=== PATIENT | female | born 1930 | race Caucasian/White ===

== ENCOUNTER → 2016-11-24 | Outpatient (CLI) | payer OTHER ==
[~2016-11-24] MED LIST: ALBU1AER9 INH; AMLO-114 PO; AMLO10TA4 PO; ATOR-22 PO; CALCIUM 150 MG PO; CHOL100010 PO; CHOL20007 PO; CLOP1TAB15 PO; DYZ PO; FLUO10CA48 PO; FLUO20CA35 PO; FLUT1INH INH; LEVO25TA5 PO; LISI40TA PO; METO100T44 PO; MULT-506 PO; MULT-513 PO; OMEG-132 PO; PRED10TA PO; PRLSR20 PO; QSTP PO; SIMV40TA2 PO; TMF75 PO; TPRSR/100 PO; TRIA37.5 PO; VANC5CAP PO; VNTHFA/IN INH; [UNRECOGNIZED DRUG - CODE] PO
[2016-11-24 13:36] LABS: BLOOD UREA NITROGEN 29 mg/dl (7-18); BUN/CREATININE RATIO 26.7 (10-20); CARBON DIOXIDE 29 mmol/L (21-32); CHLORIDE 104 mmol/L (98-107); GLUCOSE 112 mg/dl (70-99); POTASSIUM 3.8 mmol/L (3.5-5.1); SODIUM 139 mmol/L (136-145)
[2016-11-24 13:55] LABS: CALCIUM 9.8 mg/dl (8.5-10.1)
== END | disposition home or self-care (01) ==
LOC: C.LABPVFM 09:07
PROVIDERS: ATTEND Family Medicine
DX: I10 Essential (primary) hypertension (principal); E03.9 Hypothyroidism, unspecified

== ENCOUNTER 2017-05-18 16:30 | Inpatient (IN) | payer OTHER ==
[~2017-05-18] VITALS: Ht 157.5 cm; Wt 73.4 kg
[~2017-05-18 16:30] MED LIST changes: -AMLO10TA4 PO; -ATOR-22 PO; -CHOL20007 PO; -FLUO10CA48 PO; -METO100T44 PO; +METO1TAB69 PO; -MULT-513 PO; -OMEG-132 PO; -PRED10TA PO; -PRLSR20 PO; -QSTP PO; -TPRSR/100 PO; -TRIA37.5 PO; -VANC5CAP PO; -VNTHFA/IN INH; -[UNRECOGNIZED DRUG - CODE] PO
[2017-05-18] MEDS ORDERED: SODIUM CHLORIDE 0.9% 1000ML 1,000 ML IV STA (17:16)
--- NOTE | 2017-05-18 17:34 | EMERGENCY ROOM VISIT NOTE ---
History Report prepared by Henok: Reva Pavon Under the Supervision of: Dr. Jack Vegas M.D. First contact with patient: 17:05 Chief Complaint: FALL Stated Complaint: MULTIPLE FALLS/NAUSEA History of Present Illness The patient is an 86 year old female who presents to the Emergency Room with complaints of multiple falls today. The patient presents to the ED by EMS. She lives at home with her . She fell twice today. The first time she was not feeling lightheaded and just fell to the ground. The second time she fell because she had right hip pain. After the second fall, she started having diarrhea, vomiting, and diaphoresis. She denies any head pain or neck pain. Her family notes that she only ate some yogurt today. She has had a stroke in the past. She is currently on Plavix. She has a history of knee problems and gets cortisone shots regularly. Source of History: patient, family Onset: today Position: other (global) Quality: other (falls) Timing: other (multiple) Associated Symptoms: + diaphoresis, + vomiting, + diarrhea, No headache, No neck pain Review of Systems See HPI for pertinent positives & negatives. A total of 10 systems reviewed and were otherwise negative. Past Medical & Surgical Medical Problems: (1) ROXANNA (acute kidney injury) (2) ROXANNA (acute kidney injury) (3) Asthma (4) HTN (hypertension) (5) Influenza (6) Urinary tract infection (7) UTI (urinary tract infection) Family History Noncontributory secondary to age. Social History Smoking Status: Never Smoker Alcohol Use: none Marital Status: Housing Status: lives with significant other Occupation Status: retired Current/Historical Medications Scheduled Amlodipine Besylate (Norvasc), 10 MG PO DAILY Atorvastatin (Lipitor), 20 MG PO DAILY Calcium (Elite Calcium), 2 TAB PO BID Cholecalciferol (Vitamin D3), 1 TAB PO DAILY Clopidogrel (Plavix), 75 MG PO DAILY Fluoxetine (Prozac), 10 MG PO UD Fluoxetine (Prozac), 20 MG PO DAILY Fluticasone Furoate-Vilanterol (Breo Ellipta), 1 PUFF INH DAILY Levothyroxine Sodium (Levothyroxine Sodium), 1 TAB PO DAILY Lisinopril (Zestril), 40 MG PO DAILY Metoprolol Succinate (Metoprolol Succinate ER), 1 TAB PO DAILY Multivitamins/Minerals (Mvi With Minerals), 1 TAB PO DAILY Crimora-3 Fatty Acids (Fish Oil 500 mg), 2 CAP PO DAILY Omeprazole (Prilosec), 20 MG PO DAILY Triamterene/Hctz (Dyazide 37.5MG/25MG), 1 TAB PO DAILY Scheduled PRN Albuterol Hfa (Ventolin Hfa), 1-2 PUFFS INH QID PRN for SOB/Wheezing Allergies Coded Allergies: Cefuroxime (Verified Allergy, Unknown, Unknown, 05/18/17) Ciprofloxacin (Verified Allergy, Unknown, Unknown, 05/18/17) Codeine (Verified Allergy, Unknown, 05/18/17) Meperidine (Verified Allergy, Unknown, 05/18/17) Oxycodone (Verified Allergy, Unknown, RASH, 05/18/17) Propoxyphene (Verified Allergy, Unknown, 05/18/17) Sulfa Antibiotics (Verified Allergy, Unknown, ., 05/18/17) Sulfamethoxazole (Verified Allergy, Unknown, 05/18/17) Trimethoprim (Verified Allergy, Unknown, 05/18/17) Amphetamine (Unverified Adverse Reaction, Severe, ., 05/18/17) Dextroamphetamine (Unverified Adverse Reaction, Severe, ., 05/18/17) Hydrochlorothiazide (Verified Adverse Reaction, Unknown, GI DISTRESS, ) Methyldopa (Verified Adverse Reaction, Unknown, GI DISTRESS, 09/19/09) Physical Exam Vital Signs Date Time Temp Pulse Resp B/P (MAP) Pulse Ox O2 Delivery O2 Flow Rate FiO2 05/18/17 21:00 75 20 154/76 99 Room Air 05/18/17 20:43 Room Air 05/18/17 19:54 62 20 153/61 98 Room Air 05/18/17 18:39 70 18 153/82 100 Room Air 05/18/17 18:32 63 20 172/70 100 Room Air 70 153/82 66 109/71 05/18/17 17:41 70 05/18/17 17:11 100 Room Air 05/18/17 16:30 36.4 69 18 112/88 100 Room Air Physical Exam GENERAL: Patient is a healthy-appearing well-nourished female HEAD: Normocephalic atraumatic EYES: Ocular movements intact pupils equal and react to light OROPHARYNX mucous membranes are moist no exudates present no erythema or edema present NECK: Supple no nuchal rigidity CHEST: Good equal expansion LUNGS: Clear and equal to auscultation CARDIAC: Normal S1 and S2 ABDOMEN: Soft nontender no guarding BACK: No CVA tenderness EXTREMITIES: Normal muscle strength in all groups no clubbing cyanosis or edema , contusion to the right hip area. NEURO: Patient is following commands and answering questions appropriately. Alert and oriented x3 Cranial Nerves 2-12 grossly intact Medical Decision & Procedures ER Provider Diagnostic Interpretation: X-ray results as stated below per interpretation by me and the radiologist. Radiology results as stated below per my review and radiologist interpretation: CHEST ONE VIEW PORTABLE HISTORY: 86 years-old Female Pt c/o multiple falls acute right hip pain with multiple falls. Acute nausea. COMPARISON: Chest radiograph 08/05/2016 TECHNIQUE: Portable upright AP view of the chest FINDINGS: Cardiac silhouette is mildly enlarged. There is atherosclerosis of the aorta. No pneumothorax, pleural effusion, focal airspace consolidation or overt pulmonary edema. There is mild right hemidiaphragmatic elevation. The lungs are mildly hypoinflated. Bilateral bronchial wall thickening with possible bronchiectasis noted. The bones are grossly intact and are mildly demineralized. Degenerative changes are seen about the shoulders and spine. IMPRESSION: 1. No focal airspace consolidation to suggest pneumonia. 2. Bilateral bronchial wall thickening suggesting bronchitis with possible bronchiectasis. The above report was generated using voice recognition software. It may contain grammatical, syntax or spelling errors. Electronically signed by: Shay Yousif M.D. 05/18/2017 6:39 PM Dictated Date/Time: 05/18/2017 6:34 PM PELVIS 1 OR 2 VIEW ROUTINE, R FEMUR 2 VIEWS ROUTINE HISTORY: 86 years-old Female Pt c/o Rt hip pain acute right-sided hip pain with multiple falls. COMPARISON: Left hip radiographs 02/14/2013 TECHNIQUE: Single AP view of the pelvis with 2 views of the right femur FINDINGS: PELVIS: The bones are mildly demineralized. Moderate osteoarthritis involves the bilateral femoral acetabular joints. Advanced degenerative changes are seen involving the lower lumbar spine. No acute pelvic fracture identified. Moderate soft tissue swelling is noted about the right hip. RIGHT FEMUR: Severe tricompartmental osteoarthritis is noted about the knee. No acute fracture or dislocation. IMPRESSION: 1. Moderate soft tissue swelling about the right hip without acute fracture or dislocation. 2. Background osteopenia is noted with moderate bilateral hip and severe tricompartmental right knee osteoarthritis. The above report was generated using voice recognition software. It may contain grammatical, syntax or spelling errors. Electronically signed by: Shay Yousif M.D. 05/18/2017 6:28 PM Dictated Date/Time: 05/18/2017 6:[address] SCAN OF THE BRAIN WITHOUT IV CONTRAST CLINICAL HISTORY: Multiple falls. COMPARISON STUDY: CT of the brain dated 07/15/2011. TECHNIQUE: Unenhanced axial CT scan of the brain is performed from the vertex to the skull base. CT DOSE: 614.27 mGy.cm FINDINGS: Brain parenchyma: There are age-related involutional changes noting moderate patchy subcortical and periventricular microangiopathic change. There is no hemorrhage, mass effect, or evidence of acute territorial ischemia by CT criteria. Dickey-white matter is preserved. No extra-axial fluid collection is seen. Chronic lacunar infarcts are identified in the right cerebellar hemisphere, the paz, both caudate heads, and the left basal ganglia. Prominent extra-axial CSF is likely related to volume loss and unchanged from 2010. Ventricles, sulci, cisterns: Prominent secondary to involutional change. Intracranial vasculature: There is atherosclerotic calcification of the cavernous carotid intervertebral arteries. Calvarium: The skeletal structures are osteopenic. No depressed calvarial fracture is seen. 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 Sinuses and mastoids: The visualized paranasal sinuses are clear. The mastoid air cells are well pneumatized. Orbits: The bony orbits are grossly intact. There are bilateral ocular lens implants. IMPRESSION: Senescent changes as above with no hemorrhage, mass effect, or evidence of acute territorial ischemia by CT criteria. Electronically signed by: Justin Flores M.D. 05/18/2017 6:03 PM Dictated Date/Time: 05/18/2017 5:59 PM Laboratory Results 05/18/17 17:45 Red Blood Count 3.86, Mean Corpuscular Volume 85.2, Mean Corpuscular Hemoglobin 27.7, Mean Corpuscular Hemoglobin Concent 32.5, Mean Platelet Volume 8.7, Neutrophils (%) (Auto) 85.9, Lymphocytes (%) (Auto) 7.8, Monocytes (%) (Auto) 5.3, Eosinophils (%) (Auto) 0.3, Basophils (%) (Auto) 0.3, Neutrophils # (Auto) 11.51, Lymphocytes # (Auto) 1.04, Monocytes # (Auto) 0.71, Eosinophils # (Auto) 0.04, Basophils # (Auto) 0.04 05/18/17 17:45 Test 05/18/17 17:44 05/18/17 17:45 05/18/17 19:15 Bedside Glucose 131 mg/dl (70-90) White Blood Count 13.39 K/uL (4.8-10.8) Red Blood Count 3.86 M/uL (4.2-5.4) Hemoglobin 10.7 g/dL (12.0-16.0) Hematocrit 32.9 % (37-47) Mean Corpuscular Volume 85.2 fL (80-100) Mean Corpuscular Hemoglobin 27.7 pg (25-34) Mean Corpuscular Hemoglobin Concent 32.5 g/dl (32-36) Platelet Count 265 K/uL (130-400) Mean Platelet Volume 8.7 fL (7.4-10.4) Neutrophils (%) (Auto) 85.9 % Lymphocytes (%) (Auto) 7.8 % Monocytes (%) (Auto) 5.3 % Eosinophils (%) (Auto) 0.3 % Basophils (%) (Auto) 0.3 % Neutrophils # (Auto) 11.51 K/uL (1.4-6.5) Lymphocytes # (Auto) 1.04 K/uL (1.2-3.4) Monocytes # (Auto) 0.71 K/uL (0.11-0.59) Eosinophils # (Auto) 0.04 K/uL (0-0.5) Basophils # (Auto) 0.04 K/uL (0-0.2) RDW Standard Deviation 43.3 fL (36.4-46.3) RDW Coefficient of Variation 14.2 % (11.5-14.5) Immature Granulocyte % (Auto) 0.4 % Immature Granulocyte # (Auto) 0.05 K/uL (0.00-0.02) Anion Gap 12.0 mmol/L (3-11) Est Creatinine Clear Calc Drug Dose 20.3 ml/min Estimated GFR () 27.4 Estimated GFR (Non- 23.6 BUN/Creatinine Ratio 24.6 (10-20) Calcium Level 9.7 mg/dl (8.5-10.1) Total Bilirubin 0.5 mg/dl (0.2-1) Direct Bilirubin 0.1 mg/dl (0-0.2) Aspartate Amino Transf (AST/SGOT) 14 U/L (15-37) Alanine Aminotransferase (ALT/SGPT) 18 U/L (12-78) Alkaline Phosphatase 63 U/L (45-117) Total Creatine Kinase 71 U/L (26-192) Creatine Kinase MB 1.8 ng/ml (0.5-3.6) Creatine Kinase MB Ratio 2.5 (0-3.0) Troponin I 0.030 ng/ml (0-0.045) Total Protein 7.0 gm/dl (6.4-8.2) Albumin 3.5 gm/dl (3.4-5.0) Thyroid Stimulating Hormone (TSH) 3.610 uIu/ml (0.300-4.500) Urine Color DK YELLOW Urine Appearance TURBID (CLEAR) Urine pH 5.0 (4.5-7.5) Urine Specific Freeman 1.020 (1.000-1.030) Urine Protein 2+ (NEG) Urine Glucose (UA) NEG (NEG) Urine Ketones TRACE (NEG) Urine Occult Blood 3+ (NEG) Urine Nitrite POS (NEG) Urine Bilirubin NEG (NEG) Urine Urobilinogen NEG (NEG) Urine Leukocyte Esterase LARGE (NEG) Urine WBC (Auto) >30 /hpf (0-5) Urine RBC (Auto) >30 /hpf (0-4) Urine Hyaline Casts (Auto) 0 /lpf (0-5) Urine Epithelial Cells (Auto) >30 /lpf (0-5) Urine Bacteria (Auto) 4+ (NEG) Urine Pathogenic Casts /lpf (0) Urine Yeast (Auto) (NONE PRSENT) Labs reviewed by ED physician. Medications Administered Medications (Trade) Dose Ordered Sig/Ace Route Start Time Stop Time Status Last Admin Dose Admin Sodium Chloride 1,000 ml @ 999 mls/hr Q1H1M STAT IV 05/18/17 17:16 05/18/17 18:16 DC 05/18/17 17:16 999 MLS/HR Albuterol Sulfate (Ventolin 0.5% 2.5MG/0.5ML Neb) 2.5 mg NOW STAT INH 05/18/17 19:45 05/18/17 19:47 DC 05/18/17 20:37 2.5 MG Amoxicillin (Amoxil Cap) 500 mg NOW STAT PO 05/18/17 19:48 05/18/17 19:49 DC 05/18/17 20:37 500 MG ECG Indication: other (fall) Rate (beats per minute): 68 Rhythm: normal sinus Findings: no acute ischemic change, prolonged QT, no ectopy ED Course 1706: Past medical records reviewed. The patient was evaluated in room A3. A complete history and physical examination was performed. 1715: NSS 1000 ml @ 999 mls/hr IV. 1944: Albuterol Sulfate 2.5 mg INH. 1947: Amoxicillin 500 mg PO. 1950: Upon reexamination the patient is resting comfortably. I discussed results and treatment plan with the patient. She verbalizes agreement and understanding. The patient will be evaluated for further management. 1956: I discussed the patient's case with Dr. Shel[place] [facility] [place]. He has agreed to evaluate the patient for further management and care. Medical Decision Differential diagnosis: Etiologies such as metabolic, infection, hypo/hyperglycemia, electrolyte abnormalities, cardiac sources, intracerebral event, toxicologic, neurologic, as well as others were entertained. This is an 86-year-old female who presents emergency department complaining of multiple falls today along with a right hip hematoma. The patient is also slightly confused per family. She is in acute renal failure. She was given IV bolus of fluid. She does appear to have a urinary tract infection therefore started on Rocephin. I did discuss the case with the hospitalist service who agreed to admit the patient. Patient family were in agreement with the treatment plan. Medication Reconcilliation Current Medication List: was personally reviewed by me Blood Pressure Screening Patient's blood pressure: Normal blood pressure Blood pressure disposition: Did not require urgent referral Consults Time Called: 1951 Consulting Physician: Dr. Shelley [facility] [place] Returned Call: 1956 I discussed the patient's case with him. He has agreed to evaluate the patient for further management and care. Impression Primary Impression: Fall Additional Impressions: Altered mental status Dehydration Scribe Attestation The scribe's documentation has been prepared under my direction and personally reviewed by me in its entirety. I confirm that the note above accurately reflects all work, treatment, procedures, and medical decision making performed by me. Departure Information Dispostion Being Evaluated By Hospitalist Agustin Lindo M.D. (PCP) Patient Instructions My [facility] Problem Qualifiers Primary Impression: Fall Encounter type: initial encounter Qualified Codes: W19.XXXA - Unspecified fall, initial encounter Additional Impressions: Altered mental status Altered mental status type: unspecified Qualified Codes: R41.82 - Altered mental status, unspecified
[2017-05-18 17:57] LABS: BASO % 0.3 %; BASO ABS # 0.04 K/uL (0-0.2); COMPLETE YES; EOS % 0.3 %; HEMATOCRIT 32.9 % (37-47); IG% 0.4 %; LYMPH % 7.8 %; LYMPH ABS # 1.04 K/uL (1.2-3.4); MEAN CELL VOLUME 85.2 fL (80-100); MEAN CORPUSCULAR HEMOGLOBIN 27.7 pg (25-34); MEAN CORPUSCULAR HGB CONC 32.5 g/dl (32-36); MEAN PLATELET VOLUME 8.7 fL (7.4-10.4); MONO % 5.3 %; NEUT % 85.9 %; PLATELET COUNT 265 K/uL (130-400); RED BLOOD COUNT 3.86 M/uL (4.2-5.4); WHITE BLOOD COUNT 13.39 K/uL (4.8-10.8)
--- NOTE | 2017-05-18 18:04 | DIAGNOSTIC IMAGING REPORT ---
CT SCAN OF THE BRAIN WITHOUT IV CONTRAST CLINICAL HISTORY: Multiple falls. COMPARISON STUDY: CT of the brain dated 07/15/2011. TECHNIQUE: Unenhanced axial CT scan of the brain is performed from the vertex to the skull base. CT DOSE: 614.27 mGy.cm FINDINGS: Brain parenchyma: There are age-related involutional changes noting moderate patchy subcortical and periventricular microangiopathic change. There is no hemorrhage, mass effect, or evidence of acute territorial ischemia by CT criteria. Dickey-white matter is preserved. No extra-axial fluid collection is seen. Chronic lacunar infarcts are identified in the right cerebellar hemisphere, the paz, both caudate heads, and the left basal ganglia. Prominent extra-axial CSF is likely related to volume loss and unchanged from 2011. Ventricles, sulci, cisterns: Prominent secondary to involutional change. Intracranial vasculature: There is atherosclerotic calcification of the cavernous carotid intervertebral arteries. Calvarium: The skeletal structures are osteopenic. No depressed calvarial fracture is seen. 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 Sinuses and mastoids: The visualized paranasal sinuses are clear. The mastoid air cells are well pneumatized. Orbits: The bony orbits are grossly intact. There are bilateral ocular lens implants. IMPRESSION: Senescent changes as above with no hemorrhage, mass effect, or evidence of acute territorial ischemia by CT criteria. Electronically signed by: Justin Flores M.D. 05/18/2017 6:03 PM Dictated Date/Time: 05/18/2017 5:59 PM
[2017-05-18 18:15] LABS: BUN/CREATININE RATIO 24.6 (10-20); CALCIUM 9.7 mg/dl (8.5-10.1); CREATININE 1.9 mg/dl (0.60-1.20); POTASSIUM 3.8 mmol/L (3.5-5.1)
[2017-05-18 18:25] LABS: CKMB/CK RATIO 2.5 (0-3.0); THYROID STIMULATING HORMONE 3.61 uIu/ml (0.300-4.500)
--- NOTE | 2017-05-18 18:29 | DIAGNOSTIC IMAGING REPORT ---
PELVIS 1 OR 2 VIEW ROUTINE, R FEMUR 2 VIEWS ROUTINE HISTORY: 86 years-old Female Pt c/o Rt hip pain acute right-sided hip pain with multiple falls. COMPARISON: Left hip radiographs 02/14/2013 TECHNIQUE: Single AP view of the pelvis with 2 views of the right femur FINDINGS: PELVIS: The bones are mildly demineralized. Moderate osteoarthritis involves the bilateral femoral acetabular joints. Advanced degenerative changes are seen involving the lower lumbar spine. No acute pelvic fracture identified. Moderate soft tissue swelling is noted about the right hip. RIGHT FEMUR: Severe tricompartmental osteoarthritis is noted about the knee. No acute fracture or dislocation. IMPRESSION: 1. Moderate soft tissue swelling about the right hip without acute fracture or dislocation. 2. Background osteopenia is noted with moderate bilateral hip and severe tricompartmental right knee osteoarthritis. The above report was generated using voice recognition software. It may contain grammatical, syntax or spelling errors. Electronically signed by: Shay Yousif M.D. 05/18/2017 6:28 PM Dictated Date/Time: 05/18/2017 6:24 PM
[2017-05-18] MEDS ORDERED: FLUO10CA48 PO ×2 (18:35)
[2017-05-18] MEDS ORDERED: TPRSR/100 PO ×2 (18:35)
[2017-05-18] MEDS ORDERED: FLUO20CA35 PO ×2 (18:35)
[2017-05-18] MEDS ORDERED: CLOP1TAB15 PO (18:35)
[2017-05-18] MEDS ORDERED: CHOL20007 PO ×2 (18:35)
[2017-05-18] MEDS ORDERED: PRLSR20 PO ×2 (18:35)
[2017-05-18] MEDS ORDERED: FLUT1INH INH ×2 (18:35)
[2017-05-18] MEDS ORDERED: MULT-513 PO ×2 (18:35)
[2017-05-18] MEDS ORDERED: TRIA37.5 PO ×2 (18:35)
[2017-05-18] MEDS ORDERED: VNTHFA/IN INH ×2 (18:35)
[2017-05-18] MEDS ORDERED: OMEG-132 PO ×2 (18:35)
[2017-05-18] MEDS ORDERED: LISI40TA PO ×2 (18:35)
[2017-05-18] MEDS ORDERED: ATOR-22 PO ×2 (18:35)
[2017-05-18] MEDS ORDERED: [UNRECOGNIZED DRUG - CODE] PO ×2 (18:35)
[2017-05-18] MEDS ORDERED: LEVO25TA5 PO ×2 (18:35)
[2017-05-18] MEDS ORDERED: AMLO10TA4 PO ×2 (18:35)
--- NOTE | 2017-05-18 18:40 | DIAGNOSTIC IMAGING REPORT ---
CHEST ONE VIEW PORTABLE HISTORY: 86 years-old Female Pt c/o multiple falls acute right hip pain with multiple falls. Acute nausea. COMPARISON: Chest radiograph 08/05/2016 TECHNIQUE: Portable upright AP view of the chest FINDINGS: Cardiac silhouette is mildly enlarged. There is atherosclerosis of the aorta. No pneumothorax, pleural effusion, focal airspace consolidation or overt pulmonary edema. There is mild right hemidiaphragmatic elevation. The lungs are mildly hypoinflated. Bilateral bronchial wall thickening with possible bronchiectasis noted. The bones are grossly intact and are mildly demineralized. Degenerative changes are seen about the shoulders and spine. IMPRESSION: 1. No focal airspace consolidation to suggest pneumonia. 2. Bilateral bronchial wall thickening suggesting bronchitis with possible bronchiectasis. The above report was generated using voice recognition software. It may contain grammatical, syntax or spelling errors. Electronically signed by: Shay Yousif M.D. 05/18/2017 6:39 PM Dictated Date/Time: 05/18/2017 6:34 PM
[2017-05-18 19:33] LABS: URINE APPEARANCE TURBID (CLEAR); URINE BILIRUBIN NEG (NEG); URINE COLOR DK YELLOW; URINE EPITHELIAL CELL AUTO >30 /lpf (0-5); URINE NITRITE POS (NEG); UROBILINOGEN NEG (NEG); ZZURINE CULT IF INDIC CATH YES
[2017-05-18 19:34] LABS: MANUAL MICROSCOPIC REQUIRED? NO; REVIEW REQ? YES
[2017-05-18] MEDS ORDERED: ALBUTEROL 0.5% NEB SOLN 2.5 MG/0.5 ML VIAL INH STA (19:45)
[2017-05-18] MEDS ORDERED: AMOXICILLIN 250 MG CAP PO STA (19:48)
[2017-05-18 20:43] VITALS: Ht 157.5 cm; Wt 73.4 kg
[2017-05-18] MEDS ORDERED: ALBUTEROL HFA 8 GM INHALER INH PRN (21:00)
[2017-05-18] MEDS ORDERED: ACETAMINOPHEN 325 MG TAB PO PRN (21:00)
[2017-05-18] MEDS ORDERED: ONDANSETRON INJ 2 MG/ML 2 ML VIAL IV PRN (21:00)
[2017-05-18] MEDS ORDERED: POLYETHYLENE (MIRALAX) 17 GM PACK PO PRN (21:00)
[2017-05-18] MEDS ORDERED: MAGNESIUM HYDROXIDE SUSP 30 ML UDC PO PRN (21:00)
[2017-05-18] MEDS ORDERED: ALUMINUM/MAGNESIUM/SIMETH (MAALOX MAX) 30 ML UDC PO PRN (21:00)
--- NOTE | 2017-05-18 21:10 | History and Physical ---
History & Physical Date & Time of Service: May 18, 2017 at 21:03 Chief Complaint: Multiple Falls/Nausea Primary Care Physician: Agustin Cornejo M.D. History of Present Illness Source: patient Patient is an 86-year-old female, who presents to the ED for malaise. Patient states that this morning she was walking around and sustain a fall at home. She denies hitting her head. Her is in the room also does state that she is quite slow with ventilation and does require a walker she is generally unstable on her feet. Prior to the fall, the patient denies lightheadedness, dizziness, chest pain, palpitations. The patient is unclear how long she was on the ground for states that she did not lose consciousness. She did states that she have a difficulty getting up due to pain in her left hip , which is now resolved. The daughter accompanies her today also states that today she's been having vomiting, and diarrhea. Today her appetite is been quite poor. Her daughter also states that baseline she has generally poor oral fluid intake. The patient states that she has had some urinary frequency, but denies dysuria. In addition she states she's had a history of renal stone. But denies any pain with urination or blood in the urine.. In the ED a urinalysis was suggestive of urinary tract infection, with an increase in her creatinine from 1.1-1.9. Given inability to take by mouth, and apparent weakness for the past day, the decision was made to admit the patient for further evaluation and treatment. 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 Surgical history -Cholecystectomy - Abdominal hernia repair 11 - Right tib/fib fracture - Amezcua in left wrist Family History Noncontributory Social History Smoking Status: Never Smoker Smokeless Tobacco Use: No Alcohol Use: none Drug Use: none Marital Status: Housing status: lives with family Occupational Status: retired Immunizations History of Influenza Vaccine: No History of Tetanus Vaccine?: Yes History of Pneumococcal: Yes History of Hepatitis B Vaccine: No Multi-Drug Resistant Organisms History of MDRO: No Allergies Coded Allergies: Cefuroxime (Verified Allergy, Unknown, Unknown, 05/18/17) Ciprofloxacin (Verified Allergy, Unknown, Unknown, 05/18/17) Codeine (Verified Allergy, Unknown, 05/18/17) Meperidine (Verified Allergy, Unknown, 05/18/17) Oxycodone (Verified Allergy, Unknown, RASH, 05/18/17) Propoxyphene (Verified Allergy, Unknown, 05/18/17) Sulfa Antibiotics (Verified Allergy, Unknown, ., 05/18/17) Sulfamethoxazole (Verified Allergy, Unknown, 05/18/17) Trimethoprim (Verified Allergy, Unknown, 05/18/17) Amphetamine (Unverified Adverse Reaction, Severe, ., 05/18/17) Dextroamphetamine (Unverified Adverse Reaction, Severe, ., 05/18/17) Hydrochlorothiazide (Verified Adverse Reaction, Unknown, GI DISTRESS, ) Methyldopa (Verified Adverse Reaction, Unknown, GI DISTRESS, 09/19/09) Home Medications Scheduled Amlodipine Besylate (Norvasc), 10 MG PO DAILY Atorvastatin (Lipitor), 20 MG PO DAILY Calcium (Elite Calcium), 2 TAB PO BID Cholecalciferol (Vitamin D3), 1 TAB PO DAILY Clopidogrel (Plavix), 75 MG PO DAILY Fluoxetine (Prozac), 10 MG PO UD Fluoxetine (Prozac), 20 MG PO DAILY Fluticasone Furoate-Vilanterol (Breo Ellipta), 1 PUFF INH DAILY Levothyroxine Sodium (Levothyroxine Sodium), 1 TAB PO DAILY Lisinopril (Zestril), 40 MG PO DAILY Metoprolol Succinate (Metoprolol Succinate ER), 1 TAB PO DAILY Multivitamins/Minerals (Mvi With Minerals), 1 TAB PO DAILY [place]-3 Fatty Acids (Fish Oil 500 mg), 2 CAP PO DAILY Omeprazole (Prilosec), 20 MG PO DAILY Triamterene/Hctz (Dyazide 37.5MG/25MG), 1 TAB PO DAILY Scheduled PRN Albuterol Hfa (Ventolin Hfa), 1-2 PUFFS INH QID PRN for SOB/Wheezing Review of Systems A 10 point review of systems was negative unless stated above. Physical Exam Vital Signs Date Time Temp Pulse Resp B/P (MAP) Pulse Ox O2 Delivery O2 Flow Rate FiO2 05/18/17 20:43 Room Air 05/18/17 19:54 62 20 153/61 98 Room Air 05/18/17 18:39 70 18 153/82 100 Room Air 05/18/17 18:32 63 20 172/70 100 Room Air 70 153/82 66 109/71 05/18/17 17:41 70 05/18/17 17:11 100 Room Air 05/18/17 16:30 36.4 69 18 112/88 100 Room Air General Appearance: WD/WN, no apparent distress Head: normocephalic, atraumatic Eyes: normal inspection, EOMI ENT: hearing grossly normal, pharynx normal Neck: supple, no adenopathy, no JVD Respiratory/Chest: lungs clear, no respiratory distress Cardiovascular: regular rate, rhythm, no gallop, no murmur Abdomen/GI: normal bowel sounds, non tender, soft Back: no CVA tenderness, no muscle spasm Extremities/Musculoskelatal: no calf tenderness, no pedal edema Neurologic/Psych: alert, normal mood/affect, oriented x 3 Skin: normal color, warm/dry, no rash Lymphatic: no adenopathy Diagnostics Laboratory Results Results Past 24 Hours Test 05/18/17 17:45 05/18/17 19:15 Range/Units White Blood Count 13.39 4.8-10.8 K/uL Red Blood Count 3.86 4.2-5.4 M/uL Hemoglobin 10.7 12.0-16.0 g/dL Hematocrit 32.9 37-47 % Mean Corpuscular Volume 85.2 80-100 fL Mean Corpuscular Hemoglobin 27.7 25-34 pg Mean Corpuscular Hemoglobin Concent 32.5 32-36 g/dl Platelet Count 265 130-400 K/uL Mean Platelet Volume 8.7 7.4-10.4 fL Neutrophils (%) (Auto) 85.9 % Lymphocytes (%) (Auto) 7.8 % Monocytes (%) (Auto) 5.3 % Eosinophils (%) (Auto) 0.3 % Basophils (%) (Auto) 0.3 % Neutrophils # (Auto) 11.51 1.4-6.5 K/uL Lymphocytes # (Auto) 1.04 1.2-3.4 K/uL Monocytes # (Auto) 0.71 0.11-0.59 K/uL Eosinophils # (Auto) 0.04 0-0.5 K/uL Basophils # (Auto) 0.04 0-0.2 K/uL RDW Standard Deviation 43.3 36.4-46.3 fL RDW Coefficient of Variation 14.2 11.5-14.5 % Immature Granulocyte % (Auto) 0.4 % Immature Granulocyte # (Auto) 0.05 0.00-0.02 K/uL Sodium Level 138 136-145 mmol/L Potassium Level 3.8 3.5-5.1 mmol/L Chloride Level 104 98-107 mmol/L Carbon Dioxide Level 22 21-32 mmol/L Anion Gap 12.0 3-11 mmol/L Blood Urea Nitrogen 47 7-18 mg/dl Creatinine 1.90 0.60-1.20 mg/dl Est Creatinine Clear Calc Drug Dose 20.3 ml/min Estimated GFR () 27.4 Estimated GFR (Non- 23.6 BUN/Creatinine Ratio 24.6 10-20 Random Glucose 132 70-99 mg/dl Calcium Level 9.7 8.5-10.1 mg/dl Total Bilirubin 0.5 0.2-1 mg/dl Direct Bilirubin 0.1 0-0.2 mg/dl Aspartate Amino Transf (AST/SGOT) 14 15-37 U/L Alanine Aminotransferase (ALT/SGPT) 18 12-78 U/L Alkaline Phosphatase 63 45-117 U/L Total Creatine Kinase 71 26-192 U/L Creatine Kinase MB 1.8 0.5-3.6 ng/ml Creatine Kinase MB Ratio 2.5 0-3.0 Troponin I 0.030 0-0.045 ng/ml Total Protein 7.0 6.4-8.2 gm/dl Albumin 3.5 3.4-5.0 gm/dl Thyroid Stimulating Hormone (TSH) 3.610 0.300-4.500 uIu/ml Urine Color DK YELLOW Urine Appearance TURBID CLEAR Urine pH 5.0 4.5-7.5 Urine Specific [place] 1.020 1.000-1.030 Urine Protein 2+ NEG Urine Glucose (UA) NEG NEG Urine Ketones TRACE NEG Urine Occult Blood 3+ NEG Urine Nitrite POS NEG Urine Bilirubin NEG NEG Urine Urobilinogen NEG NEG Urine Leukocyte Esterase LARGE NEG Urine WBC (Auto) >30 0-5 /hpf Urine RBC (Auto) >30 0-4 /hpf Urine Hyaline Casts (Auto) 0 0-5 /lpf Urine Epithelial Cells (Auto) >30 0-5 /lpf Urine Bacteria (Auto) 4+ NEG Urine Pathogenic Casts 0 /lpf Urine Yeast (Auto) NONE PRSENT Microbiology Results 05/18/17 Urine Culture, Received Pending Diagnostic Radiology PELVIS 1 OR 2 VIEW ROUTINE, R FEMUR 2 VIEWS ROUTINE HISTORY: 86 years-old Female Pt c/o Rt hip pain acute right-sided hip pain with multiple falls. COMPARISON: Left hip radiographs 02/14/2013 TECHNIQUE: Single AP view of the pelvis with 2 views of the right femur FINDINGS: PELVIS: The bones are mildly demineralized. Moderate osteoarthritis involves the bilateral femoral acetabular joints. Advanced degenerative changes are seen involving the lower lumbar spine. No acute pelvic fracture identified. Moderate soft tissue swelling is noted about the right hip. RIGHT FEMUR: Severe tricompartmental osteoarthritis is noted about the knee. No acute fracture or dislocation. IMPRESSION: 1. Moderate soft tissue swelling about the right hip without acute fracture or dislocation. 2. Background osteopenia is noted with moderate bilateral hip and severe tricompartmental right knee osteoarthritis. The above report was generated using voice recognition software. It may contain grammatical, syntax or spelling errors. Electronically signed by: Shay Yousif M.D. 05/18/2017 6:28 PM Dictated Date/Time: 05/18/2017 6:24 PM CHEST ONE VIEW PORTABLE HISTORY: 86 years-old Female Pt c/o multiple falls acute right hip pain with multiple falls. Acute nausea. COMPARISON: Chest radiograph 08/05/2016 TECHNIQUE: Portable upright AP view of the chest FINDINGS: Cardiac silhouette is mildly enlarged. There is atherosclerosis of the aorta. No pneumothorax, pleural effusion, focal airspace consolidation or overt pulmonary edema. There is mild right hemidiaphragmatic elevation. The lungs are mildly hypoinflated. Bilateral bronchial wall thickening with possible bronchiectasis noted. The bones are grossly intact and are mildly demineralized. Degenerative changes are seen about the shoulders and spine. IMPRESSION: 1. No focal airspace consolidation to suggest pneumonia. 2. Bilateral bronchial wall thickening suggesting bronchitis with possible bronchiectasis. The above report was generated using voice recognition software. It may contain grammatical, syntax or spelling errors. Electronically signed by: Shay Yousif M.D. 05/18/2017 6:39 PM Dictated Date/Time: 05/18/2017 6:34 PM The status of this report is Signed. Draft = Not yet reviewed or approved by Radiologist. Signed = Reviewed and approved by Radiologist. Impression Assessment and Plan 86-year-old female with weakness, urinary tract infection and acute kidney injury. She'll be admitted for IV rehydration, antibiotics and OT and PT evaluations. Our plan for her is as follows Urinary Tract Infection - Urine cultures pending - Patient is noted to have multiple allergies including allergies to cephalosporins and quinolones - The patient be started on Zosyn - Consult infectious diseases for guidance on antibiotics. Acute Kidney Injury - Cr. 1.9; base 1.1 - Likely secondary to combination of urinary tract infection as well as hydration - The patient is rehydrated and 1 L normal saline Will continue to rehydrate her overnight with normal saline +20 KCl @ 125 ml/ hr - Repeat BMP with morning labs Fall with hip pain - Likely secondary to UTI and dehydration - Treat as above - Pain to right hip initially but this is now improved: Tylenol as needed and we can escalate accordingly if not controlled - No acute fractures noted on imaging - OT/PT evaluations Hypothyroidism - Continue Levothyroxine Attending Addendum: I have physically seen and examined this patient, have directed the resident's medical activities, and agree with the H&P as noted above with the following exceptions as noted. The patient is awake, alert and oriented 3, normocephalic and atraumatic, lying in bed and in no acute distress. HEENT--PERRL, EOMI, mucous membranes and oropharynx dry. Neck--supple, no JVD or bruits, thyroid normal, trachea midline, no adenopathy. Heart--normal S1 and S2, no extra beats, no murmurs, rubs or gallops. Lungs--clear bilaterally with good air movement, no respiratory distress, no accessory muscle use. Abdomen--normal bowel sounds and soft, nontender and nondistended, no hernias or masses, no organomegaly. Extremities--no cyanosis, clubbing or edema. There are good distal pulses b/l. Dermatologic--normal skin turgor, normal color, warm and dry, no abnormal lymph nodes, no rash. Neurologic--cranial nerves II through XII grossly intact. Rheumatologic--normal range of motion, nontender, muscles and joints. Psychiatric--normal affect. Assessment and Plan: Acute kidney injury-- Baseline creatinine at 1.1, with creatinine 1.9 upon presentation. Received 1 L normal saline in the ED. Normal saline with KCl 20 mEq at 125 ML's per hour. Repeat BMP and magnesium level in the a.m. UTI-- Follow urine culture and sensitivities. Start Zosyn 3.375 mg IV every 12 hours. Patient is allergic to cephalosporins and quinolones. Cerebrovascular disease/hypertension-- Continue clopidogrel, metoprolol and amlodipine. Hold triamterene/HCTZ Hypothyroidism-- Continue levothyroxin Asthma - Albuterol - Breo - I added on DuoNeb PRN in case the patient is short of breath History of CVA - Continue Atorvastatin - Continue Plavix Hypertension - Continue Metoprolol - Continue Triamtrene/HCTZ - Continue Amlodipine - Blood pressures are she fairly good in the setting of dehydration so we can continue his medicines at this time, we can hold if the systolic blood pressure goes below 100 Hyperlipidemia - Continue Atorvastatin Depression - Continue Fluoxetine Osteoarthritis - Tylenol PRN DVT Prophylaxis - SCD Knee, BARRY Hose - Heparin 5000 U s.c. 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 Y/N: Yes Risk Level: Moderate Given or contraindicated: Unfractionated heparin SQ
[2017-05-18] MEDS ORDERED: ERTAPENEM IV 1 GM in SODIUM CHLOR 0.9% AD-VAN 50ML 50 ML IV SCH (21:15)
[2017-05-18] MEDS ORDERED: INFLUENZA VACCINE HIGH DOSE 65+ 0.5 ML SYR IM. ONE (21:45)
[2017-05-18] MEDS ORDERED: INFLUENZA ADMINISTRATION CHARGE ONE (21:45)
[2017-05-18] MEDS ORDERED: IV FLUIDS COMPLETED PRN (21:45)
[2017-05-18] MEDS ORDERED: ALBUT/IPRATROP 3MG/0.5MG NEB 3 ML VIAL INH PRN (21:45)
[2017-05-18] MEDS ORDERED: PNEUMOCOCCAL ADMINISTRATION CHARGE ONE (21:45)
[2017-05-18] MEDS ORDERED: PNEUMOCOCCAL POLYSACCHARIDES 25 MCG/0.5 ML VIAL/SYR IM. ONE (21:45)
[2017-05-18 22:43] VITALS: O2SAT 98
[2017-05-18] MEDS ORDERED: PIPERACILL/TAZOBAC IV 3.375 GM in DEXTROSE 5% 100ML IV ONE (23:00)
[2017-05-18] MEDS: NSS + 20MEQ KCL 1000ML 1,000 ML IV SCH (23:33)
[2017-05-18] MEDS: CALCIUM CARBONATE 1250MG TAB PO SCH (23:34)
[2017-05-19] MEDS: PIPERACILL/TAZOBAC IV 3.375 GM in DEXTROSE 5% 100ML 100 ML IV SCH ×3 (03:46→21:16)
[2017-05-19 06:26] LABS: HEMATOCRIT 23.7 % (37-47); MEAN CELL VOLUME 85.3 fL (80-100); MEAN CORPUSCULAR HEMOGLOBIN 28.8 pg (25-34); MEAN CORPUSCULAR HGB CONC 33.8 g/dl (32-36); MEAN PLATELET VOLUME 8.3 fL (7.4-10.4); PLATELET COUNT 183 K/uL (130-400); RED BLOOD COUNT 2.78 M/uL (4.2-5.4); WHITE BLOOD COUNT 8.99 K/uL (4.8-10.8)
[2017-05-19 06:44] LABS: PROTHROMBIN TIME (PATIENT) 11.2 SECONDS (9.0-12.0)
[2017-05-19 07:08] VITALS: BP 128/71; PULSE 69; TEMP 36.8; O2SAT 97
[2017-05-19 07:12] LABS: BUN/CREATININE RATIO 25.7 (10-20); CALCIUM 8.9 mg/dl (8.5-10.1); CREATININE 1.8 mg/dl (0.60-1.20); POTASSIUM 3.2 mmol/L (3.5-5.1)
[2017-05-19] MEDS ORDERED: TRIAMTERENE/HCTZ 37.5/25MG CAP PO SCH (08:00)
[2017-05-19] MEDS ORDERED: HEPARIN SOD 5000 UNIT/0.5 ML CARP SQ SCH (08:00)
[2017-05-19] MEDS ORDERED: CLOPIDOGREL BISULFATE 75 MG TAB PO SCH (08:00)
[2017-05-19] MEDS: NSS + 20MEQ KCL 1000ML 1,000 ML IV SCH ×2 (09:06→15:34)
[2017-05-19] MEDS: CEROVITE ADV FORMULA TAB PO SCH (09:07)
[2017-05-19] MEDS: ATORVASTATIN 20 MG TAB PO SCH (09:07)
[2017-05-19] MEDS: OMEGA-3 (PURIFIED FISH OIL) 1 GM CAP PO SCH (09:08)
[2017-05-19] MEDS: AMLODIPINE BESYLATE 5 MG TAB PO SCH (09:08)
[2017-05-19] MEDS: CALCIUM CARBONATE 1250MG TAB PO SCH ×2 (09:09→21:17)
[2017-05-19] MEDS: FLUOXETINE HCL 20 MG CAP PO SCH (09:10)
[2017-05-19] MEDS: PANTOprazole SOD 40 MG TAB PO SCH (09:10)
[2017-05-19] MEDS: METOPROLOL SUCC 50MG EXT REL TAB PO SCH (09:11)
[2017-05-19] MEDS: LISINOPRIL 40 MG TAB PO SCH (09:12)
[2017-05-19] MEDS: CHOLECALCIFEROL 1000 INTER.UNIT TAB PO SCH (09:12)
[2017-05-19] MEDS: RASPBERRY SYRUP 5 ML UDP PO SCH ×4 (09:13→21:16)
[2017-05-19] MEDS: VANCOMYCIN HCL 125 MG/2.5ML SOLN PO SCH ×4 (09:13→21:16)
[2017-05-19] MEDS ORDERED: POTASSIUM CHLORIDE 10 MEQ TABCR PO ONE ×2 (09:15→12:00)
[2017-05-19] MEDS ORDERED: LEVOTHYROXINE 25 MCG TAB PO ONE (10:15)
--- NOTE | 2017-05-19 10:25 | Medical Consult ---
Consultation Date of Consultation: May 19, 2017. Attending Physician: Enmanuel Loomis D.O. Reason for Consultation: UTI, multiple antibiotic allergies History of Present Illness 86-year-old female with history of hypertension, asthma, and prior urinary tract infections this was in usual state of health until day of admission when she suffered a fall. According to family member she had 1 day history of increasing weakness and fatigue, associated with nausea and diarrhea with episode of vomiting. she was brought to the hospital, complaining of pain in her right hip from fall, but x-rays were negative. She was found to have leukocytosis and admitted to the hospital for further management. urinalysis consistent with urinary tract infection, cultures are pending. Now found to have positive C difficile PCR. Has been started empirically on oral vancomycin therapy, diarrhea slightly better. Past Medical/Surgical History Medical Problems: (1) Altered mental status Status: Acute (2) Dehydration Status: Acute (3) Fall Status: Acute (4) Influenza Status: Acute (5) Tachycardia Status: Acute (6) UTI (urinary tract infection) Status: Acute Medical Problems: (1) ROXANNA (acute kidney injury) (2) ROXANNA (acute kidney injury) (3) Asthma (4) HTN (hypertension) (5) Influenza (6) Urinary tract infection (7) UTI (urinary tract infection) Family History Noncontributory Social History Smoking Status: Never Smoker Smokeless Tobacco Use: No Alcohol Use: none Drug Use: none Marital Status: Housing Status: lives with significant other Occupation Status: retired Allergies Coded Allergies: Cefuroxime (Verified Allergy, Unknown, Unknown, 05/18/17) Ciprofloxacin (Verified Allergy, Unknown, Unknown, 05/18/17) Codeine (Verified Allergy, Unknown, 05/18/17) Meperidine (Verified Allergy, Unknown, 05/18/17) Oxycodone (Verified Allergy, Unknown, RASH, 05/18/17) Propoxyphene (Verified Allergy, Unknown, 05/18/17) Sulfa Antibiotics (Verified Allergy, Unknown, ., 05/18/17) Sulfamethoxazole (Verified Allergy, Unknown, 05/18/17) Trimethoprim (Verified Allergy, Unknown, 05/18/17) Amphetamine (Unverified Adverse Reaction, Severe, ., 05/18/17) Dextroamphetamine (Unverified Adverse Reaction, Severe, ., 05/18/17) Hydrochlorothiazide (Verified Adverse Reaction, Unknown, GI DISTRESS, ) Methyldopa (Verified Adverse Reaction, Unknown, GI DISTRESS, 09/19/09) Current Inpatient Medications Current Inpatient Medications Medications (Trade) Dose Ordered Sig/Ace Route Start Time Stop Time Status Last Admin Dose Admin Heparin Sodium (Porcine) (Heparin Sq 5000 Unit/0.5ml) 5,000 unit Q8H SQ 05/19/17 08:00 06/18/17 07:59 Acetaminophen (Tylenol Tab) 650 mg Q4H PRN PO 05/18/17 21:00 06/17/17 20:59 Al Hydrox/Mg Hydrox/Simethicone (Maalox Max Susp) 15 ml Q4H PRN PO 05/18/17 21:00 06/17/17 20:59 Magnesium Hydroxide (Milk Of Magnesia Susp) 30 ml Q6H PRN PO 05/18/17 21:00 06/17/17 20:59 Polyethylene (Miralax Powder Packet) 17 gm DAILY PRN PO 05/18/17 21:00 06/17/17 20:59 Ondansetron HCl (Zofran Inj) 4 mg Q6H PRN IV 05/18/17 21:00 06/17/17 20:59 Albuterol (Ventolin Hfa Inhaler) 2 puffs QID PRN INH 05/18/17 21:00 06/17/17 20:59 Amlodipine Besylate (Norvasc Tab) 10 mg DAILY PO 05/19/17 08:00 06/18/17 08:59 05/19/17 09:08 10 MG Atorvastatin Calcium (Lipitor Tab) 20 mg DAILY PO 05/19/17 08:00 06/18/17 08:59 05/19/17 09:07 20 MG Clopidogrel Bisulfate (plAVix TAB) 75 mg DAILY PO 05/19/17 08:00 06/18/17 08:59 05/19/17 09:10 75 MG Fluoxetine HCl (Prozac Cap) 20 mg DAILY PO 05/19/17 08:00 06/18/17 08:59 05/19/17 09:10 20 MG Lisinopril (Zestril Tab) 40 mg DAILY PO 05/19/17 08:00 06/18/17 08:59 05/19/17 09:12 40 MG Multivitamins/ Minerals (Multivitamin W/ Minerals Tab) 1 tab DAILY PO 05/19/17 08:00 06/18/17 08:59 05/19/17 09:07 1 TAB Calcium Carbonate (oS-Jamison 500 TAB) 1,250 mg BID PO 05/18/17 21:00 06/17/17 20:59 05/19/17 09:09 1,250 MG Cholecalciferol (Vitamin D Tab) 2,000 inter.unit DAILY PO 05/19/17 08:00 06/18/17 08:59 05/19/17 09:12 2,000 INTER.UNIT Miscellaneous Information (Order Awaiting Action) 1 ea QS N/A 05/19/17 00:00 06/18/17 00:00 Metoprolol Succinate (Toprol Xl Tab) 100 mg DAILY PO 05/19/17 08:00 06/18/17 08:59 05/19/17 09:11 100 MG Fish Oil ([place]-3 (Purified Fish Oil) Cap) 2 gm DAILY PO 05/19/17 08:00 06/18/17 08:59 05/19/17 09:08 2 GM Pantoprazole Sodium (Protonix Tab) 40 mg DAILY PO 05/19/17 08:00 06/18/17 08:59 05/19/17 09:10 40 MG Potassium Chloride/Sodium Chloride 1,000 ml @ 125 mls/hr Q8H IV 05/18/17 23:00 06/17/17 22:59 05/19/17 09:06 125 MLS/HR Piperacillin Sod/ Tazobactam Sod 3.375 gm/Dextrose 115 ml @ 28.75 mls/ hr Q8H IV 05/19/17 04:00 05/24/17 03:59 05/19/17 03:46 28.75 MLS/HR Miscellaneous (Iv Fluids Completed) 1 ea PRN PRN N/A 05/18/17 21:45 05/18/18 21:44 Albuterol/ Ipratropium (Duoneb) 3 ml PRN PRN INH 05/18/17 21:45 06/17/17 21:44 Vancomycin HCl (Vancomycin Oral Soln) 125 mg QID PO 05/19/17 09:00 05/29/17 08:59 05/19/17 09:13 125 MG Raspberry (Raspberry Syrup 5ml Cup) 5 ml QID PO 05/19/17 09:00 06/02/17 08:59 05/19/17 09:13 5 ML Potassium Chloride (Klor-Con M10) 20 meq NOW ONCE PO 05/19/17 12:00 05/19/17 12:01 Levothyroxine Sodium (Synthroid Tab) 25 mcg DAILYBB PO 05/20/17 06:30 06/19/17 06:29 Review of Systems All systems were reviewed and are negative except as per HPI Physical Exam Date Time Temp Pulse Resp B/P (MAP) Pulse Ox O2 Delivery O2 Flow Rate FiO2 05/19/17 07:08 36.8 69 20 128/71 (90) 97 Room Air 05/19/17 04:00 Room Air 05/19/17 00:00 Room Air 05/18/17 22:43 75 20 144/73 98 05/18/17 22:39 73 20 144/73 99 Room Air 05/18/17 21:00 75 20 154/76 99 Room Air 05/18/17 20:43 Room Air 05/18/17 19:54 62 20 153/61 98 Room Air 05/18/17 18:39 70 18 153/82 100 Room Air 05/18/17 18:32 63 20 172/70 100 Room Air 70 153/82 66 109/71 05/18/17 17:41 70 05/18/17 17:11 100 Room Air 05/18/17 16:30 36.4 69 18 112/88 100 Room Air General Appearance: WD/WN, no apparent distress Head: normocephalic, atraumatic Eyes: normal inspection, EOMI, sclerae normal ENT: normal ENT inspection, pharynx normal Neck: supple, no adenopathy, thyroid normal, trachea midline Respiratory/Chest: chest non-tender, lungs clear, normal breath sounds, no respiratory distress Cardiovascular: regular rate, rhythm, no gallop, no murmur Abdomen/GI: normal bowel sounds, non tender, soft, no organomegaly Back: normal inspection, no CVA tenderness Extremities/Musculoskelatal: no calf tenderness, non-tender Neurologic/Psych: alert, oriented x 3 Skin: normal color, warm/dry, no rash Lymphatic: no adenopathy Laboratory Results Date/Time Source Procedure Growth Status 05/19/17 05:50 Stool C.difficile Toxin B Gene (PCR) - Final Positive for C. difficile toxin B gene Complete 05/19/17 05:50 Stool Shiga Toxin Test Pending Received 05/19/17 05:50 Stool Stool Culture Pending Received 05/18/17 19:15 Urine,Catheterized Urine Culture - Final THREE TYPES OF ORGANISMS PRESENT, ALL... Complete Last 24 Hours Test 05/18/17 17:44 05/18/17 17:45 05/18/17 19:15 05/19/17 05:50 Bedside Glucose 131 mg/dl White Blood Count 13.39 K/uL Red Blood Count 3.86 M/uL Hemoglobin 10.7 g/dL Hematocrit 32.9 % Mean Corpuscular Volume 85.2 fL Mean Corpuscular Hemoglobin 27.7 pg Mean Corpuscular Hemoglobin Concent 32.5 g/dl Platelet Count 265 K/uL Mean Platelet Volume 8.7 fL Neutrophils (%) (Auto) 85.9 % Lymphocytes (%) (Auto) 7.8 % Monocytes (%) (Auto) 5.3 % Eosinophils (%) (Auto) 0.3 % Basophils (%) (Auto) 0.3 % Neutrophils # (Auto) 11.51 K/uL Lymphocytes # (Auto) 1.04 K/uL Monocytes # (Auto) 0.71 K/uL Eosinophils # (Auto) 0.04 K/uL Basophils # (Auto) 0.04 K/uL RDW Standard Deviation 43.3 fL RDW Coefficient of Variation 14.2 % Immature Granulocyte % (Auto) 0.4 % Immature Granulocyte # (Auto) 0.05 K/uL Sodium Level 138 mmol/L Potassium Level 3.8 mmol/L Chloride Level 104 mmol/L Carbon Dioxide Level 22 mmol/L Anion Gap 12.0 mmol/L Blood Urea Nitrogen 47 mg/dl Creatinine 1.90 mg/dl Est Creatinine Clear Calc Drug Dose 20.3 ml/min Estimated GFR () 27.4 Estimated GFR (Non- 23.6 BUN/Creatinine Ratio 24.6 Random Glucose 132 mg/dl Calcium Level 9.7 mg/dl Total Bilirubin 0.5 mg/dl Direct Bilirubin 0.1 mg/dl Aspartate Amino Transf (AST/SGOT) 14 U/L Alanine Aminotransferase (ALT/SGPT) 18 U/L Alkaline Phosphatase 63 U/L Total Creatine Kinase 71 U/L Creatine Kinase MB 1.8 ng/ml Creatine Kinase MB Ratio 2.5 Troponin I 0.030 ng/ml Total Protein 7.0 gm/dl Albumin 3.5 gm/dl Thyroid Stimulating Hormone (TSH) 3.610 uIu/ml Urine Color DK YELLOW Urine Appearance TURBID Urine pH 5.0 Urine Specific [place] 1.020 Urine Protein 2+ Urine Glucose (UA) NEG Urine Ketones TRACE Urine Occult Blood 3+ Urine Nitrite POS Urine Bilirubin NEG Urine Urobilinogen NEG Urine Leukocyte Esterase LARGE Urine WBC (Auto) >30 /hpf Urine RBC (Auto) >30 /hpf Urine Hyaline Casts (Auto) 0 /lpf Urine Epithelial Cells (Auto) >30 /lpf Urine Bacteria (Auto) 4+ Urine Pathogenic Casts /lpf Urine Yeast (Auto) Test 05/19/17 06:05 White Blood Count 8.99 K/uL Red Blood Count 2.78 M/uL Hemoglobin 8.0 g/dL Hematocrit 23.7 % Mean Corpuscular Volume 85.3 fL Mean Corpuscular Hemoglobin 28.8 pg Mean Corpuscular Hemoglobin Concent 33.8 g/dl RDW Standard Deviation 44.4 fL RDW Coefficient of Variation 14.2 % Platelet Count 183 K/uL Mean Platelet Volume 8.3 fL Prothrombin Time 11.2 SECONDS Prothromb Time International Ratio 1.0 Sodium Level 140 mmol/L Potassium Level 3.2 mmol/L Chloride Level 107 mmol/L Carbon Dioxide Level 23 mmol/L Anion Gap 10.0 mmol/L Blood Urea Nitrogen 46 mg/dl Creatinine 1.80 mg/dl Est Creatinine Clear Calc Drug Dose 21.4 ml/min Estimated GFR () 29.2 Estimated GFR (Non- 25.2 BUN/Creatinine Ratio 25.7 Random Glucose 105 mg/dl Calcium Level 8.9 mg/dl [~ rep ct add3]] CHEST ONE VIEW PORTABLE HISTORY: 86 years-old Female Pt c/o multiple falls acute right hip pain with multiple falls. Acute nausea. COMPARISON: Chest radiograph 08/05/2016 TECHNIQUE: Portable upright AP view of the chest FINDINGS: Cardiac silhouette is mildly enlarged. There is atherosclerosis of the aorta. No pneumothorax, pleural effusion, focal airspace consolidation or overt pulmonary edema. There is mild right hemidiaphragmatic elevation. The lungs are mildly hypoinflated. Bilateral bronchial wall thickening with possible bronchiectasis noted. The bones are grossly intact and are mildly demineralized. Degenerative changes are seen about the shoulders and spine. IMPRESSION: 1. No focal airspace consolidation to suggest pneumonia. 2. Bilateral bronchial wall thickening suggesting bronchitis with possible bronchiectasis. The above report was generated using voice recognition software. It may contain grammatical, syntax or spelling errors. Electronically signed by: Shay Yousif M.D. 05/18/2017 6:39 PM Assessment & Plan 86-year-old female with C difficile colitis as well as possible urinary tract infection. Agree with use of oral vancomycin therapy, we will try to narrow antibiotics once final urine culture is available. Will follow.
--- NOTE | 2017-05-19 13:42 | Hospitalist Progress Note ---
Hospitalist Progress Note Date of Service May 19, 2017. Subjective Pt evaluation today including: conversation w/ patient, conversation w/ family , physical exam, chart review, lab review, review of inpatient medication list Voiding: no voiding problems Ms. Parra feels better today than she did yesterday. She has not had diarrhea over the night and is not nauseas or vomiting. Her main complaint is pain in her right hip where she landed when she fell but the pain is tolerable and she does not need pain medications for it. Constitutional: No fever, No chills Respiratory: No cough, No sputum, No shortness of breath Cardiovascular: No chest pain Abdomen: No pain, No nausea, No vomiting, No diarrhea Musculoskeletal: + problem reported (pain over right hip where she landed after her fall. ) Female : No dysuria All Other Systems: Reviewed and Negative Medications Medications (Trade) Dose Ordered Sig/Ace Route Start Time Stop Time Status Last Admin Dose Admin Sodium Chloride 1,000 ml @ 999 mls/hr Q1H1M STAT IV 05/18/17 17:16 05/18/17 18:16 DC 05/18/17 17:16 999 MLS/HR Albuterol Sulfate (Ventolin 0.5% 2.5MG/0.5ML Neb) 2.5 mg NOW STAT INH 05/18/17 19:45 05/18/17 19:47 DC 05/18/17 20:37 2.5 MG Amoxicillin (Amoxil Cap) 500 mg NOW STAT PO 05/18/17 19:48 05/18/17 19:49 DC 05/18/17 20:37 500 MG Amlodipine Besylate (Norvasc Tab) 10 mg DAILY PO 05/19/17 08:00 06/18/17 08:59 05/19/17 09:08 10 MG Atorvastatin Calcium (Lipitor Tab) 20 mg DAILY PO 05/19/17 08:00 06/18/17 08:59 05/19/17 09:07 20 MG Clopidogrel Bisulfate (plAVix TAB) 75 mg DAILY PO 05/19/17 08:00 06/18/17 08:59 Future Hold 05/19/17 09:10 75 MG Fluoxetine HCl (Prozac Cap) 20 mg DAILY PO 05/19/17 08:00 06/18/17 08:59 05/19/17 09:10 20 MG Lisinopril (Zestril Tab) 40 mg DAILY PO 05/19/17 08:00 06/18/17 08:59 05/19/17 09:12 40 MG Multivitamins/ Minerals (Multivitamin W/ Minerals Tab) 1 tab DAILY PO 05/19/17 08:00 06/18/17 08:59 05/19/17 09:07 1 TAB Calcium Carbonate (oS-Jam[place] 500 TAB) 1,250 mg BID PO 05/18/17 21:00 06/17/17 20:59 05/19/17 09:09 1,250 MG Cholecalciferol (Vitamin D Tab) 2,000 inter.unit DAILY PO 05/19/17 08:00 06/18/17 08:59 05/19/17 09:12 2,000 INTER.UNIT Metoprolol Succinate (Toprol Xl Tab) 100 mg DAILY PO 05/19/17 08:00 06/18/17 08:59 05/19/17 09:11 100 MG Fish Oil ([place]-3 (Purified Fish Oil) Cap) 2 gm DAILY PO 05/19/17 08:00 06/18/17 08:59 05/19/17 09:08 2 GM Pantoprazole Sodium (Protonix Tab) 40 mg DAILY PO 05/19/17 08:00 06/18/17 08:59 05/19/17 09:10 40 MG Potassium Chloride/Sodium Chloride 1,000 ml @ 125 mls/hr Q8H IV 05/18/17 23:00 06/17/17 22:59 05/19/17 09:06 125 MLS/HR Piperacillin Sod/ Tazobactam Sod 3.375 gm/Dextrose 115 ml @ 28.75 mls/ hr Q8H IV 05/19/17 04:00 05/24/17 03:59 05/19/17 11:57 28.75 MLS/HR Piperacillin Sod/ Tazobactam Sod 3.375 gm/Dextrose 115 ml @ 230 mls/hr NOW ONCE IV 05/18/17 23:00 05/18/17 23:29 DC 05/18/17 23:33 230 MLS/HR Vancomycin HCl (Vancomycin Oral Soln) 125 mg QID PO 05/19/17 09:00 05/29/17 08:59 05/19/17 11:56 125 MG Raspberry (Raspberry Syrup 5ml Cup) 5 ml QID PO 05/19/17 09:00 06/02/17 08:59 05/19/17 11:56 5 ML Potassium Chloride (Klor-Con M10) 20 meq NOW ONCE PO 05/19/17 12:00 05/19/17 12:01 DC 05/19/17 11:57 20 MEQ Potassium Chloride (Klor-Con M10) 20 meq NOW ONCE PO 05/19/17 09:15 05/19/17 09:16 DC 05/19/17 09:53 20 MEQ Levothyroxine Sodium (Synthroid Tab) 25 mcg NOW ONCE PO 05/19/17 10:15 05/19/17 10:16 DC 05/19/17 11:05 25 MCG Objective Vital Signs Date Time Temp Pulse Resp B/P (MAP) Pulse Ox O2 Delivery O2 Flow Rate FiO2 05/19/17 08:00 Room Air 05/19/17 07:08 36.8 69 20 128/71 (90) 97 Room Air 05/19/17 04:00 Room Air 05/19/17 00:00 Room Air 05/18/17 22:43 75 20 144/73 98 05/18/17 22:39 73 20 144/73 99 Room Air 05/18/17 21:00 75 20 154/76 99 Room Air 05/18/17 20:43 Room Air 05/18/17 19:54 62 20 153/61 98 Room Air 05/18/17 18:39 70 18 153/82 100 Room Air 05/18/17 18:32 63 20 172/70 100 Room Air 70 153/82 66 109/71 05/18/17 17:41 70 05/18/17 17:11 100 Room Air 05/18/17 16:30 36.4 69 18 112/88 100 Room Air Physical Exam Notes: General: no distress Eyes: normal inspection, PERLL Respiratory: chest non tender, clear to auscultation, normal breath sounds, no respiratory distress, no accessory muscle use Cardiac: regular rate and rhythm, no rub or gallop, no murmur, no edema, no jvd GI/: active bowel sounds, no abd pain or tenderness, soft, non distended Extremities: normal range of motion, normal strength, non tender Neuro/Psych: alert and oriented x 3, normal mood and affect Skin: normal color, dry Laboratory Results Last 24 Hours Test 05/18/17 17:44 05/18/17 17:45 05/18/17 19:15 05/19/17 05:50 Bedside Glucose 131 mg/dl White Blood Count 13.39 K/uL Red Blood Count 3.86 M/uL Hemoglobin 10.7 g/dL Hematocrit 32.9 % Mean Corpuscular Volume 85.2 fL Mean Corpuscular Hemoglobin 27.7 pg Mean Corpuscular Hemoglobin Concent 32.5 g/dl Platelet Count 265 K/uL Mean Platelet Volume 8.7 fL Neutrophils (%) (Auto) 85.9 % Lymphocytes (%) (Auto) 7.8 % Monocytes (%) (Auto) 5.3 % Eosinophils (%) (Auto) 0.3 % Basophils (%) (Auto) 0.3 % Neutrophils # (Auto) 11.51 K/uL Lymphocytes # (Auto) 1.04 K/uL Monocytes # (Auto) 0.71 K/uL Eosinophils # (Auto) 0.04 K/uL Basophils # (Auto) 0.04 K/uL RDW Standard Deviation 43.3 fL RDW Coefficient of Variation 14.2 % Immature Granulocyte % (Auto) 0.4 % Immature Granulocyte # (Auto) 0.05 K/uL Sodium Level 138 mmol/L Potassium Level 3.8 mmol/L Chloride Level 104 mmol/L Carbon Dioxide Level 22 mmol/L Anion Gap 12.0 mmol/L Blood Urea Nitrogen 47 mg/dl Creatinine 1.90 mg/dl Est Creatinine Clear Calc Drug Dose 20.3 ml/min Estimated GFR () 27.4 Estimated GFR (Non- 23.6 BUN/Creatinine Ratio 24.6 Random Glucose 132 mg/dl Calcium Level 9.7 mg/dl Total Bilirubin 0.5 mg/dl Direct Bilirubin 0.1 mg/dl Aspartate Amino Transf (AST/SGOT) 14 U/L Alanine Aminotransferase (ALT/SGPT) 18 U/L Alkaline Phosphatase 63 U/L Total Creatine Kinase 71 U/L Creatine Kinase MB 1.8 ng/ml Creatine Kinase MB Ratio 2.5 Troponin I 0.030 ng/ml Total Protein 7.0 gm/dl Albumin 3.5 gm/dl Thyroid Stimulating Hormone (TSH) 3.610 uIu/ml Urine Color DK YELLOW Urine Appearance TURBID Urine pH 5.0 Urine Specific [place] 1.020 Urine Protein 2+ Urine Glucose (UA) NEG Urine Ketones TRACE Urine Occult Blood 3+ Urine Nitrite POS Urine Bilirubin NEG Urine Urobilinogen NEG Urine Leukocyte Esterase LARGE Urine WBC (Auto) >30 /hpf Urine RBC (Auto) >30 /hpf Urine Hyaline Casts (Auto) 0 /lpf Urine Epithelial Cells (Auto) >30 /lpf Urine Bacteria (Auto) 4+ Urine Pathogenic Casts /lpf Urine Yeast (Auto) Test 05/19/17 06:05 White Blood Count 8.99 K/uL Red Blood Count 2.78 M/uL Hemoglobin 8.0 g/dL Hematocrit 23.7 % Mean Corpuscular Volume 85.3 fL Mean Corpuscular Hemoglobin 28.8 pg Mean Corpuscular Hemoglobin Concent 33.8 g/dl RDW Standard Deviation 44.4 fL RDW Coefficient of Variation 14.2 % Platelet Count 183 K/uL Mean Platelet Volume 8.3 fL Prothrombin Time 11.2 SECONDS Prothromb Time International Ratio 1.0 Sodium Level 140 mmol/L Potassium Level 3.2 mmol/L Chloride Level 107 mmol/L Carbon Dioxide Level 23 mmol/L Anion Gap 10.0 mmol/L Blood Urea Nitrogen 46 mg/dl Creatinine 1.80 mg/dl Est Creatinine Clear Calc Drug Dose 21.4 ml/min Estimated GFR () 29.2 Estimated GFR (Non- 25.2 BUN/Creatinine Ratio 25.7 Random Glucose 105 mg/dl Calcium Level 8.9 mg/dl Assessment and Plan 86-year-old female with weakness, urinary tract infection and acute kidney injury. C. Diff Infection - oral Vancomycin Urinary Tract Infection - Urine cultures pending - Patient is noted to have multiple allergies including allergies to cephalosporins and quinolones - Zosyn started 05/18 - Consult infectious diseases for guidance on antibiotics. Acute Kidney Injury - Cr. decreased to 1.8; base 1.1 - Likely secondary to combination of urinary tract infection as well as hydration - The patient is rehydrated and 1 L normal saline Will continue to rehydrate her overnight with normal saline +20 KCl @ 125 ml/ hr - Repeat BMP with morning labs Fall with hip pain - Likely secondary to UTI and dehydration - Treat as above - Pain to right hip initially but this is now improved: Tylenol as needed and we can escalate accordingly if not controlled - No acute fractures noted on imaging - OT/PT evaluations Hypokalemia - repleated Hypothyroidism - Continue Levothyroxine DVT prophylaxis - hold heparin for repeat H&H in the morning, SCDs Resuscitation status - full resuscitation
[2017-05-19 14:21] LABS: HEMATOCRIT 21.3 % (37-47)
[2017-05-19 16:59] VITALS: BP 120/74; PULSE 66; TEMP 36.9; O2SAT 98
[2017-05-20] MEDS: NSS + 20MEQ KCL 1000ML 1,000 ML IV SCH ×2 (00:01→06:23)
[2017-05-20 01:10] VITALS: BP 169/69; PULSE 69; TEMP 36.9; O2SAT 98
[2017-05-20 01:34] VITALS: BP 146/73; PULSE 67
[2017-05-20] MEDS: PIPERACILL/TAZOBAC IV 3.375 GM in DEXTROSE 5% 100ML 100 ML IV SCH ×3 (04:39→20:18)
[2017-05-20] MEDS: LEVOTHYROXINE 25 MCG TAB PO SCH (06:23)
[2017-05-20 07:49] VITALS: BP 148/71; PULSE 67; TEMP 36.5; O2SAT 95
[2017-05-20 08:25] LABS: BUN/CREATININE RATIO 23.5 (10-20); CALCIUM 8.8 mg/dl (8.5-10.1); CREATININE 1.1 mg/dl (0.60-1.20); POTASSIUM 3.7 mmol/L (3.5-5.1)
[2017-05-20] MEDS: AMLODIPINE BESYLATE 5 MG TAB PO SCH (09:37)
[2017-05-20] MEDS: RASPBERRY SYRUP 5 ML UDP PO SCH ×4 (09:37→20:18)
[2017-05-20] MEDS: VANCOMYCIN HCL 125 MG/2.5ML SOLN PO SCH ×4 (09:37→20:18)
[2017-05-20] MEDS: PANTOprazole SOD 40 MG TAB PO SCH (09:38)
[2017-05-20] MEDS: ATORVASTATIN 20 MG TAB PO SCH (09:38)
[2017-05-20] MEDS: METOPROLOL SUCC 50MG EXT REL TAB PO SCH (09:38)
[2017-05-20] MEDS: CEROVITE ADV FORMULA TAB PO SCH (09:39)
[2017-05-20] MEDS: FLUOXETINE HCL 20 MG CAP PO SCH (09:39)
[2017-05-20] MEDS: LISINOPRIL 40 MG TAB PO SCH (09:39)
[2017-05-20] MEDS: CHOLECALCIFEROL 1000 INTER.UNIT TAB PO SCH (09:39)
[2017-05-20] MEDS: CALCIUM CARBONATE 1250MG TAB PO SCH ×2 (09:40→20:19)
[2017-05-20] MEDS: OMEGA-3 (PURIFIED FISH OIL) 1 GM CAP PO SCH (09:40)
[2017-05-20 09:57] LABS: HEMATOCRIT 20.8 % (37-47); MEAN CELL VOLUME 86.7 fL (80-100); MEAN CORPUSCULAR HEMOGLOBIN 29.6 pg (25-34); MEAN CORPUSCULAR HGB CONC 34.1 g/dl (32-36); MEAN PLATELET VOLUME 8.7 fL (7.4-10.4); PLATELET COUNT 162 K/uL (130-400); WHITE BLOOD COUNT 6.21 K/uL (4.8-10.8)
[2017-05-20 10:22] LABS: BASO ABS # 0.06 K/uL (0-0.2); COMPLETE YES; EOS % 5.3 %; HYPERSEGMENTED POLYS 1+; HYPOCHROMIA PRESENT; IG% 0.5 %; LYMPH % 17.1 %; LYMPH ABS # 1.06 K/uL (1.2-3.4); NEUT % 66.1 %; TOXIC GRANULATION 1+; VACUOLIZATION 1+
--- NOTE | 2017-05-20 10:36 | Hospitalist Progress Note ---
Hospitalist Progress Note Date of Service May 20, 2017. Subjective Pt evaluation today including: conversation w/ patient, physical exam, chart review, lab review, review of inpatient medication list Voiding: no voiding problems Ms. Parra is feeling better this morning and was able to ambulate to the bathroom. She is still having some discomfort in her right hip but it is tolerable. She has a good appetite. No diarrhea or blood in urine or stool. Respiratory: No shortness of breath Cardiovascular: No chest pain Abdomen: + see HPI Musculoskeletal: + see HPI Female : + see HPI All Other Systems: Reviewed and Negative Medications Medications (Trade) Dose Ordered Sig/Ace Route Start Time Stop Time Status Last Admin Dose Admin Potassium Chloride (Klor-Con M10) 20 meq NOW ONCE PO 05/19/17 12:00 05/19/17 12:01 DC 05/19/17 11:57 20 MEQ Levothyroxine Sodium (Synthroid Tab) 25 mcg DAILYBB PO 05/20/17 06:30 06/19/17 06:29 05/20/17 06:23 25 MCG Objective Vital Signs Date Time Temp Pulse Resp B/P (MAP) Pulse Ox O2 Delivery O2 Flow Rate FiO2 05/20/17 08:00 Room Air 05/20/17 07:49 36.5 67 16 148/71 (96) 95 05/20/17 01:34 67 146/73 (97) 05/20/17 01:10 36.9 69 18 169/69 (102) 98 05/19/17 23:56 Room Air 05/19/17 16:59 36.9 66 18 120/74 (89) 98 Room Air 05/19/17 16:00 Room Air Laboratory Results Last 24 Hours Test 05/19/17 13:34 05/20/17 07:30 Hemoglobin 7.3 g/dL 7.1 g/dL Hematocrit 21.3 % 20.8 % White Blood Count 6.21 K/uL Red Blood Count 2.40 M/uL Mean Corpuscular Volume 86.7 fL Mean Corpuscular Hemoglobin 29.6 pg Mean Corpuscular Hemoglobin Concent 34.1 g/dl Platelet Count 162 K/uL Mean Platelet Volume 8.7 fL Neutrophils (%) (Auto) 66.1 % Lymphocytes (%) (Auto) 17.1 % Monocytes (%) (Auto) 10.0 % Eosinophils (%) (Auto) 5.3 % Basophils (%) (Auto) 1.0 % Neutrophils # (Auto) 4.11 K/uL Lymphocytes # (Auto) 1.06 K/uL Monocytes # (Auto) 0.62 K/uL Eosinophils # (Auto) 0.33 K/uL Basophils # (Auto) 0.06 K/uL RDW Standard Deviation 45.6 fL RDW Coefficient of Variation 14.2 % Immature Granulocyte % (Auto) 0.5 % Immature Granulocyte # (Auto) 0.03 K/uL Hypersegmented Polys 1+ Toxic Granulation 1+ Toxic Vacuolation 1+ Hypochromasia PRESENT Sodium Level 144 mmol/L Potassium Level 3.7 mmol/L Chloride Level 111 mmol/L Carbon Dioxide Level 24 mmol/L Anion Gap 9.0 mmol/L Blood Urea Nitrogen 26 mg/dl Creatinine 1.10 mg/dl Est Creatinine Clear Calc Drug Dose 35.1 ml/min Estimated GFR () 53.0 Estimated GFR (Non- 45.7 BUN/Creatinine Ratio 23.5 Random Glucose 89 mg/dl Calcium Level 8.8 mg/dl Assessment and Plan 86-year-old female with weakness, urinary tract infection and acute kidney injury. C. Diff Infection - oral Vancomycin Urinary Tract Infection - Urine cultures pending - Patient is noted to have multiple allergies including allergies to cephalosporins and quinolones - Zosyn started 05/18 - Consult infectious diseases for guidance on antibiotics. Acute Kidney Injury - Cr. at baseline - Likely secondary to combination of urinary tract infection as well as dehydration - D/C fluids - Repeat BMP with morning labs Fall with hip pain - Likely secondary to UTI and dehydration - Pain to right hip initially but this is now improved: Tylenol as needed and we can escalate accordingly if not controlled - No acute fractures noted on imaging - OT/PT evaluations Anemia - H&H dropped to 7.1 & 20.8 - CT pelvis as patient has large area of ecchymosis around right hip - FOBT - repeat H&H Hypokalemia - repleated Hypothyroidism - Continue Levothyroxine DVT prophylaxis - hold heparin for repeat H&H in the morning, SCDs Resuscitation status - full resuscitation
--- NOTE | 2017-05-20 12:25 | Clinical Documentation Query ---
GEOVANNA Gomez CLINICAL DOCUMENTATION QUERIES QUERY 1 OF 2 Please Document Present on Admission Status for - Enterocolitis due to Clostridium difficile (x ) C.Difficile infection, POA ( ) C. Difficile infection, not POA QUERY 2 OF 2 Admission H&H was 10.7 g/dl and 32.9%. This a.m. repeat values were 7.1 g/dl and 20.8%. Monitored with serial hematology, CT scan of the pelvis, and FOCB. Notably, I/O positive for > 5 liters and compensatory mechanisms are absent. As appropriate, consider clarification as suggested below. Thank you. In your clinical opinion is this patient being managed for: ( ) Hemodilutional anemia ( x) Not Agree Likely from hematoma, checking CT pelvis ( ) Other explanation of clinical findings (Please Explain) ( ) Unable to determine (Please Define) ( ) Need to Discuss The medical record reflects the following clinical findings, treatment, and risk factors. Clinical Indicators: As above Treatment: Monitored with serial hematology, CT scan of the pelvis, and FOCB Risk Factors: IVF administration Please clarify and document your clinical opinion in the progress notes and discharge summary. Terms such as "probable", "suspected", "likely", "questionable", "possible", or "still to be ruled out" are acceptable. IF IN AGREEMENT, YOU MUST DOCUMENT ABOVE DIAGNOSTIC STATEMENT IN DAILY PROGRESS NOTES AND DISCHARGE SUMMARY. This document is not part of the patient's record. Thank You, Blair Nicole, MITRA [phone]
--- NOTE | 2017-05-20 12:32 | DIAGNOSTIC IMAGING REPORT ---
CT SCAN OF THE BONY PELVIS WITHOUT IV CONTRAST CLINICAL HISTORY: Fall with right hip pain. COMPARISON STUDY: Pelvic radiograph dated 05/18/2017. TECHNIQUE: CT scan of the bony pelvis is performed from the pelvic inlet to the proximal femora. Images are reviewed in the axial, sagittal, and coronal planes. IV contrast was not administered for this examination. A dose lowering technique was utilized adhering to the principles of ALARA. CT DOSE: 730.60 mGy.cm FINDINGS: The skeletal structures are osteopenic. There is no evidence of fracture involving the hips or bony pelvis. The proximal femora are maintained. There is no evidence of osteonecrosis. Mild arthritic change is seen in the hips. Sclerotic change is present in the sacroiliac joints and pubic symphysis. Lumbosacral spondylosis is observed. Gas is present within the bladder lumen. The bladder is otherwise normal as visualized. The uterus is surgically absent. No adnexal lesion is seen. There is no pelvic sidewall or inguinal lymphadenopathy. Findings suggest pelvic floor prolapse. The visualized small bowel and colon are normal in caliber. There is moderate diverticulosis of the sigmoid colon without CT evidence of acute diverticulitis. There is generalized atrophy of the pelvic musculature. There is a subcutaneous soft tissue hematoma seen in the right pregluteal soft tissues which measures approximately 16 x 3.5 x 8.5 cm. No intramuscular hematoma is seen. Subcutaneous soft tissue edema overlies the right hip. A fat-containing ventral hernia is seen in the abdomen. There is evidence of previous ventral hernia repair. A cystic structure in the left retropharyngeal space likely represents an exophytic cyst arising from the left kidney. This is incompletely assessed. IMPRESSION: 1. Subcutaneous soft tissue edema overlies the right hip. There is no evidence of fracture seen in the hips or bony pelvis. 2. There is a large hematoma identified in the right pregluteal soft tissues which measures approximately 16 x 3.5 x 8.5 cm. 3. There is gas in the bladder lumen, likely related to instrumentation. Correlation with clinical findings and urinalysis will be required. 4. Osteopenia and degenerative change as above. 5. Additional findings as above. Electronically signed by: Justin Flores M.D. 05/20/2017 12:31 PM Dictated Date/Time: 05/20/2017 12:23 PM
[2017-05-20 13:07] LABS: O&P GIARDIA AG NOT DETECTED (NOT DETECTED)
[2017-05-20 13:56] LABS: HEMATOCRIT 23.9 % (37-47)
[2017-05-20] MEDS ORDERED: PIPERACILL/TAZOBAC CONSULT ACTIVE PRN (15:15)
[2017-05-20 16:01] VITALS: BP 163/73; PULSE 60; TEMP 36.7; O2SAT 99
--- NOTE | 2017-05-20 17:27 | Infectious Disease Progress Nt ---
Progress Note Date of Service May 20, 2017. Subjective Pt evaluation today including: conversation w/ patient, physical exam, chart review, lab review, review of studies, conversation w/ project management consultant, review of inpatient medication list Patient feeling better today. Remains afebrile. Diarrhea last. Still with pain in her right hip but improving. No other new complaints. All Other Systems: Reviewed and Negative Medications Current Inpatient Medications Medications (Trade) Dose Ordered Sig/Ace Route Start Time Stop Time Status Last Admin Dose Admin Heparin Sodium (Porcine) (Heparin Sq 5000 Unit/0.5ml) 5,000 unit Q8H SQ 05/19/17 08:00 06/18/17 07:59 Future Hold Acetaminophen (Tylenol Tab) 650 mg Q4H PRN PO 05/18/17 21:00 06/17/17 20:59 Al Hydrox/Mg Hydrox/Simethicone (Maalox Max Susp) 15 ml Q4H PRN PO 05/18/17 21:00 06/17/17 20:59 Magnesium Hydroxide (Milk Of Magnesia Susp) 30 ml Q6H PRN PO 05/18/17 21:00 06/17/17 20:59 Polyethylene (Miralax Powder Packet) 17 gm DAILY PRN PO 05/18/17 21:00 06/17/17 20:59 Ondansetron HCl (Zofran Inj) 4 mg Q6H PRN IV 05/18/17 21:00 06/17/17 20:59 Albuterol (Ventolin Hfa Inhaler) 2 puffs QID PRN INH 05/18/17 21:00 06/17/17 20:59 05/20/17 16:09 2 PUFFS Amlodipine Besylate (Norvasc Tab) 10 mg DAILY PO 05/19/17 08:00 06/18/17 08:59 05/20/17 09:37 10 MG Atorvastatin Calcium (Lipitor Tab) 20 mg DAILY PO 05/19/17 08:00 06/18/17 08:59 05/20/17 09:38 20 MG Clopidogrel Bisulfate (plAVix TAB) 75 mg DAILY PO 05/19/17 08:00 06/18/17 08:59 Future Hold 05/19/17 09:10 75 MG Fluoxetine HCl (Prozac Cap) 20 mg DAILY PO 05/19/17 08:00 06/18/17 08:59 05/20/17 09:39 20 MG Lisinopril (Zestril Tab) 40 mg DAILY PO 05/19/17 08:00 06/18/17 08:59 05/20/17 09:39 40 MG Multivitamins/ Minerals (Multivitamin W/ Minerals Tab) 1 tab DAILY PO 05/19/17 08:00 06/18/17 08:59 05/20/17 09:39 1 TAB Calcium Carbonate (oS-Jamison 500 TAB) 1,250 mg BID PO 05/18/17 21:00 06/17/17 20:59 05/20/17 09:40 1,250 MG Cholecalciferol (Vitamin D Tab) 2,000 inter.unit DAILY PO 05/19/17 08:00 06/18/17 08:59 05/20/17 09:39 2,000 INTER.UNIT Metoprolol Succinate (Toprol Xl Tab) 100 mg DAILY PO 05/19/17 08:00 06/18/17 08:59 05/20/17 09:38 100 MG Fish Oil ([place]-3 (Purified Fish Oil) Cap) 2 gm DAILY PO 05/19/17 08:00 06/18/17 08:59 Future Hold 05/20/17 09:40 2 GM Pantoprazole Sodium (Protonix Tab) 40 mg DAILY PO 05/19/17 08:00 06/18/17 08:59 05/20/17 09:38 40 MG Piperacillin Sod/ Tazobactam Sod 3.375 gm/Dextrose 115 ml @ 28.75 mls/ hr Q8H IV 05/19/17 04:00 05/24/17 03:59 05/20/17 13:17 28.75 MLS/HR Miscellaneous (Iv Fluids Completed) 1 ea PRN PRN N/A 05/18/17 21:45 05/18/18 21:44 Albuterol/ Ipratropium (Duoneb) 3 ml PRN PRN INH 05/18/17 21:45 06/17/17 21:44 Vancomycin HCl (Vancomycin Oral Soln) 125 mg QID PO 05/19/17 09:00 05/29/17 08:59 05/20/17 16:08 125 MG Raspberry (Raspberry Syrup 5ml Cup) 5 ml QID PO 05/19/17 09:00 06/02/17 08:59 05/20/17 16:08 5 ML Levothyroxine Sodium (Synthroid Tab) 25 mcg DAILYBB PO 05/20/17 06:30 06/19/17 06:29 05/20/17 06:23 25 MCG Cholestyramine Resin (Questran Powder Light) 4 gm BID@10,22 PO 05/20/17 22:00 06/19/17 21:59 Piperacillin Sod/ Tazobactam Sod (Consult) 1 ea UD PRN N/A 05/20/17 15:15 06/19/17 15:14 Objective Vital Signs Date Time Temp Pulse Resp B/P (MAP) Pulse Ox O2 Delivery O2 Flow Rate FiO2 05/20/17 16:01 36.7 60 18 163/73 (103) 99 05/20/17 16:00 Room Air 05/20/17 08:00 Room Air 05/20/17 07:49 36.5 67 16 148/71 (96) 95 05/20/17 01:34 67 146/73 (97) 05/20/17 01:10 36.9 69 18 169/69 (102) 98 05/19/17 23:56 Room Air Physical Exam General Appearance: WD/WN, no apparent distress Eyes: normal inspection, EOMI, sclerae normal ENT: normal ENT inspection, pharynx normal Neck: supple, no adenopathy, trachea midline Respiratory/Chest: chest non-tender, lungs clear, normal breath sounds, no respiratory distress Cardiovascular: regular rate, rhythm, no gallop, no murmur Abdomen: normal bowel sounds, non tender, soft, no organomegaly ( He a) Extremities: non-tender, no calf tenderness Neurologic/Psychiatric: alert, oriented x 3 Skin: normal color, no rash Lymphatic: no adenopathy Laboratory Results Date/Time Source Procedure Growth Status 05/20/17 16:37 Urine , Clean Catch Urine Culture Pending Received Last 24 Hours Test 05/20/17 07:30 05/20/17 13:39 White Blood Count 6.21 K/uL Red Blood Count 2.40 M/uL Hemoglobin 7.1 g/dL 8.0 g/dL Hematocrit 20.8 % 23.9 % Mean Corpuscular Volume 86.7 fL Mean Corpuscular Hemoglobin 29.6 pg Mean Corpuscular Hemoglobin Concent 34.1 g/dl Platelet Count 162 K/uL Mean Platelet Volume 8.7 fL Neutrophils (%) (Auto) 66.1 % Lymphocytes (%) (Auto) 17.1 % Monocytes (%) (Auto) 10.0 % Eosinophils (%) (Auto) 5.3 % Basophils (%) (Auto) 1.0 % Neutrophils # (Auto) 4.11 K/uL Lymphocytes # (Auto) 1.06 K/uL Monocytes # (Auto) 0.62 K/uL Eosinophils # (Auto) 0.33 K/uL Basophils # (Auto) 0.06 K/uL RDW Standard Deviation 45.6 fL RDW Coefficient of Variation 14.2 % Immature Granulocyte % (Auto) 0.5 % Immature Granulocyte # (Auto) 0.03 K/uL Hypersegmented Polys 1+ Toxic Granulation 1+ Toxic Vacuolation 1+ Hypochromasia PRESENT Sodium Level 144 mmol/L Potassium Level 3.7 mmol/L Chloride Level 111 mmol/L Carbon Dioxide Level 24 mmol/L Anion Gap 9.0 mmol/L Blood Urea Nitrogen 26 mg/dl Creatinine 1.10 mg/dl Est Creatinine Clear Calc Drug Dose 35.1 ml/min Estimated GFR () 53.0 Estimated GFR (Non- 45.7 BUN/Creatinine Ratio 23.5 Random Glucose 89 mg/dl Calcium Level 8.8 mg/dl Patient Name: TOMASA AU Unit Number: [id number] Dictated: 05/20/171222 Transcribed: 05/20/171222 EV Printed Date/Time: [~ rep prt dt]/[~ rep prt tm] [~ rep ct labl] - [~ rep ct ivnm] [facility] [place] [address] Dictated: 05/20/171222 Transcribed: 05/20/171222 EV Printed Date/Time: [~ rep prt dt]/[~ rep prt tm] [~ rep ct labl] - [~ rep ct ivnm] CONTRAST CLINICAL HISTORY: Fall with right hip pain. COMPARISON STUDY: Pelvic radiograph dated 05/18/2017. TECHNIQUE: CT scan of the bony pelvis is performed from the pelvic inlet to the proximal femora. Images are reviewed in the axial, sagittal, and coronal planes. IV contrast was not administered for this examination. A dose lowering technique was utilized adhering to the principles of ALARA. CT DOSE: 730.60 mGy.cm FINDINGS: The skeletal structures are osteopenic. There is no evidence of fracture involving the hips or bony pelvis. The proximal femora are maintained. There is no evidence of osteonecrosis. Mild arthritic change is seen in the hips. Sclerotic change is present in the sacroiliac joints and pubic symphysis. Lumbosacral spondylosis is observed. Gas is present within the bladder lumen. The bladder is otherwise normal as visualized. The uterus is surgically absent. No adnexal lesion is seen. There is no pelvic sidewall or inguinal lymphadenopathy. Findings suggest pelvic floor prolapse. The visualized small bowel and colon are normal in caliber. There is moderate diverticulosis of the sigmoid colon without CT evidence of acute diverticulitis. There is generalized atrophy of the pelvic musculature. There is a subcutaneous soft tissue hematoma seen in the right pregluteal soft tissues which measures approximately 16 x 3.5 x 8.5 cm. No intramuscular hematoma is seen. Subcutaneous soft tissue edema overlies the right hip. A fat-containing ventral hernia is seen in the abdomen. There is evidence of previous ventral hernia repair. A cystic structure in the left retropharyngeal space likely represents an exophytic cyst arising from the left kidney. This is incompletely assessed. IMPRESSION: 1. Subcutaneous soft tissue edema overlies the right hip. There is no evidence of fracture seen in the hips or bony pelvis. 2. There is a large hematoma identified in the right pregluteal soft tissues which measures approximately 16 x 3.5 x 8.5 cm. 3. There is gas in the bladder lumen, likely related to instrumentation. Correlation with clinical findings and urinalysis will be required. 4. Osteopenia and degenerative change as above. 5. Additional findings as above. Electronically signed by: Justin Flores M.D. 05/20/2017 12:31 PM Dictated Date/Time: 05/20/2017 12:23 PM The status of this report is Signed. Draft = Not yet reviewed or approved by Radiologist. Signed = Reviewed and approved by Radiologist. <AttendingPhy>Enmanuel Loomis D.O.</AttendingPhy> <FamilyPhy>Agustin Cornejo M.D.</FamilyPhy> <PrimaryPhy>Agustin Cornejo M.D.</PrimaryPhy> <UnitNumber> [id number]</UnitNumber> <VisitNumber>[id number]</VisitNumber> <PatientName> TOMASA AU</PatientName> <DateOfBirth>1930</DateOfBirth> <Location> 4W</Location> <ServiceDate>05/18/17</ServiceDate> <MNE>ESINDI</MNE> < OrderingPhy>Jessica Garcia</OrderingPhy> <OrderingPhyMNE>f rep ord dr ulloa< /OrderingPhyMNE> <DictatingPhyMNE>f rep dict dr ulloa</DictatingPhyMNE> <CCListMNE >f rep ct mne</CCListMNE> <AdmittingPhyMNE>f pt admit dr ulloa</AdmittingPhyMNE> < AttendingPhyMNE>f pt attend dr ulloa</AttendingPhyMNE> <ConsultingPhyMNE>f pt consult dr ulloa</ConsultingPhyMNE> <FamilyPhyMNE>f pt fam dr ulloa</FamilyPhyMNE> <OtherPhyMNE>f pt other dr ulloa</OtherPhyMNE> < PrimaryPhyMNE>f pt prim care dr ulloa</PrimaryPhyMNE> <ReferringPhyMNE>f pt referring dr ulloa</ReferringPhyMNE> Assessment and Plan 86-year-old female with C difficile colitis, not clear whether has recurrent urinary tract infection as well. Patient to continue on present antibiotic therapy and will follow clinical response. Will follow.
[2017-05-20 23:10] VITALS: BP 132/73; PULSE 60; TEMP 36.7; O2SAT 100
[2017-05-20] MEDS: CHOLESTYRAMINE LIGHT 4 GM PKT PO SCH (23:20)
[2017-05-21] MEDS: PIPERACILL/TAZOBAC IV 3.375 GM in DEXTROSE 5% 100ML 100 ML IV SCH ×2 (04:55→12:00)
[2017-05-21] MEDS: LEVOTHYROXINE 25 MCG TAB PO SCH ×2 (05:52→06:41)
[2017-05-21 08:06] LABS: BUN/CREATININE RATIO 18.8 (10-20); CALCIUM 8.8 mg/dl (8.5-10.1); CREATININE 0.92 mg/dl (0.60-1.20); POTASSIUM 3.3 mmol/L (3.5-5.1)
[2017-05-21 08:09] VITALS: BP 157/66; PULSE 63; TEMP 36.6; O2SAT 97
[2017-05-21] MEDS: CALCIUM CARBONATE 1250MG TAB PO SCH (09:43)
[2017-05-21] MEDS: CEROVITE ADV FORMULA TAB PO SCH (09:43)
[2017-05-21] MEDS: METOPROLOL SUCC 50MG EXT REL TAB PO SCH (09:43)
[2017-05-21] MEDS: AMLODIPINE BESYLATE 5 MG TAB PO SCH (09:44)
[2017-05-21] MEDS: CHOLECALCIFEROL 1000 INTER.UNIT TAB PO SCH (09:44)
[2017-05-21] MEDS: PANTOprazole SOD 40 MG TAB PO SCH (09:45)
[2017-05-21] MEDS: FLUOXETINE HCL 20 MG CAP PO SCH (09:45)
[2017-05-21] MEDS: ATORVASTATIN 20 MG TAB PO SCH (09:45)
[2017-05-21] MEDS: LISINOPRIL 40 MG TAB PO SCH (09:46)
[2017-05-21] MEDS: RASPBERRY SYRUP 5 ML UDP PO SCH ×3 (09:47→16:47)
[2017-05-21] MEDS: VANCOMYCIN HCL 125 MG/2.5ML SOLN PO SCH ×3 (09:58→16:47)
[2017-05-21] MEDS: CHOLESTYRAMINE LIGHT 4 GM PKT PO SCH (10:00)
[2017-05-21 10:44] LABS: HEMATOCRIT 21.5 % (37-47)
[2017-05-21] MEDS ORDERED: VANC5CAP PO ×2 (15:09)
--- NOTE | 2017-05-21 15:14 | Discharge Instructions ---
Discharge Instructions Date of Service May 21, 2017. Admission Reason for Admission: Brant, Uti Discharge Discharge Diagnosis / Problem: BRANT, C diff colitis Discharge Goals Goal(s): Improve function, Improve disease control Activity Recommendations Activity Limitations: resume your previous activity . Instructions / Follow-Up Instructions / Follow-Up Medications - VANCOMYCIN: 125mg four times a day for 12 more days - PLAVIX: continue to hold until 05/25, can take that morning - QUESTRAN: take twice a day while you still have loose stools, if you have solid stools, stop the Questran C diff: continue to treat with Vancomycin, good hand hygiene with soap and water Acute kidney injury: resolved with IV fluids, this was due to dehydration Questionable UTI: was treated with Zosyn, no growth on culture, Dr. Espinosa with infectious disease recommends no antibiotics FOLLOW UP - Dr. Cornejo in one week, call to make appointment Current Hospital Diet Patient's current hospital diet: AHA Diet (Heart Healthy) Discharge Diet Recommended Diet: AHA Diet (Heart Healthy) Pending Studies Studies pending at discharge: no Medical Emergencies . Who to Call and When: Medical Emergencies: If at any time you feel your situation is an emergency, please call 911 immediately. . Non-Emergent Contact Non-Emergency issues call your: Primary Care Provider Call Non-Emergent contact if: you have any medication questions . . "Provider Documentation" section prepared by Enmanuel Loomis. . VTE Core Measure Inpt VTE Proph given/why not?: Unfractionated heparin SQ [place] Drug Monitoring Program Search Results: no issues identified
[2017-05-21] MEDS ORDERED: QSTP PO ×2 (15:15)
[2017-05-21 15:43] LABS: HEMATOCRIT 23.3 % (37-47)
[2017-05-21 15:55] VITALS: BP 162/73; PULSE 64; TEMP 36.4; O2SAT 100
[2017-05-21 16:21] VITALS: BP 162/73; PULSE 64; TEMP 36.4; O2SAT 100
--- NOTE | 2017-05-22 21:33 | Discharge Summary ---
Discharge Summary Date of Service May 21, 2017. Discharge Summary Admission Date: May 19, 2017 at 09:36 Discharge Date: May 21, 2017 Discharge Disposition: Home Principal Diagnosis: ROXANNA Problems/Secondary Diagnoses: C diff colitis suspected UTI Acute blood loss anemia from hematoma Immunizations: Have You Had Influenza Vaccine: No History of Tetanus Vaccine?: Yes History of Pneumococcal: Yes History of Hepatitis B Vaccine: No Procedures: none Consultations: Infectious disease Medication Reconciliation New Medications: Vancomycin Hcl (Vancomycin) 125 Mg Cap 125 MG PO QID for 12 Days, #48 CAP 0 Refills Cholestyramine (Cholestyramine Light) 4 Gm Pack 4 GM PO BID@10,22 PRN for Diarrhea, #1 BTL 0 Refills Continued Medications: Albuterol Hfa (Ventolin Hfa) 200 Puffs/12366 Mcg Aers 1-2 PUFFS INH QID PRN for SOB/Wheezing, INHALER Amlodipine Besylate (Norvasc) 10 Mg Tab 10 MG PO DAILY, TAB Atorvastatin (Lipitor) 20 Mg Tab 20 MG PO DAILY, TAB Calcium (Elite Calcium) 150 Mg Tab 2 TAB PO BID Cholecalciferol (Vitamin D3) 2,000 Unit Tab 1 TAB PO DAILY, TAB Fluoxetine (Prozac) 10 Mg Cap 10 MG PO UD, CAP Fluoxetine (Prozac) 20 Mg Cap 20 MG PO DAILY, CAP Fluticasone Furoate-Vilanterol (Breo Ellipta) 1 Inh Inh 1 PUFF INH DAILY Levothyroxine Sodium (Levothyroxine Sodium) 25 Mcg Tab 1 TAB PO DAILY, TAB Lisinopril (Zestril) 40 Mg Tab 40 MG PO DAILY, TAB Metoprolol Succinate (Metoprolol Succinate ER) 100 Mg Tabcr 1 TAB PO DAILY Multivitamins/Minerals (Mvi With Minerals) Tab 1 TAB PO DAILY, TAB [place]-3 Fatty Acids (Fish Oil 500 mg) 1 Cap Cap 2 CAP PO DAILY Omeprazole (Prilosec) 20 Mg Capcr 20 MG PO DAILY, CAP Triamterene/Hctz (Dyazide 37.5MG/25MG) Cap 1 TAB PO DAILY, CAP Discontinued Medications: Clopidogrel (Plavix) 75 Mg Tab 75 MG PO DAILY, TAB Discharge Exam Patient feeling well on day of discharge, asking to go home. Two BM, more solid. Hb was 7.1 in the AM, repeated in the afternoon, up to 7.7. Cr was normal, urinating well Discussed with Dr. Espinosa, recommended no antibiotics for suspected UTI since there was no growth. Discussed discharge plans at length with patient. Review of Systems: Constitutional: + weakness, No fever, No chills, No sweats, No weight loss, No fatigue, No problem reported Eyes: No worsening of vision, No eye pain, No redness, No discharge, No diplopia, No problem reported ENT: No hearing loss, No unusual epistaxis, No nasal symptoms, No sore throat, No tinnitus, No dental problems, No trouble swallowing, No problem reported Respiratory: No cough, No sputum, No wheezing, No shortness of breath, No dyspnea on exertion, No dyspnea at rest, No hemoptysis, No problem reported Cardiovascular: No chest pain, No orthopnea, No PND, No edema, No claudication, No palpitations, No problem reported Abdomen: + diarrhea (stools becoming more formed), No pain, No nausea, No vomiting, No constipation, No GI bleeding, No problem reported Musculoskeletal: No joint pain, No muscle pain, No swelling, No calf pain, No problem reported Genitourinary - Female: No dysuria, No urinary frequency, No urinary urgency , No urinary incontinence, No urinary retention, No hematuria Neurologic: No memory loss, No paralysis, No weakness, No numbness/tingling , No vertigo, No balance problems, No problem reported Psychiatric: No depression symptoms, No anhedonism, No anxiety, No insomnia , No substance abuse, No problem reported Endocrine: No fatigue, No excessive thirst, No excessive urination, No problem reported Hematologic / Lymphatic: No abnormal bleeding/bruising, No clotting problems , No swollen lymph nodes, No night sweats, No problem reported Integumentary: + problem reported (large bruise/hematoma on right buttock/ posterior thigh) Physical Exam: General Appearance: WD/WN, no apparent distress Eyes: normal inspection, EOMI, sclerae normal ENT: normal ENT inspection, hearing grossly normal, pharynx normal Neck: supple, no adenopathy, no JVD, trachea midline Respiratory/Chest: chest non-tender, lungs clear, normal breath sounds, no respiratory distress, no accessory muscle use Cardiovascular: regular rate, rhythm, no edema, no gallop, no JVD, no murmur , normal peripheral pulses Abdomen / GI: normal bowel sounds, non tender, soft, no organomegaly Extremities: normal inspection, no calf tenderness, normal capillary refill , no pedal edema, normal range of motion, pelvis stable Neurologic/Psychiatric: senior controls analyst II-XII nml as tested, no motor/sensory deficits , alert, normal mood/affect, normal reflexes, oriented x 3 Skin: + pertinent finding (right buttock/posterior thigh bruise, tender to palpation, same size as day before) Hospital Course - ROXANNA: due to dehydration, poor intake, diarrhea, UTI resolved, stopped IV fluids on 05/20, eating and drinking well Cr was 0.9 on day of discharge - C diff colitis: oral Vancomycin 125mg QID x 14 days total, provided with script for 12 more days add Questran for symptom control stools already starting to become more formed - suspected UTI: multiple organisms on culture, treated with Zosyn during admission ID consulted due to allergies, recommended against further treatment since culture was essentially negative no dysuria - Acute blood loss anemia from hematoma: due to fall held Plavix and heparin during admission Hb down to 7.1 and then up to 8.0 on 05/20 Hb on 05/21 was 7.2 in the AM and then 7.7 in the afternoon, cleared for discharge follow up with PCP this week and repeat Hb hold Plavix until 05/25 Total Time Spent: Greater than 30 minutes This includes examination of the patient, discharge planning, medication reconciliation, and communication with other providers. Discharge Instructions Please refer to the electronic Patient Visit Report (Discharge Instructions) for additional information. Follow-Up Dr. Cornejo in 5-7 days Additional Copies To Agustin Cornejo M.D.
== END 2017-05-21 19:05 | disposition home or self-care (01) | DRG 372 ==
LOC: EDBD 16:30 → C.EDA 16:31 → C.MS4W 21:12 → ENRESERV 21:30 → OBSVTOIN 05-19 09:36
PROVIDERS: ADMIT Student in an Organized Health Care Education/Training Program; ATTEND Internal Medicine
DX: A04.72 Enterocolitis due to Clostridium difficile, not specified as recurrent (principal); N17.9 Acute kidney failure, unspecified; N39.0 Urinary tract infection, site not specified; S70.01XA Contusion of right hip, initial encounter; I69.854 Hemiplegia and hemiparesis following other cerebrovascular disease affecting left non-dominant side; D62 Acute posthemorrhagic anemia; E87.6 Hypokalemia; I10 Essential (primary) hypertension; J45.909 Unspecified asthma, uncomplicated; E86.0 Dehydration; E78.5 Hyperlipidemia, unspecified; W18.30XA Fall on same level, unspecified, initial encounter; Y92.019 Unspecified place in single-family (private) house as the place of occurrence of the external cause

== ENCOUNTER → 2017-05-24 | Outpatient (CLI) | payer OTHER ==
[~2017-05-24] MED LIST changes: +AMLO10TA4 PO; +ATOR-22 PO; +CHOL20007 PO; +FLUO10CA48 PO; +MULT-513 PO; +OMEG-132 PO; +PRLSR20 PO; +QSTP PO; +TPRSR/100 PO; +TRIA37.5 PO; +VANC5CAP PO; +VNTHFA/IN INH; +[UNRECOGNIZED DRUG - CODE] PO
[2017-05-24 12:51] LABS: HEMATOCRIT 25.8 % (37-47); MEAN CORPUSCULAR HGB CONC 33.7 g/dl (32-36); MEAN PLATELET VOLUME 8.7 fL (7.4-10.4); PLATELET COUNT 297 K/uL (130-400); WHITE BLOOD COUNT 10.85 K/uL (4.8-10.8)
[2017-05-24 13:57] LABS: BLOOD UREA NITROGEN 26 mg/dl (7-18); BUN/CREATININE RATIO 23.5 (10-20); CALCIUM 9.2 mg/dl (8.5-10.1); CARBON DIOXIDE 27 mmol/L (21-32); CHLORIDE 103 mmol/L (98-107); GLUCOSE 96 mg/dl (70-99); POTASSIUM 3.3 mmol/L (3.5-5.1); SODIUM 138 mmol/L (136-145)
[2017-05-24 18:00] LABS: URINE APPEARANCE TURBID (CLEAR); URINE BILIRUBIN NEG (NEG); URINE COLOR YELLOW; URINE EPITHELIAL CELL AUTO >30 /lpf (0-5); URINE NITRITE NEG (NEG); URINE SPECIFIC GRAVITY 1.015 (1.000-1.030); UROBILINOGEN NEG (NEG)
[2017-05-24 18:07] LABS: MANUAL MICROSCOPIC REQUIRED? NO; REVIEW REQ? YES
== END | disposition home or self-care (01) ==
LOC: C.LABPVFM 13:27
PROVIDERS: ATTEND Family Medicine
DX: R53.83 Other fatigue (principal); R35.1 Nocturia; D64.9 Anemia, unspecified; N28.9 Disorder of kidney and ureter, unspecified

== ENCOUNTER → 2017-11-29 | Outpatient (CLI) | payer OTHER ==
[~2017-11-29] VITALS: Ht 157.5 cm; Wt 72.4 kg
[~2017-11-29] MED LIST changes: -ALBU1AER9 INH; -AMLO-114 PO; -CALCIUM 150 MG PO; -CHOL100010 PO; -CLOP1TAB15 PO; -DYZ PO; -METO1TAB69 PO; -MULT-506 PO; -SIMV40TA2 PO; -TMF75 PO
[2017-11-29 13:05] VITALS: BP 149/70; PULSE 65; Ht 157.5 cm; Wt 72.4 kg
== END | disposition home or self-care (01) ==
LOC: C.NEUR 12:35
PROVIDERS: ATTEND Internal Medicine Pulmonary Disease
DX: G47.33 Obstructive sleep apnea (adult) (pediatric) (principal); J45.909 Unspecified asthma, uncomplicated; I10 Essential (primary) hypertension; I25.10 Atherosclerotic heart disease of native coronary artery without angina pectoris; F32.9 Major depressive disorder, single episode, unspecified; E78.5 Hyperlipidemia, unspecified; E03.9 Hypothyroidism, unspecified; Z87.442 Personal history of urinary calculi; Z98.49 Cataract extraction status, unspecified eye; Z82.49 Family history of ischemic heart disease and other diseases of the circulatory system; Z83.6 Family history of other diseases of the respiratory system

== ENCOUNTER 2017-12-22 21:13 | Observation (INO) | payer OTHER ==
[~2017-12-22] VITALS: Ht 157.5 cm; Wt 73.1 kg
[2017-12-22] MEDS ORDERED: POTA1CAP2 PO (21:40)
[2017-12-22] MEDS ORDERED: CLOP1TAB5 PO (21:40)
[2017-12-22] MEDS ORDERED: LACTCAP3 PO (21:40)
[2017-12-22] MEDS ORDERED: SODIUM CHLORIDE 0.9% 250ML 250 ML IV STA (22:03)
[2017-12-22] MEDS ORDERED: SODIUM CHLORIDE 0.9% 1000ML 1,000 ML IV STA (22:03)
--- NOTE | 2017-12-22 22:07 | EMERGENCY ROOM VISIT NOTE ---
History Report prepared by Henok: Cyndi Stone Under the Supervision of: Dr. Leidy Morales M.D. First contact with patient: 21:51 Chief Complaint: VOMITING Stated Complaint: NAUSEA, VOMITING, DIARRHEA Nursing Triage Summary: patient with sudden onset of N/V/D around 1900. upon arrival patient only complaint "I feel worn out" History of Present Illness The patient is a 87 year old female who presents to the Emergency Room with complaints of sudden vomiting beginning at 1930 tonight. The patient states that she was just sitting and began to get hot and then started to vomit. She also reports having diarrhea too. The patient denies being sick recently and states that otherwise she had a normal day. Per family, the patient has a history of a stroke, hypertension, asthma, C. diff, and a cholecystectomy. She denies having any pain currently and states that she did not have pain while she was throwing up. The patient denies having chest pain and shortness of breath. Source of History: patient, family Onset: 0 tonight Position: other (generalized ) Quality: other (vomiting ) Timing: other (sudden ) Associated Symptoms: + nausea, + diarrhea, No chest pain, No SOB Review of Systems See HPI for pertinent positives & negatives. A total of 10 systems reviewed and were otherwise negative. Past Medical & Surgical Medical Problems: (1) ROXANNA (acute kidney injury) (2) ROXANNA (acute kidney injury) (3) Asthma (4) HTN (hypertension) (5) Influenza (6) Urinary tract infection (7) UTI (urinary tract infection) Family History No pertinent family history Social History Smoking Status: Never Smoker Alcohol Use: none Drug Use: none Marital Status: Housing Status: lives with significant other Occupation Status: retired Current/Historical Medications Scheduled Amlodipine Besylate (Norvasc), 10 MG PO DAILY Atorvastatin (Lipitor), 20 MG PO DAILY Calcium (Elite Calcium), 2 TAB PO BID Cholecalciferol (Vitamin D3), 1 TAB PO DAILY Clopidogrel Bisulfate (Plavix), 75 MG PO DAILY Fluoxetine (Prozac), 10 MG PO UD Fluoxetine (Prozac), 20 MG PO DAILY Fluticasone Furoate-Vilanterol (Breo Ellipta), 1 PUFF INH DAILY Lactobacillus (Acidophilus), 1 CAP PO QAM Levothyroxine Sodium (Levothyroxine Sodium), 1 TAB PO DAILY Lisinopril (Zestril), 40 MG PO DAILY Metoprolol Succinate (Metoprolol Succinate ER), 1 TAB PO DAILY Multivitamins/Minerals (Mvi With Minerals), 1 TAB PO DAILY [place]-3 Fatty Acids (Fish Oil 500 mg), 2 CAP PO DAILY Omeprazole (Prilosec), 20 MG PO DAILY Potassium Chloride (Potassium Chloride Er), 1 CAP PO DAILY Triamterene/Hctz (Dyazide 37.5MG/25MG), 1 TAB PO DAILY Scheduled PRN Albuterol Hfa (Ventolin Hfa), 1-2 PUFFS INH QID PRN for SOB/Wheezing Allergies Coded Allergies: Cefuroxime (Verified Allergy, Unknown, Unknown, 12/22/17) Ciprofloxacin (Verified Allergy, Unknown, Unknown, 12/22/17) Codeine (Verified Allergy, Unknown, 12/22/17) Meperidine (Verified Allergy, Unknown, 12/22/17) Oxycodone (Verified Allergy, Unknown, RASH, 12/22/17) Propoxyphene (Verified Allergy, Unknown, 12/22/17) Sulfa Antibiotics (Verified Allergy, Unknown, ., 12/22/17) Sulfamethoxazole (Verified Allergy, Unknown, 12/22/17) Trimethoprim (Verified Allergy, Unknown, 12/22/17) Amphetamine (Unverified Adverse Reaction, Severe, ., 12/22/17) Dextroamphetamine (Unverified Adverse Reaction, Severe, ., 12/22/17) Hydrochlorothiazide (Verified Adverse Reaction, Unknown, GI DISTRESS, 12/22) Methyldopa (Verified Adverse Reaction, Unknown, GI DISTRESS, 12/22/17) Physical Exam Vital Signs Date Time Temp Pulse Resp B/P (MAP) Pulse Ox O2 Delivery O2 Flow Rate FiO2 12/22/17 23:17 68 18 157/76 97 Room Air 12/22/17 21:39 36.7 60 20 166/79 98 Room Air Physical Exam Vital signs reviewed. General: Elderly-appearing female, in no significant distress. HEENT: No scleral icterus, PERRLA, neck supple. Atraumatic. Dry MM Cardiovascular: Regular rate and rhythm, no extra sounds. Pulmonary: Clear to auscultation bilaterally, normal work of breathing. Abdomen: Soft, nontender, nondistended, positive bowel sounds. Musculoskeletal: Atraumatic, no peripheral edema. Neurologic: Patient awake alert and oriented x 3 Skin: Warm, dry, no rash Medical Decision & Procedures ER Provider Diagnostic Interpretation: Radiology results as stated below per my review and radiologist interpretation: ABDOMEN 2VIEW W/PA CHEST RTN HISTORY: 87 years-old Female vomiting acute vomiting COMPARISON: Chest radiograph 05/18/2017 TECHNIQUE: PA view the chest with left lateral decubitus and supine views of the abdomen FINDINGS: Cardiac silhouette is mildly enlarged. Atherosclerosis of the aorta. Mild right hemidiaphragmatic elevation with subsegmental bibasilar opacities suggesting atelectasis. No overt pulmonary edema. Suspected trace left pleural effusion. Degenerative changes of the shoulders and spine. No pneumoperitoneum or bowel obstruction. Multiple air-fluid levels are noted within bowel throughout the abdomen. No pneumatosis. Cholecystectomy clips are noted. Calcifications of the upper abdomen measuring up to 2.3 cm within the abdominal right upper quadrant. Degenerative changes of the pelvis and spine with dextroscoliosis. IMPRESSION: 1. Nonobstructive bowel gas pattern without pneumoperitoneum. 2. Multiple air-fluid levels within nondilated bowel of the central abdomen suggest ileus or enteritis. 3. Cardiomegaly without overt pulmonary edema. 4. Indeterminate 2.3 cm calcification of the abdominal right upper quadrant projects over the right renal shadow. The above report was generated using voice recognition software. It may contain grammatical, syntax or spelling errors. Electronically signed by: Shay Yousif M.D. 12/22/2017 11:11 PM Dictated Date/Time: 12/22/2017 11:09 PM Laboratory Results 12/22/17 21:31 Red Blood Count 4.71, Mean Corpuscular Volume 85.8, Mean Corpuscular Hemoglobin 29.9, Mean Corpuscular Hemoglobin Concent 34.9, Mean Platelet Volume 9.2, Neutrophils (%) (Auto) 87.0, Lymphocytes (%) (Auto) 5.5, Monocytes (%) (Auto) 4.6, Eosinophils (%) (Auto) 2.1, Basophils (%) (Auto) 0.3, Neutrophils # (Auto) 15.06, Lymphocytes # (Auto) 0.96, Monocytes # (Auto) 0.80, Eosinophils # (Auto) 0.37, Basophils # (Auto) 0.05 12/22/17 21:31 Test 12/22/17 21:31 12/22/17 23:15 White Blood Count 17.32 K/uL (4.8-10.8) Red Blood Count 4.71 M/uL (4.2-5.4) Hemoglobin 14.1 g/dL (12.0-16.0) Hematocrit 40.4 % (37-47) Mean Corpuscular Volume 85.8 fL (80-100) Mean Corpuscular Hemoglobin 29.9 pg (25-34) Mean Corpuscular Hemoglobin Concent 34.9 g/dl (32-36) Platelet Count 276 K/uL (130-400) Mean Platelet Volume 9.2 fL (7.4-10.4) Neutrophils (%) (Auto) 87.0 % Lymphocytes (%) (Auto) 5.5 % Monocytes (%) (Auto) 4.6 % Eosinophils (%) (Auto) 2.1 % Basophils (%) (Auto) 0.3 % Neutrophils # (Auto) 15.06 K/uL (1.4-6.5) Lymphocytes # (Auto) 0.96 K/uL (1.2-3.4) Monocytes # (Auto) 0.80 K/uL (0.11-0.59) Eosinophils # (Auto) 0.37 K/uL (0-0.5) Basophils # (Auto) 0.05 K/uL (0-0.2) RDW Standard Deviation 43.3 fL (36.4-46.3) RDW Coefficient of Variation 13.9 % (11.5-14.5) Immature Granulocyte % (Auto) 0.5 % Immature Granulocyte # (Auto) 0.08 K/uL (0.00-0.02) Anion Gap 12.0 mmol/L (3-11) Est Creatinine Clear Calc Drug Dose 26.1 ml/min Estimated GFR () 36.5 Estimated GFR (Non- 31.5 BUN/Creatinine Ratio 29.8 (10-20) Calcium Level 10.1 mg/dl (8.5-10.1) Magnesium Level 1.9 mg/dl (1.8-2.4) Total Bilirubin 0.5 mg/dl (0.2-1) Direct Bilirubin 0.1 mg/dl (0-0.2) Aspartate Amino Transf (AST/SGOT) 21 U/L (15-37) Alanine Aminotransferase (ALT/SGPT) 27 U/L (12-78) Alkaline Phosphatase 96 U/L (45-117) Troponin I < 0.015 ng/ml (0-0.045) Total Protein 9.0 gm/dl (6.4-8.2) Albumin 4.2 gm/dl (3.4-5.0) Lipase 220 U/L (73-393) Urine Color DK YELLOW Urine Appearance TURBID (CLEAR) Urine pH 5.0 (4.5-7.5) Urine Specific [place] 1.020 (1.000-1.030) Urine Protein TRACE (NEG) Urine Glucose (UA) NEG (NEG) Urine Ketones TRACE (NEG) Urine Occult Blood 1+ (NEG) Urine Nitrite NEG (NEG) Urine Bilirubin NEG (NEG) Urine Urobilinogen NEG (NEG) Urine Leukocyte Esterase LARGE (NEG) Urine WBC (Auto) >30 /hpf (0-5) Urine RBC (Auto) 0-4 /hpf (0-4) Urine Hyaline Casts (Auto) 1-5 /lpf (0-5) Urine Epithelial Cells (Auto) 0-5 /lpf (0-5) Urine Bacteria (Auto) 4+ (NEG) Urine Pathogenic Casts /lpf (0) Laboratory results per my review. Medications Administered Medications (Trade) Dose Ordered Sig/Ace Route Start Time Stop Time Status Last Admin Dose Admin Sodium Chloride 1,000 ml @ 150 mls/hr Q6H40M STAT IV 12/22/17 22:03 12/23/17 04:42 12/22/17 22:03 150 MLS/HR Sodium Chloride 250 ml @ 999 mls/hr Q16M STAT IV 12/22/17 22:03 12/22/17 22:18 DC 12/22/17 22:03 999 MLS/HR ECG Per My Interpretation Indication: vomiting Rate (beats per minute): 59 Rhythm: sinus bradycardia Findings: nonspecific-ST abn (Lateral), T-wave inversion (Anterior), no acute ischemic change, no ectopy ED Course 2201: Past medical records reviewed. The patient was evaluated in room C11B. A complete history and physical examination was performed. 2202: Ordered Sodium Chloride 250 ml @ 999 mls/hr IV, Sodium Chloride 1,000 ml @ 150 mls/hr IV. 2341: Ordered Zosyn Iv 3.375 gm IV. 2355: Upon reevaluation, the patient is resting comfortably. I discussed laboratory and radiographic results with her. She verbalized agreement of the treatment plan. The patient will be evaluated for further management and care. Medical Decision Differential diagnosis: Etiologies such as gastroenteritis, food borne illness, infections, appendicitis , diverticulitis, inflammatory bowel disease, obstruction, GI bleed, biliary pathology, as well as others were entertained. This patient was evaluated and appeared to be in no significant distress. IV access was obtained and laboratory work was drawn. Patient was placed on the quality assurance monitor final and found to be in a sinus bradycardia. EKG reveals T-wave inversions, nonspecific ST changes but no evidence of acute ischemia otherwise. Patient was given IV Zofran in route and has had no further vomiting. She is found to have a leukocytosis of 17,000, which could be reactive versus infectious. Patient has some acute kidney injury, likely secondary to dehydration. Review of old records indicates a recent urine culture approximately 6 months ago with a mixed resistance. Patient has multiple drug allergies. She was given Zosyn 3.375 g IV. The patient will be evaluated by the hospitalist service for further IV hydration, antibiotic administration pending urine culture and repeat laboratory work. Patient and family are aware of the plan and agree. Medication Reconcilliation Current Medication List: was personally reviewed by me Blood Pressure Screening Patient's blood pressure: Elevated blood pressure will be monitored by hospitalist Consults Time Called: 2324 Consulting Physician: Dr. Collins- [facility] Returned Call: [phone] I reviewed the patient's case with Dr. Collins who will evaluate the patient for further management. Impression Primary Impression: Vomiting and diarrhea Additional Impressions: UTI (urinary tract infection) Leukocytosis Scribe Attestation The scribe's documentation has been prepared under my direction and personally reviewed by me in its entirety. I confirm that the note above accurately reflects all work, treatment, procedures, and medical decision making performed by me. Departure Information Dispostion Being Evaluated By Hospitalist Referrals Agustin Cornejo M.D. (PCP) Patient Instructions My [facility] Problem Qualifiers
[2017-12-22 22:12] LABS: BASO % 0.3 %; BASO ABS # 0.05 K/uL (0-0.2); EOS % 2.1 %; EOS ABS # 0.37 K/uL (0-0.5); HEMATOCRIT 40.4 % (37-47); HEMOGLOBIN 14.1 g/dL (12.0-16.0); IG# 0.08 K/uL (0.00-0.02); LYMPH % 5.5 %; LYMPH ABS # 0.96 K/uL (1.2-3.4); MEAN CELL VOLUME 85.8 fL (80-100); MEAN CORPUSCULAR HEMOGLOBIN 29.9 pg (25-34); MEAN CORPUSCULAR HGB CONC 34.9 g/dl (32-36); MEAN PLATELET VOLUME 9.2 fL (7.4-10.4); MONO % 4.6 %; NEUT ABS # 15.06 K/uL (1.4-6.5); PLATELET COUNT 276 K/uL (130-400); RED CELL DISTRIBUTION WIDTH CV 13.9 % (11.5-14.5); RED CELL DISTRIBUTION WIDTH SD 43.3 fL (36.4-46.3); WHITE BLOOD COUNT 17.32 K/uL (4.8-10.8)
[2017-12-22 22:19] LABS: ALBUMIN 4.2 gm/dl (3.4-5.0); ALT/SGPT 27 U/L (12-78); AST/SGOT 21 U/L (15-37); BLOOD UREA NITROGEN 44 mg/dl (7-18); CALCIUM 10.1 mg/dl (8.5-10.1); CARBON DIOXIDE 24 mmol/L (21-32); CREATININE 1.49 mg/dl (0.60-1.20); GLUCOSE 129 mg/dl (70-99); LIPASE 220 U/L (73-393); POTASSIUM 3.6 mmol/L (3.5-5.1); SODIUM 136 mmol/L (136-145)
[2017-12-22 22:24] LABS: ALKALINE PHOSPHATASE 96 U/L (45-117)
--- NOTE | 2017-12-22 23:13 | DIAGNOSTIC IMAGING REPORT ---
ABDOMEN 2VIEW W/PA CHEST RTN HISTORY: 87 years-old Female vomiting acute vomiting COMPARISON: Chest radiograph 05/18/2017 TECHNIQUE: PA view the chest with left lateral decubitus and supine views of the abdomen FINDINGS: Cardiac silhouette is mildly enlarged. Atherosclerosis of the aorta. Mild right hemidiaphragmatic elevation with subsegmental bibasilar opacities suggesting atelectasis. No overt pulmonary edema. Suspected trace left pleural effusion. Degenerative changes of the shoulders and spine. No pneumoperitoneum or bowel obstruction. Multiple air-fluid levels are noted within bowel throughout the abdomen. No pneumatosis. Cholecystectomy clips are noted. Calcifications of the upper abdomen measuring up to 2.3 cm within the abdominal right upper quadrant. Degenerative changes of the pelvis and spine with dextroscoliosis. IMPRESSION: 1. Nonobstructive bowel gas pattern without pneumoperitoneum. 2. Multiple air-fluid levels within nondilated bowel of the central abdomen suggest ileus or enteritis. 3. Cardiomegaly without overt pulmonary edema. 4. Indeterminate 2.3 cm calcification of the abdominal right upper quadrant projects over the right renal shadow. The above report was generated using voice recognition software. It may contain grammatical, syntax or spelling errors. Electronically signed by: Shay Yousif M.D. 12/22/2017 11:11 PM Dictated Date/Time: 12/22/2017 11:09 PM
[2017-12-22] MEDS ORDERED: PIPERACILLIN/TAZOBACTAM 3.375 GM/100ML D5W IV STA (23:41)
[2017-12-23] MEDS ORDERED: CEFTRIAXONE SOD INJ 1 GM in DEXTROSE 5% ADD-VANTAGE 50ML 50 ML IV SCH (00:45)
[2017-12-23] MEDS ORDERED: ONDANSETRON INJ 2 MG/ML 2 ML VIAL IV PRN (00:45)
[2017-12-23] MEDS ORDERED: LACTATED RINGER'S 1000ML 1,000 ML IV SCH (00:45)
[2017-12-23] MEDS ORDERED: ALUMINUM/MAGNESIUM/SIMETH (MAALOX MAX) 30 ML UDC PO PRN (00:45)
[2017-12-23] MEDS ORDERED: ACETAMINOPHEN 325 MG TAB PO PRN (00:45)
[2017-12-23] MEDS ORDERED: ALBUTEROL HFA 8 GM INHALER INH PRN (00:45)
[2017-12-23] MEDS ORDERED: PIPERACILL/TAZOBAC CONSULT ACTIVE PRN (01:00)
--- NOTE | 2017-12-23 01:32 | History and Physical ---
History & Physical Date & Time of Service: December 23, 2017 at 01:00 Chief Complaint: Nausea, Vomiting, Diarrhea Primary Care Physician: Madyson Rodríguez M.D. 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 Patient states that at approximately 19:30 this evening she became hot and sweaty. She had nausea dn 7 -8 episodes of nonbloody/nonbilious vomiting followed by an episode of large volume watery diarrhea. Symptoms resolved shortly after they began. She feels better now, only with fatigue. She denies recent travel, sick contacts or dietary changes. Denies recent antibiotic use. Patient endorses increased urinary frequency and some urgency. Denies hematuria/dysuria. She has a nonobstructing renal calculi noted on prior imaging. She has had UTI in the past, most recently 05/2017 +E. coli. No additional complaints. ER Course: Zosyn 3.375gm, NSS x 1 L Past Medical/Surgical History Medical Problems: 1. CVA - 2001 with residual left sided weakness 2. Hypertension 3. Asthma 4. UTI Past Surgical history: Cholecystectomy Hysterectomy Hernia repair Family History No pertinent family history Father of NM at age 48 Mother of emphysema - lifelong smoker Social History Smoking Status: Never Smoker Smokeless Tobacco Use: No Alcohol Use: none Drug Use: none Marital Status: Housing status: lives with family Occupational Status: retired Immunizations History of Influenza Vaccine: No History of Tetanus Vaccine?: Yes History of Pneumococcal: Yes History of Hepatitis B Vaccine: No Allergies Coded Allergies: Cefuroxime (Verified Allergy, Unknown, Unknown, 12/22/17) Ciprofloxacin (Verified Allergy, Unknown, Unknown, 12/22/17) Codeine (Verified Allergy, Unknown, 12/22/17) Meperidine (Verified Allergy, Unknown, 12/22/17) Oxycodone (Verified Allergy, Unknown, RASH, 12/22/17) Propoxyphene (Verified Allergy, Unknown, 12/22/17) Sulfa Antibiotics (Verified Allergy, Unknown, ., 12/22/17) Sulfamethoxazole (Verified Allergy, Unknown, 12/22/17) Trimethoprim (Verified Allergy, Unknown, 12/22/17) Amphetamine (Unverified Adverse Reaction, Severe, ., 12/22/17) Dextroamphetamine (Unverified Adverse Reaction, Severe, ., 12/22/17) Hydrochlorothiazide (Verified Adverse Reaction, Unknown, GI DISTRESS, 12/22) Methyldopa (Verified Adverse Reaction, Unknown, GI DISTRESS, 12/22/17) Home Medications Scheduled Amlodipine Besylate (Norvasc), 10 MG PO DAILY Atorvastatin (Lipitor), 20 MG PO DAILY Calcium (Elite Calcium), 2 TAB PO BID Cholecalciferol (Vitamin D3), 1 TAB PO DAILY Clopidogrel Bisulfate (Plavix), 75 MG PO DAILY Fluoxetine (Prozac), 10 MG PO UD Fluoxetine (Prozac), 20 MG PO DAILY Fluticasone Furoate-Vilanterol (Breo Ellipta), 1 PUFF INH DAILY Lactobacillus (Acidophilus), 1 CAP PO QAM Levothyroxine Sodium (Levothyroxine Sodium), 1 TAB PO DAILY Lisinopril (Zestril), 40 MG PO DAILY Metoprolol Succinate (Metoprolol Succinate ER), 1 TAB PO DAILY Multivitamins/Minerals (Mvi With Minerals), 1 TAB PO DAILY [place]-3 Fatty Acids (Fish Oil 500 mg), 2 CAP PO DAILY Omeprazole (Prilosec), 20 MG PO DAILY Potassium Chloride (Potassium Chloride Er), 1 CAP PO DAILY Triamterene/Hctz (Dyazide 37.5MG/25MG), 1 TAB PO DAILY Scheduled PRN Albuterol Hfa (Ventolin Hfa), 1-2 PUFFS INH QID PRN for SOB/Wheezing Review of Systems Constitutional: + fatigue, No fever, No chills, No sweats Eyes: No worsening of vision, No diplopia ENT: + hearing loss, + dental problems, No sore throat, No trouble swallowing Respiratory: No cough, No wheezing, No shortness of breath Cardiovascular: No chest pain, No edema, No palpitations Abdomen: + problem reported (see HPI), No pain, No nausea, No vomiting, No diarrhea, No constipation, No GI bleeding Musculoskeletal: No joint pain, No swelling Genitourinary - Female: + urinary frequency, + urinary urgency, No dysuria, No urinary incontinence, No hematuria Neurologic: No weakness Hematologic / Lymphatic: No abnormal bleeding/bruising, No clotting problems Integumentary: No rash, No itch Physical Exam Vital Signs Date Time Temp Pulse Resp B/P (MAP) Pulse Ox O2 Delivery O2 Flow Rate FiO2 12/22/17 23:17 68 18 157/76 97 Room Air 12/22/17 21:39 36.7 60 20 166/79 98 Room Air General Appearance: WD/WN, no apparent distress Head: normocephalic, atraumatic Eyes: normal inspection, EOMI, sclerae normal ENT: hearing grossly normal, pharynx normal, + pertinent finding (dry mucus membranes) Neck: supple, no adenopathy, thyroid normal, trachea midline Respiratory/Chest: chest non-tender, lungs clear, normal breath sounds, no respiratory distress, no accessory muscle use Cardiovascular: regular rate, rhythm, no edema, no JVD, no murmur, normal peripheral pulses Abdomen/GI: normal bowel sounds, non tender, soft, no organomegaly Extremities/Musculoskelatal: normal inspection, no calf tenderness Neurologic/Psych: normal mood/affect, oriented x 3 Skin: normal color, warm/dry, no rash Diagnostics Laboratory Results Results Past 24 Hours Test 12/22/17 21:31 12/22/17 23:15 Range/Units White Blood Count 17.32 4.8-10.8 K/uL Red Blood Count 4.71 4.2-5.4 M/uL Hemoglobin 14.1 12.0-16.0 g/dL Hematocrit 40.4 37-47 % Mean Corpuscular Volume 85.8 80-100 fL Mean Corpuscular Hemoglobin 29.9 25-34 pg Mean Corpuscular Hemoglobin Concent 34.9 32-36 g/dl Platelet Count 276 130-400 K/uL Mean Platelet Volume 9.2 7.4-10.4 fL Neutrophils (%) (Auto) 87.0 % Lymphocytes (%) (Auto) 5.5 % Monocytes (%) (Auto) 4.6 % Eosinophils (%) (Auto) 2.1 % Basophils (%) (Auto) 0.3 % Neutrophils # (Auto) 15.06 1.4-6.5 K/uL Lymphocytes # (Auto) 0.96 1.2-3.4 K/uL Monocytes # (Auto) 0.80 0.11-0.59 K/uL Eosinophils # (Auto) 0.37 0-0.5 K/uL Basophils # (Auto) 0.05 0-0.2 K/uL RDW Standard Deviation 43.3 36.4-46.3 fL RDW Coefficient of Variation 13.9 11.5-14.5 % Immature Granulocyte % (Auto) 0.5 % Immature Granulocyte # (Auto) 0.08 0.00-0.02 K/uL Sodium Level 136 136-145 mmol/L Potassium Level 3.6 3.5-5.1 mmol/L Chloride Level 100 98-107 mmol/L Carbon Dioxide Level 24 21-32 mmol/L Anion Gap 12.0 3-11 mmol/L Blood Urea Nitrogen 44 7-18 mg/dl Creatinine 1.49 0.60-1.20 mg/dl Est Creatinine Clear Calc Drug Dose 26.1 ml/min Estimated GFR () 36.5 Estimated GFR (Non- 31.5 BUN/Creatinine Ratio 29.8 10-20 Random Glucose 129 70-99 mg/dl Calcium Level 10.1 8.5-10.1 mg/dl Magnesium Level 1.9 1.8-2.4 mg/dl Total Bilirubin 0.5 0.2-1 mg/dl Direct Bilirubin 0.1 0-0.2 mg/dl Aspartate Amino Transf (AST/SGOT) 21 15-37 U/L Alanine Aminotransferase (ALT/SGPT) 27 12-78 U/L Alkaline Phosphatase 96 45-117 U/L Troponin I < 0.015 0-0.045 ng/ml Total Protein 9.0 6.4-8.2 gm/dl Albumin 4.2 3.4-5.0 gm/dl Lipase 220 73-393 U/L Urine Color DK YELLOW Urine Appearance TURBID CLEAR Urine pH 5.0 4.5-7.5 Urine Specific [place] 1.020 1.000-1.030 Urine Protein TRACE NEG Urine Glucose (UA) NEG NEG Urine Ketones TRACE NEG Urine Occult Blood 1+ NEG Urine Nitrite NEG NEG Urine Bilirubin NEG NEG Urine Urobilinogen NEG NEG Urine Leukocyte Esterase LARGE NEG Urine WBC (Auto) >30 0-5 /hpf Urine RBC (Auto) 0-4 0-4 /hpf Urine Hyaline Casts (Auto) 1-5 0-5 /lpf Urine Epithelial Cells (Auto) 0-5 0-5 /lpf Urine Bacteria (Auto) 4+ NEG Urine Pathogenic Casts 0 /lpf Microbiology Results 12/22/17 Urine Culture, Received Pending Diagnostic Radiology ABDOMEN 2VIEW W/PA CHEST RTN HISTORY: 87 years-old Female vomiting acute vomiting COMPARISON: Chest radiograph 05/18/2017 TECHNIQUE: PA view the chest with left lateral decubitus and supine views of the abdomen FINDINGS: Cardiac silhouette is mildly enlarged. Atherosclerosis of the aorta. Mild right hemidiaphragmatic elevation with subsegmental bibasilar opacities suggesting atelectasis. No overt pulmonary edema. Suspected trace left pleural effusion. Degenerative changes of the shoulders and spine. No pneumoperitoneum or bowel obstruction. Multiple air-fluid levels are noted within bowel throughout the abdomen. No pneumatosis. Cholecystectomy clips are noted. Calcifications of the upper abdomen measuring up to 2.3 cm within the abdominal right upper quadrant. Degenerative changes of the pelvis and spine with dextroscoliosis. IMPRESSION: 1. Nonobstructive bowel gas pattern without pneumoperitoneum. 2. Multiple air-fluid levels within nondilated bowel of the central abdomen suggest ileus or enteritis. 3. Cardiomegaly without overt pulmonary edema. 4. Indeterminate 2.3 cm calcification of the abdominal right upper quadrant projects over the right renal shadow. The above report was generated using voice recognition software. It may contain grammatical, syntax or spelling errors. EKG The study demonstrates sinus bradycardia at 59bpm, WJG=001, nonspecific t wave changes in V1 and V2, unchanged from prior study. No evidence of acute ischemia Impression Assessment and Plan 87yo female presenting after multiple episodes of vomiting and diarrhea. 1. Nausea/vomiting - 1 episode, acute, self-limiting. Patient presently feels well. Most likely secondary to viral etiology - acute gastroenteritis. -Zofran PRN nausea control -LR at 100mL/hr x 2 liters -Continue to monitor for recurrent GI distress 2. ROXANNA - patient with BUN=44, Cr=1.49 with baseline of 0.9-1.1. Most likely secondary to GI losses. Patient appears slightly dry on physical exam -LR at 100mL/hr x 2 liters -Hold diuretic -Avoid nephrotoxic agents -Renal dosing where appropriate -Repeat BMP in AM 3. +UA - difficult to ascertain presence of true infection. Patient reports a history of a renal stone that has never before been an issue. She has had multiple UAs with culture in the past. She does complain of some increased urinary frequency. Afebrile, hemodynamically stable. She does have a marked leukocytosis- I suspect reactive to #1. Patient with multiple allergies to antibiotics. -Check urine culture -Zosyn 2.25gm IV q 6 -May consider counsultation with ID, will defer to morning team 4. Leukocytosis - WBC=17.32. Reactive secondary to episode of gastroenteritis vs UTI -Continue to monitor, repeat CBC in AM 5. History of CVA - stable -Continue Atorvastatin and Plavix 6. Hypertension - presently mildly hypertensive at 157/76 -Continue Amlodipine -Continue Metoprolol -Hold Dyazide in setting of volume depletion -Hold Lisinopril in setting of mild ROXANNA 7. Depression- stable -Continue BID Fluoxetine outpatient dosing 8. Hypothyroidism -stable -Continue Synthroid 25mcg daily 9. GERD - stable -Protonix while inpatient. May resume outpatient Prilosec at discharge 10. F/E/N - LR at 100mL/hr x 2 liters, monitor electrolytes and replete as needed, AHA diet as tolerated 11. Ppx - Heparin TID 12. Code - Full per discussion with patient 13. Dispo - observation to medical floor Resuscitation Status FULL VTE Prophylaxis Will order VTE Prophylaxis: Yes
[2017-12-23] MEDS ORDERED: ONDANSETRON INJ 2 MG/ML 2 ML VIAL ONE (01:34)
[2017-12-23 01:44] VITALS: BP 154/76; PULSE 72; TEMP 36.9; Ht 157.5 cm; Wt 73.1 kg
[2017-12-23] MEDS: LACTATED RINGER'S 1000ML 1,000 ML IV SCH ×2 (02:26→13:39)
[2017-12-23] MEDS ORDERED: IV FLUIDS COMPLETED PRN (03:00)
[2017-12-23] MEDS: LEVOTHYROXINE 25 MCG TAB PO SCH (05:41)
[2017-12-23] MEDS: HEPARIN SOD 5000 UNIT/0.5 ML CARP SQ SCH ×3 (05:41→21:29)
[2017-12-23] MEDS: PIPERACILL/TAZOBAC IV 3.375 GM in DEXTROSE 5% 100ML 100 ML IV SCH ×3 (06:02→21:25)
[2017-12-23 07:41] VITALS: BP 128/56; PULSE 67; TEMP 36.8; O2SAT 97
[2017-12-23 07:59] LABS: CREATININE 1.25 mg/dl (0.60-1.20)
[2017-12-23 08:09] LABS: CALCIUM 8.6 mg/dl (8.5-10.1); CREATININE 1.25 mg/dl (0.60-1.20); POTASSIUM 3.5 mmol/L (3.5-5.1)
[2017-12-23 08:15] VITALS: O2SAT 97
[2017-12-23 08:26] LABS: BASO % 0.1 %; BASO ABS # 0.02 K/uL (0-0.2); EOS % 0.8 %; EOS ABS # 0.11 K/uL (0-0.5); HEMATOCRIT 31.7 % (37-47); HEMOGLOBIN 10.8 g/dL (12.0-16.0); IG# 0.02 K/uL (0.00-0.02); LYMPH % 4.6 %; LYMPH ABS # 0.64 K/uL (1.2-3.4); MEAN CELL VOLUME 85.4 fL (80-100); MEAN CORPUSCULAR HEMOGLOBIN 29.1 pg (25-34); MEAN CORPUSCULAR HGB CONC 34.1 g/dl (32-36); MEAN PLATELET VOLUME 8.8 fL (7.4-10.4); MONO % 5.2 %; MONO ABS # 0.73 K/uL (0.11-0.59); NEUT % 89.2 %; NEUT ABS # 12.45 K/uL (1.4-6.5); PLATELET COUNT 206 K/uL (130-400); RED CELL DISTRIBUTION WIDTH SD 43.6 fL (36.4-46.3); WHITE BLOOD COUNT 13.97 K/uL (4.8-10.8)
[2017-12-23] MEDS ORDERED: ENOXAPARIN 30 MG/0.3 ML SYR SQ SCH (09:00)
[2017-12-23] MEDS ORDERED: LISINOPRIL 40 MG TAB PO SCH (09:00)
[2017-12-23] MEDS: ATORVASTATIN 20 MG TAB PO SCH (10:05)
[2017-12-23] MEDS: CLOPIDOGREL BISULFATE 75 MG TAB PO SCH (10:06)
[2017-12-23] MEDS: CEROVITE ADV FORMULA TAB PO SCH (10:06)
[2017-12-23] MEDS: AMLODIPINE BESYLATE 5 MG TAB PO SCH (10:06)
[2017-12-23] MEDS: PANTOprazole SOD 40 MG TAB PO SCH (10:07)
[2017-12-23] MEDS: FLUOXETINE HCL 10 MG CAP PO SCH (10:07)
[2017-12-23] MEDS: METOPROLOL SUCC 50MG EXT REL TAB PO SCH (10:09)
[2017-12-23 12:59] LABS: HEMATOCRIT 31.6 % (37-47); HEMOGLOBIN 10.7 g/dL (12.0-16.0)
[2017-12-23 14:56] VITALS: BP 147/68; PULSE 60; TEMP 36.6; O2SAT 93
[2017-12-23 15:20] VITALS: O2SAT 93
--- NOTE | 2017-12-23 17:02 | Family Medicine Progress Note ---
Progress Note Date of Service December 23, 2017. Subjective Pt is resting comfortably in bed, says she feels "worlds better" than when she came in overnight. Has had no more vomiting or nausea. Stools are still loose. Breathing is normal. Spoke at length with family and daughter states she has a history of c. diff that was not preceded by any antibiotic use last May. Otherwise pt has been relatively healthy and has had no recent antibiotic use. ROS See HPI for pertinent positives and negatives. Objective Physical Exam Notes: GENERAL: Awake, alert, in no distress. HENT: Normocephalic, atraumatic. EYES: Normal conjunctiva. Sclera non-icteric. NECK: Supple. FROM. RESPIRATORY: Clear to auscultation. CARDIAC: Regular rate, normal rhythm. Extremities warm and well perfused. Pulses equal. ABDOMEN: Soft, non-distended. No tenderness to palpation. No rebound or guarding. No masses. LOWER EXTREMITIES: Calves are equal size bilaterally and non-tender. No edema. No discoloration. NEURO: No motor deficits noted. SKIN: No rash or jaundice noted. Assessment and Plan 87yo female presenting after multiple episodes of vomiting and diarrhea. PMHx of CVA, HTN, asthma, c. diff colitis, cholecystectomy, depression, hypothyroid and GERD. 1. Nausea/vomiting - 1 episode, acute, self-limiting - ? sec to gastroenteritis - has not vomited since prior to admission. - Zofran PRN nausea control - LR at 100mL/hr x 2 liters given - Continue to monitor for recurrent GI distress 2. ROXANNA - Cr initially 1.49 with baseline of 0.9-1.1. This AM is 1.25, improving. - Most likely secondary to GI losses. responding to fluids as above - Hold triamterene/HCTZ - Avoid nephrotoxic agents - Renal dosing where appropriate - Follow BMP. 3. +UA - difficult to ascertain presence of true infection. Patient reports a history of a renal stone that has never before been an issue. She has had multiple UAs with culture in the past. She does complain of some increased urinary frequency. - Afebrile, hemodynamically stable, marked leukocytosis but multiple allergies to antibiotics. - Spoke with lab, is preliminarily growing. Pending. - Continue Zosyn 2.25gm IV q 6 4. Leukocytosis - WBC=17.32. - Improving to 13.9 this AM - ?2/2 episode of gastroenteritis vs UTI - Follow CBC 5. +FOBT/mild Anemia - Hgb at baseline runs around 11. Today 10 x2 today. - pt is on plavix for CVA, blood not grossly visualized per report. Will continue plavix given risk/benefit. - PT INR is normal - Recheck at 1800 including coags History of CVA - stable -Continue Atorvastatin and Plavix Hypertension - presently mildly hypertensive at 157/76 -Continue Amlodipine -Continue Metoprolol -Hold Dyazide in setting of volume depletion -Hold Lisinopril in setting of mild ROXANNA Depression- stable -Continue BID Fluoxetine outpatient dosing Hypothyroidism -stable -Continue Synthroid 25mcg daily GERD - stable -Protonix while inpatient. May resume outpatient Prilosec at discharge Ppx - Heparin TID Code - Full Dispo - observation to medical floor Current Inpatient Medications Medications (Trade) Dose Ordered Sig/Ace Route Start Time Stop Time Status Last Admin Dose Admin Acetaminophen (Tylenol Tab) 650 mg Q4H PRN PO 12/23/17 00:45 01/22/18 00:44 Al Hydrox/Mg Hydrox/Simethicone (Maalox Max Susp) 15 ml Q4H PRN PO 12/23/17 00:45 01/22/18 00:44 Ondansetron HCl (Zofran Inj) 4 mg Q6H PRN IV 12/23/17 00:45 01/22/18 00:44 Albuterol (Ventolin Hfa Inhaler) 2 puffs QID PRN INH 12/23/17 00:45 01/22/18 00:44 12/23/17 06:14 2 PUFFS Amlodipine Besylate (Norvasc Tab) 10 mg DAILY PO 12/23/17 09:00 01/22/18 08:59 12/23/17 10:06 10 MG Atorvastatin Calcium (Lipitor Tab) 20 mg DAILY PO 12/23/17 09:00 01/22/18 08:59 12/23/17 10:05 20 MG Clopidogrel Bisulfate (plAVix TAB) 75 mg DAILY PO 12/23/17 09:00 01/22/18 08:59 12/23/17 10:06 75 MG Fluoxetine HCl (Prozac Cap) 20 mg PM PO 12/23/17 21:00 01/22/18 20:59 Fluoxetine HCl (Prozac Cap) 10 mg DAILY PO 12/23/17 09:00 01/22/18 08:59 12/23/17 10:07 10 MG Levothyroxine Sodium (Synthroid Tab) 25 mcg DAILYBB PO 12/23/17 06:00 01/22/18 05:59 12/23/17 05:41 25 MCG Multivitamins/ Minerals (Multivitamin W/ Minerals Tab) 1 tab DAILY PO 12/23/17 09:00 01/22/18 08:59 12/23/17 10:06 1 TAB Miscellaneous Information (Order Awaiting Action) 1 ea QS N/A 12/23/17 08:00 01/22/18 07:59 Metoprolol Succinate (Toprol Xl Tab) 100 mg DAILY PO 12/23/17 09:00 01/22/18 08:59 12/23/17 10:09 100 MG Pantoprazole Sodium (Protonix Tab) 40 mg QAM PO 12/23/17 09:00 01/22/18 08:59 12/23/17 10:07 40 MG Piperacillin Sod/ Tazobactam Sod 3.375 gm/Dextrose 115 ml @ 28.75 mls/ hr Q8H IV 12/23/17 06:00 01/02/18 05:59 12/23/17 14:48 28.75 MLS/HR Miscellaneous Information (Consult) 1 ea UD PRN N/A 12/23/17 01:00 01/22/18 00:59 Lactated Ringer's 1,000 ml @ 100 mls/hr Q10H IV 12/23/17 01:45 12/23/17 21:44 12/23/17 13:39 100 MLS/HR Heparin Sodium (Porcine) (Heparin Sq 5000 Unit/0.5ml) 5,000 unit Q8 SQ 12/23/17 06:00 01/22/18 05:59 12/23/17 14:46 5,000 UNIT Miscellaneous (Iv Fluids Completed) 1 ea PRN PRN N/A 12/23/17 03:00 12/23/18 02:59 Lactobacillus Acidophilus (Floranex Tab) 4 tab TIDM PO 12/23/17 17:45 01/22/18 17:44 Date Time Temp Pulse Resp B/P (MAP) Pulse Ox O2 Delivery O2 Flow Rate FiO2 12/23/17 15:20 93 Room Air 12/23/17 14:56 36.6 60 16 147/68 (94) 93 Room Air 12/23/17 08:15 97 Room Air 12/23/17 07:41 36.8 67 16 128/56 (80) 97 Room Air 67 12/23/17 01:44 36.9 72 20 154/76 Room Air 12/23/17 01:30 Room Air 12/23/17 01:16 61 20 150/79 97 12/22/17 23:17 68 18 157/76 97 Room Air 12/22/17 21:39 36.7 60 20 166/79 98 Room Air 12/23/17 07:23 Red Blood Count 3.71, Mean Corpuscular Volume 85.4, Mean Corpuscular Hemoglobin 29.1, Mean Corpuscular Hemoglobin Concent 34.1, Mean Platelet Volume 8.8, Neutrophils (%) (Auto) 89.2, Lymphocytes (%) (Auto) 4.6, Monocytes (%) (Auto) 5.2, Eosinophils (%) (Auto) 0.8, Basophils (%) (Auto) 0.1, Neutrophils # (Auto) 12.45, Lymphocytes # (Auto) 0.64, Monocytes # (Auto) 0.73, Eosinophils # (Auto) 0.11, Basophils # (Auto) 0.02 12/23/17 12:47 12/23/17 07:23 Test 12/22/17 21:31 12/22/17 23:15 12/23/17 07:23 12/23/17 10:23 Prothrombin Time 10.6 SECONDS (9.0-12.0) Prothromb Time International Ratio 1.0 (0.9-1.1) Magnesium Level 1.9 mg/dl (1.8-2.4) Total Bilirubin 0.5 mg/dl (0.2-1) Direct Bilirubin 0.1 mg/dl (0-0.2) Aspartate Amino Transf (AST/SGOT) 21 U/L (15-37) Alanine Aminotransferase (ALT/SGPT) 27 U/L (12-78) Alkaline Phosphatase 96 U/L (45-117) Troponin I < 0.015 ng/ml (0-0.045) Total Protein 9.0 gm/dl (6.4-8.2) Albumin 4.2 gm/dl (3.4-5.0) Lipase 220 U/L (73-393) Urine Color DK YELLOW Urine Appearance TURBID (CLEAR) Urine pH 5.0 (4.5-7.5) Urine Specific [place] 1.020 (1.000-1.030) Urine Protein TRACE (NEG) Urine Glucose (UA) NEG (NEG) Urine Ketones TRACE (NEG) Urine Occult Blood 1+ (NEG) Urine Nitrite NEG (NEG) Urine Bilirubin NEG (NEG) Urine Urobilinogen NEG (NEG) Urine Leukocyte Esterase LARGE (NEG) Urine WBC (Auto) >30 /hpf (0-5) Urine RBC (Auto) 0-4 /hpf (0-4) Urine Hyaline Casts (Auto) 1-5 /lpf (0-5) Urine Epithelial Cells (Auto) 0-5 /lpf (0-5) Urine Bacteria (Auto) 4+ (NEG) Urine Pathogenic Casts /lpf (0) White Blood Count 13.97 K/uL (4.8-10.8) Red Blood Count 3.71 M/uL (4.2-5.4) Hemoglobin 10.8 g/dL (12.0-16.0) Hematocrit 31.7 % (37-47) Mean Corpuscular Volume 85.4 fL (80-100) Mean Corpuscular Hemoglobin 29.1 pg (25-34) Mean Corpuscular Hemoglobin Concent 34.1 g/dl (32-36) Platelet Count 206 K/uL (130-400) Mean Platelet Volume 8.8 fL (7.4-10.4) Neutrophils (%) (Auto) 89.2 % Lymphocytes (%) (Auto) 4.6 % Monocytes (%) (Auto) 5.2 % Eosinophils (%) (Auto) 0.8 % Basophils (%) (Auto) 0.1 % Neutrophils # (Auto) 12.45 K/uL (1.4-6.5) Lymphocytes # (Auto) 0.64 K/uL (1.2-3.4) Monocytes # (Auto) 0.73 K/uL (0.11-0.59) Eosinophils # (Auto) 0.11 K/uL (0-0.5) Basophils # (Auto) 0.02 K/uL (0-0.2) RDW Standard Deviation 43.6 fL (36.4-46.3) RDW Coefficient of Variation 14.0 % (11.5-14.5) Immature Granulocyte % (Auto) 0.1 % Immature Granulocyte # (Auto) 0.02 K/uL (0.00-0.02) Anion Gap 9.0 mmol/L (3-11) Est Creatinine Clear Calc Drug Dose 30.2 ml/min Estimated GFR () 45.1 Estimated GFR (Non- 38.9 BUN/Creatinine Ratio 37.0 (10-20) Calcium Level 8.6 mg/dl (8.5-10.1) Stool Occult Blood POSITIVE (NEGATIVE) Continued [facility] stay due to: multiple IV medications needed Discharge planning: home Resident Tracking Resident Involvement: Resident Care Provided Care Provided: Adult Hospital Medicine Reviewed: Pt Seen/Exam by Me History no further diarrhea/vomiting Constitutional: denies: fever Respiratory: negative: short of breath Cardiovascular: denies chest pain Gastrointestinal/Abdominal: negative: abdominal pain, diarrhea, nausea General Appearance: no apparent distress Respiratory: lungs clear, no respiratory distress Cardiovascular: regular rate, rhythm Neurologic/Psychiatric: alert, oriented x 3 Skin Characteristics: warm/dry Assessment/Plan Resident Physician Supervision Note: I independently interviewed and examined the patient and verified the logan history and physical, reviewed labs and image studies, discussed the case with the resident Dr. Puri and agree with the findings and care plan.
[2017-12-23] MEDS: LACTOBACILLUS ACIDOPHILUS (FLORANEX) TAB PO SCH (17:52)
[2017-12-23 18:48] LABS: HEMATOCRIT 29.9 % (37-47); HEMOGLOBIN 10.1 g/dL (12.0-16.0)
[2017-12-23 18:56] LABS: PTT PATIENT 26.6 SECONDS (21.0-31.0)
[2017-12-23] MEDS ORDERED: FLUOXETINE HCL 20 MG CAP PO SCH (21:00)
[2017-12-23 22:43] VITALS: BP 129/68; PULSE 61; TEMP 36.5; O2SAT 93
[2017-12-24] MEDS: HEPARIN SOD 5000 UNIT/0.5 ML CARP SQ SCH ×2 (06:00→13:52)
[2017-12-24] MEDS: PIPERACILL/TAZOBAC IV 3.375 GM in DEXTROSE 5% 100ML 100 ML IV SCH ×2 (06:00→13:54)
[2017-12-24] MEDS: LEVOTHYROXINE 25 MCG TAB PO SCH (06:00)
[2017-12-24 06:51] LABS: BASO % 0.5 %; BASO ABS # 0.04 K/uL (0-0.2); EOS % 8.8 %; EOS ABS # 0.73 K/uL (0-0.5); HEMATOCRIT 33.3 % (37-47); HEMOGLOBIN 11.2 g/dL (12.0-16.0); IG# 0.02 K/uL (0.00-0.02); LYMPH % 20.1 %; LYMPH ABS # 1.66 K/uL (1.2-3.4); MEAN CELL VOLUME 86.3 fL (80-100); MEAN CORPUSCULAR HGB CONC 33.6 g/dl (32-36); MEAN PLATELET VOLUME 8.6 fL (7.4-10.4); MONO % 7.3 %; NEUT % 63.1 %; NEUT ABS # 5.22 K/uL (1.4-6.5); PLATELET COUNT 202 K/uL (130-400); RED CELL DISTRIBUTION WIDTH CV 14.1 % (11.5-14.5); RED CELL DISTRIBUTION WIDTH SD 44.1 fL (36.4-46.3); WHITE BLOOD COUNT 8.27 K/uL (4.8-10.8)
[2017-12-24 07:14] LABS: CALCIUM 8.8 mg/dl (8.5-10.1); CREATININE 1.07 mg/dl (0.60-1.20); POTASSIUM 3.2 mmol/L (3.5-5.1)
[2017-12-24 07:32] VITALS: BP 132/66; PULSE 55; TEMP 36.4; O2SAT 96
[2017-12-24] MEDS ORDERED: POTASSIUM CHLORIDE 20 MEQ TABCR PO ONE (08:30)
[2017-12-24 08:40] VITALS: BP 163/71; PULSE 68
[2017-12-24] MEDS: METOPROLOL SUCC 50MG EXT REL TAB PO SCH (08:45)
[2017-12-24] MEDS: CLOPIDOGREL BISULFATE 75 MG TAB PO SCH (08:45)
[2017-12-24] MEDS: FLUOXETINE HCL 10 MG CAP PO SCH (08:45)
[2017-12-24] MEDS: ATORVASTATIN 20 MG TAB PO SCH (08:45)
[2017-12-24] MEDS: PANTOprazole SOD 40 MG TAB PO SCH (08:45)
[2017-12-24] MEDS: CEROVITE ADV FORMULA TAB PO SCH (08:45)
[2017-12-24] MEDS: LACTOBACILLUS ACIDOPHILUS (FLORANEX) TAB PO SCH ×3 (08:46→17:31)
[2017-12-24] MEDS: AMLODIPINE BESYLATE 5 MG TAB PO SCH (08:46)
[2017-12-24] MEDS ORDERED: FLUTICASONE FUROATE-VILANTEROL 30 PUFFS/INHALER INH INH SCH (09:00)
--- NOTE | 2017-12-24 14:41 | Discharge Instructions ---
Discharge Instructions Date of Service December 24, 2017. Admission Reason for Admission: Vomiting And Diarrhea Discharge Discharge Diagnosis / Problem: Vomiting, Diarrhea, UTI Discharge Goals Goal(s): Decrease discomfort, Improve function, Increase independence, Improve disease control, Diagnostic testing, Therapeutic intervention Activity Recommendations Activity Limitations: per Instructions/Follow-up section . Instructions / Follow-Up Instructions / Follow-Up You were admitted due to vomiting and diarrhea at home that resolved shortly after arrival, and some anti-nausea medications. It is possible this was due to a viral enteritis, but given that you also have a urinary tract infection, we are sending a prescription for FOSFOMYCIN powder to your pharmacy at [facility]. It's a single dose, in powder form. Please take this as prescribed. It will cost $81, and will be available Tue after 5pm. The IV dose of medicine given here will hold you over till you can get your medicine at the pharmacy. Please also make sure to hydrate well -- this means your weight in pounds divided by 2 = ounces of water to drink everyday. So in your case, 80 ounces of water, so about 2.3 liters per day. You may resume home physical therapy when you are feeling well enough, listen to your body. We have not made any changes to your chronic medications, so please continue these as prescribed by your family physician. We recommend you see your family physician in 3-5 days to review your hospital stay and answer any additional questions. Be Well A Khushi Current Hospital Diet Patient's current hospital diet: AHA Diet (Heart Healthy) Discharge Diet Recommended Diet: Regular Diet Pending Studies Studies pending at discharge: no Medical Emergencies . Who to Call and When: Medical Emergencies: If at any time you feel your situation is an emergency, please call 911 immediately. . Non-Emergent Contact Non-Emergency issues call your: Primary Care Provider Call Non-Emergent contact if: temperature is above 101.5 . . "Provider Documentation" section prepared by Yadira Puri. .
--- NOTE | 2017-12-24 14:47 | Discharge Summary ---
Discharge Summary Date of Service December 24, 2017. Discharge Summary Admission Date: December 23, 2017 at 01:39 Discharge Date: December 24, 2017 Discharge Disposition: Home with services Principal Diagnosis: Diarrhea and vomiting, Urinary Tract infection Problems/Secondary Diagnoses: PMHx of CVA, HTN, asthma, c. diff colitis, cholecystectomy, depression, hypothyroid and GERD. Immunizations: Have You Had Influenza Vaccine: No History of Tetanus Vaccine?: Yes History of Pneumococcal: Yes History of Hepatitis B Vaccine: No Medication Reconciliation Continued Medications: Albuterol Hfa (Ventolin Hfa) 200 Puffs/63747 Mcg Aers 1-2 PUFFS INH QID PRN for SOB/Wheezing, INHALER Amlodipine Besylate (Norvasc) 10 Mg Tab 10 MG PO DAILY, TAB Atorvastatin (Lipitor) 20 Mg Tab 20 MG PO DAILY, TAB Calcium (Elite Calcium) 150 Mg Tab 2 TAB PO BID Cholecalciferol (Vitamin D3) 2,000 Unit Tab 1 TAB PO DAILY, TAB Clopidogrel Bisulfate (Plavix) 75 Mg Tab 75 MG PO DAILY, TAB Fluoxetine (Prozac) 10 Mg Cap 10 MG PO UD, CAP Fluoxetine (Prozac) 20 Mg Cap 20 MG PO DAILY, CAP Fluticasone Furoate-Vilanterol (Breo Ellipta) 1 Inh Inh 1 PUFF INH DAILY 100-25MCG Lactobacillus (Acidophilus) 1 Cap Cap 1 CAP PO QAM Levothyroxine Sodium (Levothyroxine Sodium) 25 Mcg Tab 1 TAB PO DAILY, TAB Lisinopril (Zestril) 40 Mg Tab 40 MG PO DAILY, TAB Metoprolol Succinate (Metoprolol Succinate ER) 100 Mg Tabcr 1 TAB PO DAILY Multivitamins/Minerals (Mvi With Minerals) Tab 1 TAB PO DAILY, TAB [place]-3 Fatty Acids (Fish Oil 500 mg) 1 Cap Cap 2 CAP PO DAILY Omeprazole (Prilosec) 20 Mg Capcr 20 MG PO DAILY, CAP Potassium Chloride (Potassium Chloride Er) 10 Meq Cap 1 CAP PO DAILY, CAP Triamterene/Hctz (Dyazide 37.5MG/25MG) Cap 1 TAB PO DAILY, CAP Discharge Exam Pt is eating breakfast on morning of discharge, is comfortable in bed. Denies any further nausea or vomiting. Despite an initial +FOBT, pt's hemoglobin has been stable x 3. Denies s/s of blood loss anemia. Denies dysuria or diarrhea. Discussed limited options of antibiotic therapy for E. Coli UTI - given pt's numerous allergies as well as borderline creatinine clearance. Pt and pt's daughter expressed reservations about ertapenem/fosfomycin option given pt's past h/o c. diff. Discussed risks and benefits, pt and pt's daughter verbalized understanding and state they choose not to proceed with planned treatment as listed below. ROS See HPI for pertinent positives and negatives. PHYSICAL EXAM GENERAL: Awake, alert, in no distress. HENT: Normocephalic, atraumatic. EYES: Normal conjunctiva. Sclera non-icteric. NECK: Supple. FROM. RESPIRATORY: Clear to auscultation. CARDIAC: Regular rate, normal rhythm. Extremities warm and well perfused. Pulses equal. ABDOMEN: Soft, non-distended. No tenderness to palpation. No rebound or guarding. No masses. LOWER EXTREMITIES: Calves are equal size bilaterally and non-tender. No edema. No discoloration. NEURO: No motor deficits noted. SKIN: No rash or jaundice noted. Hospital Course Ms. Parra is a 87 year old female who presents with one episode of severe diarrhea and vomiting prior to admission. The gastrointestinal upset came on after eating fruit at home that apparently her did not eat. In the ED pt was treated with IVF and also started IV Zosyn for possible infection. Since pt did have a h/o c. diff colitis, her stool was checked and was negative for c. diff On day 1 and day 2 patient was clinically much improved, eating full diet and tolerating that very well, and tolerating zosyn well. UA was + and cultures grew E. coli and diphtheroids which were likely skin tierney. Of note, pt states she did not have a history of dysuria. Patient is allergic to sulfa drugs, trimethoprim, cephalosporins and ciprofloxacin. Her creatinine clearance precluded nitrofurantoin. Pharmacist recommended using fosfomycin on discharge. Considering that her symptoms likely were secondary to gastroenteritis and that she likely had asymptomatic bacteriuria - while having h/o C diff patient and her daughter declined continue further antibiotic treatment at the time of discharge. Discussed the possibility of partially treated infection and antibiotic resistance and they verbalized understanding. Total Time Spent: Greater than 30 minutes This includes examination of the patient, discharge planning, medication reconciliation, and communication with other providers. Discharge Instructions Please refer to the electronic Patient Visit Report (Discharge Instructions) for additional information. Additional Copies To Madyson Rodríguez M.D. Resident Tracking Resident Involvement: Resident Care Provided Care Provided: Adult Hospital Medicine Reviewed: Pt Seen/Exam by Me History no further diarrhea, vomiting tolerated meals well. Constitutional: denies: fever Respiratory: negative: short of breath Cardiovascular: denies chest pain Gastrointestinal/Abdominal: negative: abdominal pain General Appearance: no apparent distress Respiratory: lungs clear, no respiratory distress Cardiovascular: regular rate, rhythm Neurologic/Psychiatric: alert, oriented x 3 Skin Characteristics: warm/dry Assessment/Plan Resident Physician Supervision Note: I independently interviewed and examined the patient and verified the logan history and physical, reviewed labs and image studies, discussed the case with the resident Dr. Puri and agree with the findings and care plan. Time spent in discharge 40 min
[2017-12-24 14:55] VITALS: BP 132/83; PULSE 56; TEMP 36.7; O2SAT 94
[2017-12-24] MEDS ORDERED: ERTAPENEM IV 1 GM in SODIUM CHLOR 0.9% AD-VAN 50ML 50 ML IV SCH (15:15)
[2017-12-24] MEDS ORDERED: ERTAPENEM IV 1,000 MG in SODIUM CHLORIDE 0.9% 50ML 50 ML IV SCH (15:30)
[2017-12-24 15:53] VITALS: BP 132/83; PULSE 56; TEMP 36.7; O2SAT 94
== END 2017-12-24 18:30 | disposition home or self-care (01) ==
LOC: EDBD 21:13 → C.EDC 21:14 → ENRESERV 12-23 01:05 → C.MSW 12-23 01:39 → UNDOADMOB 12-23 01:39
PROVIDERS: ADMIT Internal Medicine; ATTEND Family Medicine
DX: R11.10 Vomiting, unspecified (principal); R19.7 Diarrhea, unspecified; N39.0 Urinary tract infection, site not specified; D72.829 Elevated white blood cell count, unspecified; I69.998 Other sequelae following unspecified cerebrovascular disease; J45.909 Unspecified asthma, uncomplicated; N17.9 Acute kidney failure, unspecified; E03.9 Hypothyroidism, unspecified; I10 Essential (primary) hypertension; K21.9 Gastro-esophageal reflux disease without esophagitis; F32.9 Major depressive disorder, single episode, unspecified; Z87.440 Personal history of urinary (tract) infections; Z79.02 Long term (current) use of antithrombotics/antiplatelets; Z88.1 Allergy status to other antibiotic agents; Z88.5 Allergy status to narcotic agent; Z88.2 Allergy status to sulfonamides; Z82.49 Family history of ischemic heart disease and other diseases of the circulatory system

== ENCOUNTER 2019-02-06 13:28 | Inpatient (IN) ==
[2019-02-06] MEDS ORDERED: PIPERACILLIN/TAZOBACTAM 4.5 GM/120 ML BAG IV ONE (14:44)
[2019-02-06] MEDS ORDERED: PIPERACILL/TAZOBAC CONSULT ACTIVE PRN (14:44)
[2019-02-06 14:53] LABS: Hematocrit (blood only) 28.2 % (37-47); Hemoglobin 9.3 g/dL (12.0-16.0); Mean Corpuscular Volume 83.2 fL (80-100); Mean Platelet Volume 8.3 fL (7.4-10.4); Platelet Count 527 K/uL (130-400); RDW Coefficient of Variation 14.9 % (11.5-14.5); RDW Standard Deviation 45.8 fL (36.4-46.3); Red Blood Count 3.39 M/uL (4.2-5.4)
[2019-02-06 15:01] LABS: Albumin Level 2.3 gm/dl (3.4-5.0); Calcium 10.2 mg/dl (8.5-10.1); Est GFR (African American) 36.2; Est GFR (Non-African American) 31.3; Potassium 4.3 mmol/L (3.5-5.1)
[2019-02-06 15:04] LABS: Albumin Globulin Ratio 0.4 (0.9-2); Bilirubin,Total 0.5 mg/dl (0.2-1); Globulin 5.5 gm/dl (2.5-4.0); Total Protein 7.8 gm/dl (6.4-8.2)
[2019-02-06 15:20] LABS: Basophils # (auto) 0.03 K/uL (0-0.2); Basophils % (auto) 0.2 %; Eosinophils # (auto) 0.13 K/uL (0-0.5); Eosinophils % (auto) 0.8 %; Immature Granulocytes # (auto) 0.15 K/uL (0.00-0.02); Immature Granulocytes % (auto) 0.9 %; Lymphocytes # (auto) 1.08 K/uL (1.2-3.4); Lymphocytes % (auto) 6.5 %; Monocytes # (auto) 1.36 K/uL (0.11-0.59); Monocytes % (auto) 8.1 %; Neutrophils # (auto) 13.95 K/uL (1.4-6.5); Neutrophils % (auto) 83.5 %
--- NOTE | 2019-02-06 17:57 | Surgery Consultation ---
Date of Consultation February 06, 2019 Assessment & Plan (1) Abdomen enlarged: I reviewed the CAT scan with the radiologist Dr. Quiroz and the issues that were addressed was whether or not the patient had a fistulous track to the colon that was read and he felt that this was unlikely there was one speck of air a question of etiology there is no true evidence of any abscess at this time but does have a component of a more solidified area in the lower abdomen and this mass that may be associated with old blood he feels that this most likely is a hematoma I discussed in detail with radiologist regarding drainage percutaneously but unlikely that this would be any beneficial since it is it is a hematoma and unless we were considering that this could possibly be an infection he would rather not proceed accordingly the other option would be surgically to take the patient an open wound up to evacuate the hematoma and possibly apply a VAC system but that certainly could raise possibility that this is not infected that ended up with infection I discussed the case with Dr. Lechuga the ER physician and I my recommendation artifact the patient to be admitted to the medical service for multiple medical problems repeat and follow serial hemoglobin and reevaluate the patient for any progression of the hematoma but if stable this time possibly the best avenue to leave it alone. The medics and service admits the patient I would be glad to follow-up in consultation thank you History of Present Illness Reason for Consultation: Called by the ER physician for input on the patient who presented with abdominal wall swelling with a past complex medical history of multiple ventral hernias that developed the swelling recently on the transversing lower abdomen underwent a CT scan by the primary physician and a large complex fluid collection possible air possible fistulous tract and hematoma was entertained Allergies Allergy/AdvReac Type Severity Reaction Status Date / Time oxycodone Allergy Mild RASH Verified 02/06/19 11:01 alendronate sodium Allergy Unknown [facility] LIST Verified 02/06/19 11:01 Bactrim Allergy Unknown [facility] LIST Verified 02/07/18 04:16 cefuroxime Allergy Unknown UNKNOWN ON Verified 02/06/19 11:01 LIST Cipro Allergy Unknown Unknown Verified 02/07/18 21:42 ciprofloxacin Allergy Unknown UNKNOWN ON Verified 02/06/19 11:01 LIST codeine Allergy Unknown UNKNOWN ON Verified 02/06/19 11:01 LIST gabapentin Allergy Unknown UNKNOWN ON Verified 02/06/19 11:01 LIST meperidine Allergy Unknown UNKNOWN ON Verified 02/06/19 11:01 LIST propoxyphene Allergy Unknown UNKNOWN ON Verified 02/06/19 11:01 LIST Sulfa (Sulfonamide Allergy Unknown UNKNOWN ON Verified 02/06/19 11:01 Antibiotics) LIST [facility] 02/06/19 11:01 trimethoprim [facility] 02/06/19 11:01 amphetamine AdvReac Severe UNKNOWN ON Verified 02/06/19 11:01 LIST dextroamphetamine AdvReac Severe UNKNOWN ON Verified 02/06/19 11:01 LIST hydrochlorothiazide AdvReac Intermediate GI DISTRESS Verified 02/06/19 11:01 methyldopa AdvReac Intermediate GI DISTRESS Verified 02/06/19 11:01 Home Medications Home Medications Medication Instructions Recorded Confirmed Type Lactobacillus acidophilus 100 mg PO DAILY 12/26/18 02/06/19 History [Acidophilus] albuterol sulfate [Ventolin HFA] 1 - 2 puff INHALATION Q4 PRN 12/26/18 02/06/19 History amlodipine 10 mg PO DAILY 12/26/18 02/06/19 History atorvastatin 20 mg PO DAILY 12/26/18 02/06/19 History calcium carbonate 300 mg PO BID 12/26/18 02/06/19 History cholecalciferol (vitamin D3) 2,000 unit PO DAILY 12/26/18 02/06/19 History [Vitamin D3] fluoxetine 10 mg PO QAM 12/26/18 02/06/19 History fluoxetine 20 mg PO QPM 12/26/18 02/06/19 History fluticasone furoate-vilanterol 1 inh INHALATION DAILY 12/26/18 02/06/19 History [Breo Ellipta] metoprolol succinate 100 mg PO DAILY 12/26/18 02/06/19 History multivitamin 1 tab PO DAILY 12/26/18 02/06/19 History omega 8-[id number]-fish oil [Fish Oil] 1 cap PO DAILY 12/26/18 02/06/19 History potassium chloride 10 meq PO DAILY 12/26/18 02/06/19 History triamterene-hydrochlorothiazid 1 tab PO DAILY 12/26/18 02/06/19 History clopidogrel 75 mg tablet 75 mg PO DAILY #90 tab 01/23/19 02/06/19 Rx lisinopril 40 mg tablet 40 mg PO DAILY #90 tab 01/23/19 02/06/19 Rx omeprazole 20 mg tablet,delayed 20 mg PO DAILY #90 tab 01/23/19 02/06/19 Rx release levothyroxine 25 mcg PO DAILY 02/06/19 02/06/19 History Patient History Medical History Vertigo (Acute) Transient ischemic attack (Acute) Obstructive sleep apnea, adult (Acute) Hypothyroidism (Acute) Hyperlipidemia (Acute) Depression (Chronic) Chronic cerebral ischemia (Acute) Chronic asthmatic bronchitis (Acute) CAD (coronary artery disease) (Acute) Asthma HTN (hypertension) Surgical History S/P cholecystectomy S/P hernia repair S/P hysterectomy Family History Other Family history non-contributory Social History Feels Safe at Home: Yes Smoking Status: Never smoker Review of Systems Review of Systems: Review of systems were obtained by the patient and the family who are at the bedside the patient has had a very complex past medical history including being on 4 antihypertensive medicines history of stroke multiple falls the last one being approximately 2 weeks ago on Plavix He also states that approximately 2 weeks ago the patient was treated what appeared to be a fungal infection across her abdomen and recently the patient complained of abdominal swelling that led to the ER visit she denies any direct history of trauma although she had multiple falls in the recent past including one did fracture her coccyx she denies any GI symptoms no changes in bowel habits denies chills or fever Physical Exam Physical Exam: The patient is alert and coherent no distress her vitals were noticed the abdominal exam revealed a very soft protrusion around the umbilical area transversely extending approximately 20 cm there is no fluctuance no redness and minimal tenderness the rest of the abdomen is completely benign Results & Data Vital Signs (Past 12 Hours) Vital Signs Temp Pulse Pulse Resp BP BP Pulse Ox 02/06/19 16:30 73 18 112/52 L 97 02/06/19 15:49 70 18 121/52 L 97 02/06/19 15:16 73 18 111/53 L 98 02/06/19 13:35 36.6 C 74 18 105/66 99
--- NOTE | 2019-02-06 19:37 | History & Physical Report ---
Date of Service February 06, 2019 Assessment & Plan (1) Abdominal wall fluid collections: Dr. Cavanaugh reported to the ED physician that he reviewed imaging with radiology. After further review, it is felt that this fluid collection is most likely a hematoma only and no concern for abscess. It is thought that this blood is older and therefore not able to be drained. There was suggestion of fistula as well, and this is thought to be very unlikely. It was reported to me that there is no need for OR or IR intervention. Monitor Hb, which was 9.3 on admission Was given a dose of zosyn in the ED for concern of possible abscess, however it appears this concern is no longer present. Will not continue at this time Leukocytosis in the setting of recent stress reactions and possible fungal infection, monitor Pt is on plavix for hx of CVA Given this is thought to be an old hematoma without active bleeding per the sign out from the ED physician, I am going to continue plavix This should be reconsidered if there is new concern for bleeding I discussed this with family at length and they are in agreement with this plan. They are aware that if pt has new bleeding or drop in Hb, this may need stopped. (2) Anemia: Likely related to above Monitor (3) ARF (acute renal failure): In the setting of recent falls and decreased PO intake Monitor Holding on aggressive IVF to avoid potential abd distention given above (4) Back Pain: Recent coccyx fracture Monitor PT/OT (5) Hyperlipidemia: continue home meds (6) Depression: continue home meds (7) Asthma: continue home meds (8) HTN (hypertension): BP was toward the lower end on presentation Daughter states no true hypoTN or tachycardia noted on home measurements Continue current regimen, but if pt continues to stay less than 120/80, may want to start tapering off of some of her home medications Outpt plan was to monitor x2 weeks and decide at that time (9) GERD (gastroesophageal reflux disease): continue home meds (10) Hypokalemia: continue home meds (11) DVT prophylaxis: SCDs Holding rx due to above History of Present Illness Primary Care Provider: Madyson Rodríguez MD 88 y/o F who was sent to the ED for evaluation after being found to have a fluid collection on CTAP. Daughter states that pt had a fall in the [employer] parking lot in December. She hit several areas of her body, including face, L shoulder and knee, and ribs which resulted in rib fractures. She was evaluated at that time and no other issues. A few weeks later, she noted that her abd was red and warm. Pt has hx of multiple abd surgeries and scar tissue that has lead to her abd always having some level of distention and unusual texture/appearance. Pt was being seen by Dr. Horner on 01/24 for a routine visit and she noted her abd skin changes. He thought it looked like a possible fungal infection and advised for lamosil. She was having no abd pain at that time. They used the lamosil and her warmth and redness resolved. Pt had another fall on 01/26. This time, she fell backwards. She was having ongoing pain related to this and was seen by PCP and ortho. She was dx with a coccyx fracture. Pt noted abd pain and distention this AM that was new from the prior issues. She was seen by PCP who ordered a CTAP. It was noted to have a fluid collection and pt was sent to the ED. Pt has hx of urinary incontinence. No blood noted in urine or stool. Pt states she mostly just feels tired. Daughter states that pt has not been active since her initial fall due to MSK pain related to this. She has been mostly in bed since that time. Pt denies current abd pain. She and daughter feel that her abd distention is less than prior. No return of recent skin changes noted. Pt denies fever, SOB, chest pain, n/v/c/d, LE pain or swelling. Pt takes several medications for BP. They check pt's BP and started working on a BP journal a few days ago to determine if pt needs current regimen as she has lost weight over the last few years. Daughter states pt typically runs 120-140/60-80. Pt has been working with home PT. She did not participate this week due to requesting a week off s/p fall with coccyx fracture and subsequent pain. Pt takes plavix for a hx of CVA in 2001. This was dx via CT scan in [place]. Pt has had ambulation issues since that time due to some LE weakness that is residual from her CVA. She feels that both of her recent falls were due to LE weakness. She had no lightheadedness or dizziness prior to these falls, she simply lost her balance and could not correct it. Dr. Cavanaugh reported to the ED physician that he reviewed imaging with radiology. After further review, it is felt that this fluid collection is most likely a hematoma only and no concern for abscess. It is thought that this blood is older and therefore not able to be drained. There was suggestion of fistula as well, and this is thought to be very unlikely. It was reported to me that there is no need for OR or IR intervention. Allergies Allergy/AdvReac Type Severity Reaction Status Date / Time oxycodone Allergy Mild RASH Verified 02/06/19 11:01 alendronate sodium Allergy Unknown [facility] LIST Verified 02/06/19 11:01 Bactrim Allergy Unknown [facility] LIST Verified 02/07/18 04:16 cefuroxime Allergy Unknown UNKNOWN ON Verified 02/06/19 11:01 LIST Cipro Allergy Unknown Unknown Verified 02/07/18 21:42 ciprofloxacin Allergy Unknown UNKNOWN ON Verified 02/06/19 11:01 LIST codeine Allergy Unknown UNKNOWN ON Verified 02/06/19 11:01 LIST gabapentin Allergy Unknown UNKNOWN ON Verified 02/06/19 11:01 LIST meperidine Allergy Unknown UNKNOWN ON Verified 02/06/19 11:01 LIST propoxyphene Allergy Unknown UNKNOWN ON Verified 02/06/19 11:01 LIST Sulfa (Sulfonamide Allergy Unknown UNKNOWN ON Verified 02/06/19 11:01 Antibiotics) LIST sulfamethoxazole Allergy Unknown [facility] LIST Verified 02/06/19 11:01 trimethoprim Allergy Unknown [facility] LIST Verified 02/06/19 11:01 amphetamine AdvReac Severe UNKNOWN ON Verified 02/06/19 11:01 LIST dextroamphetamine AdvReac Severe UNKNOWN ON Verified 02/06/19 11:01 LIST hydrochlorothiazide AdvReac Intermediate GI DISTRESS Verified 02/06/19 11:01 methyldopa AdvReac Intermediate GI DISTRESS Verified 02/06/19 11:01 Home Medications Home Medications Medication Instructions Recorded Confirmed Type Lactobacillus acidophilus 100 mg PO DAILY 12/26/18 02/06/19 History [Acidophilus] albuterol sulfate [Ventolin HFA] 1 - 2 puff INHALATION Q4 PRN 12/26/18 02/06/19 History amlodipine 10 mg PO DAILY 12/26/18 02/06/19 History atorvastatin 20 mg PO DAILY 12/26/18 02/06/19 History calcium carbonate 300 mg PO BID 12/26/18 02/06/19 History cholecalciferol (vitamin D3) 2,000 unit PO DAILY 12/26/18 02/06/19 History [Vitamin D3] fluoxetine 10 mg PO QAM 12/26/18 02/06/19 History fluoxetine 20 mg PO QPM 12/26/18 02/06/19 History fluticasone furoate-vilanterol 1 inh INHALATION DAILY 12/26/18 02/06/19 History [Breo Ellipta] metoprolol succinate 100 mg PO DAILY 12/26/18 02/06/19 History multivitamin 1 tab PO DAILY 12/26/18 02/06/19 History omega 5-fcx-lhd-fish oil [Fish Oil] 1 cap PO DAILY 12/26/18 02/06/19 History potassium chloride 10 meq PO DAILY 12/26/18 02/06/19 History triamterene-hydrochlorothiazid 1 tab PO DAILY 12/26/18 02/06/19 History clopidogrel 75 mg tablet 75 mg PO DAILY #90 tab 01/23/19 02/06/19 Rx lisinopril 40 mg tablet 40 mg PO DAILY #90 tab 01/23/19 02/06/19 Rx omeprazole 20 mg tablet,delayed 20 mg PO DAILY #90 tab 01/23/19 02/06/19 Rx release levothyroxine 25 mcg PO DAILY 02/06/19 02/06/19 History Past Med/Surg History Medical History Abdomen enlarged Vertigo (Acute) Transient ischemic attack (Acute) Obstructive sleep apnea, adult (Acute) Hypothyroidism (Acute) Hyperlipidemia (Acute) Depression (Chronic) Chronic cerebral ischemia (Acute) Chronic asthmatic bronchitis (Acute) CAD (coronary artery disease) (Acute) Asthma HTN (hypertension) Surgical History S/P cholecystectomy S/P hernia repair S/P hysterectomy Family History Other Family history non-contributory Social History Preferred Language: Sammarinese Communication Ability: Effective Spiritual Counselor Required: No Beliefs That Will Affect Care: Oriental Orthodox Oriental Orthodox Beliefs: Restorationism Current Living Situation: Spouse Feels Safe at Home: Yes Safety Concerns: Feels Safe At This Time Smoking Status: Never smoker Do You Dip or Chew Tobacco: No Hx Alcohol Use: No Hx Substance Use: No Review of Systems Review of Systems: Pertinent positives and negatives reviewed in HPI--all others negative Physical Exam Constitutional: WD/WN, vitals as above Eyes: normal visual juarez by confrontation and + anicteric sclerae Neck: normal visual inspection and trachea midline Respiratory: normal respiratory effort, lungs clear to auscultation Cardiovascular: Rate/Rhythm: regular rate and regular rhythm Gastrointestinal (Abdomen): Inspection/Auscultation: + abdomen distended Percussion/Palpation: + abdomen tender (diffuse) and abdomen soft Musculoskeletal: Head/Neck/Chest: normocephalic and head atraumatic negative for edema, peripheral pulses intact Skin: abdominal skin is warmer to the touch than other areas Mild redness near old incision sites Neurologic: awake; not confused Speech / Cognition: normal speech Psychiatric: A+Ox3, euthymic affect Results & Data Vital Signs (Past 12 Hours) Vital Signs Temp Pulse Pulse Resp BP BP Pulse Ox 02/06/19 18:30 72 18 107/47 L 95 02/06/19 17:30 72 18 111/56 L 97 02/06/19 16:30 73 18 112/52 L 97 02/06/19 15:49 70 18 121/52 L 97 02/06/19 15:16 73 18 111/53 L 98 02/06/19 13:35 36.6 C 74 18 105/66 99 Diagnostic Findings CTAP: 1. Large complex subcutaneous fluid collection of the anterior abdominal wall that extends to the abdominal wall musculature, measuring 21.7 x 7.7 x 14.5 cm. Areas of increased attenuation suggest blood clot. This favors hemorrhage, possibly within a seroma. However, gas within this collection raises the possibility of a superimposed infection or fistula. Previous ventral hernia repair with mesh with thick-walled gas containing focus which extends deep to the abdominal wall musculature and abuts the transverse colon. Although not identified, an underlying colonic fistula cannot be excluded. Discussed with Dr. Rodríguez at time of dictation. 2. No bowel obstruction. Extensive colonic diverticulosis. 3. Complex lesion arising from the lower pole of the left kidney. A cyst is favored however this is indeterminate and suboptimally assessed on this unenhanced exam. A nonemergent renal ultrasound is recommended. 4. Acute appearing mildly displaced inferior sacral fracture as shown on recent radiographs. Code Status & VTE Plan Code Status Full code VTE Prophylaxis Plan VTE Prophylaxis will be ordered: Yes PG Care Time/CCT Total # of Minutes Spent Total Time Spent with Patient: Total time spent is greater than 50% in coordination of care (as documented) at patient's floor/unit and/or counseling patient: (1) Anemia Anemia type: unspecified type Qualified Code(s): D64.9 - Anemia, unspecified
[2019-02-06 20:03] LABS: Appearance Urine Cloudy (Clear); Bacteria Urine Automated 3+ (Negative); Bilirubin Urine Negative (Negative); Blood Urine Negative (Negative); Color Urine Yellow; Epithelial Cell Urine Auto >30 /lpf (0-5); Glucose Urine UA Negative (Negative); Ketones Urine Negative (Negative); Leukocyte Esterase Urine 2+ (Negative); Nitrite Urine Positive (Negative); Protein Urine Negative (Negative); RBC Urine Automated 0-4 /hpf (0-4); Specific Gravity Urine 1.018 (1.000-1.030); Urobilinogen Urine Negative (Negative); WBC Urine Automated >30 /hpf (0-5)
--- NOTE | 2019-02-06 20:10 | Emergency Department Note ---
Entered by Eleanor Murillo acting as a scribe for Vladislav Sow MD History of Present Illness General Chief complaint: Abdominal Pain Stated complaint: ADB PAIN/HAD CT SCAN IN THE LAST HOUR Source: patient and family (+Daughter) Limitations: no limitations History of Present Illness Provider complaint: Abdominal Pain Onset (ago): day(s) 4 Location: abdomen Radiation: non-radiation Maximum Pain Intensity: 3 Associated symptoms: + denies other symptoms (-urinary problems) and + other (+fatigue ); no fever/chills and no nausea/vomiting The patient is a 88 year old female who presents to the Emergency Room with complaints of abdominal pain that began 4 days prior to arrival. The patient states that she has fatigue but denies any general pain. The patient denies vomiting, nausea, fevers, chills, or urinary problems. The patient states that she has been having normal bowel movements. Per daughter, the patient was having redness on her abdomen that began in early January. Per daughter, the patient saw Dr. Horner-Cardiology who thought that the patient had fungus on her abdomen and recommended the patient use Lamisil. Per daughter, the patient's abdomen seemed to be getting better but states that the patient's abdomen was still distended. The patient states that her abdomen only began swelling several days ago. The patient denies any cuts on her abdomen or scratching at her abdomen. The patient states that she saw her PCP prior to arrival for her abdominal pain and states that her doctor thought the patient's abdomen felt "fluidy" and wanted the patient to get a CT done immediately. The patient states that she has a history of 11 hernia surgeries and states that her last hernia surgery was approximately 5 years ago. Per daughter, the patient's abdomen was filling up with fluid after the hernia repair and states that the patient underwent a lysis of adhesions after the surgery. The patient denies any abdominal surgeries since the lysis of adhesions. The patient states that she also has a past surgical history of a hysterectomy and cholecystectomy. Home Medications Home Medications Medication Instructions Recorded Confirmed Type Lactobacillus acidophilus 100 mg PO DAILY 12/26/18 02/06/19 History [Acidophilus] albuterol sulfate [Ventolin HFA] 1 - 2 puff INHALATION Q4 PRN 12/26/18 02/06/19 History amlodipine 10 mg PO DAILY 12/26/18 02/06/19 History atorvastatin 20 mg PO DAILY 12/26/18 02/06/19 History calcium carbonate 300 mg PO BID 12/26/18 02/06/19 History cholecalciferol (vitamin D3) 2,000 unit PO DAILY 12/26/18 02/06/19 History [Vitamin D3] fluoxetine 10 mg PO QAM 12/26/18 02/06/19 History fluoxetine 20 mg PO QPM 12/26/18 02/06/19 History fluticasone furoate-vilanterol 1 inh INHALATION DAILY 12/26/18 02/06/19 History [Breo Ellipta] metoprolol succinate 100 mg PO DAILY 12/26/18 02/06/19 History multivitamin 1 tab PO DAILY 12/26/18 02/06/19 History omega 8-ivt-ulc-fish oil [Fish Oil] 1 cap PO DAILY 12/26/18 02/06/19 History potassium chloride 10 meq PO DAILY 12/26/18 02/06/19 History triamterene-hydrochlorothiazid 1 tab PO DAILY 12/26/18 02/06/19 History clopidogrel 75 mg tablet 75 mg PO DAILY #90 tab 01/23/19 02/06/19 Rx lisinopril 40 mg tablet 40 mg PO DAILY #90 tab 01/23/19 02/06/19 Rx omeprazole 20 mg tablet,delayed 20 mg PO DAILY #90 tab 01/23/19 02/06/19 Rx release levothyroxine 25 mcg PO DAILY 02/06/19 02/06/19 History Allergies Allergy/AdvReac Type Severity Reaction Status Date / Time oxycodone Allergy Mild RASH Verified 02/06/19 11:01 alendronate sodium Allergy Unknown [facility] LIST Verified 02/06/19 11:01 Bactrim Allergy Unknown [facility] LIST Verified 02/07/18 04:16 cefuroxime Allergy Unknown UNKNOWN ON Verified 02/06/19 11:01 LIST Cipro Allergy Unknown Unknown Verified 02/07/18 21:42 ciprofloxacin Allergy Unknown UNKNOWN ON Verified 02/06/19 11:01 LIST codeine Allergy Unknown UNKNOWN ON Verified 02/06/19 11:01 LIST gabapentin Allergy Unknown UNKNOWN ON Verified 02/06/19 11:01 LIST meperidine Allergy Unknown UNKNOWN ON Verified 02/06/19 11:01 LIST propoxyphene Allergy Unknown UNKNOWN ON Verified 02/06/19 11:01 LIST Sulfa (Sulfonamide Allergy Unknown UNKNOWN ON Verified 02/06/19 11:01 Antibiotics) LIST sulfamethoxazole Allergy Unknown [facility] LIST Verified 02/06/19 11:01 trimethoprim Allergy Unknown [facility] LIST Verified 02/06/19 11:01 amphetamine AdvReac Severe UNKNOWN ON Verified 02/06/19 11:01 LIST dextroamphetamine AdvReac Severe UNKNOWN ON Verified 02/06/19 11:01 LIST hydrochlorothiazide AdvReac Intermediate GI DISTRESS Verified 02/06/19 11:01 methyldopa AdvReac Intermediate GI DISTRESS Verified 02/06/19 11:01 Past Med/Surg History Medical History Abdomen enlarged Vertigo (Acute) Transient ischemic attack (Acute) Obstructive sleep apnea, adult (Acute) Hypothyroidism (Acute) Hyperlipidemia (Acute) Depression (Chronic) Chronic cerebral ischemia (Acute) Chronic asthmatic bronchitis (Acute) CAD (coronary artery disease) (Acute) Asthma HTN (hypertension) Surgical History S/P cholecystectomy S/P hernia repair S/P hysterectomy Family History Other Family history non-contributory Social History Feels Safe at Home: Yes Smoking Status: Never smoker Hx Alcohol Use: No Hx Substance Use: No Review of Systems See HPI for pertinent positives & negatives. and A total of 10 systems reviewed and were otherwise negative Physical Exam Vital Signs Vital Signs - 24 hr 02/06/19 13:35 02/06/19 15:16 02/06/19 15:49 Temperature 36.6 C Temperature Source Oral Sepsis Recent Fever Within 48 Hours No Sepsis New/Unexplained Change in Mental Status No Sepsis Action Taken by Nursing No Action Required Pulse Rate 74 Pulse Rate [Right Finger] 73 70 Respiratory Rate 18 18 18 Blood Pressure 105/66 Blood Pressure [Right Arm] 111/53 L 121/52 L Blood Pressure Mean 79 Blood Pressure Mean [Right Arm] 72 75 Pulse Oximetry 99 98 97 Oxygen Delivery Method Room Air 02/06/19 16:30 02/06/19 17:30 02/06/19 18:30 Temperature Temperature Source Sepsis Recent Fever Within 48 Hours Sepsis New/Unexplained Change in Mental Status Sepsis Action Taken by Nursing Pulse Rate Pulse Rate [Right Finger] 73 72 72 Respiratory Rate 18 18 18 Blood Pressure Blood Pressure [Right Arm] 112/52 L 111/56 L 107/47 L Blood Pressure Mean Blood Pressure Mean [Right Arm] 72 74 67 Pulse Oximetry 97 97 95 Oxygen Delivery Method Room Air 02/06/19 19:30 Temperature Temperature Source Sepsis Recent Fever Within 48 Hours Sepsis New/Unexplained Change in Mental Status Sepsis Action Taken by Nursing Pulse Rate Pulse Rate [Right Finger] 75 Respiratory Rate 18 Blood Pressure Blood Pressure [Right Arm] 125/56 L Blood Pressure Mean Blood Pressure Mean [Right Arm] 79 Pulse Oximetry 98 Oxygen Delivery Method Constitutional: Vital signs reviewed. Eyes: Pupils are equal round reactive to light. Conjunctiva are noninjected. ENT: Pharynx is clear without erythema or exudate. Mucous membranes are dry. Neck supple without meningeal signs. Respiratory: Clear to auscultation bilaterally. Breath sounds are equal bilaterally. Cardiovascular: Regular rate and rhythm. No rubs or gallops. GI: Swelling and tenderness to the mid-abdomen with fluctuance. No significant erythema. Bowel sounds are present. Musculoskeletal: No peripheral edema. No lower extremity tenderness. Integumentary: No cyanosis. Neurological: The patient is awake and alert. No focal deficits. Psychiatric: Normal affect. Course 1433: The patient was evaluated in room B4B, and a complete history and physical examination were performed. 1536: I checked on the patient. The patient was updated on their imaging and lab results. Surgery will be here to evaluate the patient after they are done in the OR. 1630: I discussed the patient's case with Dr. Obrien [facility] who states to admit the patient to medicine to have radiology guided drainage. I updated the patient on this treatment plan and she is agreeable. The patient declines any pain medication. 1640: I discussed the patient's case with Dr. Ochoa [facility] Hospitalist who requested that the patient be evaluated by surgery before admission. 1650: I discussed the patient's case with Dr. Khan-[facility] who states that he will just admit the patient. Dr. Khan states that he feels the fluid collection is a hematoma from the patient's fall in December and states that he does not think a fistula is there. He [facility] CT [facility], and both agree that no drainage is needed to be done at this time and Dr. Khan states that he will follow with the patient. He states that the patient should be admitted to medicine. 1715: [facility] patient for further hospitalization. Consultations Consultation #1: Dr. Obrien [facility] Time: 16:30 Consultation #2: Dr. Ochoa [facility] Hospitalist Time: 16:40 [facility]: [facility] Additional Consultation(s): Consultations 1715[facility] Administered Medications Discontinued Medications Piperacillin Sod/Tazobactam Sod (Zosyn) 4.5 gm in 120 mls @ 240 mls/hr IV NOW ONE Stop: 02/06/19 15:13 Last Infusion: 02/06/19 16:00 Dose: 0 mls/hr Documented by: [id number] Admin: 02/06/19 15:13 Dose: 240 mls/hr Documented by: [id number] Medical Decision Making Differential Diagnosis Differential diagnoses includes but is not limited to abscess, hematoma, seroma, anemia, fistula. Medical Records Attestation: I reviewed the patient's medical records. I did perform a limited focused review of portions of the patient's old chart on the electronic medical record. The patient had a CT of the abdomen and pelvis done on 02/06/19 which showed subcutaneous collection extending into the wall of the abdomen and gas in the collection. Home Medications Current Medication List: was personally reviewed by me Laboratory Data Attestation: I reviewed the patient's lab results. Result diagrams: 02/06/19 13:50 02/06/19 13:50 Lab Results 02/06/19 02/06/19 02/06/19 Range/Units 13:50 13:50 13:50 WBC 16.70 H (4.8-10.8) K/uL RBC 3.39 L (4.2-5.4) M/uL Hgb 9.3 L (12.0-16.0) g/dL Hct 28.2 L (37-47) % MCV 83.2 (80-100) fL MCH 27.4 (25-34) pg MCHC 33.0 (32-36) g/dL RDW Std Deviation 45.8 (36.4-46.3) fL RDW Coeff of Elliot 14.9 H (11.5-14.5) % Plt Count 527 H (130-400) K/uL MPV 8.3 (7.4-10.4) fL Immature Gran % (Auto) 0.9 % Neut % (Auto) 83.5 % Lymph % (Auto) 6.5 % Dooly % (Auto) 8.1 % Eos % (Auto) 0.8 % Baso % (Auto) 0.2 % Immature Gran # (Auto) 0.15 H (0.00-0.02) K/uL Neut # (Auto) 13.95 H (1.4-6.5) K/uL Lymph # (Auto) 1.08 L (1.2-3.4) K/uL D[place]y # (Auto) 1.36 H (0.11-0.59) K/uL Eos # (Auto) 0.13 (0-0.5) K/uL Baso # (Auto) 0.03 (0-0.2) K/uL Sodium 136 (136-145) mmol/L Potassium 4.3 (3.5-5.1) mmol/L Chloride 104 (98-107) mmol/L Carbon Dioxide 22 (21-32) mmol/L Anion Gap 10.0 (3-11) BUN 51 H (7-18) mg/dl Creatinine 1.49 H (0.6-1.2) mg/dl Est Cr Clr Drug Dosing 24.0 ml/min Est GFR ( Amer) 36.2 Est GFR (Non-Af Amer) 31.3 BUN/Creatinine Ratio 34.0 H (10-20) Glucose 92 (70-99) mg/dl Calcium 10.2 H (8.5-10.1) mg/dl Total Bilirubin 0.5 (0.2-1) mg/dl AST 28 (15-37) U/L ALT 41 (12-78) U/L Alkaline Phosphatase 161 H (45-117) U/L Total Protein 7.8 (6.4-8.2) gm/dl Albumin 2.3 L (3.4-5.0) gm/dl Globulin 5.5 H (2.5-4.0) gm/dl Albumin/Globulin Ratio 0.4 L (0.9-2) Lipase 88 Cancelled (73-393) U/L Blood Pressure Blood Pressure Findings: Normal blood pressure MDM Narrative I did evaluate the patient as noted above. Patient is presenting with abdominal pain with swelling for the past several days. She had a CT scan prior to arrival which demonstrates a large fluid collection with possible fistula and gas within the fluid collection. IV access was established. I did order blood cultures and treated patient with Zosyn IV after discussion with the ED pharmacist. I did order and review the patient's blood work as noted in the electronic medical record. Her white blood cell count is elevated. She is anemic with a hemoglobin 9.3. Creatinine is slightly elevated 1.5. I did discuss the test results with the patient and her family. She declines any pain medicine at this time. She was kept n.p.o. I did speak to the surgeon on-call who evaluated the patient. He reviewed the CT scan with Dr. munguia of radiology and stated that he felt like this was a hematoma and that there was no evidence of fistula. He recommended medical admission and he will consult. I did discuss the case with the hospitalist and top case assembler. Impression & Plan Abdominal wall fluid collections, Anemia Discharge Plan Visit Data Chief Complaint: Abdominal Pain Stated Complaint: ADB PAIN/HAD CT SCAN IN THE LAST HOUR ED Provider: Vladislav Sow Discharge Problem: Abdominal wall fluid collections, Anemia Patient Disposition: Admitted As Inpatient Forms Stand Alone Forms: My [facility] Prescriptions Prescriptions: No Action clopidogrel [Plavix] 75 mg tablet 75 mg PO DAILY Qty: 90 RF: 3 lisinopril 40 mg tablet 40 mg PO DAILY Qty: 90 RF: 3 omeprazole 20 mg tablet,delayed release (DR/EC) 20 mg PO DAILY Qty: 90 RF: 3 multivitamin Tablet 1 tab PO DAILY RF: 0 atorvastatin 20 mg Tablet 20 mg PO DAILY RF: 0 fluoxetine 10 mg Tablet 10 mg PO QAM RF: 0 metoprolol succinate 100 mg Tablet Extended Release 24 Hr 100 mg PO DAILY RF: 0 calcium carbonate 300 mg (750 mg) Tablet,Chewable 300 mg PO BID RF: 0 amlodipine 10 mg Tablet 10 mg PO DAILY RF: 0 fluoxetine 20 mg Tablet 20 mg PO QPM RF: 0 triamterene-hydrochlorothiazid 37.5-25 mg Tablet 1 tab PO DAILY RF: 0 Lactobacillus acidophilus [Acidophilus] Capsule 100 mg PO DAILY RF: 0 albuterol sulfate [Ventolin HFA] 90 mcg/actuation Hfa Aerosol Inhaler 1 - 2 puff INHALATION Q4 PRN (Reason: Shortness Of Breath Or Wheezing) RF: 0 potassium chloride 10 mEq Tablet,Er Particles/Crystals 10 meq PO DAILY RF: 0 cholecalciferol (vitamin D3) [Vitamin D3] 2,000 unit Capsule 2,000 unit PO DAILY RF: 0 omega 9-lxy-yht-fish oil [Fish Oil] 1,000 mg (120 mg-180 mg) Capsule 1 cap PO DAILY RF: 0 Breo Ellipta 100-25 mcg/dose Blister With Device 1 inh INHALATION DAILY RF: 0 levothyroxine 25 mcg tablet 25 mcg PO DAILY RF: 0 Referrals Referrals: Madyson Rodríguez MD [Primary Care Provider] - Discharge Problem: Anemia Qualifiers: Anemia type: unspecified type Qualified Code(s): D64.9 - Anemia, unspecified The scribe's documentation has been prepared under my direction and personally reviewed by me in its entirety. I confirm that the note above accurately reflects all work, treatment, procedures, and medical decision making performed by me.
[2019-02-06] MEDS ORDERED: ONDANSETRON INJ 2 MG/ML 2 ML VIAL IV PRN (20:41)
[2019-02-06] MEDS ORDERED: MAGNESIUM HYDROXIDE SUSP 30 ML UDC PO PRN (20:41)
[2019-02-06] MEDS ORDERED: ACETAMINOPHEN 325 MG TAB PO PRN (20:41)
[2019-02-06] MEDS: CALCIUM CARBONATE 1250MG TAB PO SCH (21:58)
[2019-02-06] MEDS: FLUOXETINE HCL 20 MG CAP PO SCH (21:58)
[2019-02-07] MEDS: LEVOTHYROXINE SODIUM 25 MCG TABLET PO SCH (05:50)
[2019-02-07 06:38] LABS: Hematocrit (blood only) 24.3 % (37-47); Mean Corpuscular Hgb Conc 32.9 g/dL (32-36); Mean Corpuscular Volume 82.7 fL (80-100); Mean Platelet Volume 8.2 fL (7.4-10.4); Platelet Count 451 K/uL (130-400); RDW Coefficient of Variation 15.1 % (11.5-14.5); RDW Standard Deviation 45.4 fL (36.4-46.3); Red Blood Count 2.94 M/uL (4.2-5.4); White Blood Count 12.84 K/uL (4.8-10.8)
[2019-02-07 06:58] LABS: Basophils # (auto) 0.03 K/uL (0-0.2); Basophils % (auto) 0.2 %; Eosinophils # (auto) 0.23 K/uL (0-0.5); Eosinophils % (auto) 1.8 %; Immature Granulocytes # (auto) 0.09 K/uL (0.00-0.02); Immature Granulocytes % (auto) 0.7 %; Lymphocytes # (auto) 1.05 K/uL (1.2-3.4); Lymphocytes % (auto) 8.2 %; Monocytes # (auto) 1.36 K/uL (0.11-0.59); Monocytes % (auto) 10.6 %; Neutrophils # (auto) 10.08 K/uL (1.4-6.5); Neutrophils % (auto) 78.5 %
[2019-02-07 07:16] LABS: BUN Creatinine Ratio 37.6 (10-20); Calcium 9.6 mg/dl (8.5-10.1); Creatinine Clr Calc Pharmacy 28.7 ml/min; Est GFR (African American) 43.9; Est GFR (Non-African American) 37.9; Potassium 3.8 mmol/L (3.5-5.1)
[2019-02-07] MEDS ORDERED: PIPERACILLIN/TAZOBACTAM 3.375 GM in DEXTROSE 5% 100 ML IV ONE (08:30)
[2019-02-07] MEDS ORDERED: LISINOPRIL 40 MG TAB PO SCH (09:00)
[2019-02-07] MEDS ORDERED: LACTOBACILLUS ACIDOPHILUS 100 MG PO SCH (09:00)
[2019-02-07] MEDS: CALCIUM CARBONATE 1250MG TAB PO SCH ×2 (09:00→20:41)
[2019-02-07] MEDS ORDERED: AMLODIPINE BESYLATE 5 MG TAB PO SCH (09:00)
[2019-02-07] MEDS: MULTIVITAMIN TAB PO SCH (09:01)
[2019-02-07] MEDS: TRIAMTERENE/HCTZ 37.5/25MG TAB PO SCH (09:01)
[2019-02-07] MEDS: OMEGA-3 (PURIFIED FISH OIL) 1 GM CAP PO SCH (09:01)
[2019-02-07] MEDS: ATORVASTATIN 20 MG TAB PO SCH (09:01)
[2019-02-07] MEDS: CHOLECALCIFEROL 1,000 UNITS TAB PO SCH (09:01)
[2019-02-07] MEDS: METOPROLOL SUCC 50MG EXT REL TAB PO SCH (09:02)
[2019-02-07] MEDS: PANTOprazole 40 MG TAB PO SCH (09:02)
[2019-02-07] MEDS: POTASSIUM CHLORIDE 10 MEQ TABCR PO SCH (09:03)
[2019-02-07] MEDS: FLUOXETINE HCL 10 MG CAP PO SCH (09:03)
--- NOTE | 2019-02-07 10:27 | Hospitalist Progress Note ---
Date of Service February 07, 2019 Assessment & Plan (1) Abdominal wall fluid collections: Fluid collection on CT reviewed by Dr. Cavanaugh with radiology. It is felt that this fluid collection is most likely a hematoma only and no concern for abscess. It is thought that this blood is older and therefore not able to be drained. There was suggestion of fistula as well, and this is thought to be very unlikely. No need for OR or IR intervention. Hgb 9.3 on admission, 8.0 this morning - will repeat at noon Was given a dose of zosyn in the ED for concern of possible abscess, however it appears this concern is no longer present. Will not continue at this time until cultures result Leukocytosis in the setting of recent stress reactions and possible fungal infection on abdomen some weeks ago, monitor Pt is on plavix for hx of CVA in 2001- hold for now (2) Anemia: Likely related to above Monitor (3) ARF (acute renal failure): In the setting of recent falls and decreased PO intake Holding on aggressive IVF - improving today Creat 1.27 (4) Back Pain: Recent coccyx fracture Monitor PT/OT (5) Hyperlipidemia: continue home atorvastatin (6) Depression: continue home fluoxetine (7) Asthma: continue home ventolin (8) HTN (hypertension): BP was toward the lower end on presentation Daughter states no true hypoTN or tachycardia noted on home measurements Continue current regimen, may want to de-escalate antihypertensive if she remains low normal Outpt plan was to monitor x2 weeks and decide at that time (9) GERD (gastroesophageal reflux disease): continue ppi (10) Hypokalemia: continue home potassium (11) DVT prophylaxis: SCDs Holding rx due to above Subjective Ms. Parra is eating breakfast, family is at bedside. She denies any pain or discomfort. She does think her belly is a little more distended than usual. Review of Systems Review of Systems: All systems reviewed & are unremarkable except as noted in HPI & below Physical Exam Physical Exam: General: no distress Eyes: normal inspection, PERLL Respiratory: chest non tender, clear to auscultation, normal breath sounds, no respiratory distress, no accessory muscle use Cardiac: regular rate and rhythm, no rub or gallop, no murmur, no edema, no jvd GI/: active bowel sounds, no abd pain or tenderness, soft, mild distention Extremities: normal range of motion, normal strength, non tender Neuro/Psych: alert and oriented x 3, normal mood and affect Skin: normal color, dry Results & Data Vital Signs (Past 12 Hours) Vital Signs Temp Pulse Pulse Resp BP BP Pulse Ox 02/07/19 07:24 36.5 C 83 18 112/66 97 02/07/19 04:28 36.7 C 77 20 111/69 97 02/07/19 00:36 78 02/06/19 23:00 36.8 C 77 20 109/69 96 PG Care Time/CCT Total # of Minutes Spent Total Time Spent with Patient: Total time spent is greater than 50% in coordination of care (as documented) at patient's floor/unit and/or counseling patient: (1) Anemia Anemia type: unspecified type Qualified Code(s): D64.9 - Anemia, unspecified
[2019-02-07 12:47] LABS: Hematocrit (blood only) 24.9 % (37-47); Hemoglobin 8.3 g/dL (12.0-16.0)
[2019-02-07] MEDS: FLUTICASONE/VILANTEROL INHALER INH SCH (13:13)
[2019-02-07] MEDS: PIPERACILLIN/TAZOBACTAM 3.375 GM in DEXTROSE 5% 100 ML IV SCH ×2 (13:15→20:42)
[2019-02-07] MEDS: FLUOXETINE HCL 20 MG CAP PO SCH (20:42)
[2019-02-08] MEDS: PIPERACILLIN/TAZOBACTAM 3.375 GM in DEXTROSE 5% 100 ML IV SCH ×3 (04:52→20:23)
[2019-02-08 05:39] LABS: Hematocrit (blood only) 23.6 % (37-47); Hemoglobin 7.8 g/dL (12.0-16.0); Mean Corpuscular Hgb Conc 33.1 g/dL (32-36); Mean Corpuscular Volume 81.4 fL (80-100); Mean Platelet Volume 7.5 fL (7.4-10.4); Platelet Count 353 K/uL (130-400); RDW Coefficient of Variation 15.2 % (11.5-14.5); RDW Standard Deviation 45.1 fL (36.4-46.3); White Blood Count 12.27 K/uL (4.8-10.8)
[2019-02-08] MEDS: LEVOTHYROXINE SODIUM 25 MCG TABLET PO SCH (05:43)
[2019-02-08 06:13] LABS: BUN Creatinine Ratio 30.4 (10-20); Calcium 9.2 mg/dl (8.5-10.1); Creatinine Clr Calc Pharmacy 25.5 ml/min; Est GFR (African American) 38.1; Est GFR (Non-African American) 32.8; Potassium 3.7 mmol/L (3.5-5.1)
[2019-02-08] MEDS: FERROUS SULFATE 325 MG TAB PO SCH (08:19)
[2019-02-08] MEDS: CHOLECALCIFEROL 1,000 UNITS TAB PO SCH (08:19)
[2019-02-08] MEDS: CALCIUM CARBONATE 1250MG TAB PO SCH ×2 (08:19→20:24)
[2019-02-08] MEDS: POTASSIUM CHLORIDE 10 MEQ TABCR PO SCH (08:19)
[2019-02-08] MEDS: FLUTICASONE/VILANTEROL INHALER INH SCH (08:19)
[2019-02-08] MEDS: MULTIVITAMIN TAB PO SCH (08:20)
[2019-02-08] MEDS: METOPROLOL SUCC 50MG EXT REL TAB PO SCH (08:20)
[2019-02-08] MEDS: OMEGA-3 (PURIFIED FISH OIL) 1 GM CAP PO SCH (08:20)
[2019-02-08] MEDS: PANTOprazole 40 MG TAB PO SCH (08:20)
[2019-02-08] MEDS: LISINOPRIL 20 MG TAB PO SCH (08:20)
[2019-02-08] MEDS: FLUOXETINE HCL 10 MG CAP PO SCH (08:20)
[2019-02-08] MEDS: TRIAMTERENE/HCTZ 37.5/25MG TAB PO SCH (08:20)
[2019-02-08] MEDS: ATORVASTATIN 20 MG TAB PO SCH (08:20)
[2019-02-08] MEDS ORDERED: SODIUM CHLORIDE 0.9% 250 ML IV PRN (11:50)
--- NOTE | 2019-02-08 14:43 | Hospitalist Progress Note ---
Date of Service February 08, 2019 Assessment & Plan (1) Abdominal wall fluid collections: Fluid collection on CT reviewed by Dr. Khan with radiology. It is felt that this fluid collection is most likely a hematoma only and no concern for abscess. It is thought that this blood is older and therefore not able to be drained. There was suggestion of fistula as well, and this is thought to be very unlikely. No need for OR or IR intervention. Hgb 9.3 on admission, 8.0 this morning - will repeat at noon Was given a dose of zosyn in the ED for concern of possible abscess, however it appears this concern is no longer present. Will continue at this time until cultures result Leukocytosis in the setting of recent stress reactions and possible fungal infection on abdomen some weeks ago, monitor Pt is on plavix for hx of CVA in 2001- hold for now (2) Anemia: secondary to acute blood loss Hgb 7.8 today - will replace with 2 units PRBCs Repeat CBC am (3) ARF (acute renal failure): With CKD III In the setting of recent falls and decreased PO intake Creat initially improved but increased slightly today - likely partially due to hypovolemia from blood loss/dehydration - PRBCs as above (4) Back Pain: Recent coccyx fracture Monitor PT/OT (5) Hyperlipidemia: continue home atorvastatin (6) Depression: continue home fluoxetine (7) Asthma: continue home ventolin (8) HTN (hypertension): BP was toward the lower end on presentation Discontinued amlodipine and decreased lisinopril - will hold altogether tomorrow if creat still low Outpt plan was to monitor x2 weeks and decide at that time (9) GERD (gastroesophageal reflux disease): continue ppi (10) Hypokalemia: continue home potassium (11) DVT prophylaxis: SCDs Holding rx due to above Subjective Ms. Parra is up to a chair. She has no pain though at times her coccyx is sore with different positions. Review of Systems Review of Systems: All systems reviewed & are unremarkable except as noted in HPI & below Results & Data Vital Signs (Past 12 Hours) Vital Signs Temp Pulse Pulse Resp BP BP BP 02/08/19 12:54 36.6 C 68 16 111/63 02/08/19 12:39 36.8 C 67 18 107/63 02/08/19 12:22 36.7 C 78 18 108/69 02/08/19 12:05 36.7 C 74 16 95/57 L 02/08/19 07:14 68 02/08/19 07:10 36.8 C 70 16 106/65 02/08/19 03:10 36.6 C 72 18 121/66 Pulse Ox 02/08/19 12:54 94 02/08/19 12:39 94 02/08/19 12:22 02/08/19 12:05 96 02/08/19 07:14 02/08/19 07:10 95 02/08/19 03:10 95 PG Care Time/CCT Total # of Minutes Spent Total Time Spent with Patient: Total time spent is greater than 50% in coordination of care (as documented) at patient's floor/unit and/or counseling patient: (1) Anemia Anemia type: unspecified type Qualified Code(s): D64.9 - Anemia, unspecified
[2019-02-08] MEDS: FLUOXETINE HCL 20 MG CAP PO SCH (20:24)
[2019-02-09] MEDS: LEVOTHYROXINE SODIUM 25 MCG TABLET PO SCH (04:55)
[2019-02-09] MEDS: PIPERACILLIN/TAZOBACTAM 3.375 GM in DEXTROSE 5% 100 ML IV SCH (04:56)
[2019-02-09 06:04] LABS: Hematocrit (blood only) 28.9 % (37-47); Hemoglobin 9.7 g/dL (12.0-16.0); Mean Corpuscular Hgb Conc 33.6 g/dL (32-36); Mean Corpuscular Volume 82.6 fL (80-100); Platelet Count 400 K/uL (130-400); RDW Coefficient of Variation 15.5 % (11.5-14.5); White Blood Count 13.26 K/uL (4.8-10.8)
[2019-02-09 06:53] LABS: BUN Creatinine Ratio 28.1 (10-20); Calcium 9.3 mg/dl (8.5-10.1); Creatinine Clr Calc Pharmacy 29.7 ml/min; Est GFR (African American) 44.8; Est GFR (Non-African American) 38.6; Potassium 3.3 mmol/L (3.5-5.1)
[2019-02-09] MEDS: ATORVASTATIN 20 MG TAB PO SCH (08:20)
[2019-02-09] MEDS: MULTIVITAMIN TAB PO SCH (08:21)
[2019-02-09] MEDS: PANTOprazole 40 MG TAB PO SCH (08:21)
[2019-02-09] MEDS: METOPROLOL SUCC 50MG EXT REL TAB PO SCH (08:21)
[2019-02-09] MEDS: POTASSIUM CHLORIDE 10 MEQ TABCR PO SCH (08:21)
[2019-02-09] MEDS: FLUOXETINE HCL 10 MG CAP PO SCH (08:22)
[2019-02-09] MEDS: CHOLECALCIFEROL 1,000 UNITS TAB PO SCH (08:22)
[2019-02-09] MEDS: TRIAMTERENE/HCTZ 37.5/25MG TAB PO SCH (08:22)
[2019-02-09] MEDS: OMEGA-3 (PURIFIED FISH OIL) 1 GM CAP PO SCH (08:22)
[2019-02-09] MEDS: FERROUS SULFATE 325 MG TAB PO SCH (08:22)
[2019-02-09] MEDS: CALCIUM CARBONATE 1250MG TAB PO SCH ×2 (08:22→21:18)
[2019-02-09] MEDS: FLUTICASONE/VILANTEROL INHALER INH SCH (08:23)
[2019-02-09] MEDS ORDERED: POTASSIUM CHLORIDE 20 MEQ TABCR PO ONE (08:30)
--- NOTE | 2019-02-09 09:53 | Hospitalist Progress Note ---
Date of Service February 09, 2019 Assessment & Plan (1) Abdominal wall fluid collections: Fluid collection on CT reviewed by Dr. Khan with radiology. It is felt that this fluid collection is most likely a hematoma only and no concern for abscess. It is thought that this blood is older and therefore not able to be drained. There was suggestion of fistula as well, and this is thought to be very unlikely. No need for OR or IR intervention. Hgb 9.3 on admission, dropped as low as 7.8 02/08 Was given a dose of zosyn in the ED for concern of possible abscess, however it appears this concern is no longer present. BC and UC negative so will dc antibiotics Leukocytosis in the setting of recent stress reactions, unclear if this truly represents infectious etiology Pt is on plavix for hx of CVA in 2001- continue to hold for now (2) Anemia: secondary to acute blood loss Hgb 7.8 01/29 replaced with 2 units PRBCs Repeat CBC am - if hgb drops again will need to re-involve surgery (3) ARF (acute renal failure): With CKD III In the setting of recent falls and decreased PO intake Creat improved following PRBCs Will hold lisinopril another day, blood pressures have been stable (4) Back Pain: Recent coccyx fracture Monitor PT/OT (5) Hyperlipidemia: continue home atorvastatin (6) Depression: continue home fluoxetine (7) Asthma: continue home ventolin (8) HTN (hypertension): BP was toward the lower end on presentation Discontinued amlodipine and decreased lisinopril - hold lisinopril as above (9) GERD (gastroesophageal reflux disease): continue ppi (10) Hypokalemia: continue home potassium (11) DVT prophylaxis: SCDs Holding rx due to above Subjective Ms. Parra is feeling a bit weak and tired but is in good spirits. Daughter an son in law bedside and I spent time answering their questions. Patient denies any pain or other more specific complaints Review of Systems Review of Systems: All systems reviewed & are unremarkable except as noted in HPI & below Physical Exam Physical Exam: General: no distress Eyes: normal inspection, PERLL Respiratory: chest non tender, clear to auscultation, normal breath sounds, no respiratory distress, no accessory muscle use Cardiac: regular rate and rhythm, no rub or gallop, no murmur, no edema, no jvd GI/: active bowel sounds, no abd pain or tenderness, soft, non distended Extremities: normal range of motion, normal strength, non tender Neuro/Psych: alert and oriented x 3, normal mood and affect Skin: normal color, dry Results & Data Vital Signs (Past 12 Hours) Vital Signs Temp Pulse Pulse Pulse Resp BP Pulse Ox 02/09/19 07:44 66 02/09/19 07:28 36.7 C 83 20 120/68 98 02/09/19 04:00 37.0 C 70 17 117/69 94 02/09/19 00:05 68 02/08/19 23:00 37.0 C 75 18 118/70 94 PG Care Time/CCT Total # of Minutes Spent Total Time Spent with Patient: Total time spent is greater than 50% in coordination of care (as documented) at patient's floor/unit and/or counseling patient: (1) Anemia Anemia type: unspecified type Qualified Code(s): D64.9 - Anemia, unspecified
[2019-02-09] MEDS: FLUOXETINE HCL 20 MG CAP PO SCH (21:18)
[2019-02-10] MEDS: LEVOTHYROXINE SODIUM 25 MCG TABLET PO SCH (05:44)
[2019-02-10 06:21] LABS: Hematocrit (blood only) 28.7 % (37-47); Hemoglobin 9.6 g/dL (12.0-16.0); Mean Corpuscular Hgb Conc 33.4 g/dL (32-36); Mean Corpuscular Volume 83.4 fL (80-100); Mean Platelet Volume 7.7 fL (7.4-10.4); Platelet Count 366 K/uL (130-400); RDW Coefficient of Variation 15.7 % (11.5-14.5); Red Blood Count 3.44 M/uL (4.2-5.4); White Blood Count 18.43 K/uL (4.8-10.8)
[2019-02-10 07:00] LABS: BUN Creatinine Ratio 30.7 (10-20); Calcium 9.9 mg/dl (8.5-10.1); Creatinine Clr Calc Pharmacy 30.1 ml/min; Est GFR (African American) 46.6; Est GFR (Non-African American) 40.2; Potassium 3.8 mmol/L (3.5-5.1)
--- NOTE | 2019-02-10 07:30 | Hospitalist Progress Note ---
Date of Service February 10, 2019 Assessment & Plan (1) Abdominal wall fluid collections: Fluid collection on CT reviewed by Dr. Khan with radiology. It is felt that this fluid collection is most likely a hematoma only and no concern for abscess. It is thought that this blood is older and therefore not able to be drained. There was suggestion of fistula as well, and this is thought to be very unlikely. No need for OR or IR intervention. 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, restarted antibiotic, curbsided surgery and feel a two week course will be recommended Pt is on plavix for hx of CVA in 2001- continue to hold in case procedure is required (2) Anemia: secondary to acute blood loss Hgb 7.8 01/29 replaced with 2 units PRBCs hgb has been stable (3) ARF (acute renal failure): With CKD III In the setting of recent falls and decreased PO intake resovled Will continue to hold lisinopril (4) Back Pain: Recent coccyx fracture Monitor PT/OT (5) Hyperlipidemia: continue home atorvastatin (6) Depression: remians on fluoxetine (7) Asthma: stable on ventolin (8) HTN (hypertension): BP was toward the lower end on presentation Discontinued amlodipine and held lisinopril as above (9) GERD (gastroesophageal reflux disease): continue ppi (10) Hypokalemia: continue home potassium (11) DVT prophylaxis: SCDs Holding rx due to above Pt typically is on home bipap will order Subjective pt is fatigued and tired, she has no focal abdominal pain, she is not with fever or diarrhea family is at the bedside and updated Review of Systems Review of Systems: ROS: Patient appears tired and fatigued No double vision blurry vision No problems with speech or swallowing No palpitations, chest pain or pressure No Wheezing or breathing issues No abdominal pain nausea vomiting diarrhea no focal tenderness No burning urine urine frequency or changes in color No focal joint pain or muscle pain No skin rashes or oral lesions No unusual bruising or bleeding No focused back pain or numbness or loss of strength No changes in memory or confusion Physical Exam Physical Exam: The patient appeared well nourished and normally developed. Vital signs as documented. Head exam is unremarkable. normocephalic, atraumatic Neck is without jugular venous distension, thyromegaly, or lymphademopathy Lungs are clear to auscultation and percussion. Cardiac exam reveals Rhythm is regular. First and second heart sounds normal. Abdominal exam reveals normal bowel sounds, distention no fluctuance no focal tenderness Extremities are nonedematous and both pedal pulses are present Neurologic exam is A&Ox3, she falls asleep easily, no focal deficits, strength is diminished bilaterally Psychologically seems depressed Skin is warm Dry without bruises or lesions Results & Data Vital Signs (Past 12 Hours) Vital Signs Temp Pulse Pulse Pulse Resp BP Pulse Ox 02/10/19 07:15 68 02/10/19 06:40 36.6 C 72 20 113/68 96 02/10/19 04:00 36.4 C L 75 18 122/71 97 02/10/19 00:55 78 02/09/19 23:00 37.1 C 82 19 119/69 94 PG Care Time/CCT Total # of Minutes Spent Total Time Spent with Patient: Total time spent is greater than 50% in coordination of care (as documented) at patient's floor/unit and/or counseling patient: (1) Anemia Anemia type: unspecified type Qualified Code(s): D64.9 - Anemia, unspecified
[2019-02-10] MEDS: FLUTICASONE/VILANTEROL INHALER INH SCH (08:43)
[2019-02-10] MEDS ORDERED: IOVERSOL 100ml IV PRN (10:07)
--- NOTE | 2019-02-10 11:25 | CT Scan Report ---
CT SCAN OF THE ABDOMEN AND PELVIS WITH IV CONTRAST CLINICAL HISTORY: Generalized abdominal pain. COMPARISON STUDY: Abdominal CT dated 02/06/2019. TECHNIQUE: Following the IV administration of 92 cc of Optiray 320, CT scan of the abdomen and pelvi s is performed from the lung bases to the proximal femora. Images are reviewed in the axial, sagittal , and coronal planes. IV contrast was administered without complication. Oral contrast was utilized. A dose lowering technique was utilized adhering to the principles of ALARA. CT DOSE: 459.44 mGy.cm FINDINGS: Lung bases: The heart is normal in size and without pericardial effusion. The coronary arteries are d ensely calcified. There is a small hiatal hernia. There is bibasilar scarring/atelectasis. Small fat- containing Bochdalek hernias are seen at both lung bases. No airspace consolidation or pleural effusi on is identified. Liver: The contrast-enhanced liver is normal in size, contour, and attenuation. There is mild central intrahepatic biliary ductal dilatation. The hepatic veins and portal veins are patent. Gallbladder: Surgically absent noting clips in the gallbladder fossa. Spleen: Normal in size and attenuation. There is a 14 mm peripherally calcified splenic artery aneury sm seen on image #96. Pancreas: Moderately atrophic and grossly unremarkable. Adrenal glands: Unremarkable. Kidneys: The contrast enhanced kidneys are atrophic and without hydronephrosis. Cortical scarring is seen in the upper pole of the right kidney. The kidneys enhance symmetrically. A 7.5 cm minimally com plex cystic lesion is again seen arising from the lower pole of the left kidney. A 1.5 cm cyst is pre sent in the left upper pole. A 2.4 cm nonobstructing calculus is present in the right upper pole. Abdominal vasculature: The abdominal aorta is normal in course and caliber noting advanced atheroscle rotic calcification. Bowel: Enteric contrast reaches the distal colon. No bowel obstruction is seen. There is mild to mode rate colonic diverticulosis without CT evidence of acute diverticulitis. The appendix is well-visual ized and normal. Abdominal wall and peritoneum: Again seen is a large low-attenuation collection within the ventral ab dominal wall on image #[id number]. This measures approximately 18 x 7.5 x 25 cm in aggregate dimension. This has decreased in complexity as compared to 02/06/2019. Foci of increased attenuation are again seen w ithin the inferior aspect of the collection (image #24). Small foci of gas are again noted within the collection, and have also decreased from previous. Postoperative change is suggested along the ventr al abdominal wall. An intraperitoneal component of the collection is again seen deep to the hernia me sh, best image on image #239. This measures approximately 7 x 1.5 x 8 cm. There is mild wall thickeni ng is collection with internal gas. This closely approximates the anterior aspect of the transverse c olon, and a fistulous connection is suggested on axial image #222. No intraperitoneal free air is see n, and there is no abdominal ascites. Lymphadenopathy: None. Pelvic viscera: The bladder is normal as visualized. The uterus is surgically absent. No adnexal lesi on is seen. Skeletal structures: The skeletal structures are osteopenic. There is moderate lumbosacral spondylosi s. Angulated fractures of the inferior sacrum are again noted. No lytic or blastic lesions are seen. IMPRESSION: 1. Again seen is a large collection within the ventral abdominal wall. This has decreased in complexi ty as compared to 02/06/2019, and the small foci of internal gas have also decreased from previous. Th is likely represents a large seroma/hematoma. Superimposed infection would be impossible to exclude a nd clinical correlation will be essential. 2. There is evidence of previous ventral hernia repair. An intraperitoneal component of the collectio n is again seen deep to the hernia mesh and this has not appreciably changed from previous. 3. Suspect a fistulous connection between the intraperitoneal component of the collection and the sub jacent transverse colon. 4. There is no bowel obstruction. 5. Mild to moderate colonic diverticulosis without CT evidence of acute diverticulitis. 6. There is a large nonobstructing right renal calculus. 7. There is a 7.5 cm minimally complex cystic lesion arising from the lower pole of left kidney. No e nhancing elements are identified and this is of low suspicion. Consider precautionary ultrasound foll ow-up in 6 months time. 8. Additional findings as above. Electronically signed by: Justin Flores M.D. 02/10/2019 11:22 AM
[2019-02-10] MEDS: ATORVASTATIN 20 MG TAB PO SCH (11:33)
[2019-02-10] MEDS: MULTIVITAMIN TAB PO SCH (11:33)
[2019-02-10] MEDS: CHOLECALCIFEROL 1,000 UNITS TAB PO SCH (11:33)
[2019-02-10] MEDS: PANTOprazole 40 MG TAB PO SCH (11:33)
[2019-02-10] MEDS: FLUOXETINE HCL 10 MG CAP PO SCH (11:34)
[2019-02-10] MEDS: CALCIUM CARBONATE 1250MG TAB PO SCH ×2 (11:34→21:42)
[2019-02-10] MEDS: OMEGA-3 (PURIFIED FISH OIL) 1 GM CAP PO SCH (11:34)
[2019-02-10] MEDS: FERROUS SULFATE 325 MG TAB PO SCH (11:34)
[2019-02-10] MEDS: POTASSIUM CHLORIDE 10 MEQ TABCR PO SCH (11:34)
[2019-02-10] MEDS: TRIAMTERENE/HCTZ 37.5/25MG TAB PO SCH (11:35)
[2019-02-10] MEDS: METOPROLOL SUCC 50MG EXT REL TAB PO SCH (11:58)
[2019-02-10] MEDS ORDERED: PIPERACILL/TAZOBAC CONSULT ACTIVE PRN (14:49)
[2019-02-10] MEDS ORDERED: PIPERACILLIN/TAZOBACTAM 3.375 GM in DEXTROSE 5% 100 ML IV STA (14:59)
[2019-02-10] MEDS: PIPERACILLIN/TAZOBACTAM 3.375 GM in DEXTROSE 5% 100 ML IV SCH (21:41)
[2019-02-10] MEDS: FLUOXETINE HCL 20 MG CAP PO SCH (21:42)
[2019-02-11] MEDS: PIPERACILLIN/TAZOBACTAM 3.375 GM in DEXTROSE 5% 100 ML IV SCH ×3 (04:15→21:42)
[2019-02-11] MEDS: LEVOTHYROXINE SODIUM 25 MCG TABLET PO SCH (05:47)
[2019-02-11 06:42] LABS: Hemoglobin 9.3 g/dL (12.0-16.0); Mean Corpuscular Hgb Conc 33.2 g/dL (32-36); Mean Corpuscular Volume 83.8 fL (80-100); Platelet Count 383 K/uL (130-400); RDW Coefficient of Variation 16.1 % (11.5-14.5); RDW Standard Deviation 49.4 fL (36.4-46.3); Red Blood Count 3.34 M/uL (4.2-5.4); White Blood Count 18.64 K/uL (4.8-10.8)
[2019-02-11 07:18] LABS: Creatinine Clr Calc Pharmacy 32.2 ml/min; Est GFR (African American) 50.1; Est GFR (Non-African American) 43.2
[2019-02-11] MEDS: FERROUS SULFATE 325 MG TAB PO SCH (08:51)
[2019-02-11] MEDS: CALCIUM CARBONATE 1250MG TAB PO SCH ×2 (08:51→21:44)
[2019-02-11] MEDS: OMEGA-3 (PURIFIED FISH OIL) 1 GM CAP PO SCH (08:51)
[2019-02-11] MEDS: FLUTICASONE/VILANTEROL INHALER INH SCH (08:51)
[2019-02-11] MEDS: POTASSIUM CHLORIDE 10 MEQ TABCR PO SCH (08:51)
[2019-02-11] MEDS: TRIAMTERENE/HCTZ 37.5/25MG TAB PO SCH (08:51)
[2019-02-11] MEDS: ATORVASTATIN 20 MG TAB PO SCH (08:52)
[2019-02-11] MEDS: CHOLECALCIFEROL 1,000 UNITS TAB PO SCH (08:52)
[2019-02-11] MEDS: MULTIVITAMIN TAB PO SCH (08:52)
[2019-02-11] MEDS: PANTOprazole 40 MG TAB PO SCH (08:52)
[2019-02-11] MEDS: FLUOXETINE HCL 10 MG CAP PO SCH (08:52)
[2019-02-11] MEDS: METOPROLOL SUCC 50MG EXT REL TAB PO SCH (08:52)
--- NOTE | 2019-02-11 12:51 | Hospitalist Progress Note ---
Date of Service February 11, 2019 Assessment & Plan (1) Abdominal wall fluid collections: Fluid collection on CT reviewed by Dr. Khan with radiology on presentation. It was initially felt that this fluid collection is most likely a hematoma only and no concern for abscess. It is thought that this blood is older and therefore not able to be drained. There was suggestion of fistula as well, subsequently antibiotic's were held and on 629 her white blood cell count promptly went from 13,000 18,000. Repeat CT scan was undertaken with consistent persistent concern for a enterocutaneous fistula. Review of the CAT scans with surgeon consulting it architect felt that this is likely the culprit of her leukocytosis and recommend antibiotic for 14 days. Zosyn was reinstituted on 02/10 Hgb 9.3 on admission, dropped as low as 7.8 02/08 Transfuse 2 unit packed red blood cells hemoglobin has been stable since that time Pt is on plavix for hx of CVA in 2001- continue to hold in case procedure is required (2) Anemia: secondary to acute blood loss Hgb 7.8 01/29 replaced with 2 units PRBCs hgb remains stable (3) ARF (acute renal failure): With CKD III In the setting of recent falls and decreased PO intake resolved Will continue to hold lisinopril (4) Back Pain: Recent coccyx fracture makes sitting more of a challenge patient will continue to be involved in PT OT and ambulate as much as she is able to Monitor PT/OT (5) Hyperlipidemia: continue home atorvastatin (6) Depression: remains on fluoxetine (7) Asthma: stable on ventolin (8) HTN (hypertension): BP was toward the lower end on presentation Discontinued amlodipine and held lisinopril blood pressure is improving (9) GERD (gastroesophageal reflux disease): continue ppi (10) Hypokalemia: continue home potassium (11) DVT prophylaxis: SCDs Holding rx due to above Pt typically is on home bipap did have improved sleep while using BiPAP on 02/01 Subjective pt feels improved, she is more awake and less confused, no abdominal pain. family is at the bedside and was updated Review of Systems Review of Systems: ROS: well nourished well developed. No double vision blurry vision No problems with speech or swallowing No palpitations, chest pain or pressure No Wheezing or breathing issues No abdominal pain nausea vomiting diarrhea No burning urine urine frequency or changes in color No focal joint pain or muscle pain No skin rashes or oral lesions No unusual bruising or bleeding No focused back pain or numbness or loss of strength No changes in memory or confusion Physical Exam Physical Exam: The patient appeared chronically ill Vital signs as documented. Head exam is unremarkable. normocephalic, atraumatic Neck is without jugular venous distension, thyromegaly, or lymphademopathy Lungs are rales at the lower bases consistent with atelectasis Cardiac exam reveals Rhythm is regular. Abdominal exam reveals normal bowel sounds, has some fullness in the mid abdomen no fluctuance Extremities are mildly edematous and both pedal pulses are present Neurologic exam is A&Ox2, no focal deficits, strength is equal bilateral Psychologically seems neither anxious or depressed Skin is warm Dry Results & Data Vital Signs (Past 12 Hours) Vital Signs Temp Pulse Pulse Resp BP Pulse Ox 02/11/19 11:37 36.7 C 68 18 120/60 94 02/11/19 07:39 66 02/11/19 07:37 36.7 C 69 20 114/69 95 02/11/19 03:57 36.5 C 69 18 118/70 96 02/11/19 01:06 70 PG Care Time/CCT Total # of Minutes Spent Total Time Spent with Patient: Total time spent is greater than 50% in coordination of care (as documented) at patient's floor/unit and/or counseling patient: (1) Anemia Anemia type: unspecified type Qualified Code(s): D64.9 - Anemia, unspecified
[2019-02-11] MEDS ORDERED: ASPIRIN 81 MG CHEW PO STA ×2 (19:42→21:12)
--- NOTE | 2019-02-11 19:42 | Progress Note ---
Date of Service February 11, 2019 At 1922 this evening received a text page from the patient's nurse stating that the patient's family at bedside was concerned that the patient was showing "strokelike symptoms". Initial report was that the patient was speaking well, smiling symmetrically, and had equal strength in bilateral arms. However, concern was that the left side of her mouth had been drooping. Saw patient at bedside at 1925. Patient is awake, alert, pleasantly conversational, her mouth seems dry, and she has some questionable slurred speech. Symmetrical smile. Strength 5/5 in all extremities. Distal sensation grossly intact and equal bilaterally. She states overall that she feels well, does not feel like she has any facial droop or focal neuro deficits, and denies any headache. She says that her abdomen is still a bit sore. Patient's family is at bedside. They stated that when they left the hospital around 4 PM that the patient was speaking much clearer and had no facial droop. They said that they returned around 7 PM and noticed that she had some transient left-sided facial droop as well as current slurred speech. Discussed case with Dr. Shelley on the phone at approximately 1935. Elected to call a stroke alert which went overhead around 1938. Plan: - Ordered CT head noncontrast as well as CTA head and neck. Cr 1.14. - Ordered aspirin 324 mg p.o. chewable stat if no evidence of bleed on CT. - Patient will be transferred to the ICU for further evaluation and care. Discussed all of the above in near real-time with Dr. Shelley. Nathan Paz, PGY3 Overnight call Results & Data Vital Signs (Past 12 Hours) Vital Signs Temp Pulse Pulse Resp BP BP Pulse Ox 02/11/19 19:00 36.7 C 75 20 152/70 H 95 02/11/19 16:54 70 02/11/19 15:18 36.7 C 72 20 103/63 93 02/11/19 11:37 36.7 C 68 18 120/60 94
[2019-02-11] MEDS ORDERED: OPTIRAY 320 125ml IV PRN (19:52)
--- NOTE | 2019-02-11 20:19 | CT Scan Report ---
CT head/brain wo con CLINICAL HISTORY: slurred speech POSSIBLE STROKE COMPARISON STUDY: 12/26/2018 TECHNIQUE: Axial CT of the brain is performed from the vertex to the skull base. IV contrast was not administered for this examination. A dose lowering technique was utilized adhering to the principles of ALARA. CT DOSE: 1238.09 mGy.cm FINDINGS: No intra or extra-axial mass lesions are visualized. There is no CT evidence of acute cortical infarc tion. There is no evidence of midline shift. There is no acute hemorrhage. No calvarial fractures ar e visualized. There are extensive white matter hypodensities likely on a small vessel basis. There is an old left b warren ganglial lacunar infarct. There is dilated bifrontal extra-axial space. This remains stable. Thi s could be secondary to dilated subarachnoid space, or chronic subdural hygromas. There is no evidence of pathologic ventricular dilatation. There is no evidence of acute sinusitis. There is a stable calcification abutting the outer table of the frontal bone in the midline IMPRESSION: 1. No acute intracranial findings 2. Extensive small vessel disease 3. 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 02/11/2019 8:18 PM
--- NOTE | 2019-02-11 20:24 | CT Scan Report ---
CT angio neck with con CLINICAL HISTORY: slurred speech POSSIBLE ACUTE STROKE COMPARISON STUDY: No previous studies for comparison. TECHNIQUE: CT angiography was performed from the aortic arch to the skull base. MIP imaging was perfo rmed. The patient was scanned in a dynamic helical fashion during intravenous administration of 119 c c of Optiray 320. A dose lowering technique was utilized adhering to the principles of ALARA. CT DOSE: Technique: CT angiogram of the carotid and vertebral arteries was obtained using intravenous contrast and 3-D reconstruction. NASCET criteria was utilized. Findings: The right carotid revealed no evidence of aneurysm and no evidence of dissection. There is no evidenc e of hemodynamic significant stenosis. There are atheromatous changes present within the proximal rig ht internal carotid with less than 20% diameter narrowing. The left carotid revealed no evidence of hemodynamic significant stenosis. There is no evidence of an eurysm. There is no evidence of dissection. There is a dominant left vertebral artery. There is a diminutive right vertebral artery. There is no evidence of focal vertebral artery stenosis. There is no evidence of dissection. There is a diminutiv e basilar artery. There is marked tortuosity of the arch vessels. IMPRESSION: No evidence of hemodynamically significant carotid or vertebral artery stenosis. No evidence of disse ction. Electronically signed by: Rosalio Childs M.D. 02/11/2019 8:23 PM
--- NOTE | 2019-02-11 20:27 | CT Scan Report ---
CT angio head w con CLINICAL HISTORY: slurred speech POSSIBLE ACUTE STROKE TECHNIQUE: CT angiography of the head was performed in a dynamic helical fashion during intravenous a dministration of 119 cc of Optiray 320. MIP imaging was performed. A dose lowering technique was util ized adhering to the principles of ALARA. CT DOSE: COMPARISON STUDY: No previous studies for comparison. FINDINGS: There are no lesion suspicious for aneurysm. There are no major intracranial branch occlusi ons. The dural venous sinuses appear patent. Note is made of a diminutive basilar artery. There are no pathologically enhancing masses. There are bifrontal subdural hygromas versus dilated subarachnoid space. IMPRESSION: 1. No evidence of aneurysm. 2. No evidence of major intracranial branch occlusion or major intracranial stenosis. Electronically signed by: Rosalio Childs M.D. 02/11/2019 8:25 PM
[2019-02-11] MEDS: SODIUM CHLORIDE 0.9% 1000ML 1,000 ML IV SCH (21:43)
[2019-02-11] MEDS: FLUOXETINE HCL 20 MG CAP PO SCH (21:45)
[2019-02-12] MEDS: PIPERACILLIN/TAZOBACTAM 3.375 GM in DEXTROSE 5% 100 ML IV SCH ×3 (05:25→20:33)
[2019-02-12 05:38] LABS: Creatinine Clr Calc Pharmacy 29.3 ml/min; Est GFR (African American) 44.8; Est GFR (Non-African American) 38.6
[2019-02-12] MEDS: LEVOTHYROXINE SODIUM 25 MCG TABLET PO SCH (06:03)
--- NOTE | 2019-02-12 07:47 | Magnetic Resonance Report ---
Brain MRI WITHOUT CONTRAST HISTORY: ? lacunar stroke, acute slurred speech TECHNIQUE: Multiplanar multisequence MRI of the brain was performed without the use of contrast. COMPARISON STUDY: Head CT 02/11/2019. FINDINGS: There is no mass, hematoma, midline shift, or acute infarct. The paranasal sinuses are dinesh r. The mastoid air cells are clear. The ventricles and sulci demonstrate mild age-related involutiona l changes. Scattered foci of T2 hyperintensity seen within the periventricular and subcortical white matter are nonspecific but suggestive of mild microvascular ischemic changes. The major vascular flow voids at the skull base are well-maintained. Bilateral basal ganglia lacunar infarcts are again note d. Bifrontal CSF intensity fluid collections remain unchanged. These measure up to 1.3 cm in thicknes s and result in mild mass effect on the frontal lobes. This favors chronic subdural hygromas. IMPRESSION: No significant change compared to the prior study. No acute intracranial abnormality. Chronic bifront al subdural hygromas are again noted. Electronically signed by: Junior Starr M.D. 02/12/2019 7:46 AM
[2019-02-12] MEDS: FERROUS SULFATE 325 MG TAB PO SCH (08:25)
[2019-02-12] MEDS: FLUOXETINE HCL 10 MG CAP PO SCH (08:25)
[2019-02-12] MEDS: TRIAMTERENE/HCTZ 37.5/25MG TAB PO SCH (08:25)
[2019-02-12] MEDS: POTASSIUM CHLORIDE 10 MEQ TABCR PO SCH (08:26)
[2019-02-12] MEDS: CALCIUM CARBONATE 1250MG TAB PO SCH ×2 (08:26→20:34)
[2019-02-12] MEDS: ATORVASTATIN 20 MG TAB PO SCH (08:26)
[2019-02-12] MEDS: OMEGA-3 (PURIFIED FISH OIL) 1 GM CAP PO SCH (08:26)
[2019-02-12] MEDS: METOPROLOL SUCC 50MG EXT REL TAB PO SCH (08:27)
[2019-02-12] MEDS: MULTIVITAMIN TAB PO SCH (08:27)
[2019-02-12] MEDS: CHOLECALCIFEROL 1,000 UNITS TAB PO SCH (08:27)
[2019-02-12] MEDS: PANTOprazole 40 MG TAB PO SCH (08:28)
[2019-02-12] MEDS: FLUTICASONE/VILANTEROL INHALER INH SCH (08:29)
--- NOTE | 2019-02-12 08:47 | Neurology Consultation ---
Date of Consultation February 12, 2019 Assessment & Plan (1) Transient ischemic attack: Patient had an episode yesterday of transient dysarthria and left facial droop. This was not really witnessed by clinical staff but noted by family. Stroke alert evaluation revealed no new issues on CT scan of the head. CTA of the head neck showed no significant stenoses or vascular anomalies. MRI of the brain showed no acute stroke but did show old diffuse moderate small vessel ischemia, moderate generalized atrophy, and small subdural hygromas. Is hygromas are likely secondary to her previous head trauma earlier in the month from falls. She is at fall risk but clearly she has cerebral vascular risks (off Plavix for 6 days). Interestingly she had been doing quite well on Plavix for years. On examination she has no focal neurologic findings, meningeal signs, or encephalopathy. When she is fatigued or stressed some of her older symptoms may come out (like a facial droop, some weakness, or slurred speech). These symptoms are temporary and improved when she is less fatigued or stressed. For now she is on 81 milligram aspirin tablet daily. Risk factors for stroke include advanced age, history of hypertension, and more recently significant anemia. She had 2 significant falls recently. (2) Chronic cerebral ischemia: Patient has old small vessel ischemic change. She has no history or radiographic evidence for large vessel disease and she has no cardiac issues or dysrhythmias. She was stable on antiplatelet medication Plavix. (3) Tremor: Patient has essential tremor which is mild currently there is no need for additional testing or treatment for this problem. She has no signs of Parkinson's disease. (4) Depression: Patient has a history of depression which is stable on fluoxetine. Recommendations: 1. Keep aspirin 81 milligrams daily for now. Consider switching back to Plavix after her hospitalization which could be done as an outpatient. 2. Treat anemia as best as possible as this will help reduce TIA/stroke risk. 3. I realize that she is a significant fall risk but I believe the benefits of the antiplatelet medication outweigh the fall risk/bleeding risk. 4. Avoid hypotension as you are doing as this gives her stroke risk as well. 5. Subdural hygromas do not need any additional treatment but a follow-up CT in future to make sure there resolved would be reasonable (as an outpatient). Otherwise, I have no significant testing or treatment recommendations to make further. Contact me if I can be of additional assistance. Overall, I spent a total of 75 minutes with this case including review of records, review of MRI films, direct evaluation the patient at bedside, and discussion of the case with the patient at bedside, her daughter at bedside, nursing staff at bedside, and Dr. Cardoso including differential diagnosis and treatment options. History of Present Illness Reason for Consultation: Patient is an 88-year-old, who I was asked to see at the request of Dr. Paz, for neurologic consultation regarding TIA versus stroke. Requesting Physician: Dr. Paz Attending Physician: Trevor Cardoso History of Present Illness Patient has a history of TIAs and strokes on multiple occasions in the past. There was an event in 2001 for which she was placed on aspirin and then event in 2005 where she had some speech difficulty temporarily and again remained on aspirin. She 1st saw Dr. Reyez in June of 2011 following an event where she had some left hemispheric TIA like symptoms. He switched her to Plavix instead of aspirin. He last saw her in 2012 and she was stable on Plavix. MRIs of the brain at that time showed multiple old small vessel ischemia diffusely bilaterally. There have been no further TIA or CVA like events since until recently. Patient has essential tremor also evaluated by Dr. Reyez. She did not have Parkinson's disease as of 2012. She has a history of depression controlled on fluoxetine, hypertension, and hypothyroidism. On December 262018 she fell in the [employer] parking hitting her left side. A CT scan of the head showed no acute changes. After emergency room evaluation no fractures were identified On January 25, she was in the kitchen bending over and the refrigerator and fell backwards strain on her buttocks and then hit her occipital head region. X-ray showed fracture of the coccyx She was not getting headaches as a result of these falls. Patient was admitted on February 06 with abdominal distension and pain. CT scans and evaluations showed a possible old hematoma and probably not an abscess. There may have been a small fistula as well. Plavix was put on hold and she was on no antiplatelet medication throughout this hospitalization. Around 1600 on February 11, the patient was noted by family to have facial droop and slurred speech. Then resolved. Patient was tired at the time. They came back later in the evening in felt that it happened again. She was evaluated and clinicians did not notice any particular facial droop or speech issues. The stroke alert was called and a CT scan of the head showed no acute changes but there were very small bifrontal subdural hygromas (verses frontal atrophy). CTA of the head neck showed no stenoses or vascular anomalies. A consultation with [facility] telestroke resulted in no additional treatment except to give her aspirin. Patient did not have any further events and this morning feels at baseline. Nursing reports no additional events overnight. An MRI of the brain revealed moderate generalized cerebral atrophy with moderate old small vessel ischemic changes diffusely. There were no acute changes. 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 I reviewed these films Currently the patient denies mood issues, fatigue of significance, pain, headaches, weakness, numbness, speech issues, or vision problems. She denies incontinence of urine currently also. CBC shows anemia. Chem profile shows increased BUN and creatinine. Allergies Allergy/AdvReac Type Severity Reaction Status Date / Time oxycodone Allergy Mild RASH Verified 02/06/19 11:01 alendronate sodium Allergy Unknown [facility] LIST Verified 02/06/19 11:01 Bactrim Allergy Unknown [facility] LIST Verified 02/07/18 04:16 cefuroxime Allergy Unknown UNKNOWN ON Verified 02/06/19 11:01 LIST Cipro Allergy Unknown Unknown Verified 02/07/18 21:42 ciprofloxacin Allergy Unknown UNKNOWN ON Verified 02/06/19 11:01 LIST codeine Allergy Unknown UNKNOWN ON Verified 02/06/19 11:01 LIST gabapentin Allergy Unknown UNKNOWN ON Verified 02/06/19 11:01 LIST meperidine Allergy Unknown UNKNOWN ON Verified 02/06/19 11:01 LIST propoxyphene Allergy Unknown UNKNOWN ON Verified 02/06/19 11:01 LIST Sulfa (Sulfonamide Allergy Unknown UNKNOWN ON Verified 02/06/19 11:01 Antibiotics) LIST sulfamethoxazole Allergy Unknown [facility] LIST Verified 02/06/19 11:01 trimethoprim Allergy Unknown [facility] LIST Verified 02/06/19 11:01 amphetamine AdvReac Severe UNKNOWN ON Verified 02/06/19 11:01 LIST dextroamphetamine AdvReac Severe UNKNOWN ON Verified 02/06/19 11:01 LIST hydrochlorothiazide AdvReac Intermediate GI DISTRESS Verified 02/06/19 11:01 methyldopa AdvReac Intermediate GI DISTRESS Verified 02/06/19 11:01 Home Medications Home Medications Medication Instructions Recorded Confirmed Type Lactobacillus acidophilus 100 mg PO DAILY 12/26/18 02/06/19 History [Acidophilus] albuterol sulfate [Ventolin HFA] 1 - 2 puff INHALATION Q4 PRN 12/26/18 02/06/19 History amlodipine 10 mg PO DAILY 12/26/18 02/06/19 History atorvastatin 20 mg PO DAILY 12/26/18 02/06/19 History calcium carbonate 300 mg PO BID 12/26/18 02/06/19 History cholecalciferol (vitamin D3) 2,000 unit PO DAILY 12/26/18 02/06/19 History [Vitamin D3] fluoxetine 10 mg PO QAM 12/26/18 02/06/19 History fluoxetine 20 mg PO QPM 12/26/18 02/06/19 History fluticasone furoate-vilanterol 1 inh INHALATION DAILY 12/26/18 02/06/19 History [Breo Ellipta] metoprolol succinate 100 mg PO DAILY 12/26/18 02/06/19 History multivitamin 1 tab PO DAILY 12/26/18 02/06/19 History omega 3-vkv-bov-fish oil [Fish Oil] 1 cap PO DAILY 12/26/18 02/06/19 History potassium chloride 10 meq PO DAILY 12/26/18 02/06/19 History triamterene-hydrochlorothiazid 1 tab PO DAILY 12/26/18 02/06/19 History clopidogrel 75 mg tablet 75 mg PO DAILY #90 tab 01/23/19 02/06/19 Rx lisinopril 40 mg tablet 40 mg PO DAILY #90 tab 01/23/19 02/06/19 Rx omeprazole 20 mg tablet,delayed 20 mg PO DAILY #90 tab 01/23/19 02/06/19 Rx release levothyroxine 25 mcg PO DAILY 02/06/19 02/06/19 History Patient History Medical History Abdomen enlarged Vertigo (Acute) Transient ischemic attack (Acute) Obstructive sleep apnea, adult (Acute) Hypothyroidism (Acute) Hyperlipidemia (Acute) Depression (Chronic) Chronic cerebral ischemia (Acute) Chronic asthmatic bronchitis (Acute) CAD (coronary artery disease) (Acute) Asthma HTN (hypertension) Surgical History S/P cholecystectomy S/P hernia repair S/P hysterectomy Family History Mother , age 86 of an [place]. She also had COPD. Myocardial infarction COPD (chronic obstructive pulmonary disease) Father , age 47 of an [place]. 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 Feels Safe at Home: Yes Safety Concerns: Feels Safe At This Time Smoking Status: Never smoker Do You Dip or Chew Tobacco: No Hx Alcohol Use: No Hx Substance Use: No Review of Systems Constitutional: no fever, no fatigue and no weakness Eyes: no diplopia, no eye pain and no worsening vision Ear, Nose, Mouth, Throat: no ear pain, no tinnitus, no hearing loss and no dysphagia Respiratory: no cough and no dyspnea Cardiovascular: no chest pain, no dyspnea and no palpitations Gastrointestinal: + abdominal pain; no nausea and no vomiting Genitourinary: no dysuria, no urinary frequency and no urinary incontinence Musculoskeletal: + back pain; no neck pain, no radicular pain, no myalgia, no muscle weakness and no muscle atrophy Integumentary: no rash and no lesions Neurologic: + tremor(s); no gait abnormality, no falls, no localized weakness, no generalized weakness, no tingling, no numbness, no abnormal movements, no dizziness, no headache(s), no abnormal speech, no behavioral changes, no confusion and no memory loss Psychiatric: no depression, no abnormal sleep pattern, no anxiety, no difficul ty concentrating, no confusion and no hallucinations Endocrine: no fatigue and no flushing Hematologic / Lymphatic: no easy bleeding and no easy bruising Allergy / Immunological: no urticaria Physical Exam Physical Exam: The patient is right-handed. The patient is awake, alert, and attentive. Speech is normal without any aphasia or dysarthria. Mentation and thought processes are intact, with full orientation and normal fund of knowledge. Attention and concentration are normal. Mood and affect are normal and appropriate. General appearance and grooming are normal. Short and long-term memory are intact to conversation. The discs are sharp with positive venous pulsations bilaterally. There are no exudates, hemorrhages, or blood vessel changes seen. Pupils are 3 mm bilaterally and reactive to light. Extraocular eye muscles are intact without nystagmus. Visual acuity and visual juarez seem normal grossly to confrontation. There are no deficits to sensation in the face in all 3 distributions of the fifth cranial nerve bilaterally. Corneal reflexes are positive bilaterally. Facial movement was good bilaterally. There is a little asymmetry with the left corner of the mouth a little lower than the right but family feels that this is baseline for the patient. Hearing seems intact grossly to voice and finger rub bilaterally. Palate moves well without asymmetry. There is normal sternocleidomastoid and trapezius (shoulder shrug) strength bilaterally. Tongue is midline with good strength bilaterally. Neck has a full range of motion without discomfort. There are no cervical bruits bilaterally. There are no cranial or ocular bruits. Heart is without murmur. There is a regular rhythm and rate. Cervical, thoracic, and lumbar spine are nontender to palpation. Gait is not tested but stance sitting up in bed is poor because of her abdominal pain. With outstretched arms there is no drift. There are no resting tremors. She has very mild postural and action tremor bilaterally. There is no ataxia with finger to nose testing. There is good facility in the hands. No other abnormal involuntary movements are noted. Motor strength is 5/5 diffusely in the arms bilaterally including deltoids, biceps, triceps, brachioradialis, wrist flexors and extensors, traffic manager, and intrinsic hand muscles. Motor strength is 5/5 diffusely in the legs in the hip flexors, tibialis anterior, and gastrocnemius muscles bilaterally. Quadriceps muscles are 4/5 bilaterally. The limbs have good tone without rigidity or spasticity. There is no atrophy noted in the muscles. Muscle bulk is normal, there is no tenderness to palpation, no myotonia to percussion, and no fasciculations seen. Sensory examination is intact to touch and pin throughout all 4 limbs diffusely. Reflexes are 1/4 in the biceps, triceps, brachioradialis, and quadriceps tendons bilaterally. Achilles tendon reflexes are absent bilaterally. Toes are downgoing with plantar stimulation bilaterally. Peripheral pulses are present and of normal quality distally in all 4 limbs. There is no peripheral edema noted in the limbs. Results & Data Vital Signs (Past 12 Hours) Vital Signs Temp Pulse Pulse Resp BP BP BP 02/12/19 08:04 74 02/12/19 07:41 36.9 C 78 20 117/71 02/12/19 04:34 36.6 C 64 20 102/62 02/12/19 00:00 68 02/11/19 23:00 36.8 C 65 19 112/70 02/11/19 21:54 70 16 02/11/19 21:27 36.4 C L 71 18 130/72 02/11/19 20:52 76 29 H 134/62 02/11/19 20:31 80 27 H 131/65 Pulse Ox 02/12/19 08:04 02/12/19 07:41 94 02/12/19 04:34 94 02/12/19 00:00 02/11/19 23:00 94 02/11/19 21:54 96 02/11/19 21:27 96 02/11/19 20:52 95 02/11/19 20:31 94 Diagnostic Findings Brain MRI WITHOUT CONTRAST HISTORY: ? lacunar stroke, acute slurred speech TECHNIQUE: Multiplanar multisequence MRI of the brain was performed without the use of contrast. COMPARISON STUDY: Head CT 02/11/2019. FINDINGS: There is no mass, hematoma, midline shift, or acute infarct. The paranasal sinuses are clear. The mastoid air cells are clear. The ventricles and sulci demonstrate mild age-related involutional changes. Scattered foci of T2 hyperintensity seen within the periventricular and subcortical white matter are nonspecific but suggestive of mild microvascular ischemic changes. The major vascular flow voids at the skull base are well-maintained. Bilateral basal ganglia lacunar infarcts are again noted. Bifrontal CSF intensity fluid collections remain unchanged. These measure up to 1.3 cm in thickness and result in mild mass effect on the frontal lobes. This favors chronic subdural hygromas. IMPRESSION: No significant change compared to the prior study. No acute intracranial abnormality. 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 Electronically signed by: Junior Starr M.D. 02/12/2019 7:46 AM
[2019-02-12] MEDS: SODIUM CHLORIDE 0.9% 1000ML 1,000 ML IV SCH (14:13)
[2019-02-12] MEDS ORDERED: DAPTOmycin 500 MG VIAL IV SCH (17:45)
[2019-02-12] MEDS: ASPIRIN 81 MG ECTAB PO SCH (18:38)
--- NOTE | 2019-02-12 19:29 | Hospitalist Progress Note ---
Date of Service February 12, 2019 Assessment & Plan (1) Transient ischemic attack: Last evening's event may have been a brief TIA. Other possibility is that her severe dry mouth led to slurry speech. She has also been confused intermittently which could have contributed to the event. Either way her MRI brain is neg for acute CVA. CTA head/neck w/o stenosis or other findings. Tele overnight normal (no a.fib/flutter). Echo today w/o source of thrombus. Seen by Dr Hartmann - neurology - appreciate his consult. Advised to continue asa 81mg daily while hospitalized then resume plavix for secondary prevention at d/c. Reconsult PT, OT, and speech therapy. Present on Admission?: No (2) Abdominal wall fluid collections: Fluid collection on CT reviewed by Dr. Khan with radiology on presentation. It was initially felt that the fluid collection was most likely a hematoma only and no concern for abscess. Drainage was not advised. There was suggestion of fistula as well. She initially received IV antibiotics for possible superinfection of these collections. IV antibiotics were then stopped, and following such she clinically worsened (leukocytosis got worse, poor appetite, confusion/lethargy, etc). Repeat CT scan showed modest improvement in size of collections. Phone discussions w/ surgery recommended antibiotics for 14 days. Zosyn was reinstituted on 02/10/19. WBC count continues to be elevated and she is anorexic - will presume due to infected fluid collections. Will add daptomycin to the zosyn for MRSA coverage. Formal ID consult requested. Repeat CBC in am. NO abd pain on exam today. Present on Admission?: Yes (3) Anemia: Possibly secondary to acute blood loss (abd fluid collections) but cannot prove they are blood-filled. s/p 2 units PRBCs this admission. Stable H/H since. Repeat CBC in am. Present on Admission?: Yes (4) ARF (acute renal failure): resolved peak Cr 1.49 today's Cr 1.2 repeat BMP am (5) Back Pain: Recent coccyx fracture. no complaints of pain today. PT, OT. (6) Metabolic encephalopathy: presumed 2nd to infectious process in abdomen. seems better today. (7) Hyperlipidemia: hold home atorvastatin due to IV daptomycin use (8) Depression: remains on fluoxetine (9) Asthma: no exacerbation at this time (10) HTN (hypertension): Discontinued amlodipine due to low-normal BPs Held lisinopril Metoprolol continues (11) GERD (gastroesophageal reflux disease): continue PPI no symptoms (12) Hypokalemia: continue home potassium most recent K level was stable (13) Candidiasis of mouth and esophagus: start nystatin 5cc qid (14) Hypothyroidism: most recent TSH wnl cont synthroid (15) Obstructive sleep apnea, adult: continue HS BIPAP (16) Chronic kidney disease, stage 3a: BMP in am baseline CrCl <60 (17) DVT prophylaxis: SCDs family extensively updated at bedside today all questions answered she is quite weak/deconditioned -- anticipate needing rehab after discharge Subjective tele stable overnight events of last 24 hours reviewed had questionable facial droop last night and slurred speech leading to stroke alert being called stroke w/u NEGATIVE with normal MRI brain (subdural hygromas seen -- family reports multiple falls last 1-2 years with head injuries) speech/facial symmetry normal today she c/o very dry mouth and difficulty initiating her swallow NUMEROUS family at bedside today with NUMEROUS questions family report ongoing anorexia and intermittent mild confusion patient herself denies any specific complaints Review of Systems Constitutional: no fever Respiratory: no cough and no dyspnea Cardiovascular: no chest pain Gastrointestinal: no abdominal pain, no nausea and no vomiting Physical Exam Constitutional: + ill appearing; no acute distress and no altered mental status ENMT: Mouth: + oral mucosal abnormality (thrush plaques) and + dry oral mucous membranes Respiratory: normal respiratory effort, lungs clear to auscultation Cardiovascular: Rate/Rhythm: regular rate and regular rhythm Heart Sounds: normal S1 and normal S2; no murmur Vessels: posterior tibial pulses present and dorsalis pedis pulses present; no JVD Gastrointestinal (Abdomen): normal bowel sounds, soft, nontender, no hepatosplenomegaly numerous scars on abd wall Neurologic: no facial droop; speech relatively clear/fluent; strength 5/5 x 4 extremities Psychiatric: A+Ox3, euthymic affect Results & Data Vital Signs (Past 12 Hours) Vital Signs Temp Pulse Pulse Resp BP Pulse Ox 02/12/19 17:11 75 02/12/19 14:43 36.4 C L 75 20 110/71 94 02/12/19 11:36 36.4 C L 74 20 98/62 L 96 02/12/19 08:04 74 02/12/19 07:41 36.9 C 78 20 117/71 94 Laboratory Results Laboratory Results - last 24 hr 02/11/19 02/12/19 02/12/19 20:11 05:07 05:07 Creatinine 1.25 H Est Cr Clr Drug Dosing 29.3 Est GFR ( Amer) 44.8 Est GFR (Non-Af Amer) 38.6 POC Glucose 97 Homocysteine Pending PG Care Time/CCT Total # of Minutes Spent Total Time Spent with Patient: Total time spent is greater than 50% in coordination of care (as documented) at patient's floor/unit and/or counseling patient: (1) ARF (acute renal failure) Acute renal failure type: unspecified Qualified Code(s): N17.9 - Acute kidney failure, unspecified (2) Anemia Anemia type: unspecified type Qualified Code(s): D64.9 - Anemia, unspecified (3) Back Pain Back pain location: low back pain Chronicity: acute Back pain laterality: unspecified Sciatica presence: unspecified whether sciatica present Qualified Code(s): M54.5 - Low back pain (4) Depression Depression Type: other depression Qualified Code(s): F32.89 - Other specified depressive episodes (5) Hyperlipidemia Hyperlipidemia type: mixed hyperlipidemia Qualified Code(s): E78.2 - Mixed hyperlipidemia (6) GERD (gastroesophageal reflux disease) Esophagitis presence: esophagitis presence not specified Qualified Code(s): K21.9 - Gastro-esophageal reflux disease without esophagitis (7) HTN (hypertension) Hypertension type: essential hypertension Qualified Code(s): I10 - Essential (primary) hypertension (8) Asthma Asthma severity: unspecified severity Asthma persistence: unspecified Asthma complication type: uncomplicated Qualified Code(s): J45.909 - Unspecified asthma, uncomplicated (9) Hypothyroidism Hypothyroidism type: acquired Qualified Code(s): E03.9 - Hypothyroidism, unspecified
[2019-02-12] MEDS: DAPTOmycin 300 MG in SYRINGE 0 ML IV SCH (19:59)
[2019-02-12] MEDS: FLUOXETINE HCL 20 MG CAP PO SCH (20:34)
[2019-02-12] MEDS: NYSTATIN SUSP 500,000 U/5 ML UDC PO SCH (20:35)
[2019-02-13] MEDS: SODIUM CHLORIDE 0.9% 1000ML 1,000 ML IV SCH ×2 (00:56→13:01)
[2019-02-13] MEDS: PIPERACILLIN/TAZOBACTAM 3.375 GM in DEXTROSE 5% 100 ML IV SCH ×3 (05:22→20:57)
[2019-02-13] MEDS: LEVOTHYROXINE SODIUM 25 MCG TABLET PO SCH (05:22)
[2019-02-13 06:21] LABS: Hematocrit (blood only) 26.8 % (37-47); Hemoglobin 8.9 g/dL (12.0-16.0); Mean Corpuscular Hgb Conc 33.2 g/dL (32-36); Mean Corpuscular Volume 83.8 fL (80-100); Platelet Count 347 K/uL (130-400); RDW Coefficient of Variation 16.3 % (11.5-14.5); RDW Standard Deviation 50.3 fL (36.4-46.3); White Blood Count 17.78 K/uL (4.8-10.8)
[2019-02-13 06:46] LABS: Basophils # (auto) 0.02 K/uL (0-0.2); Basophils % (auto) 0.1 %; Echinocytes 1+; Eosinophils # (auto) 0.16 K/uL (0-0.5); Eosinophils % (auto) 0.9 %; Immature Granulocytes # (auto) 0.11 K/uL (0.00-0.02); Immature Granulocytes % (auto) 0.6 %; Lymphocytes % (auto) 3.4 %; Monocytes # (auto) 0.95 K/uL (0.11-0.59); Monocytes % (auto) 5.3 %; Neutrophils # (auto) 15.94 K/uL (1.4-6.5); Neutrophils % (auto) 89.7 %
[2019-02-13 06:59] LABS: BUN Creatinine Ratio 24.6 (10-20); Creatinine Clr Calc Pharmacy 33.2 ml/min; Est GFR (African American) 51.7; Est GFR (Non-African American) 44.6; Magnesium 1.7 mg/dl (1.8-2.4); Potassium 3.5 mmol/L (3.5-5.1)
[2019-02-13] MEDS: FLUTICASONE/VILANTEROL INHALER INH SCH (07:35)
[2019-02-13] MEDS: LACTOBACILLUS ACIDOPHILUS (FLORANEX) TAB PO SCH ×3 (07:35→16:19)
[2019-02-13] MEDS: ASPIRIN 81 MG ECTAB PO SCH (07:36)
[2019-02-13] MEDS: POTASSIUM CHLORIDE 10 MEQ TABCR PO SCH (07:36)
[2019-02-13] MEDS: OMEGA-3 (PURIFIED FISH OIL) 1 GM CAP PO SCH (07:36)
[2019-02-13] MEDS: MULTIVITAMIN TAB PO SCH (07:37)
[2019-02-13] MEDS: PANTOprazole 40 MG TAB PO SCH (07:37)
[2019-02-13] MEDS: FERROUS SULFATE 325 MG TAB PO SCH (07:37)
[2019-02-13] MEDS: METOPROLOL SUCC 50MG EXT REL TAB PO SCH (07:38)
[2019-02-13] MEDS: TRIAMTERENE/HCTZ 37.5/25MG TAB PO SCH (07:38)
[2019-02-13] MEDS: FLUOXETINE HCL 10 MG CAP PO SCH (07:38)
[2019-02-13] MEDS: NYSTATIN SUSP 500,000 U/5 ML UDC PO SCH ×4 (07:41→20:59)
[2019-02-13] MEDS: CALCIUM CARBONATE 1250MG TAB PO SCH ×2 (07:41→20:58)
[2019-02-13] MEDS: CHOLECALCIFEROL 1,000 UNITS TAB PO SCH (07:44)
[2019-02-13] MEDS ORDERED: MAGNESIUM SULFATE / D5W 1 GM/100 ML BAG IV ONE (07:45)
--- NOTE | 2019-02-13 08:38 | Neurology Progress Note ---
Date of Service February 13, 2019 Assessment & Plan (1) Transient ischemic attack: Patient had an episode 02/11 of transient dysarthria and left facial droop. This was not really witnessed by clinical staff but noted by family. She has been clinically back to baseline since. Stroke alert evaluation revealed no new issues on CT scan of the head. CTA of the head neck showed no significant stenoses or vascular anomalies. MRI of the brain showed no acute stroke but did show old diffuse moderate small vessel ischemia, moderate generalized atrophy, and small subdural hygromas. The hygromas are likely secondary to her previous head trauma, earlier in the month, from two falls. She is at fall risk but clearly she has cerebral vascular risks (off Plavix for 6 days). Interestingly she had been doing quite well on Plavix for years. On examination she has no focal neurologic findings, meningeal signs, or encephalopathy. When she is fatigued or stressed some of her older symptoms may come out (like a facial droop, some weakness, or slurred speech). These symptoms are temporary and improved when she is less fatigued or stressed. For now she is on 81 milligram aspirin tablet daily. Risk factors for stroke include advanced age, history of hypertension, and more recently significant anemia. She had 2 significant falls recently. (2) Chronic cerebral ischemia: Patient has old small vessel ischemic change. She has no history or radiographic evidence for large vessel disease and she has no cardiac issues or dysrhythmias. She was stable on antiplatelet medication Plavix. (3) Tremor: Patient has essential tremor which is mild currently there is no need for additional testing or treatment for this problem. Today her tremor is less prominent bilaterally. She has no signs of Parkinson's disease. (4) Depression: Patient has a history of depression which is stable on fluoxetine. Recommendations: 1. Keep aspirin 81 milligrams daily for now. Consider switching back to Plavix after her hospitalization which could be done as an outpatient. 2. Treat anemia as best as possible as this will help reduce TIA/stroke risk. Her hemoglobin is slowly worsened. 3. I realize that she is a significant fall risk but I believe the benefits of the antiplatelet medication outweigh the fall risk/bleeding risk. 4. Avoid hypotension as you are doing as this gives her stroke risk as well. 5. Subdural hygromas do not need any additional treatment but a follow-up CT in future to make sure there resolved would be reasonable (as an outpatient). 6. I note the elevated white count today -defer evaluation/treatment to hospitalist. Overall, I spent a total of 35 minutes with this case including review of records, direct evaluation the patient at bedside, and discussion of the case with the patient at bedside, nursing staff at bedside, and Dr. Cardoso including differential diagnosis and treatment options. Subjective Patient has had no further events or spells. She feels better today than yesterday. She denies headaches, weakness, numbness, speech problems and her abdomen feels no worse. She has no new neck pain or stiffness. Laboratory studies revealed white count of 17.7, hemoglobin 8.9, hematocrit 26.8. Chem profile showed a mildly elevated BUN and a slightly low magnesium at 1.7. Blood pressure is 110/68 and temperature was 37.2. Physical Exam Physical Exam: She is awake and alert. She is sitting up in the chair comfortable and has no abnormal involuntary movements. Speech is without aphasia or dysarthria. Mood is normal and affect is appropriate. Thought processes seem intact. There is no facial droop. Extraocular eye muscles are intact without nystagmus. With outstretched arms there is no drift and there is no tremor or ataxia with umyhrk-tj-woki testing. Strength is symmetrical in the limbs. Results & Data Vital Signs (Past 12 Hours) Vital Signs Temp Pulse Pulse Resp BP Pulse Ox 02/13/19 08:00 37.1 C 78 20 124/65 93 02/13/19 04:00 37.2 C 79 18 110/68 96 02/13/19 01:27 79 02/13/19 00:00 37.2 C 80 18 118/72 93 02/12/19 21:50 88 16 94 (1) Depression Depression Type: other depression Qualified Code(s): F32.89 - Other specified depressive episodes
--- NOTE | 2019-02-13 10:11 | Infectious Disease Consult ---
Date of Consultation February 13, 2019 Assessment & Plan (1) Abscess of abdominal wall: 88-year-old female with what appears to be infected hematoma or seroma with possible fistulous connection to colon. Unable to determine whether there is a component of infected mesh as well. Given clinical improvement on antibiotics, and inability to pursue further surgical intervention, would recommend continuing antibiotics IV for 14 days with follow-up CT scan to ensure improvement. Will then likely transition to oral antibiotics. If outpatient therapy desires, would consider use of ertapenem. Will discuss with all involved. Will follow. History of Present Illness Reason for Consultation: Suspected infected intra-abdominal hematoma Attending Physician: Trevor Cardoso History of Present Illness 88-year-old female with history of hypertension, hyperlipidemia, coronary artery disease, asthma, obstructive sleep apnea, with multiple past abdominal surgeries surgeries including mesh placement. She recently suffered several falls including suffering coccygeal fracture. She then developed progressively worsening abdominal pain, and abdominal CT revealed large anterior wall collection, with what appeared to be collection below the mesh as well. She was treated with IV antibiotics which were discontinued, but then developed leukocytosis and antibiotics were restarted with combination of Zosyn and daptomycin. She now is feeling better with improvement in white blood cell count. She has remained afebrile throughout the this time, denies any chills or sweats. Complaining of overall weakness with minimal abdominal pain. Allergies Allergy/AdvReac Type Severity Reaction Status Date / Time oxycodone Allergy Mild RASH Verified 02/06/19 11:01 alendronate sodium Allergy [place] [facility] [place] 02/06/19 11:01 Bactrim Allergy Unknown [facility] [place] Verified 02/07/18 04:16 cefuroxime Allergy Unknown UNKNOWN ON Verified 02/06/19 11:01 LIST Cipro Allergy Unknown Unknown Verified 02/07/18 21:42 ciprofloxacin Allergy Unknown UNKNOWN ON Verified 02/06/19 11:01 LIST codeine Allergy Unknown UNKNOWN ON Verified 02/06/19 11:01 LIST gabapentin Allergy Unknown UNKNOWN ON Verified 02/06/19 11:01 LIST meperidine Allergy Unknown UNKNOWN ON Verified 02/06/19 11:01 LIST propoxyphene Allergy Unknown UNKNOWN ON Verified 02/06/19 11:01 LIST Sulfa (Sulfonamide Allergy Unknown UNKNOWN ON Verified 02/06/19 11:01 Antibiotics) LIST sulfamethoxazole Allergy [place] [facility] [place] Verified 02/06/19 11:01 trimethoprim Allergy Unknown [facility] LIST Verified 02/06/19 11:01 amphetamine AdvReac Severe UNKNOWN ON Verified 02/06/19 11:01 LIST dextroamphetamine AdvReac Severe UNKNOWN ON Verified 02/06/19 11:01 LIST hydrochlorothiazide AdvReac Intermediate GI DISTRESS Verified 02/06/19 11:01 methyldopa AdvReac Intermediate GI DISTRESS Verified 02/06/19 11:01 Home Medications Home Medications Medication Instructions Recorded Confirmed Type Lactobacillus acidophilus 100 mg PO DAILY 12/26/18 02/06/19 History [Acidophilus] albuterol sulfate [Ventolin HFA] 1 - 2 puff INHALATION Q4 PRN 12/26/18 02/06/19 History amlodipine 10 mg PO DAILY 12/26/18 02/06/19 History atorvastatin 20 mg PO DAILY 12/26/18 02/06/19 History calcium carbonate 300 mg PO BID 12/26/18 02/06/19 History cholecalciferol (vitamin D3) 2,000 unit PO DAILY 12/26/18 02/06/19 History [Vitamin D3] fluoxetine 10 mg PO QAM 12/26/18 02/06/19 History fluoxetine 20 mg PO QPM 12/26/18 02/06/19 History fluticasone furoate-vilanterol 1 inh INHALATION DAILY 12/26/18 02/06/19 History [Breo Ellipta] metoprolol succinate 100 mg PO DAILY 12/26/18 02/06/19 History multivitamin 1 tab PO DAILY 12/26/18 02/06/19 History omega [id number]-tjy-fish oil [Fish Oil] 1 cap PO DAILY 12/26/18 02/06/19 History potassium chloride 10 meq PO DAILY 12/26/18 02/06/19 History triamterene-hydrochlorothiazid 1 tab PO DAILY 12/26/18 02/06/19 History clopidogrel 75 mg tablet 75 mg PO DAILY #90 tab 01/23/19 02/06/19 Rx lisinopril 40 mg tablet 40 mg PO DAILY #90 tab 01/23/19 02/06/19 Rx omeprazole 20 mg tablet,delayed 20 mg PO DAILY #90 tab 01/23/19 02/06/19 Rx release levothyroxine 25 mcg PO DAILY 02/06/19 02/06/19 History Patient History Medical History Abdomen enlarged Vertigo (Acute) Transient ischemic attack (Acute) Obstructive sleep apnea, adult (Acute) Hypothyroidism (Acute) Hyperlipidemia (Acute) Depression (Chronic) Chronic cerebral ischemia (Acute) Chronic asthmatic bronchitis (Acute) CAD (coronary artery disease) (Acute) Asthma HTN (hypertension) Surgical History S/P cholecystectomy S/P hernia repair S/P hysterectomy Family History Mother , age 86 of an [place]. She also had COPD. Myocardial infarction COPD (chronic obstructive pulmonary disease) Father , age 47 of an [place]. 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 Feels Safe at Home: Yes Safety Concerns: Feels Safe At This Time Smoking Status: Never smoker Do You Dip or Chew Tobacco: No Hx Alcohol Use: No Hx Substance Use: No Review of Systems Review of Systems: All systems reviewed & are unremarkable except as noted in HPI & below Physical Exam Constitutional: WD/WN, vitals as above no acute distress Eyes: PERRL, conjunctivae normal, anicteric sclerae ENMT: external ear and nose normal, oropharynx normal Neck: trachea midline, no thyromegaly normal visual inspection Respiratory: normal respiratory effort, lungs clear to auscultation normal percussion Cardiovascular: RRR, no murmur, no edema Heart Sounds: no gallop and no cardiac rub Gastrointestinal (Abdomen): normal bowel sounds, soft, nontender, no hepatosplenomegaly Inspection/Auscultation: + abdomen distended Percussion/Palpation: no abdominal mass Multiple surgical scars Musculoskeletal: Head/Neck/Chest: normocephalic, head atraumatic and neck supple Extremities: strength 5/5 throughout Skin: no rashes, warm and dry normal turgor Neurologic: moves all extremities; no focal motor deficits Speech / Cognition: normal speech Psychiatric: A+Ox3, euthymic affect Lymphatic: no cervical or axillary lymphadenopathy no inguinal lymphadenopathy Results & Data Vital Signs (Past 12 Hours) Vital Signs Temp Pulse Pulse Resp BP Pulse Ox 02/13/19 08:00 37.1 C 78 20 124/65 93 02/13/19 04:00 37.2 C 79 18 110/68 96 02/13/19 01:27 79 02/13/19 00:00 37.2 C 80 18 118/72 93 Laboratory Results Short CBC 02/13/19 Range/Units 05:40 WBC 17.78 H (4.8-10.8) K/uL Hgb 8.9 L (12.0-16.0) g/dL Hct 26.8 L (37-47) % Plt Count 347 (130-400) K/uL BMP 02/13/19 05:40 Sodium 136 Potassium 3.5 Chloride 106 Carbon Dioxide 20 L BUN 27 H Creatinine 1.11 Glucose 80 Calcium 9.0 Diagnostic Findings Microbiology 02/06/19 15:05 Blood Aerobic Blood Culture - Final No growth in Aerobic bottle after 5 days. 02/06/19 15:05 Blood Anaerobic Blood Culture - Final No growth in Anaerobic bottle after 5 days. 02/06/19 15:05 Blood Aerobic Blood Culture - Final No growth in Aerobic bottle after 5 days. 02/06/19 15:05 Blood Anaerobic Blood Culture - Final No growth in Anaerobic bottle after 5 days. 02/06/19 19:50 Urine,Clean Catch Urine Culture - Final More than three types of organisms present, all high counts mixed probable skin tierney - No further identifications or sensitivities to follow. CT SCAN OF THE ABDOMEN AND PELVIS WITH IV CONTRAST CLINICAL HISTORY: Generalized abdominal pain. COMPARISON STUDY: Abdominal CT dated 02/06/2019. TECHNIQUE: Following the IV administration of 92 cc of Optiray 320, CT scan of the abdomen and pelvis is performed from the lung bases to the proximal femora. Images are reviewed in the axial, sagittal, and coronal planes. IV contrast was administered without complication. Oral contrast was utilized. A dose lowering technique was utilized adhering to the principles of ALARA. CT DOSE: 459.44 mGy.cm FINDINGS: Lung bases: The heart is normal in size and without pericardial effusion. The coronary arteries are densely calcified. There is a small hiatal hernia. There is bibasilar scarring/atelectasis. Small fat-containing Bochdalek hernias are seen at both lung bases. No airspace consolidation or pleural effusion is identified. Liver: The contrast-enhanced liver is normal in size, contour, and attenuation. There is mild central intrahepatic biliary ductal dilatation. The hepatic veins and portal veins are patent. Gallbladder: Surgically absent noting clips in the gallbladder fossa. Spleen: Normal in size and attenuation. 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 Pancreas: Moderately atrophic and grossly unremarkable. Adrenal glands: Unremarkable. Kidneys: The contrast enhanced kidneys are atrophic and without hydronephrosis. Cortical scarring is seen in the upper pole of the right kidney. The kidneys enhance symmetrically. A 7.5 cm minimally complex cystic lesion is again seen arising from the lower pole of the left kidney. A 1.5 cm cyst is present in the left upper pole. A 2.4 cm nonobstructing calculus is present in the right upper pole. Abdominal vasculature: The abdominal aorta is normal in course and caliber noting advanced atherosclerotic calcification. Bowel: Enteric contrast reaches the distal colon. No bowel obstruction is seen. There is mild to moderate colonic diverticulosis without CT evidence of acute diverticulitis. The appendix is well-visualized and normal. Abdominal wall and peritoneum: Again seen is a large low-attenuation collection within the ventral abdominal wall on image #257. This measures approximately 18 x 7.5 x 25 cm in aggregate dimension. This has decreased in complexity as compared to 02/06/2019. Foci of increased attenuation are again seen within the inferior aspect of the collection (image #24). Small foci of gas are again noted within the collection, and have also decreased from previous. Postoperative change is suggested along the ventral abdominal wall. An intraperitoneal component of the collection is again seen deep to the hernia mesh, best image on image #239. This measures approximately 7 x 1.5 x 8 cm. There is mild wall thickening is collection with internal gas. This closely approximates the anterior aspect of the transverse colon, and a fistulous connection is suggested on axial image #222. No intraperitoneal free air is seen, and there is no abdominal ascites. Lymphadenopathy: None. Pelvic viscera: The bladder is normal as visualized. The uterus is surgically absent. No adnexal lesion is seen. Skeletal structures: The skeletal structures are osteopenic. There is moderate lumbosacral spondylosis. Angulated fractures of the inferior sacrum are again noted. No lytic or blastic lesions are seen. IMPRESSION: 1. Again seen is a large collection within the ventral abdominal wall. This has decreased in complexity as compared to 02/06/2019, and the small foci of internal gas have also decreased from previous. This likely represents a large seroma/hematoma. Superimposed infection would be impossible to exclude and clinical correlation will be essential. 2. There is evidence of previous ventral hernia repair. An intraperitoneal component of the collection is again seen deep to the hernia mesh and this has not appreciably changed from previous. 3. Suspect a fistulous connection between the intraperitoneal component of the collection and the subjacent transverse colon. 4. There is no bowel obstruction. 5. Mild to moderate colonic diverticulosis without CT evidence of acute diverticulitis. 6. There is a large nonobstructing right renal calculus. 7. There is a 7.5 cm minimally complex cystic lesion arising from the lower pole of left kidney. No enhancing elements are identified and this is of low suspicion. Consider precautionary ultrasound follow-up in 6 months time. 8. Additional findings as above.
[2019-02-13] MEDS: DAPTOmycin 300 MG in SYRINGE 0 ML IV SCH (18:02)
--- NOTE | 2019-02-13 20:34 | Hospitalist Progress Note ---
Date of Service February 13, 2019 Assessment & Plan (1) Abdominal wall fluid collections: Fluid collection on CT reviewed by Dr. Khan with radiology on presentation. It was initially felt that the fluid collection was most likely a hematoma only and no concern for abscess. Drainage was not advised. There was suggestion of fistula as well. She initially received IV antibiotics for possible superinfection of these collections. IV antibiotics were then stopped, and following such she clinically worsened (leukocytosis got worse, poor appetite, confusion/lethargy, etc). Repeat CT scan on 02/10/19 showed modest improvement in size of collections. Phone discussions w/ surgery recommended antibiotics for 14 days. Zosyn was reinstituted on 02/10/19. Daptomycin added on 02/12/19 to cover possibility of MRSA. Remains on zosyn. ID consulted; Dr Espinosa saw today; recommending at least 14 days of treatment. Duration of IV will depend on clinical response. She may have component of skin involvement as well based on exam today. Repeat CBC in am. (2) Transient ischemic attack: 02/11/19. Slurred speech with questionable facial droop. Stroke alert called. MRI neg for acute stroke. CTA head/neck w/o stenosis or other findings. no a.fib/flutter since hospital admission. Echo w/o source of thrombus. Seen by Dr Hartmann - neurology - Advised to continue asa 81mg daily while hospitalized then resume plavix for secondary prevention at d/c. Reconsulted PT, OT, and speech therapy. Doing ok from therapy standpoint. Appreciate Dr Hartmann's assistance and therapy assistance. (3) Anemia: Possibly secondary to acute blood loss (abd fluid collections) but cannot prove they are blood-filled. s/p 2 units PRBCs this admission. Stable H/H since. Repeat CBC stable today. (4) ARF (acute renal failure): resolved peak Cr 1.49 today's Cr 1.1 repeat BMP am (5) Back Pain: Recent coccyx fracture. again no complaints of pain today. PT, OT. (6) Metabolic encephalopathy: presumed 2nd to infectious process in abdomen. improving each day. patient seemed fairly sharp today. (7) Hyperlipidemia: hold home atorvastatin due to IV daptomycin use (8) Depression: cont fluoxetine (9) Asthma: no exacerbation at this time (10) HTN (hypertension): Discontinued amlodipine due to low-normal BPs Held lisinopril Metoprolol continues Also will stop HCTZ due to ongoing low or low-normal BPs (11) GERD (gastroesophageal reflux disease): continue PPI no symptoms (12) Candidiasis of mouth and esophagus: nystatin 5cc qid improving (13) Hypothyroidism: most recent TSH wnl cont synthroid (14) Obstructive sleep apnea, adult: continue HS BIPAP (15) Chronic kidney disease, stage 3a: stable baseline CrCl <60 (16) DVT prophylaxis: SCDs there has been some concern of blood in her abdominal fluid collections; thus holding off chemical DVT proph multiple family members extensively updated at bedside today questions answered d/c tele move to med/surg Subjective patient feels better today. a little more energy and appetite today. had normal bowel movement. worked with PT, OT, speech today. telemetry overnight normal. no abdominal pain "unless you touch it." Review of Systems Constitutional: + fatigue; no fever and no chills Ear, Nose, Mouth, Throat: + dry mouth; no dysphagia Respiratory: no cough and no dyspnea Cardiovascular: no chest pain, no orthopnea and no paroxysmal nocturnal dy spnea Gastrointestinal: + abdominal pain; no nausea, no vomiting, no diarrhea/loose stools and no blood in stools Physical Exam Constitutional: + ill appearing (but looks modestly better today); no acute distress and no altered mental status ENMT: Mouth: + oral mucosal abnormality (thrush plaques improved) and + dry oral mucous membranes (modestly improved today) Respiratory: normal respiratory effort, lungs clear to auscultation Cardiovascular: Rate/Rhythm: regular rate and regular rhythm Heart Sounds: normal S1 and normal S2; no murmur Vessels: posterior tibial pulses present and dorsalis pedis pulses present; no JVD Gastrointestinal (Abdomen): normal bowel sounds, soft, nontender, no hepatosplenomegaly Inspection/Auscultation: + abdomen distended (mild) Skin: abdominal wall with numerous scars; there is faint, pink skin over lower midline abdomen; there is also faint pink skin over RLQ abdominal wall Psychiatric: A+Ox3, euthymic affect Results & Data Vital Signs (Past 12 Hours) Vital Signs Temp Pulse Pulse Resp BP Pulse Ox 02/13/19 18:54 36.9 C 74 18 106/69 96 02/13/19 16:50 75 02/13/19 15:23 36.7 C 68 19 105/61 94 02/13/19 11:38 36.4 C L 68 16 111/67 93 Laboratory Results Laboratory Results - last 24 hr 02/12/19 02/13/19 02/13/19 05:07 05:40 05:40 WBC 17.78 H RBC 3.20 L Hgb 8.9 L Hct 26.8 L MCV 83.8 MCH 27.8 MCHC 33.2 RDW Std Deviation 50.3 H RDW Coeff of Elliot 16.3 H Plt Count 347 MPV 8.0 Immature Gran % (Auto) 0.6 Neut % (Auto) 89.7 Lymph % (Auto) 3.4 [place] % (Auto) 5.3 Eos % (Auto) 0.9 Baso % (Auto) 0.1 Immature Gran # (Auto) 0.11 H Neut # (Auto) 15.94 H Lymph # (Auto) 0.60 L [place] # (Auto) 0.95 H Eos # (Auto) 0.16 Baso # (Auto) 0.02 Echinocytes 1+ Sodium 136 Potassium 3.5 Chloride 106 Carbon Dioxide 20 L Anion Gap 10.0 BUN 27 H Creatinine 1.11 Est Cr Clr Drug Dosing 33.2 Est GFR ( Amer) 51.7 Est GFR (Non-Af Amer) 44.6 BUN/Creatinine Ratio 24.6 H Glucose 80 Calcium 9.0 Magnesium 1.7 L Homocysteine 9.4 PG Care Time/CCT Total # of Minutes Spent Total Time Spent with Patient: Total time spent is greater than 50% in coordination of care (as documented) at patient's floor/unit and/or counseling patient: (1) Anemia Anemia type: unspecified type Qualified Code(s): D64.9 - Anemia, unspecified (2) ARF (acute renal failure) Acute renal failure type: unspecified Qualified Code(s): N17.9 - Acute kidney failure, unspecified (3) Back Pain Back pain location: low back pain Chronicity: acute Back pain laterality: unspecified Sciatica presence: unspecified whether sciatica present Qualified Code(s): M54.5 - Low back pain (4) Hyperlipidemia Hyperlipidemia type: mixed hyperlipidemia Qualified Code(s): E78.2 - Mixed hyperlipidemia (5) Depression Depression Type: other depression Qualified Code(s): F32.89 - Other specified depressive episodes (6) Asthma Asthma severity: unspecified severity Asthma persistence: unspecified Asthma complication type: uncomplicated Qualified Code(s): J45.909 - Unspecified asthma, uncomplicated (7) HTN (hypertension) Hypertension type: essential hypertension Qualified Code(s): I10 - Essential (primary) hypertension (8) GERD (gastroesophageal reflux disease) Esophagitis presence: esophagitis presence not specified Qualified Code(s): K21.9 - Gastro-esophageal reflux disease without esophagitis (9) Hypothyroidism Hypothyroidism type: acquired Qualified Code(s): E03.9 - Hypothyroidism, unspecified
[2019-02-13] MEDS: FLUOXETINE HCL 20 MG CAP PO SCH (20:59)
[2019-02-14] MEDS: PIPERACILLIN/TAZOBACTAM 3.375 GM in DEXTROSE 5% 100 ML IV SCH ×3 (05:51→21:33)
[2019-02-14] MEDS: LEVOTHYROXINE SODIUM 25 MCG TABLET PO SCH (05:51)
[2019-02-14 08:38] LABS: Hematocrit (blood only) 25.8 % (37-47); Hemoglobin 8.5 g/dL (12.0-16.0); Mean Corpuscular Hgb Conc 32.9 g/dL (32-36); Mean Corpuscular Volume 84.9 fL (80-100); Mean Platelet Volume 7.5 fL (7.4-10.4); Platelet Count 315 K/uL (130-400); RDW Coefficient of Variation 16.3 % (11.5-14.5); RDW Standard Deviation 50.7 fL (36.4-46.3); Red Blood Count 3.04 M/uL (4.2-5.4); White Blood Count 18.35 K/uL (4.8-10.8)
[2019-02-14] MEDS: MULTIVITAMIN TAB PO SCH (09:03)
[2019-02-14] MEDS: LACTOBACILLUS ACIDOPHILUS (FLORANEX) TAB PO SCH ×3 (09:03→16:27)
[2019-02-14] MEDS: PANTOprazole 40 MG TAB PO SCH (09:03)
[2019-02-14] MEDS: NYSTATIN SUSP 500,000 U/5 ML UDC PO SCH ×4 (09:03→21:35)
[2019-02-14] MEDS: METOPROLOL SUCC 50MG EXT REL TAB PO SCH (09:03)
[2019-02-14] MEDS: FERROUS SULFATE 325 MG TAB PO SCH (09:04)
[2019-02-14] MEDS: POTASSIUM CHLORIDE 10 MEQ TABCR PO SCH ×3 (09:04→21:35)
[2019-02-14] MEDS: CALCIUM CARBONATE 1250MG TAB PO SCH ×2 (09:04→21:33)
[2019-02-14] MEDS: CHOLECALCIFEROL 1,000 UNITS TAB PO SCH (09:04)
[2019-02-14] MEDS: FLUTICASONE/VILANTEROL INHALER INH SCH (09:04)
[2019-02-14] MEDS: FLUOXETINE HCL 10 MG CAP PO SCH (09:05)
[2019-02-14] MEDS: ASPIRIN 81 MG ECTAB PO SCH (09:05)
[2019-02-14] MEDS: OMEGA-3 (PURIFIED FISH OIL) 1 GM CAP PO SCH (09:05)
[2019-02-14 09:09] LABS: Creatinine Clr Calc Pharmacy 36.2 ml/min; Est GFR (African American) 57.3; Est GFR (Non-African American) 49.4; Potassium 3.4 mmol/L (3.5-5.1)
[2019-02-14] MEDS: DAPTOmycin 300 MG in SYRINGE 0 ML IV SCH (18:48)
--- NOTE | 2019-02-14 21:03 | Hospitalist Progress Note ---
Date of Service February 14, 2019 Assessment & Plan (1) Abdominal wall fluid collections: Fluid collection on CT reviewed by Dr. Khan with radiology on presentation. It was initially felt that the fluid collection was most likely a hematoma only and no concern for abscess. Drainage was not advised. There was suggestion of fistula as well. She initially received IV antibiotics for possible superinfection of these collections. IV antibiotics were then stopped, and following such she clinically worsened (leukocytosis got worse, poor appetite, confusion/lethargy, etc). Repeat CT scan on 02/10/19 showed modest improvement in size of collections. [id number], in light of clinical worsening and after discussing the case with surgery, zosyn resume on 02/10/19. Daptomycin added on 02/12/19 to cover possibility of MRSA. Remains on zosyn. ID consulted; Dr Espinosa recommending at least 14 days of treatment. Duration of IV will depend on clinical response. She may have component of skin involvement of the abdominal wall as well. day #8 of IV antibiotics today. Improvement of appetite today is good sign that perhaps we are finally getting ahead of infection. (2) Transient ischemic attack: 02/11/19. Slurred speech with questionable facial droop. Stroke alert called. MRI neg for acute stroke. CTA head/neck w/o stenosis or other findings. no a.fib/flutter since hospital admission. Echo w/o source of thrombus. Seen by Dr Hartmann - neurology - Advised to continue asa 81mg daily while hospitalized then resume plavix for secondary prevention at d/c. Reconsulted PT, OT, and speech therapy. Doing ok from therapy standpoint. PT/OT felt she may be able to return home at d/c. Appreciate Dr Hartmann's assistance and therapy assistance. (3) Anemia: Possibly secondary to acute blood loss (abd fluid collections) but cannot prove they are blood-filled. s/p 2 units PRBCs this admission. H/H modestly lower than previous. Repeat CBC tomorrow am. Will also obtain iron studies, B12, and folic acid. (4) ARF (acute renal failure): resolved peak Cr 1.49 today's Cr 1 repeat BMP am (5) Back Pain: Recent coccyx fracture. no issues. (6) Metabolic encephalopathy: presumed 2nd to infectious process in abdomen. seems resolved. (7) Hyperlipidemia: hold home atorvastatin due to IV daptomycin use (8) Depression: cont fluoxetine (9) Asthma: no exacerbation at this time (10) HTN (hypertension): Discontinued amlodipine due to low-normal BPs Held lisinopril and HCTZ as well Continue beta david (11) GERD (gastroesophageal reflux disease): continue PPI no symptoms (12) Candidiasis of mouth and esophagus: nystatin 5cc qid improving/resolved (13) Hypothyroidism: most recent TSH wnl cont synthroid (14) Obstructive sleep apnea, adult: continue HS BIPAP (15) Chronic kidney disease, stage 3a: stable baseline CrCl <60 (16) Hypokalemia: replace mag level noted to be normal today bmp am (17) DVT prophylaxis: SCDs there has been some concern of blood in her abdominal fluid collections; thus holding off chemical DVT proph multiple family members updated at bedside today questions answered progressing Subjective no issues overnight. ate very well today - confirmed by patient and her family. she c/o feeling tired despite getting adequate rest at night. no abdominal pain. no dyspnea. multiple family members at bedside. Review of Systems Constitutional: no fever and no chills Respiratory: no cough and no dyspnea Cardiovascular: no chest pain, no orthopnea and no paroxysmal nocturnal dyspnea Gastrointestinal: no abdominal pain, no nausea, no vomiting and no diarrhea/loose stools Physical Exam Constitutional: no acute distress and no altered mental status looks tired but overall better in comparison to prior visits ENMT: Mouth: + oral mucosal abnormality (thrush plaques resolved) and + dry oral mucous membranes (no change from yesterday) Respiratory: normal respiratory effort, lungs clear to auscultation Cardiovascular: Rate/Rhythm: regular rate and regular rhythm Heart Sounds: normal S1 and normal S2; no murmur Vessels: posterior tibial pulses present and dorsalis pedis pulses present; no JVD Gastrointestinal (Abdomen): normal bowel sounds, soft, nontender, no hepatosplenomegaly Skin: multiple abdominal wall scars; mild pink skin in the midline in s uprapubic area of pannus; mild pink skin RLQ -- looks similar to yesterday's exam Psychiatric: A+Ox3, euthymic affect Results & Data Vital Signs (Past 12 Hours) Vital Signs Temp Pulse Resp BP Pulse Ox 02/14/19 15:36 36.8 C 70 17 122/68 96 Laboratory Results Laboratory Results - last 24 hr 02/14/19 02/14/19 08:25 08:25 WBC 18.35 H RBC 3.04 L Hgb 8.5 L Hct 25.8 L MCV 84.9 MCH 28.0 MCHC 32.9 RDW Std Deviation 50.7 H RDW Coeff of Elliot 16.3 H Plt Count 315 MPV 7.5 Sodium 138 Potassium 3.4 L Chloride 108 H Carbon Dioxide 20 L Anion Gap 9.0 BUN 24 H Creatinine 1.02 Est Cr Clr Drug Dosing 36.2 Est GFR ( Amer) 57.3 Est GFR (Non-Af Amer) 49.4 BUN/Creatinine Ratio 23.0 H Glucose 112 H Calcium 9.0 Magnesium 2.0 PG Care Time/CCT Total # of Minutes Spent Total Time Spent with Patient: Total time spent is greater than 50% in coordination of care (as documented) at patient's floor/unit and/or counseling patient: (1) ARF (acute renal failure) Acute renal failure type: unspecified Qualified Code(s): N17.9 - Acute kidney failure, unspecified (2) Anemia Anemia type: unspecified type Qualified Code(s): D64.9 - Anemia, unspecified (3) Back Pain Back pain laterality: unspecified Back pain location: low back pain Chronicity: acute Sciatica presence: unspecified whether sciatica present Qualified Code(s): M54.5 - Low back pain (4) Depression Depression Type: other depression Qualified Code(s): F32.89 - Other specified depressive episodes (5) Hyperlipidemia Hyperlipidemia type: mixed hyperlipidemia Qualified Code(s): E78.2 - Mixed hyperlipidemia (6) Hypothyroidism Hypothyroidism type: acquired Qualified Code(s): E03.9 - Hypothyroidism, unspecified (7) GERD (gastroesophageal reflux disease) Esophagitis presence: esophagitis presence not specified Qualified Code(s): K21.9 - Gastro-esophageal reflux disease without esophagitis (8) HTN (hypertension) Hypertension type: essential hypertension Qualified Code(s): I10 - Essential (primary) hypertension (9) Asthma Asthma complication type: uncomplicated Asthma persistence: unspecified Asthma severity: unspecified severity Qualified Code(s): J45.909 - Unspecified asthma, uncomplicated
[2019-02-14] MEDS: FLUOXETINE HCL 20 MG CAP PO SCH (21:34)
[2019-02-15] MEDS ORDERED: METOPROLOL TARTRATE 25 MG TAB PO ONE (00:25)
--- NOTE | 2019-02-15 00:48 | Progress Note ---
Date of Service February 15, 2019 Received a text page from the patient's bedside nurse stating that the patient was noted to have a heart rate of 117. After listening to her heart, the nurse noticed it was irregular. Subsequent EKG noted afib rate [address]-T wave changes. Per nursing report, patient has remained asymptomatic this evening. Saw patient resting comfortably in bed. She denies any chest pain, shortness of breath, or any acute concerns. Her heart is irregularly irregular and her lungs are clear. She has a nasal CPAP in place. Last BP was 105/67. Plan: - Patient is already on metoprolol succinate 100 mg every morning. Will provide a single dose of metoprolol tartrate 25 mg p.o. this evening. - The most recent progress note mentions that the patient remains off of chemical DVT prophylaxis due to ongoing concern for blood in her abdominal fluid collections. Therefore will not start any heparin. - Transfer patient to telemetry for further monitoring. Nathan Paz, PGY3 Overnight call Results & Data Vital Signs (Past 12 Hours) Vital Signs Temp Pulse Pulse Pulse Resp BP Pulse Ox 02/14/19 23:50 99 H 02/14/19 23:30 37.0 C 117 H 17 105/67 94 02/14/19 22:30 73 18 96 02/14/19 15:36 36.8 C 70 17 122/68 96
[2019-02-15] MEDS: PIPERACILLIN/TAZOBACTAM 3.375 GM in DEXTROSE 5% 100 ML IV SCH ×3 (06:07→20:37)
[2019-02-15] MEDS: LEVOTHYROXINE SODIUM 25 MCG TABLET PO SCH (06:07)
[2019-02-15] MEDS: FLUTICASONE/VILANTEROL INHALER INH SCH (08:25)
[2019-02-15] MEDS: POTASSIUM CHLORIDE 10 MEQ TABCR PO SCH ×2 (08:26→20:41)
[2019-02-15] MEDS: FLUOXETINE HCL 10 MG CAP PO SCH (08:26)
[2019-02-15] MEDS: FERROUS SULFATE 325 MG TAB PO SCH ×3 (08:27→16:06)
[2019-02-15] MEDS: CALCIUM CARBONATE 1250MG TAB PO SCH ×2 (08:27→20:42)
[2019-02-15] MEDS: OMEGA-3 (PURIFIED FISH OIL) 1 GM CAP PO SCH (08:27)
[2019-02-15] MEDS: CHOLECALCIFEROL 1,000 UNITS TAB PO SCH (08:27)
[2019-02-15] MEDS: NYSTATIN SUSP 500,000 U/5 ML UDC PO SCH ×4 (08:27→20:43)
[2019-02-15] MEDS: MULTIVITAMIN TAB PO SCH (08:28)
[2019-02-15] MEDS: METOPROLOL SUCC 50MG EXT REL TAB PO SCH (08:28)
[2019-02-15] MEDS: PANTOprazole 40 MG TAB PO SCH (08:28)
[2019-02-15 08:29] LABS: Hematocrit (blood only) 26.2 % (37-47); Hemoglobin 8.5 g/dL (12.0-16.0); Mean Corpuscular Hgb Conc 32.4 g/dL (32-36); Mean Corpuscular Volume 83.4 fL (80-100); Platelet Count 366 K/uL (130-400); RDW Coefficient of Variation 16.4 % (11.5-14.5); RDW Standard Deviation 50.5 fL (36.4-46.3); Red Blood Count 3.14 M/uL (4.2-5.4); White Blood Count 15.89 K/uL (4.8-10.8)
[2019-02-15] MEDS: LACTOBACILLUS ACIDOPHILUS (FLORANEX) TAB PO SCH ×3 (08:29→17:23)
[2019-02-15] MEDS: ASPIRIN 81 MG ECTAB PO SCH (08:44)
[2019-02-15 08:45] LABS: BUN Creatinine Ratio 23.1 (10-20); Calcium 9.3 mg/dl (8.5-10.1); Creatinine Clr Calc Pharmacy 42.4 ml/min; Est GFR (African American) 66.6; Est GFR (Non-African American) 57.5; Potassium 3.7 mmol/L (3.5-5.1)
[2019-02-15 08:50] LABS: Ferritin 1061.8 ng/ml (8-388)
[2019-02-15 08:57] LABS: Folate (Folic Acid) 12.56 ng/ml (>5.38)
[2019-02-15] MEDS ORDERED: SODIUM CHLORIDE 0.9% 1000ML 250 ML IV ONE (11:55)
[2019-02-15] MEDS ORDERED: DIGOXIN 250 MCG in SYRINGE 9 ML IV SCH (12:15)
[2019-02-15] MEDS ORDERED: POTASSIUM CHLORIDE 10 MEQ TABCR PO STA (14:21)
[2019-02-15] MEDS: MAGNESIUM OXIDE 400 MG TAB PO SCH ×2 (16:07→20:43)
--- NOTE | 2019-02-15 18:36 | Hospitalist Progress Note ---
Date of Service February 15, 2019 Assessment & Plan (1) A-fib: Recent echo with preserved EF and normal valvular function. She has no symptoms due to the a.fib. Rates have been >100 despite metoprolol succinate 100mg daily. Her BPs have been low or low-normal her entire stay. Multiple BP meds have been held due to such. I think the next best option for rate control would be digoxin. Will give 2 doses of 250mcg IV today. Continue telemetry. Keep K level near 4 and mag near 2. Suspect that the stress of illness has caused catecholamine surge leading to PAF. CHADS-VASC score is at least a 6. Anticoagulation should be given - especially in light of her recent TIA - but there has been concern that some of the abdominal fluid collections have blood in them. Thus, defer on systemic anticoagulation - at least for now. If digoxin does not help rate control consider cardizem, or could consider amiodarone and chemically cardiovert her. Present on Admission?: No (2) Abdominal wall fluid collections: Clinically improving -- wbc count falling, eating better, no abdominal pain. Fluid collection on CT reviewed by Dr. Khan with radiology on presentation. It was initially felt that the fluid collection was most likely a hematoma only and no concern for abscess. Drainage was not advised. There was suggestion of fistula as well. She has been on IV antibiotics this entire admission except for <[address] scan on 02/10/19 showed modest improvement in size of collections. Daptomycin added on 02/12/19 to cover possibility of MRSA. Remains on zosyn in addition to daptomycin. ID consulted; Dr Espinosa recommending at least 14 days of treatment. Duration of IV will depend on clinical response. She may have component of skin involvement of the abdominal wall as well. day #9 of IV antibiotics today. continue zosyn/daptomycin. continue lactinex. Repeat CBC am. (3) Transient ischemic attack: 02/11/19. Slurred speech with questionable facial droop. Stroke alert called. MRI neg for acute stroke. CTA head/neck w/o stenosis or other findings. Echo w/o source of thrombus. Seen by Dr Hartmann - neurology - Advised to continue asa 81mg daily while hospitalized then resume plavix for secondary prevention at d/c. Reconsulted PT, OT, and speech therapy. PT/OT felt she may be able to return home at d/c. Now that she has developed a.fib, and given high CHADs-VASC score, systemic anticoagulation would be recommended. See above in "a.fib." (4) Anemia: Possibly secondary to acute blood loss (abd fluid collections) but cannot prove they are blood-filled. s/p 2 units PRBCs this admission. H/H moderately low but stable. B12/folate normal. Iron studies c/w ACD. Trans sat < 20 % --- start ferrous sulfate 325mg BID. (5) ARF (acute renal failure): resolved peak Cr 1.49 today's Cr 0.9 repeat BMP am (6) Metabolic encephalopathy: 2nd to infectious process in abdomen. resolved. a/o x 4 today. (7) Hyperlipidemia: hold home atorvastatin due to IV daptomycin use (8) Depression: cont fluoxetine (9) Asthma: no exacerbation at this time (10) HTN (hypertension): Discontinued amlodipine, lisinopril and HCTZ due to low-normal BPs Continue beta david (11) GERD (gastroesophageal reflux disease): continue PPI (12) Candidiasis of mouth and esophagus: nystatin 5cc qid resolved (13) Hypothyroidism: most recent TSH wnl cont synthroid (14) Obstructive sleep apnea, adult: continue HS CPAP (15) Chronic kidney disease, stage 3a: stable baseline CrCl <60 (16) Hypokalemia: replaced/resolved in light of a.fib keep K at 4 or more (17) Back Pain: Recent coccyx fracture. no issues. (18) DVT prophylaxis: SCDs there has been some concern of blood in her abdominal fluid collections; thus holding off chemical DVT proph multiple family members updated at bedside today keep on tele due to a.fib Subjective patient was noted to have rapid HR overnight. EKG obtained and was in rapid a.fib. she was transferred from med/surg back to tele. she has remained in rapid a.fib since with nearly all rates >100. despite the a.fib she has had no cp, dyspnea or palpitations. she actually feels quite good today -- she has told her family she is hungry and has eaten well. no confusion. no abdominal pain either. family at bedside. Review of Systems Constitutional: + fatigue; no fever, no chills and no anorexia Ear, Nose, Mouth, Throat: no mouth lesions and no dry mouth Respiratory: no cough Cardiovascular: no chest pain Physical Exam Constitutional: no acute distress and no altered mental status looks good today ENMT: external ear and nose normal, oropharynx normal Mouth: no oral mucosal abnormality and oral mucous membranes not dry Respiratory: normal respiratory effort, lungs clear to auscultation Auscultation: + rales (scant - bases (dry)); no wheezes Cardiovascular: Rate/Rhythm: + tachycardic and + irregularly irregular Heart Sounds: normal S1 and normal S2; no murmur Vessels: posterior tibial pulses present and dorsalis pedis pulses present; no JVD Gastrointestinal (Abdomen): normal bowel sounds, soft, nontender, no hepatosplenomegaly Skin: like previous exams -- multiple abdominal wall scars; mild erythema/pink skin in midline in suprapubic region; mild erythema with slight warmth on pannus, RLQ Psychiatric: A+Ox3, euthymic affect Results & Data Vital Signs (Past 12 Hours) Vital Signs Temp Pulse Pulse Pulse Resp BP BP 02/15/19 15:09 36.3 C L 115 H 20 102/62 02/15/19 13:49 107 H 80/50 L 02/15/19 13:23 124 H 70/45 L 02/15/19 13:15 119 H 100/70 02/15/19 12:56 119 H 02/15/19 12:07 36.8 C 109 H 18 109/69 02/15/19 10:08 129 H 02/15/19 07:36 36.7 C 83 18 97/60 L 02/15/19 07:33 108 H Pulse Ox 02/15/19 15:09 93 02/15/19 13:49 96 02/15/19 13:23 94 02/15/19 13:15 100 02/15/19 12:56 02/15/19 12:07 94 02/15/19 10:08 02/15/19 07:36 99 02/15/19 07:33 Laboratory Results Laboratory Results - last 24 hr 02/15/19 02/15/19 02/15/19 08:04 08:04 08:04 WBC 15.89 H RBC 3.14 L Hgb 8.5 L Hct 26.2 L MCV 83.4 MCH 27.1 MCHC 32.4 RDW Std Deviation 50.5 H RDW Coeff of Elliot 16.4 H Plt Count 366 MPV 8.0 Sodium 137 Potassium 3.7 Chloride 109 H Carbon Dioxide 21 Anion Gap 8.0 BUN 21 H Creatinine 0.90 Est Cr Clr Drug Dosing 42.4 Est GFR ( Amer) 66.6 Est GFR (Non-Af Amer) 57.5 BUN/Creatinine Ratio 23.1 H Glucose 107 H Calcium 9.3 Iron 14 L Transferrin 79 L Transferrin % Sat 13 L Ferritin 1061.8 H Vitamin B12 474 Folate 12.56 PG Care Time/CCT Total # of Minutes Spent Total Time Spent with Patient: Total time spent is greater than 50% in coordination of care (as documented) at patient's floor/unit and/or counseling patient: (1) Anemia Anemia type: unspecified type Qualified Code(s): D64.9 - Anemia, unspecified (2) ARF (acute renal failure) Acute renal failure type: unspecified Qualified Code(s): N17.9 - Acute kidney failure, unspecified (3) Back Pain Back pain location: low back pain Chronicity: acute Back pain laterality: unspecified Sciatica presence: unspecified whether sciatica present Qualified Code(s): M54.5 - Low back pain (4) Hyperlipidemia Hyperlipidemia type: mixed hyperlipidemia Qualified Code(s): E78.2 - Mixed hyperlipidemia (5) Depression Depression Type: other depression Qualified Code(s): F32.89 - Other specified depressive episodes (6) Asthma Asthma severity: unspecified severity Asthma persistence: unspecified Asthma complication type: uncomplicated Qualified Code(s): J45.909 - Unspecified asthma, uncomplicated (7) HTN (hypertension) Hypertension type: essential hypertension Qualified Code(s): I10 - Essential (primary) hypertension (8) GERD (gastroesophageal reflux disease) Esophagitis presence: esophagitis presence not specified Qualified Code(s): K21.9 - Gastro-esophageal reflux disease without esophagitis (9) Hypothyroidism Hypothyroidism type: acquired Qualified Code(s): E03.9 - Hypothyroidism, unspecified (10) A-fib Atrial fibrillation type: unspecified Qualified Code(s): I48.91 - Unspecified atrial fibrillation
[2019-02-15] MEDS ORDERED: DIGOXIN 250 MCG in SYRINGE 9 ML IV ONE (19:00)
[2019-02-15] MEDS: DAPTOmycin 300 MG in SYRINGE 0 ML IV SCH (20:20)
[2019-02-15] MEDS: FLUOXETINE HCL 20 MG CAP PO SCH (20:41)
[2019-02-16] MEDS: PIPERACILLIN/TAZOBACTAM 3.375 GM in DEXTROSE 5% 100 ML IV SCH ×3 (04:52→21:12)
[2019-02-16] MEDS: LEVOTHYROXINE SODIUM 25 MCG TABLET PO SCH (06:10)
[2019-02-16 06:15] LABS: Hematocrit (blood only) 24.6 % (37-47); Hemoglobin 7.9 g/dL (12.0-16.0); Mean Corpuscular Hgb Conc 32.1 g/dL (32-36); Mean Corpuscular Volume 84.2 fL (80-100); Mean Platelet Volume 7.8 fL (7.4-10.4); Platelet Count 355 K/uL (130-400); RDW Coefficient of Variation 16.5 % (11.5-14.5); Red Blood Count 2.92 M/uL (4.2-5.4); White Blood Count 13.97 K/uL (4.8-10.8)
[2019-02-16 06:54] LABS: BUN Creatinine Ratio 23.2 (10-20); Calcium 8.9 mg/dl (8.5-10.1); Creatinine Clr Calc Pharmacy 36.7 ml/min; Est GFR (African American) 55.9; Est GFR (Non-African American) 48.3; Potassium 4.2 mmol/L (3.5-5.1)
[2019-02-16] MEDS: ASPIRIN 81 MG ECTAB PO SCH (08:14)
[2019-02-16] MEDS: POTASSIUM CHLORIDE 10 MEQ TABCR PO SCH ×2 (08:14→21:13)
[2019-02-16] MEDS: FLUTICASONE/VILANTEROL INHALER INH SCH (08:14)
[2019-02-16] MEDS: MAGNESIUM OXIDE 400 MG TAB PO SCH ×2 (08:14→21:13)
[2019-02-16] MEDS: FERROUS SULFATE 325 MG TAB PO SCH ×4 (08:14→17:11)
[2019-02-16] MEDS: OMEGA-3 (PURIFIED FISH OIL) 1 GM CAP PO SCH (08:15)
[2019-02-16] MEDS: MULTIVITAMIN TAB PO SCH (08:15)
[2019-02-16] MEDS: METOPROLOL SUCC 50MG EXT REL TAB PO SCH (08:15)
[2019-02-16] MEDS: PANTOprazole 40 MG TAB PO SCH (08:15)
[2019-02-16] MEDS: LACTOBACILLUS ACIDOPHILUS (FLORANEX) TAB PO SCH ×3 (08:16→17:10)
[2019-02-16] MEDS: CHOLECALCIFEROL 1,000 UNITS TAB PO SCH (08:16)
[2019-02-16] MEDS: FLUOXETINE HCL 10 MG CAP PO SCH (08:16)
[2019-02-16] MEDS: CALCIUM CARBONATE 1250MG TAB PO SCH ×2 (08:16→21:14)
[2019-02-16] MEDS: NYSTATIN SUSP 500,000 U/5 ML UDC PO SCH ×4 (08:17→21:13)
[2019-02-16] MEDS ORDERED: SODIUM CHLORIDE 0.9% 250 ML IV PRN (10:29)
[2019-02-16 10:46] LABS: Hematocrit (blood only) 25.2 % (37-47); Hemoglobin 8.3 g/dL (12.0-16.0)
[2019-02-16] MEDS ORDERED: SODIUM CHLORIDE 0.9% 1000ML 1,000 ML IV SCH (12:15)
--- NOTE | 2019-02-16 15:04 | Infectious Disease Progress Nt ---
Date of Service February 16, 2019 Assessment & Plan (1) Abscess of abdominal wall: 88-year-old female with what appears to be infected hematoma or seroma with possible fistulous connection to colon. Unable to determine whether there is a component of infected mesh as well. Given clinical improvement on antibiotics, and inability to pursue further surgical intervention, would recommend continuing antibiotics IV for 14 days with follow-up CT scan to ensure improvement. Will then likely transition to oral antibiotics. If outpatient therapy desires, would consider use of ertapenem. Will discuss with all involved. Will follow. Subjective patient was noted to have rapid HR overnight. EKG obtained and was in rapid a.fib. Feeling better today, abdominal pain much improved, afebrile, appetite better. White count improving, cultures remain negative. Review of Systems Review of Systems: All systems reviewed & are unremarkable except as noted in HPI & below Physical Exam Constitutional: WD/WN, vitals as above no acute distress Eyes: PERRL, conjunctivae normal, anicteric sclerae ENMT: external ear and nose normal, oropharynx normal Neck: trachea midline, no thyromegaly normal visual inspection Respiratory: normal respiratory effort, lungs clear to auscultation normal percussion Cardiovascular: RRR, no murmur, no edema Heart Sounds: no gallop and no cardiac rub Gastrointestinal (Abdomen): normal bowel sounds, soft, nontender, no hepatosplenomegaly Inspection/Auscultation: + abdomen distended Percussion/Palpation: no abdominal mass Musculoskeletal: Head/Neck/Chest: normocephalic, head atraumatic and neck supple Extremities: strength 5/5 throughout Skin: no rashes, warm and dry normal turgor Neurologic: moves all extremities; no focal motor deficits Speech / Cognition: normal speech Psychiatric: A+Ox3, euthymic affect Lymphatic: no cervical or axillary lymphadenopathy no inguinal lymphadenopathy Results & Data Vital Signs (Past 12 Hours) Vital Signs Temp Pulse Pulse Pulse Resp BP BP 02/16/19 11:36 36.6 C 64 18 134/69 02/16/19 11:01 16 02/16/19 07:52 36.4 C L 71 20 119/54 L 02/16/19 04:32 37.1 C 70 18 106/62 Pulse Ox 02/16/19 11:36 97 02/16/19 11:01 95 02/16/19 07:52 92 02/16/19 04:32 93 Laboratory Results Short CBC 02/16/19 02/16/19 Range/Units 05:55 10:36 WBC 13.97 H (4.8-10.8) K/uL Hgb 7.9 L 8.3 L (12.0-16.0) g/dL Hct 24.6 L 25.2 L (37-47) % Plt Count 355 (130-400) K/uL BMP 02/16/19 05:55 Sodium 137 Potassium 4.2 Chloride 108 H Carbon Dioxide 22 BUN 24 H Creatinine 1.04 Glucose 98 Calcium 8.9 Diagnostic Findings Microbiology 02/06/19 15:05 Blood Aerobic Blood Culture - Final No growth in Aerobic bottle after 5 days. 02/06/19 15:05 Blood Anaerobic Blood Culture - Final No growth in Anaerobic bottle after 5 days. 02/06/19 15:05 Blood Aerobic Blood Culture - Final No growth in Aerobic bottle after 5 days. 02/06/19 15:05 Blood Anaerobic Blood Culture - Final No growth in Anaerobic bottle after 5 days. 02/06/19 19:50 Urine,Clean Catch Urine Culture - Final More than three types of organisms present, all high counts mixed probable skin tierney - No further identifications or sensitivities to follow.
[2019-02-16] MEDS ORDERED: IOVERSOL 100ml IV PRN (15:14)
--- NOTE | 2019-02-16 15:39 | CT Scan Report ---
CT OF THE ABDOMEN AND PELVIS WITH CONTRAST CLINICAL HISTORY: infected seroma(s), interval change; ?fistula COMPARISON STUDY: CT of the abdomen and pelvis February 10, 2019. TECHNIQUE: Following IV administration of 93 mL of Optiray-320, axial images of the abdomen and pelvi s were obtained from the lung bases to the proximal femurs. Images were reviewed in the axial, sagitt al, and coronal planes. IV contrast was administered without complication. Automated exposure contro l was utilized for the study. A dose lowering technique was utilized adhering to the principles of A KARMA. Oral contrast was administered. CT DOSE: 1094.32 mGy.cm FINDINGS: Imaged portions the lower chest demonstrate a trace left pleural effusion with left basilar atelectasis. There is moderate cardiomegaly. No pneumatosis is present. The liver, spleen, adrenal g lands and pancreas are unremarkable. Mild biliary ductal dilatation is unchanged and likely related t o previous cholecystectomy. A 2.2 cm calculus within the upper pole of the right kidney with scarring is noted. Left renal lesions favor cysts. There are small bilateral renal calculi. There are no uret eral calculi. There is no hydronephrosis or hydroureter. No evidence for a bowel obstruction. Colonic diverticulosis is noted without evidence for acute diverticulitis. A 25 cm x 7.5 cm complex collecti on within the subcutaneous tissues of the anterior abdominal wall has slightly increased in size sinc e CT of February 10, 2019. This contains several locules of gas and minimal layering hyperdense material within the inferior aspect of this collection. There is an associated gas and fluid containing commun ication between this collection that extends to the peritoneal cavity. This is adjacent to the transv erse colon. The appearance is unchanged. No suspicious osseous lesions are noted. IMPRESSION: 1. Slight increase in size of a large fluid collection within the subcutaneous tissues of the anterio r abdominal wall since CT of February 10, 2019. This contains several locules of gas with minimal layerin g hyperdense material and adjacent infiltration. This suggests a seroma, possibly infected. 2. Underlying gas and fluid containing tract that extends to the abdominal cavity and abuts the trans verse colon. Underlying fistula cannot be excluded. No change in appearance. Electronically signed by: Guilherme Martinez M.D. 02/16/2019 3:36 PM
--- NOTE | 2019-02-16 19:14 | Hospitalist Progress Note ---
Date of Service February 16, 2019 Assessment & Plan (1) Abdominal wall fluid collections: Fluid collection on CT reviewed by Dr. Khan with radiology on presentation. It was initially felt that the fluid collection was most likely a hematoma only and no concern for abscess. Drainage was not advised. There was suggestion of fistula as well. She has been on IV antibiotics this entire admission except for <[address] scan on 02/10/19 showed modest improvement in size of collections. Daptomycin added on 02/12/19 to cover possibility of MRSA. Remains on zosyn in addition to daptomycin. She may have component of skin involvement of the abdominal wall as well. day #10 of IV antibiotics today. continue zosyn/daptomycin. continue lactinex. Because of ongoing fatigue and waxing/waning appetite I elected to repeat her CT scan w/ IV/PO contrast. The large fluid collection may be slightly larger. I spoke with Dr Espinosa - we may need to treat this longer -- initially we were thinking 14 days if IV/PO abx. She may need 21-28 days and perhaps all IV. Would this be amenable to IR drainage?? Will review the CT with radiology. (2) A-fib: Recent echo with preserved EF and normal valvular function. She had no symptoms due to the a.fib. Suspect that the stress of illness caused catecholamine surge leading to PAF. The PAF resolved overnight. She had poor rate control despite oral BB and 2 doses of IV digoxin. CHADS-VASC score is at least a 6. Anticoagulation should be given - especially in light of her recent TIA - but there has been concern that some of the abdominal fluid collections have blood in them. Thus, defer on systemic anticoagulation - at least for now. Additionally, if she ever needed drainage, will hold off for now on systemic anticoagulation. (3) Transient ischemic attack: 02/11/19. Slurred speech with questionable facial droop. Stroke alert called. MRI neg for acute stroke. CTA head/neck w/o stenosis or other findings. Echo w/o source of thrombus. Seen by Dr Hartmann - neurology - Advised to continue asa 81mg daily while hospitalized then resume plavix for secondary prevention at d/c. Reconsulted PT, OT, and speech therapy. PT/OT felt she may be able to return home at d/c. Now that she has developed a.fib, and given high CHADs-VASC score, systemic anticoagulation would be recommended. See above in "a.fib." (4) Anemia: Possibly secondary to acute blood loss (abd fluid collections) but cannot prove they are blood-filled. s/p 2 units PRBCs earlier this admission. Hb today 8.3; was 9.3 on day of admission. B12/folate normal. Iron studies c/w ACD. Trans sat < 20 % --- cont ferrous sulfate 325mg BID. Repeat CBC in am. Would Tx if Hb <8. (5) ARF (acute renal failure): resolved peak Cr 1.49 Cr last few days 0.9-1 repeat BMP am (6) Metabolic encephalopathy: 2nd to infectious process in abdomen. resolved. (7) Hyperlipidemia: hold home atorvastatin due to IV daptomycin use (8) Depression: cont fluoxetine (9) Asthma: no exacerbation at this time (10) HTN (hypertension): Discontinued amlodipine, lisinopril and HCTZ due to low-normal BPs Continue beta david BP controlled (11) GERD (gastroesophageal reflux disease): continue PPI (12) Candidiasis of mouth and esophagus: nystatin 5cc qid resolved (13) Hypothyroidism: most recent TSH wnl cont synthroid (14) Obstructive sleep apnea, adult: continue HS CPAP (15) Chronic kidney disease, stage 3a: stable baseline CrCl <60 (16) DVT prophylaxis: SCDs there has been some concern of blood in her abdominal fluid collections; thus holding off chemical DVT proph , daughter updated at bedside Subjective converted from a.fib to NSR last pm about 2200. has remained in NSR since then. she is fatigued today and appetite is only fair. denies any abd pain, nausea, vomiting, diarrhea. no fevers. daughter and at bedside - questions answered. Review of Systems Constitutional: + fatigue, + weakness and + anorexia Ear, Nose, Mouth, Throat: + dry mouth; no dysphagia and no pain with swallowing Respiratory: no cough and no dyspnea Cardiovascular: no chest pain Gastrointestinal: no abdominal pain, no nausea and no vomiting Physical Exam Constitutional: no acute distress and no altered mental status ENMT: external ear and nose normal, oropharynx normal Mouth: + dry oral mucous membranes; no oral mucosal abnormality (thrush plaques absent) Respiratory: normal respiratory effort, lungs clear to auscultation Auscultation: no crackles and no wheezes Cardiovascular: Rate/Rhythm: regular rate and regular rhythm Heart Sounds: normal S1 and normal S2; no murmur Vessels: posterior tibial pulses present and dorsalis pedis pulses present; no JVD Extremities: no edema Gastrointestinal (Abdomen): normal bowel sounds, soft, nontender, no hepatosplenomegaly Skin: pink skin/erythema of abdominal wall - right inferior abdominal wall/pannus as well as in midline pannus -- no change from yesterday; still mildly warm. numerous scars throughout the abdominal wall. Psychiatric: A+Ox3, euthymic affect Results & Data Vital Signs (Past 12 Hours) Vital Signs Temp Pulse Pulse Pulse Resp BP BP 02/16/19 15:43 36.4 C L 63 18 112/66 02/16/19 11:36 36.6 C 64 18 134/69 02/16/19 11:01 16 02/16/19 07:52 36.4 C L 71 20 119/54 L Pulse Ox 02/16/19 15:43 95 02/16/19 11:36 97 02/16/19 11:01 95 02/16/19 07:52 92 Laboratory Results Laboratory Results - last 24 hr 02/16/19 02/16/19 02/16/19 05:55 05:55 05:55 WBC 13.97 H RBC 2.92 L Hgb 7.9 L Hct 24.6 L MCV 84.2 MCH 27.1 MCHC 32.1 RDW Std Deviation 51.0 H RDW Coeff of Elliot 16.5 H Plt Count 355 MPV 7.8 Sodium 137 Potassium 4.2 Chloride 108 H Carbon Dioxide 22 Anion Gap 7.0 BUN 24 H Creatinine 1.04 Est Cr Clr Drug Dosing 36.7 Est GFR ( Amer) 55.9 Est GFR (Non-Af Amer) 48.3 BUN/Creatinine Ratio 23.2 H Glucose 98 POC Glucose Calcium 8.9 Digoxin 1.5 Blood Type Antibody Screen Crossmatch 02/16/19 02/16/19 02/16/19 07:35 10:36 10:36 WBC RBC Hgb 8.3 L Hct 25.2 L MCV MCH MCHC RDW Std Deviation RDW Coeff of Elliot Plt Count MPV Sodium Potassium Chloride Carbon Dioxide Anion Gap BUN Creatinine Est Cr Clr Drug Dosing Est GFR ( Amer) Est GFR (Non-Af Amer) BUN/Creatinine Ratio Glucose POC Glucose 109 H Calcium Digoxin Blood Type O Positive Antibody Screen NEGATIVE Crossmatch See Detail PG Care Time/CCT Total # of Minutes Spent Total Time Spent with Patient: Total time spent is greater than 50% in coordination of care (as documented) at patient's floor/unit and/or counseling patient: (1) ARF (acute renal failure) Acute renal failure type: unspecified Qualified Code(s): N17.9 - Acute kidney failure, unspecified (2) Anemia Anemia type: unspecified type Qualified Code(s): D64.9 - Anemia, unspecified (3) A-fib Atrial fibrillation type: unspecified Qualified Code(s): I48.91 - Unspecified atrial fibrillation (4) Depression Depression Type: other depression Qualified Code(s): F32.89 - Other specified depressive episodes (5) Hyperlipidemia Hyperlipidemia type: mixed hyperlipidemia Qualified Code(s): E78.2 - Mixed hyperlipidemia (6) Hypothyroidism Hypothyroidism type: acquired Qualified Code(s): E03.9 - Hypothyroidism, unspecified (7) GERD (gastroesophageal reflux disease) Esophagitis presence: esophagitis presence not specified Qualified Code(s): K21.9 - Gastro-esophageal reflux disease without esophagitis (8) HTN (hypertension) Hypertension type: essential hypertension Qualified Code(s): I10 - Essential (primary) hypertension (9) Asthma Asthma complication type: uncomplicated Asthma persistence: unspecified Asthma severity: unspecified severity Qualified Code(s): J45.909 - Unspecified asthma, uncomplicated
[2019-02-16] MEDS: DAPTOmycin 300 MG in SYRINGE 0 ML IV SCH (21:11)
[2019-02-16] MEDS: FLUOXETINE HCL 20 MG CAP PO SCH (21:15)
[2019-02-17] MEDS: PIPERACILLIN/TAZOBACTAM 3.375 GM in DEXTROSE 5% 100 ML IV SCH ×3 (05:33→20:44)
[2019-02-17 06:30] LABS: Hematocrit (blood only) 24.6 % (37-47); Hemoglobin 7.9 g/dL (12.0-16.0); Mean Corpuscular Hgb Conc 32.1 g/dL (32-36); Mean Corpuscular Volume 85.7 fL (80-100); Mean Platelet Volume 7.8 fL (7.4-10.4); Platelet Count 390 K/uL (130-400); RDW Coefficient of Variation 16.8 % (11.5-14.5); RDW Standard Deviation 53.2 fL (36.4-46.3); Red Blood Count 2.87 M/uL (4.2-5.4); White Blood Count 13.87 K/uL (4.8-10.8)
[2019-02-17] MEDS: LEVOTHYROXINE SODIUM 25 MCG TABLET PO SCH (06:41)
[2019-02-17 07:03] LABS: BUN Creatinine Ratio 22.7 (10-20); Creatinine Clr Calc Pharmacy 40.6 ml/min; Est GFR (Non-African American) 55.3; Potassium 4.3 mmol/L (3.5-5.1)
[2019-02-17 07:18] LABS: Basophils # (auto) 0.05 K/uL (0-0.2); Basophils % (auto) 0.4 %; Eosinophils # (auto) 0.36 K/uL (0-0.5); Eosinophils % (auto) 2.6 %; Immature Granulocytes # (auto) 0.08 K/uL (0.00-0.02); Immature Granulocytes % (auto) 0.6 %; Lymphocytes # (auto) 0.59 K/uL (1.2-3.4); Lymphocytes % (auto) 4.3 %; Monocytes # (auto) 1.09 K/uL (0.11-0.59); Monocytes % (auto) 7.9 %; Neutrophils % (auto) 84.2 %; Ovalocytes 1+
[2019-02-17] MEDS: METOPROLOL SUCC 50MG EXT REL TAB PO SCH (08:31)
[2019-02-17] MEDS: LACTOBACILLUS ACIDOPHILUS (FLORANEX) TAB PO SCH ×3 (08:31→17:08)
[2019-02-17] MEDS: MULTIVITAMIN TAB PO SCH (08:32)
[2019-02-17] MEDS: NYSTATIN SUSP 500,000 U/5 ML UDC PO SCH ×4 (08:32→20:42)
[2019-02-17] MEDS: CHOLECALCIFEROL 1,000 UNITS TAB PO SCH (08:32)
[2019-02-17] MEDS: PANTOprazole 40 MG TAB PO SCH (08:32)
[2019-02-17] MEDS: MAGNESIUM OXIDE 400 MG TAB PO SCH ×2 (08:33→20:43)
[2019-02-17] MEDS: ASPIRIN 81 MG ECTAB PO SCH (08:33)
[2019-02-17] MEDS: FERROUS SULFATE 325 MG TAB PO SCH ×2 (08:33→17:09)
[2019-02-17] MEDS: CALCIUM CARBONATE 1250MG TAB PO SCH ×2 (08:35→20:43)
[2019-02-17] MEDS: OMEGA-3 (PURIFIED FISH OIL) 1 GM CAP PO SCH (08:35)
[2019-02-17] MEDS: FLUTICASONE/VILANTEROL INHALER INH SCH (08:35)
[2019-02-17] MEDS: POTASSIUM CHLORIDE 10 MEQ TABCR PO SCH ×2 (08:35→20:44)
[2019-02-17] MEDS: FLUOXETINE HCL 10 MG CAP PO SCH (08:36)
--- NOTE | 2019-02-17 14:10 | Progress Note ---
Date of Service February 17, 2019 Assessment & Plan (1) Seroma: see plan per Dr Cardoso- persistent, sl larger abd wall fluid collection seroma/ possible hematoma from trauma- considering aspiration by radiologists to assess for infection- if positive may require operative drainage and wound vac. Subjective see a/p Results & Data Vital Signs (Past 12 Hours) Vital Signs Temp Pulse Resp BP BP Pulse Ox 02/17/19 11:50 36.3 C L 96 H 20 110/62 96 02/17/19 08:03 36.6 C 66 20 119/52 L 95 02/17/19 03:05 36.7 C 65 20 122/67 93
[2019-02-17] MEDS ORDERED: SODIUM CHLORIDE 0.9% 250 ML IV PRN (14:16)
--- NOTE | 2019-02-17 17:31 | Hospitalist Progress Note ---
Date of Service February 17, 2019 Assessment & Plan (1) Abdominal wall fluid collections: Fluid collection initially felt to be a hematoma with no concern for abscess. Drainage was not pursued. Fistula also felt to be present. Shortly after, however, there was growing concern for an infected seroma and thus IV antibiotics were started. She has been on IV antibiotics this entire admission except for <[address] scan on 02/10/19 showed modest improvement in size of collections. CT scan on 02/16/19 actually showed mild worsening/enlargement. Daptomycin added on 02/12/19 to cover possibility of MRSA. Remains on zosyn in addition to daptomycin. She may have component of skin involvement of the abdominal wall as well. day #11 of IV antibiotics today. continue zosyn/daptomycin. continue lactinex. The patient has made limited progress on all fronts this admission. Thus, I spoke with radiology today who stated the fluid collection would be amenable to drainage procedure (or at least getting some fluid for analysis/culture). Will attempt this on Tuesday. I also spoke with Dr Pablo from gen surg who agrees with plan for radiology to drain the collection on Tuesday. The results of the procedure would then dictate whether additional procedures are necessary. Present on Admission?: Yes (2) A-fib: PAF x 24 hours this admission - resolved. Back in NSR for 2 days. Recent echo with preserved EF and normal valvular function. She had no symptoms when she was in a.fib. Suspect that the stress of illness caused catecholamine surge leading to PAF. The PAF resolved 2 days ago. She had poor rate control despite oral BB and 2 doses of IV digoxin when she had it. CHADS-VASC score is at least a 6. Anticoagulation should be given - especially in light of her recent TIA - but there has been concern that some of the abdominal fluid collections have blood in them. Thus, defer on systemic anticoagulation - at least for now. Additionally, if she ever needed drainage, will hold off for now on systemic anticoagulation. (3) Transient ischemic attack: 02/11/19. Slurred speech with questionable facial droop. MRI neg for acute stroke. CTA head/neck w/o stenosis or other findings. Echo w/o source of thrombus. Seen by Dr Hartmann - neurology - Advised to continue asa 81mg daily while hospitalized then resume plavix for secondary prevention at d/c. Reconsulted PT, OT, and speech therapy. In light of PAF and high CHADs-VASC score systemic anticoagulation would ultimately be recommended. See above in "a.fib." (4) Anemia: Possibly secondary to acute blood loss (abd fluid collections) but cannot prove they are blood-filled. s/p 2 units PRBCs earlier this admission. B12/folate normal. Iron studies c/w ACD. Trans sat < 20 % --- cont ferrous sulfate 325mg BID. Hb 7.9 today -- will transfuse 1 unit PRBCs. This may help fatigue and overall constitution. (5) ARF (acute renal failure): resolved peak Cr 1.49 Cr last few days 0.9-1 repeat BMP am (6) Metabolic encephalopathy: 2nd to infectious process in abdomen. resolved. has not recurred. (7) Hyperlipidemia: hold home atorvastatin due to IV daptomycin use (8) Depression: cont fluoxetine could consider increase to 30mg daily (9) Asthma: no exacerbation (10) HTN (hypertension): Discontinued amlodipine, lisinopril and HCTZ due to low-normal BPs Continue beta david BP controlled Blood should help support BPs as well (11) GERD (gastroesophageal reflux disease): continue PPI (12) Candidiasis of mouth and esophagus: nystatin 5cc qid x 7 days the stop; day 6 today resolved (13) Hypothyroidism: most recent TSH wnl cont synthroid (14) Obstructive sleep apnea, adult: continue HS CPAP (15) Chronic kidney disease, stage 3a: stable baseline CrCl <60 BMP am (16) DVT prophylaxis: SCDs there has been some concern of blood in her abdominal fluid collections from prior trauma; thus holding off chemical DVT proph , daughter updated at bedside once again today they are aware of plan to attempt drainage of fluid collection on Tuesday Subjective , daughter, son-in-law at bedside tele with NSR x 24 hours apparently sat in chair for 3-4 hours this am followed by walk following these activities she was very tired in fact during the visit she could barely keep her eyes open Review of Systems Constitutional: + fatigue; no fever and no anorexia Respiratory: no cough and no dyspnea Cardiovascular: no chest pain and no orthopnea Gastrointestinal: no abdominal pain, no nausea and no vomiting Physical Exam Constitutional: no acute distress and no altered mental status (a/o x 3 but VERY sleepy ) ENMT: external ear and nose normal, oropharynx normal Respiratory: normal respiratory effort, lungs clear to auscultation Auscultation: no crackles and no wheezes Cardiovascular: Rate/Rhythm: regular rate and regular rhythm Heart Sounds: normal S1 and normal S2; no murmur Vessels: posterior tibial pulses present and dorsalis pedis pulses present; no JVD Extremities: no edema Gastrointestinal (Abdomen): normal bowel sounds, soft, nontender, no hepatosplenomegaly Inspection/Auscultation: + abdomen distended (mild) Skin: multiple surgical scars on abdominal wall; pink/erythematous skin on RLQ pannus is unchanged; still warm to touch; midline pannus also still pink and warm to touch Results & Data Vital Signs (Past 12 Hours) Vital Signs Temp Pulse Pulse Resp BP BP Pulse Ox 02/17/19 14:44 36.7 C 63 18 133/69 02/17/19 11:50 36.3 C L 96 H 20 110/62 96 02/17/19 08:03 36.6 C 66 20 119/52 L 95 Laboratory Results Laboratory Results - last 24 hr 02/08/19 02/16/19 02/17/19 05:22 10:36 06:11 WBC 13.87 H RBC 2.87 L Hgb 7.9 L Hct 24.6 L MCV 85.7 MCH 27.5 MCHC 32.1 RDW Std Deviation 53.2 H RDW Coeff of Elliot 16.8 H Plt Count 390 MPV 7.8 Immature Gran % (Auto) 0.6 Neut % (Auto) 84.2 Lymph % (Auto) 4.3 Smyth % (Auto) 7.9 Eos % (Auto) 2.6 Baso % (Auto) 0.4 Immature Gran # (Auto) 0.08 H Neut # (Auto) 11.70 H Lymph # (Auto) 0.59 L Smyth # (Auto) 1.09 H Eos # (Auto) 0.36 Baso # (Auto) 0.05 Ovalocytes 1+ Sodium Potassium Chloride Carbon Dioxide Anion Gap BUN Creatinine Est Cr Clr Drug Dosing Est GFR ( Amer) Est GFR (Non-Af Amer) BUN/Creatinine Ratio Glucose Calcium Blood Type O Positive Antibody Screen NEGATIVE Crossmatch See Detail See Detail 02/17/19 06:11 WBC RBC Hgb Hct MCV MCH MCHC RDW Std Deviation RDW Coeff of Elliot Plt Count MPV Immature Gran % (Auto) Neut % (Auto) Lymph % (Auto) Smyth % (Auto) Eos % (Auto) Baso % (Auto) Immature Gran # (Auto) Neut # (Auto) Lymph # (Auto) Smyth # (Auto) Eos # (Auto) Baso # (Auto) Ovalocytes Sodium 137 Potassium 4.3 Chloride 108 H Carbon Dioxide 21 Anion Gap 8.0 BUN 21 H Creatinine 0.93 Est Cr Clr Drug Dosing 40.6 Est GFR ( Amer) 64.0 Est GFR (Non-Af Amer) 55.3 BUN/Creatinine Ratio 22.7 H Glucose 91 Calcium 9.0 Blood Type Antibody Screen Crossmatch PG Care Time/CCT Total # of Minutes Spent Total Time Spent with Patient: Total time spent is greater than 50% in coordination of care (as documented) at patient's floor/unit and/or counseling patient: (1) A-fib Atrial fibrillation type: unspecified Qualified Code(s): I48.91 - Unspecified atrial fibrillation (2) Anemia Anemia type: unspecified type Qualified Code(s): D64.9 - Anemia, unspecified (3) ARF (acute renal failure) Acute renal failure type: unspecified Qualified Code(s): N17.9 - Acute kidney failure, unspecified (4) Hyperlipidemia Hyperlipidemia type: mixed hyperlipidemia Qualified Code(s): E78.2 - Mixed hyperlipidemia (5) Depression Depression Type: other depression Qualified Code(s): F32.89 - Other specified depressive episodes (6) Asthma Asthma severity: unspecified severity Asthma persistence: unspecified Asthma complication type: uncomplicated Qualified Code(s): J45.909 - Unspecified asthma, uncomplicated (7) HTN (hypertension) Hypertension type: essential hypertension Qualified Code(s): I10 - Essential (primary) hypertension (8) GERD (gastroesophageal reflux disease) Esophagitis presence: esophagitis presence not specified Qualified Code(s): K21.9 - Gastro-esophageal reflux disease without esophagitis (9) Hypothyroidism Hypothyroidism type: acquired Qualified Code(s): E03.9 - Hypothyroidism, unspecified
[2019-02-17] MEDS: DAPTOmycin 300 MG in SYRINGE 0 ML IV SCH (20:42)
[2019-02-17] MEDS: FLUOXETINE HCL 20 MG CAP PO SCH (20:42)
[2019-02-18] MEDS: PIPERACILLIN/TAZOBACTAM 3.375 GM in DEXTROSE 5% 100 ML IV SCH ×3 (05:09→21:11)
[2019-02-18] MEDS: LEVOTHYROXINE SODIUM 25 MCG TABLET PO SCH (06:07)
[2019-02-18 06:57] LABS: Hematocrit (blood only) 27.8 % (37-47); Hemoglobin 9.3 g/dL (12.0-16.0); Mean Corpuscular Hgb Conc 33.5 g/dL (32-36); Mean Corpuscular Volume 85.3 fL (80-100); Mean Platelet Volume 7.9 fL (7.4-10.4); Platelet Count 438 K/uL (130-400); RDW Coefficient of Variation 16.6 % (11.5-14.5); RDW Standard Deviation 51.9 fL (36.4-46.3); Red Blood Count 3.26 M/uL (4.2-5.4); White Blood Count 13.27 K/uL (4.8-10.8)
[2019-02-18 07:28] LABS: BUN Creatinine Ratio 24.8 (10-20); Calcium 9.1 mg/dl (8.5-10.1); Creatinine Clr Calc Pharmacy 42.7 ml/min; Est GFR (African American) 66.6; Est GFR (Non-African American) 57.5; Potassium 4.4 mmol/L (3.5-5.1)
--- NOTE | 2019-02-18 08:50 | Anesthesiology Consultation ---
Date of Service February 18, 2019 Assessment & Plan Chart Review Chart Review: Acceptable Risk for Surgery and Patient NOT seen in Pre Admission Testing Patient has had 3 units pRBC's transfused this admission, most recent was 1 unit on 02/16/2019. previous stroke, left sided weaknesd. Consults Requested none History Surgery Operation Date: 02/18/19 09:45 Proposed Procedures p Incision and Drainage General - Armando Pablo MD, FACS Height/Weight Height: 5 ft 2 in Weight: 78.3 kg Allergies Allergy/AdvReac Type Severity Reaction Status Date / Time oxycodone Allergy Mild RASH Verified 02/06/19 11:01 alendronate sodium Allergy Unknown [facility] LIST Verified 02/06/19 11:01 Bactrim Allergy Unknown [facility] LIST Verified 02/07/18 04:16 cefuroxime Allergy Unknown UNKNOWN ON Verified 02/06/19 11:01 LIST Cipro Allergy Unknown Unknown Verified 02/07/18 21:42 ciprofloxacin Allergy Unknown UNKNOWN ON Verified 02/06/19 11:01 LIST codeine Allergy Unknown UNKNOWN ON Verified 02/06/19 11:01 LIST gabapentin Allergy Unknown UNKNOWN ON Verified 02/06/19 11:01 LIST meperidine Allergy Unknown UNKNOWN ON Verified 02/06/19 11:01 LIST propoxyphene Allergy Unknown UNKNOWN ON Verified 02/06/19 11:01 LIST Sulfa (Sulfonamide Allergy Unknown UNKNOWN ON Verified 02/06/19 11:01 Antibiotics) LIST sulfamethoxazole Allergy Unknown [facility] LIST Verified 02/06/19 11:01 trimethoprim Allergy Unknown [facility] LIST Verified 02/06/19 11:01 amphetamine AdvReac Severe UNKNOWN ON Verified 02/06/19 11:01 LIST dextroamphetamine AdvReac Severe UNKNOWN ON Verified 02/06/19 11:01 LIST hydrochlorothiazide AdvReac Intermediate GI DISTRESS Verified 02/06/19 11:01 methyldopa AdvReac Intermediate GI DISTRESS Verified 02/06/19 11:01 Medications Home Medications Medication Instructions Recorded Confirmed Last Taken Lactobacillus acidophilus 100 mg PO DAILY 12/26/18 02/06/19 02/06/19 09:00 [Acidophilus] albuterol sulfate [Ventolin HFA] 1 - 2 puff INHALATION Q4 PRN 12/26/18 02/06/19 Unknown amlodipine 10 mg PO DAILY 12/26/18 02/06/19 02/06/19 09:00 atorvastatin 20 mg PO DAILY 12/26/18 02/06/19 02/06/19 09:00 calcium carbonate 300 mg PO BID 12/26/18 02/06/19 02/06/19 09:00 cholecalciferol (vitamin D3) 2,000 unit PO DAILY 12/26/18 02/06/19 02/06/19 09:00 [Vitamin D3] fluoxetine 10 mg PO QAM 12/26/18 02/06/19 02/06/19 09:00 fluoxetine 20 mg PO QPM 12/26/18 02/06/19 12/25/18 fluticasone furoate-vilanterol 1 inh INHALATION DAILY 12/26/18 02/06/19 02/06/19 09:00 [Breo Ellipta] metoprolol succinate 100 mg PO DAILY 12/26/18 02/06/19 02/06/19 09:00 multivitamin 1 tab PO DAILY 12/26/18 02/06/19 02/06/19 09:00 omega 3-xgj-byv-fish oil [Fish Oil] 1 cap PO DAILY 12/26/18 02/06/19 02/06/19 09:00 potassium chloride 10 meq PO DAILY 12/26/18 02/06/19 02/06/19 09:00 triamterene-hydrochlorothiazid 1 tab PO DAILY 12/26/18 02/06/19 02/06/19 09:00 clopidogrel 75 mg tablet 75 mg PO DAILY #90 tab 01/23/19 02/06/19 02/06/19 09:00 lisinopril 40 mg tablet 40 mg PO DAILY #90 tab 01/23/19 02/06/19 02/06/19 09:00 omeprazole 20 mg tablet,delayed 20 mg PO DAILY #90 tab 01/23/19 02/06/19 02/06/19 09:00 release levothyroxine 25 mcg PO DAILY 02/06/19 02/06/19 02/06/19 09:00 Active Medications Generic Name Dose Route Start Last Admin Trade Name Freq PRN Reason Stop Dose Admin Aspirin 81 mg 02/12/19 17:15 02/18/19 08:59 Ecotrin Ectab PO 03/14/19 17:14 Not Given [facility] [place] Atorvastatin Calcium 20 mg 02/07/19 09:00 07/01/19 08:26 Lipitor PO 03/09/19 08:59 20 mg DAILY ROD Administration Calcium Carbonate 1,250 mg 02/06/19 21:00 02/17/19 20:43 Os-Jamison 500 PO 03/08/19 20:59 1,250 mg BID ROD Administration Ferrous Sulfate 325 mg 02/15/19 09:30 02/17/19 17:09 Feosol PO 03/17/19 09:29 325 mg BIDM ROD Administration Fish Oil 1 gm 02/07/19 09:00 02/17/19 08:35 [place]-3 (Purified Fish Oil) PO 03/09/19 08:59 1 gm DAILY ROD Administration Fluoxetine HCl 10 mg 02/07/19 09:00 02/17/19 08:36 Prozac PO 03/09/19 08:59 10 mg QAM ROD Administration Fluoxetine HCl 20 mg 02/06/19 21:00 02/17/19 20:42 Prozac PO 03/08/19 20:59 20 mg QPM ROD Administration Fluticasone/Vilanterol 1 puffs 02/07/19 11:15 02/18/19 09:00 Breo Ellipta INH 03/09/19 11:14 1 puffs DAILY ROD Administration Piperacillin Sod/Tazobactam 115 mls @ 28.75 mls/hr 02/10/19 20:00 02/18/19 05:09 Sod 3.375 gm/ Dextrose IV 02/20/19 19:59 28.8 mls/hr Q8H ROD Administration Protocol Daptomycin 300 mg/ Syringe 6 mls @ 3 mls/min 02/12/19 19:00 02/17/19 20:42 IV 02/22/19 18:59 3 mls/min DAILY@1900 ROD Administration Protocol Ioversol 93 ml 02/16/19 15:14 02/16/19 15:15 Optiray 320 100ml IV 02/20/19 15:13 93 ml ONCE PRN Administration Interaction Checking Lactobacillus Acidophilus 4 tab 02/13/19 08:00 02/18/19 08:58 Floranex PO 03/15/19 07:59 Not Given TIDM ROD Levothyroxine Sodium 25 mcg 02/07/19 06:30 02/18/19 06:07 Synthroid PO 03/09/19 06:29 25 mcg DAILYBB ROD Administration Lisinopril 20 mg 02/08/19 09:00 02/08/19 08:20 Zestril PO 03/10/19 08:59 20 mg DAILY ROD Administration Magnesium Oxide 400 mg 02/15/19 14:25 02/17/19 20:43 Mag-Ox PO 03/17/19 14:24 400 mg BID ROD Administration Metoprolol Succinate 100 mg 02/07/19 09:00 02/18/19 08:58 Toprol Xl PO 03/09/19 08:59 100 mg DAILY ROD Administration Multivitamins 1 tab 02/07/19 09:00 02/17/19 08:32 Multivitamin Tab PO 03/09/19 08:59 1 tab DAILY ROD Administration Nystatin 5 ml 02/12/19 21:00 02/17/19 20:42 Mycostatin PO 02/22/19 20:59 5 ml QID ROD Administration Pantoprazole Sodium 40 mg 02/07/19 09:00 02/17/19 08:32 Protonix PO 03/09/19 08:59 40 mg DAILY ROD Administration Potassium Chloride 10 meq 02/14/19 10:00 02/17/19 20:44 Klor-Con M10 PO 03/16/19 09:59 10 meq BID ROD Administration Vitamin D 2,000 units 02/07/19 09:00 02/17/19 08:32 Vitamin D3 PO 03/09/19 08:59 2,000 units DAILY ROD Administration Past Medical History Medical History Abdomen enlarged Vertigo (Acute) Transient ischemic attack (Acute) Obstructive sleep apnea, adult (Acute) Hypothyroidism (Acute) Hyperlipidemia (Acute) Depression (Chronic) Chronic cerebral ischemia (Acute) Chronic asthmatic bronchitis (Acute) CAD (coronary artery disease) (Acute) Asthma HTN (hypertension) Exercise / Class Metabolic Activity III < 4 Walking/Shop/Light housework Past Family History Family History Mother , age 86 of an VA. She also had COPD. Myocardial infarction COPD (chronic obstructive pulmonary disease) Father , age 47 of an VA. Myocardial infarction Other Family history non-contributory Past Surgical History Surgical History S/P cholecystectomy S/P hernia repair S/P hysterectomy Past Anesthesia History No Hx of Anesthesia Complications and No Family Hx of Anesthesia Complications History of PONV No Hx of PONV and No Hx of Motion Sickness Social History Smoking Status: Never smoker Do You Dip or Chew Tobacco: No Hx Alcohol Use: No Hx Substance Use: No Physical Exam Vital Signs Last Vital Signs Temp 36.5 C 02/18/19 07:47 Pulse 65 02/18/19 07:47 Resp 20 02/18/19 07:47 BP 136/63 02/18/19 07:47 Pulse Ox 95 02/18/19 07:47 Testing Laboratory Results 02/18/19 06:35 02/18/19 06:35 Urine Color Yellow 02/06/19 19:50 Urine Appearance Cloudy (Clear) A 02/06/19 19:50 Urine pH 5.0 (4.5-7.5) 02/06/19 19:50 Ur Specific [place] 1.018 (1.000-1.030) 02/06/19 19:50 Urine Protein Negative (Negative) 02/06/19 19:50 Urine Glucose (UA) Negative (Negative) 02/06/19 19:50 Urine Ketones Negative (Negative) 02/06/19 19:50 Urine Nitrite Positive (Negative) A 02/06/19 19:50 Ur Leukocyte Esterase 2+ (Negative) H 02/06/19 19:50 Urine WBC (Auto) >30 /hpf (0-5) H 02/06/19 19:50 Urine RBC (Auto) 0-4 /hpf (0-4) 02/06/19 19:50 U Hyaline Cast (Auto) 1-5 /lpf (0-5) 02/06/19 19:50 U Epithel Cells (Auto) >30 /lpf (0-5) H 02/06/19 19:50 Urine Bacteria (Auto) 3+ (Negative) H 02/06/19 19:50 Blood Type O Positive 02/16/19 10:36 Antibody Screen NEGATIVE 02/16/19 10:36 02/06/19 15:05 Aerobic Blood Culture - Final Blood No growth in Aerobic bottle after 5 days. Anaerobic Blood Culture - Final No growth in Anaerobic bottle after 5 days. 02/06/19 15:05 Aerobic Blood Culture - Final Blood No growth in Aerobic bottle after 5 days. Anaerobic Blood Culture - Final No growth in Anaerobic bottle after 5 days. 02/06/19 19:50 Urine Culture - Final Urine,Clean Catch More than three types of organisms present, all high counts mixed probable skin tierney - No further identifications or sensitivities to follow. Electrocardiogram Date: 02/15/1915-Feb-2019 00:11:31 [facility]-3 SC ROUTINE RETRIEVAL Atrial fibrillation with rapid ventricular response Nonspecific ST and T wave abnormality Abnormal ECG When compared with ECG of 22-DEC-2017 22:19, Atrial fibrillation has replaced Sinus rhythm Vent. rate has increased BY 49 BPM Nonspecific T wave abnormality now evident in Inferior leads Nonspecific T wave abnormality, worse in Anterolateral leads Confirmed by Juan Hewitt ([id number]) on 02/15/2019 9:48:30 PM Patient has since returned to sinus rhythm Echocardiogram Date: 02/12/19 EF: 50-55% Mild LVH. Abnormal septal motion consistent with conduction abnormality. Mild AR. Other Testing CT scan abdomen 02/16/2019: CT OF THE ABDOMEN AND PELVIS WITH CONTRAST CLINICAL HISTORY: infected seroma(s), interval change; ?fistula COMPARISON STUDY: CT of the abdomen and pelvis February 10, 2019. TECHNIQUE: Following IV administration of 93 mL of Optiray-320, axial images of the abdomen and pelvis were obtained from the lung bases to the proximal femurs. Images were reviewed in the axial, sagittal, and coronal planes. IV contrast was administered without complication. Automated exposure control was utilized for the study. A dose lowering technique was utilized adhering to the principles of ALARA. Oral contrast was administered. CT DOSE: 1094.32 mGy.cm FINDINGS: Imaged portions the lower chest demonstrate a trace left pleural effusion with left basilar atelectasis. There is moderate cardiomegaly. No pneumatosis is present. The liver, spleen, adrenal glands and pancreas are unremarkable. Mild biliary ductal dilatation is unchanged and likely related to previous cholecystectomy. A 2.2 cm calculus within the upper pole of the right kidney with scarring is noted. Left renal lesions favor cysts. There are small bilateral renal calculi. There are no ureteral calculi. There is no hydronephrosis or hydroureter. No evidence for a bowel obstruction. Colonic diverticulosis is noted without evidence for acute diverticulitis. A 25 cm x 7.5 cm complex collection within the subcutaneous tissues of the anterior abdominal wall has slightly increased in size since CT of February 10, 2019. This contains several locules of gas and minimal layering hyperdense material within the in ferior aspect of this collection. There is an associated gas and fluid containing communication between this collection that extends to the peritoneal cavity. This is adjacent to the transverse colon. The appearance is unchanged. No suspicious osseous lesions are noted. IMPRESSION: 1. Slight increase in size of a large fluid collection within the subcutaneous tissues of the anterior abdominal wall since CT of February 10, 2019. This contains several locules of gas with minimal layering hyperdense material and adjacent infiltration. This suggests a seroma, possibly infected. 2. Underlying gas and fluid containing tract that extends to the abdominal cavity and abuts the transverse colon. Underlying fistula cannot be excluded. No change in appearance. : Anemia Qualifiers: Anemia type: unspecified type Qualified Code(s): D64.9 - Anemia, unspecified
[2019-02-18] MEDS: LACTOBACILLUS ACIDOPHILUS (FLORANEX) TAB PO SCH ×3 (08:58→16:44)
[2019-02-18] MEDS: METOPROLOL SUCC 50MG EXT REL TAB PO SCH (08:58)
[2019-02-18] MEDS: ASPIRIN 81 MG ECTAB PO SCH (08:59)
[2019-02-18] MEDS: FLUTICASONE/VILANTEROL INHALER INH SCH (09:00)
--- NOTE | 2019-02-18 09:12 | Progress Note ---
Date of Service February 18, 2019 Assessment & Plan (1) Abscess of abdominal wall: saw pt early this am- abd wall stable- no drainage pt up to chair and spontaneously drained dark cloudy fluid which is malodorous - infected hematoma Discussed w/ daughter (Gaby ), Dr Cardoso, and pt need for urgent operative incision, drainage and packing with plan for wound vac and wound clinic follow ICU postop Subjective see a/p Results & Data Vital Signs (Past 12 Hours) Vital Signs Temp Pulse Pulse Pulse Resp BP BP 02/18/19 07:47 36.5 C 65 20 136/63 02/18/19 07:12 66 02/18/19 04:00 36.3 C L 65 18 126/63 02/18/19 02:13 16 02/18/19 00:00 36.7 C 68 20 145/72 H 02/17/19 23:37 66 02/17/19 21:55 14 Pulse Ox 02/18/19 07:47 95 02/18/19 07:12 02/18/19 04:00 94 02/18/19 02:13 93 02/18/19 00:00 95 02/17/19 23:37 02/17/19 21:55 96
--- NOTE | 2019-02-18 09:16 | Hospitalist Progress Note ---
Date of Service February 18, 2019 Assessment & Plan (1) Abdominal wall fluid collections: Fluid collection initially felt to be a hematoma with no concern for abscess. Drainage was not pursued at time of admission. Fistula also felt to be present. Shortly after, however, there was growing concern for an infected seroma/hematoma and thus IV antibiotics were started. She has been on IV antibiotics this entire admission except for <[address] scan on 02/10/19 showed modest improvement in size of collections. Then, CT scan on 02/16/19 actually showed mild worsening/enlargement. Daptomycin added on 02/12/19 to cover possibility of MRSA. Remains on zosyn in addition to daptomycin. She may have component of skin involvement of the abdominal wall as well. day #12 of IV antibiotics today. Preparations were being made to have radiology perform needle drainage on Tuesday, 02/19, since patient's progress had been limited much of this week. Then, this AM, the fluid collection formed a sinus tract to the skin exuding COPIOUS foul-smelling, purulent fluid and blood. Dr Pablo and I spoke and also met at bedside with pt & her daughter. Dr Pablo to take patient to OR this am for clean-out of this collection. NPO now. Cont IV antibiotics. Culture of fluid sent. Post-op Dr Pablo recommending transfer to ICU for 24 hours. I spoke with Dr Ortiz, husbandry technician, regarding the events of her stay & the plan of care. (2) A-fib: PAF x 24 hours this admission - resolved. Back in NSR for last 3 days. Recent echo with preserved EF and normal valvular function. She had no symptoms when she was in a.fib. Suspect that the stress of illness caused catecholamine surge leading to PAF. The PAF resolved 3 days ago. She had poor rate control despite oral BB and 2 doses of IV digoxin when she had it. CHADS-VASC score is at least a 6. Anticoagulation should be considered - especially in light of her recent TIA. HOWEVER, anticoagulation was NOT started due to concerns she would need a drainage procedure of her abdominal fluid collection. 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 (3) Transient ischemic attack: 02/11/19. Slurred speech with questionable facial droop. MRI neg for acute stroke. CTA head/neck w/o stenosis or other findings. Echo w/o source of thrombus. Seen by Dr Hartmann - neurology - Advised to continue asa 81mg daily while hospitalized then resume plavix for secondary prevention at d/c. Reconsulted PT, OT, and speech therapy. In light of PAF and high CHADs-VASC score systemic anticoagulation would ultimately be recommended. See above in "a.fib." Poor candidate for anticoagulation however. NO TIA events since 02/11/19. (4) Anemia: Probably chronic as well as acute. Acute component secondary to acute blood loss from intra-abdominal hematomas (proven today when the infected hematoma spontaneously drained). s/p 2 units PRBCs earlier this admission. s/p 1 unit PRBCs on 02/17/19. B12/folate normal. Iron studies c/w ACD. Trans sat < 20 % --- cont ferrous sulfate 325mg BID. Hb 9.3. (5) ARF (acute renal failure): resolved peak Cr 1.49 Cr last few days 0.9-1 repeat BMP am for stability (6) Metabolic encephalopathy: 2nd to infectious process in abdomen. resolved. has not recurred. (7) Hyperlipidemia: hold home atorvastatin due to IV daptomycin use (8) Depression: cont fluoxetine could consider increase to 30mg daily (9) Asthma: no exacerbation (10) HTN (hypertension): Discontinued amlodipine, lisinopril and HCTZ due to low-normal BPs Continue beta david due to recent a.fib BP actually better s/p blood yesterday (11) GERD (gastroesophageal reflux disease): continue PPI (12) Candidiasis of mouth and esophagus: nystatin 5cc qid x 7 days the stop; day 7 today resolved (13) Hypothyroidism: most recent TSH wnl cont synthroid (14) Obstructive sleep apnea, adult: continue HS CPAP (15) Chronic kidney disease, stage 3a: stable Cr once again today baseline CrCl <60 (16) DVT prophylaxis: SCDs chemical means deferred due to intra-abdominal hematoma(s) daughter updated at bedside by myself and Dr Pablo to OR this am with Dr Pablo Subjective Called urgently by nursing staff this am that patient's abdomen started draining copious amounts of purulent, foul-smelling fluid. Much of this went on the floor. I gave verbal order for wound culture and to place ostomy bag on top of the abdominal wall wound. I informed Dr Pablo from surgery about this event. Upon arrival the room had a severe foul odor. Ostomy bag was in place on center of abdomen. Copious amounts of bloody fluid were in the bag. I could push on the abdomen and this would express more fluid. Much of the fluid was purulent in color. The patient denied ANY abd pain. She did NOT eat breakfast this am. No events through the night. Tolerated PRBCs yesterday. NSR on monitor overnight once again. Review of Systems Constitutional: + fatigue; no fever and no chills Respiratory: no dyspnea Cardiovascular: no chest pain Gastrointestinal: no abdominal pain, no nausea and no vomiting Physical Exam Constitutional: no acute distress and no altered mental status sitting in chair awake/alert ENMT: external ear and nose normal, oropharynx normal Mouth: + dry oral mucous membranes; no oral mucosal abnormality (thrush plaques absent) Respiratory: normal respiratory effort, lungs clear to auscultation Auscultation: no crackles and no wheezes Cardiovascular: Rate/Rhythm: regular rate and regular rhythm Heart Sounds: normal S1 and normal S2; no murmur Vessels: posterior tibial pulses present and dorsalis pedis pulses present; no JVD Extremities: no edema Gastrointestinal (Abdomen): normal bowel sounds, soft, nontender, no hepatosplenomegaly Inspection/Auscultation: + abdomen distended (markedly better s/p spontaneous drainage of her abdominal fluid collection) numerous surgical scars; ostomy bag in place center of abdomen; bloody fluid in bag with purulent material also present; there is a small blood-filled appearing area of skin in the LUQ that looks like it could spontaneously drain Psychiatric: A+Ox3, euthymic affect Results & Data Vital Signs (Past 12 Hours) Vital Signs Temp Pulse Pulse Pulse Resp BP BP 02/18/19 07:47 36.5 C 65 20 136/63 02/18/19 07:12 66 02/18/19 04:00 36.3 C L 65 18 126/63 02/18/19 02:13 16 02/18/19 00:00 36.7 C 68 20 145/72 H 02/17/19 23:37 66 02/17/19 21:55 14 Pulse Ox 02/18/19 07:47 95 02/18/19 07:12 02/18/19 04:00 94 02/18/19 02:13 93 02/18/19 00:00 95 02/17/19 23:37 02/17/19 21:55 96 Laboratory Results Laboratory Results - last 24 hr 02/08/19 02/16/19 02/18/19 05:22 10:36 06:35 WBC 13.27 H RBC 3.26 L Hgb 9.3 L Hct 27.8 L MCV 85.3 MCH 28.5 MCHC 33.5 RDW Std Deviation 51.9 H RDW Coeff of Elliot 16.6 H Plt Count 438 H MPV 7.9 Sodium Potassium Chloride Carbon Dioxide Anion Gap BUN Creatinine Est Cr Clr Drug Dosing Est GFR ( Amer) Est GFR (Non-Af Amer) BUN/Creatinine Ratio Glucose Calcium Blood Type O Positive Antibody Screen NEGATIVE Crossmatch See Detail See Detail 02/18/19 06:35 WBC RBC Hgb Hct MCV MCH MCHC RDW Std Deviation RDW Coeff of Elliot Plt Count MPV Sodium 137 Potassium 4.4 Chloride 108 H Carbon Dioxide 22 Anion Gap 7.0 BUN 22 H Creatinine 0.90 Est Cr Clr Drug Dosing 42.7 Est GFR ( Amer) 66.6 Est GFR (Non-Af Amer) 57.5 BUN/Creatinine Ratio 24.8 H Glucose 95 Calcium 9.1 Blood Type Antibody Screen Crossmatch PG Care Time/CCT Total # of Minutes Spent Total Time Spent with Patient: Total time spent is greater than 50% in coordination of care (as documented) at patient's floor/unit and/or counseling patient: (1) A-fib Atrial fibrillation type: unspecified Qualified Code(s): I48.91 - Unspecified atrial fibrillation (2) Anemia Anemia type: unspecified type Qualified Code(s): D64.9 - Anemia, unspecified (3) ARF (acute renal failure) Acute renal failure type: unspecified Qualified Code(s): N17.9 - Acute kidney failure, unspecified (4) Hyperlipidemia Hyperlipidemia type: mixed hyperlipidemia Qualified Code(s): E78.2 - Mixed hyperlipidemia (5) Depression Depression Type: other depression Qualified Code(s): F32.89 - Other specified depressive episodes (6) Asthma Asthma severity: unspecified severity Asthma persistence: unspecified Asthma complication type: uncomplicated Qualified Code(s): J45.909 - Unspecified asthma, uncomplicated (7) HTN (hypertension) Hypertension type: essential hypertension Qualified Code(s): I10 - Essential (primary) hypertension (8) GERD (gastroesophageal reflux disease) Esophagitis presence: esophagitis presence not specified Qualified Code(s): K21.9 - Gastro-esophageal reflux disease without esophagitis (9) Hypothyroidism Hypothyroidism type: acquired Qualified Code(s): E03.9 - Hypothyroidism, unspecified
[2019-02-18] MEDS ORDERED: LIDOCAINE HCL 2% 2 ML VIAL/AMP(20MG/ML) INFIL ONE (09:32)
[2019-02-18] MEDS ORDERED: ONDANSETRON INJ 2 MG/ML 2 ML VIAL ONE (09:32)
[2019-02-18] MEDS ORDERED: PROPOFOL IV EMULSION 10 MG/ML 20 ML VIAL IV ONE (09:32)
[2019-02-18] MEDS ORDERED: SUCCINYLCHOLINE CHLORIDE 20 MG/ML 10 ML VIAL ONE (09:32)
[2019-02-18] MEDS ORDERED: fentaNYL citrate 100 MCG/2 ML VIAL ONE (09:32)
[2019-02-18] MEDS ORDERED: ICU PROTOCOL FOR HYPERGLYCEMIA PRN (10:50)
--- NOTE | 2019-02-18 10:50 | Operative Report ---
Post Operative Report Pre & Post Diagnosis Operation Date: 02/18/19 09:45 Pre-Op Diagnosis: Abscess of abdominal wall Post-Op Diagnosis: Abscess of abdominal wall Procedure Operation Date: 02/18/19 09:45 Actual Procedures p Incision and Drainage abdominal wall abscess(Bilateral) - Armando Pablo MD, FACS and debridement Surgeon Armando Pablo MD, FACS Bead Inspector nurses Estimated Blood Loss 50 Findings Consistent with Post-Op Diagnosis Specimens culture Description of Procedure see dictation I attest to the content of the Intraoperative Record and any orders documented therein. Any exceptions are noted below.
[2019-02-18] MEDS ORDERED: HYDROmorphone INJ 0.5 MG/0.5 ML SYR IV PRN ×2 (11:01→11:39)
[2019-02-18] MEDS ORDERED: TRAMADOL HCL 50 MG TABLET PO PRN ×2 (11:01→14:41)
--- NOTE | 2019-02-18 11:07 | Critical Care Consultation ---
Date of Consultation February 18, 2019 Assessment & Plan (1) Abscess of abdominal wall: Neuro- awake alert. was question this admit about TIA but MRI brain ok CV-HD stable. afib now in sinus. CAD on aspirin, clopidogrel, atorvastatin, metoprolol, lisinopril Pulmonary- saat well on facemask. titrate off for sat >92%. asthma albuterol as needed. MADELINE CPAP at night ID- abdominal wall abscess s/p drainage. await cultures. continue daptomycin and piperacillin-tazobactam Renal-acute renal failure resolved cr ok GI- diet as tolerated Heme- leukocytosis, anemia Endocrine- blood sugars controlled. levothyroxine for hypothyroidsim Dispo- monitor in ICU post op History of Present Illness Attending Physician: Trevor Cardoso History of Present Illness 88 y/o female with a history of aib, CKD, CAD, HTN, asthma, hyperlipidemia, MADELINE, hypothyroidism who presented on 02/06 with abdominal pain which started 4 days prior to arrival. She was found to have a fluid collection in abdominal wall. it was unsure if this was hematoma as she had recent fall or if there was infectious component as well. She was managed conservatively with abx but then today fluid formed tract to skin and had copius drainge and was taken to the OR for I&D and debridement. she was brought to the ICU post op. Allergies Allergy/AdvReac Type Severity Reaction Status Date / Time oxycodone Allergy Mild RASH Verified 02/06/19 11:01 alendronate sodium Allergy Unknown [facility] LIST Verified 02/06/19 11:01 Bactrim Allergy Unknown [facility] LIST Verified 02/07/18 04:16 cefuroxime Allergy Unknown UNKNOWN ON Verified 02/06/19 11:01 LIST Cipro Allergy Unknown Unknown Verified 02/07/18 21:42 ciprofloxacin Allergy Unknown UNKNOWN ON Verified 02/06/19 11:01 LIST codeine Allergy Unknown UNKNOWN ON Verified 02/06/19 11:01 LIST gabapentin Allergy Unknown UNKNOWN ON Verified 02/06/19 11:01 LIST meperidine Allergy Unknown UNKNOWN ON Verified 02/06/19 11:01 LIST propoxyphene Allergy Unknown UNKNOWN ON Verified 02/06/19 11:01 LIST Sulfa (Sulfonamide Allergy Unknown UNKNOWN ON Verified 02/06/19 11:01 Antibiotics) LIST sulfamethoxazole Allergy Unknown [facility] Verified 02/06/19 11:01 trimethoprim Allergy Unknown [facility] LIST Verified 02/06/19 11:01 amphetamine AdvReac Severe UNKNOWN ON Verified 02/06/19 11:01 LIST dextroamphetamine AdvReac Severe UNKNOWN ON Verified 02/06/19 11:01 LIST hydrochlorothiazide AdvReac Intermediate GI DISTRESS Verified 02/06/19 11:01 methyldopa AdvReac Intermediate GI DISTRESS Verified 02/06/19 11:01 Home Medications Home Medications Medication Instructions Recorded Confirmed Type Lactobacillus acidophilus 100 mg PO DAILY 12/26/18 02/06/19 History [Acidophilus] albuterol sulfate [Ventolin HFA] 1 - 2 puff INHALATION Q4 PRN 12/26/18 02/06/19 History amlodipine 10 mg PO DAILY 12/26/18 02/06/19 History atorvastatin 20 mg PO DAILY 12/26/18 02/06/19 History calcium carbonate 300 mg PO BID 12/26/18 02/06/19 History cholecalciferol (vitamin D3) 2,000 unit PO DAILY 12/26/18 02/06/19 History [Vitamin D3] fluoxetine 10 mg PO QAM 12/26/18 02/06/19 History fluoxetine 20 mg PO QPM 12/26/18 02/06/19 History fluticasone furoate-vilanterol 1 inh INHALATION DAILY 12/26/18 02/06/19 History [Breo Ellipta] metoprolol succinate 100 mg PO DAILY 12/26/18 02/06/19 History multivitamin 1 tab PO DAILY 12/26/18 02/06/19 History omega 9-enk-luv-fish oil [Fish Oil] 1 cap PO DAILY 12/26/18 02/06/19 History potassium chloride 10 meq PO DAILY 12/26/18 02/06/19 History triamterene-hydrochlorothiazid 1 tab PO DAILY 12/26/18 02/06/19 History clopidogrel 75 mg tablet 75 mg PO DAILY #90 tab 01/23/19 02/06/19 Rx lisinopril 40 mg tablet 40 mg PO DAILY #90 tab 01/23/19 02/06/19 Rx omeprazole 20 mg tablet,delayed 20 mg PO DAILY #90 tab 01/23/19 02/06/19 Rx release levothyroxine 25 mcg PO DAILY 02/06/19 02/06/19 History Patient History Medical History Abdomen enlarged Vertigo (Acute) Transient ischemic attack (Acute) Obstructive sleep apnea, adult (Acute) Hypothyroidism (Acute) Hyperlipidemia (Acute) Depression (Chronic) Chronic cerebral ischemia (Acute) Chronic asthmatic bronchitis (Acute) CAD (coronary artery disease) (Acute) Asthma HTN (hypertension) Surgical History S/P cholecystectomy S/P hernia repair S/P hysterectomy Family History Mother , age 86 of an ID. She also had COPD. Myocardial infarction COPD (chronic obstructive pulmonary disease) Father , age 47 of an ID. 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 Feels Safe at Home: Yes Safety Concerns: Feels Safe At This Time Smoking Status: Never smoker Do You Dip or Chew Tobacco: No Hx Alcohol Use: No Hx Substance Use: No Review of Systems Review of Systems: Constitutional: no fevers no chills no weight loss Eyes: no blurry or double vision EENT: no sore throat, no congestion Respiratory: no cough no shortness of breath Cardiovascular: no chest pain no palpitations GI: + abdominal pain(none current), no nausea, no vomiting, no diarrhea, no constipation Gu: no dysuria, no frequency MSK: no joint pain, no muscle aches Skin: no rash Neuro: no headache, no dizziness, no focal weakness Endocrine: no heat or cold intolerance heme: no easy bruising, no lymphadenopathy Psych: no depression, no anxiety she denied all complaints on my evaluation unsure reliability of history just post anethesia Physical Exam Physical Exam: Constitutional: Comfortable NAD HEENT: normocephalic atraumatic. MMM. no cervical lymphadenopathy CV: RRR nl s1,s2 no murmurs rubs or gallops Lungs: clear to auscultation bilaterally. no accessory muscle use Abd: soft nontender nondistended. dressing in place CDI normal bowel sounds Ext: no edema. no cyanosis, no clubbing Skin: warm dry Neuro: alert and alert slightly lethargic but answering appropirately . moving all extremities Psych: normal mood and affect Results & Data Vital Signs (Past 12 Hours) Vital Signs Temp Pulse Pulse Pulse Resp BP BP 02/18/19 07:47 36.5 C 65 20 136/63 02/18/19 07:12 66 02/18/19 04:00 36.3 C L 65 18 126/63 02/18/19 02:13 16 02/18/19 00:00 36.7 C 68 20 145/72 H 02/17/19 23:37 66 Pulse Ox 02/18/19 07:47 95 02/18/19 07:12 02/18/19 04:00 94 02/18/19 02:13 93 02/18/19 00:00 95 02/17/19 23:37 Laboratory Results Laboratory Results - last 24 hr 02/08/19 02/16/19 02/18/19 05:22 10:36 06:35 WBC 13.27 H RBC 3.26 L Hgb 9.3 L Hct 27.8 L MCV 85.3 MCH 28.5 MCHC 33.5 RDW Std Deviation 51.9 H RDW Coeff of Elliot 16.6 H Plt Count 438 H MPV 7.9 Sodium Potassium Chloride Carbon Dioxide Anion Gap BUN Creatinine Est Cr Clr Drug Dosing Est GFR ( Amer) Est GFR (Non-Af Amer) BUN/Creatinine Ratio Glucose Calcium Blood Type O Positive Antibody Screen NEGATIVE Crossmatch See Detail See Detail 02/18/19 06:35 WBC RBC Hgb Hct MCV MCH MCHC RDW Std Deviation RDW Coeff of Elliot Plt Count MPV Sodium 137 Potassium 4.4 Chloride 108 H Carbon Dioxide 22 Anion Gap 7.0 BUN 22 H Creatinine 0.90 Est Cr Clr Drug Dosing 42.7 Est GFR ( Amer) 66.6 Est GFR (Non-Af Amer) 57.5 BUN/Creatinine Ratio 24.8 H Glucose 95 Calcium 9.1 Blood Type Antibody Screen Crossmatch Diagnostic Findings CT OF THE ABDOMEN AND PELVIS WITH CONTRAST CLINICAL HISTORY: infected seroma(s), interval change; ?fistula COMPARISON STUDY: CT of the abdomen and pelvis February 10, 2019. TECHNIQUE: Following IV administration of 93 mL of Optiray-320, axial images of the abdomen and pelvis were obtained from the lung bases to the proximal femurs. Images were reviewed in the axial, sagittal, and coronal planes. IV contrast was administered without complication. Automated exposure control was utilized for the study. A dose lowering technique was utilized adhering to the principles of ALARA. Oral contrast was administered. CT DOSE: 1094.32 mGy.cm FINDINGS: Imaged portions the lower chest demonstrate a trace left pleural effusion with left basilar atelectasis. There is moderate cardiomegaly. No pneumatosis is present. The liver, spleen, adrenal glands and pancreas are unremarkable. Mild biliary ductal dilatation is unchanged and likely related to previous cholecystectomy. A 2.2 cm calculus within the upper pole of the right kidney with scarring is noted. Left renal lesions favor cysts. There are small bilateral renal calculi. There are no ureteral calculi. There is no hydronephrosis or hydroureter. No evidence for a bowel obstruction. Colonic diverticulosis is noted without evidence for acute diverticulitis. A 25 cm x 7.5 cm complex collection within the subcutaneous tissues of the anterior abdominal wall has slightly increased in size since CT of February 10, 2019. This contains several locules of gas and minimal layering hyperdense material within the inferior aspect of this collection. There is an associated gas and fluid containing communication between this collection that extends to the peritoneal cavity. This is adjacent to the transverse colon. The appearance is unchanged. No suspicious osseous lesions are noted. IMPRESSION: 1. Slight increase in size of a large fluid collection within the subcutaneous tissues of the anterior abdominal wall since CT of February 10, 2019. This contains several locules of gas with minimal layering hyperdense material and adjacent infiltration. This suggests a seroma, possibly infected. 2. Underlying gas and fluid containing tract that extends to the abdominal cavity and abuts the transverse colon. Underlying fistula cannot be excluded. No change in appearance. Electronically signed by: Guilherme Martinez M.D. 02/16/2019 3:36 PM
--- NOTE | 2019-02-18 11:32 | Anesthesiology Progress Note ---
Date of Service February 18, 2019 Anesthesia Post Procedure Vital Signs Vital Signs: Temp Pulse Pulse Pulse Pulse Resp BP 02/18/19 11:29 36.4 C L 63 16 02/18/19 11:20 63 17 02/18/19 11:10 65 15 02/18/19 11:00 36.8 C 76 16 02/18/19 07:47 36.5 C 65 20 02/18/19 07:12 66 02/18/19 04:00 36.3 C L 65 18 02/18/19 02:13 16 02/18/19 00:00 36.7 C 68 20 02/17/19 23:37 66 02/17/19 21:55 14 02/17/19 19:16 36.5 C 67 18 02/17/19 16:00 63 02/17/19 14:44 36.7 C 63 18 133/69 02/17/19 11:50 36.3 C L 96 H 20 BP BP Pulse Ox 02/18/19 11:29 104/54 L 98 02/18/19 11:20 107/48 L 100 02/18/19 11:10 99/63 L 100 02/18/19 11:00 102/52 L 99 02/18/19 07:47 136/63 95 02/18/19 07:12 02/18/19 04:00 126/63 94 02/18/19 02:13 93 02/18/19 00:00 145/72 H 95 02/17/19 23:37 02/17/19 21:55 96 02/17/19 19:16 124/66 97 02/17/19 16:00 02/17/19 14:44 02/17/19 11:50 110/62 96 Pain Intensity Generalized: Pain Intensity: 0 Transfer of Care Handoff Completed per policy Notes Mental Status: alert / awake / arousable and participated in evaluation Patient Amnestic to Procedure: Yes Nausea / Vomiting: adequately controlled Pain: adequately controlled Airway Patency, RR, SpO2: stable & adequate BP & HR: stable & adequate Hydration State: stable & adequate Anesthetic Complications: no major complications apparent and Pt Satisfied with anesthetic care
[2019-02-18] MEDS ORDERED: ACETAMINOPHEN 1,000 MG/100 ML VIAL IV PRN (11:39)
[2019-02-18] MEDS ORDERED: HYDROCODONE/ACETAMOPHEN 5/325MG TAB PO PRN (11:39)
[2019-02-18] MEDS ORDERED: PROMETHAZINE HCL 12.5 MG in SODIUM CHLORIDE 0.9% 50 ML IV PRN (11:39)
[2019-02-18] MEDS ORDERED: ONDANSETRON INJ 2 MG/ML 2 ML VIAL IV PRN (11:39)
[2019-02-18] MEDS: SODIUM CHLORIDE 0.9% 1000ML 1,000 ML IV SCH (12:30)
--- NOTE | 2019-02-18 13:30 | Operative Report ---
DATE OF OPERATION: 02/18/2019 NAME OF OPERATION: Incision and drainage and debridement of abdominal wall abscess/hematoma. PREOPERATIVE DIAGNOSIS: Infected hematoma. POSTOPERATIVE DIAGNOSIS: Infected hematoma. STAFF SURGEON: Armando Pablo MD ANESTHESIA: General. DESCRIPTION OF PROCEDURE: The patient was brought in the operating room and placed on the operating table in supine position. A Marie catheter was placed. Orogastric tube and pneumatic stockings were in place. Her abdomen was prepped and draped in usual fashion. She was draining from the site in the mid left upper abdomen. The site was excised as well as a second area of necrosis in the left upper quadrant which was approximately 1.5 cm in diameter and then the midline incision opened encountering a significant amount of old bloody purulent fluid, which was cultured. There was some old clot also, but it was mostly purulent fluid, but extended laterally on both sides approximately 15 cm, for a width of approximately 30 cm and cephalad to caudad approximately 20 cm. laterally there were multiple microabscesses similar to what would be seen with MRSA infections, some of the tissue was debrided. The patient did have some bleeding as she has been on aspirin and Plavix in the past. We did irrigate the wound significantly with antibiotic solution. I then packed it and observed it for a period of time to be sure there was no significant bleeding. It did appear to be under control. Initially, we did aspirate approximately 1 liter of purulent fluid. At this point, using a 6-inch Kerlix with Betadine, we packed the entire wound. A second Kerlix roll was used and then ABD cover. A 4 x 4 was placed into the left upper quadrant site that was opened. The dressing taped and then the patient transferred to the intensive care unit in stable condition to be admitted. The fluid was cultured. I attest to the content of the Intraoperative Record and any orders documented therein. Any exceptions are noted below. MTDD
[2019-02-18] MEDS: NYSTATIN SUSP 500,000 U/5 ML UDC PO SCH ×4 (14:16→21:10)
[2019-02-18] MEDS: MULTIVITAMIN TAB PO SCH (14:17)
[2019-02-18] MEDS: CALCIUM CARBONATE 1250MG TAB PO SCH ×2 (14:17→21:10)
[2019-02-18] MEDS: FERROUS SULFATE 325 MG TAB PO SCH ×2 (14:17→16:46)
[2019-02-18] MEDS: POTASSIUM CHLORIDE 10 MEQ TABCR PO SCH ×2 (14:19→21:10)
[2019-02-18] MEDS: PANTOprazole 40 MG TAB PO SCH (14:20)
[2019-02-18] MEDS: MAGNESIUM OXIDE 400 MG TAB PO SCH ×2 (14:20→21:10)
[2019-02-18] MEDS: CHOLECALCIFEROL 1,000 UNITS TAB PO SCH (14:20)
[2019-02-18] MEDS: FLUOXETINE HCL 10 MG CAP PO SCH (14:20)
[2019-02-18 18:17] LABS: Hematocrit (blood only) 24.7 % (37-47); Mean Corpuscular Hgb Conc 32.4 g/dL (32-36); Mean Corpuscular Volume 86.4 fL (80-100); Mean Platelet Volume 7.6 fL (7.4-10.4); Platelet Count 366 K/uL (130-400); RDW Coefficient of Variation 16.8 % (11.5-14.5); RDW Standard Deviation 53.6 fL (36.4-46.3); Red Blood Count 2.86 M/uL (4.2-5.4); White Blood Count 12.68 K/uL (4.8-10.8)
[2019-02-18 18:34] LABS: Basophils # (auto) 0.05 K/uL (0-0.2); Basophils % (auto) 0.4 %; Eosinophils # (auto) 0.36 K/uL (0-0.5); Eosinophils % (auto) 2.8 %; Immature Granulocytes # (auto) 0.11 K/uL (0.00-0.02); Immature Granulocytes % (auto) 0.9 %; Lymphocytes # (auto) 0.82 K/uL (1.2-3.4); Lymphocytes % (auto) 6.5 %; Monocytes # (auto) 1.02 K/uL (0.11-0.59); Neutrophils # (auto) 10.32 K/uL (1.4-6.5); Neutrophils % (auto) 81.4 %
[2019-02-18] MEDS: OMEGA-3 (PURIFIED FISH OIL) 1 GM CAP PO SCH (19:34)
[2019-02-18] MEDS: DAPTOmycin 300 MG in SYRINGE 0 ML IV SCH (19:42)
[2019-02-18] MEDS: FLUOXETINE HCL 20 MG CAP PO SCH (21:10)
[2019-02-19] MEDS: PIPERACILLIN/TAZOBACTAM 3.375 GM in DEXTROSE 5% 100 ML IV SCH ×3 (04:43→22:01)
[2019-02-19 05:04] LABS: BUN Creatinine Ratio 24.6 (10-20); Calcium 8.4 mg/dl (8.5-10.1); Creatinine Clr Calc Pharmacy 41.7 ml/min; Est GFR (African American) 64.9; Magnesium 2.2 mg/dl (1.8-2.4); Potassium 4.7 mmol/L (3.5-5.1)
[2019-02-19 05:05] LABS: Hematocrit (blood only) 22.4 % (37-47); Hemoglobin 7.2 g/dL (12.0-16.0); Mean Corpuscular Hgb Conc 32.1 g/dL (32-36); Mean Corpuscular Volume 85.5 fL (80-100); Platelet Count 382 K/uL (130-400); RDW Coefficient of Variation 17.1 % (11.5-14.5); Red Blood Count 2.62 M/uL (4.2-5.4); White Blood Count 8.81 K/uL (4.8-10.8)
[2019-02-19] MEDS: LEVOTHYROXINE SODIUM 25 MCG TABLET PO SCH (06:18)
--- NOTE | 2019-02-19 06:18 | Progress Note ---
Date of Service February 19, 2019 Assessment & Plan (1) Abscess of abdominal wall: Infected hematoma- I did not see evidence of enteric contents very large- concern is extent of cavity , possibility of mild oozing with dressing change and pts ability to tolerate. anemia not unexpected- no active bleeding overnight discuss with wound nurses later this am and change dressing this am later on. Transfuse as needed Subjective see a/p
[2019-02-19] MEDS: FERROUS SULFATE 325 MG TAB PO SCH ×2 (07:29→16:30)
[2019-02-19] MEDS: LACTOBACILLUS ACIDOPHILUS (FLORANEX) TAB PO SCH ×3 (07:29→16:30)
[2019-02-19] MEDS: FLUTICASONE/VILANTEROL INHALER INH SCH (07:32)
[2019-02-19] MEDS: ASPIRIN 81 MG ECTAB PO SCH (07:32)
[2019-02-19] MEDS: POTASSIUM CHLORIDE 10 MEQ TABCR PO SCH ×2 (07:33→22:00)
[2019-02-19] MEDS: MULTIVITAMIN TAB PO SCH (07:33)
[2019-02-19] MEDS: PANTOprazole 40 MG TAB PO SCH (07:33)
[2019-02-19] MEDS: ATORVASTATIN 20 MG TAB PO SCH (07:33)
[2019-02-19] MEDS: MAGNESIUM OXIDE 400 MG TAB PO SCH ×2 (07:34→21:59)
[2019-02-19] MEDS: CLOPIDOGREL BISULFATE 75 MG TAB PO SCH (07:34)
[2019-02-19] MEDS: NYSTATIN SUSP 500,000 U/5 ML UDC PO SCH ×4 (07:34→21:58)
[2019-02-19] MEDS: FLUOXETINE HCL 10 MG CAP PO SCH (07:35)
[2019-02-19] MEDS: CHOLECALCIFEROL 1,000 UNITS TAB PO SCH (07:35)
[2019-02-19] MEDS: CALCIUM CARBONATE 1250MG TAB PO SCH ×2 (07:35→21:57)
[2019-02-19] MEDS: METOPROLOL SUCC 50MG EXT REL TAB PO SCH (07:35)
[2019-02-19] MEDS: LISINOPRIL 20 MG TAB PO SCH (07:36)
--- NOTE | 2019-02-19 07:47 | Hospitalist Progress Note ---
Date of Service February 19, 2019 Assessment & Plan (1) Abdominal wall fluid collections: Fluid collection initially felt to be a hematoma with no concern for abscess. Drainage was not pursued at time of admission. Fistula also felt to be present. Shortly after, however, there was growing concern for an infected seroma/hematoma and thus IV antibiotics were started. She has been on IV antibiotics this entire admission except for <[address] scan on 02/10/19 showed modest improvement in size of collections. Then, CT scan on 02/16/19 actually showed mild worsening/enlargement. Daptomycin added on 02/12/19 to cover possibility of MRSA. Remains on zosyn in addition to daptomycin. 02/18/19, the fluid collection formed a sinus tract to the skin exuding COPIOUS foul-smelling, purulent fluid and blood. Dr Pablo took patient to OR 02/18/19 for clean-out of this collection. Wound VAC is being applied on 02/19 (2) A-fib: PAF x 24 hours this admission - resolved. Back in NSR for last 3 days. Recent echo with preserved EF and normal valvular function. She had no symptoms when she was in a.fib. Suspect that the stress of illness caused PAF. She had poor rate control despite oral BB and 2 doses of IV digoxin when she had it. CHADS-VASC score is at least a 6. Anticoagulation should be considered - especially in light of her recent TIA. HOWEVER, anticoagulation was NOT started due to concerns she would need a drainage procedure of her abdominal fluid collection. 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 (3) Transient ischemic attack: 02/11/19. Slurred speech with questionable facial droop. MRI neg for acute stroke. CTA head/neck w/o stenosis or other findings. Echo w/o source of thrombus. Seen by Dr Hartmann - neurology - Advised to continue asa 81mg daily while hospitalized then resume plavix for secondary prevention at d/c. Reconsulted PT, OT, and speech therapy. In light of PAF and high CHADs-VASC score systemic anticoagulation would ultimately be recommended. See above in "a.fib." Poor candidate for anticoagulation however. NO TIA events since 02/11/19. (4) Anemia: Probably chronic as well as acute. Acute component secondary to acute blood loss from intra-abdominal hematomas ( proven today when the infected hematoma spontaneously drained). s/p 2 units PRBCs earlier this admission. s/p 1 unit PRBCs on 02/17/19. B12/folate normal. Iron studies c/w ACD. Trans sat < 20 % --- cont ferrous sulfate 325mg BID. Hb 9.3. (5) ARF (acute renal failure): resolved peak Cr 1.49 Cr last few days 0.9-1 (6) Metabolic encephalopathy: 2nd to infectious process in abdomen. resolved. (7) Hyperlipidemia: hold home atorvastatin due to IV daptomycin use (8) Depression: cont fluoxetine could consider increase (9) Asthma: no exacerbation (10) HTN (hypertension): Discontinued amlodipine, lisinopril and HCTZ due to low-normal BPs Continue beta david due to recent a.fib (11) GERD (gastroesophageal reflux disease): continue PPI (12) Candidiasis of mouth and esophagus: nystatin 5cc qid x 7 resolved (13) Hypothyroidism: most recent TSH wnl cont synthroid (14) Obstructive sleep apnea, adult: continue HS CPAP (15) Chronic kidney disease, stage 3a: stable Cr once again today baseline CrCl <60 (16) DVT prophylaxis: SCDs chemical means deferred due to intra-abdominal hematoma(s) Subjective pt is awake and alert but pale appearing, she has mild abdominal distress and wound care is placing a wound vac Review of Systems Review of Systems: ROS: she complains of fatigue No double vision blurry vision No problems with speech or swallowing No palpitations, chest pain or pressure No Wheezing or breathing issues mild abdominal pain but no nausea vomiting no stool since surgery No burning urine urine frequency or changes in color No focal joint pain or muscle pain No skin rashes or oral lesions No unusual bruising or bleeding mild low back pain but no radicular component, numbness or loss of strength No changes in memory or confusion Physical Exam Physical Exam: The patient appeared pale in mild distress Vital signs as documented. Head exam is unremarkable. normocephalic, atraumatic Neck is without jugular venous distension, thyromegaly, or lymphademopathy Lungs are clear but diminished at the bases Cardiac exam reveals Rhythm is regular. First and second heart sounds normal. Abdominal exam reveals hypoactive bowel sounds, large open wound in the mid abdomen which is being dressed by wound care with wound VAC application Extremities are nonedematous and both pedal pulses are present Neurologic exam is A&Ox3, no focal deficits, strength is equal bilateral Psychologically seems neither anxious or depressed Skin is warm Dry with exception of her abdominal wound Results & Data Vital Signs (Past 12 Hours) Vital Signs Temp Pulse BP Pulse Ox 02/19/19 06:45 59 L 96 02/19/19 06:30 62 111/52 L 96 02/19/19 06:15 59 L 96 02/19/19 06:01 60 115/43 L 96 02/19/19 06:00 62 97 02/19/19 05:45 61 97 02/19/19 05:30 60 120/51 L 97 02/19/19 05:15 60 95 02/19/19 05:00 60 115/57 L 96 02/19/19 04:45 61 96 02/19/19 04:30 59 L 122/49 L 96 02/19/19 04:15 59 L 97 02/19/19 04:00 36.5 C 60 120/50 L 96 02/19/19 03:45 59 L 95 02/19/19 03:30 58 L 101/51 L 96 02/19/19 03:15 64 94 02/19/19 03:00 61 103/47 L 97 02/19/19 02:45 60 95 02/19/19 02:30 60 109/46 L 95 02/19/19 02:15 61 97 02/19/19 02:00 61 101/49 L 94 02/19/19 01:45 59 L 96 02/19/19 01:30 61 109/49 L 95 02/19/19 01:15 61 94 02/19/19 01:00 58 L 103/46 L 95 02/19/19 00:45 60 95 02/19/19 00:30 62 108/46 L 96 02/19/19 00:15 61 96 02/19/19 00:00 36.7 C 62 99/44 L 95 02/18/19 23:45 64 95 02/18/19 23:30 62 99/52 L 96 02/18/19 23:15 65 95 02/18/19 23:00 62 104/43 L 93 02/18/19 22:45 65 92 02/18/19 22:30 63 104/47 L 94 02/18/19 22:15 63 94 02/18/19 22:00 64 114/46 L 95 02/18/19 21:45 66 94 02/18/19 21:36 66 100/68 97 02/18/19 21:30 67 98 02/18/19 21:15 62 98 02/18/19 21:01 67 103/44 L 100 02/18/19 21:00 63 98 02/18/19 20:45 61 99 02/18/19 20:30 62 110/48 L 99 02/18/19 20:15 62 99 02/18/19 20:01 63 106/44 L 99 02/18/19 20:00 36.8 C 63 99 02/18/19 19:45 65 100 PG Care Time/CCT Total # of Minutes Spent Total Time Spent with Patient: Total time spent is greater than 50% in coordination of care (as documented) at patient's floor/unit and/or counseling patient: (1) ARF (acute renal failure) Acute renal failure type: unspecified Qualified Code(s): N17.9 - Acute kidney failure, unspecified (2) Anemia Anemia type: unspecified type Qualified Code(s): D64.9 - Anemia, unspecified (3) A-fib Atrial fibrillation type: unspecified Qualified Code(s): I48.91 - Unspecified atrial fibrillation (4) Depression Depression Type: other depression Qualified Code(s): F32.89 - Other specified depressive episodes (5) Hyperlipidemia Hyperlipidemia type: mixed hyperlipidemia Qualified Code(s): E78.2 - Mixed hyperlipidemia (6) Hypothyroidism Hypothyroidism type: acquired Qualified Code(s): E03.9 - Hypothyroidism, unspecified (7) GERD (gastroesophageal reflux disease) Esophagitis presence: esophagitis presence not specified Qualified Code(s): K21.9 - Gastro-esophageal reflux disease without esophagitis (8) HTN (hypertension) Hypertension type: essential hypertension Qualified Code(s): I10 - Essential (primary) hypertension (9) Asthma Asthma complication type: uncomplicated Asthma persistence: unspecified Asthma severity: unspecified severity Qualified Code(s): J45.909 - Unspecified asthma, uncomplicated
[2019-02-19] MEDS: SODIUM CHLORIDE 0.9% 1000ML 1,000 ML IV SCH (08:32)
--- NOTE | 2019-02-19 09:06 | Critical Care Progress Note ---
Date of Service February 19, 2019 Assessment & Plan (1) Abscess of abdominal wall: Neuro- awake alert. was question this admit about TIA. MRI brain ok CV-HD stable. afib now in sinus. CAD on aspirin, clopidogrel, atorvastatin, metoprolol, lisinopril Pulmonary- sat well on RA. asthma albuterol as needed. MADELINE CPAP at night ID- abdominal wall abscess s/p drainage. await cultures. gram negative rods so far in fluid continue daptomycin and piperacillin-tazobactam Renal-acute renal failure resolved cr ok GI- diet as tolerated Heme- leukocytosis, anemia. SCD proph Endocrine- blood sugars controlled. levothyroxine for hypothyroidism Dispo- ok to transfer out of ICU Subjective no complaints. no pain. no sob Physical Exam Physical Exam: Constitutional: Comfortable NAD HEENT: normocephalic atraumatic. MMM. CV: RRR nl s1,s2 no murmurs rubs or gallops Lungs: clear to auscultation bilaterally. no accessory muscle use Abd: soft nontender nondistended. dressing in place CDI normal bowel sounds Ext: no edema. no cyanosis, no clubbing Skin: warm dry Neuro: alert and alert . moving all extremities Psych: normal mood and affect Results & Data Vital Signs (Past 12 Hours) Vital Signs Temp Pulse BP Pulse Ox 02/19/19 06:45 59 L 96 02/19/19 06:30 62 111/52 L 96 02/19/19 06:15 59 L 96 02/19/19 06:01 60 115/43 L 96 02/19/19 06:00 62 97 02/19/19 05:45 61 97 02/19/19 05:30 60 120/51 L 97 02/19/19 05:15 60 95 02/19/19 05:00 60 115/57 L 96 02/19/19 04:45 61 96 02/19/19 04:30 59 L 122/49 L 96 02/19/19 04:15 59 L 97 02/19/19 04:00 36.5 C 60 120/50 L 96 02/19/19 03:45 59 L 95 02/19/19 03:30 58 L 101/51 L 96 02/19/19 03:15 64 94 02/19/19 03:00 61 103/47 L 97 07/08/19 02:45 60 95 02/19/19 02:30 60 109/46 L 95 02/19/19 02:15 61 97 02/19/19 02:00 61 101/49 L 94 02/19/19 01:45 59 L 96 02/19/19 01:30 61 109/49 L 95 02/19/19 01:15 61 94 02/19/19 01:00 58 L 103/46 L 95 02/19/19 00:45 60 95 02/19/19 00:30 62 108/46 L 96 02/19/19 00:15 61 96 02/19/19 00:00 36.7 C 62 99/44 L 95 02/18/19 23:45 64 95 02/18/19 23:30 62 99/52 L 96 02/18/19 23:15 65 95 02/18/19 23:00 62 104/43 L 93 02/18/19 22:45 65 92 02/18/19 22:30 63 104/47 L 94 02/18/19 22:15 63 94 02/18/19 22:00 64 114/46 L 95 02/18/19 21:45 66 94 02/18/19 21:36 66 100/68 97 02/18/19 21:30 67 98 02/18/19 21:15 62 98 Laboratory Results Laboratory Results - last 24 hr 02/18/19 02/18/19 02/19/19 14:30 18:01 04:19 WBC 12.68 H 8.81 RBC 2.86 L 2.62 L Hgb 8.0 L 7.2 L Hct 24.7 L 22.4 L MCV 86.4 85.5 MCH 28.0 27.5 MCHC 32.4 32.1 RDW Std Deviation 53.6 H 54.0 H RDW Coeff of Elliot 16.8 H 17.1 H Plt Count 366 382 MPV 7.6 8.0 Immature Gran % (Auto) 0.9 Neut % (Auto) 81.4 Lymph % (Auto) 6.5 [place] % (Auto) 8.0 Eos % (Auto) 2.8 Baso % (Auto) 0.4 Immature Gran # (Auto) 0.11 H Neut # (Auto) 10.32 H Lymph # (Auto) 0.82 L [place] # (Auto) 1.02 H Eos # (Auto) 0.36 Baso # (Auto) 0.05 Sodium Potassium Chloride Carbon Dioxide Anion Gap BUN Creatinine Est Cr Clr Drug Dosing Est GFR ( Amer) Est GFR (Non-Af Amer) BUN/Creatinine Ratio Glucose Calcium Magnesium Nasal Screen MRSA (PCR) Negative 02/19/19 04:19 WBC RBC Hgb Hct MCV MCH MCHC RDW Std Deviation RDW Coeff of [place] Plt Count MPV Immature Gran % (Auto) Neut % (Auto) Lymph % (Auto) [place] % (Auto) Eos % (Auto) Baso % (Auto) Immature Gran # (Auto) Neut # (Auto) Lymph # (Auto) [place] # (Auto) Eos # (Auto) Baso # (Auto) Sodium 138 Potassium 4.7 Chloride 108 H Carbon Dioxide 23 Anion Gap 7.0 BUN 23 H Creatinine 0.92 Est Cr Clr Drug Dosing 41.7 Est GFR ( Amer) 64.9 Est GFR (Non-Af Amer) 56.0 BUN/Creatinine Ratio 24.6 H Glucose 104 H Calcium 8.4 L Magnesium 2.2 Nasal Screen MRSA (PCR)
[2019-02-19] MEDS ORDERED: SODIUM CHLORIDE 0.9% 250 ML IV PRN (13:29)
--- NOTE | 2019-02-19 14:51 | Wound Consultation ---
Date of Consultation February 19, 2019 Assessment & Plan (1) Abscess of abdominal wall: No debridement was required today. Continue antibiotics per infectious disease. Patient is appropriate for irrigating wound VAC. We will apply wound VAC with normal saline to irrigate for 10 minutes around for 2 hours. Will reevaluate in 72 hours. We will continue irrigating wound VAC as long as patient is inpatient and will then switch her to traditional wound VAC. Patient's and daughter were present for exam. I answered all of their questions satisfactorily. Thank you for allowing to participate in the care of this patient. Please not hesitate to call with any questions. History of Present Illness Attending Physician: Vladislav Arzate MD This is a 88-year-old female with a history of paroxysmal atrial fibrillation, GERD, anemia, TIA, vertigo, obstructive sleep apnea, hypothyroidism, hyperlipidemia, depression, chronic cerebral ischemia, CAD, hypertension and frequent falls whom I am being consulted for possible wound VAC placement. Patient had a large hematoma/seroma that became infected and spontaneously began to drain. Patient was taken to the OR by Dr. Pablo on 02/18/2019 for I&D and washout. Allergies Allergy/AdvReac Type Severity Reaction Status Date / Time oxycodone Allergy Mild RASH Verified 02/06/19 11:01 alendronate sodium Allergy Unknown [facility] LIST Verified 02/06/19 11:01 Bactrim Allergy Unknown [facility] LIST Verified 02/07/18 04:16 cefuroxime Allergy Unknown UNKNOWN ON Verified 02/06/19 11:01 LIST Cipro Allergy Unknown Unknown Verified 02/07/18 21:42 ciprofloxacin Allergy Unknown UNKNOWN ON Verified 02/06/19 11:01 LIST codeine Allergy Unknown UNKNOWN ON Verified 02/06/19 11:01 LIST gabapentin Allergy Unknown UNKNOWN ON Verified 02/06/19 11:01 LIST meperidine Allergy Unknown UNKNOWN ON Verified 02/06/19 11:01 LIST propoxyphene Allergy Unknown UNKNOWN ON Verified 02/06/19 11:01 LIST Sulfa (Sulfonamide Allergy Unknown UNKNOWN ON Verified 02/06/19 11:01 Antibiotics) LIST sulfamethoxazole Allergy Unknown [facility] LIST Verified 02/06/19 11:01 trimethoprim Allergy Unknown [facility] LIST Verified 02/06/19 11:01 amphetamine AdvReac Severe UNKNOWN ON Verified 02/06/19 11:01 LIST dextroamphetamine AdvReac Severe UNKNOWN ON Verified 02/06/19 11:01 LIST hydrochlorothiazide AdvReac Intermediate GI DISTRESS Verified 02/06/19 11:01 methyldopa AdvReac Intermediate GI DISTRESS Verified 02/06/19 11:01 Home Medications Home Medications Medication Instructions Recorded Confirmed Type Lactobacillus acidophilus 100 mg PO DAILY 12/26/18 02/06/19 History [Acidophilus] albuterol sulfate [Ventolin HFA] 1 - 2 puff INHALATION Q4 PRN 12/26/18 02/06/19 History amlodipine 10 mg PO DAILY 12/26/18 02/06/19 History atorvastatin 20 mg PO DAILY 12/26/18 02/06/19 History calcium carbonate 300 mg PO BID 12/26/18 02/06/19 History cholecalciferol (vitamin D3) 2,000 unit PO DAILY 12/26/18 02/06/19 History [Vitamin D3] fluoxetine 10 mg PO QAM 12/26/18 02/06/19 History fluoxetine 20 mg PO QPM 12/26/18 02/06/19 History fluticasone furoate-vilanterol 1 inh INHALATION DAILY 12/26/18 02/06/19 History [Breo Ellipta] metoprolol succinate 100 mg PO DAILY 12/26/18 02/06/19 History multivitamin 1 tab PO DAILY 12/26/18 02/06/19 History omega [id number]-fish oil [Fish Oil] 1 cap PO DAILY 12/26/18 02/06/19 History potassium chloride 10 meq PO DAILY 12/26/18 02/06/19 History triamterene-hydrochlorothiazid 1 tab PO DAILY 12/26/18 02/06/19 History clopidogrel 75 mg tablet 75 mg PO DAILY #90 tab 01/23/19 02/06/19 Rx lisinopril 40 mg tablet 40 mg PO DAILY #90 tab 01/23/19 02/06/19 Rx omeprazole 20 mg tablet,delayed 20 mg PO DAILY #90 tab 01/23/19 02/06/19 Rx release levothyroxine 25 mcg PO DAILY 02/06/19 02/06/19 History Patient History Medical History Abdomen enlarged Vertigo (Acute) Transient ischemic attack (Acute) Obstructive sleep apnea, adult (Acute) Hypothyroidism (Acute) Hyperlipidemia (Acute) Depression (Chronic) Chronic cerebral ischemia (Acute) Chronic asthmatic bronchitis (Acute) CAD (coronary artery disease) (Acute) Asthma HTN (hypertension) Surgical History S/P cholecystectomy S/P hernia repair S/P hysterectomy Family History Mother , age 86 of an DC. She also had COPD. Myocardial infarction COPD (chronic obstructive pulmonary disease) Father , age 47 of an DC. 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 Feels Safe at Home: Yes Safety Concerns: Feels Safe At This Time Smoking Status: Never smoker Do You Dip or Chew Tobacco: No Hx Alcohol Use: No Hx Substance Use: No Review of Systems Review of Systems: All systems reviewed & are unremarkable except as noted in HPI & below Physical Exam Skin: Wound #1 left upper abdomen measuring 1.8 x 2 cm. Wound #2 medial abdomen measuring 17.7 x 5.4 x 4.5 cm. There are no exposed structures. There is remnants of clot remaining. Periwound is intact without inflammation. Neurologic: awake; not confused Psychiatric: A+Ox3, euthymic affect Results & Data Vital Signs (Past 12 Hours) Vital Signs Temp Pulse Resp BP Pulse Ox 02/19/19 09:00 61 24 121/50 L 95 02/19/19 08:30 63 16 116/50 L 98 02/19/19 08:01 64 24 106/50 L 96 02/19/19 08:00 36.7 C 63 17 96 02/19/19 07:30 59 L 123/53 L 97 02/19/19 07:00 60 125/53 L 96 02/19/19 06:45 59 L 96 02/19/19 06:30 62 111/52 L 96 02/19/19 06:15 59 L 96 02/19/19 06:01 60 115/43 L 96 02/19/19 06:00 62 97 02/19/19 05:45 61 97 02/19/19 05:30 60 120/51 L 97 02/19/19 05:15 60 95 02/19/19 05:00 60 115/57 L 96 02/19/19 04:45 61 96 02/19/19 04:30 59 L 122/49 L 96 02/19/19 04:15 59 L 97 02/19/19 04:00 36.5 C 60 120/50 L 96 02/19/19 03:45 59 L 95 02/19/19 03:30 58 L 101/51 L 96 02/19/19 03:15 64 94 02/19/19 03:00 61 103/47 L 97
--- NOTE | 2019-02-19 15:06 | Infectious Disease Progress Nt ---
Date of Service February 19, 2019 Assessment & Plan (1) Abscess of abdominal wall: Patient with abdominal wall abscess, audible infected hematoma, now improved after drainage procedure. Cultures growing gram-negative bacilli, will adjust antibiotics once final results are available. Will follow. Subjective Patient seen in follow-up for infected hematoma. Recent events reviewed. Patient developed spontaneous drainage of copious amount of bloody/purulent drainage, subsequently taken to the operating room for drainage. Wound VAC placed. Operative cultures now growing gram-negative bacilli. This afternoon, patient appears quite comfortable, offers no specific complaints. No pain expressed. Afebrile, hemodynamically stable. Review of Systems Review of Systems: All systems reviewed & are unremarkable except as noted in HPI & below Physical Exam Constitutional: WD/WN, vitals as above no acute distress Eyes: PERRL, conjunctivae normal, anicteric sclerae ENMT: external ear and nose normal, oropharynx normal Neck: trachea midline, no thyromegaly normal visual inspection Respiratory: normal respiratory effort, lungs clear to auscultation normal percussion Cardiovascular: RRR, no murmur, no edema Heart Sounds: no gallop and no cardiac rub Gastrointestinal (Abdomen): Inspection/Auscultation: + abdomen distended and normal bowel sounds Percussion/Palpation: no hepatosplenomegaly and no abdominal mass Musculoskeletal: Head/Neck/Chest: normocephalic, head atraumatic and neck supple Extremities: strength 5/5 throughout Skin: no rashes, warm and dry normal turgor Wound VAC in place Neurologic: moves all extremities; no focal motor deficits Speech / Cognition: normal speech Psychiatric: A+Ox3, euthymic affect Lymphatic: no cervical or axillary lymphadenopathy no inguinal lymphadenopathy Results & Data Vital Signs (Past 12 Hours) Vital Signs Temp Pulse Resp BP Pulse Ox 02/19/19 09:00 61 24 121/50 L 95 02/19/19 08:30 63 16 116/50 L 98 02/19/19 08:01 64 24 106/50 L 96 02/19/19 08:00 36.7 C 63 17 96 02/19/19 07:30 59 L 123/53 L 97 02/19/19 07:00 60 125/53 L 96 02/19/19 06:45 59 L 96 02/19/19 06:30 62 111/52 L 96 02/19/19 06:15 59 L 96 02/19/19 06:01 60 115/43 L 96 02/19/19 06:00 62 97 02/19/19 05:45 61 97 02/19/19 05:30 60 120/51 L 97 02/19/19 05:15 60 95 02/19/19 05:00 60 115/57 L 96 02/19/19 04:45 61 96 02/19/19 04:30 59 L 122/49 L 96 02/19/19 04:15 59 L 97 02/19/19 04:00 36.5 C 60 120/50 L 96 02/19/19 03:45 59 L 95 02/19/19 03:30 58 L 101/51 L 96 02/19/19 03:15 64 94 Laboratory Results Short CBC 02/18/19 02/19/19 Range/Units 18:01 04:19 WBC 12.68 H 8.81 (4.8-10.8) K/uL Hgb 8.0 L 7.2 L (12.0-16.0) g/dL Hct 24.7 L 22.4 L (37-47) % Plt Count 366 382 (130-400) K/uL BMP 02/19/19 04:19 Sodium 138 Potassium 4.7 Chloride 108 H Carbon Dioxide 23 BUN 23 H Creatinine 0.92 Glucose 104 H Calcium 8.4 L Diagnostic Findings Microbiology 02/18/19 10:37 Abdomen Gram Stain - Final 02/18/19 10:37 Abdomen Aerobic and Anaerobic Culture - Preliminary Gram negative bacilli 02/18/19 Unknown Abdomen Gram Stain - Final 02/18/19 Unknown Abdomen Wound Culture - Preliminary Gram negative bacilli 02/06/19 15:05 Blood Aerobic Blood Culture - Final No growth in Aerobic bottle after 5 days. 02/06/19 15:05 Blood Anaerobic Blood Culture - Final No growth in Anaerobic bottle after 5 days. 02/06/19 15:05 Blood Aerobic Blood Culture - Final No growth in Aerobic bottle after 5 days. 02/06/19 15:05 Blood Anaerobic Blood Culture - Final No growth in Anaerobic bottle after 5 days. 02/06/19 19:50 Urine,Clean Catch Urine Culture - Final More than three types of organisms present, all high counts mixed probable skin tierney - No further identifications or sensitivities to follow. CT OF THE ABDOMEN AND PELVIS WITH CONTRAST CLINICAL HISTORY: infected seroma(s), interval change; ?fistula COMPARISON STUDY: CT of the abdomen and pelvis February 10, 2019. TECHNIQUE: Following IV administration of 93 mL of Optiray-320, axial images of the abdomen and pelvis were obtained from the lung bases to the proximal femurs. Images were reviewed in the axial, sagittal, and coronal planes. IV contrast was administered without complication. Automated exposure control was utilized for the study. A dose lowering technique was utilized adhering to the principles of ALARA. Oral contrast was administered. CT DOSE: 1094.32 mGy.cm FINDINGS: Imaged portions the lower chest demonstrate a trace left pleural effusion with left basilar atelectasis. There is moderate cardiomegaly. No pneumatosis is present. The liver, spleen, adrenal glands and pancreas are unrem arkable. Mild biliary ductal dilatation is unchanged and likely related to previous cholecystectomy. A 2.2 cm calculus within the upper pole of the right kidney with scarring is noted. Left renal lesions favor cysts. There are small bilateral renal calculi. There are no ureteral calculi. There is no hydronephrosis or hydroureter. No evidence for a bowel obstruction. Colonic diverticulosis is noted without evidence for acute diverticulitis. A 25 cm x 7.5 cm complex collection within the subcutaneous tissues of the anterior abdominal wall has slightly increased in size since CT of February 10, 2019. This contains several locules of gas and minimal layering hyperdense material within the inferior aspect of this collection. There is an associated gas and fluid containing communication between this collection that extends to the peritoneal cavity. This is adjacent to the transverse colon. The appearance is unchanged. No suspicious osseous lesions are noted. IMPRESSION: 1. Slight increase in size of a large fluid collection within the subcutaneous tissues of the anterior abdominal wall since CT of February 10, 2019. This contains several locules of gas with minimal layering hyperdense material and adjacent infiltration. This suggests a seroma, possibly infected. 2. Underlying gas and fluid containing tract that extends to the abdominal cavity and abuts the transverse colon. Underlying fistula cannot be excluded. No change in appearance. Electronically signed by: Guilherme Martinez M.D. 02/16/2019 3:36 PM
[2019-02-19] MEDS: DAPTOmycin 300 MG in SYRINGE 0 ML IV SCH (18:36)
[2019-02-19] MEDS: FLUOXETINE HCL 20 MG CAP PO SCH (21:58)
[2019-02-20] MEDS: PIPERACILLIN/TAZOBACTAM 3.375 GM in DEXTROSE 5% 100 ML IV SCH ×2 (04:58→12:42)
[2019-02-20] MEDS: LEVOTHYROXINE SODIUM 25 MCG TABLET PO SCH (06:18)
--- NOTE | 2019-02-20 07:07 | Hospitalist Progress Note ---
Date of Service February 20, 2019 Assessment & Plan (1) Abdominal wall fluid collections: Fluid collection initially felt to be a hematoma with no concern for abscess. Drainage was not pursued at time of admission. Fistula also felt to be present. Shortly after, however, there was growing concern for an infected seroma/hematoma and thus IV antibiotics were started. She has been on IV antibiotics this entire admission except for <[address] scan on 02/10/19 showed modest improvement in size of collections. Then, CT scan on 02/16/19 actually showed mild worsening/enlargement. Daptomycin added on 02/12/19 to cover possibility of MRSA. Remains on zosyn cultures show pansensitive e coli 02/18/19, the fluid collection formed a sinus tract to the skin exuding COPIOUS foul-smelling, purulent fluid and blood. Dr Pablo took patient to OR 02/18/19 for clean-out of this collection. Wound VAC applied on 02/19 (2) A-fib: PAF x 24 hours this admission - resolved. Back in NSR for last 3 days. Recent echo with preserved EF and normal valvular function. She had no symptoms when she was in a.fib. Suspect that the stress of illness caused PAF. She had poor rate control despite oral BB and 2 doses of IV digoxin when she had it. CHADS-VASC score is at least a 6. Anticoagulation should be considered - especially in light of her recent TIA. HOWEVER, anticoagulation was NOT started due to concerns she would need a drainage procedure of her abdominal fluid collection. 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 (3) Transient ischemic attack: 02/11/19. Slurred speech with questionable facial droop. Now resolved MRI neg for acute stroke. CTA head/neck w/o stenosis or other findings. Echo w/o source of thrombus. Seen by Dr Hartmann - neurology - Advised to continue asa 81mg daily while hospitalized then resume plavix for secondary prevention at d/c. Reconsulted PT, OT, and speech therapy. In light of PAF and high CHADs-VASC score systemic anticoagulation would ultimately be recommended. HAS BLED score suggest at least 4.1% risk of major bleeding per year Poor candidate for anticoagulation however. NO TIA events since 02/11/19. (4) Anemia: Probably chronic as well as acute. Acute component secondary to acute blood loss from intra-abdominal hematomas (proven today when the infected hematoma spontaneously drained). s/p 2 units PRBCs earlier this admission. s/p 1 unit PRBCs on 02/17/19. s/p 2 units PRBC 02/19 B12/folate normal. Iron studies c/w ACD. Trans sat < 20 % --- cont ferrous sulfate 325mg BID. (5) ARF (acute renal failure): resolved peak Cr 1.49 Cr last few days 0.9-1 (6) Metabolic encephalopathy: 2nd to infectious process in abdomen. resolved. (7) Hyperlipidemia: hold home atorvastatin due to IV daptomycin use (8) Depression: cont fluoxetine could consider increase (9) Asthma: no exacerbation (10) HTN (hypertension): Discontinued amlodipine, lisinopril and HCTZ due to low-normal BPs Continue beta david due to recent a.fib (11) GERD (gastroesophageal reflux disease): continue PPI (12) Candidiasis of mouth and esophagus: nystatin 5cc qid x 7 days resolved (13) Hypothyroidism: most recent TSH wnl cont synthroid (14) Obstructive sleep apnea, adult: continue HS CPAP (15) Chronic kidney disease, stage 3a: stable Cr once again today baseline CrCl <60 (16) DVT prophylaxis: SCDs chemical means deferred due to intra-abdominal hematoma(s) Subjective Patient looks good she is much more awake and alert she is better color since her transfusion she only has minimal abdominal pain is encouraged she has been the start moving about rational discussion with ICU team has recommended transition to medical floor from intensive care services Review of Systems Review of Systems: ROS: well nourished well developed. No double vision blurry vision No problems with speech or swallowing No palpitations, chest pain or pressure No Wheezing or breathing issues Very little abdominal pain no nausea vomiting she has had no diarrhea No burning urine does have a Marie catheter No focal joint pain or muscle pain No skin rashes or oral lesions No unusual bruising or bleeding No focused back pain or numbness or loss of strength No changes in memory or confusion Physical Exam Physical Exam: The patient appeared in no distress Vital signs as documented. Head exam is unremarkable. normocephalic, atraumatic Neck is without jugular venous distension, thyromegaly, or lymphademopathy Lungs are clear but diminished at the bases Cardiac exam reveals Rhythm is regular. Systolic ejection murmurs heard Abdominal exam reveals wound VAC is in place and central abdomen with midline vertical wound. Bowel sounds are present she is mildly tender to examination Extremities are nonedematous and both pedal pulses are present Neurologic exam is A&Ox3, no focal deficits, strength is equal bilateral Psychologically seems neither anxious or depressed Skin is warm Dry see wound care for further description of her abdominal wound Results & Data Vital Signs (Past 12 Hours) Vital Signs Temp Pulse Resp BP Pulse Ox 02/19/19 22:34 82 16 94 02/19/19 20:34 36.6 C 65 25 H 132/53 L 95 02/19/19 20:30 64 22 143/71 H 96 02/19/19 20:00 36.4 C L 67 19 130/77 96 PG Care Time/CCT Total # of Minutes Spent Total Time Spent with Patient: Total time spent is greater than 50% in coordination of care (as documented) at patient's floor/unit and/or counseling patient: (1) ARF (acute renal failure) Acute renal failure type: unspecified Qualified Code(s): N17.9 - Acute kidney failure, unspecified (2) Anemia Anemia type: unspecified type Qualified Code(s): D64.9 - Anemia, unspecified (3) A-fib Atrial fibrillation type: unspecified Qualified Code(s): I48.91 - Unspecified atrial fibrillation (4) Depression Depression Type: other depression Qualified Code(s): F32.89 - Other specified depressive episodes (5) Hyperlipidemia Hyperlipidemia type: mixed hyperlipidemia Qualified Code(s): E78.2 - Mixed hyperlipidemia (6) Hypothyroidism Hypothyroidism type: acquired Qualified Code(s): E03.9 - Hypothyroidism, unspecified (7) GERD (gastroesophageal reflux disease) Esophagitis presence: esophagitis presence not specified Qualified Code(s): K21.9 - Gastro-esophageal reflux disease without esophagitis (8) HTN (hypertension) Hypertension type: essential hypertension Qualified Code(s): I10 - Essential (primary) hypertension (9) Asthma Asthma complication type: uncomplicated Asthma persistence: unspecified Asthma severity: unspecified severity Qualified Code(s): J45.909 - Unspecified asthma, uncomplicated
[2019-02-20 07:53] LABS: Basophils # (auto) 0.09 K/uL (0-0.2); Eosinophils # (auto) 0.68 K/uL (0-0.5); Eosinophils % (auto) 7.2 %; Hematocrit (blood only) 27.8 % (37-47); Hemoglobin 9.1 g/dL (12.0-16.0); Immature Granulocytes # (auto) 0.08 K/uL (0.00-0.02); Immature Granulocytes % (auto) 0.8 %; Lymphocytes # (auto) 0.97 K/uL (1.2-3.4); Lymphocytes % (auto) 10.3 %; Mean Corpuscular Hgb Conc 32.7 g/dL (32-36); Mean Corpuscular Volume 85.5 fL (80-100); Mean Platelet Volume 7.9 fL (7.4-10.4); Monocytes # (auto) 0.73 K/uL (0.11-0.59); Monocytes % (auto) 7.7 %; Platelet Count 330 K/uL (130-400); RDW Coefficient of Variation 16.4 % (11.5-14.5); RDW Standard Deviation 51.5 fL (36.4-46.3); Red Blood Count 3.25 M/uL (4.2-5.4); White Blood Count 9.45 K/uL (4.8-10.8)
--- NOTE | 2019-02-20 07:58 | Critical Care Progress Note ---
Date of Service February 20, 2019 Assessment & Plan (1) Admitted to intensive care unit: Reason Critically Ill: Concern for an infected seroma/hematoma requiring IV antibiotics NEURO ICU CAM: NEGATIVE -Was concern during this admit about TIA ? MRI Brain ok . Neuro: continue asa 81mg daily while hospitalized then resume plavix for secondary prevention at d/c -Depression- cont fluoxetine -No other acute concerns or complaints. CARDIO -Hemodynamically Stable -Afib- PAF x 24 hours this admission resolved now NSR. CHADS-VASC score is at least a 6. Anticoagulation should be considered - especially in light of her recent TIA. However, anticoagulation was not started due to concerns she would need a drainage procedure of her abdominal fluid collection. Additionally, pt is not a good candidate for systemic anticoagulation given many prior falls. Last ECHO: preserved EF and normal valvular function. -CAD- cont aspirin, clopidogrel, metoprolol, lisinopril -HLD- held home atorvastatin due to IV daptomycin use, may resume again as dapto dc'd as below -HTN- Discontinued amlodipine, HCTZ due to low-normal BPs. Cont lisinopril. Continue beta david due to recent a.fib PULMONARY -sat well on RA -asthma albuterol as needed -MADELINE CPAP at night -no other acute concerns GI/Abd -02/18 CT Abd: Slight increase in size of a large fluid collection within the subcutaneous tissues of the anterior abdominal wall since CT of February 10 -wound vac in place -no acute concerns or complaints RENAL/ -CKD III -Stable Cr. ARF resolved. IVF dc'd ENDO -BSG per ICU protocol, controlled. -Hypothyroidism- cont levothyroxine ID -abdominal wall abscess s/p drainage. Cultures show pansensitive e coli, d/c daptomycin and cont zosyn HEME -leukocytosis, anemia (at baseline) LINES: PIV x2, Marie DVT Prophylaxis: SCDs. Chemical means deferred due to intra-abdominal hematoma Full Code DISPO: Stable for downgrade out of ICU Supervising Physician Co-Signing Physician Notes Dr. Polanco was resident physician during care of patient. I reviewed the documentation, patient was transferred out of the ICU by the primary service prior to my evaluation.. I generally agree with the findings and plan. Subjective 88 y/o F found in bed this AM in NAD. No reported acute overnight events. Pt reports overall doing well. Has no acute concerns or complaints at present. Review of Systems Review of Systems: All systems reviewed & are unremarkable except as noted in HPI & below Physical Exam Constitutional: WD/WN, vitals as above Eyes: PERRL, conjunctivae normal, anicteric sclerae ENMT: external ear and nose normal, oropharynx normal Respiratory: normal respiratory effort, lungs clear to auscultation Cardiovascular: RRR, no murmur, no edema Gastrointestinal (Abdomen): dressing in place, C/D/I Skin: no rashes, warm and dry Psychiatric: A+Ox3, euthymic affect Results & Data Vital Signs (Past 12 Hours) Vital Signs Temp Pulse Resp BP Pulse Ox 02/20/19 07:00 63 17 135/65 96 02/20/19 06:00 64 21 124/50 L 96 02/20/19 05:01 66 22 122/45 L 98 02/20/19 05:00 65 17 97 02/20/19 04:00 36.7 C 65 31 H 113/59 L 97 02/20/19 03:00 64 19 140/60 98 02/20/19 02:00 64 18 130/62 97 02/20/19 01:00 69 17 110/63 97 02/20/19 00:00 36.6 C 66 21 138/55 L 96 02/19/19 23:00 66 20 123/50 L 97 02/19/19 22:34 82 16 94 02/19/19 22:00 65 22 131/54 L 96 02/19/19 21:00 63 24 124/57 L 96 02/19/19 20:34 36.6 C 65 25 H 132/53 L 95 02/19/19 20:30 64 22 143/71 H 96 02/19/19 20:00 36.4 C L 67 19 130/77 96 Laboratory Results Laboratory Results - last 24 hr 02/19/19 02/20/19 02/20/19 13:43 07:33 07:33 WBC 9.45 RBC 3.25 L Hgb 9.1 L Hct 27.8 L MCV 85.5 MCH 28.0 MCHC 32.7 RDW Std Deviation 51.5 H RDW Coeff of Elliot 16.4 H Plt Count 330 MPV 7.9 Immature Gran % (Auto) 0.8 Neut % (Auto) 73.0 Lymph % (Auto) 10.3 [place] % (Auto) 7.7 Eos % (Auto) 7.2 Baso % (Auto) 1.0 Immature Gran # (Auto) 0.08 H Neut # (Auto) 6.90 H Lymph # (Auto) 0.97 L [place] # (Auto) 0.73 H Eos # (Auto) 0.68 H Baso # (Auto) 0.09 Sodium 140 Potassium 4.6 Chloride 109 H Carbon Dioxide 24 Anion Gap 7.0 BUN 21 H Creatinine 0.82 Est Cr Clr Drug Dosing 46.4 Est GFR ( Amer) 74.6 Est GFR (Non-Af Amer) 64.3 BUN/Creatinine Ratio 25.6 H Glucose 115 H Calcium 8.9 Blood Type O Positive Antibody Screen NEGATIVE Crossmatch See Detail Medications Administered Current Inpatient Medications Acetaminophen (Tylenol) 650 mg PO Q4H PRN PRN Reason: Pain or Fever Stop: 03/08/19 20:40 Albuterol (Ventolin Hfa) 1 puffs INH Q4 PRN PRN Reason: Shortness Of Breath Or Wheezing Stop: 03/08/19 20:40 Aspirin (Ecotrin Ectab) 81 mg PO QAM [facility] Stop: 03/14/19 17:14 Last Admin: 02/20/19 08:56 Dose: 81 mg Documented by: Calcium Carbonate (Os-Jamison 500) 1,250 mg PO BID [facility] Stop: 03/08/19 20:59 Last Admin: 02/20/19 08:56 Dose: 1,250 mg Documented by: Ferrous Sulfate (Feosol) 325 mg PO BIDM [facility] Stop: 03/17/19 09:29 Last Admin: 02/20/19 08:56 Dose: 325 mg Documented by: Fluoxetine HCl (Prozac) 10 mg PO QAM [facility] Stop: 03/09/19 08:59 Last Admin: 02/20/19 08:56 Dose: 10 mg Documented by: Fluoxetine HCl (Prozac) 20 mg PO QPM [facility] Stop: 03/08/19 20:59 Last Admin: 02/19/19 21:58 Dose: 20 mg Documented by: Fluticasone/Vilanterol (Breo Ellipta) 1 puffs INH DAILY [facility] Stop: 03/09/19 11:14 Last Admin: 02/20/19 08:57 Dose: 1 puffs Documented by: Hydromorphone HCl (Dilaudid) 0.5 mg IV Q3HWA PRN PRN Reason: Pain Stop: 03/04/19 11:38 Acetaminophen (Ofirmev) 1,000 mg in 100 mls @ 400 mls/hr IV Q8 PRN PRN Reason: Pain Stop: 03/20/19 11:38 Promethazine HCl 12.5 mg/ (Sodium Chloride) 50.5 mls @ 204 mls/hr IV Q6H PRN PRN Reason: Nausea And Vomiting Stop: 03/20/19 11:38 Piperacillin Sod/Tazobactam (Sod 3.375 gm/ Dextrose) 115 mls @ 28.75 mls/hr IV Q8H ROD; Protocol Stop: 02/20/19 19:59 Last Admin: 02/20/19 12:42 Dose: 28.8 mls/hr Documented by: Lactobacillus Acidophilus (Floranex) 4 tab PO TIDM [facility] Stop: 03/15/19 07:59 Last Admin: 02/20/19 11:35 Dose: 4 tab Documented by: Levothyroxine Sodium (Synthroid) 25 mcg PO DAILYBB [facility] Stop: 03/09/19 06:29 Last Admin: 02/20/19 06:18 Dose: 25 mcg Documented by: Lisinopril (Zestril) 20 mg PO DAILY [facility] Stop: 03/10/19 08:59 Last Admin: 02/20/19 08:56 Dose: 20 mg Documented by: Magnesium Hydroxide (Milk Of Magnesia) 30 ml PO Q12H PRN PRN Reason: Constipation Stop: 03/08/19 20:40 Magnesium Oxide (Mag-Ox) 400 mg PO BID [facility] Stop: 03/17/19 14:24 Last Admin: 02/20/19 09:00 Dose: 400 mg Documented by: Metoprolol Succinate (Toprol Xl) 100 mg PO DAILY [facility] Stop: 03/09/19 08:59 Last Admin: 02/20/19 08:55 Dose: 100 mg Documented by: Miscellaneous Information (Consult) 1 ea N/A UD PRN PRN Reason: Consult Stop: 03/12/19 14:48 Multivitamins (Multivitamin Tab) 1 tab PO DAILY [facility] Stop: 03/09/19 08:59 Last Admin: 02/20/19 08:56 Dose: 1 tab Documented by: Nystatin (Mycostatin) 5 ml PO QID [facility] Stop: 02/22/19 20:59 Last Admin: 02/20/19 12:42 Dose: 5 ml Documented by: Ondansetron HCl (Zofran) 4 mg IV Q6H PRN PRN Reason: Nausea Stop: 03/08/19 20:40 Pantoprazole Sodium (Protonix) 40 mg PO DAILY ROD Stop: 03/09/19 08:59 Last Admin: 02/20/19 08:55 Dose: 40 mg Documented by: Potassium Chloride (Klor-Con M10) 10 meq PO BID [facility] Stop: 03/16/19 09:59 Last Admin: 02/20/19 09:00 Dose: 10 meq Documented by: Tramadol HCl (Ultram) 50 - 100 mg PO Q4H PRN PRN Reason: Pain Stop: 03/20/19 14:40 Vitamin D (Vitamin D3) 2,000 units PO DAILY [facility] Stop: 03/09/19 08:59 Last Admin: 02/20/19 08:55 Dose: 2,000 units Documented by: Resident Activity Tracking Resident Involvement: Resident Care Provided Care Provided: Adult Hospital Medicine
[2019-02-20 08:23] LABS: BUN Creatinine Ratio 25.6 (10-20); Calcium 8.9 mg/dl (8.5-10.1); Creatinine Clr Calc Pharmacy 46.4 ml/min; Est GFR (African American) 74.6; Est GFR (Non-African American) 64.3; Potassium 4.6 mmol/L (3.5-5.1)
[2019-02-20] MEDS: SODIUM CHLORIDE 0.9% 1000ML 1,000 ML IV SCH (08:54)
[2019-02-20] MEDS: CLOPIDOGREL BISULFATE 75 MG TAB PO SCH (08:55)
[2019-02-20] MEDS: PANTOprazole 40 MG TAB PO SCH (08:55)
[2019-02-20] MEDS: LACTOBACILLUS ACIDOPHILUS (FLORANEX) TAB PO SCH ×3 (08:55→17:42)
[2019-02-20] MEDS: METOPROLOL SUCC 50MG EXT REL TAB PO SCH (08:55)
[2019-02-20] MEDS: CHOLECALCIFEROL 1,000 UNITS TAB PO SCH (08:55)
[2019-02-20] MEDS: ATORVASTATIN 20 MG TAB PO SCH (08:55)
[2019-02-20] MEDS: FERROUS SULFATE 325 MG TAB PO SCH ×2 (08:56→17:42)
[2019-02-20] MEDS: LISINOPRIL 20 MG TAB PO SCH (08:56)
[2019-02-20] MEDS: CALCIUM CARBONATE 1250MG TAB PO SCH ×2 (08:56→21:40)
[2019-02-20] MEDS: ASPIRIN 81 MG ECTAB PO SCH (08:56)
[2019-02-20] MEDS: MULTIVITAMIN TAB PO SCH (08:56)
[2019-02-20] MEDS: FLUOXETINE HCL 10 MG CAP PO SCH (08:56)
[2019-02-20] MEDS: NYSTATIN SUSP 500,000 U/5 ML UDC PO SCH ×4 (08:57→21:41)
[2019-02-20] MEDS: FLUTICASONE/VILANTEROL INHALER INH SCH (08:57)
[2019-02-20] MEDS: MAGNESIUM OXIDE 400 MG TAB PO SCH ×2 (09:00→21:40)
[2019-02-20] MEDS: POTASSIUM CHLORIDE 10 MEQ TABCR PO SCH ×2 (09:00→21:40)
--- NOTE | 2019-02-20 13:41 | Progress Note ---
Date of Service February 20, 2019 Assessment & Plan (1) Abscess of abdominal wall: cult growing E coli- interesting- sensative to most atbx wound vac in place transfused yesterday cont atbx Subjective see a/p Results & Data Vital Signs (Past 12 Hours) Vital Signs Temp Pulse Pulse Resp BP BP Pulse Ox 02/20/19 12:39 36.6 C 60 16 162/67 H 98 02/20/19 07:00 63 17 135/65 96 02/20/19 06:00 64 21 124/50 L 96 02/20/19 05:01 66 22 122/45 L 98 02/20/19 05:00 65 17 97 02/20/19 04:00 36.7 C 65 31 H 113/59 L 97 02/20/19 03:00 64 19 140/60 98 02/20/19 02:00 64 18 130/62 97
[2019-02-20] MEDS: FLUOXETINE HCL 20 MG CAP PO SCH (21:40)
[2019-02-21] MEDS: LEVOTHYROXINE SODIUM 25 MCG TABLET PO SCH (05:46)
--- NOTE | 2019-02-21 07:26 | Progress Note ---
Date of Service February 21, 2019 Assessment & Plan (1) Abscess of abdominal wall: pt stable- wound vac in place some erythema felix Rt lat abd- some improvement monitor erythema- had significant undermining of skin and may need addnl surgery if worsens depends on wound vac success Results & Data Vital Signs (Past 12 Hours) Vital Signs Temp Pulse Pulse Resp BP Pulse Ox 02/21/19 07:05 36.6 C 61 19 159/71 H 95 02/21/19 05:17 62 16 94 02/21/19 02:20 70 18 96 02/20/19 23:19 36.7 C 62 18 153/69 H 96 02/20/19 22:08 64 16 96
[2019-02-21] MEDS: METOPROLOL SUCC 50MG EXT REL TAB PO SCH (08:31)
[2019-02-21] MEDS: LACTOBACILLUS ACIDOPHILUS (FLORANEX) TAB PO SCH ×3 (08:31→16:27)
[2019-02-21] MEDS: PANTOprazole 40 MG TAB PO SCH (08:32)
[2019-02-21] MEDS: MULTIVITAMIN TAB PO SCH (08:32)
[2019-02-21] MEDS: CALCIUM CARBONATE 1250MG TAB PO SCH ×2 (08:32→20:33)
[2019-02-21] MEDS: CHOLECALCIFEROL 1,000 UNITS TAB PO SCH (08:32)
[2019-02-21] MEDS: FERROUS SULFATE 325 MG TAB PO SCH ×2 (08:33→16:27)
[2019-02-21] MEDS: MAGNESIUM OXIDE 400 MG TAB PO SCH ×2 (08:33→20:32)
[2019-02-21] MEDS: POTASSIUM CHLORIDE 10 MEQ TABCR PO SCH ×2 (08:33→20:32)
[2019-02-21] MEDS: ASPIRIN 81 MG ECTAB PO SCH (08:33)
[2019-02-21] MEDS: LISINOPRIL 20 MG TAB PO SCH (08:33)
[2019-02-21] MEDS: NYSTATIN SUSP 500,000 U/5 ML UDC PO SCH ×4 (08:33→20:32)
[2019-02-21] MEDS: FLUTICASONE/VILANTEROL INHALER INH SCH (08:35)
[2019-02-21] MEDS: FLUOXETINE HCL 10 MG CAP PO SCH (08:36)
[2019-02-21] MEDS ORDERED: PIPERACILL/TAZOBAC CONSULT ACTIVE PRN (10:25)
[2019-02-21] MEDS ORDERED: PIPERACILLIN/TAZOBACTAM 3.375 GM in DEXTROSE 5% 100 ML IV ONE (10:30)
--- NOTE | 2019-02-21 15:52 | Hospitalist Progress Note ---
Date of Service February 21, 2019 Assessment & Plan (1) Abdominal wall fluid collections: Fluid collection initially felt to be a hematoma. Drainage was not pursued at time of admission. Fistula also felt to be present. Shortly after, however, there was growing concern for an infected seroma/hematoma and thus IV antibiotics were started. She has been on IV antibiotics this entire admission except for <[address] scan on 02/10/19 showed modest improvement in size of collections. Then, CT scan on 02/16/19 actually showed mild worsening/enlargement. Daptomycin added on 02/12/19 to cover possibility of MRSA. Remains on zosyn cultures show pansensitive e coli 02/18/19, the fluid collection formed a sinus tract to the skin exuding COPIOUS foul-smelling, purulent fluid and blood. Dr Pablo took patient to OR 02/18/19 for clean-out of this collection. Wound VAC applied on 02/19 (2) A-fib: PAF x 24 hours this admission - resolved. Back in NSR for last 3 days. Recent echo with preserved EF and normal valvular function. She had no symptoms when she was in a.fib. Suspect that the stress of illness caused PAF. She had poor rate control despite oral BB and 2 doses of IV digoxin when she had it. CHADS-VASC score is at least a 6. Anticoagulation should be considered - especially in light of her recent TIA. HOWEVER, anticoagulation was NOT started due to concerns she would need a drainage procedure of her abdominal fluid collection. 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 (3) Transient ischemic attack: 02/11/19. Slurred speech with questionable facial droop. Now resolved MRI neg for acute stroke. CTA head/neck w/o stenosis or other findings. Echo w/o source of thrombus. Seen by Dr Hartmann - neurology - Advised to continue asa 81mg daily while hospitalized then resume plavix for secondary prevention at d/c. Reconsulted PT, OT, and speech therapy. In light of PAF and high CHADs-VASC score systemic anticoagulation would ultimately be recommended. HAS BLED score suggest at least 4.1% risk of major bleeding per year Poor candidate for anticoagulation however. NO TIA events since 02/11/19. (4) Anemia: Probably chronic as well as acute. Acute component secondary to acute blood loss from intra-abdominal hematomas (proven today when the infected hematoma spontaneously drained). s/p 2 units PRBCs earlier this admission. s/p 1 unit PRBCs on 02/17/19. s/p 2 units PRBC / B12/folate normal. Iron studies c/w ACD. Trans sat < 20 % --- cont ferrous sulfate 325mg BID. (5) ARF (acute renal failure): resolved peak Cr 1.49 Cr last few days 0.9-1 (6) Metabolic encephalopathy: 2nd to infectious process in abdomen. resolved. (7) Hyperlipidemia: hold home atorvastatin due to IV daptomycin use (8) Depression: cont fluoxetine could consider increase (9) Asthma: no exacerbation (10) HTN (hypertension): Discontinued amlodipine, lisinopril and HCTZ due to low-normal BPs Continue beta david due to recent a.fib (11) GERD (gastroesophageal reflux disease): continue PPI (12) Candidiasis of mouth and esophagus: nystatin 5cc qid x 7 days resolved (13) Hypothyroidism: most recent TSH wnl cont synthroid (14) Obstructive sleep apnea, adult: continue HS CPAP (15) Chronic kidney disease, stage 3a: stable Cr once again today baseline CrCl <60 (16) DVT prophylaxis: SCDs chemical means deferred due to intra-abdominal hematoma(s) Subjective pt is in good spirits, she unfortunately did have a wound vac malfunction, and needed to have Vac removed, there was some bleeding at the wound site that was controlled at the bedside by surgical attending, family at the bedside and updated Review of Systems Review of Systems: ROS: pt is improving but still fatigued No double vision blurry vision No problems with speech or swallowing No palpitations, chest pain or pressure No Wheezing or breathing issues mild abdominal pain and bleeding from wound No burning urine perry cath in place No focal joint pain or muscle pain No skin rashes or oral lesions wound bleeding No focused back pain or numbness or loss of strength No changes in memory or confusion Physical Exam Physical Exam: The patient appeared weakened and tired Vital signs as documented. Head exam is unremarkable. normocephalic, atraumatic Neck is without jugular venous distension, thyromegaly, or lymphademopathy Lungs are clear but decreased at the bases Cardiac exam reveals Irregular and rate controlled Abdominal exam reveals normal bowel sounds,large pressure dressing that is with sanguinous drainage seen Extremities are mildly edematous and both pedal pulses are present Neurologic exam is A&Ox3, no focal deficits, strength is equal bilateral Psychologically seems neither anxious or depressed Skin is warm Dry with abdominal wounds to abdomen Results & Data Vital Signs (Past 12 Hours) Vital Signs Temp Pulse Pulse Resp BP Pulse Ox 02/21/19 15:06 36.7 C 60 18 157/69 H 98 02/21/19 07:05 36.6 C 61 19 159/71 H 95 02/21/19 05:17 62 16 94 PG Care Time/CCT Total # of Minutes Spent Total Time Spent with Patient: Total time spent is greater than 50% in coordination of care (as documented) at patient's floor/unit and/or counseling patient: (1) ARF (acute renal failure) Acute renal failure type: unspecified Qualified Code(s): N17.9 - Acute kidney failure, unspecified (2) Anemia Anemia type: unspecified type Qualified Code(s): D64.9 - Anemia, unspecified (3) A-fib Atrial fibrillation type: unspecified Qualified Code(s): I48.91 - Unspecified atrial fibrillation (4) Depression Depression Type: other depression Qualified Code(s): F32.89 - Other specified depressive episodes (5) Hyperlipidemia Hyperlipidemia type: mixed hyperlipidemia Qualified Code(s): E78.2 - Mixed hyperlipidemia (6) Hypothyroidism Hypothyroidism type: acquired Qualified Code(s): E03.9 - Hypothyroidism, unspecified (7) GERD (gastroesophageal reflux disease) Esophagitis presence: esophagitis presence not specified Qualified Code(s): K21.9 - Gastro-esophageal reflux disease without esophagitis (8) HTN (hypertension) Hypertension type: essential hypertension Qualified Code(s): I10 - Essential (primary) hypertension (9) Asthma Asthma complication type: uncomplicated Asthma persistence: unspecified Asthma severity: unspecified severity Qualified Code(s): J45.909 - Unspecified asthma, uncomplicated
[2019-02-21] MEDS: PIPERACILLIN/TAZOBACTAM 3.375 GM in DEXTROSE 5% 100 ML IV SCH (16:27)
--- NOTE | 2019-02-21 16:42 | Surgery Progress Note ---
Date of Service February 21, 2019 Assessment & Plan (1) Abscess of abdominal wall: 02/21/19 wound packed with 4x4 gauze dressing applied will hold off any activity for pt today reevaluate tomorrow for vac placement suspect oozing related to antiplatelet rx no sign of abscess pt stable- wound vac in place some erythema felix Rt lat abd- some improvement monitor erythema- had significant undermining of skin and may need addnl surgery if worsens depends on wound vac success Subjective wound nurse reported bleeding abd wound when changing packing pt is in good spirits, she unfortunately did have a wound vac malfunction, and needed to have Vac removed, there was some bleeding at the wound site that was controlled at the bedside by surgical attending, family at the bedside and updated Physical Exam Physical Exam: wound open packing(gauze remove oozing from sub cut tissue generalized mesh depth of wound seen and covered bu fine granualtion tissue no exposure seen Results & Data Vital Signs (Past 12 Hours) Vital Signs Temp Pulse Pulse Resp BP Pulse Ox 02/21/19 15:06 36.7 C 60 18 157/69 H 98 02/21/19 07:05 36.6 C 61 19 159/71 H 95 02/21/19 05:17 62 16 94
--- NOTE | 2019-02-21 18:16 | Infectious Disease Progress Nt ---
Date of Service February 21, 2019 Assessment & Plan (1) Abscess of abdominal wall: Patient with large abdominal abscess with cultures growing E. coli, now with large abdominal wound with some difficulty with wound VAC drainage. Patient to continue on IV Zosyn for another 24 to 48 hours, then will consider transition dose oral antibiotics if taking adequate p.o. Patient discussed with surgery. Will follow. Subjective Patient seen in follow-up for abdominal abscess. Wound VAC had to be removed because of excessive drainage, now with packing in place. Patient denies any new complaints. States that her pain is controlled. No fever or chills. Cultures have grown sensitive E. coli. Review of Systems Review of Systems: All systems reviewed & are unremarkable except as noted in HPI & below Physical Exam Constitutional: WD/WN, vitals as above comfortable; no acute distress Eyes: PERRL, conjunctivae normal, anicteric sclerae ENMT: external ear and nose normal, oropharynx normal Neck: trachea midline, no thyromegaly neck nontender Respiratory: normal respiratory effort, lungs clear to auscultation normal percussion; no respiratory distress Cardiovascular: Rate/Rhythm: regular rate and regular rhythm Heart Sounds: normal S1 and normal S2; no gallop, no murmur and no cardiac rub Gastrointestinal (Abdomen): Inspection/Auscultation: + abdomen distended and normal bowel sounds Percussion/Palpation: + abdomen tender; no hepatosplenomegaly Large open wound with serous drainage Musculoskeletal: no cyanosis or clubbing, extremities motor strength 5/5 No spinal tenderness, no joint swelling or erythema Skin: no rashes, warm and dry Dressing in place abdominal wall Neurologic: moves all extremities and awake; no focal motor deficits Motor/Sensory: no sensory deficit Psychiatric: A+Ox3, euthymic affect Lymphatic: no cervical or axillary lymphadenopathy no inguinal lymphadenopathy Results & Data Vital Signs (Past 12 Hours) Vital Signs Temp Pulse Resp BP Pulse Ox 02/21/19 15:06 36.7 C 60 18 157/69 H 98 02/21/19 07:05 36.6 C 61 19 159/71 H 95 Laboratory Results Laboratory Results - last 48 hr 02/19/19 02/20/19 02/20/19 13:43 07:33 07:33 WBC 9.45 RBC 3.25 L Hgb 9.1 L Hct 27.8 L MCV 85.5 MCH 28.0 MCHC 32.7 RDW Std Deviation 51.5 H RDW Coeff of Elliot 16.4 H Plt Count 330 MPV 7.9 Immature Gran % (Auto) 0.8 Neut % (Auto) 73.0 Lymph % (Auto) 10.3 [place] % (Auto) 7.7 Eos % (Auto) 7.2 Baso % (Auto) 1.0 Immature Gran # (Auto) 0.08 H Neut # (Auto) 6.90 H Lymph # (Auto) 0.97 L [place] # (Auto) 0.73 H Eos # (Auto) 0.68 H Baso # (Auto) 0.09 Sodium 140 Potassium 4.6 Chloride 109 H Carbon Dioxide 24 Anion Gap 7.0 BUN 21 H Creatinine 0.82 Est Cr Clr Drug Dosing 46.4 Est GFR ( Amer) 74.6 Est GFR (Non-Af Amer) 64.3 BUN/Creatinine Ratio 25.6 H Glucose 115 H Calcium 8.9 Crossmatch See Detail Diagnostic Findings Microbiology 02/18/19 10:37 Abdomen Gram Stain - Final 02/18/19 10:37 Abdomen Aerobic and Anaerobic Culture - Preliminary Escherichia coli Bacteroides uniformis 02/18/19 Unknown Abdomen Gram Stain - Final 02/18/19 Unknown Abdomen Wound Culture - Final Escherichia coli 02/06/19 15:05 Blood Aerobic Blood Culture - Final No growth in Aerobic bottle after 5 days. 02/06/19 15:05 Blood Anaerobic Blood Culture - Final No growth in Anaerobic bottle after 5 days. 02/06/19 15:05 Blood Aerobic Blood Culture - Final No growth in Aerobic bottle after 5 days. 02/06/19 15:05 Blood Anaerobic Blood Culture - Final No growth in Anaerobic bottle after 5 days. 02/06/19 19:50 Urine,Clean Catch Urine Culture - Final More than three types of organisms present, all high counts mixed probable skin tierney - No further identifications or sensitivities to follow.
[2019-02-21] MEDS: FLUOXETINE HCL 20 MG CAP PO SCH (20:33)
[2019-02-22] MEDS: PIPERACILLIN/TAZOBACTAM 3.375 GM in DEXTROSE 5% 100 ML IV SCH ×4 (00:24→23:47)
[2019-02-22 05:49] LABS: Hemoglobin 8.1 g/dL (12.0-16.0); Mean Corpuscular Hgb Conc 32.4 g/dL (32-36); Mean Corpuscular Volume 86.5 fL (80-100); Mean Platelet Volume 7.8 fL (7.4-10.4); Platelet Count 316 K/uL (130-400); RDW Coefficient of Variation 16.1 % (11.5-14.5); RDW Standard Deviation 50.3 fL (36.4-46.3); Red Blood Count 2.89 M/uL (4.2-5.4)
[2019-02-22] MEDS: LEVOTHYROXINE SODIUM 25 MCG TABLET PO SCH (05:52)
--- NOTE | 2019-02-22 06:19 | Progress Note ---
Date of Service February 22, 2019 Assessment & Plan (1) Abscess of abdominal wall: packing in place- expected drainage possible vac later today- will try to have surg team to check wound when nurses change. cellulitis improved- pt very weak supportive care- ambulate as tolerated Results & Data Vital Signs (Past 12 Hours) Vital Signs Temp Pulse Pulse Resp BP Pulse Ox 02/21/19 23:27 36.8 C 62 14 166/71 H 94 02/21/19 22:29 63 16 97
[2019-02-22 06:28] LABS: Basophils # (auto) 0.06 K/uL (0-0.2); Basophils % (auto) 0.6 %; Eosinophils # (auto) 0.51 K/uL (0-0.5); Eosinophils % (auto) 5.4 %; Immature Granulocytes % (auto) 1.1 %; Lymphocytes # (auto) 1.27 K/uL (1.2-3.4); Lymphocytes % (auto) 13.5 %; Monocytes # (auto) 0.73 K/uL (0.11-0.59); Monocytes % (auto) 7.8 %; Neutrophils # (auto) 6.73 K/uL (1.4-6.5); Neutrophils % (auto) 71.6 %; RBC Morphology Unremarkable
[2019-02-22] MEDS: FERROUS SULFATE 325 MG TAB PO SCH ×2 (08:59→16:56)
[2019-02-22] MEDS: LACTOBACILLUS ACIDOPHILUS (FLORANEX) TAB PO SCH ×3 (08:59→16:55)
[2019-02-22] MEDS: LISINOPRIL 20 MG TAB PO SCH (09:05)
[2019-02-22] MEDS: METOPROLOL SUCC 50MG EXT REL TAB PO SCH (09:05)
[2019-02-22] MEDS: CALCIUM CARBONATE 1250MG TAB PO SCH ×2 (09:05→20:10)
[2019-02-22] MEDS: CHOLECALCIFEROL 1,000 UNITS TAB PO SCH (09:05)
[2019-02-22] MEDS: PANTOprazole 40 MG TAB PO SCH (09:05)
[2019-02-22] MEDS: FLUOXETINE HCL 10 MG CAP PO SCH (09:06)
[2019-02-22] MEDS: POTASSIUM CHLORIDE 10 MEQ TABCR PO SCH ×2 (09:06→20:10)
[2019-02-22] MEDS: MAGNESIUM OXIDE 400 MG TAB PO SCH ×2 (09:06→20:10)
[2019-02-22] MEDS: ASPIRIN 81 MG ECTAB PO SCH (09:06)
[2019-02-22] MEDS: NYSTATIN SUSP 500,000 U/5 ML UDC PO SCH ×3 (09:06→16:55)
[2019-02-22] MEDS: FLUTICASONE/VILANTEROL INHALER INH SCH (09:07)
[2019-02-22] MEDS: MULTIVITAMIN TAB PO SCH (09:12)
--- NOTE | 2019-02-22 14:53 | Wound Progress Note ---
Date of Service February 22, 2019 Assessment & Plan (1) Abscess of abdominal wall: No debridement was required today. Bleeding appears to have stopped with pressure. At this point will reapply irrigating wound VAC. Will use the denser phone from a [employer] cleanse wound VAC. We will continue to irrigate for 10 minutes and have negative pressure for 2 hours. We will continue to follow. Thank you for allowing me to participate in the care of this patient. Please not hesitate to call with any questions. Present on Admission?: Yes Subjective Patient seen at bedside with daughter and son-in-law in the room. Patient is without complaints. She has been packing her abdominal wounds with gauze. She remains on IV antibiotics. Review of Systems Review of Systems: All systems reviewed & are unremarkable except as noted in HPI & below Physical Exam Skin: Wound measuring is recorded in nursing documentation. There is some good granulation tissue in the wound but appears more pink. Patient was seen with Dr. Pablo who did remove some of the clot in the wound. There was some oozing which stopped with pressure. Neurologic: awake; not confused Psychiatric: A+Ox3, euthymic affect Results & Data Vital Signs (Past 12 Hours) Vital Signs Temp Pulse Resp BP Pulse Ox 02/22/19 06:57 36.6 C 59 L 18 149/71 H 99
--- NOTE | 2019-02-22 17:39 | Hospitalist Progress Note ---
Date of Service February 22, 2019 Assessment & Plan (1) Abdominal wall fluid collections: Fluid collection initially felt to be a hematoma. Drainage was not pursued at time of admission. Fistula also felt to be present. Shortly after, however, there was growing concern for an infected seroma/hematoma and thus IV antibiotics were started. She has been on IV antibiotics this entire admission except for <[address] scan on 02/10/19 showed modest improvement in size of collections. Then, CT scan on 02/16/19 actually showed mild worsening/enlargement. Daptomycin added on 02/12/19 to cover possibility of MRSA. Remains on zosyn cultures show pansensitive e coli 02/18/19, the fluid collection formed a sinus tract to the skin exuding COPIOUS foul-smelling, purulent fluid and blood. Dr Pablo took patient to OR 02/18/19 for clean-out of this collection. Wound VAC applied on 02/19, wound VAC became blocked and had to be removed. Wound was repacked on 02/22 by surgery final decision on the treatment of her wound is a rate limiting step to prevent her from pursuing therapy as she is unable to perform most physical outpatient therapy due to restrictions in movement of her trunk due to her large open wound healing by secondary intent (2) A-fib: PAF x 24 hours this admission - resolved. Back in NSR Recent echo with preserved EF and normal valvular function. She had no symptoms when she was in a.fib. Suspect that the stress of illness caused PAF. She had poor rate control despite oral BB and 2 doses of IV digoxin when she had it. CHADS-VASC score is at least a 6. Anticoagulation should be considered - especially in light of her recent TIA. 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 (3) Transient ischemic attack: 02/11/19. Slurred speech with questionable facial droop. Now resolved MRI neg for acute stroke. CTA head/neck w/o stenosis or other findings. Echo w/o source of thrombus. Seen by Dr Hartmann - neurology - Advised to continue asa 81mg daily while hospitalized then resume plavix for secondary prevention at d/c. In light of PAF and high CHADs-VASC score systemic anticoagulation would ultimat radha be recommended. HAS BLED score suggest at least 4.1% risk of major bleeding per year NO TIA events since 02/11/19. (4) Anemia: Probably chronic as well as acute. Acute component secondary to acute blood loss from intra-abdominal hematomas (proven today when the infected hematoma spontaneously drained). s/p 2 units PRBCs earlier this admission. s/p 1 unit PRBCs on 02/17/19. s/p 2 units PRBC / B12/folate normal. Iron studies c/w ACD. Trans sat < 20 % --- cont ferrous sulfate 325mg BID. (5) ARF (acute renal failure): resolved lisinopril has been restarted peak Cr 1.49 (6) Metabolic encephalopathy: 2nd to infectious process in abdomen. resolved. (7) Hyperlipidemia: hold home atorvastatin due to IV daptomycin use (8) Depression: cont fluoxetine as patient's health is improved her spirits are also improve the bili will stay with her stable fluoxetine dose (9) Asthma: no exacerbation (10) HTN (hypertension): Discontinued amlodipine, Continue metoprolol and lisinopril (11) GERD (gastroesophageal reflux disease): continue PPI (12) Candidiasis of mouth and esophagus: nystatin 5cc qid x 7 days resolved (13) Hypothyroidism: most recent TSH wnl cont synthroid (14) Obstructive sleep apnea, adult: continue HS CPAP (15) Chronic kidney disease, stage 3a: stable Cr once again today baseline CrCl <60 (16) DVT prophylaxis: SCDs chemical means deferred due to intra-abdominal hematoma(s) Subjective Patient has no complaints or problems she was having some bleeding from her wound surgery and wound care at the bedside with myself we did inspect the wound there was some clot in the left margin this is evaluated by surgeon with manual technique and the wound was packed discussions at the time were to whether a back to be placed or not family is also at bedside Review of Systems Review of Systems: ROS: Patient appears to be improving No double vision blurry vision No problems with speech or swallowing No palpitations, chest pain or pressure No Wheezing or breathing issues No abdominal pain is putting of her open wound explored she was in no discomfort nausea vomiting No burning urine urine frequency or changes in color No focal joint pain or muscle pain No skin rashes or oral lesions No unusual bruising or bleeding No focused back pain or numbness or loss of strength No changes in memory or confusion Physical Exam Physical Exam: The patient appeared well nourished and in only minor distress Vital signs as documented. Head exam is unremarkable. normocephalic, atraumatic Neck is without jugular venous distension, thyromegaly, or lymphademopathy Lungs are clear to auscultation and percussion. Cardiac exam reveals rate controlled but irregularly irregular Abdominal exam reveals large ventral open wound down to the muscular layer with exposed mesh, normal bowel sounds, the wound had a manual removal of clot by surgery at the bedside Extremities are nonedematous and both pedal pulses are present Neurologic exam is A&Ox3, no focal deficits, Psychologically seems neither anxious or depressed Results & Data Vital Signs (Past 12 Hours) Vital Signs Temp Pulse Resp BP Pulse Ox 02/22/19 15:24 36.9 C 61 16 115/66 94 02/22/19 06:57 36.6 C 59 L 18 149/71 H 99 PG Care Time/CCT Total # of Minutes Spent Total Time Spent with Patient: Total time spent is greater than 50% in coordination of care (as documented) at patient's floor/unit and/or counseling patient: (1) ARF (acute renal failure) Acute renal failure type: unspecified Qualified Code(s): N17.9 - Acute kidney failure, unspecified (2) Anemia Anemia type: unspecified type Qualified Code(s): D64.9 - Anemia, unspecified (3) A-fib Atrial fibrillation type: unspecified Qualified Code(s): I48.91 - Unspecified atrial fibrillation (4) Depression Depression Type: other depression Qualified Code(s): F32.89 - Other specified depressive episodes (5) Hyperlipidemia Hyperlipidemia type: mixed hyperlipidemia Qualified Code(s): E78.2 - Mixed hyperlipidemia (6) Hypothyroidism Hypothyroidism type: acquired Qualified Code(s): E03.9 - Hypothyroidism, unspecified (7) GERD (gastroesophageal reflux disease) Esophagitis presence: esophagitis presence not specified Qualified Code(s): K21.9 - Gastro-esophageal reflux disease without esophagitis (8) HTN (hypertension) Hypertension type: essential hypertension Qualified Code(s): I10 - Essential (primary) hypertension (9) Asthma Asthma complication type: uncomplicated Asthma persistence: unspecified Asthma severity: unspecified severity Qualified Code(s): J45.909 - Unspecified asthma, uncomplicated
[2019-02-22] MEDS: FLUOXETINE HCL 20 MG CAP PO SCH (20:10)
--- NOTE | 2019-02-23 05:15 | Infectious Disease Progress Nt ---
Date of Service February 22, 2019 Assessment & Plan (1) Abscess of abdominal wall: Patient with large abdominal abscess with cultures growing E. coli, now with large abdominal wound with some difficulty with wound VAC drainage. Patient to continue on IV Zosyn for now, wound VAC to be replaced. Will follow. Subjective Patient seen in follow-up for abdominal abscess. And large amount of drainage, wound VAC was removed. Otherwise feeling weak and debilitated but offers no new complaints. Remains afebrile. Review of Systems Review of Systems: All systems reviewed & are unremarkable except as noted in HPI & below Physical Exam Constitutional: WD/WN, vitals as above comfortable; no acute distress Eyes: PERRL, conjunctivae normal, anicteric sclerae ENMT: external ear and nose normal, oropharynx normal Neck: trachea midline, no thyromegaly normal visual inspection; neck nontender Respiratory: normal respiratory effort, lungs clear to auscultation normal percussion; no respiratory distress Cardiovascular: RRR, no murmur, no edema Rate/Rhythm: regular rate and regular rhythm Heart Sounds: normal S1 and normal S2; no gallop, no murmur and no cardiac rub Gastrointestinal (Abdomen): normal bowel sounds, soft, nontender, no hepatosplenomegaly Inspection/Auscultation: + abdomen distended and normal bowel sounds Percussion/Palpation: + abdomen tender; no hepatosplenomegaly and no abdominal mass Musculoskeletal: no cyanosis or clubbing, extremities motor strength 5/5 Head/Neck/Chest: normocephalic, head atraumatic and neck supple Extremities: strength 5/5 throughout Skin: no rashes, warm and dry normal turgor Neurologic: moves all extremities and awake; no focal motor deficits Speech / Cognition: normal speech Motor/Sensory: no sensory deficit Psychiatric: A+Ox3, euthymic affect Lymphatic: no cervical or axillary lymphadenopathy no inguinal lymphadenopathy Results & Data Vital Signs (Past 12 Hours) Vital Signs Temp Pulse Pulse Resp BP Pulse Ox 02/22/19 23:50 37.2 C 62 14 162/69 H 94 02/22/19 22:21 64 16 96 Laboratory Results Short CBC 02/22/19 Range/Units 05:05 WBC 9.40 (4.8-10.8) K/uL Hgb 8.1 L (12.0-16.0) g/dL Hct 25.0 L (37-47) % Plt Count 316 (130-400) K/uL Diagnostic Findings Microbiology 02/18/19 10:37 Abdomen Gram Stain - Final 02/18/19 10:37 Abdomen Aerobic and Anaerobic Culture - Preliminary Escherichia coli Bacteroides uniformis 02/18/19 Unknown Abdomen Gram Stain - Final 02/18/19 Unknown Abdomen Wound Culture - Final Escherichia coli 02/06/19 15:05 Blood Aerobic Blood Culture - Final No growth in Aerobic bottle after 5 days. 02/06/19 15:05 Blood Anaerobic Blood Culture - Final No growth in Anaerobic bottle after 5 days. 02/06/19 15:05 Blood Aerobic Blood Culture - Final No growth in Aerobic bottle after 5 days. 02/06/19 15:05 Blood Anaerobic Blood Culture - Final No growth in Anaerobic bottle after 5 days. 02/06/19 19:50 Urine,Clean Catch Urine Culture - Final More than three types of organisms present, all high counts mixed probable skin tierney - No further identifications or sensitivities to follow.
[2019-02-23] MEDS: LEVOTHYROXINE SODIUM 25 MCG TABLET PO SCH (06:47)
--- NOTE | 2019-02-23 07:31 | Progress Note ---
Date of Service February 23, 2019 Assessment & Plan (1) Abscess of abdominal wall: vac malfunction- not from bleeding from what I understand- alarm going off therefore vac removed and wound packed - serous drainage Wound looked very good yesterday and cellulitis resolving Can cont to pack or use vac - per wound care team Dr Renee covering over weekend Results & Data Vital Signs (Past 12 Hours) Vital Signs Temp Pulse Pulse Resp BP Pulse Ox 02/22/19 23:50 37.2 C 62 14 162/69 H 94 02/22/19 22:21 64 16 96
[2019-02-23] MEDS: FERROUS SULFATE 325 MG TAB PO SCH ×2 (08:28→18:18)
[2019-02-23] MEDS: LACTOBACILLUS ACIDOPHILUS (FLORANEX) TAB PO SCH ×3 (08:34→18:18)
[2019-02-23] MEDS: PIPERACILLIN/TAZOBACTAM 3.375 GM in DEXTROSE 5% 100 ML IV SCH ×3 (09:04→23:40)
[2019-02-23] MEDS: FLUTICASONE/VILANTEROL INHALER INH SCH (10:13)
[2019-02-23] MEDS: MAGNESIUM OXIDE 400 MG TAB PO SCH ×2 (10:14→21:48)
[2019-02-23] MEDS: FLUOXETINE HCL 10 MG CAP PO SCH (10:14)
[2019-02-23] MEDS: ASPIRIN 81 MG ECTAB PO SCH (10:14)
[2019-02-23] MEDS: POTASSIUM CHLORIDE 10 MEQ TABCR PO SCH ×2 (10:14→21:47)
[2019-02-23] MEDS: LISINOPRIL 20 MG TAB PO SCH (10:15)
[2019-02-23] MEDS: CHOLECALCIFEROL 1,000 UNITS TAB PO SCH (10:15)
[2019-02-23] MEDS: MULTIVITAMIN TAB PO SCH (10:15)
[2019-02-23] MEDS: METOPROLOL SUCC 50MG EXT REL TAB PO SCH (10:15)
[2019-02-23] MEDS: CALCIUM CARBONATE 1250MG TAB PO SCH ×2 (10:15→21:48)
[2019-02-23] MEDS: PANTOprazole 40 MG TAB PO SCH (10:15)
--- NOTE | 2019-02-23 13:36 | Hospitalist Progress Note ---
Date of Service February 23, 2019 Assessment & Plan (1) Abdominal wall fluid collections: Fluid collection initially felt to be a hematoma. Drainage was not pursued at time of admission. Fistula also felt to be present. Shortly after, however, there was growing concern for an infected seroma/hematoma and thus IV antibiotics were started. Patient eventually had spontaneous eruption of fistulous tract to the skin which required urgent incision and drainage on 02/18 eventually growing E. coli She has been on IV antibiotics this entire admission except for <[address] scan on 02/10/19 showed modest improvement in size of collections. Then, CT scan on 02/16/19 actually showed mild worsening/enlargement. Remains on zosyn cultures show pansensitive e coli Dr Pablo took patient to OR 02/18/19 for clean-out of this collection. Wound VAC applied on 02/19, wound VAC became blocked and had to be removed. Wound was repacked on 02/22 by surgery final decision on the treatment of her wound is a rate limiting step to prevent her from pursuing therapy as she is unable to perform most physical outpatient therapy due to restrictions in movement of her trunk due to her large open wound healing by secondary intent (2) A-fib: PAF x 24 hours this admission - resolved. Back in NSR Recent echo with preserved EF and normal valvular function. She had no symptoms when she was in a.fib. Suspect that the stress of illness caused PAF. She had poor rate control despite oral BB and 2 doses of IV digoxin when she had it. CHADS-VASC score is at least a 6. Anticoagulation should be considered - especially in light of her recent TIA. 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 (3) Transient ischemic attack: 02/11/19. Slurred speech with questionable facial droop. Now resolved MRI neg for acute stroke. CTA head/neck w/o stenosis or other findings. Echo w/o source of thrombus. Seen by Dr Hartmann - neurology - Advised to continue asa 81mg daily while hospitalized then resume plavix for secondary prevention at d/c. In light of PAF and high CHADs-VASC score systemic anticoagulation would ultimately be recommended. HAS BLED score suggest at least 4.1% risk of major bleeding per year NO TIA events since 02/11/19. (4) Anemia: Probably chronic as well as acute. Acute component secondary to acute blood loss from intra-abdominal hematomas (proven today when the infected hematoma spontaneously drained). s/p 2 units PRBCs earlier this admission. s/p 1 unit PRBCs on 02/17/19. s/p 2 units PRBC / B12/folate normal. Iron studies c/w ACD. Trans sat < 20 % --- cont ferrous sulfate 325mg BID. (5) ARF (acute renal failure): resolved lisinopril has been restarted peak Cr 1.49 (6) Metabolic encephalopathy: 2nd to infectious process in abdomen. resolved. (7) Hyperlipidemia: hold home atorvastatin due to IV daptomycin use (8) Depression: cont fluoxetine as patient's health is improved her spirits are also improve the bili will stay with her stable fluoxetine dose (9) Asthma: no exacerbation (10) HTN (hypertension): Discontinued amlodipine, Continue metoprolol and lisinopril (11) GERD (gastroesophageal reflux disease): continue PPI (12) Candidiasis of mouth and esophagus: nystatin 5cc qid x 7 days resolved (13) Hypothyroidism: most recent TSH wnl cont synthroid (14) Obstructive sleep apnea, adult: continue HS CPAP (15) Chronic kidney disease, stage 3a: stable Cr once again today baseline CrCl <60 (16) DVT prophylaxis: SCDs chemical means deferred due to intra-abdominal hematoma(s) Subjective Patient is in good spirits she has no significant complaints or problems her wound VAC is having challenges with occlusion due to clot. It was replaced yesterday and will likely be replaced again today. He continues to have anemia which is a combination of acute blood loss anemia and anemia of chronic disease pending laboratory work for 02/24 Daughter is at the bedside and updated Review of Systems Review of Systems: ROS: Vision appears weak and tired fatigued No double vision blurry vision No problems with speech or swallowing No palpitations, chest pain or pressure No Wheezing or breathing issues Only minor abdominal pain without nausea vomiting or diarrhea No burning urine has a catheter in place No focal joint pain or muscle pain No skin rashes or oral lesions No unusual bruising or bleeding No focused back pain or numbness or loss of strength No changes in memory or confusion Physical Exam Physical Exam: The patient appeared weak and tired appears more pale Vital signs as documented. She appears to remain in sinus rhythm Head exam is unremarkable. normocephalic, atraumatic Neck is without jugular venous distension, thyromegaly, or lymphademopathy Lungs are decreased at the bases with likely atelectasis incentive spirometry is encouraged Cardiac exam reveals Rhythm is regular. Abdominal exam reveals wound dressing is in place today with a VAC. There is no surrounding erythema or fluctuance, she continues to have normal bowel sounds. Extremities are nonedematous and both pedal pulses are present Neurologic exam is A&Ox3, no focal deficits, strength is equal bilateral Psychologically seems neither anxious or depressed Skin is warm Dry Results & Data Vital Signs (Past 12 Hours) Vital Signs Temp Pulse Resp BP Pulse Ox 02/23/19 07:30 36.3 C L 63 18 152/62 H 97 PG Care Time/CCT Total # of Minutes Spent Total Time Spent with Patient: Total time spent is greater than 50% in coordination of care (as documented) at patient's floor/unit and/or counseling patient: (1) A-fib Atrial fibrillation type: unspecified Qualified Code(s): I48.91 - Unspecified atrial fibrillation (2) Anemia Anemia type: unspecified type Qualified Code(s): D64.9 - Anemia, unspecified (3) ARF (acute renal failure) Acute renal failure type: unspecified Qualified Code(s): N17.9 - Acute kidney failure, unspecified (4) Hyperlipidemia Hyperlipidemia type: mixed hyperlipidemia Qualified Code(s): E78.2 - Mixed hyperlipidemia (5) Depression Depression Type: other depression Qualified Code(s): F32.89 - Other specified depressive episodes (6) Asthma Asthma severity: unspecified severity Asthma persistence: unspecified Asthma complication type: uncomplicated Qualified Code(s): J45.909 - Unspecified asthma, uncomplicated (7) HTN (hypertension) Hypertension type: essential hypertension Qualified Code(s): I10 - Essential (primary) hypertension (8) GERD (gastroesophageal reflux disease) Esophagitis presence: esophagitis presence not specified Qualified Code(s): K21.9 - Gastro-esophageal reflux disease without esophagitis (9) Hypothyroidism Hypothyroidism type: acquired Qualified Code(s): E03.9 - Hypothyroidism, unspecified
--- NOTE | 2019-02-23 14:40 | Infectious Disease Progress Nt ---
Date of Service February 23, 2019 Assessment & Plan (1) Abscess of abdominal wall: Patient with large abdominal abscess with cultures growing E. coli, now with large abdominal wound with some difficulty with wound VAC drainage. Patient to continue on IV Zosyn for now, wound VAC to be replaced. Will follow. Subjective Patient seen in follow-up for abdominal abscess. Offers no new complaints today. Relatively comfortable. Awaiting replacement of wound VAC. No fever. Review of Systems Review of Systems: All systems reviewed & are unremarkable except as noted in HPI & below Physical Exam Constitutional: WD/WN, vitals as above comfortable; no acute distress Eyes: PERRL, conjunctivae normal, anicteric sclerae ENMT: external ear and nose normal, oropharynx normal Neck: trachea midline, no thyromegaly normal visual inspection; neck nontender Respiratory: normal respiratory effort, lungs clear to auscultation normal percussion; no respiratory distress Cardiovascular: RRR, no murmur, no edema Rate/Rhythm: regular rate and regular rhythm Heart Sounds: normal S1 and normal S2; no gallop, no murmur and no cardiac rub Gastrointestinal (Abdomen): normal bowel sounds, soft, nontender, no hepatosplenomegaly Inspection/Auscultation: + abdomen distended and normal bowel sounds Percussion/Palpation: + abdomen tender; no hepatosplenomegaly and no abdominal mass Musculoskeletal: no cyanosis or clubbing, extremities motor strength 5/5 Head/Neck/Chest: normocephalic, head atraumatic and neck supple Extremities: strength 5/5 throughout Skin: no rashes, warm and dry normal turgor Neurologic: moves all extremities and awake; no focal motor deficits Speech / Cognition: normal speech Motor/Sensory: no sensory deficit Psychiatric: A+Ox3, euthymic affect Lymphatic: no cervical or axillary lymphadenopathy no inguinal lymphadenopathy Results & Data Vital Signs (Past 12 Hours) Vital Signs Temp Pulse Resp BP Pulse Ox 02/23/19 07:30 36.3 C L 63 18 152/62 H 97 Laboratory Results Laboratory Results - last 48 hr 02/22/19 05:05 WBC 9.40 RBC 2.89 L Hgb 8.1 L Hct 25.0 L MCV 86.5 MCH 28.0 MCHC 32.4 RDW Std Deviation 50.3 H RDW Coeff of Elliot 16.1 H Plt Count 316 MPV 7.8 Immature Gran % (Auto) 1.1 Neut % (Auto) 71.6 Lymph % (Auto) 13.5 Routt % (Auto) 7.8 Eos % (Auto) 5.4 Baso % (Auto) 0.6 Immature Gran # (Auto) 0.10 H Neut # (Auto) 6.73 H Lymph # (Auto) 1.27 Routt # (Auto) 0.73 H Eos # (Auto) 0.51 H Baso # (Auto) 0.06 RBC Morphology Unremarkable Diagnostic Findings Microbiology 02/18/19 10:37 Abdomen Gram Stain - Final 02/18/19 10:37 Abdomen Aerobic and Anaerobic Culture - Preliminary Escherichia coli Bacteroides uniformis 02/18/19 Unknown Abdomen Gram Stain - Final 02/18/19 Unknown Abdomen Wound Culture - Final Escherichia coli 02/06/19 15:05 Blood Aerobic Blood Culture - Final No growth in Aerobic bottle after 5 days. 02/06/19 15:05 Blood Anaerobic Blood Culture - Final No growth in Anaerobic bottle after 5 days. 02/06/19 15:05 Blood Aerobic Blood Culture - Final No growth in Aerobic bottle after 5 days. 02/06/19 15:05 Blood Anaerobic Blood Culture - Final No growth in Anaerobic bottle after 5 days. 02/06/19 19:50 Urine,Clean Catch Urine Culture - Final More than three types of organisms present, all high counts mixed probable skin tierney - No further identifications or sensitivities to follow.
[2019-02-23] MEDS: FLUOXETINE HCL 20 MG CAP PO SCH (21:48)
[2019-02-24] MEDS: LEVOTHYROXINE SODIUM 25 MCG TABLET PO SCH (05:45)
[2019-02-24] MEDS: PIPERACILLIN/TAZOBACTAM 3.375 GM in DEXTROSE 5% 100 ML IV SCH ×3 (08:09→23:24)
[2019-02-24] MEDS: CALCIUM CARBONATE 1250MG TAB PO SCH ×2 (08:12→20:57)
[2019-02-24] MEDS: LACTOBACILLUS ACIDOPHILUS (FLORANEX) TAB PO SCH ×3 (08:12→17:39)
[2019-02-24] MEDS: CHOLECALCIFEROL 1,000 UNITS TAB PO SCH (08:12)
[2019-02-24] MEDS: POTASSIUM CHLORIDE 10 MEQ TABCR PO SCH ×2 (08:13→20:57)
[2019-02-24] MEDS: LISINOPRIL 20 MG TAB PO SCH (08:13)
[2019-02-24] MEDS: FLUOXETINE HCL 10 MG CAP PO SCH (08:13)
[2019-02-24] MEDS: MULTIVITAMIN TAB PO SCH (08:13)
[2019-02-24] MEDS: PANTOprazole 40 MG TAB PO SCH (08:13)
[2019-02-24] MEDS: MAGNESIUM OXIDE 400 MG TAB PO SCH ×2 (08:13→20:57)
[2019-02-24] MEDS: METOPROLOL SUCC 50MG EXT REL TAB PO SCH (08:13)
[2019-02-24] MEDS: ASPIRIN 81 MG ECTAB PO SCH (08:13)
[2019-02-24] MEDS: FERROUS SULFATE 325 MG TAB PO SCH ×2 (08:13→17:39)
[2019-02-24] MEDS: FLUTICASONE/VILANTEROL INHALER INH SCH (08:14)
[2019-02-24 08:22] LABS: Hematocrit (blood only) 25.4 % (37-47); Hemoglobin 8.2 g/dL (12.0-16.0); Mean Corpuscular Hgb Conc 32.3 g/dL (32-36); Mean Corpuscular Volume 88.2 fL (80-100); Mean Platelet Volume 8.1 fL (7.4-10.4); Platelet Count 333 K/uL (130-400); RDW Coefficient of Variation 16.3 % (11.5-14.5); RDW Standard Deviation 52.5 fL (36.4-46.3); Red Blood Count 2.88 M/uL (4.2-5.4); White Blood Count 10.62 K/uL (4.8-10.8)
[2019-02-24 08:54] LABS: BUN Creatinine Ratio 15.9 (10-20); Calcium 9.1 mg/dl (8.5-10.1); Creatinine Clr Calc Pharmacy 45.9 ml/min; Est GFR (African American) 73.5; Est GFR (Non-African American) 63.4; Potassium 4.2 mmol/L (3.5-5.1)
--- NOTE | 2019-02-24 09:59 | Surgery Progress Note ---
Date of Service February 24, 2019 Assessment & Plan (1) Abscess of abdominal wall: doing well wound vac working well wound evaluation Tuesday with vac change Present on Admission?: Yes Subjective POD #6 I&D abdominal wall abscess wound vac in place, working well no complaints Review of Systems Constitutional: no fever and no chills Respiratory: no cough and no dyspnea Cardiovascular: no chest pain Gastrointestinal: no abdominal pain, no nausea and no vomiting Musculoskeletal: no back pain Physical Exam Constitutional: well developed and well nourished Neck: trachea midline Respiratory: normal respiratory effort, lungs clear to auscultation Cardiovascular: RRR, no murmur, no edema Gastrointestinal (Abdomen): Inspection/Auscultation: normal bowel sounds; abdomen not distended Percussion/Palpation: + abdomen tender (mild) and abdomen soft wound vac in place, serosanguinous drainage Skin: no rashes, warm and dry Results & Data Vital Signs (Past 12 Hours) Vital Signs Temp Pulse Pulse Pulse Resp BP Pulse Ox 02/24/19 07:18 36.3 C L 61 15 170/79 H 98 02/23/19 22:56 36.5 C 68 16 136/79 95 02/23/19 22:07 61 16 96
[2019-02-24] MEDS: SENNA 8.6 MG TAB PO SCH (12:23)
--- NOTE | 2019-02-24 16:14 | Hospitalist Progress Note ---
Date of Service February 24, 2019 Assessment & Plan (1) Abdominal wall fluid collections: Fluid collection initially felt to be a hematoma. Drainage was not pursued at time of admission. Fistula also felt to be present. Shortly after, however, there was growing concern for an infected seroma/hematoma and thus IV antibiotics were started. Patient eventually had spontaneous eruption of fistulous tract to the skin which required urgent incision and drainage on 02/18 eventually growing E. coli She has been on IV antibiotics this entire admission except for <[address] scan on 02/10/19 showed modest improvement in size of collections. Then, CT scan on 02/16/19 actually showed mild worsening/enlargement. Remains on zosyn cultures show pansensitive e coli, infectious disease continues on Zosyn therapy as of 02/23 Dr Pablo took patient to OR 02/18/19 for clean-out of this collection. Wound VAC applied on 02/19, wound VAC became blocked and had to be removed. Wound was repacked on 02/22 by surgery final decision on the treatment of her wound is a rate limiting step to prevent her from pursuing therapy as she is unable to perform most physical outpatient therapy due to restrictions in movement of her trunk due to her large open wound healing by secondary intent (2) A-fib: PAF x 24 hours this admission - resolved. Remains in normal sinus rhythm Recent echo with preserved EF and normal valvular function. She had no symptoms when she was in a.fib. Suspect that the stress of illness caused PAF. She had poor rate control despite oral BB and 2 doses of IV digoxin when she had it. CHADS-VASC score is at least a 6. Anticoagulation should be considered - especially in light of her recent TIA. 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 (3) Transient ischemic attack: 02/11/19. Slurred speech with questionable facial droop. Now resolved MRI neg for acute stroke. CTA head/neck w/o stenosis or other findings. Echo w/o source of thrombus. Seen by Dr Hartmann - neurology - Advised to continue asa 81mg daily while hospitalized then resume plavix for secondary prevention at d/c. In light of PAF and high CHADs-VASC score systemic anticoagulation would ultimately be recommended. HAS BLED score suggest at least 4.1% risk of major bleeding per year NO TIA events since 02/11/19. (4) Anemia: Probably chronic as well as acute. Acute component secondary to acute blood loss from intra-abdominal hematomas (proven today when the infected hematoma spontaneously drained). Her hemoglobin has been staying in the 8 g range we will continue to cautiously watch this s/p 2 units PRBCs earlier this admission. s/p 1 unit PRBCs on 02/17/19. s/p 2 units PRBC 02/19 B12/folate normal. Iron studies c/w ACD. Trans sat < 20 % --- cont ferrous sulfate 325mg BID. (5) ARF (acute renal failure): resolved, lisinopril has been restarted peak Cr 1.49 (6) Metabolic encephalopathy: 2nd to infectious process in abdomen. resolved. (7) Hyperlipidemia: hold home atorvastatin due to IV daptomycin use (8) Depression: cont fluoxetine as patient's health is improved her spirits are also improve the bili will stay with her stable fluoxetine dose (9) Asthma: no exacerbation (10) HTN (hypertension): Discontinued amlodipine, Continue metoprolol and lisinopril she is in good control of her blood pressure at this time, however she may need her amlodipine when she returns to home (11) GERD (gastroesophageal reflux disease): continue PPI (12) Candidiasis of mouth and esophagus: nystatin 5cc qid x 7 days resolved (13) Hypothyroidism: most recent TSH wnl cont synthroid (14) Obstructive sleep apnea, adult: continue HS CPAP (15) Chronic kidney disease, stage 3a: stable Cr once again today baseline CrCl <60 (16) DVT prophylaxis: SCDs chemical means deferred due to intra-abdominal hematoma(s) Subjective Patient has no new complaints or problems daughter is at the bedside she does want to increase her bowel regimen and increase her dietary consistency which we will do protein intake to continue to encourage wound healing. Review of Systems Review of Systems: ROS: well nourished well developed. No double vision blurry vision No problems with speech or swallowing No palpitations, chest pain or pressure No Wheezing or breathing issues Continues with minor abdominal pain however her wound VAC has been working overnight. She complains of having some difficulty moving her bowels with hard stools No burning urine Marie catheter is in place No focal joint pain or muscle pain No skin rashes or oral lesions No unusual bruising or bleeding No focused back pain or numbness but overall she feels weak and No changes in memory or confusion Physical Exam Physical Exam: The patient appeared chronically ill and slightly pale Vital signs as documented. Head exam is unremarkable. normocephalic, atraumatic Neck is without jugular venous distension, thyromegaly, or lymphademopathy Lungs are clear to auscultation and percussion. Cardiac exam reveals Rhythm is regular. First and second heart sounds normal. Abdominal exam reveals normal bowel sounds, wound VAC is in place there is no redness around the wound satellite wound approximately 1 or 2 o'clock position to the main wound which is slightly reddened wound care will follow and replace her sponge on 02/26 Neurologic exam is A&Ox3, no focal deficits, strength is equal bilateral Psychologically seems neither anxious or depressed Skin is warm Dry without bruises or lesions Results & Data Vital Signs (Past 12 Hours) Vital Signs Temp Pulse Pulse Resp BP Pulse Ox 02/24/19 15:06 36.5 C 62 17 147/67 H 96 02/24/19 07:18 36.3 C L 61 15 170/79 H 98 PG Care Time/CCT Total # of Minutes Spent Total Time Spent with Patient: Total time spent is greater than 50% in coordination of care (as documented) at patient's floor/unit and/or counseling patient: (1) A-fib Atrial fibrillation type: unspecified Qualified Code(s): I48.91 - Unspecified atrial fibrillation (2) Anemia Anemia type: unspecified type Qualified Code(s): D64.9 - Anemia, unspecified (3) ARF (acute renal failure) Acute renal failure type: unspecified Qualified Code(s): N17.9 - Acute kidney failure, unspecified (4) Hyperlipidemia Hyperlipidemia type: mixed hyperlipidemia Qualified Code(s): E78.2 - Mixed hyperlipidemia (5) Depression Depression Type: other depression Qualified Code(s): F32.89 - Other specified depressive episodes (6) Asthma Asthma severity: unspecified severity Asthma persistence: unspecified Asthma complication type: uncomplicated Qualified Code(s): J45.909 - Unspecified asthma, uncomplicated (7) HTN (hypertension) Hypertension type: essential hypertension Qualified Code(s): I10 - Essential (primary) hypertension (8) GERD (gastroesophageal reflux disease) Esophagitis presence: esophagitis presence not specified Qualified Code(s): K21.9 - Gastro-esophageal reflux disease without esophagitis (9) Hypothyroidism Hypothyroidism type: acquired Qualified Code(s): E03.9 - Hypothyroidism, unspecified
[2019-02-24] MEDS: FLUOXETINE HCL 20 MG CAP PO SCH (20:57)
[2019-02-25] MEDS: LEVOTHYROXINE SODIUM 25 MCG TABLET PO SCH (05:39)
[2019-02-25] MEDS: PIPERACILLIN/TAZOBACTAM 3.375 GM in DEXTROSE 5% 100 ML IV SCH ×3 (08:59→23:32)
[2019-02-25] MEDS: METOPROLOL SUCC 50MG EXT REL TAB PO SCH (08:59)
[2019-02-25] MEDS: MAGNESIUM OXIDE 400 MG TAB PO SCH ×2 (09:00→20:46)
[2019-02-25] MEDS: PANTOprazole 40 MG TAB PO SCH (09:00)
[2019-02-25] MEDS: CALCIUM CARBONATE 1250MG TAB PO SCH ×2 (09:00→20:46)
[2019-02-25] MEDS: FLUOXETINE HCL 10 MG CAP PO SCH (09:00)
[2019-02-25] MEDS: LACTOBACILLUS ACIDOPHILUS (FLORANEX) TAB PO SCH ×3 (09:00→17:56)
[2019-02-25] MEDS: ASPIRIN 81 MG ECTAB PO SCH (09:00)
[2019-02-25] MEDS: FERROUS SULFATE 325 MG TAB PO SCH ×2 (09:00→17:56)
[2019-02-25] MEDS: MULTIVITAMIN TAB PO SCH (09:00)
[2019-02-25] MEDS: LISINOPRIL 20 MG TAB PO SCH (09:00)
[2019-02-25] MEDS: SENNA 8.6 MG TAB PO SCH (09:01)
[2019-02-25] MEDS: POTASSIUM CHLORIDE 10 MEQ TABCR PO SCH ×2 (09:01→20:46)
[2019-02-25] MEDS: CHOLECALCIFEROL 1,000 UNITS TAB PO SCH (09:01)
[2019-02-25] MEDS: FLUTICASONE/VILANTEROL INHALER INH SCH (09:02)
--- NOTE | 2019-02-25 09:38 | Surgery Progress Note ---
Date of Service February 25, 2019 Assessment & Plan (1) Abscess of abdominal wall: POD # 7 I&D abdominal wall abscess wound vac down in AM or Tuesday eating well alert and sitting in chair Present on Admission?: Yes Subjective doing well no complaints eating well Review of Systems Constitutional: no fever and no chills Respiratory: no dyspnea Cardiovascular: no chest pain Gastrointestinal: no abdominal pain, no nausea and no vomiting Integumentary: skin around wound vac looks good Physical Exam Constitutional: well developed and well nourished Respiratory: normal respiratory effort Auscultation: lungs clear to auscultation bilaterally Cardiovascular: Rate/Rhythm: regular rate and regular rhythm Gastrointestinal (Abdomen): Inspection/Auscultation: normal bowel sounds Percussion/Palpation: abdomen soft; abdomen nontender wound vac in place; serous drainage Results & Data Vital Signs (Past 12 Hours) Vital Signs Temp Pulse Pulse Resp BP BP Pulse Ox 02/25/19 07:18 36.4 C L 62 16 151/58 H 97 02/24/19 23:27 37.1 C 63 18 170/73 H 97 02/24/19 22:23 61 18 96
--- NOTE | 2019-02-25 12:07 | Hospitalist Progress Note ---
Date of Service February 25, 2019 Assessment & Plan (1) Abdominal wall fluid collections: Fluid collection initially felt to be a hematoma. Drainage was not pursued at time of admission. Fistula also felt to be present. Shortly after, however, there was growing concern for an infected seroma/hematoma. Patient eventually had spontaneous eruption of fistulous tract to the skin which required urgent incision and drainage on 02/18 eventually growing E. coli She has been on IV antibiotics this entire admission except for <[address] scan on 02/10/19 showed modest improvement in size of collections. Then, CT scan on 02/16/19 actually showed mild worsening/enlargement. Remains on zosyn with infectious disease oversight, cultures show pansensitive e coli Dr Pablo took patient to OR 02/18/19 for clean-out of this collection. Wound VAC to attempt to heal her large open wound healing by secondary intent (2) A-fib: PAF x 24 hours this admission - resolved. Remains in normal sinus rhythm Recent echo with preserved EF and normal valvular function. She had no symptoms when she was in a.fib. Suspect that the stress of illness caused PAF. CHADS-VASC score is at least a 6. 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 (3) Transient ischemic attack: 02/11/19. Slurred speech with questionable facial droop. Now resolved MRI neg for acute stroke. CTA head/neck w/o stenosis or other findings. Echo w/o source of thrombus. Seen by Dr Hartmann - neurology - Advised to continue asa 81mg daily while hospitalized then resume plavix for secondary prevention at d/c. In light of PAF and high CHADs-VASC score systemic anticoagulation would be considered but a clinical decision would be finally rendered especially the fact that she remains in normal sinus rhythm NO TIA events since 02/11/19. (4) Anemia: Probably chronic as well as acute. Acute component secondary to acute blood loss from intra-abdominal hematomas (proven today when the infected hematoma spontaneously drained). Her hemoglobin has been staying in the 8 g range s/p 2 units PRBCs earlier this admission. s/p 1 unit PRBCs on 02/17/19. s/p 2 units PRBC 02/19 B12/folate normal. Iron studies c/w ACD. Trans sat < 20 % --- cont ferrous sulfate 325mg BID. (5) ARF (acute renal failure): resolved, lisinopril has been restarted peak Cr 1.49 (6) Metabolic encephalopathy: 2nd to infectious process in abdomen. resolved. (7) Hyperlipidemia: hold home atorvastatin due to IV daptomycin use (8) Depression: cont fluoxetine as patient's health is improved her spirits are also improve the bili will stay with her stable fluoxetine dose (9) Asthma: no exacerbation (10) HTN (hypertension): Discontinued amlodipine, Continue metoprolol and lisinopril she is in good control of her blood pressure at this time, however she may need her amlodipine when she returns to home (11) GERD (gastroesophageal reflux disease): continue PPI (12) Candidiasis of mouth and esophagus: nystatin 5cc qid x 7 days resolved (13) Hypothyroidism: most recent TSH wnl cont synthroid (14) Obstructive sleep apnea, adult: continue HS CPAP (15) Chronic kidney disease, stage 3a: stable Cr once again today baseline CrCl <60 (16) DVT prophylaxis: SCDs chemical means deferred due to intra-abdominal hematoma(s) Subjective this pt is improving, has no current issues, is tolerant of diet change from 02/24 and has increased appetite Review of Systems Review of Systems: ROS: Still fatigued and tired No double vision blurry vision No problems with speech or swallowing No palpitations, chest pain or pressure No Wheezing or breathing issues No abdominal pain, wound VAC in place, no nausea vomiting constipation is resolved with senna No burning urine no complaints with Marie catheter No focal joint pain or muscle pain Skin is without discomfort surrounding the wound VAC No unusual bruising or bleeding No focused back pain or numbness or loss of strength No changes in memory or confusion Physical Exam Physical Exam: The patient appeared still slightly pale and weak Vital signs as documented. Head exam is unremarkable. normocephalic, atraumatic Neck is without jugular venous distension, thyromegaly, or lymphademopathy Lungs are clear to auscultation still with basilar rales that are improving with incentive spirometry Cardiac exam reveals Rhythm is regular. First and second heart sounds normal. Abdominal exam reveals no erythema or induration surrounding the edges of the wound wound VAC is placed centrally there is some discoloration to the inferior margin of the wound is not erythema or indurated., She continues to have normal bowel sounds Extremities are nonedematous and both pedal pulses are present Neurologic exam is A&Ox3, no focal deficits, strength is equal bilateral she is weak Psychologically seems neither anxious or depressed Skin is warm Dry other than the abdomen Results & Data Vital Signs (Past 12 Hours) Vital Signs Temp Pulse Resp BP Pulse Ox 02/25/19 07:18 36.4 C L 62 16 151/58 H 97 PG Care Time/CCT Total # of Minutes Spent Total Time Spent with Patient: Total time spent is greater than 50% in coordination of care (as documented) at patient's floor/unit and/or counseling patient: (1) A-fib Atrial fibrillation type: unspecified Qualified Code(s): I48.91 - Unspecified atrial fibrillation (2) Anemia Anemia type: unspecified type Qualified Code(s): D64.9 - Anemia, unspecified (3) ARF (acute renal failure) Acute renal failure type: unspecified Qualified Code(s): N17.9 - Acute kidney failure, unspecified (4) Hyperlipidemia Hyperlipidemia type: mixed hyperlipidemia Qualified Code(s): E78.2 - Mixed hyperlipidemia (5) Depression Depression Type: other depression Qualified Code(s): F32.89 - Other specified depressive episodes (6) Asthma Asthma severity: unspecified severity Asthma persistence: unspecified Asthma complication type: uncomplicated Qualified Code(s): J45.909 - Unspecified asthma, uncomplicated (7) HTN (hypertension) Hypertension type: essential hypertension Qualified Code(s): I10 - Essential (primary) hypertension (8) GERD (gastroesophageal reflux disease) Esophagitis presence: esophagitis presence not specified Qualified Code(s): K21.9 - Gastro-esophageal reflux disease without esophagitis (9) Hypothyroidism Hypothyroidism type: acquired Qualified Code(s): E03.9 - Hypothyroidism, unspecified
[2019-02-25] MEDS: FLUOXETINE HCL 20 MG CAP PO SCH (20:47)
[2019-02-26] MEDS: LEVOTHYROXINE SODIUM 25 MCG TABLET PO SCH (05:46)
[2019-02-26 06:26] LABS: Hematocrit (blood only) 22.8 % (37-47); Hemoglobin 7.4 g/dL (12.0-16.0); Mean Corpuscular Hgb Conc 32.5 g/dL (32-36); Mean Corpuscular Volume 87.7 fL (80-100); Mean Platelet Volume 7.5 fL (7.4-10.4); Platelet Count 265 K/uL (130-400); RDW Coefficient of Variation 16.4 % (11.5-14.5); RDW Standard Deviation 52.6 fL (36.4-46.3); White Blood Count 10.59 K/uL (4.8-10.8)
--- NOTE | 2019-02-26 06:28 | Progress Note ---
Date of Service February 26, 2019 Assessment & Plan (1) Abscess of abdominal wall: wound vac removed during night because of alarm packed with gauze. min pain- no meds taken on IV atbx] wound care team managing wound needs significant rehab Subjective see a/p Results & Data Vital Signs (Past 12 Hours) Vital Signs Temp Pulse Pulse Resp BP Pulse Ox 02/25/19 23:40 37.2 C 72 18 159/67 H 94 02/25/19 22:11 70 18 95
[2019-02-26 06:58] LABS: BUN Creatinine Ratio 19.8 (10-20); Calcium 8.5 mg/dl (8.5-10.1); Creatinine Clr Calc Pharmacy 40.9 ml/min; Est GFR (Non-African American) 55.3
[2019-02-26] MEDS: POTASSIUM CHLORIDE 10 MEQ TABCR PO SCH ×2 (08:46→20:41)
[2019-02-26] MEDS: METOPROLOL SUCC 50MG EXT REL TAB PO SCH (08:46)
[2019-02-26] MEDS: PIPERACILLIN/TAZOBACTAM 3.375 GM in DEXTROSE 5% 100 ML IV SCH ×2 (08:46→16:45)
[2019-02-26] MEDS: LACTOBACILLUS ACIDOPHILUS (FLORANEX) TAB PO SCH ×3 (08:46→17:35)
[2019-02-26] MEDS: MULTIVITAMIN TAB PO SCH (08:46)
[2019-02-26] MEDS: ASPIRIN 81 MG ECTAB PO SCH (08:47)
[2019-02-26] MEDS: CHOLECALCIFEROL 1,000 UNITS TAB PO SCH (08:47)
[2019-02-26] MEDS: LISINOPRIL 20 MG TAB PO SCH (08:47)
[2019-02-26] MEDS: CALCIUM CARBONATE 1250MG TAB PO SCH ×2 (08:47→20:42)
[2019-02-26] MEDS: FERROUS SULFATE 325 MG TAB PO SCH ×2 (08:47→17:35)
[2019-02-26] MEDS: FLUOXETINE HCL 10 MG CAP PO SCH (08:47)
[2019-02-26] MEDS: MAGNESIUM OXIDE 400 MG TAB PO SCH ×2 (08:47→20:42)
[2019-02-26] MEDS: FLUTICASONE/VILANTEROL INHALER INH SCH (08:48)
[2019-02-26] MEDS: SENNA 8.6 MG TAB PO SCH (08:48)
[2019-02-26] MEDS: PANTOprazole 40 MG TAB PO SCH (08:48)
--- NOTE | 2019-02-26 14:33 | Infectious Disease Progress Nt ---
Date of Service February 26, 2019 Assessment & Plan (1) Abscess of abdominal wall: Patient with large abdominal abscess status post drainage with cultures growing E. coli, now with large abdominal wound . Would continue Zosyn for now, consider transition to oral Augmentin when taking better p.o. Will follow. Subjective Patient seen in follow-up for abdominal abscess. Patient feeling better, pain better controlled. No fever. No other new specific complaints. Review of Systems Review of Systems: All systems reviewed & are unremarkable except as noted in HPI & below Physical Exam Constitutional: WD/WN, vitals as above comfortable; no acute distress Eyes: PERRL, conjunctivae normal, anicteric sclerae ENMT: external ear and nose normal, oropharynx normal Neck: trachea midline, no thyromegaly normal visual inspection; neck nontender Respiratory: normal respiratory effort, lungs clear to auscultation normal percussion; no respiratory distress Cardiovascular: RRR, no murmur, no edema Rate/Rhythm: regular rate and regular rhythm Heart Sounds: normal S1 and normal S2; no gallop, no murmur and no cardiac rub Gastrointestinal (Abdomen): normal bowel sounds, soft, nontender, no hepatosplenomegaly Inspection/Auscultation: + abdomen distended and normal bowel sounds Percussion/Palpation: + abdomen tender; no hepatosplenomegaly and no abdominal mass Musculoskeletal: no cyanosis or clubbing, extremities motor strength 5/5 Head/Neck/Chest: normocephalic, head atraumatic and neck supple Extremities: strength 5/5 throughout Skin: no rashes, warm and dry normal turgor Neurologic: moves all extremities and awake; no focal motor deficits Speech / Cognition: normal speech Motor/Sensory: no sensory deficit Psychiatric: A+Ox3, euthymic affect Lymphatic: no cervical or axillary lymphadenopathy no inguinal lymphadenopathy Results & Data Vital Signs (Past 12 Hours) Vital Signs Temp Pulse Resp BP Pulse Ox 02/26/19 07:07 36.9 C 70 18 146/67 H 95 Laboratory Results Short CBC 02/26/19 Range/Units 06:12 WBC 10.59 (4.8-10.8) K/uL Hgb 7.4 L (12.0-16.0) g/dL Hct 22.8 L (37-47) % Plt Count 265 (130-400) K/uL [facility] 02/26/19 06:12 Sodium 137 Potassium 4.0 Chloride 103 Carbon Dioxide 28 BUN 18 Creatinine 0.93 Glucose 88 Calcium 8.5 Diagnostic Findings Microbiology 02/18/19 10:37 Abdomen Gram Stain - Final 02/18/19 10:37 Abdomen Aerobic and Anaerobic Culture - Final Escherichia coli Bacteroides uniformis 02/18/19 Unknown Abdomen Gram Stain - Final 02/18/19 Unknown Abdomen Wound Culture - Final Escherichia coli 02/06/19 15:05 Blood Aerobic Blood Culture - Final No growth in Aerobic bottle after 5 days. 02/06/19 15:05 Blood Anaerobic Blood Culture - Final No growth in Anaerobic bottle after 5 days. 02/06/19 15:05 Blood Aerobic Blood Culture - Final No growth in Aerobic bottle after 5 days. 02/06/19 15:05 Blood Anaerobic Blood Culture - Final No growth in Anaerobic bottle after 5 days. 02/06/19 19:50 Urine,Clean Catch Urine Culture - Final More than three types of organisms present, all high counts mixed probable skin tierney - No further identifications or sensitivities to follow.
[2019-02-26] MEDS: FLUOXETINE HCL 20 MG CAP PO SCH (20:42)
[2019-02-26] MEDS ORDERED: SODIUM CHLORIDE 0.9% 250 ML IV PRN (21:54)
--- NOTE | 2019-02-26 21:55 | Hospitalist Progress Note ---
Date of Service February 26, 2019 Assessment & Plan (1) Traumatic hematoma of abdominal wall with infection: s/p incision & drainage by Dr Pablo on February 18 following spontaneous rupture of the large intra-abdominal fluid collection. suspected that she had developed a large intra-abdominal hematoma s/p fall with subsequent development of infection. there has been some concern about a fistulous tract to the colon. cultures grew pansensitive e. coli and bacteroides. remains on zosyn. remains on wound vac. defer management of latter to wound care team. Dr Pablo pleased with progress. Present on Admission?: Yes (2) Abdominal wall fluid collections: Fluid collection initially felt to be a hematoma with no concern for abscess. Drainage was not pursued at time of admission. Fistula also felt to be present. Shortly after, however, there was growing concern for an infected seroma/hematoma and thus IV antibiotics were started. She had been on IV antibiotics this entire admission except for <[address] scan on 02/10/19 showed modest improvement in size of collections. Then, CT scan on 02/16/19 actually showed mild worsening/enlargement. On February 18 she had spontaneous rupture of the collection via the skin exuding copious purulent and bloody fluid. Then went to the OR the same day with Dr Pablo for I/D and washout. Recovering nicely since that time with use of ongoing IV abx and wound vac. Present on Admission?: Yes (3) A-fib: PAF x 24 hours earlier this admission - resolved and has not recurred. Echo this admission with preserved EF and normal valvular function. She had no symptoms when she was in a.fib. Suspect that the stress of illness caused catecholamine surge leading to PAF. She had poor rate control despite oral BB and 2 doses of IV digoxin when she had it. CHADS-VASC score is at least a 6. Anticoagulation should be considered - especially in light of her recent TIA - but was NOT started due to the abdominal fluid collection issue and hematoma. 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 Continue to remain off anticoagulation for now. (4) Transient ischemic attack: 02/11/19. Slurred speech with questionable facial droop. MRI neg for acute stroke. CTA head/neck w/o stenosis or other findings. Echo w/o source of thrombus. Seen by Dr Hartmann - neurology - Advised to continue asa 81mg daily while hospitalized then resume plavix for secondary prevention at d/c. Reconsulted PT, OT, and speech therapy. In light of PAF and high CHADs-VASC score systemic anticoagulation would ultimately be recommended. See above in "a.fib." Poor candidate for anticoagulation however. NO TIA events since 02/11/19. (5) Anemia: Probably chronic as well as acute. Acute component secondary to acute blood loss from intra-abdominal hematomas. s/p 5 units PRBCs in total this admission. B12/folate normal. Iron studies c/w ACD. Trans sat < 20 % --- cont ferrous sulfate 325mg BID. Hb today 7.4. Stool heme negative. suspect blood loss from abdomen. repeat H/H in am. if any lower then Tx 1 unit PRBCs. (6) ARF (acute renal failure): resolved (7) Metabolic encephalopathy: 2nd to infectious process in abdomen. resolved. has not recurred. (8) Hyperlipidemia: can resume statin agent (9) Depression: cont fluoxetine no issues (10) Asthma: no exacerbation (11) HTN (hypertension): Discontinued amlodipine, lisinopril and HCTZ due to low-normal BPs earlier this stay. Then lisinopril resumed as BP climbed. Continue beta david. (12) GERD (gastroesophageal reflux disease): continue PPI (13) Candidiasis of mouth and esophagus: resolved (14) Hypothyroidism: most recent TSH wnl cont synthroid (15) Obstructive sleep apnea, adult: continue HS CPAP (16) Chronic kidney disease, stage 3a: stable Creatinines over the last week (17) DVT prophylaxis: SCDs chemical means deferred due to intra-abdominal hematoma(s) and ongoing H/H drops daughter updated at bedside today care d/w Dr Pablo dispo planning - needs rehab post-discharge Subjective patient feeling quite good with better energy and improved appetite. denies any abd pain. starting to ambulate better. no fever. no confusion. family pleased w/ progress. events of this weekend reviewed including issues with woundvac. Review of Systems Constitutional: no fever, no chills, no fatigue and no anorexia Respiratory: no dyspnea Cardiovascular: + edema; no chest pain and no orthopnea Gastrointestinal: no abdominal pain, no bloating, no nausea and no vomiting Physical Exam Constitutional: no acute distress and no altered mental status ENMT: external ear and nose normal, oropharynx normal Respiratory: normal respiratory effort, lungs clear to auscultation Auscultation: no crackles and no wheezes Cardiovascular: Rate/Rhythm: regular rate and regular rhythm Heart Sounds: normal S1 and normal S2; no murmur Vessels: posterior tibial pulses present and dorsalis pedis pulses present; no JVD Extremities: + edema (1+ b/l) Gastrointestinal (Abdomen): normal bowel sounds, soft, nontender, no hepatosplenomegaly Skin: wound vac in place central abdomen; no erythema of abdominal wall; multiple surgical scars present Psychiatric: A+Ox3, euthymic affect Results & Data Vital Signs (Past 12 Hours) Vital Signs Temp Pulse Resp BP Pulse Ox 02/26/19 15:36 36.8 C 69 18 115/73 94 Laboratory Results Laboratory Results - last 24 hr 02/26/19 02/26/19 02/26/19 06:12 06:12 20:25 WBC 10.59 RBC 2.60 L Hgb 7.4 L Hct 22.8 L MCV 87.7 MCH 28.5 MCHC 32.5 RDW Std Deviation 52.6 H RDW Coeff of Elliot 16.4 H Plt Count 265 MPV 7.5 Sodium 137 Potassium 4.0 Chloride 103 Carbon Dioxide 28 Anion Gap 6.0 BUN 18 Creatinine 0.93 Est Cr Clr Drug Dosing 40.9 Est GFR ( Amer) 64.0 Est GFR (Non-Af Amer) 55.3 BUN/Creatinine Ratio 19.8 Glucose 88 Calcium 8.5 Stool Occult Bld Scrn Negative PG Care Time/CCT Total # of Minutes Spent Total Time Spent with Patient: Total time spent is greater than 50% in coordination of care (as documented) at patient's floor/unit and/or counseling patient: (1) ARF (acute renal failure) Acute renal failure type: unspecified Qualified Code(s): N17.9 - Acute kidney failure, unspecified (2) Anemia Anemia type: unspecified type Qualified Code(s): D64.9 - Anemia, unspecified (3) A-fib Atrial fibrillation type: unspecified Qualified Code(s): I48.91 - Unspecified atrial fibrillation (4) Depression Depression Type: other depression Qualified Code(s): F32.89 - Other specified depressive episodes (5) Hyperlipidemia Hyperlipidemia type: mixed hyperlipidemia Qualified Code(s): E78.2 - Mixed hyperlipidemia (6) Hypothyroidism Hypothyroidism type: acquired Qualified Code(s): E03.9 - Hypothyroidism, unspecified (7) GERD (gastroesophageal reflux disease) Esophagitis presence: esophagitis presence not specified Qualified Code(s): K21.9 - Gastro-esophageal reflux disease without esophagitis (8) HTN (hypertension) Hypertension type: essential hypertension Qualified Code(s): I10 - Essential (primary) hypertension (9) Asthma Asthma complication type: uncomplicated Asthma persistence: unspecified Asthma severity: unspecified severity Qualified Code(s): J45.909 - Unspecified asthma, uncomplicated (10) Traumatic hematoma of abdominal wall with infection Encounter type: subsequent encounter Qualified Code(s): S30.1XXD - Contusion of abdominal wall, subsequent encounter; L08.9 - Local infection of the skin and subcutaneous tissue, unspecified
[2019-02-27] MEDS: PIPERACILLIN/TAZOBACTAM 3.375 GM in DEXTROSE 5% 100 ML IV SCH ×3 (00:05→17:33)
[2019-02-27] MEDS: LEVOTHYROXINE SODIUM 25 MCG TABLET PO SCH (05:52)
[2019-02-27 07:02] LABS: Hematocrit (blood only) 20.2 % (37-47); Hemoglobin 6.6 g/dL (12.0-16.0)
[2019-02-27 07:23] LABS: BUN Creatinine Ratio 21.8 (10-20); Calcium 8.7 mg/dl (8.5-10.1); Creatinine Clr Calc Pharmacy 37.7 ml/min; Potassium 4.1 mmol/L (3.5-5.1)
[2019-02-27] MEDS ORDERED: SODIUM CHLORIDE 0.9% 250 ML IV PRN (07:30)
[2019-02-27] MEDS: MULTIVITAMIN TAB PO SCH (07:52)
[2019-02-27] MEDS: MAGNESIUM OXIDE 400 MG TAB PO SCH ×2 (07:52→21:21)
[2019-02-27] MEDS: POTASSIUM CHLORIDE 10 MEQ TABCR PO SCH ×2 (07:52→21:21)
[2019-02-27] MEDS: SENNA 8.6 MG TAB PO SCH (07:53)
[2019-02-27] MEDS: FLUOXETINE HCL 10 MG CAP PO SCH (07:53)
[2019-02-27] MEDS: CHOLECALCIFEROL 1,000 UNITS TAB PO SCH (07:53)
[2019-02-27] MEDS: LACTOBACILLUS ACIDOPHILUS (FLORANEX) TAB PO SCH ×3 (07:53→16:51)
[2019-02-27] MEDS: LISINOPRIL 20 MG TAB PO SCH (07:54)
[2019-02-27] MEDS: CALCIUM CARBONATE 1250MG TAB PO SCH ×2 (07:54→21:21)
[2019-02-27] MEDS: FERROUS SULFATE 325 MG TAB PO SCH ×2 (07:55→16:51)
[2019-02-27] MEDS: FLUTICASONE/VILANTEROL INHALER INH SCH (07:56)
--- NOTE | 2019-02-27 08:03 | Progress Note ---
Date of Service February 27, 2019 Assessment & Plan (1) Abscess of abdominal wall: wound looks excellent- significant improvement over 1week nupur and granulating- no cellulitis in skin evident Hct has dropped since 02/19- last transfusion drainage serous , light pink- likely some loss min active bleeding with vac chg- do not feel surgery will improve this- would worsen blood loss could stop ASA- doubt this is option Results & Data Vital Signs (Past 12 Hours) Vital Signs Temp Pulse Pulse Resp BP BP Pulse Ox 02/27/19 06:49 36.4 C L 65 16 124/72 97 02/27/19 00:14 37.1 C 68 18 133/76 95 02/26/19 22:22 75 16 96
[2019-02-27] MEDS: METOPROLOL SUCC 50MG EXT REL TAB PO SCH (09:34)
[2019-02-27] MEDS: PANTOprazole 40 MG TAB PO SCH (09:34)
--- NOTE | 2019-02-27 12:01 | Hospitalist Progress Note ---
Date of Service February 27, 2019 Assessment & Plan (1) A-fib: PAF x 24 hours earlier this admission - resolved spontaneously. Unfortunately converted back to rapid a.fib this am in setting of severe anemia. Still w/o symptoms from the a.fib. Echo this admission with preserved EF and normal valvular function. Earlier this stay she had poor rate control despite oral BB and 2 doses of IV digoxin when she had it. CHADS-VASC score is at least a 6. Anticoagulation should be considered - especially in light of her recent TIA - but was NOT started due to the abdominal fluid collection issue, anemia, and hematoma. 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 Continue to remain off anticoagulation for now. Plan for recurrent PAF - * transfer to tele * cardizem infusion - start 5mg/hr * continue beta david * transfuse 2 units PRBCs for severe anemia which will make the a.fib worse * cardiology consultation -- consideration of anti-arrhythmic? (2) Anemia: Hemoglobin has dropped nearly 2 points in the last 48 hours. etiology? stool HEME NEGATIVE. output from wound vac is only mildly pink and no todd blood. elected to obtain CT abd/pelvis today to r/o retroperitoneal bleeding, etc -- NEGATIVE for such. B12/folate normal earlier this stay. Iron studies c/w ACD. Trans sat < 20 % --- cont ferrous sulfate 325mg BID. will transfuse 2 units PRBCs. repeat CBC in am. seeing that stool is heme negative and CT negative for retroperitoneal bleeding will also check hemolysis labs with retic, LDH, etc. HOLD aspirin for now. (3) Traumatic hematoma of abdominal wall with infection: s/p incision & drainage by Dr Pablo on February 18 following spontaneous rupture of the large intra-abdominal fluid collection. suspected that she had developed a large intra-abdominal hematoma s/p fall with subsequent development of infection. there has been some concern about a fistulous tract to the colon. cultures grew pansensitive e. coli and bacteroides. remains on zosyn. remains on wound vac. defer management of latter to wound care team. Dr Pablo pleased with progress. can likely transition zosyn to augmentin at any time. CT of abd/pelvis today shows RESOLUTION of intra-abdominal fluid collection. (4) Abdominal wall fluid collections: Fluid collection initially felt to be a hematoma with no concern for abscess. Drainage was not pursued at time of admission. Fistula also felt to be present. Shortly after, however, there was growing concern for an infected seroma/hematoma and thus IV antibiotics were started. She had been on IV antibiotics this entire admission except for <[address] scan on 02/10/19 showed modest improvement in size of collections. Then, CT scan on 02/16/19 actually showed mild worsening/enlargement. On February 18 she had spontaneous rupture of the collection via the skin exuding copious purulent and bloody fluid. Then went to the OR the same day with Dr Pablo for I/D and washout. Recovering nicely since that time with use of ongoing IV abx and wound vac. CT abd/pelvis today with significantly improved collection. (5) Transient ischemic attack: 02/11/19. Slurred speech with questionable facial droop. MRI neg for acute stroke. CTA head/neck w/o stenosis or other findings. Echo w/o source of thrombus. Seen by Dr Hartmann - neurology - Advised to continue asa 81mg daily while hospitalized then resume plavix for secondary prevention at d/c. Reconsulted PT, OT, and speech therapy. In light of PAF and high CHADs-VASC score systemic anticoagulation would ultimately be recommended. See above in "a.fib." Poor candidate for anticoagulation however. NO TIA events since 02/11/19. Aspirin temporarily on hold until etiology of anemia is found. Resume earliest time it is deemed safe. (6) ARF (acute renal failure): resolved (7) Metabolic encephalopathy: 2nd to infectious process in abdomen. resolved. has not recurred. (8) Hyperlipidemia: lipitor (9) Depression: cont fluoxetine no issues (10) Asthma: no exacerbation (11) HTN (hypertension): Discontinued amlodipine, lisinopril and HCTZ due to low-normal BPs earlier this stay. Then lisinopril resumed as BP climbed. Continue beta david. BPs acceptable today. (12) GERD (gastroesophageal reflux disease): continue PPI (13) Candidiasis of mouth and esophagus: resolved (14) Hypothyroidism: most recent TSH wnl cont synthroid (15) Obstructive sleep apnea, adult: continue HS CPAP (16) Chronic kidney disease, stage 3a: stable Creatinine again today (17) DVT prophylaxis: SCDs chemical means deferred due to intra-abdominal hematoma(s) and ongoing H/H drops daughter, son in law, all updated at bedside today care d/w Dr Pablo this am dispo planning - needs rehab post-discharge - [facility]? other? transferred to tele this am due to rapid a.fib Subjective called by nursing staff this AM that patient's pulse was noted to be in the 120s and irregular. EKG obtained - a.fib with RVR. patient converted to a.fib while receiving 1/2 units of PRBCs. upon my arrival patient was laying in bed comfortably. she said "I feel like I always do." denied any palpitations, chest pain or dyspnea. denied any abdominal pain. most of the drainage from abdominal wound has been light pink but no todd blood. no GI bleeding, melena, etc. family at bedside. Review of Systems Constitutional: + fatigue; no fever, no chills and no anorexia Respiratory: no cough and no dyspnea Cardiovascular: no chest pain Gastrointestinal: no abdominal pain, no nausea and no vomiting Physical Exam Constitutional: no acute distress and no altered mental status ENMT: external ear and nose normal, oropharynx normal Respiratory: normal respiratory effort, lungs clear to auscultation Auscultation: no crackles and no wheezes Cardiovascular: Rate/Rhythm: + tachycardic and + irregularly irregular Heart Sounds: normal S1 and normal S2; no murmur Vessels: posterior tibial pulses present and dorsalis pedis pulses present; no JVD Extremities: + edema (1+ b/l) Gastrointestinal (Abdomen): normal bowel sounds, soft, nontender, no hepatosplenomegaly wound vac in place in central abdomen Skin: numerous scars over abdominal wall. negative abel-felix's sign b/l. no abdominal wall ecchymoses or cellulitis. Psychiatric: A+Ox3, euthymic affect Results & Data Vital Signs (Past 12 Hours) Vital Signs Temp Pulse Pulse Resp BP BP BP 02/27/19 10:32 36.5 C 124 H 16 115/71 02/27/19 10:10 119 H 17 126/86 02/27/19 10:07 36.4 C L 110 H 16 118/55 L 02/27/19 09:32 36.5 C 67 17 145/77 H 02/27/19 09:02 36.6 C 67 16 126/68 02/27/19 08:47 36.5 C 67 18 133/69 02/27/19 08:31 36.7 C 65 18 141/64 H 02/27/19 06:49 36.4 C L 65 16 124/72 02/27/19 00:14 37.1 C 68 18 133/76 Pulse Ox 02/27/19 10:32 97 02/27/19 10:10 95 02/27/19 10:07 95 02/27/19 09:32 96 02/27/19 09:02 96 02/27/19 08:47 96 02/27/19 08:31 02/27/19 06:49 97 02/27/19 00:14 95 Laboratory Results Laboratory Results - last 24 hr 02/26/19 02/27/19 02/27/19 20:25 06:31 06:31 Hgb Hct Sodium 140 Potassium 4.1 Chloride 106 Carbon Dioxide 29 Anion Gap 5.0 BUN 22 H Creatinine 1.01 Est Cr Clr Drug Dosing 37.7 Est GFR ( Amer) 58.0 Est GFR (Non-Af Amer) 50.0 BUN/Creatinine Ratio 21.8 H Glucose 80 Calcium 8.7 Stool Occult Bld Scrn Negative Blood Type O Positive Antibody Screen NEGATIVE Crossmatch See Detail 02/27/19 06:31 Hgb 6.6 L* Hct 20.2 L* Sodium Potassium Chloride Carbon Dioxide Anion Gap BUN Creatinine Est Cr Clr Drug Dosing Est GFR ( Amer) Est GFR (Non-Af Amer) BUN/Creatinine Ratio Glucose Calcium Stool Occult Bld Scrn Blood Type Antibody Screen Crossmatch PG Care Time/CCT Total # of Minutes Spent Total Time Spent with Patient: Total time spent is greater than 50% in coordination of care (as documented) at patient's floor/unit and/or counseling patient: (1) Traumatic hematoma of abdominal wall with infection Encounter type: subsequent encounter Qualified Code(s): S30.1XXD - Contusion of abdominal wall, subsequent encounter; L08.9 - Local infection of the skin and subcutaneous tissue, unspecified (2) ARF (acute renal failure) Acute renal failure type: unspecified Qualified Code(s): N17.9 - Acute kidney failure, unspecified (3) Anemia Anemia type: unspecified type Qualified Code(s): D64.9 - Anemia, unspecified (4) A-fib Atrial fibrillation type: unspecified Qualified Code(s): I48.91 - Unspecified atrial fibrillation (5) Depression Depression Type: other depression Qualified Code(s): F32.89 - Other specified depressive episodes (6) Hyperlipidemia Hyperlipidemia type: mixed hyperlipidemia Qualified Code(s): E78.2 - Mixed hyperlipidemia (7) Hypothyroidism Hypothyroidism type: acquired Qualified Code(s): E03.9 - Hypothyroidism, unspecified (8) GERD (gastroesophageal reflux disease) Esophagitis presence: esophagitis presence not specified Qualified Code(s): K21.9 - Gastro-esophageal reflux disease without esophagitis (9) HTN (hypertension) Hypertension type: essential hypertension Qualified Code(s): I10 - Essential (primary) hypertension (10) Asthma Asthma complication type: uncomplicated Asthma persistence: unspecified Asthma severity: unspecified severity Qualified Code(s): J45.909 - Unspecified asthma, uncomplicated
[2019-02-27] MEDS ORDERED: dilTIAZem HCl 125 MG in DEXTROSE 5% 100 ML IV SCH (12:56)
--- NOTE | 2019-02-27 15:30 | Infectious Disease Progress Nt ---
Date of Service February 27, 2019 Assessment & Plan (1) Abscess of abdominal wall: Patient with large abdominal abscess status post drainage with cultures growing E. coli, now with large abdominal wound . Would continue Zosyn for now, consider transition to oral Augmentin when taking better p.o. Will follow. Subjective Patient seen in follow-up for abdominal abscess. Patient feeling better, pain better controlled. No fever. No other new specific complaints. Review of Systems Review of Systems: All systems reviewed & are unremarkable except as noted in HPI & below Physical Exam Constitutional: WD/WN, vitals as above comfortable; no acute distress Eyes: PERRL, conjunctivae normal, anicteric sclerae ENMT: external ear and nose normal, oropharynx normal Neck: trachea midline, no thyromegaly normal visual inspection; neck nontender Respiratory: normal respiratory effort, lungs clear to auscultation normal percussion; no respiratory distress Cardiovascular: RRR, no murmur, no edema Rate/Rhythm: regular rate and regular rhythm Heart Sounds: normal S1 and normal S2; no gallop, no murmur and no cardiac rub Gastrointestinal (Abdomen): normal bowel sounds, soft, nontender, no hepatosplenomegaly Inspection/Auscultation: + abdomen distended and normal bowel sounds Percussion/Palpation: + abdomen tender; no hepatosplenomegaly and no abdominal mass Musculoskeletal: no cyanosis or clubbing, extremities motor strength 5/5 Head/Neck/Chest: normocephalic, head atraumatic and neck supple Extremities: strength 5/5 throughout Skin: no rashes, warm and dry normal turgor Neurologic: moves all extremities and awake; no focal motor deficits Speech / Cognition: normal speech Motor/Sensory: no sensory deficit Psychiatric: A+Ox3, euthymic affect Lymphatic: no cervical or axillary lymphadenopathy no inguinal lymphadenopathy Results & Data Vital Signs (Past 12 Hours) Vital Signs Temp Pulse Pulse Resp BP BP Pulse Ox 02/27/19 14:22 36.6 C 108 H 20 116/78 94 02/27/19 13:52 36.6 C 112 H 20 126/83 97 02/27/19 13:37 36.6 C 102 H 20 129/82 94 02/27/19 13:32 36.6 C 116 H 20 124/79 94 02/27/19 13:20 36.6 C 112 H 20 130/87 96 02/27/19 12:43 36.6 C 126 H 20 145/83 H 96 02/27/19 10:32 36.5 C 124 H 16 115/71 97 02/27/19 10:10 119 H 17 126/86 95 02/27/19 10:07 36.4 C L 110 H 16 118/55 L 95 02/27/19 09:32 36.5 C 67 17 145/77 H 96 02/27/19 09:02 36.6 C 67 16 126/68 96 02/27/19 08:47 36.5 C 67 18 133/69 96 02/27/19 08:31 36.7 C 65 18 141/64 H 02/27/19 06:49 36.4 C L 65 16 124/72 97 Laboratory Results Short CBC 02/27/19 Range/Units 06:31 Hgb 6.6 L* (12.0-16.0) g/dL Hct 20.2 L* (37-47) % BMP 02/27/19 06:31 Sodium 140 Potassium 4.1 Chloride 106 Carbon Dioxide 29 BUN 22 H Creatinine 1.01 Glucose 80 Calcium 8.7 Diagnostic Findings Microbiology 02/18/19 10:37 Abdomen Gram Stain - Final 02/18/19 10:37 Abdomen Aerobic and Anaerobic Culture - Final Escherichia coli Bacteroides uniformis 02/18/19 Unknown Abdomen Gram Stain - Final 02/18/19 Unknown Abdomen Wound Culture - Final Escherichia coli 02/06/19 15:05 Blood Aerobic Blood Culture - Final No growth in Aerobic bottle after 5 days. 02/06/19 15:05 Blood Anaerobic Blood Culture - Final No growth in Anaerobic bottle after 5 days. 02/06/19 15:05 Blood Aerobic Blood Culture - Final No growth in Aerobic bottle after 5 days. 02/06/19 15:05 Blood Anaerobic Blood Culture - Final No growth in Anaerobic bottle after 5 days. 02/06/19 19:50 Urine,Clean Catch Urine Culture - Final More than three types of organisms present, all high counts mixed probable skin tierney - No further identifications or sensitivities to follow.
--- NOTE | 2019-02-27 15:33 | CT Scan Report ---
CT OF THE ABDOMEN AND PELVIS WITHOUT CONTRAST CLINICAL HISTORY: anemic; recent I/D hematoma; retroperitonealbleed? COMPARISON STUDY: CT of the abdomen and pelvis February 16, 2019. TECHNIQUE: Axial images of the abdomen and pelvis were obtained without IV contrast. Images were revi ewed in the axial, sagittal, and coronal planes. Automated exposure control was utilized for the tram dy. A dose lowering technique was utilized adhering to the principles of ALARA. FINDINGS: Imaged portions of the lower chest demonstrate moderate cardiomegaly with development of a small pericardial effusion. There are small bilateral pleural effusions. There may be mild interstiti al pulmonary edema. No pneumatosis, free air or portal venous gas is present. Unenhanced images of th e liver, spleen, adrenal glands and pancreas are unremarkable. Several left renal cysts are better de picted on prior contrast enhanced exam. A 1.8 cm calculus within the upper pole of the right kidney i s noted with scarring. There is no hydronephrosis. There is colonic diverticulosis without evidence f or acute diverticulitis. No retroperitoneal hematoma is identified. A inferior sacral fracture is aga in noted. The anterior abdominal wall fluid collection has been evacuated. There is an open wound. Ga s containing tract which extends from the wound toward the peritoneal cavity abuts the transverse col on. This appears unchanged. No significant residual fluid collection is noted. There is a suspected p revious ventral hernia mesh. IMPRESSION: 1. No retroperitoneal hematoma. 2. Expected findings following evacuation of the anterior abdominal wall fluid collection with open w ound. No residual fluid collection. No change in a gas-filled tract which extends from the wound towa rd the transverse colon. An underlying fistula cannot be excluded. 3. Interval development of a small pericardial effusion. Small bilateral pleural effusions. Electronically signed by: Guilherme Martinez M.D. 02/27/2019 3:31 PM
--- NOTE | 2019-02-27 16:03 | Cardiology Consultation ---
Date of Consultation February 27, 2019 Assessment & Plan (1) A-fib: Patient appears to have paroxysmal atrial fibrillation. It is unclear whether she has been having atrial fibrillation prior to admission or whether these are the 1st episodes of atrial fibrillation. She is not symptomatic and certainly could have had atrial fibrillation in the past that was paroxysmal and resolved quickly. She is currently asymptomatic. Hemodynamically she is quite stable. Her ventricular rates are slightly high despite her usual regimen metoprolol tartrate 100 milligrams daily. She was started on some diltiazem which she has had some benefit but not entirely resolved her high rates. Judging by her vital signs it seems that she did start this episode of atrial fibrillation within the last 24 hours, probably sometime this morning. I think would be reasonable to place her on some amiodarone currently in the hopes that we can facilitate cardioversion and perhaps maintained sinus rhythm at least during her hospitalization. Going forward if she continues to have episodes of atrial fibrillation we could consider adoption of a rate control strategy although this may be complicated by some resting bradycardia when she is not in atrial fibrillation. Ideally she would be on systemic anticoagulation for prevention of recurrent stroke. However, it is quite clear at this time that that is not appropriate. It is unclear whether she will be an appropriate candidate for systemic anticoagulation at any point moving forward. Provided she can take anti- platelet agents there is the option of left atrial appendage occlusion. However, we will simply monitor her clinical course currently and make some of these decisions once she has left the hospital. I would continue her daily metoprolol. I will start her on an amiodarone infusion. We will titrate her diltiazem as required. Present on Admission?: No History of Present Illness Reason for Consultation: Atrial fibrillation Requesting Physician: Walker Attending Physician: Trevor Cardoso History of Present Illness The patient is an 88-year-old woman with a history of nonobstructive coronary disease and cerebral vascular disease who sustained a fall several weeks ago. Initially she was not felt to have suffered any significant trauma but over the course of several weeks she did develop some changes in her abdomen including development of what turned out to be a large hematoma. Patient presented to the hospital for an enlarging hematoma which eventually ruptured. This hematoma was also felt to be infected and the patient underwent operative evacuation with antonio cement of a wound VAC. The fall which resulted in this injury was mechanical in nature. The patient did not report any dizziness or lightheadedness leading up to the event. She did not have any loss of consciousness in this case the fall resulted from instability of her knee. She has had multiple falls over the years occasionally resulting in significant injury. According to the patient and her daughter who was present for today's interview none of these refer involved an element of syncope or passing out. During her admission the patient was noted to have an irregular heartbeat and the 15 of February she was noted to have atrial fibrillation. She had some associated high ventricular rates but eventually converted back to sinus rhythm without intervention. This morning the patient was also noted to be in atrial fibrillation with higher ventricular rates. She was transferred to the telemetry unit for additional monitoring. Patient has been unaware of any palpitations. She cannot sense any irregularity in her heartbeat. She denies any symptoms of chest discomfort. She states that her breathing is at baseline. She denies significant discomfort associated with her abdominal wound VAC. She was up in a chair recently and did some ambulation with occupational and physical therapy yesterday. She denies dizziness or lightheadedness. She has an element of weakness and fatigue. Allergies Allergy/AdvReac Type Severity Reaction Status Date / Time oxycodone Allergy Mild RASH Verified 02/06/19 11:01 alendronate sodium Allergy Unknown [facility] LIST Verified 02/06/19 11:01 Bactrim Allergy Unknown [facility] 02/07/18 04:16 cefuroxime Allergy Unknown UNKNOWN ON Verified 02/06/19 11:01 LIST Cipro Allergy Unknown Unknown Verified 02/07/18 21:42 ciprofloxacin Allergy Unknown UNKNOWN ON Verified 02/06/19 11:01 LIST codeine Allergy Unknown UNKNOWN ON Verified 02/06/19 11:01 LIST gabapentin Allergy Unknown UNKNOWN ON Verified 02/06/19 11:01 LIST meperidine Allergy Unknown UNKNOWN ON Verified 02/06/19 11:01 LIST propoxyphene Allergy Unknown UNKNOWN ON Verified 02/06/19 11:01 LIST Sulfa (Sulfonamide Allergy Unknown UNKNOWN ON Verified 02/06/19 11:01 Antibiotics) LIST sulfamethoxazole Allergy Unknown [facility] LIST Verified 02/06/19 11:01 trimethoprim Allergy Unknown [facility] Verified 02/06/19 11:01 amphetamine AdvReac Severe UNKNOWN ON Verified 02/06/19 11:01 LIST dextroamphetamine AdvReac Severe UNKNOWN ON Verified 02/06/19 11:01 LIST hydrochlorothiazide AdvReac Intermediate GI DISTRESS Verified 02/06/19 11:01 methyldopa AdvReac Intermediate GI DISTRESS Verified 02/06/19 11:01 Home Medications Home Medications Medication Instructions Recorded Confirmed Type Lactobacillus acidophilus 100 mg PO DAILY 12/26/18 02/06/19 History [Acidophilus] albuterol sulfate [Ventolin HFA] 1 - 2 puff INHALATION Q4 PRN 12/26/18 02/06/19 History amlodipine 10 mg PO DAILY 12/26/18 02/06/19 History atorvastatin 20 mg PO DAILY 12/26/18 02/06/19 History calcium carbonate 300 mg PO BID 12/26/18 02/06/19 History cholecalciferol (vitamin D3) 2,000 unit PO DAILY 12/26/18 02/06/19 History [Vitamin D3] fluoxetine 10 mg PO QAM 12/26/18 02/06/19 History fluoxetine 20 mg PO QPM 12/26/18 02/06/19 History fluticasone furoate-vilanterol 1 inh INHALATION DAILY 12/26/18 02/06/19 History [Breo Ellipta] metoprolol succinate 100 mg PO DAILY 12/26/18 02/06/19 History multivitamin 1 tab PO DAILY 12/26/18 02/06/19 History omega 4-[id number]-fish oil [Fish Oil] 1 cap PO DAILY 12/26/18 02/06/19 History potassium chloride 10 meq PO DAILY 12/26/18 02/06/19 History triamterene-hydrochlorothiazid 1 tab PO DAILY 12/26/18 02/06/19 History clopidogrel 75 mg tablet 75 mg PO DAILY #90 tab 01/23/19 02/06/19 Rx lisinopril 40 mg tablet 40 mg PO DAILY #90 tab 01/23/19 02/06/19 Rx omeprazole 20 mg tablet,delayed 20 mg PO DAILY #90 tab 01/23/19 02/06/19 Rx release levothyroxine 25 mcg PO DAILY 02/06/19 02/06/19 History Patient History Medical History A-fib (Acute) Abscess of abdominal wall Chronic kidney disease, stage 3a Metabolic encephalopathy Tremor Abdomen enlarged Vertigo (Acute) Transient ischemic attack (Acute) Obstructive sleep apnea, adult (Acute) Hypothyroidism (Acute) Hyperlipidemia (Acute) Depression (Chronic) Chronic cerebral ischemia (Acute) Chronic asthmatic bronchitis (Acute) CAD (coronary artery disease) (Acute) Asthma HTN (hypertension) Surgical History S/P cholecystectomy S/P hernia repair S/P hysterectomy Family History Mother , age 86 of an MT. She also had COPD. Myocardial infarction COPD (chronic obstructive pulmonary disease) Father , age 47 of an MT. 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 Feels Safe at Home: Yes Smoking Status: Never smoker Hx Alcohol Use: No Hx Substance Use: No Review of Systems Review of Systems: All systems reviewed & are unremarkable except as noted in HPI & below Physical Exam Physical Exam: She is alert and oriented x3. Mood affect appear normal. She answered all questions appropriately. HEENT: Sclerae are anicteric. Pupils are equal and reactive to light and accommodation. Extraocular movements were intact. Neuro: Cranial nerves intact Neck: Examination of the submandibular region did not reveal any significant lymphadenopathy. Carotids are palpable bilaterally and free of bruits on auscultation. There was no evidence of jugular venous distention. The thyroid was not enlarged. Lungs: Lungs are clear to auscultation bilaterally. There are no rales wheezes or rhonchi. She has normal respiratory effort without use of accessory muscles. There is normal pulmonary excursion. Cardiac: The rhythm was irregular. S1 and S2 were normal. There are no murmurs on examination. The PMI was not markedly displaced on palpation. Abdomen: Wound VAC was in place. Extremities: Patient has bilateral radial pulses that are equal in intensity. There is no evidence cyanosis or clubbing. Sequential compression devices were in place bilaterally Skin: There are no rashes noted on examination today. Results & Data Vital Signs (Past 12 Hours) Vital Signs Temp Pulse Pulse Resp BP BP Pulse Ox 02/27/19 15:22 36.6 C 111 H 20 112/82 94 02/27/19 14:22 36.6 C 108 H 20 116/78 94 02/27/19 13:52 36.6 C 112 H 20 126/83 97 02/27/19 13:37 36.6 C 102 H 20 129/82 94 02/27/19 13:32 36.6 C 116 H 20 124/79 94 02/27/19 13:20 36.6 C 112 H 20 130/87 96 02/27/19 12:43 36.6 C 126 H 20 145/83 H 96 02/27/19 10:32 36.5 C 124 H 16 115/71 97 02/27/19 10:10 119 H 17 126/86 95 02/27/19 10:07 36.4 C L 110 H 16 118/55 L 95 02/27/19 09:32 36.5 C 67 17 145/77 H 96 02/27/19 09:02 36.6 C 67 16 126/68 96 02/27/19 08:47 36.5 C 67 18 133/69 96 02/27/19 08:31 36.7 C 65 18 141/64 H 02/27/19 06:49 36.4 C L 65 16 124/72 97 Laboratory Results Abnormal Lab Results 02/26/19 02/27/19 02/27/19 20:25 06:31 06:31 Hgb Hct Sodium 140 Potassium 4.1 Chloride 106 Carbon Dioxide 29 Anion Gap 5.0 BUN 22 H Creatinine 1.01 Est Cr Clr Drug Dosing 37.7 Est GFR ( Amer) 58.0 Est GFR (Non-Af Amer) 50.0 BUN/Creatinine Ratio 21.8 H Glucose 80 Calcium 8.7 Stool Occult Bld Scrn Negative Blood Type O Positive Antibody Screen NEGATIVE Crossmatch See Detail 02/27/19 06:31 Hgb 6.6 L* Hct 20.2 L* Sodium Potassium Chloride Carbon Dioxide Anion Gap BUN Creatinine Est Cr Clr Drug Dosing Est GFR ( Amer) Est GFR (Non-Af Amer) BUN/Creatinine Ratio Glucose Calcium Stool Occult Bld Scrn Blood Type Antibody Screen Crossmatch Diagnostic Findings Echocardiogram performed on 02/15/2019 revealed preserved LV systolic function. She mild aortic regurgitation. CT scan of the abdomen performed today did not reveal any evidence of retroperitoneal hematoma. Possible abdominal colonic fistula. Small pericar dial effusion. ECG Additional Comments: Atrial fibrillation with rapid ventricular rate. Nonspecific ST and T-wave changes (1) A-fib Atrial fibrillation type: unspecified Qualified Code(s): I48.91 - Unspecified atrial fibrillation
[2019-02-27] MEDS ORDERED: AMIODARONE IV BOLUS / DRIP IV STA (16:08)
[2019-02-27] MEDS ORDERED: AMIODARONE / D5W 150 MG/100 ML BAG IV STA (16:08)
[2019-02-27] MEDS ORDERED: AMIODARONE / D5W 360 MG/200 ML BAG IV SCH (16:15)
[2019-02-27] MEDS: AMIODARONE / D5W 360 MG/200 ML BAG IV SCH (21:40)
[2019-02-27] MEDS: FLUOXETINE HCL 20 MG CAP PO SCH (21:40)
[2019-02-28] MEDS: PIPERACILLIN/TAZOBACTAM 3.375 GM in DEXTROSE 5% 100 ML IV SCH ×2 (00:16→08:25)
[2019-02-28] MEDS: LEVOTHYROXINE SODIUM 25 MCG TABLET PO SCH (06:12)
[2019-02-28 06:24] LABS: Hematocrit (blood only) 27.8 % (37-47); Hemoglobin 9.1 g/dL (12.0-16.0); Mean Corpuscular Hgb Conc 32.7 g/dL (32-36); Mean Corpuscular Volume 86.3 fL (80-100); Mean Platelet Volume 8.2 fL (7.4-10.4); Platelet Count 250 K/uL (130-400); RDW Coefficient of Variation 16.1 % (11.5-14.5); RDW Standard Deviation 50.8 fL (36.4-46.3); Red Blood Count 3.22 M/uL (4.2-5.4); Reticulocyte % 3.4 % (0.5-2.0); Reticulocytes # 0.11 10^6/uL (0.02-0.10); White Blood Count 12.62 K/uL (4.8-10.8)
[2019-02-28 06:51] LABS: BUN Creatinine Ratio 21.4 (10-20); Calcium 8.9 mg/dl (8.5-10.1); Creatinine Clr Calc Pharmacy 37.3 ml/min; Est GFR (African American) 57.3; Est GFR (Non-African American) 49.4; Magnesium 2.2 mg/dl (1.8-2.4); Potassium 4.1 mmol/L (3.5-5.1)
[2019-02-28] MEDS: LACTOBACILLUS ACIDOPHILUS (FLORANEX) TAB PO SCH ×3 (08:22→16:52)
[2019-02-28] MEDS: ATORVASTATIN 20 MG TAB PO SCH (08:22)
[2019-02-28] MEDS: MAGNESIUM OXIDE 400 MG TAB PO SCH ×2 (08:22→21:07)
[2019-02-28] MEDS: FLUOXETINE HCL 10 MG CAP PO SCH (08:23)
[2019-02-28] MEDS: PANTOprazole 40 MG TAB PO SCH (08:23)
[2019-02-28] MEDS: MULTIVITAMIN TAB PO SCH (08:23)
[2019-02-28] MEDS: CALCIUM CARBONATE 1250MG TAB PO SCH ×2 (08:23→21:08)
[2019-02-28] MEDS: CHOLECALCIFEROL 1,000 UNITS TAB PO SCH (08:23)
[2019-02-28] MEDS: FERROUS SULFATE 325 MG TAB PO SCH ×2 (08:23→16:52)
[2019-02-28] MEDS: METOPROLOL SUCC 50MG EXT REL TAB PO SCH (08:23)
[2019-02-28] MEDS: POTASSIUM CHLORIDE 10 MEQ TABCR PO SCH ×2 (08:23→21:09)
[2019-02-28] MEDS: SENNA 8.6 MG TAB PO SCH (08:23)
[2019-02-28] MEDS: AMIODARONE / D5W 360 MG/200 ML BAG IV SCH (08:37)
[2019-02-28] MEDS: AMOXICILLIN/CLAVULANATE 875 MG TAB PO SCH (16:52)
[2019-02-28] MEDS ORDERED: AMIODARONE 200 MG TAB PO ONE (17:53)
--- NOTE | 2019-02-28 20:17 | Infectious Disease Progress Nt ---
Date of Service February 28, 2019 Assessment & Plan (1) Abscess of abdominal wall: Patient with large abdominal abscess status post drainage with cultures growing E. coli, now with large abdominal wound . Would continue Zosyn for now, consider transition to oral Augmentin when taking better p.o. Will follow. Subjective Patient seen in follow-up for abdominal abscess. Appears more comfortable, offers no new specific complaints. Remains afebrile. Continues to tolerate antibiotic without apparent difficulty. Review of Systems Review of Systems: All systems reviewed & are unremarkable except as noted in HPI & below Physical Exam Constitutional: WD/WN, vitals as above comfortable; no acute distress Eyes: PERRL, conjunctivae normal, anicteric sclerae ENMT: external ear and nose normal, oropharynx normal Neck: trachea midline, no thyromegaly normal visual inspection; neck nontender Respiratory: normal respiratory effort, lungs clear to auscultation normal percussion; no respiratory distress Cardiovascular: RRR, no murmur, no edema Rate/Rhythm: regular rate and regular rhythm Heart Sounds: normal S1 and normal S2; no gallop, no murmur and no cardiac rub Gastrointestinal (Abdomen): normal bowel sounds, soft, nontender, no hepatosplenomegaly Inspection/Auscultation: + abdomen distended and normal bowel sounds Percussion/Palpation: + abdomen tender; no hepatosplenomegaly and no abdominal mass Musculoskeletal: no cyanosis or clubbing, extremities motor strength 5/5 Head/Neck/Chest: normocephalic, head atraumatic and neck supple Extremities: strength 5/5 throughout Skin: no rashes, warm and dry normal turgor Neurologic: moves all extremities and awake; no focal motor deficits Speech / Cognition: normal speech Motor/Sensory: no sensory deficit Psychiatric: A+Ox3, euthymic affect Lymphatic: no cervical or axillary lymphadenopathy no inguinal lymphadenopathy Results & Data Vital Signs (Past 12 Hours) Vital Signs Temp Pulse Pulse Pulse Resp BP BP 02/28/19 19:41 36.4 C L 61 16 168/67 H 02/28/19 15:59 59 L 02/28/19 15:34 36.7 C 58 L 20 148/82 H 02/28/19 10:58 36.3 C L 56 L 20 155/67 H Pulse Ox 02/28/19 19:41 96 02/28/19 15:59 02/28/19 15:34 95 02/28/19 10:58 96 Laboratory Results Short CBC 02/28/19 Range/Units 05:57 WBC 12.62 H (4.8-10.8) K/uL Hgb 9.1 L (12.0-16.0) g/dL Hct 27.8 L (37-47) % Plt Count 250 (130-400) K/uL BMP 02/28/19 05:57 Sodium 137 Potassium 4.1 Chloride 104 Carbon Dioxide 30 BUN 22 H Creatinine 1.02 Glucose 88 Calcium 8.9 Diagnostic Findings Microbiology 02/18/19 10:37 Abdomen Gram Stain - Final 02/18/19 10:37 Abdomen Aerobic and Anaerobic Culture - Final Escherichia coli Bacteroides uniformis 02/18/19 Unknown Abdomen Gram Stain - Final 02/18/19 Unknown Abdomen Wound Culture - Final Escherichia coli 02/06/19 15:05 Blood Aerobic Blood Culture - Final No growth in Aerobic bottle after 5 days. 02/06/19 15:05 Blood Anaerobic Blood Culture - Final No growth in Anaerobic bottle after 5 days. 02/06/19 15:05 Blood Aerobic Blood Culture - Final No growth in Aerobic bottle after 5 days. 02/06/19 15:05 Blood Anaerobic Blood Culture - Final No growth in Anaerobic bottle after 5 days. 02/06/19 19:50 Urine,Clean Catch Urine Culture - Final More than three types of organisms present, all high counts mixed probable skin tierney - No further identifications or sensitivities to follow.
--- NOTE | 2019-02-28 21:01 | Hospitalist Progress Note ---
Date of Service February 28, 2019 Assessment & Plan (1) A-fib: PAF x 2 episodes this admission. First episode 2 weeks ago self-resolved. Yesterday's episode resolved after about 8 hours. Echo this admission with preserved EF and normal valvular function. Earlier this stay she had poor rate control despite oral BB and 2 doses of IV digoxin when she had it. CHADS-VASC score is at least a 6. Anticoagulation should be considered - especially in light of her recent TIA - but was NOT started due to the abdominal fluid collection issue, anemia, and hematoma. 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 Continue to remain off anticoagulation for now. Seen by Dr Venegas yesterday - amiodarone drip started to try and maintain NSR. Seen by Dr Horner today - discussed her care with him. Can stop amio drip; convert to po amiodarone 200mg once daily and would continue this on discharge. Continue tele status to observe for recurrent PAF. (2) Anemia: Likely multifactorial - blood draws, blood loss from abd wound (earlier this stay), etc. stool HEME NEGATIVE. CT abd/pelvis 02/27 WITHOUT retroperitoneal bleeding or other area of bleeding. Hemolysis labs today negative. s/p 2 units PRBCs on 02/27 with stable H/H today. Will get fecal occult blood one more time and if negative again we can safely say NO GI bleeding. B12/folate normal earlier this stay. Iron studies c/w ACD. Trans sat < 20 % --- cont ferrous sulfate 325mg BID. If H/H stable tomorrow then resume asa. (3) Traumatic hematoma of abdominal wall with infection: s/p incision & drainage by Dr Pablo on February 18 following spontaneous rupture of the large intra-abdominal fluid collection. suspected that she had developed a large intra-abdominal hematoma s/p fall with subsequent development of infection. there has been some concern about a fistulous tract to the colon. cultures grew pansensitive e. coli and bacteroides. Has been on zosyn most of this stay. remains on wound vac. defer management of latter to wound care team. Dr Pablo pleased with progress. can likely transition zosyn to augmentin today as recommended by Dr Espinosa (she is eating very well at this time). CT of abd/pelvis 02/27 showed RESOLUTION of intra-abdominal fluid collection. (4) Abdominal wall fluid collections: Fluid collection initially felt to be a hematoma with no concern for abscess. Drainage was not pursued at time of admission. Fistula also felt to be present. Shortly after, however, there was growing concern for an infected seroma/hematoma and thus IV antibiotics were started. She had been on IV antibiotics this entire admission except for <[address] scan on 02/10/19 showed modest improvement in size of collections. Then, CT scan on 02/16/19 actually showed mild worsening/enlargement. On February 18 she had spontaneous rupture of the collection via the skin exuding copious purulent and bloody fluid. Then went to the OR the same day with Dr Pablo for I/D and washout. Recovering nicely since that time with use of ongoing IV abx and wound vac. Transition to oral augmentin per ID recs. Cont wound vac. (5) Transient ischemic attack: 02/11/19. Slurred speech with questionable facial droop. MRI neg for acute stroke. CTA head/neck w/o stenosis or other findings. Echo w/o source of thrombus. Seen by Dr Hartmann - neurology - Advised to continue asa 81mg daily while hospitalized then resume plavix for secondary prevention at d/c. Reconsulted PT, OT, and speech therapy. In light of PAF and high CHADs-VASC score systemic anticoagulation would ultimately be recommended. See above in "a.fib." Poor candidate for anticoagulation however. NO TIA events since 02/11/19. Aspirin temporarily on hold until stability of H/H is proven. (6) ARF (acute renal failure): resolved (7) Metabolic encephalopathy: 2nd to infectious process in abdomen. resolved. has not recurred. (8) Hyperlipidemia: lipitor (9) Depression: cont fluoxetine no issues (10) Asthma: no exacerbation (11) HTN (hypertension): Discontinued amlodipine, lisinopril and HCTZ due to low-normal BPs earlier this stay. Then lisinopril resumed as BP climbed. Continue beta david. BPs acceptable. (12) GERD (gastroesophageal reflux disease): continue PPI (13) Candidiasis of mouth and esophagus: resolved (14) Hypothyroidism: most recent TSH wnl cont synthroid (15) Obstructive sleep apnea, adult: continue HS CPAP (16) Chronic kidney disease, stage 3a: stable creatinine today once again (17) DVT prophylaxis: SCDs chemical means deferred due to intra-abdominal hematoma(s) and recurrent H/H drops daughter updated at bedside today patient may be ready for d/c to [facility] tomorrow on 03/01 Subjective good night last pm. slept well. converted from a.fib to NSR at 1715 yesterday evening. NSR since then. no cp, dyspnea, cough, or abd pain. eating very well. better energy today. Review of Systems Constitutional: no fever, no chills and no anorexia Respiratory: no dyspnea and no dyspnea on exertion Cardiovascular: no chest pain, no orthopnea and no edema Gastrointestinal: no abdominal pain, no nausea, no vomiting and no diarrhea/loose stools Physical Exam Constitutional: well developed and well nourished; no acute distress and no altered mental status ENMT: external ear and nose normal, oropharynx normal Respiratory: normal respiratory effort, lungs clear to auscultation Auscultation: no crackles and no wheezes Cardiovascular: Rate/Rhythm: regular rate and regular rhythm Heart Sounds: normal S1 and normal S2; no murmur Vessels: posterior tibial pulses present and dorsalis pedis pulses present; no JVD Extremities: no edema Gastrointestinal (Abdomen): normal bowel sounds, soft, nontender, no hepatosplenomegaly wound vac in central abdomen; fluid is light pink; no abd wall cellulitis or erythema; numerous scars present Psychiatric: A+Ox3, euthymic affect Results & Data Vital Signs (Past 12 Hours) Vital Signs Temp Pulse Pulse Pulse Resp BP BP 02/28/19 19:41 36.4 C L 61 16 168/67 H 02/28/19 15:59 59 L 02/28/19 15:34 36.7 C 58 L 20 148/82 H 02/28/19 10:58 36.3 C L 56 L 20 155/67 H Pulse Ox 02/28/19 19:41 96 02/28/19 15:59 02/28/19 15:34 95 02/28/19 10:58 96 Laboratory Results Laboratory Results - last 24 hr 02/27/19 02/28/19 02/28/19 06:31 05:57 05:57 WBC 12.62 H RBC 3.22 L Hgb 9.1 L Hct 27.8 L MCV 86.3 MCH 28.3 MCHC 32.7 RDW Std Deviation 50.8 H RDW Coeff of Elliot 16.1 H Plt Count 250 MPV 8.2 Reticulocyte % (Auto) 3.4 H Reticulocyte # 0.11 H Sodium 137 Potassium 4.1 Chloride 104 Carbon Dioxide 30 Anion Gap 3.0 BUN 22 H Creatinine 1.02 Est Cr Clr Drug Dosing 37.3 Est GFR ( Amer) 57.3 Est GFR (Non-Af Amer) 49.4 BUN/Creatinine Ratio 21.4 H Glucose 88 Calcium 8.9 Magnesium 2.2 Lactate Dehydrogenase Crossmatch See Detail 02/28/19 05:57 WBC RBC Hgb Hct MCV MCH MCHC RDW Std Deviation RDW Coeff of Elliot Plt Count MPV Reticulocyte % (Auto) Reticulocyte # Sodium Potassium Chloride Carbon Dioxide Anion Gap BUN Creatinine Est Cr Clr Drug Dosing Est GFR ( Amer) Est GFR (Non-Af Amer) BUN/Creatinine Ratio Glucose Calcium Magnesium Lactate Dehydrogenase 184 Crossmatch PG Care Time/CCT Total # of Minutes Spent Total Time Spent with Patient: Total time spent is greater than 50% in coordin ation of care (as documented) at patient's floor/unit and/or counseling patient: (1) Traumatic hematoma of abdominal wall with infection Encounter type: subsequent encounter Qualified Code(s): S30.1XXD - Contusion of abdominal wall, subsequent encounter; L08.9 - Local infection of the skin and subcutaneous tissue, unspecified (2) ARF (acute renal failure) Acute renal failure type: unspecified Qualified Code(s): N17.9 - Acute kidney failure, unspecified (3) Anemia Anemia type: unspecified type Qualified Code(s): D64.9 - Anemia, unspecified (4) A-fib Atrial fibrillation type: unspecified Qualified Code(s): I48.91 - Unspecified atrial fibrillation (5) Depression Depression Type: other depression Qualified Code(s): F32.89 - Other specified depressive episodes (6) Hyperlipidemia Hyperlipidemia type: mixed hyperlipidemia Qualified Code(s): E78.2 - Mixed hyperlipidemia (7) Hypothyroidism Hypothyroidism type: acquired Qualified Code(s): E03.9 - Hypothyroidism, unspecified (8) GERD (gastroesophageal reflux disease) Esophagitis presence: esophagitis presence not specified Qualified Code(s): K21.9 - Gastro-esophageal reflux disease without esophagitis (9) HTN (hypertension) Hypertension type: essential hypertension Qualified Code(s): I10 - Essential (primary) hypertension (10) Asthma Asthma complication type: uncomplicated Asthma persistence: unspecified Asthma severity: unspecified severity Qualified Code(s): J45.909 - Unspecified asthma, uncomplicated
[2019-02-28] MEDS: FLUOXETINE HCL 20 MG CAP PO SCH (21:08)
--- NOTE | 2019-03-01 06:18 | Progress Note ---
Date of Service March 01, 2019 Assessment & Plan (1) Abscess of abdominal wall: pt resting with CPAP in place- vitals stable wound vac seems to be functioning well irrigating system in place- less blood tinged drainage- could fluctuate with granulating wound. Pt very week- some incontinence of bowel yest , but did walk 25' +. Subjective see a/p Results & Data Vital Signs (Past 12 Hours) Vital Signs Temp Pulse Pulse Pulse Pulse Resp BP 03/01/19 02:26 36.5 C 62 20 159/79 H 02/28/19 23:32 36.5 C 61 18 152/60 H 02/28/19 21:46 61 21 02/28/19 19:41 36.4 C L 61 16 168/67 H Pulse Ox 03/01/19 02:26 94 02/28/19 23:32 90 02/28/19 21:46 94 02/28/19 19:41 96
[2019-03-01] MEDS: LEVOTHYROXINE SODIUM 25 MCG TABLET PO SCH (06:23)
[2019-03-01 06:28] LABS: Hematocrit (blood only) 27.1 % (37-47); Hemoglobin 8.8 g/dL (12.0-16.0); Mean Corpuscular Hgb Conc 32.5 g/dL (32-36); Mean Platelet Volume 8.1 fL (7.4-10.4); Platelet Count 269 K/uL (130-400); RDW Standard Deviation 51.9 fL (36.4-46.3); Red Blood Count 3.08 M/uL (4.2-5.4)
[2019-03-01 07:18] LABS: BUN Creatinine Ratio 29.2 (10-20); Calcium 8.5 mg/dl (8.5-10.1); Creatinine Clr Calc Pharmacy 51.3 ml/min; Est GFR (African American) 84.4; Est GFR (Non-African American) 72.8; Potassium 3.9 mmol/L (3.5-5.1)
[2019-03-01] MEDS: CHOLECALCIFEROL 1,000 UNITS TAB PO SCH (07:54)
[2019-03-01] MEDS: MULTIVITAMIN TAB PO SCH (07:54)
[2019-03-01] MEDS: CALCIUM CARBONATE 1250MG TAB PO SCH ×2 (07:54→20:23)
[2019-03-01] MEDS: PANTOprazole 40 MG TAB PO SCH (07:54)
[2019-03-01] MEDS: LACTOBACILLUS ACIDOPHILUS (FLORANEX) TAB PO SCH ×3 (07:54→16:37)
[2019-03-01] MEDS: AMIODARONE 200 MG TAB PO SCH (07:55)
[2019-03-01] MEDS: POTASSIUM CHLORIDE 10 MEQ TABCR PO SCH ×2 (07:55→20:22)
[2019-03-01] MEDS: MAGNESIUM OXIDE 400 MG TAB PO SCH ×2 (07:55→20:22)
[2019-03-01] MEDS: ATORVASTATIN 20 MG TAB PO SCH (07:55)
[2019-03-01] MEDS: FLUOXETINE HCL 10 MG CAP PO SCH (07:55)
[2019-03-01] MEDS: SENNA 8.6 MG TAB PO SCH ×2 (07:55→08:02)
[2019-03-01] MEDS: AMOXICILLIN/CLAVULANATE 875 MG TAB PO SCH ×2 (07:56→16:37)
[2019-03-01] MEDS: FERROUS SULFATE 325 MG TAB PO SCH ×2 (07:56→16:37)
[2019-03-01] MEDS: METOPROLOL SUCC 50MG EXT REL TAB PO SCH (07:57)
[2019-03-01] MEDS: FLUTICASONE/VILANTEROL INHALER INH SCH (07:58)
[2019-03-01] MEDS: NYSTATIN SUSP 500,000 U/5 ML UDC PO SCH ×4 (09:45→20:22)
--- NOTE | 2019-03-01 09:49 | Cardiology Progress Note ---
Date of Service March 01, 2019 Assessment & Plan (1) A-fib: The patient converted to normal sinus rhythm on intravenous amiodarone. Plan to change her to amiodarone 200 mg p.o. daily. Feel that she is a high risk candidate for long-term anticoagulation due to her frequent falls and history of a traumatic intercerebral hemorrhage when on Plavix. (2) Traumatic hematoma of abdominal wall with infection: Management per medical and surgical teams. (3) CAD (coronary artery disease): Nonobstructive disease identified at time of cardiac catheterization in May 2009. (4) Aortic valve insufficiency: Mild aortic insufficiency noted on echocardiogram performed February 12 of this year. (5) HTN (hypertension): Adequate control on current medical regimen. Subjective The patient is resting comfortably in bed without complaints of chest pain, dyspnea, palpitations. Her daughter and son are at the bedside. Physical Exam Physical Exam: In general is well-developed well-nourished white female no acute distress. HEENT exam is negative. Neck is supple with full carotid upstrokes. There are no carotid bruits. Jugular venous pressure is flat at 90 degrees. There is no thyromegaly. Cardiovascular exam reveals a regular rhythm with distant heart sounds. No obvious murmurs. Lungs are clear without rales, rhonchi or wheezes. Abdomen notes a wound VAC in place. Extremities reveal intact radial artery pulses bilaterally. Trace pretibial edema. Results & Data Vital Signs (Past 12 Hours) Vital Signs Temp Pulse Pulse Pulse Resp BP BP 03/01/19 07:57 62 03/01/19 07:50 36.3 C L 58 L 18 151/68 H 03/01/19 02:26 36.5 C 62 20 159/79 H 02/28/19 23:32 36.5 C 61 18 152/60 H 02/28/19 21:46 61 21 Pulse Ox 03/01/19 07:57 03/01/19 07:50 94 03/01/19 02:26 94 02/28/19 23:32 90 02/28/19 21:46 94 Laboratory Results CBC notes a hemoglobin of 8.8, hematocrit 27.1, white count 10.6, and a platelet count of [id number]. Electrolytes note a sodium of 137, potassium 3.9, chloride 106, bicarb 26, BUN 22, creatinine 0.74, and a glucose of 78. 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 No recurrence of atrial fibrillation. (1) Traumatic hematoma of abdominal wall with infection Encounter type: subsequent encounter Qualified Code(s): S30.1XXD - Contusion of abdominal wall, subsequent encounter; L08.9 - Local infection of the skin and subcutaneous tissue, unspecified (2) A-fib Atrial fibrillation type: unspecified Qualified Code(s): I48.91 - Unspecified atrial fibrillation (3) HTN (hypertension) Hypertension type: essential hypertension Qualified Code(s): I10 - Essential (primary) hypertension
--- NOTE | 2019-03-01 15:42 | Wound Progress Note ---
Date of Service March 01, 2019 Assessment & Plan (1) Traumatic hematoma of abdominal wall with infection: Wound VAC was removed. There is good granulation tissue underneath. Drainage is continued to become patient access associate and patient access associate. There was some oozing at the 7 o'clock position. Patient is doing very well with the irrigating wound VAC. Would like to continue this for at least 1 more 4 day cycle with the current settings. After the next 4 days cycle will likely transition patient to a standard wound VAC. Again patient is tolerating negative pressure therapy very well especially using the current irrigating settings. Patient will be seen in the office 1 week after discharge. Thank you for allowing to participate in the care of this patient. Please not hesitate to call with any questions. Subjective Patient seen in follow-up of abdominal wound abscess. She is lying in bed with her daughter and son-in-law. She is using an irrigating wound VAC and tolerating this well. Review of Systems Review of Systems: All systems reviewed & are unremarkable except as noted in HPI & below Physical Exam Skin: Wound measuring as recorded in nursing documentation. Wound is covered with good granulation tissue. There is some oozing in the 7 o'clock position. Periwound is intact without inflammation. Neurologic: awake; not confused Psychiatric: A+Ox3, euthymic affect Results & Data Vital Signs (Past 12 Hours) Vital Signs Temp Pulse Pulse Pulse Resp BP BP 03/01/19 15:15 36.6 C 60 20 148/69 H 03/01/19 11:16 36.4 C L 59 L 18 162/104 H 03/01/19 08:00 55 L 03/01/19 07:57 62 03/01/19 07:50 36.3 C L 58 L 18 151/68 H Pulse Ox 03/01/19 15:15 95 03/01/19 11:16 95 03/01/19 08:00 03/01/19 07:57 03/01/19 07:50 94 (1) Traumatic hematoma of abdominal wall with infection Encounter type: subsequent encounter Qualified Code(s): S30.1XXD - Contusion of abdominal wall, subsequent encounter; L08.9 - Local infection of the skin and subcutaneous tissue, unspecified
[2019-03-01] MEDS: ALBUTEROL HFA 8 GM INHALER INH PRN ×2 (16:39→20:24)
--- NOTE | 2019-03-01 18:11 | Infectious Disease Progress Nt ---
Date of Service March 01, 2019 Assessment & Plan (1) Abscess of abdominal wall: Patient with large abdominal abscess status post drainage with cultures growing E. coli, now with large abdominal wound . Would continue Zosyn for now, consider transition to oral Augmentin when taking better p.o. Will follow. Review of Systems Review of Systems: All systems reviewed & are unremarkable except as noted in HPI & below Physical Exam Constitutional: WD/WN, vitals as above comfortable; no acute distress Eyes: PERRL, conjunctivae normal, anicteric sclerae ENMT: external ear and nose normal, oropharynx normal Neck: trachea midline, no thyromegaly normal visual inspection; neck nontender Respiratory: normal respiratory effort, lungs clear to auscultation normal percussion; no respiratory distress Cardiovascular: RRR, no murmur, no edema Rate/Rhythm: regular rate and regular rhythm Heart Sounds: normal S1 and normal S2; no gallop, no murmur and no cardiac rub Gastrointestinal (Abdomen): normal bowel sounds, soft, nontender, no hepatosplenomegaly Inspection/Auscultation: + abdomen distended and normal bowel sounds Percussion/Palpation: + abdomen tender; no hepatosplenomegaly and no abdominal mass Musculoskeletal: no cyanosis or clubbing, extremities motor strength 5/5 Head/Neck/Chest: normocephalic, head atraumatic and neck supple Extremities: strength 5/5 throughout Skin: no rashes, warm and dry normal turgor Neurologic: moves all extremities and awake; no focal motor deficits Speech / Cognition: normal speech Motor/Sensory: no sensory deficit Psychiatric: A+Ox3, euthymic affect Lymphatic: no cervical or axillary lymphadenopathy no inguinal lymphadenopathy Results & Data Vital Signs (Past 12 Hours) Vital Signs Temp Pulse Pulse Pulse Resp BP BP 03/01/19 15:15 36.6 C 60 20 148/69 H 03/01/19 11:16 36.4 C L 59 L 18 162/104 H 03/01/19 08:00 55 L 03/01/19 07:57 62 03/01/19 07:50 36.3 C L 58 L 18 151/68 H Pulse Ox 03/01/19 15:15 95 03/01/19 11:16 95 03/01/19 08:00 03/01/19 07:57 03/01/19 07:50 94 Laboratory Results Short CBC 03/01/19 Range/Units 06:00 WBC 10.60 (4.8-10.8) K/uL Hgb 8.8 L (12.0-16.0) g/dL Hct 27.1 L (37-47) % Plt Count 269 (130-400) K/uL BMP 03/01/19 06:00 Sodium 137 Potassium 3.9 Chloride 106 Carbon Dioxide 26 BUN 22 H Creatinine 0.74 Glucose 78 Calcium 8.5 Diagnostic Findings Microbiology 02/18/19 10:37 Abdomen Gram Stain - Final 02/18/19 10:37 Abdomen Aerobic and Anaerobic Culture - Final Escherichia coli Bacteroides uniformis 02/18/19 Unknown Abdomen Gram Stain - Final 02/18/19 Unknown Abdomen Wound Culture - Final Escherichia coli 02/06/19 15:05 Blood Aerobic Blood Culture - Final No growth in Aerobic bottle after 5 days. 02/06/19 15:05 Blood Anaerobic Blood Culture - Final No growth in Anaerobic bottle after 5 days. 02/06/19 15:05 Blood Aerobic Blood Culture - Final No growth in Aerobic bottle after 5 days. 02/06/19 15:05 Blood Anaerobic Blood Culture - Final No growth in Anaerobic bottle after 5 days. 02/06/19 19:50 Urine,Clean Catch Urine Culture - Final More than three types of organisms present, all high counts mixed probable skin tierney - No further identifications or sensitivities to follow.
[2019-03-01] MEDS: FLUOXETINE HCL 20 MG CAP PO SCH (20:24)
--- NOTE | 2019-03-01 21:08 | Hospitalist Progress Note ---
Date of Service March 01, 2019 Assessment & Plan (1) A-fib: PAF x 2 episodes this admission. First episode 2 weeks ago self-resolved. This week's episode resolved after about 8 hours. Echo this admission with preserved EF and normal valvular function. Earlier this stay she had poor rate control despite oral BB and 2 doses of IV digoxin when she had it. CHADS-VASC score is at least a 6. Anticoagulation should be considered - especially in light of her recent TIA - but was NOT started due to the abdominal fluid collection issue, anemia, and hematoma. 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 NO anticoagulation for now. Started on amiodarone drip, then converted to amiodarone 200mg PO daily. Dr Horner following - recommending ongoing use of amio. Continue tele status to observe for recurrent PAF. (2) Anemia: Likely multifactorial - blood draws, blood loss from abd wound (earlier this stay), etc. stool HEME NEGATIVE x 2. CT abd/pelvis 02/27 WITHOUT retroperitoneal bleeding or other area of bleeding. Hemolysis labs negative. s/p 2 units PRBCs on 02/27 with stable H/H again today. B12/folate normal earlier this stay. Iron studies c/w ACD. Trans sat < 20 % --- cont ferrous sulfate 325mg BID. If H/H stable tomorrow then resume plavix (had been on such prior to admission). (3) Traumatic hematoma of abdominal wall with infection: s/p incision & drainage by Dr Pablo on February 18 following spontaneous rupture of the large intra-abdominal fluid collection. suspected that she had developed a large intra-abdominal hematoma s/p fall with subsequent development of infection. there has been some concern about a fistulous tract to the colon. cultures grew pansensitive e. coli and bacteroides. Had been on zosyn most of this stay - transitioned to augmentin 02/28/19. remains on wound vac. defer management of latter to wound care team. CT of abd/pelvis 02/27 showed RESOLUTION of intra-abdominal fluid collection. (4) Abdominal wall fluid collections: Fluid collection initially felt to be a hematoma with no concern for abscess. Drainage was not pursued at time of admission. Fistula also felt to be present. Shortly after, however, there was growing concern for an infected seroma/hematoma and thus IV antibiotics were started. She had been on IV antibiotics this entire admission except for <[address] scan on 02/10/19 showed modest improvement in size of collections. Then, CT scan on 02/16/19 actually showed mild worsening/enlargement. On February 18 she had spontaneous rupture of the collection via the skin exuding copious purulent and bloody fluid. Then went to the OR the same day with Dr Pablo for I/D and washout. Recovering nicely since that time with use of ongoing IV abx and wound vac. Cont augmentin per ID recs. Cont wound vac. (5) Transient ischemic attack: 02/11/19. Slurred speech with questionable facial droop. MRI neg for acute stroke. CTA head/neck w/o stenosis or other findings. Echo w/o source of thrombus. In light of PAF and high CHADs-VASC score systemic anticoagulation would ultimately be recommended. See above in "a.fib." Poor candidate for anticoagulation however and thus will NOT pursue. NO TIA events since 02/11/19. Resume plavix tomorrow AM if H/H stable. (6) ARF (acute renal failure): resolved (7) Metabolic encephalopathy: resolved (8) Hyperlipidemia: lipitor (9) Depression: cont fluoxetine no issues (10) Asthma: no exacerbation (11) HTN (hypertension): BPs climbing. Resume amlodipine in am. Cont beta david. (12) GERD (gastroesophageal reflux disease): continue PPI (13) Candidiasis of mouth and esophagus: recurred - will restart nystatin 5cc po qid (14) Hypothyroidism: most recent TSH wnl cont synthroid (15) Obstructive sleep apnea, adult: continue HS CPAP (16) Chronic kidney disease, stage 3a: stable creatinine today once again (17) DVT prophylaxis: SCDs updated at bedside today patient ready for d/c to [facility] pending Subjective had good night. tele - NSR, no a.fib. no chest or abd pain. no dyspnea or cough. wound vac - pink, thin fluid. no todd blood. stool heme negative again. eating VERY well. Review of Systems Constitutional: no fever, no chills, no fatigue and no anorexia Respiratory: no cough, no dyspnea and no dyspnea on exertion Cardiovascular: no chest pain, no orthopnea, no paroxysmal nocturnal dyspnea and no edema Gastrointestinal: no abdominal pain, no nausea, no vomiting and no diarrhea/loose stools Physical Exam Constitutional: well developed and well nourished; no acute distress and no altered mental status ENMT: external ear and nose normal, oropharynx normal Respiratory: normal respiratory effort, lungs clear to auscultation Auscultation: no crackles and no wheezes Cardiovascular: Rate/Rhythm: regular rate and regular rhythm Heart Sounds: normal S1 and normal S2; no murmur Vessels: posterior tibial pulses present and dorsalis pedis pulses present; no JVD Extremities: no edema Gastrointestinal (Abdomen): normal bowel sounds, soft, nontender, no hepatosplenomegaly Skin: + rash abdominal wall - numerous scars; woundvac midline; no erythema any location of abdominal wall. Psychiatric: A+Ox3, euthymic affect Results & Data Vital Signs (Past 12 Hours) Vital Signs Temp Pulse Pulse Resp BP BP Pulse Ox 03/01/19 19:46 36.6 C 58 L 19 169/72 H 95 03/01/19 15:15 36.6 C 60 20 148/69 H 95 03/01/19 11:16 36.4 C L 59 L 18 162/104 H 95 Laboratory Results Laboratory Results - last 24 hr 02/28/19 03/01/19 03/01/19 13:40 06:00 06:00 WBC 10.60 RBC 3.08 L Hgb 8.8 L Hct 27.1 L MCV 88.0 MCH 28.6 MCHC 32.5 RDW Std Deviation 51.9 H RDW Coeff of Elliot 16.0 H Plt Count 269 MPV 8.1 Sodium 137 Potassium 3.9 Chloride 106 Carbon Dioxide 26 Anion Gap 5.0 BUN 22 H Creatinine 0.74 Est Cr Clr Drug Dosing 51.3 Est GFR ( Amer) 84.4 Est GFR (Non-Af Amer) 72.8 BUN/Creatinine Ratio 29.2 H Glucose 78 Calcium 8.5 Stool Occult Bld Scrn Negative PG Care Time/CCT Total # of Minutes Spent Total Time Spent with Patient: Total time spent is greater than 50% in coordination of care (as documented) at patient's floor/unit and/or counseling patient: (1) Traumatic hematoma of abdominal wall with infection Encounter type: subsequent encounter Qualified Code(s): S30.1XXD - Contusion of abdominal wall, subsequent encounter; L08.9 - Local infection of the skin and subcutaneous tissue, unspecified (2) ARF (acute renal failure) Acute renal failure type: unspecified Qualified Code(s): N17.9 - Acute kidney failure, unspecified (3) Anemia Anemia type: unspecified type Qualified Code(s): D64.9 - Anemia, unspecified (4) A-fib Atrial fibrillation type: unspecified Qualified Code(s): I48.91 - Unspecified atrial fibrillation (5) Depression Depression Type: other depression Qualified Code(s): F32.89 - Other specified depressive episodes (6) Hyperlipidemia Hyperlipidemia type: mixed hyperlipidemia Qualified Code(s): E78.2 - Mixed hyperlipidemia (7) Hypothyroidism Hypothyroidism type: acquired Qualified Code(s): E03.9 - Hypothyroidism, unspecified (8) GERD (gastroesophageal reflux disease) Esophagitis presence: esophagitis presence not specified Qualified Code(s): K21.9 - Gastro-esophageal reflux disease without esophagitis (9) HTN (hypertension) Hypertension type: essential hypertension Qualified Code(s): I10 - Essential (primary) hypertension (10) Asthma Asthma complication type: uncomplicated Asthma persistence: unspecified Asthma severity: unspecified severity Qualified Code(s): J45.909 - Unspecified asthma, uncomplicated
[2019-03-02] MEDS: LEVOTHYROXINE SODIUM 25 MCG TABLET PO SCH (06:21)
[2019-03-02 06:46] LABS: Hematocrit (blood only) 29.3 % (37-47); Hemoglobin 9.4 g/dL (12.0-16.0)
[2019-03-02 07:21] LABS: BUN Creatinine Ratio 26.4 (10-20); Calcium 8.5 mg/dl (8.5-10.1); Creatinine Clr Calc Pharmacy 45.8 ml/min; Est GFR (African American) 73.5; Est GFR (Non-African American) 63.4; Potassium 4.2 mmol/L (3.5-5.1)
--- NOTE | 2019-03-02 07:38 | Progress Note ---
Date of Service March 02, 2019 Assessment & Plan (1) Abscess of abdominal wall: no acute chgs- wound vac mgt per Dr Nix team. Hct seems more stable. Hopefully pt will progress and regain strength- the past months have caused significant difficulties for this pt including cardiovascular issues of afib and TIAs- Dr Williamson notes address this very well Dr Khan covering over weekend Results & Data Vital Signs (Past 12 Hours) Vital Signs Temp Pulse Pulse Pulse Resp BP BP 03/02/19 07:10 36.3 C L 57 L 16 166/75 H 03/02/19 04:00 58 L 20 167/84 H 03/02/19 00:00 58 L 03/01/19 23:13 36.6 C 61 21 176/65 H 03/01/19 21:51 59 L 16 03/01/19 19:46 36.6 C 58 L 19 169/72 H Pulse Ox 03/02/19 07:10 95 03/02/19 04:00 95 03/02/19 00:00 03/01/19 23:13 92 03/01/19 21:51 96 03/01/19 19:46 95
[2019-03-02] MEDS: FERROUS SULFATE 325 MG TAB PO SCH ×2 (08:25→17:06)
[2019-03-02] MEDS: LACTOBACILLUS ACIDOPHILUS (FLORANEX) TAB PO SCH ×3 (08:25→17:05)
[2019-03-02] MEDS: AMOXICILLIN/CLAVULANATE 875 MG TAB PO SCH ×2 (08:25→17:06)
[2019-03-02] MEDS ORDERED: AMLODIPINE BESYLATE 5 MG TAB PO SCH (09:00)
[2019-03-02] MEDS: FLUTICASONE/VILANTEROL INHALER INH SCH (09:54)
[2019-03-02] MEDS: METOPROLOL SUCC 50MG EXT REL TAB PO SCH (09:57)
[2019-03-02] MEDS: ATORVASTATIN 20 MG TAB PO SCH (09:57)
[2019-03-02] MEDS: CHOLECALCIFEROL 1,000 UNITS TAB PO SCH (09:57)
[2019-03-02] MEDS: PANTOprazole 40 MG TAB PO SCH (09:58)
[2019-03-02] MEDS: CALCIUM CARBONATE 1250MG TAB PO SCH (09:58)
[2019-03-02] MEDS: MULTIVITAMIN TAB PO SCH (09:58)
[2019-03-02] MEDS: POTASSIUM CHLORIDE 10 MEQ TABCR PO SCH (09:58)
[2019-03-02] MEDS: MAGNESIUM OXIDE 400 MG TAB PO SCH (09:58)
[2019-03-02] MEDS: AMIODARONE 200 MG TAB PO SCH (09:59)
[2019-03-02] MEDS: NYSTATIN SUSP 500,000 U/5 ML UDC PO SCH ×3 (09:59→17:05)
[2019-03-02] MEDS: SENNA 8.6 MG TAB PO SCH (09:59)
[2019-03-02] MEDS: FLUOXETINE HCL 10 MG CAP PO SCH (09:59)
[2019-03-02] MEDS: CLOPIDOGREL BISULFATE 75 MG TAB PO SCH ×2 (10:01→13:26)
[2019-03-02] MEDS ORDERED: hydroCHLOROthiazide 25 MG TAB PO STA (13:01)
--- NOTE | 2019-03-02 16:14 | Infectious Disease Progress Nt ---
Date of Service March 02, 2019 Assessment & Plan (1) Abscess of abdominal wall: Patient with large abdominal abscess status post drainage with cultures growing E. coli, now with large abdominal wound . Would continue Zosyn for now, consider transition to oral Augmentin when taking better p.o. Will follow. Subjective Patient seen in follow-up for abdominal abscess. States she is feeling reasonably well, offers no new specific complaints. Remains afebrile. Tolerating antibiotics without apparent difficulty. Review of Systems Review of Systems: All systems reviewed & are unremarkable except as noted in HPI & below Physical Exam Constitutional: WD/WN, vitals as above comfortable; no acute distress Eyes: PERRL, conjunctivae normal, anicteric sclerae ENMT: external ear and nose normal, oropharynx normal Neck: trachea midline, no thyromegaly normal visual inspection; neck nontender Respiratory: normal respiratory effort, lungs clear to auscultation normal percussion; no respiratory distress Cardiovascular: RRR, no murmur, no edema Rate/Rhythm: regular rate and regular rhythm Heart Sounds: normal S1 and normal S2; no gallop, no murmur and no cardiac rub Gastrointestinal (Abdomen): normal bowel sounds, soft, nontender, no hepatosplenomegaly Inspection/Auscultation: + abdomen distended and normal bowel sounds Percussion/Palpation: + abdomen tender; no hepatosplenomegaly and no abdominal mass Musculoskeletal: no cyanosis or clubbing, extremities motor strength 5/5 Head/Neck/Chest: normocephalic, head atraumatic and neck supple Extremities: strength 5/5 throughout Skin: no rashes, warm and dry normal turgor Neurologic: moves all extremities and awake; no focal motor deficits Speech / Cognition: normal speech Motor/Sensory: no sensory deficit Psychiatric: A+Ox3, euthymic affect Lymphatic: no cervical or axillary lymphadenopathy no inguinal lymphadenopathy Results & Data Vital Signs (Past 12 Hours) Vital Signs Temp Pulse Pulse Resp BP BP Pulse Ox 03/02/19 13:23 63 177/68 H 03/02/19 12:10 36.6 C 58 L 18 95 03/02/19 12:01 61 152/72 H 03/02/19 07:10 36.3 C L 57 L 16 166/75 H 95 Laboratory Results Short CBC 03/02/19 Range/Units 06:24 Hgb 9.4 L (12.0-16.0) g/dL Hct 29.3 L (37-47) % BMP 03/02/19 06:24 Sodium 142 Potassium 4.2 Chloride 109 H Carbon Dioxide 28 BUN 22 H Creatinine 0.83 Glucose 78 Calcium 8.5 Diagnostic Findings Microbiology 02/18/19 10:37 Abdomen Gram Stain - Final 02/18/19 10:37 Abdomen Aerobic and Anaerobic Culture - Final Escherichia coli Bacteroides uniformis 02/18/19 Unknown Abdomen Gram Stain - Final 02/18/19 Unknown Abdomen Wound Culture - Final Escherichia coli 02/06/19 15:05 Blood Aerobic Blood Culture - Final No growth in Aerobic bottle after 5 days. 02/06/19 15:05 Blood Anaerobic Blood Culture - Final No growth in Anaerobic bottle after 5 days. 02/06/19 15:05 Blood Aerobic Blood Culture - Final No growth in Aerobic bottle after 5 days. 02/06/19 15:05 Blood Anaerobic Blood Culture - Final No growth in Anaerobic bottle after 5 days. 02/06/19 19:50 Urine,Clean Catch Urine Culture - Final More than three types of organisms present, all high counts mixed probable skin tierney - No further identifications or sensitivities to follow.
--- NOTE | 2019-03-02 18:20 | Discharge Summary ---
Date of Service date of admission - February 06, 2019 date of discharge - March 02, 2019 Admission HPI Per Admitting Provider 88 y/o female who was sent to the ED for evaluation after being found to have a fluid collection on a CT of the abdomen and pelvis. Daughter states that pt had a fall in a [employer] parking lot in December 2018. She hit several areas of her body, including face, left shoulder and knee, and ribs which resulted in rib fractures. She was evaluated at that time and recovered from those injuries. A few weeks later she noted that her abdomen was red and warm. Patient has history of numerous abdominal surgeries leading to considerable scar tissue formation that has led to her abdominal wall always having some level of distention and unusual texture/appearance. Patient was being seen by Dr. Daryl Horner on 01/24/19 for a routine cardiology visit and he noted her abdominal skin changes. He thought it looked like a possible fungal infection and advised use of lamisil. She was having no abdominal pain at that time. They used the lamisil and her warmth and redness resolved. Patient had another fall on 01/26/19. This time she fell backwards. She was having ongoing pain related to this and was seen by her PCP and orthopedics. She was ultimately diagnosed with a coccyx fracture. On day of admission the patient noted abdominal pain and distention that was new from the prior issues. She was seen by her PCP who ordered a CT abdomen & pelvis. This demonstrated a very large intra-abdominal fluid collection and patient was subsequently sent to the ED for evaluation. Upon admission the patient stated that she mostly was just tired. Daughter stated that the patient had not been active since her initial fall due to aches & pain related to the falls. She had been spending a lot of time in bed. The patient denied any fever, chills, SOB, chest pain, nausea, emesis, LE pain or swelling. Patient had been taking plavix for a history of CVA in 2001. This was diagnosed via CT scan in [place]. Patient reported ambulation issues since that time due to some LE weakness from the CVA. She felt that both of her recent falls were due to LE weakness. She had no lightheadedness or dizziness prior to these falls - she simply lost her balance and could not correct it. Dr. Khan from general surgery was consulted shortly after presentation and felt that the intra-abdominal fluid collection was likely a hematoma from her recent falls. Drainage was not advised. There was suggestion of fistula on the CT scan as well but again surgical intervention was deferred at time of admission. Principal Diagnosis infected intra-abdominal hematoma - s/p spontaneous drainage as well as I & D by general surgery Discharge Exam Constitutional well developed and well nourished; no acute distress and no altered mental status ENMT external ear and nose normal, oropharynx normal Mouth: + oral mucosal abnormality (resolving thrush plaques) Respiratory normal respiratory effort, lungs clear to auscultation Auscultation: no crackles and no wheezes Cardiovascular Rate/Rhythm: regular rate and regular rhythm Heart Sounds: normal S1 and normal S2; no murmur Vessels: posterior tibial pulses present and dorsalis pedis pulses present; no JVD Extremities: + edema (trace b/l) Gastrointestinal (Abdomen) normal bowel sounds, soft, nontender, no hepatosplenomegaly wound vac in place - midline of abdomen. Numerous scars on abdominal wall. No abdominal wall erythema. Skin no rashes, warm and dry Psychiatric A+Ox3, euthymic affect Discharge Data Allergies Allergy/AdvReac Type Severity Reaction Status Date / Time oxycodone Allergy Mild RASH Verified 02/06/19 11:01 alendronate sodium [facility] Ver[facility] 02/06/19 11:01 Bactrim Allergy Unknown [facility] LIST Verified 02/07/18 04:16 cefuroxime Allergy Unknown UNKNOWN ON Verified 02/06/19 11:01 LIST Cipro Allergy Unknown Unknown Verified 02/07/18 21:42 ciprofloxacin Allergy Unknown UNKNOWN ON Verified 02/06/19 11:01 LIST codeine Allergy Unknown UNKNOWN ON Verified 02/06/19 11:01 LIST gabapentin Allergy Unknown UNKNOWN ON Verified 02/06/19 11:01 LIST meperidine Allergy Unknown UNKNOWN ON Verified 02/06/19 11:01 LIST propoxyphene Allergy Unknown UNKNOWN ON Verified 02/06/19 11:01 LIST Sulfa (Sulfonamide Allergy Unknown UNKNOWN ON Verified 02/06/19 11:01 Antibiotics) LIST sulfamethoxazole Allergy Unknown [facility] Verified 02/06/19 11:01 trimethoprim Allergy Unknown [facility] Verified 02/06/19 11:01 amphetamine AdvReac Severe UNKNOWN ON Verified 02/06/19 11:01 LIST dextroamphetamine AdvReac Severe UNKNOWN ON Verified 06/25/19 11:01 LIST hydrochlorothiazide AdvReac Intermediate GI DISTRESS Verified 02/06/19 11:01 methyldopa AdvReac Intermediate GI DISTRESS Verified 02/06/19 11:01 Consultations 1. general surgery - Armando Pablo MD 2. neurology - Tj Hartmann MD 3. infectious disease - Fabian Espinosa MD 4. PT, OT, speech therapy 5. wound care nurse 6. wound care provider - Oswald Koroma DO 7. cardiology - Daryl Horner MD 8. critical care - Ry Ortiz MD Procedures Performed 1. Operation Date: 02/18/19 -- Incision and Drainage abdominal wall abscess - Armando Pablo MD, FACS 2. application of wound vac 3. PRBCs x 7 units Ordered Studies 1. CT abd/pelvis - 02/06/19 - IMPRESSION: 1. Large complex subcutaneous fluid collection of the anterior abdominal wall that extends to the abdominal wall musculature, measuring 21.7 x 7.7 x 14.5 cm. Areas of increased attenuation suggest blood clot. This favors hemorrhage, possibly within a seroma. However, gas within this collection raises the possibility of a superimposed infection or fistula. Previous ventral hernia repair with mesh with thick-walled gas containing focus which extends deep to the abdominal wall musculature and abuts the transverse colon. Although not identified, an underlying colonic fistula cannot be excluded. Discussed with Dr. Rodríguez at time of dictation. 2. No bowel obstruction. Extensive colonic diverticulosis. 3. Complex lesion arising from the lower pole of the left kidney. A cyst is favored however this is indeterminate and suboptimally assessed on this unenhanced exam. A nonemergent renal ultrasound is recommended. 4. Acute appearing mildly displaced inferior sacral fracture as shown on recent radiographs. 2. CT abd/pelvis - 02/10/19 - IMPRESSION: 1. Again seen is a large collection within the ventral abdominal wall. This has decreased in complexity as compared to 02/06/2019, and the small foci of internal gas have also decreased from previous. This likely represents a large seroma/hematoma. Superimposed infection would be impossible to exclude and clinical correlation will be essential. 2. There is evidence of previous ventral hernia repair. An intraperitoneal component of the collection is again seen deep to the hernia mesh and this has not appreciably changed from previous. 3. Suspect a fistulous connection between the intraperitoneal component of the collection and the subjacent transverse colon. 4. There is no bowel obstruction. 5. Mild to moderate colonic diverticulosis without CT evidence of acute diverticulitis. 6. There is a large nonobstructing right renal calculus. 7. There is a 7.5 cm minimally complex cystic lesion arising from the lower pole of left kidney. No enhancing elements are identified and this is of low suspicion. Consider precautionary ultrasound follow-up in [address] abd/pelvis - 02/27/19 - IMPRESSION: 1. No retroperitoneal hematoma. 2. Expected findings following evacuation of the anterior abdominal wall fluid collection with open wound. No residual fluid collection. No change in a gas-filled tract which extends from the wound toward the transverse colon. An underlying fistula cannot be excluded. 3. Interval development of a small pericardial effusion. Small bilateral pleural effusions. 4. CTA head & neck - no aneurysm, dissection or focal stenosis. 5. CT head - IMPRESSION: 1. No acute intracranial findings 2. Extensive small vessel disease 3. 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 MRI brain - IMPRESSION: No significant change compared to the prior study. No acute intracranial abnormality. 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 Bilateral basal ganglia lacunar infarcts (old). 7. echocardiogram - * EF 50-55% * asymmetric basal septum hypertrophy * normal valvular function * no ASD on bubble study Hospital Course (1) Abdominal wall fluid collections: Fluid collection initially felt to be a hematoma with no concern for abscess. Drainage was not pursued at time of admission. Fistula also felt to be present. Shortly after, however, there was growing concern for an infected seroma/hematoma and thus IV antibiotics were started. She had been on broad-spectrum IV antibiotics this entire admission except for <[address] scan on 02/10/19 showed modest improvement in size of collections. Thus conservative management with IV antibiotics alone was recommended to the patient early on. Then, CT scan on 02/16/19 actually showed mild worsening/enlargement. On February 18, 2019, she had spontaneous rupture of the collection via the skin exuding copious (1-2 liters) purulent and bloody fluid. Culture was sent from this fluid ultimately yielding e.coli. On the same day, 02/18/19, she was taken to the OR by Dr Armando Pablo who performed I/D and washout of the remaining intra-abdominal fluid collection. Intra-op culture grew both e.coli and bacteroides. She went to the ICU post-operatively for 24 hours and did well requiring nothing more than NC O2. She was ultimately transitioned back to the floor. Wound care was consulted who applied a wound vac to the abdominal wound. She was continued on IV zosyn. With the use of wound vac, IV zosyn, and supportive care she improved on a general basis. Appetite, fatigue, and her entire clinical status improved. She was seen in consult by ID, Dr Espinosa, who recommended transitioning to oral augmentin from the zosyn just prior to discharge. At discharge she will -- 1. Continue the wound vac per Wound Care Team recommendations. She will need the wound vac dressings [facility], [facility]. 2. Continue augmentin twice daily for minimum of 2 weeks. She may need these longer depending on clinical response. 3. Follow-up with Dr Pablo in the surgical clinic in about 2 weeks post- discharge. There is suspicion for a fistulous tract from the abdominal collection cavity to the transverse colon but no surgical intervention is recommended at this time. (2) Traumatic hematoma of abdominal wall with infection: s/p incision & drainage by Dr Pablo on February 18 following spontaneous rupture of the large intra-abdominal fluid collection. It was suspected that she had developed this large intra-abdominal hematoma due to prior falls. Unfortunately the hematoma subsequently developed infection. There has been some concern about a fistulous tract to the colon based on multiple imaging studies. Cultures grew pansensitive e. coli and bacteroides. Had been on zosyn most of this stay - transitioned to PO augmentin on 02/28/19. Remains on wound vac. CT of abd/pelvis 02/27/19 showed RESOLUTION of the intra-abdominal fluid collection. 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 Conservative treatment recommended at this time. (4) A-fib: PAF x 2 episodes this admission. First episode was mid-way through the stay and spontaneously resolved. Had a second episode about 3 days prior to discharge. Echo this admission showed preserved EF and normal valvular function. She had poor rate control despite oral beta david and IV digoxin. CHADS-VASC score is at least a 6. Anticoagulation would be ideal - especially in light of her recent TIA and prior stroke - but anticoagulation was NOT started due to the abdominal hematoma, anemia, etc. She is an extremely POOR candidate for future systemic anticoagulation given prior falls, old subdural hygromas of brain from prior falls, blood in abdomen from falls, etc. NO anticoagulation for now. For her 2nd episode of PAF she was initiated on amiodarone drip, then converted to amiodarone 200mg PO daily. She did indeed convert back to NSR and remained in NSR for about 48 hours prior to discharge. Dr Horner recommended ongoing use of oral amiodarone 200mg daily in addition to her beta david at discharge. Fortunately she never had acute CHF in the setting of her PAF. (5) Anemia: Hemoglobin on day of admission was 9.3. On day of discharge hemoglobin was 9.4. Anemia was likely multifactorial - the intra-abdominal hematoma itself, blood draws, blood loss from her abdominal wound, etc. Stool was HEME NEGATIVE x 2. CT abd/pelvis 02/27/19 WITHOUT retroperitoneal bleeding or other areas of bleeding. Hemolysis labs were negative. She received 7 units of PRBCs in total throughout her protracted stay. B12/folate were normal. Iron studies were c/w anemia of chronic disease (ACD). Trans sat < 20 % --- she will continue ferrous sulfate 325mg BID at discharge. Recommend repeat CBC in 2-3 days post-discharge for stability. (6) Transient ischemic attack: 02/11/19. Had slurred speech with questionable facial droop. MRI negative for acute stroke. CTA head/neck w/o stenosis or other findings. Echo w/o source of thrombus. In light of PAF and high CHADs-VASC score systemic anticoagulation would be ideal however this was deferred. See above in "a.fib." Poor candidate for anticoagulation however and thus will NOT pursue at this time. NO TIA events since 02/11/19. During her stay she received 81mg aspirin for secondary prevention and was transitioned back to plavix 75mg daily on day of discharge. Family was counseled that there is a small risk of bleeding from the abdominal wound but that she definitely needs secondary prevention of TIA/stroke given her history. (7) ARF (acute renal failure): resolved peak creatinine 1.4, improving to 0.8 prior to discharge (8) Metabolic encephalopathy: resolved was 2nd to infected intra-abdominal hematoma (9) Hyperlipidemia: continue lipitor, especially in light of TIA/stroke history (10) Depression: cont fluoxetine no issues while here (11) Asthma: no exacerbation during her entire stay remains on daily Breo and albuterol prn (12) HTN (hypertension): Most of her BP meds were held in the midst of bleeding and relative hypotension. Ultimately, however, her amlodipine and 1/2 of her normal HCTZ dose were resumed. Her lisinopril was HELD at time of discharge. She also remains on metoprolol succinate once daily. (13) GERD (gastroesophageal reflux disease): continue PPI (14) Candidiasis of mouth and esophagus: Recurrent issue during the stay due to copious antibiotic usage and daily inhaled steroid use. Finish course of nystatin 5cc po qid. (15) Hypothyroidism: most recent TSH wnl cont synthroid (16) Obstructive sleep apnea, adult: continue HS CPAP (17) Chronic kidney disease, stage 3a: stable creatinine of 0.8 at discharge. CrCl at baseline - 40s. (18) Complex renal cyst: LEFT. If patient wants to pursue additional work-up would simply refer to urology following her rehab stay. Total Time Total Time Spent Total Time Spent (In Minutes): 60 Total Time Includes: Examination of the Patient, Discharge Planning, Medication Reconciliation and Communication With Other Providers (medical chemist of insurance co ("peer to peer"), surgery, [facility] director, etc) Discharge Plan Discharge Items Patient Disposition: Transfer Inpatient Rehab Fac Reason For Visit: HEMATOMA of abdomen Discharge Diagnosis: 1. Infected intra-abdominal hematoma/seroma - s/p spontaneous drainage followed by incision/drainage by Dr Armando Pablo. 2. TIA 3. Paroxysmal a.fib x 2 episodes Discharge Goals: Diagnostic testing, Improve disease control, Improve nutritional status, Learn about illness and Therapeutic intervention Activity: Resume your previous activity Bathing: Keep incision dry Non-emergency contact: Primary Care Provider, Surgeon, Specialist and Weigher Operator Call non-emergency contact if: you have any medication questions, your symptoms worsen, your pain is unusual for you, your pain is concerning for you, your temperature is above 100.5, your wound has increased redness, your wound has increased drainage and your wound pain has increased Follow-up/Referrals: John Horner MD [Physician] - (see Dr Horner in 2-3 weeks; diagnosis - paroxysmal a.fib) Armando Pablo MD, FACS [Physician] - (see Dr Pablo, general surgery, in 2 weeks for wound check) Rolando Hartmann III, MD [Physician] - (see Dr Hartmann in 4-6 weeks; diagnosis - TIA) Madyson Rodríguez MD [Primary Care Provider] - (see Dr Rodríguez within 1 week of discharge from [facility]) Oswald Koroam DO [Physician] - ([facility] Dr [facility], if possible for wound check.) Diet: Regular Diet Texture: Dental soft (bite-sized) Addtl Provider Instructions: From Trevor Cardoso hospitalist - You were admitted after a CAT scan of the abdomen and pelvis showed a large fluid collection in the abdominal cavity. It was initially felt to be a hematoma as a result of a prior fall. However, within a short period of time after admission, there was high concern that this fluid collection was infected. You were started on IV antibiotics. About custodial through your stay the fluid collection spontaneously drained through your abdominal wall. Large amounts of pus and blood came out. That same day Dr Armando Pablo from surgery took you to the operating room and drained the residual blood & pus. You have had a wound vac on the abdomen since that time. The wound has slowly started to heal with this. Your stay was complicated by a TIA event, anemia requiring multiple blood transfusions, and atrial fibrillation on 2 occasions. Recommendations - 1. continue antibiotics in the form of augmentin 875mg twice a day for at least 2 more weeks, possibly longer. 2. continue the wound vac per the wound care team's instructions. The wound dressings are due to be changed on March 05. 3. continue amiodarone 200mg once daily for your a.fib. 4. please obtain CBC, BMP, and magnesium level in 2 days for stability; results to medical chemist. 5. see follow-up section for follow-up recommendations. [facility] to [facility] if -- * you have fevers > 100.5 degrees * you have worsening abdominal pain * you have severe diarrhea * you have worsening redness or swelling of the skin on the abdominal wall * you experience chest pain, palpitations/rapid heart beating, or shortness of breath * any other concerns Prescriptions: New sennosides [Senokot] 8.6 mg Tablet 17.2 mg PO QAM Qty: 60 RF: 0 nystatin 100,000 unit/mL Suspension 5 ml PO QID 7 Days Qty: 150 RF: 0 amiodarone 200 mg Tablet 200 mg PO QAM Qty: 30 RF: 2 magnesium oxide 400 mg (241.3 mg magnesium) Tablet 400 mg PO BID Qty: 60 RF: 0 ferrous sulfate 325 mg (65 mg iron) Tablet,Delayed Release (Dr/Ec) 325 mg PO BID Qty: 60 RF: 2 amoxicillin-pot clavulanate 875-125 mg Tablet 1 tab PO BIDM 14 Days Qty: 28 RF: 0 hydrochlorothiazide 12.5 mg tablet 12.5 mg PO QAM Qty: 30 RF: 0 Continued clopidogrel [Plavix] 75 mg tablet 75 mg PO DAILY Qty: 90 RF: 3 omeprazole 20 mg tablet,delayed release (DR/EC) 20 mg PO DAILY Qty: 90 RF: 3 multivitamin Tablet 1 tab PO DAILY RF: 0 atorvastatin 20 mg Tablet 20 mg PO DAILY RF: 0 fluoxetine 10 mg Tablet 10 mg PO QAM RF: 0 metoprolol succinate 100 mg Tablet Extended Release 24 Hr 100 mg PO DAILY RF: 0 calcium carbonate 300 mg (750 mg) Tablet,Chewable 300 mg PO BID RF: 0 amlodipine 10 mg Tablet 10 mg PO DAILY RF: 0 fluoxetine 20 mg Tablet 20 mg PO QPM RF: 0 Lactobacillus acidophilus [Acidophilus] Capsule 100 mg PO DAILY RF: 0 albuterol sulfate [Ventolin HFA] 90 mcg/actuation Hfa Aerosol Inhaler 1 - 2 puff INHALATION Q4 PRN (Reason: Shortness Of Breath Or Wheezing) RF: 0 potassium chloride 10 mEq Tablet,Er Particles/Crystals 10 meq PO DAILY RF: 0 cholecalciferol (vitamin D3) [Vitamin D3] 2,000 unit Capsule 2,000 unit PO DAILY RF: 0 omega 8-hoh-vms-fish oil [Fish Oil] 1,000 mg (120 mg-180 mg) Capsule 1 cap PO DAILY RF: 0 Breo Ellipta 100-25 mcg/dose Blister With Device 1 inh INHALATION DAILY RF: 0 levothyroxine 25 mcg tablet 25 mcg PO DAILY RF: 0 Discontinued lisinopril 40 mg tablet 40 mg PO DAILY Qty: 90 RF: 3 triamterene-hydrochlorothiazid 37.5-25 mg Tablet 1 tab PO DAILY RF: 0 Stand-Alone Forms: [facility] Discharge Orders: Discharge Order (Routine); Ordered 03/02/19 Ordered By: Trevor Cardoso Skilled Items Patient informed of condition?: Yes DNR: No Discharge Level of Care: Acute rehab Communicable Disease: No Discharge Prognosis: Stable Admission Data Admit Date/Time: 02/06/19 19:29 Attending Provider: Trevor Cardoso Admit Provider: Delmi Diaz Primary Care Provider: Madyson Rodríguez Other Providers: Trevor Cardoso ; Delmi Diaz ; Rolando Hartmann III ; Steffi Sr ; Shahbaz Fisher ; Kaleigh Martínez ; Dinh Augustine ; Courtney Foote ; sOwald Koroma ; Ry Ortiz ; Dinh Venegas Service: Intensive Care Unit Other Interventions: Discharge Summary Assessment (RN) Last Done: 03/02/19 18:46 Pending Studies at Discharge: No DC Date/Time DO NOT enter until pt leaves facility: 03/02/19 19:21
== END 2019-03-02 19:21 | DRG 579 ==
LOC: ED 13:28 → 2N 19:29 → SUATTDRO 19:29 → 2N 20:08 → 3W 02-13 16:10 → 2N 02-15 02:06 → 1E 02-18 11:24 → 3N 02-20 11:16 → 2E 02-27 12:41

== ENCOUNTER 2019-03-18 07:59 | Inpatient (IN) ==
[2019-03-18] MEDS ORDERED: ALBUT/IPRATROP 3MG/0.5MG NEB 3 ML VIAL INH STA (08:07)
[2019-03-18] MEDS ORDERED: methylPREDNISolone 125 MG/2 ML VIAL IV STA ×2 (08:07→10:00)
[2019-03-18 08:36] LABS: Hemoglobin 8.8 g/dL (12.0-16.0); Mean Corpuscular Hemoglobin 28.2 pg (25-34); Mean Corpuscular Hgb Conc 31.4 g/dL (32-36); Mean Corpuscular Volume 89.7 fL (80-100); Mean Platelet Volume 7.7 fL (7.4-10.4); Platelet Count 433 K/uL (130-400); Red Blood Count 3.12 M/uL (4.2-5.4); White Blood Count 16.69 K/uL (4.8-10.8)
[2019-03-18 08:47] LABS: INR 1.1 (0.9-1.1); Partial Thromboplastin Ratio 0.9; Partial Thromboplastin Time 25.3 Seconds (21.0-31.0); Prothrombin Time 11.5 Seconds (9.0-12.0)
[2019-03-18 08:56] LABS: Alanine Aminotransferase 42 U/L (12-78); Albumin Level 2.3 gm/dl (3.4-5.0); Aspartate Aminotransferase 32 U/L (15-37); Blood Urea Nitrogen 19 mg/dl (7-18); Carbon Dioxide 27 mmol/L (21-32); Chloride 110 mmol/L (98-107); Creatinine Clr Calc Pharmacy 47.2 ml/min; Est GFR (African American) 75.7; Est GFR (Non-African American) 65.3; Glucose 101 mg/dl (70-99); Potassium 4.1 mmol/L (3.5-5.1); Sodium 142 mmol/L (136-145)
[2019-03-18 08:59] LABS: Basophils # (auto) 0.07 K/uL (0-0.2); Basophils % (auto) 0.4 %; Eosinophils # (auto) 1.58 K/uL (0-0.5); Eosinophils % (auto) 9.5 %; Immature Granulocytes # (auto) 0.08 K/uL (0.00-0.02); Immature Granulocytes % (auto) 0.5 %; Lymphocytes # (auto) 0.93 K/uL (1.2-3.4); Lymphocytes % (auto) 5.6 %; Monocytes # (auto) 0.66 K/uL (0.11-0.59); Neutrophils # (auto) 13.37 K/uL (1.4-6.5)
[2019-03-18 09:01] LABS: Albumin Globulin Ratio 0.5 (0.9-2); Alkaline Phosphatase 103 U/L (45-117); Bilirubin,Total 0.4 mg/dl (0.2-1); Globulin 4.6 gm/dl (2.5-4.0); NT Pro B Type Natriuretic Pept 8402 pg/ml (0-1800); Total Protein 6.9 gm/dl (6.4-8.2); Troponin I < 0.015 ng/ml (0-0.045)
--- NOTE | 2019-03-18 09:08 | XRay Report ---
XR chest 1V portable HISTORY: 88 years-old Female Dyspnea acute shortness of breath COMPARISON: CT abdomen and pelvis 02/27/2019, acute abdominal series radiographs 12/22/2017 TECHNIQUE: Portable AP view of the chest FINDINGS: Cardiac silhouette is enlarged. Pulmonary vascular congestion with interstitial coarsening. Alveolar perihilar and bibasilar opacities are noted with small pleural effusions. No pneumothorax. Calcified plaque the thoracic aorta. Degenerative changes of the shoulders and spine. IMPRESSION: 1. Cardiomegaly with pulmonary edema. 2. Small pleural effusions with perihilar and bibasilar airspace opacities are suggestive of alveolar edema with atelectasis. A superimposed pneumonitis would be impossible to exclude. The above report was generated using voice recognition software. It may contain grammatical, syntax o r spelling errors. Electronically signed by: Shay Yousif M.D. 03/18/2019 9:07 AM
[2019-03-18] MEDS ORDERED: FUROSEMIDE 20 MG in SYRINGE 0 ML IV ONE ×2 (09:13→18:45)
[2019-03-18] MEDS ORDERED: PIPERACILLIN/TAZOBACTAM 4.5 GM/120 ML BAG IV ONE (09:15)
[2019-03-18] MEDS ORDERED: PIPERACILL/TAZOBAC CONSULT ACTIVE PRN ×2 (09:15→11:23)
[2019-03-18] MEDS ORDERED: FUROSEMIDE 40 MG/4 ML VIAL IV ONE ×2 (09:37→10:22)
--- NOTE | 2019-03-18 09:37 | Emergency Department Note ---
Entered by Josey Gilmore acting as a scribe for Blair Green MD History of Present Illness General Chief complaint: Respiratory Problems Stated complaint: sob Time Seen by Provider: 03/18/19 08:01 Source: patient History of Present Illness Onset (ago): hour(s) 2 Location: chest Severity: similar to prior episodes Pain Consistency: + other (persistent ) Quality: + other (shortness of breath ) Associated symptoms: + other (negative sore throat ); no chest pain, no cough and no fever/chills The patient is a 88 year old female who presents to the Emergency Room with complaints of persistent shortness of breath that began at about 0600, about 2 hours prior to arrival. The patient states that she has a history of COPD, and states that this is similar to prior episodes of exacerbation of her COPD. She denies chest pain, fever, cough, and sore throat. The patient denies any falls in the past several days. Home Medications Home Medications Medication Instructions Recorded Confirmed Type Breo Ellipta 1 inh INHALATION QAM 12/26/18 03/18/19 History albuterol sulfate [Ventolin HFA] 1 - 2 puff INHALATION Q4 PRN 12/26/18 03/18/19 History amlodipine 10 mg PO QAM 12/26/18 03/18/19 History atorvastatin 20 mg PO HS 12/26/18 03/18/19 History calcium carbonate 300 mg PO BID 12/26/18 03/18/19 History cholecalciferol (vitamin D3) 2,000 unit PO QAM 12/26/18 03/18/19 History [Vitamin D3] fluoxetine 10 mg PO QAM 12/26/18 03/18/19 History fluoxetine 20 mg PO QPM 12/26/18 03/18/19 History metoprolol succinate 100 mg PO QAM 12/26/18 03/18/19 History multivitamin 1 tab PO PM 12/26/18 03/18/19 History omega [id number]-[id number]-fish oil [Fish Oil] 1 cap PO QAM 12/26/18 03/18/19 History potassium chloride 10 meq PO QAM 12/26/18 03/18/19 History levothyroxine 25 mcg PO HS 02/06/19 03/18/19 History amiodarone 200 mg PO QAM #30 tab 03/02/19 03/18/19 Rx ferrous sulfate 325 mg PO BID #60 tab 03/02/19 03/18/19 Rx magnesium oxide 400 mg PO BID #60 tab 03/02/19 03/18/19 Rx acetaminophen 500 mg capsule 500 mg PO Q4H PRN MDD 6 tablets in 03/05/19 03/18/19 History 24 hours docusate sodium 100 mg capsule 100 mg PO BID 03/05/19 03/18/19 History Lactobacillus acidophilus capsule 100 mg PO QAM 03/16/19 03/18/19 History amoxicillin 875 mg-potassium 1 tab PO BID #60 tab 03/16/19 03/18/19 Rx clavulanate 125 mg tablet omeprazole 20 mg capsule,delayed 20 mg PO QAM #90 cap 03/16/19 03/18/19 History release clopidogrel [Plavix] 75 mg PO QAM 03/18/19 03/18/19 History Allergies Allergy/AdvReac Type Severity Reaction Status Date / Time oxycodone Allergy Mild RASH Verified 03/18/19 08:45 alendronate sodium Allergy Unknown [facility] L[facility] Verified 03/18/19 08:45 Bactrim Allergy Unknown [facility] L[facility] Verified 02/07/18 04:16 cefuroxime Allergy Unknown UNKNOWN ON Verified 03/18/19 08:45 LIST Cipro Allergy Unknown Unknown Verified 02/07/18 21:42 ciprofloxacin Allergy Unknown UNKNOWN ON Verified 03/18/19 08:45 LIST codeine Allergy Unknown UNKNOWN ON Verified 03/18/19 08:45 LIST gabapentin Allergy Unknown UNKNOWN ON Verified 03/18/19 08:45 LIST meperidine Allergy Unknown UNKNOWN ON Verified 03/18/19 08:45 LIST propoxyphene Allergy Unknown UNKNOWN ON Verified 03/18/19 08:45 LIST Sulfa (Sulfonamide Allergy Unknown UNKNOWN ON Verified 03/18/19 08:45 Antibiotics) LIST sulfamethoxazole Allergy Unknown [facility] L[facility] Verified 03/18/19 08:45 trimethoprim Allergy Unknown [facility] L[facility] Verified 03/18/19 08:45 amphetamine AdvReac Severe UNKNOWN ON Verified 03/18/19 08:45 LIST dextroamphetamine AdvReac Severe UNKNOWN ON Verified 03/18/19 08:45 LIST hydrochlorothiazide AdvReac Intermediate GI DISTRESS Verified 03/18/19 08:45 methyldopa AdvReac Intermediate GI DISTRESS Verified 03/18/19 08:45 Past Med/Surg History Medical History A-fib (Chronic) Abscess of abdominal wall (Chronic) Chronic kidney disease, stage 3a (Chronic) Metabolic encephalopathy (Resolved) Tremor (Chronic) Abdomen enlarged (Chronic) Vertigo (Resolved) Transient ischemic attack (Resolved) Obstructive sleep apnea, adult (Chronic) Hypothyroidism (Chronic) Hyperlipidemia (Chronic) Depression (Chronic) Chronic cerebral ischemia (Resolved) Chronic asthmatic bronchitis (Chronic) CAD (coronary artery disease) (Chronic) Asthma (Chronic) HTN (hypertension) (Chronic) COPD (chronic obstructive pulmonary disease) (Chronic) Surgical History S/P cholecystectomy (Resolved) S/P hernia repair (Resolved) S/P hysterectomy (Resolved) Family History Mother , age 86 of an [place]. She also had COPD. Myocardial infarction COPD (chronic obstructive pulmonary disease) Father , age 47 of an [place]. 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 Other Information That Helps Us Care for You: No Feels Safe at Home: Yes Safety Concerns: Feels Safe At This Time Smoking Status: Never smoker Do You Dip or Chew Tobacco: No ; Hx Alcohol Use: No Hx Substance Use: No Childhood Exposure to Second-Hand Smoke: No Review of Systems See HPI for pertinent positives & negatives. and A total of 10 systems reviewed and were otherwise negative Physical Exam Vital Signs Vital Signs - 24 hr 03/18/19 08:00 03/18/19 08:14 03/18/19 08:50 Temperature 36.4 C L Temperature Source Oral Sepsis Recent Fever Within 48 Hours No Sepsis New/Unexplained Change in Mental Status No Sepsis Action Taken by Nursing No Action Required Pulse Rate 74 Pulse Rate [Finger] 72 Respiratory Rate 26 H 22 20 Respiratory Effort / Characteristics Spontaneous Respiratory Depth Respiratory Pattern Blood Pressure 145/73 H Blood Pressure [Right Arm] 155/89 H Blood Pressure Mean 97 Blood Pressure Mean [Right Arm] 111 Pulse Oximetry 96 95 100 Oxygen Delivery Method Nasal Cannula Nasal Cannula Nebulizer Oxygen Flow Rate 2 2 Fraction of Inspired Oxygen 03/18/19 09:16 03/18/19 09:43 03/18/19 09:48 Temperature Temperature Source Sepsis Recent Fever Within 48 Hours Sepsis New/Unexplained Change in Mental Status Sepsis Action Taken by Nursing Pulse Rate 82 Pulse Rate [Finger] 75 84 Respiratory Rate 22 24 26 H Respiratory Effort / Characteristics Spontaneous Respiratory Depth Normal Respiratory Pattern Regular Blood Pressure Blood Pressure [Right Arm] 120/42 L 112/84 Blood Pressure Mean Blood Pressure Mean [Right Arm] 68 93 Pulse Oximetry 100 99 98 Oxygen Delivery Method Nasal Cannula Nasal Cannula Oxygen Flow Rate 3 3 Fraction of Inspired Oxygen 30 03/18/19 10:07 03/18/19 10:12 Temperature Temperature Source Sepsis Recent Fever Within 48 Hours Sepsis New/Unexplained Change in Mental Status Sepsis Action Taken by Nursing Pulse Rate Pulse Rate [Finger] 80 Respiratory Rate 24 26 H Respiratory Effort / Characteristics Non-Labored Respiratory Depth Respiratory Pattern Blood Pressure Blood Pressure [Right Arm] 131/72 Blood Pressure Mean Blood Pressure Mean [Right Arm] 91 Pulse Oximetry 96 97 Oxygen Delivery Method BiPAP BiPAP Oxygen Flow Rate Fraction of Inspired Oxygen 30 General: Moderately-ill appearing older female in no acute distress. Audible wheezes. HEENT: Normal cephalic atraumatic. Pupils are equal round and reactive to light. Extraocular movements are intact. Oropharynx is pink with moist mucous membranes. No swelling of the mouth lips or tongue. Neck: Supple with a midline trachea. No meningeal signs or stiffness, no JVD or bruits. No Stridor. Chest: Audible wheezes. Moderately tachypneic. Crackles in the bilateral bases. Heart: regular rate and rhythm. Abdomen: Intact wound vac without tenderness or redness. Soft nontender, nondistended without rebound guarding or rigidity. Extremities: No cyanosis clubbing or edema. No calf tenderness or asymmetry Spine/Back. Non tender to palpation. No CVA tenderness Skin: Good turgor without rashes. Neurologic exam: Cranial nerves two through 12 are intact. Motor and sensation are intact and symmetrical throughout. Course 0803: Past medical records reviewed. The patient was evaluated in room B7. A complete history and physical exam was performed. 0858: [facility] states that [facility] to further evaluate the patient. 0933: Upon reevaluation, the patient is still tachypneic appearing, however she states that she is feeling better. Respiratory is beginning bipap and blood cultures are being drawn on the patient. 1014: The patient is currently on bipap but looks better. [facility] evaluating the patient. Administered Medications Amiodarone HCl (Cordarone) 200 mg PO QAM [facility] Stop: 04/18/19 08:59 Last Admin: 03/18/19 13:17 Dose: 200 mg Documented by: [id number] Calcium Carbonate (Os-Jamison 500) 1,250 mg PO BID [facility] Stop: 04/17/19 20:59 Last Admin: 03/18/19 13:21 Dose: 1,250 mg Documented by: [id number] Clopidogrel Bisulfate (Plavix) 75 mg PO QAM [facility] Stop: 04/18/19 08:59 Last Admin: 03/18/19 13:22 Dose: 75 mg Documented by: [id number] Docusate Sodium (Colace) 100 mg PO BID [facility] Stop: 04/17/19 20:59 Last Admin: 03/18/19 13:18 Dose: 100 mg Documented by: [id number] Fluoxetine HCl (Prozac) 10 mg PO QAM [facility] Stop: 04/18/19 08:59 Last Admin: 03/18/19 13:22 Dose: 10 mg Documented by: [id number] Ranitidine HCl 50 mg/ Dextrose 102 mls @ 200 mls/hr IV Q8H ROD Stop: 04/17/19 11:59 Last Infusion: 03/18/19 12:30 Dose: 0 mls/hr Documented by: [id number] Admin: 03/18/19 11:56 Dose: 200 mls/hr Documented by: [id number] Magnesium Oxide (Mag-Ox) 400 mg PO BID ROD Stop: 04/17/19 20:59 Last Admin: 03/18/19 13:20 Dose: 400 mg Documented by: [id number] Metoprolol Succinate (Toprol Xl) 100 mg PO QAM [facility] Stop: 04/18/19 08:59 Last Admin: 03/18/19 13:22 Dose: 100 mg Documented by: [id number] Potassium Chloride (Klor-Con M10) 10 meq PO QAM ROD Stop: 04/18/19 08:59 Last Admin: 03/18/19 13:21 Dose: 10 meq Documented by: [id number] Vitamin D (Vitamin D3) 2,000 units PO QAM ROD Stop: 04/18/19 08:59 Last Admin: 03/18/19 13:23 Dose: 2,000 units Documented by: [id number] Discontinued Medications Albuterol (Duoneb) 12 ml INH ONE STA Stop: 03/18/19 08:08 Last Admin: 03/18/19 08:11 Dose: 12 ml Documented by: [id number] Albuterol (Duoneb) 3 ml NEB NOW STA Stop: 03/18/19 10:01 Last Admin: 03/18/19 10:11 Dose: 3 ml Documented by: [id number] Furosemide (Lasix) Confirm Administered Dose 40 mg IV .STK-MED ONE Stop: 03/18/19 09:38 Last Admin: 03/18/19 09:40 Dose: 20 mg Documented by: [id number] Furosemide (Lasix) Confirm Administered Dose 40 mg IV .STK-MED ONE Stop: 03/18/19 10:23 Last Admin: 03/18/19 10:25 Dose: 20 mg Documented by: [id number] Furosemide 20 mg/ Syringe 2 mls @ 4 mls/min IV ONE ONE Stop: 03/18/19 09:14 Last Admin: 03/18/19 09:40 Dose: Not Given Documented by: [id number] Piperacillin Sod/Tazobactam Sod (Zosyn) 4.5 gm in 120 mls @ 240 mls/hr IV NOW ONE Stop: 03/18/19 09:44 Last Infusion: 03/18/19 10:09 Dose: 0 mls/hr Documented by: [id number] Admin: 03/18/19 09:39 Dose: 240 mls/hr Documented by: [id number] Furosemide 20 mg/ Syringe 2 mls @ 4 mls/min IV ONE STA Stop: 03/18/19 10:00 Last Admin: 03/18/19 10:51 Dose: Not Given Documented by: [id number] Methylprednisolone (Solumedrol) 125 mg IV NOW STA Stop: 03/18/19 08:08 Last Admin: 03/18/19 08:40 Dose: 125 mg Documented by: [id number] Methylprednisolone (Solumedrol) 60 mg IV NOW STA Stop: 03/18/19 10:01 Last Admin: 03/18/19 10:24 Dose: Not Given Documented by: [id number] Medical Decision Making Differential Diagnosis Differential diagnoses include COPD, CHF, pneumonia, sepsis, amiodarone toxicity, electrolyte or metabolic abnormality, and others were considered. Medical Records Attestation: I reviewed the patient's medical records. Home Medications Current Medication List: was personally reviewed by me Laboratory Data Attestation: I reviewed the patient's lab results. Result diagrams: 03/18/19 08:24 03/18/19 08:24 Lab Results 03/18/19 03/18/19 03/18/19 Range/Units 08:24 08:24 08:24 WBC 16.69 H (4.8-10.8) K/uL RBC 3.12 L (4.2-5.4) M/uL Hgb 8.8 L (12.0-16.0) g/dL Hct 28.0 L (37-47) % MCV 89.7 (80-100) fL MCH 28.2 (25-34) pg MCHC 31.4 L (32-36) g/dL RDW Std Deviation 55.0 H (36.4-46.3) fL RDW Coeff of Elliot 17.0 H (11.5-14.5) % Plt Count 433 H (130-400) K/uL MPV 7.7 (7.4-10.4) fL Immature Gran % (Auto) 0.5 % Neut % (Auto) 80.0 % Lymph % (Auto) 5.6 % [place] % (Auto) 4.0 % Eos % (Auto) 9.5 % Baso % (Auto) 0.4 % Immature Gran # (Auto) 0.08 H (0.00-0.02) K/uL Neut # (Auto) 13.37 H (1.4-6.5) K/uL Lymph # (Auto) 0.93 L (1.2-3.4) K/uL [place] # (Auto) 0.66 H (0.11-0.59) K/uL Eos # (Auto) 1.58 H (0-0.5) K/uL Baso # (Auto) 0.07 (0-0.2) K/uL PT 11.5 (9.0-12.0) Seconds INR 1.1 (0.9-1.1) APTT 25.3 (21.0-31.0) Seconds PTT Ratio 0.9 Sodium 142 (136-145) mmol/L Potassium 4.1 (3.5-5.1) mmol/L Chloride 110 H (98-107) mmol/L Carbon Dioxide 27 (21-32) mmol/L Anion Gap 5.0 (3-11) BUN 19 H (7-18) mg/dl Creatinine 0.81 (0.6-1.2) mg/dl Est Cr Clr Drug Dosing 47.2 ml/min Est GFR ( Amer) 75.7 Est GFR (Non-Af Amer) 65.3 BUN/Creatinine Ratio 23.0 H (10-20) Glucose 101 H (70-99) mg/dl Lactate (0.4-2.0) mmol/L Calcium 9.0 (8.5-10.1) mg/dl Total Bilirubin 0.4 (0.2-1) mg/dl AST 32 (15-37) U/L ALT 42 (12-78) U/L Alkaline Phosphatase 103 (45-117) U/L Troponin I < 0.015 (0-0.045) ng/ml NT-Pro-B Natriuret Pep 8402 H (0-1800) pg/ml Total Protein 6.9 (6.4-8.2) gm/dl Albumin 2.3 L (3.4-5.0) gm/dl Globulin 4.6 H (2.5-4.0) gm/dl Albumin/Globulin Ratio 0.5 L (0.9-2) Procalcitonin (0-0.5) ng/ml TSH (0.300-4.500) uIu/ml 03/18/19 03/18/19 03/18/19 Range/Units 08:24 08:24 08:24 WBC (4.8-10.8) K/uL RBC (4.2-5.4) M/uL Hgb (12.0-16.0) g/dL Hct (37-47) % MCV (80-100) fL MCH (25-34) pg MCHC (32-36) g/dL RDW Std Deviation (36.4-46.3) fL RDW Coeff of Elliot (11.5-14.5) % Plt Count (130-400) K/uL MPV (7.4-10.4) fL Immature Gran % (Auto) % Neut % (Auto) % Lymph % (Auto) % [place] % (Auto) % Eos % (Auto) % Baso % (Auto) % Immature Gran # (Auto) (0.00-0.02) K/uL Neut # (Auto) (1.4-6.5) K/uL Lymph # (Auto) (1.2-3.4) K/uL [place] # (Auto) (0.11-0.59) K/uL Eos # (Auto) (0-0.5) K/uL Baso # (Auto) (0-0.2) K/uL PT (9.0-12.0) Seconds INR (0.9-1.1) APTT (21.0-31.0) Seconds PTT Ratio Sodium (136-145) mmol/L Potassium (3.5-5.1) mmol/L Chloride (98-107) mmol/L Carbon Dioxide (21-32) mmol/L Anion Gap (3-11) BUN (7-18) mg/dl Creatinine (0.6-1.2) mg/dl Est Cr Clr Drug Dosing ml/min Est GFR ( Amer) Est GFR (Non-Af Amer) BUN/Creatinine Ratio (10-20) Glucose (70-99) mg/dl Lactate (0.4-2.0) mmol/L Calcium (8.5-10.1) mg/dl Total Bilirubin (0.2-1) mg/dl AST (15-37) U/L ALT (12-78) U/L Alkaline Phosphatase (45-117) U/L Troponin I Cancelled (0-0.045) ng/ml NT-Pro-B Natriuret Pep Cancelled (0-1800) pg/ml Total Protein (6.4-8.2) gm/dl Albumin (3.4-5.0) gm/dl Globulin (2.5-4.0) gm/dl Albumin/Globulin Ratio (0.9-2) Procalcitonin 0.05 (0-0.5) ng/ml TSH 7.660 H (0.300-4.500) uIu/ml 03/18/19 Range/Units 09:38 WBC (4.8-10.8) K/uL RBC (4.2-5.4) M/uL Hgb (12.0-16.0) g/dL Hct (37-47) % MCV (80-100) fL MCH (25-34) pg MCHC (32-36) g/dL RDW Std Deviation (36.4-46.3) fL RDW Coeff of Elliot (11.5-14.5) % Plt Count (130-400) K/uL MPV (7.4-10.4) fL Immature Gran % (Auto) % Neut % (Auto) % Lymph % (Auto) % [place] % (Auto) % Eos % (Auto) % Baso % (Auto) % Immature Gran # (Auto) (0.00-0.02) K/uL Neut # (Auto) (1.4-6.5) K/uL Lymph # (Auto) (1.2-3.4) K/uL [place] # (Auto) (0.11-0.59) K/uL Eos # (Auto) (0-0.5) K/uL Baso # (Auto) (0-0.2) K/uL PT (9.0-12.0) Seconds INR (0.9-1.1) APTT (21.0-31.0) Seconds PTT Ratio Sodium (136-145) mmol/L Potassium (3.5-5.1) mmol/L Chloride (98-107) mmol/L Carbon Dioxide (21-32) mmol/L Anion Gap (3-11) BUN (7-18) mg/dl Creatinine (0.6-1.2) mg/dl Est Cr Clr Drug Dosing ml/min Est GFR ( Amer) Est GFR (Non-Af Amer) BUN/Creatinine Ratio (10-20) Glucose (70-99) mg/dl Lactate 1.2 (0.4-2.0) mmol/L Calcium (8.5-10.1) mg/dl Total Bilirubin (0.2-1) mg/dl AST (15-37) U/L ALT (12-78) U/L Alkaline Phosphatase (45-117) U/L Troponin I (0-0.045) ng/ml NT-Pro-B Natriuret Pep (0-1800) pg/ml Total Protein (6.4-8.2) gm/dl Albumin (3.4-5.0) gm/dl Globulin (2.5-4.0) gm/dl Albumin/Globulin Ratio (0.9-2) Procalcitonin (0-0.5) ng/ml TSH (0.300-4.500) uIu/ml Imaging Data Radiologist's Impression: Radiology results as stated below per my review and the radiologist's interpretation: XR chest 1V portable HISTORY: 88 years-old Female Dyspnea acute shortness of breath COMPARISON: CT abdomen and pelvis 02/27/2019, acute abdominal series radiographs 12/22/2017 TECHNIQUE: Portable AP view of the chest FINDINGS: Cardiac silhouette is enlarged. Pulmonary vascular congestion with interstitial coarsening. Alveolar perihilar and bibasilar opacities are noted with small pleural effusions. No pneumothorax. Calcified plaque the thoracic aorta. Degenerative changes of the shoulders and spine. IMPRESSION: 1. Cardiomegaly with pulmonary edema. 2. Small pleural effusions with perihilar and bibasilar airspace opacities are suggestive of alveolar edema with atelectasis. A superimposed pneumonitis would be impossible to exclude. The above report was generated using voice recognition software. It may contain grammatical, syntax or spelling errors. Electronically signed by: Shay Yousif M.D. 03/18/2019 9:07 AM ECG Data Attestation: I personally reviewed and interpreted this ECG as follows: Indication: SOB/dyspnea Rate (beats per minute): 70 Rhythm: normal sinus Findings: + other (poor baseline); no acute ischemic change Comparison ECG Date: from (02/15/2019) Change: the following changes noted (normal sinus rhythm has replaced Afib) Blood Pressure Blood Pressure Findings: Normal blood pressure MDM Narrative This patient comes in as described above. She was placed in room B7. She comes in after feeling short of breath. She has audible wheezes. She does have history of COPD among other medical problems. She has been in the hospital recently where she was treated for A. fib as well as had abdominal hematoma and currently has a wound VAC. She was in rehab but went home the last couple days. IV access established and blood work was obtained. She was given hour-long DuoNeb as well as IV steroids. With this she seemed to be feeling better but still had some wheezing and tachypnea although diminished compared to presentation. Because of her ongoing symptoms, I did start her on BiPAP. Her chest x-ray does show CHF with possible infiltrate as well. In light of this, I did order blood cultures and lactic acid as well. she is afebrile and I covered this with Zosyn 4.5 g IV and she has had this antibiotic before and has multiple allergies but has done well with this. She was also given Lasix 20 mg IV. She is on amiodarone is possible this could be related to amiodarone toxicity however she has only been on 2 weeks so therefore I think it is a lot less likely but still in the differential. At this point, she appears to have conge stive heart failure and may have COPD exacerbation on top of it and potentially infection/pneumonia. I do think she needs to be admitted for further inpatient treatment and evaluation. We have consulted the [facility] group and there had Dr. Johnson come see her in the ER. Impression & Plan CHF (congestive heart failure), Shortness of breath, Pneumonia, COPD (chronic obstructive pulmonary disease) Critical Care Time Critical Care Time: Yes Total Critical Care Time: 45 I have personally spent 45 minutes of critical care time in the direct management of this patient. This includes bedside care, interpretation of diagnostic studies, and testing, discussion with consultants, patient, and family members, and other required patient management activities. This 45 minutes is in excess of all separately billable procedures. Discharge Plan Visit Data *Final* Discharge Date/Time: 03/18/19 11:03 Chief Complaint: Respiratory Problems Stated Complaint: sob ED Provider: Blair Green Discharge Problem: CHF (congestive heart failure), Shortness of breath, Pneumonia, COPD (chronic obstructive pulmonary disease) Patient Disposition: Admitted As Inpatient Discharge Instructions Interventions: ED Discharge Assessment Last Done: 03/18/19 11:03 Discharge Problem: CHF (congestive heart failure) Qualifiers: Heart failure type: unspecified Heart failure chronicity: acute Qualified Code(s): I50.9 - Heart failure, unspecified Pneumonia Qualifiers: Pneumonia type: due to unspecified organism Laterality: right Lung location: lower lobe of lung Qualified Code(s): J18.1 - Lobar pneumonia, unspecified organism COPD (chronic obstructive pulmonary disease) Qualifiers: COPD type: COPD with acute exacerbation Qualified Code(s): J44.1 - Chronic obstructive pulmonary disease with (acute) exacerbation The scribe's documentation has been prepared under my direction and personally reviewed by me in its entirety. I confirm that the note above accurately reflects all work, treatment, procedures, and medical decision making performed by me.
[2019-03-18 09:53] LABS: Base Excess VBG -0.9 mEq/L; Oxygen Saturation VBG 61.9 %; pH VBG 7.36 (7.36-7.41)
[2019-03-18] MEDS ORDERED: FUROSEMIDE 20 MG in SYRINGE 0 ML IV STA (09:59)
[2019-03-18] MEDS ORDERED: ALBUT/IPRATROP 3MG/0.5MG NEB 3 ML VIAL NEB STA (10:00)
--- NOTE | 2019-03-18 10:02 | History & Physical Report ---
Date of Service March 18, 2019 Assessment & Plan (1) Acute respiratory failure with hypoxia: Chest x-ray shows mixed alveolar and interstitial infiltrates. There are exam findings consistent with acute CHF (echo in February showed preserved EF thus this is likely diastolic in nature). I cannot rule out pneumonia - certainly has multiple risk factors for such including choking spell on Tuesday evening, recent prolonged hospital stay, rehab stay, etc. She has associated leukocytosis. Doubt pulmonary toxicity from amiodarone - this was initiated on 02/27/19 - I have not seen toxicity develop that fast. Asthma/COPD exacerbation is possible as well. Antibiotics including gram negative/anaerobe coverage; steroids/nebs; IV lasix. Repeat cxr in am. MRSA nasal swab -- if negative defer on MRSA coverage. Continue BIPAP - wean to NC O2 as tolerated. Present on Admission?: Yes (2) CHF (congestive heart failure): Echo 02/12/19 with preserved EF. Possible etiologies for her decompensated diastolic CHF -- uncontrolled a.fib, lack of diuretic (was on HCTZ when she left [facility]; it was apparently d/c while at rehab), dietary issues, etc. No evidence of ischemia. Symptoms gradually worsened over 1-2 weeks. Shortly after admission to the telemetry unit she had PAF then converted back to NSR. If she has frequent runs of uncontrolled a.fib consider restarting an amiodarone drip with bolus. Continue beta david (metoprolol succinate 100mg daily). Will give additional dose of IV lasix tonight, then 20mg IV BID starting in AM. Strict I's and O's. Daily weights. Will also ask her primary door to door lead generation, Dr Horner, to consult tomorrow. Present on Admission?: Yes (3) Pneumonia: Possible. Bilateral. Zosyn started in ER - will continue for gram negative coverage and anaerobe coverage. Doxycycline IV BID for atypical coverage. Defer on MRSA coverage as MRSA CONTINUOUS IMPROVEMENT CONSULTANT swab is negative. Repeat cxr in am. Follow blood cultures. Supportive care, BIPAP/NC O2, etc. Present on Admission?: Yes (4) Asthma: Wheezing may be due to pulmonary edema rather than her asthma. Given the severity of her illness, however, will employ IV steroids for now along with her Breo and scheduled nebs in the event some of her symptoms/signs are from asthma. BIPAP for now. Wean to NC O2 as tolerated. Present on Admission?: Yes (5) A-fib: During her previous prolonged hospitalization she had 2 episodes of PAF with one lasting over 24 hours. She may be having runs of PAF outside the hospital. She does not have symptoms from such. After admission to tele unit she had a PAF run. If PAF episodes are frequent consider restarting amiodarone infusion w/ bolus. Continue oral amiodarone for now. During prior hospital stay she was significantly anemic due to bleeding from her intra-abdominal hematoma; thus anticoagulation was deferred. Will continue to defer on such. I doubt pulmonary toxicity from amiodarone; theoretically possible but unlikely given that it would be very early after it was initiated (<2 weeks). Present on Admission?: Yes (6) CAD (coronary artery disease): History of such. Years ago told she may have had an AK. But no cath available to substantiate actual CAD. Troponin is negative; will run serial troponins to be complete. (7) Chronic kidney disease, stage 3a: Cr stable today. BMP in am. Present on Admission?: Yes (8) HTN (hypertension): Cont home medications. Present on Admission?: Yes (9) Hyperlipidemia: (10) Hypothyroidism: TSH mildly elevated. Takes synthroid 25mcg daily. Consider increasing to 50mcg daily. (11) Obstructive sleep apnea, adult: Family asked to bring CPAP unit from home for night-time use. Present on Admission?: Yes (12) Traumatic hematoma of abdominal wall with infection: Had spontaneous rupture of large intra-abdominal hematoma in February during her prolonged stay. The hematoma was due to a prior fall. Following rupture Dr Pablo performed I/D in the OR. Cultures showed e.coli. She has been on augmentin since. The abdominal wound is getting smaller with use of Wound Vac. It is changed M/W/F. Wound care clinic follows this. Will consult the wound care nurse. Present on Admission?: Yes (13) Anemia: Hemoglobin is just shy of her prior baseline. Previous work-up showed the anemia was likely due to bleeding from the intra- abdominal hematoma and also anemia of chronic disease. Continue ferrous sulfate. CBC in am. (14) Transient ischemic attack: Had TIA during prior admission. Also with h/o CVA many years ago. On plavix for secondary prevention. Ideally should be on anticoagulation because of PAF but this has been deferred -- see discussion above. Present on Admission?: No (15) DVT prophylaxis: if H/H remain stable would add chemical DVT proph tomorrow family extensively updated multiple times today time 80 minutes History of Present Illness Chief Complaint: shortness of breath Primary Care Provider: Madyson Rodríguez MD Pleasant 88yo female - well known to me from her recent prolonged hospitalization at [facility] from 02/06 to 03/02 due to an infected intra- abdominal hematoma requiring I/D - who presents from home with worsening cough and shortness of breath. During her previous stay she had a very large hematoma in the abdominal cavity that occurred as a result of trauma from a fall. This hematoma became secondarily infected. She required copious amounts of IV antibiotics. The hematoma ultimately spontaneously erupted through the anterior abdominal wall exuding purulent material and old blood. That same day she went to the OR with Dr Armando Pablo who performed additional I/D of the infected hematoma/abscess. Post-operatively she had wound vac placed, was transitioned to oral augmentin, and finally was discharged to [facility]. She spent about 10-14 days at [facility] rehabbing and was discharged there on 03/15/19. Family reports that during her first week at [facility] she may have had a mild cough and she was starting to use her albuterol inhaler more frequently. During the 2nd week, however, her cough and dyspnea worsened. Despite such she was able to carry on with her therapies and did well. Appetite has been good and she has had no fevers/chills. Upon arrival home the family noted her dyspnea was worse. Then, on Tuesday night while eating a chicken dinner, she choked on a piece of chicken. The cough, wheezing, and dyspnea worsened again on Tuesday. Prior to this there had been no orthopnea or PND. Last night, however, her symptoms became quite severe with significant orthopnea, increased work of breathing, and wheezing starting about 0600. 911 was called and EMS was summoned to her home; she was ultimately brought to the [facility] ER. Upon arrival she was in significant respiratory distress with retractions & increased work of breathing. ER course - NC O2, then BIPAP 10/5. Hour-long duoneb, followed by an additional duoneb. Lasix 40mg IV x 1. Solumedrol 125mg IV x 1. Zosyn x 1. With above measures the patient's respiratory status improved but she still required BIPAP upon admission. Lastly, the daughter astutely recalls that there were several times during vital sign checks at [facility] that her mother's pulse was >100 then would return to the 60s. Patient reports her abdominal wall wound has been healing nicely and has been getting smaller. The wound vac is due to be changed on 03/19/19. She has been seeing [facility]. Allergies Allergy/AdvReac Type Severity Reaction Status Date / Time oxycodone Allergy Mild RASH Verified 03/18/19 08:45 alendronate sodium Allergy Unknown [facility] LIST Verified 03/18/19 08:45 Bactrim Allergy Unknown [facility] LIST Verified 02/07/18 04:16 cefuroxime Allergy Unknown UNKNOWN ON Verified 03/18/19 08:45 LIST Cipro Allergy Unknown Unknown Verified 02/07/18 21:42 ciprofloxacin Allergy Unknown UNKNOWN ON Verified 03/18/19 08:45 LIST codeine Allergy Unknown UNKNOWN ON Verified 03/18/19 08:45 LIST gabapentin Allergy Unknown UNKNOWN ON Verified 03/18/19 08:45 LIST meperidine Allergy Unknown UNKNOWN ON Verified 03/18/19 08:45 LIST propoxyphene Allergy Unknown UNKNOWN ON Verified 03/18/19 08:45 LIST Sulfa (Sulfonamide Allergy Unknown UNKNOWN ON Verified 03/18/19 08:45 Antibiotics) LIST sulfamethoxazole Allergy Unknown [facility] LIST Verified 03/18/19 08:45 trimethoprim Allergy Unknown [facility] LIST Verified 03/18/19 08:45 amphetamine AdvReac Severe UNKNOWN ON Verified 03/18/19 08:45 LIST dextroamphetamine AdvReac Severe UNKNOWN ON Verified 03/18/19 08:45 LIST hydrochlorothiazide AdvReac Intermediate GI DISTRESS Verified 03/18/19 08:45 methyldopa AdvReac Intermediate GI DISTRESS Verified 03/18/19 08:45 Home Medications Home Medications Medication Instructions Recorded Confirmed Type Breo Ellipta 1 inh INHALATION QAM 12/26/18 03/18/19 History albuterol sulfate [Ventolin HFA] 1 - 2 puff INHALATION Q4 PRN 12/26/18 03/18/19 History amlodipine 10 mg PO QAM 12/26/18 03/18/19 History atorvastatin 20 mg PO HS 12/26/18 03/18/19 History calcium carbonate 300 mg PO BID 12/26/18 03/18/19 History cholecalciferol (vitamin D3) 2,000 unit PO QAM 12/26/18 03/18/19 History [Vitamin D3] fluoxetine 10 mg PO QAM 12/26/18 03/18/19 History fluoxetine 20 mg PO QPM 12/26/18 03/18/19 History metoprolol succinate 100 mg PO QAM 12/26/18 03/18/19 History multivitamin 1 tab PO PM 12/26/18 03/18/19 History omega [id number] oil [Fish Oil] 1 cap PO QAM 12/26/18 03/18/19 History potassium chloride 10 meq PO QAM 12/26/18 03/18/19 History levothyroxine 25 mcg PO HS 02/06/19 03/18/19 History amiodarone 200 mg PO QAM #30 tab 03/02/19 03/18/19 Rx ferrous sulfate 325 mg PO BID #60 tab 03/02/19 03/18/19 Rx magnesium oxide 400 mg PO BID #60 tab 03/02/19 03/18/19 Rx acetaminophen 500 mg capsule 500 mg PO Q4H PRN MDD 6 tablets in 03/05/19 03/18/19 History 24 hours docusate sodium 100 mg capsule 100 mg PO BID 03/05/19 03/18/19 History Lactobacillus acidophilus capsule 100 mg PO QAM 03/16/19 03/18/19 History amoxicillin 875 mg-potassium 1 tab PO BID #60 tab 03/16/19 03/18/19 Rx clavulanate 125 mg tablet omeprazole 20 mg capsule,delayed 20 mg PO QAM #90 cap 03/16/19 03/18/19 History release clopidogrel [Plavix] 75 mg PO QAM 03/18/19 03/18/19 History Past Med/Surg History Medical History A-fib (Chronic) Abscess of abdominal wall (Chronic) Chronic kidney disease, stage 3a (Chronic) Metabolic encephalopathy (Resolved) Tremor (Chronic) Vertigo (Resolved) Transient ischemic attack (Resolved) Obstructive sleep apnea, adult (Chronic) Hypothyroidism (Chronic) Hyperlipidemia (Chronic) Depression (Chronic) Chronic cerebral ischemia (Resolved) Chronic asthmatic bronchitis (Chronic) CAD (coronary artery disease) (Chronic) Asthma (Chronic) HTN (hypertension) (Chronic) COPD (chronic obstructive pulmonary disease) (Chronic) Surgical History S/P cholecystectomy (Resolved) S/P hernia repair (Resolved) S/P hysterectomy (Resolved) Family History Mother , age 86 of an AK. She also had COPD. Myocardial infarction COPD (chronic obstructive pulmonary disease) Father , age 47 of an AK. 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 Other Information That Helps Us Care for You: No other: 4 children, 1 is already Feels Safe at Home: Yes Safety Concerns: Feels Safe At This Time Smoking Status: Never smoker Do You Dip or Chew Tobacco: No ; Hx Alcohol Use: No Hx Substance Use: No Childhood Exposure to Second-Hand Smoke: No Review of Systems Constitutional: no fever, no chills, no fatigue, no anorexia and no weight gain Eyes: no worsening vision Ear, Nose, Mouth, Throat: + dysphagia; no nasal congestion and no sore throat Respiratory: + cough, + dyspnea, + dyspnea on exertion, + sputum production and + wheezing; no hemoptysis Cardiovascular: + orthopnea and + paroxysmal nocturnal dyspnea; no chest pain and no edema Gastrointestinal: no abdominal pain, no nausea, no vomiting and no diar annita/loose stools Genitourinary: no dysuria Musculoskeletal: no back pain and no joint pain Integumentary: + rash Neurologic: no falls Psychiatric: no depression Endocrine: no diabetes Hematologic / Lymphatic: no easy bleeding Physical Exam Constitutional: + acute distress (respiratory distress ), + ill appearing and + obese; no altered mental status Eyes: PERRL ENMT: external ear and nose normal, oropharynx normal Ears: no TM abnormality Neck: trachea midline, no thyromegaly Respiratory: + respiratory distress, + labored breathing, + retractions, + uses accessory muscles, + cough and + tachypneic Auscultation: + crackles (both bases, a little worse on Left ) and + wheezes (mild-moderate ) Cardiovascular: Rate/Rhythm: regular rate and regular rhythm Heart Sounds: normal S1 and normal S2; no murmur Vessels: + JVD, posterior tibial pulses present and dorsalis pedis pulses present Extremities: + edema (trace b/l ) Gastrointestinal (Abdomen): Inspection/Auscultation: + abdomen distended (mild) Percussion/Palpation: abdomen soft; abdomen nontender and no hepatosplenomegaly abdominal wall with wound vac in place; no erythema of abdominal wall; numerous scars present Musculoskeletal: no cyanosis or clubbing, extremities motor strength 5/5 Skin: + rash (candidal rash in groin/perianal region) Neurologic: no focal motor deficits reflexes brisk/3+ b/l Psychiatric: Orientation: alert and oriented x 3 Lymphatic: no cervical lymphadenopathy Results & Data Vital Signs (Past 12 Hours) Vital Signs Temp Pulse Pulse Resp BP BP Pulse Ox 03/18/19 09:48 82 26 H 98 03/18/19 09:43 84 24 112/84 99 03/18/19 09:16 75 22 120/42 L 100 03/18/19 08:50 72 20 155/89 H 100 03/18/19 08:14 22 95 03/18/19 08:00 36.4 C L 74 26 H 145/73 H 96 Laboratory Results Laboratory Results - last 24 hr 03/18/19 03/18/19 03/18/19 08:24 08:24 08:24 WBC 16.69 H RBC 3.12 L Hgb 8.8 L Hct 28.0 L MCV 89.7 MCH 28.2 MCHC 31.4 L RDW Std Deviation 55.0 H RDW Coeff of Elliot 17.0 H Plt Count 433 H MPV 7.7 Immature Gran % (Auto) 0.5 Neut % (Auto) 80.0 Lymph % (Auto) 5.6 [place] % (Auto) 4.0 Eos % (Auto) 9.5 Baso % (Auto) 0.4 Immature Gran # (Auto) 0.08 H Neut # (Auto) 13.37 H Lymph # (Auto) 0.93 L [place] # (Auto) 0.66 H Eos # (Auto) 1.58 H Baso # (Auto) 0.07 PT 11.5 INR 1.1 APTT 25.3 PTT Ratio 0.9 VBG pH VBG pCO2 VBG pO2 VBG HCO3 VBG O2 Saturation VBG Base Excess Barometric Pressure Sodium 142 Potassium 4.1 Chloride 110 H Carbon Dioxide 27 Anion Gap 5.0 BUN 19 H Creatinine 0.81 Est Cr Clr Drug Dosing 47.2 Est GFR ( Amer) 75.7 Est GFR (Non-Af Amer) 65.3 BUN/Creatinine Ratio 23.0 H Glucose 101 H Lactate Calcium 9.0 Total Bilirubin 0.4 AST 32 ALT 42 Alkaline Phosphatase 103 Troponin I < 0.015 NT-Pro-B Natriuret Pep 8402 H Total Protein 6.9 Albumin 2.3 L Globulin 4.6 H Albumin/Globulin Ratio 0.5 L Procalcitonin TSH Urine Color Urine Appearance Urine pH Ur Specific [place] Urine Protein Urine Glucose (UA) Urine Ketones Urine Blood Urine Nitrite Urine Bilirubin Urine Urobilinogen Ur Leukocyte Esterase Urine WBC (Auto) Urine RBC (Auto) U Hyaline Cast (Auto) U Epithel Cells (Auto) Urine Bacteria (Auto) Ur Renal Epithelial Cell Urine Mucus Nasal Screen MRSA (PCR) 03/18/19 03/18/19 03/18/19 08:24 08:24 08:24 WBC RBC Hgb Hct MCV MCH MCHC RDW Std Deviation RDW Coeff of Elliot Plt Count MPV Immature Gran % (Auto) Neut % (Auto) Lymph % (Auto) [place] % (Auto) Eos % (Auto) Baso % (Auto) Immature Gran # (Auto) Neut # (Auto) Lymph # (Auto) [place] # (Auto) Eos # (Auto) Baso # (Auto) PT INR APTT PTT Ratio VBG pH VBG pCO2 VBG pO2 VBG HCO3 VBG O2 Saturation VBG Base Excess Barometric Pressure Sodium Potassium Chloride Carbon Dioxide Anion Gap BUN Creatinine Est Cr Clr Drug Dosing Est GFR ( Amer) Est GFR (Non-Af Amer) BUN/Creatinine Ratio Glucose Lactate Calcium Total Bilirubin AST ALT Alkaline Phosphatase Troponin I Cancelled NT-Pro-B Natriuret Pep Cancelled Total Protein Albumin Globulin Albumin/Globulin Ratio Procalcitonin 0.05 TSH 7.660 H Urine Color Urine Appearance Urine pH Ur Specific [place] Urine Protein Urine Glucose (UA) Urine Ketones Urine Blood Urine Nitrite Urine Bilirubin Urine Urobilinogen Ur Leukocyte Esterase Urine WBC (Auto) Urine RBC (Auto) U Hyaline Cast (Auto) U Epithel Cells (Auto) Urine Bacteria (Auto) Ur Renal Epithelial Cell Urine Mucus Nasal Screen MRSA (PCR) 03/18/19 03/18/19 03/18/19 09:38 12:00 12:00 WBC RBC Hgb Hct MCV MCH MCHC RDW Std Deviation RDW Coeff of [place] Plt Count MPV Immature Gran % (Auto) Neut % (Auto) Lymph % (Auto) [place] % (Auto) Eos % (Auto) Baso % (Auto) Immature Gran # (Auto) Neut # (Auto) Lymph # (Auto) [place] # (Auto) Eos # (Auto) Baso # (Auto) PT INR APTT PTT Ratio VBG pH VBG pCO2 VBG pO2 VBG HCO3 VBG O2 Saturation VBG Base Excess Barometric Pressure Sodium Potassium Chloride Carbon Dioxide Anion Gap BUN Creatinine Est Cr Clr Drug Dosing Est GFR ( Amer) Est GFR (Non-Af Amer) BUN/Creatinine Ratio Glucose Lactate 1.2 Calcium Total Bilirubin AST ALT Alkaline Phosphatase Troponin I NT-Pro-B Natriuret Pep Total Protein Albumin Globulin Albumin/Globulin Ratio Procalcitonin TSH Urine Color Yellow Urine Appearance Clear Urine pH 7.5 Ur Specific [place] 1.014 Urine Protein Negative Urine Glucose (UA) Negative Urine Ketones Negative Urine Blood Negative Urine Nitrite Negative Urine Bilirubin Negative Urine Urobilinogen Negative Ur Leukocyte Esterase 2+ H Urine WBC (Auto) >30 H Urine RBC (Auto) 0-4 U Hyaline Cast (Auto) 1-5 U Epithel Cells (Auto) >30 H Urine Bacteria (Auto) 1+ H Ur Renal Epithelial Cell Not Reportable Urine Mucus Present A Nasal Screen MRSA (PCR) Negative 03/18/19 03/18/19 14:31 Unknown WBC RBC Hgb Hct MCV MCH MCHC RDW Std Deviation RDW Coeff of Elliot Plt Count MPV Immature Gran % (Auto) Neut % (Auto) Lymph % (Auto) [place] % (Auto) Eos % (Auto) Baso % (Auto) Immature Gran # (Auto) Neut # (Auto) Lymph # (Auto) [place] # (Auto) Eos # (Auto) Baso # (Auto) PT INR APTT PTT Ratio VBG pH 7.36 VBG pCO2 44 VBG pO2 34 VBG HCO3 25 VBG O2 Saturation 61.9 VBG Base Excess -0.9 Barometric Pressure 732.2 Sodium Potassium Chloride Carbon Dioxide Anion Gap BUN Creatinine Est Cr Clr Drug Dosing Est GFR ( Amer) Est GFR (Non-Af Amer) BUN/Creatinine Ratio Glucose Lactate Calcium Total Bilirubin AST ALT Alkaline Phosphatase Troponin I < 0.015 NT-Pro-B Natriuret Pep Total Protein Albumin Globulin Albumin/Globulin Ratio Procalcitonin TSH Urine Color Urine Appearance Urine pH Ur Specific [place] Urine Protein Urine Glucose (UA) Urine Ketones Urine Blood Urine Nitrite Urine Bilirubin Urine Urobilinogen Ur Leukocyte Esterase Urine WBC (Auto) Urine RBC (Auto) U Hyaline Cast (Auto) U Epithel Cells (Auto) Urine Bacteria (Auto) Ur Renal Epithelial Cell Urine Mucus Nasal Screen MRSA (PCR) Diagnostic Findings Chest x-ray - IMPRESSION: 1. Cardiomegaly with pulmonary edema. 2. Small pleural effusions with perihilar and bibasilar airspace opacities are suggestive of alveolar edema with atelectasis. A superimposed pneumonitis would be impossible to exclude. EKG - NSR, no ST changes Code Status & VTE Plan Code Status full code - wishes expressed in presence of and daughter VTE Prophylaxis Plan VTE Prophylaxis will be ordered: Yes PG Care Time/CCT Total # of Minutes Spent Total Time Spent with Patient: Total time spent is greater than 50% in coordination of care (as documented) at patient's floor/unit and/or counseling patient: (1) Traumatic hematoma of abdominal wall with infection Encounter type: subsequent encounter Qualified Code(s): S30.1XXD - Contusion of abdominal wall, subsequent encounter; L08.9 - Local infection of the skin and subcutaneous tissue, unspecified (2) CAD (coronary artery disease) Associated angina: without angina Coronary Disease-Associated Artery/Lesion type: [place] artery [place] vs. transplanted heart: che[place] heart Qualified Code(s): I25.10 - Atherosclerotic heart disease of [place] coronary artery without angina pectoris (3) CHF (congestive heart failure) Heart failure chronicity: acute Heart failure type: unspecified Qualified Code(s): I50.9 - Heart failure, unspecified (4) Anemia Anemia type: unspecified type Qualified Code(s): D64.9 - Anemia, unspecified (5) A-fib Atrial fibrillation type: unspecified Qualified Code(s): I48.91 - Unspecified atrial fibrillation (6) Hyperlipidemia Hyperlipidemia type: mixed hyperlipidemia Qualified Code(s): E78.2 - Mixed hyperlipidemia (7) Hypothyroidism Hypothyroidism type: acquired Qualified Code(s): E03.9 - Hypothyroidism, unspecified (8) HTN (hypertension) Hypertension type: essential hypertension Qualified Code(s): I10 - Essential (primary) hypertension (9) Pneumonia Laterality: right Lung location: lower lobe of lung Pneumonia type: due to unspecified organism Qualified Code(s): J18.1 - Lobar pneumonia, unspecified organism (10) Asthma Asthma complication type: uncomplicated Asthma persistence: unspecified Asthma severity: unspecified severity Qualified Code(s): J45.909 - Unspecified asthma, uncomplicated
[2019-03-18] MEDS ORDERED: ACETAMINOPHEN 500 MG TAB PO PRN (11:23)
[2019-03-18] MEDS ORDERED: Nursing to Pharmacy Communication ONE (12:12)
[2019-03-18 12:21] LABS: Appearance Urine Clear (Clear); Bilirubin Urine Negative (Negative); Blood Urine Negative (Negative); Color Urine Yellow; Epithelial Cell Urine Auto >30 /lpf (0-5); Glucose Urine UA Negative (Negative); Ketones Urine Negative (Negative); Leukocyte Esterase Urine 2+ (Negative); Nitrite Urine Negative (Negative); Protein Urine Negative (Negative); RBC Urine Automated 0-4 /hpf (0-4); Specific Gravity Urine 1.014 (1.000-1.030); Urobilinogen Urine Negative (Negative); WBC Urine Automated >30 /hpf (0-5); pH Urine 7.5 (4.5-7.5)
[2019-03-18 12:32] LABS: Bacteria Urine Automated 1+ (Negative); Mucus Urine Present (None Prsent)
[2019-03-18] MEDS: AMIODARONE 200 MG TAB PO SCH (13:17)
[2019-03-18] MEDS: DOCUSATE SODIUM 100 MG CAP PO SCH ×2 (13:18→20:38)
[2019-03-18] MEDS: MAGNESIUM OXIDE 400 MG TAB PO SCH ×2 (13:20→20:37)
[2019-03-18] MEDS: CALCIUM CARBONATE 1250MG TAB PO SCH ×2 (13:21→20:39)
[2019-03-18] MEDS: POTASSIUM CHLORIDE 10 MEQ TABCR PO SCH (13:21)
[2019-03-18] MEDS: METOPROLOL SUCC 50MG EXT REL TAB PO SCH (13:22)
[2019-03-18] MEDS: CLOPIDOGREL BISULFATE 75 MG TAB PO SCH (13:22)
[2019-03-18] MEDS: FLUOXETINE HCL 10 MG CAP PO SCH (13:22)
[2019-03-18] MEDS: CHOLECALCIFEROL 1,000 UNITS TAB PO SCH (13:23)
[2019-03-18] MEDS: PIPERACILLIN/TAZOBACTAM 3.375 GM in DEXTROSE 5% 100 ML IV SCH ×2 (15:39→23:40)
[2019-03-18] MEDS ORDERED: BREO ELLIPTA: ORDER AWAITING ACTION SCH (16:00)
[2019-03-18] MEDS: ALBUT/IPRATROP 3MG/0.5MG NEB 3 ML VIAL NEB SCH ×3 (16:06→23:03)
[2019-03-18] MEDS: methylPREDNISolone 40 MG in SYRINGE 0 ML IV SCH ×2 (17:00→23:40)
[2019-03-18] MEDS: FERROUS SULFATE 325 MG TAB PO SCH (17:02)
[2019-03-18] MEDS: NYSTATIN POWDER 15GM BTL EXT SCH ×2 (19:53→20:39)
[2019-03-18] MEDS: FLUOXETINE HCL 20 MG CAP PO SCH (20:37)
[2019-03-18] MEDS: ATORVASTATIN 20 MG TAB PO SCH (20:38)
[2019-03-18] MEDS: MULTIVITAMIN TAB PO SCH (20:38)
[2019-03-18] MEDS: LEVOTHYROXINE SODIUM 25 MCG TABLET PO SCH (20:40)
[2019-03-18] MEDS: DOXYCYCLINE HYCLATE 100 MG in DEXTROSE 5% 100 ML IV SCH (20:40)
[2019-03-19] MEDS: ALBUT/IPRATROP 3MG/0.5MG NEB 3 ML VIAL NEB SCH ×6 (03:39→23:06)
[2019-03-19 06:27] LABS: Basophils # (auto) 0.01 K/uL (0-0.2); Basophils % (auto) 0.1 %; Eosinophils # (auto) 0.01 K/uL (0-0.5); Eosinophils % (auto) 0.1 %; Hemoglobin 7.5 g/dL (12.0-16.0); Immature Granulocytes # (auto) 0.05 K/uL (0.00-0.02); Immature Granulocytes % (auto) 0.4 %; Lymphocytes # (auto) 0.54 K/uL (1.2-3.4); Mean Corpuscular Hemoglobin 28.2 pg (25-34); Mean Corpuscular Hgb Conc 32.6 g/dL (32-36); Mean Corpuscular Volume 86.5 fL (80-100); Mean Platelet Volume 7.7 fL (7.4-10.4); Monocytes # (auto) 0.32 K/uL (0.11-0.59); Monocytes % (auto) 2.4 %; Neutrophils # (auto) 12.68 K/uL (1.4-6.5); Platelet Count 334 K/uL (130-400); RDW Coefficient of Variation 16.9 % (11.5-14.5); RDW Standard Deviation 52.9 fL (36.4-46.3); Red Blood Count 2.66 M/uL (4.2-5.4); White Blood Count 13.61 K/uL (4.8-10.8)
[2019-03-19 06:42] LABS: RBC Morphology Unremarkable
[2019-03-19 07:00] LABS: BUN Creatinine Ratio 25.6 (10-20); Calcium 8.5 mg/dl (8.5-10.1); Creatinine Clr Calc Pharmacy 41.5 ml/min; Est GFR (African American) 64.9; Magnesium 2.2 mg/dl (1.8-2.4)
--- NOTE | 2019-03-19 07:31 | XRay Report ---
XR chest 1V portable CLINICAL HISTORY: 88 years-old Female presenting with acute resp failure, pulm edema, interval change . TECHNIQUE: Portable upright AP view of the chest was obtained. COMPARISON: 03/18/2019. FINDINGS: Atherosclerosis of the aortic arch. Cardiac silhouette enlarged. Significant interval decrease in per ihilar predominant bilateral lung opacities. Slight decrease in left pleural effusion. Persistent den se left retrocardiac opacity, which may in part relate to pleural effusion and cardiomegaly. Small ri ght pleural effusion may also be present. Underlying heterogeneity lung parenchyma and possible inter lobular septal thickening. No pneumothorax. Relative radiolucency of the left upper lung, indetermina te. Degenerative changes of the thoracic spine. Degenerative changes of the shoulders. Density projec ts over the right upper quadrant, as on prior exam, indeterminate. IMPRESSION: 1. Significant interval improvement of pulmonary edema with decreased congestive change and decrease d left pleural effusion. Some degree of congestive change persists. 2. Cardiomegaly. Electronically signed by: Agustin Small M.D. 03/19/2019 7:30 AM
[2019-03-19] MEDS: FERROUS SULFATE 325 MG TAB PO SCH ×2 (07:43→18:33)
[2019-03-19] MEDS: PIPERACILLIN/TAZOBACTAM 3.375 GM in DEXTROSE 5% 100 ML IV SCH ×2 (07:43→17:27)
[2019-03-19] MEDS: methylPREDNISolone 40 MG in SYRINGE 0 ML IV SCH ×2 (07:43→17:26)
[2019-03-19] MEDS: FLUOXETINE HCL 10 MG CAP PO SCH (08:33)
[2019-03-19] MEDS: POTASSIUM CHLORIDE 10 MEQ TABCR PO SCH (08:34)
[2019-03-19] MEDS: AMIODARONE 200 MG TAB PO SCH (08:34)
[2019-03-19] MEDS: CHOLECALCIFEROL 1,000 UNITS TAB PO SCH (08:34)
[2019-03-19] MEDS: SACCHAROMYCES BOULARDII 250 MG CAP PO SCH (08:35)
[2019-03-19] MEDS: METOPROLOL SUCC 50MG EXT REL TAB PO SCH (08:35)
[2019-03-19] MEDS: DOCUSATE SODIUM 100 MG CAP PO SCH ×2 (08:36→19:42)
[2019-03-19] MEDS: FUROSEMIDE 20 MG in SYRINGE 0 ML IV SCH ×3 (08:36→19:31)
[2019-03-19] MEDS: CALCIUM CARBONATE 1250MG TAB PO SCH ×2 (08:36→19:43)
[2019-03-19] MEDS: MAGNESIUM OXIDE 400 MG TAB PO SCH ×2 (08:36→19:43)
[2019-03-19] MEDS: CLOPIDOGREL BISULFATE 75 MG TAB PO SCH (08:36)
[2019-03-19] MEDS: DOXYCYCLINE HYCLATE 100 MG in DEXTROSE 5% 100 ML IV SCH ×2 (08:37→20:22)
[2019-03-19] MEDS: NYSTATIN POWDER 15GM BTL EXT SCH ×4 (08:37→19:48)
[2019-03-19] MEDS: FLUTICASONE/VILANTEROL INHALER INH SCH (08:44)
[2019-03-19] MEDS ORDERED: LACTOBACILLUS ACIDOPHILUS 100 MG PO SCH (09:00)
[2019-03-19] MEDS ORDERED: SODIUM CHLORIDE 0.9% 250 ML IV PRN ×2 (11:08→12:56)
[2019-03-19] MEDS ORDERED: FUROSEMIDE 40 MG/4 ML VIAL IV SCH (13:30)
--- NOTE | 2019-03-19 14:51 | Hospitalist Progress Note ---
Date of Service March 19, 2019 Assessment & Plan (1) Acute respiratory failure with hypoxia: Chest x-ray has improved from admission Acute on chronic diastolic heart failure associated with cessation of diuretic therapy as an outpatient Patient did experience a choking spell on 03/16 evening, recent prolonged hospital stay, rehab stay, etc. She has associated leukocytosis. She could have aspiration pneumonitis or aspiration pneumonia gram-negative pneumonia from this. Continue to doubt pulmonary toxicity from amiodarone - this was initiated on 02/27/19 - Asthma/COPD exacerbation is possible as well. Antibiotics including gram negative/anaerobe coverage; steroids/nebs; IV lasix additional dose was given with transfusion on 03/19 Continue BIPAP - wean to NC O2 as tolerated. (2) CHF (congestive heart failure): Echo 02/12/19 with preserved EF. Therefore acute on chronic diastolic heart failure Possible etiologies for her decompensated diastolic CHF -- uncontrolled a.fib, lack of diuretic (was on HCTZ when she left [facility]; it was apparently d/c while at rehab), dietary issues, etc. No evidence of ischemia. Symptoms gradually worsened over 1-2 weeks. Hydrochlorothiazide was stopped at discharge from [facility] Shortly after admission to the telemetry unit she had PAF then converted back to NSR. If she has frequent runs of uncontrolled a.fib consider restarting an amiodarone drip with bolus. Continue beta david (metoprolol succinate 100mg daily). 20mg IV BID starting in AM.Dr Horner, will follow in consult (3) Pneumonia: Zosyn started in ER - will continue for gram negative coverage and anaerobe coverage. Doxycycline IV BID for atypical coverage. Follow blood cultures. Supportive care, BIPAP/NC O2, etc. (4) Asthma: Wheezing may be due to pulmonary edema rather than her asthma. IV steroids Breo and scheduled nebs BIPAP for sleep and as needed Wean to NC O2 as tolerated. (5) A-fib: During her previous prolonged hospitalization she had 2 episodes of PAF with one lasting over 24 hours. She may be having runs of PAF outside the hospital which could predispose her diastolic heart failure. She does not have symptoms from such. After admission to tele unit she had a PAF run. If PAF episodes are frequent consider restarting amiodarone infusion w/ bolus. Continue oral amiodarone for now. During prior hospital stay she was significantly anemic due to bleeding from her intra-abdominal hematoma; thus anticoagulation was deferred. Will continue to defer on such. I doubt pulmonary toxicity from amiodarone; theoretically possible but unlikely given that it would be very early after it was initiated (<2 weeks). (6) CAD (coronary artery disease): History of such. Years ago told she may have had an AL. But no cath available to substantiate actual CAD. Troponin is negative; will run serial troponins to be complete. (7) Chronic kidney disease, stage 3a: Cr stable (8) HTN (hypertension): Cont home medications. (9) Hyperlipidemia: (10) Hypothyroidism: TSH mildly elevated. Takes synthroid 25mcg daily. (11) Obstructive sleep apnea, adult: CPAP unit from home for as needed and night-time use. (12) Traumatic hematoma of abdominal wall with infection: Had spontaneous rupture of large intra-abdominal hematoma in February during her prolonged stay. The hematoma was due to a prior fall. Following rupture Dr Pablo performed I/D in the OR. Cultures showed e.coli. She has been on augmentin since. The abdominal wound is getting smaller with use of Wound Vac. It is changed M/W/F. Wound care clinic follows this. Will consult the wound care nurse. (13) Anemia: Hemoglobin has fallen below 8 g given her work of breathing we will transfuse 2 units of blood cells with Lasix surrounding a transfusion Previous work-up showed the anemia was likely due to bleeding from the intra- abdominal hematoma and also anemia of chronic disease. Continue ferrous sulfate. Patient did not have any melena or obvious blood loss source of her hemoglobin is not stabilized may consider reimaging her abdomen to evaluate once again for intra-abdominal bleeding although clinically her abdomen does not examine to be uncomfortable (14) Transient ischemic attack: Had TIA during prior admission. Also with h/o CVA many years ago. On plavix for secondary prevention. Ideally should be on anticoagulation because of PAF but this has been deferred -- see discussion above. (15) DVT prophylaxis: Subjective Patient is in good spirits today her wound is healing she does have some continued dyspnea requiring a positive pressure ventilation when she naps and sleeps. She continues to have some rales at the base with examination consistent with heart failure and the fact that her x-ray improved dramatically makes me lean towards heart failure than infectious etiologies. Her family is at the bedside and updated her anemia did worsen slightly she is no signs of blood loss and no melena although she does have hemorrhoids and she has no dyspepsia. Subsequently we will transfuse her 2 units packed red blood cells Review of Systems 2 Review of Systems: ROS: well nourished well developed. No double vision blurry vision No problems with speech or swallowing No palpitations, chest pain or pressure Persistently short of breath and with exertion No abdominal pain nausea vomiting diarrhea or dark bowel movements No burning urine urine frequency or changes in color No focal joint pain or muscle pain No skin rashes or oral lesions healing abdominal wound with a VAC in place No unusual bruising or bleeding No focused back pain or numbness or loss of strength No changes in memory or confusion Physical Exam Physical Exam: The patient appeared well nourished and normally developed. Vital signs as documented. Head exam is unremarkable. normocephalic, atraumatic Neck is without jugular venous distension, thyromegaly, or lymphademopathy Lungs are rales at the bases diminished bilaterally Cardiac exam reveals irregular with a systolic ejection murmur Abdominal exam reveals normal bowel sounds, wound VAC is in place over ventral wound is much smaller than when I saw last time there is no contiguous erythema and there is edges actually looks quite good Extremities are mildly edematous and both pedal pulses are present Neurologic exam is A&Ox3, no focal deficits, strength is equal bilateral Psychologically seems neither anxious or depressed Skin is warm Dry wound VAC in place followed by wound care as mentioned Results & Data Vital Signs (Past 12 Hours) Vital Signs Temp Pulse Pulse Resp BP BP Pulse Ox 03/19/19 14:10 36.7 C 66 18 155/73 H 95 03/19/19 13:55 36.7 C 66 18 135/71 95 03/19/19 13:35 36.6 C 68 18 130/69 94 03/19/19 11:42 87 28 H 96 03/19/19 11:34 87 20 96 03/19/19 10:54 36.8 C 76 19 145/80 H 99 03/19/19 07:15 65 03/19/19 07:10 63 18 96 03/19/19 06:49 36.4 C L 65 22 129/74 94 03/19/19 04:58 36.4 C L 63 18 136/72 96 03/19/19 03:41 58 L 18 95 03/19/19 03:40 58 L 18 95 PG Care Time/CCT Total # of Minutes Spent Total Time Spent with Patient: Total time spent is greater than 50% in coordination of care (as documented) at patient's floor/unit and/or counseling patient: (1) CHF (congestive heart failure) Heart failure chronicity: acute Heart failure type: unspecified Qualified Code(s): I50.9 - Heart failure, unspecified (2) Pneumonia Laterality: right Lung location: lower lobe of lung Pneumonia type: due to unspecified organism Qualified Code(s): J18.1 - Lobar pneumonia, unspecified organism (3) Asthma Asthma severity: unspecified severity Asthma persistence: unspecified Asthma complication type: uncomplicated Qualified Code(s): J45.909 - Unspecified asthma, uncomplicated (4) A-fib Atrial fibrillation type: unspecified Qualified Code(s): I48.91 - Unspecified atrial fibrillation (5) CAD (coronary artery disease) Coronary Disease-Associated Artery/Lesion type: [place] artery [place] vs. transplanted heart: [place] heart Associated angina: without angina Qualified Code(s): I25.10 - Atherosclerotic heart disease of [place] coronary artery without angina pectoris (6) HTN (hypertension) Hypertension type: essential hypertension Qualified Code(s): I10 - Essential (primary) hypertension (7) Hyperlipidemia Hyperlipidemia type: mixed hyperlipidemia Qualified Code(s): E78.2 - Mixed hyperlipidemia (8) Hypothyroidism Hypothyroidism type: acquired Qualified Code(s): E03.9 - Hypothyroidism, unspecified (9) Traumatic hematoma of abdominal wall with infection Encounter type: subsequent encounter Qualified Code(s): S30.1XXD - Contusion of abdominal wall, subsequent encounter; L08.9 - Local infection of the skin and subcutaneous tissue, unspecified (10) Anemia Anemia type: unspecified type Qualified Code(s): D64.9 - Anemia, unspecified
--- NOTE | 2019-03-19 15:23 | Cardiology Progress Note ---
Date of Service March 19, 2019 Assessment & Plan (1) Acute respiratory failure with hypoxia: Suspect the majority of her presentation was related to acute decompensated diastolic CHF. She has responded well to intravenous diuretics. (2) Acute on chronic diastolic CHF (congestive heart failure): As above, suspect this is the main etiology of her presentation. She will likely need to be on outpatient diuretic regimen as she was previously. (3) CAD (coronary artery disease): Nonobstructive disease identified on a cardiac catheterization in May 2009. (4) HTN (hypertension): Adequate control on current medical regimen. Subjective The patient is resting comfortably in bed with her son and daughter present in the room. She has improved dramatically with diuresis. explains that she was chronically on a diuretic as an outpatient before her last hospitalization. Physical Exam Physical Exam: In general is well-developed well-nourished white female no acute distress. HEENT exam is negative. Neck is supple with full carotid upstrokes. There are no carotid bruits. Jugular venous pressure is flat at 90 degrees. There is no thyromegaly. Cardiovascular exam reveals a regular rhythm with distant heart sounds. No obvious murmurs. Lungs are clear without rales, rhonchi or wheezes. Abdomen notes a wound VAC in place. Extremities reveal intact radial artery pulses bilaterally. Trace pretibial edema. Results & Data Vital Signs (Past 12 Hours) Vital Signs Temp Pulse Pulse Resp BP BP Pulse Ox 03/19/19 15:07 71 20 98 03/19/19 14:40 36.7 C 67 20 155/73 H 98 03/19/19 14:10 36.7 C 66 18 155/73 H 95 03/19/19 13:55 36.7 C 66 18 135/71 95 03/19/19 13:35 36.6 C 68 18 130/69 94 03/19/19 11:42 87 28 H 96 03/19/19 11:34 87 20 96 03/19/19 10:54 36.8 C 76 19 145/80 H 99 03/19/19 07:15 65 03/19/19 07:10 63 18 96 03/19/19 06:49 36.4 C L 65 22 129/74 94 03/19/19 04:58 36.4 C L 63 18 136/72 96 03/19/19 03:41 58 L 18 95 03/19/19 03:40 58 L 18 95 Diagnostic Findings Done to monitor notes normal sinus rhythm since she converted yesterday at approximately 2 p.m. PG Care Time/CCT Total # of Minutes Spent Total Time Spent with Patient: Total time spent is greater than 50% in coordination of care (as documented) at patient's floor/unit and/or counseling patient: (1) CAD (coronary artery disease) Associated angina: without angina Coronary Disease-Associated Artery/Lesion type: [place] artery [place] vs. transplanted heart: [place] heart Qualified Code(s): I25.10 - Atherosclerotic heart disease of [place] coronary artery without angina pectoris (2) HTN (hypertension) Hypertension type: essential hypertension Qualified Code(s): I10 - Essential (primary) hypertension
[2019-03-19] MEDS: MULTIVITAMIN TAB PO SCH (19:43)
[2019-03-19] MEDS: ATORVASTATIN 20 MG TAB PO SCH (19:43)
[2019-03-19] MEDS: FLUOXETINE HCL 20 MG CAP PO SCH (19:44)
[2019-03-19] MEDS: LEVOTHYROXINE SODIUM 25 MCG TABLET PO SCH (19:44)
[2019-03-20] MEDS: methylPREDNISolone 40 MG in SYRINGE 0 ML IV SCH ×4 (00:10→23:39)
[2019-03-20] MEDS: PIPERACILLIN/TAZOBACTAM 3.375 GM in DEXTROSE 5% 100 ML IV SCH ×2 (00:10→08:40)
[2019-03-20] MEDS: ALBUT/IPRATROP 3MG/0.5MG NEB 3 ML VIAL NEB SCH ×6 (02:32→23:09)
[2019-03-20] MEDS ORDERED: ALBUT/IPRATROP 3MG/0.5MG NEB 3 ML VIAL NEB STA (05:53)
[2019-03-20] MEDS ORDERED: FUROSEMIDE 40 MG/4 ML VIAL IV STA (05:53)
[2019-03-20] MEDS ORDERED: ALBUMIN 25% 50 ML IV SCH (06:09)
[2019-03-20 06:37] LABS: Basophils # (auto) 0.01 K/uL (0-0.2); Basophils % (auto) 0.1 %; Hemoglobin 10.3 g/dL (12.0-16.0); Immature Granulocytes % (auto) 0.6 %; Lymphocytes # (auto) 0.49 K/uL (1.2-3.4); Lymphocytes % (auto) 3.1 %; Mean Corpuscular Hemoglobin 29.3 pg (25-34); Mean Corpuscular Volume 85.2 fL (80-100); Mean Platelet Volume 8.2 fL (7.4-10.4); Monocytes # (auto) 0.47 K/uL (0.11-0.59); Monocytes % (auto) 2.9 %; Neutrophils # (auto) 14.89 K/uL (1.4-6.5); Neutrophils % (auto) 93.3 %; Platelet Count 386 K/uL (130-400); RDW Coefficient of Variation 16.8 % (11.5-14.5); RDW Standard Deviation 51.2 fL (36.4-46.3); Red Blood Count 3.52 M/uL (4.2-5.4); White Blood Count 15.96 K/uL (4.8-10.8)
[2019-03-20 06:56] LABS: Creatinine Clr Calc Pharmacy 32.4 ml/min; Est GFR (African American) 50.1; Est GFR (Non-African American) 43.2
[2019-03-20 07:03] LABS: Mean Corpuscular Hgb Conc 34.3 g/dL (32-36)
--- NOTE | 2019-03-20 07:09 | XRay Report ---
XR chest 1V portable CLINICAL HISTORY: 88 years-old Female presenting with Shortness of breath. TECHNIQUE: Portable upright AP view of the chest was obtained. COMPARISON: 03/19/2019. FINDINGS: Atherosclerosis of the aortic arch. Cardiac silhouette enlarged. Pulmonary vascular prominence has wo rsened from prior. Increased bronchial wall cuffing. Significantly increased perihilar opacities as w ell as more diffuse right lung opacity and basilar predominant left lung opacity. Small bilateral ple ural effusions suspected. No pneumothorax. Degenerative changes of the thoracic spine. Several administrative court justice al leads overlie the image to grating evaluation. Upper abdomen normal. IMPRESSION: 1. Cardiomegaly with significant interval worsening of volume overload, congestive change, and pulmo nary edema. 2. Given the asymmetry and more diffuse nature right lung infiltrates, a superimposed pneumonia juan jose ot be excluded. 3. Small bilateral pleural effusions. Electronically signed by: Agustin Small M.D. 03/20/2019 7:08 AM
[2019-03-20] MEDS: CHOLECALCIFEROL 1,000 UNITS TAB PO SCH (08:26)
[2019-03-20] MEDS: METOPROLOL SUCC 50MG EXT REL TAB PO SCH (08:26)
[2019-03-20] MEDS: CALCIUM CARBONATE 1250MG TAB PO SCH ×2 (08:26→20:21)
[2019-03-20] MEDS: DOCUSATE SODIUM 100 MG CAP PO SCH ×2 (08:27→20:19)
[2019-03-20] MEDS: CLOPIDOGREL BISULFATE 75 MG TAB PO SCH (08:27)
[2019-03-20] MEDS: FERROUS SULFATE 325 MG TAB PO SCH ×2 (08:28→16:19)
[2019-03-20] MEDS: FLUOXETINE HCL 10 MG CAP PO SCH (08:28)
[2019-03-20] MEDS: POTASSIUM CHLORIDE 10 MEQ TABCR PO SCH (08:28)
[2019-03-20] MEDS: AMIODARONE 200 MG TAB PO SCH (08:29)
[2019-03-20] MEDS: SACCHAROMYCES BOULARDII 250 MG CAP PO SCH (08:29)
[2019-03-20] MEDS: MAGNESIUM OXIDE 400 MG TAB PO SCH ×2 (08:29→20:21)
[2019-03-20] MEDS: DOXYCYCLINE HYCLATE 100 MG in DEXTROSE 5% 100 ML IV SCH (08:40)
[2019-03-20] MEDS: FUROSEMIDE 20 MG in SYRINGE 0 ML IV SCH (08:40)
[2019-03-20] MEDS: FLUTICASONE/VILANTEROL INHALER INH SCH (08:41)
[2019-03-20] MEDS: NYSTATIN POWDER 15GM BTL EXT SCH ×3 (08:41→20:21)
[2019-03-20] MEDS ORDERED: FUROSEMIDE 20 MG in SYRINGE 0 ML IV ONE (10:00)
[2019-03-20] MEDS: METOPROLOL TARTRATE 1 MG/ML VIAL IV PRN ×2 (10:05→18:15)
--- NOTE | 2019-03-20 14:27 | Hospitalist Progress Note ---
Date of Service March 20, 2019 Assessment & Plan (1) Acute respiratory failure with hypoxia: Chest x-ray has improved from admission Acute on chronic diastolic heart failure associated with cessation of diuretic therapy as an outpatient Patient did experience a choking spell on 03/16 evening, recent prolonged hospital stay, rehab stay, etc. She has associated leukocytosis. She could have aspiration pneumonitis or aspiration pneumonia gram-negative pneumonia from this. Continue to doubt pulmonary toxicity from amiodarone - this was initiated on 02/27/19 - Asthma/COPD exacerbation is possible as well. Antibiotics including gram negative/anaerobe coverage; steroids/nebs; IV lasix additional dose was given with transfusion on 03/19 Continue BIPAP - wean to NC O2 as tolerated. (2) CHF (congestive heart failure): Echo 02/12/19 with preserved EF. Therefore acute on chronic diastolic heart failure Possible etiologies for her decompensated diastolic CHF -- uncontrolled a.fib, lack of diuretic (was on HCTZ when she left [facility]; it was apparently d/c while at rehab), dietary issues, etc. No evidence of ischemia. Symptoms gradually worsened over 1-2 weeks. Hydrochlorothiazide was stopped at discharge from [facility] Patient continues to have paroxysmal atrial fibrillation remains on amiodarone boluses of beta-blockers per cardiology While continue beta david (metoprolol succinate 100mg daily). 20mg IV BID starting in AM we will escalate dose to 40 twice daily starting on the evening of 03/20 Dr Horner, will follow in consult (3) Pneumonia: Zosyn started in ER - will continue for gram negative coverage and anaerobe coverage. Doxycycline IV BID for atypical coverage. Negative cultures will de-escalate to doxycycline only Supportive care, BIPAP/NC O2, etc. (4) Asthma: Wheezing may be due to pulmonary edema rather than her asthma. IV steroids Breo and scheduled nebs BIPAP for sleep and as needed Wean to NC O2 as tolerated. (5) A-fib: During her previous prolonged hospitalization she had 2 episodes of PAF with one lasting over 24 hours. She may be having runs of PAF outside the hospital which could predispose her diastolic heart failure. She does not have symptoms from such. After admission to tele unit she had a PAF run. Continue oral amiodarone for now with PRN metoprolol augmenting her oral metoprolol dosing cardiology making final decisions regarding her rate control During prior hospital stay she was significantly anemic due to bleeding from her intra-abdominal hematoma; thus anticoagulation was deferred. Will continue to defer on such. I doubt pulmonary toxicity from amiodarone; theoretically possible but unlikely given that it would be very early after it was initiated (<2 weeks). (6) CAD (coronary artery disease): History of such. Years ago told she may have had an GA. But no cath available to substantiate actual CAD. Troponin is negative; she has no symptoms even with rapid ventricular rate (7) Chronic kidney disease, stage 3a: Cr stable will follow with increased diuresis (8) HTN (hypertension): Cont home medications. (9) Hyperlipidemia: (10) Hypothyroidism: TSH mildly elevated. Takes synthroid 25mcg daily. (11) Obstructive sleep apnea, adult: CPAP unit from home for as needed and night-time use. (12) Traumatic hematoma of abdominal wall with infection: Had spontaneous rupture of large intra-abdominal hematoma in February during her prolonged stay. The hematoma was due to a prior fall. Following rupture Dr Pablo performed I/D in the OR. Cultures showed e.coli. She has been on augmentin since. The abdominal wound is getting smaller with use of Wound Vac. It is changed M/W/F. Wound care clinic follows this. Will consult the wound care nurse. (13) Anemia: Hemoglobin has fallen below 8 g given her work of breathing we will tr ansfuse 2 units of blood cells with Lasix surrounding a transfusion Previous work-up showed the anemia was likely due to bleeding from the intra- abdominal hematoma and also anemia of chronic disease. Continue ferrous sulfate. Patient did not have any melena or obvious blood loss source of her hemoglobin is not stabilized may consider reimaging her abdomen to evaluate once again for intra-abdominal bleeding although clinically her abdomen does not examine to be uncomfortable (14) Transient ischemic attack: Had TIA during prior admission. Also with h/o CVA many years ago. On plavix for secondary prevention. Ideally should be on anticoagulation because of PAF but this has been deferred -- see discussion above. (15) DVT prophylaxis: if H/H remain stable would add chemical DVT proph tomorrow family extensively updated multiple times today time 80 minutes Subjective Patient developed atrial fibrillation with a rapid ventricular response in the morning 8\6. Additional metoprolol is given under the direction of cardiology. Patient does not feel any untoward symptoms except for some mild shortness of breath she is given additional dose of Lasix. She did receive transfusion on 03/19 and was given increased Lasix dosing this may have put her in a slight volume overload. Review of Systems Review of Systems: ROS: well nourished well developed. No double vision blurry vision No problems with speech or swallowing No palpitations, chest pain or pressure patient cannot sense her atrial fibrillation No Wheezing dyspnea at rest No abdominal pain nausea vomiting diarrhea wound is nontender No burning urine urine frequency or changes in color No focal joint pain or muscle pain No skin rashes or oral lesions No unusual bruising or bleeding No focused back pain or numbness or loss of strength No changes in memory or confusion Physical Exam Physical Exam: The patient appeared well nourished and normally developed. Vital signs as documented. Head exam is unremarkable. normocephalic, atraumatic Neck is without jugular venous distension, thyromegaly, or lymphademopathy Lungs are very scant expiratory wheezes throughout Cardiac exam reveals irregularly irregular rate in the 110 120s no murmurs heard Abdominal exam reveals normal bowel sounds, wound VAC is in place wound continues to be healing well Extremities are nonedematous and both pedal pulses are present Neurologic exam is A&Ox3, no focal deficits, strength is equal bilateral Psychologically seems neither anxious or depressed Skin is warm Dry without bruises or lesions Results & Data Vital Signs (Past 12 Hours) Vital Signs Temp Pulse Pulse Resp BP BP BP 03/20/19 11:16 103 H 20 03/20/19 10:50 36.7 C 106 H 19 148/74 H 03/20/19 10:05 128 H 146/95 H 03/20/19 07:15 74 03/20/19 07:09 70 18 03/20/19 07:05 36.8 C 73 22 169/75 H 03/20/19 06:03 72 20 03/20/19 03:36 36.4 C L 70 19 166/77 H 03/20/19 02:33 64 21 Pulse Ox 03/20/19 11:16 90 03/20/19 10:50 92 03/20/19 10:05 03/20/19 07:15 03/20/19 07:09 96 03/20/19 07:05 92 03/20/19 06:03 90 03/20/19 03:36 94 03/20/19 02:33 94 PG Care Time/CCT Total # of Minutes Spent Total Time Spent with Patient: Total time spent is greater than 50% in coordination of care (as documented) at patient's floor/unit and/or counseling patient: (1) CHF (congestive heart failure) Heart failure chronicity: acute Heart failure type: unspecified Qualified Code(s): I50.9 - Heart failure, unspecified (2) Pneumonia Laterality: right Lung location: lower lobe of lung Pneumonia type: due to unspecified organism Qualified Code(s): J18.1 - Lobar pneumonia, unspecified organism (3) Asthma Asthma severity: unspecified severity Asthma persistence: unspecified Asthma complication type: uncomplicated Qualified Code(s): J45.909 - Unspecified asthma, uncomplicated (4) A-fib Atrial fibrillation type: unspecified Qualified Code(s): I48.91 - Unspecified atrial fibrillation (5) CAD (coronary artery disease) Coronary Disease-Associated Artery/Lesion type: [place] artery [place] vs. transplanted heart: [place] heart Associated angina: without angina Qualified Code(s): I25.10 - Atherosclerotic heart disease of [place] coronary artery without angina pectoris (6) HTN (hypertension) Hypertension type: essential hypertension Qualified Code(s): I10 - Essential (primary) hypertension (7) Hyperlipidemia Hyperlipidemia type: mixed hyperlipidemia Qualified Code(s): E78.2 - Mixed hyperlipidemia (8) Hypothyroidism Hypothyroidism type: acquired Qualified Code(s): E03.9 - Hypothyroidism, unspecified (9) Traumatic hematoma of abdominal wall with infection Encounter type: subsequent encounter Qualified Code(s): S30.1XXD - Contusion of abdominal wall, subsequent encounter; L08.9 - Local infection of the skin and subcutaneous tissue, unspecified (10) Anemia Anemia type: unspecified type Qualified Code(s): D64.9 - Anemia, unspecified
[2019-03-20] MEDS: FUROSEMIDE 40 MG in SYRINGE 0 ML IV SCH (16:17)
[2019-03-20] MEDS: DOXYCYCLINE HYCLATE 100 MG CAP PO SCH (17:02)
[2019-03-20] MEDS: ATORVASTATIN 20 MG TAB PO SCH (20:20)
[2019-03-20] MEDS: MULTIVITAMIN TAB PO SCH (20:21)
[2019-03-20] MEDS: LEVOTHYROXINE SODIUM 25 MCG TABLET PO SCH (20:22)
[2019-03-20] MEDS: FLUOXETINE HCL 20 MG CAP PO SCH (20:22)
[2019-03-21] MEDS: ALBUT/IPRATROP 3MG/0.5MG NEB 3 ML VIAL NEB SCH ×7 (03:32→22:54)
[2019-03-21] MEDS ORDERED: ALBUMIN 25% 50 ML with FUROSEMIDE 40 MG IV ONE ×2 (03:50→23:55)
[2019-03-21] MEDS ORDERED: ALBUMIN 25% 50 ML with FUROSEMIDE 40 MG IV STA (03:53)
[2019-03-21] MEDS: DOXYCYCLINE HYCLATE 100 MG CAP PO SCH ×2 (05:29→19:55)
[2019-03-21 06:04] LABS: Hematocrit (blood only) 31.1 % (37-47); Hemoglobin 10.3 g/dL (12.0-16.0); Mean Corpuscular Hgb Conc 33.1 g/dL (32-36); Mean Corpuscular Volume 84.5 fL (80-100); Mean Platelet Volume 8.5 fL (7.4-10.4); Platelet Count 387 K/uL (130-400); RDW Coefficient of Variation 16.7 % (11.5-14.5); RDW Standard Deviation 50.6 fL (36.4-46.3); Red Blood Count 3.68 M/uL (4.2-5.4); White Blood Count 15.26 K/uL (4.8-10.8)
[2019-03-21 06:33] LABS: BUN Creatinine Ratio 29.8 (10-20); Calcium 9.4 mg/dl (8.5-10.1); Creatinine Clr Calc Pharmacy 36.9 ml/min; Est GFR (African American) 58.7; Est GFR (Non-African American) 50.6; Potassium 2.9 mmol/L (3.5-5.1)
[2019-03-21] MEDS ORDERED: POTASSIUM CHLORIDE 20 MEQ TABCR PO STA ×3 (07:59→19:46)
[2019-03-21] MEDS: DOCUSATE SODIUM 100 MG CAP PO SCH ×2 (08:38→19:53)
[2019-03-21] MEDS: PANTOprazole 40 MG TAB PO SCH (08:38)
[2019-03-21] MEDS: SACCHAROMYCES BOULARDII 250 MG CAP PO SCH (08:39)
[2019-03-21] MEDS: methylPREDNISolone 40 MG in SYRINGE 0 ML IV SCH ×3 (08:39→23:55)
[2019-03-21] MEDS: FERROUS SULFATE 325 MG TAB PO SCH ×2 (08:39→16:46)
[2019-03-21] MEDS: MAGNESIUM OXIDE 400 MG TAB PO SCH ×2 (08:40→19:53)
[2019-03-21] MEDS: CLOPIDOGREL BISULFATE 75 MG TAB PO SCH (08:40)
[2019-03-21] MEDS: FLUOXETINE HCL 10 MG CAP PO SCH (08:40)
[2019-03-21] MEDS: CHOLECALCIFEROL 1,000 UNITS TAB PO SCH (08:40)
[2019-03-21] MEDS: AMIODARONE 200 MG TAB PO SCH (08:43)
[2019-03-21] MEDS: FLUTICASONE/VILANTEROL INHALER INH SCH (08:44)
[2019-03-21] MEDS: CALCIUM CARBONATE 1250MG TAB PO SCH ×2 (08:45→19:54)
[2019-03-21] MEDS: METOPROLOL SUCC 50MG EXT REL TAB PO SCH (08:48)
[2019-03-21] MEDS: FUROSEMIDE 40 MG in SYRINGE 0 ML IV SCH ×2 (09:00→16:46)
[2019-03-21] MEDS: POTASSIUM CHLORIDE 10 MEQ TABCR PO SCH (09:24)
[2019-03-21] MEDS: NYSTATIN POWDER 15GM BTL EXT SCH ×3 (09:28→20:25)
[2019-03-21] MEDS ORDERED: AMIODARONE IV BOLUS / DRIP IV STA (09:52)
[2019-03-21] MEDS ORDERED: AMIODARONE / D5W 360 MG/200 ML BAG IV SCH (10:30)
--- NOTE | 2019-03-21 13:50 | Cardiology Progress Note ---
Date of Service March 21, 2019 Assessment & Plan (1) Acute respiratory failure with hypoxia: Likely secondary to acute decompensated diastolic CHF. She has responded well to intravenous diuretics. Her atrial fibrillation and rapid ventricular response may be playing a factor. (2) Acute on chronic diastolic CHF (congestive heart failure): She will likely need to be on outpatient diuretic regimen as she was previously. (3) PAF (paroxysmal atrial fibrillation): Would suggest intravenous amiodarone to hopefully convert her out of her refractory atrial fibrillation with a rapid ventricular response. (4) CAD (coronary artery disease): Nonobstructive coronary artery disease identified on a cardiac catheterization in May 2009. (5) HTN (hypertension): Adequate control on current medical regimen. Subjective The patient is resting comfortably in bed without complaints of chest discomfort, dyspnea, or palpitations. She remains in atrial fibrillation. Physical Exam Physical Exam: In general is well-developed well-nourished white female no acute distress. HEENT exam is negative. Neck is supple with full carotid upstrokes. There are no carotid bruits. No JVD. There is no thyromegaly. Cardiovascular exam reveals a regular rhythm with distant heart sounds. No obvious murmurs. Lungs are clear without rales, rhonchi or wheezes. Abdomen notes a wound VAC in place. Extremities reveal intact radial artery pulses bilaterally. Trace pretibial edema. Results & Data Vital Signs (Past 12 Hours) Vital Signs Temp Pulse Pulse Resp BP BP Pulse Ox 03/21/19 12:20 36.9 C 117 H 22 164/99 H 90 03/21/19 11:25 126 H 18 89 L 03/21/19 11:16 128 H 18 86 L 03/21/19 08:00 115 H 03/21/19 07:15 36.6 C 104 H 28 H 154/95 H 92 03/21/19 07:08 105 H 22 83 L 03/21/19 03:32 107 H 20 89 L 03/21/19 03:21 90 03/21/19 03:20 36.6 C 96 H 20 144/87 H 85 L Diagnostic Findings monitor technician notes atrial fibrillation with a heart rate varying 90-130 beats per minute. PG Care Time/CCT Total # of Minutes Spent Total Time Spent with Patient: Total time spent is greater than 50% in coordination of care (as documented) at patient's floor/unit and/or counseling patient: (1) CAD (coronary artery disease) Associated angina: without angina Coronary Disease-Associated Artery/Lesion type: [place] artery [place] vs. transplanted heart: [place] heart Qualified Code(s): I25.10 - Atherosclerotic heart disease of [place] coronary artery without angina pectoris (2) HTN (hypertension) Hypertension type: essential hypertension Qualified Code(s): I10 - Essential (primary) hypertension
--- NOTE | 2019-03-21 14:42 | Hospitalist Progress Note ---
Date of Service March 21, 2019 Assessment & Plan (1) Acute respiratory failure with hypoxia: Chest x-ray has improved from admission Acute on chronic diastolic heart failure associated with cessation of diuretic therapy as an outpatient and A.fib Patient did experience a choking spell on 03/16 evening, recent prolonged hospital stay, rehab stay, etc. She has associated leukocytosis. She could have aspiration pneumonitis or aspiration pneumonia gram-negative pneumonia from this. Continue to doubt pulmonary toxicity from amiodarone - this was initiated on 02/27/19 - Asthma/COPD exacerbation is possible as well. Antibiotics including gram negative/anaerobe coverage; steroids/nebs; IV lasix - additional dose was given with transfusion on 03/19 Continue BIPAP - wean to NC O2 as tolerated. (2) CHF (congestive heart failure): Echo 02/12/19 with preserved EF. Therefore acute on chronic diastolic heart failure Possible etiologies for her decompensated diastolic CHF -- uncontrolled a.fib, lack of diuretic (was on HCTZ when she left [facility]; it was apparently d/c while at rehab), dietary issues, etc. No evidence of ischemia. Symptoms gradually worsened over 1-2 weeks. Hydrochlorothiazide was stopped at discharge from [facility] Patient continues with Afib RVR today - placed on amiodarone gtt and beta- blockers per cardiology Continue 40 mg furosemide twice daily Dr Horner will follow in consult (3) A-fib: During her previous prolonged hospitalization she had 2 episodes of PAF with one lasting over 24 hours. She may be having runs of PAF outside the hospital which could predispose her diastolic heart failure. She does not have symptoms from such. Changed oral amiodarone to amiodarone drip per cardiology recommendation, continue PRN metoprolol augmenting her oral metoprolol dosing - cardiology making final decisions regarding her rate control During prior hospital stay she was significantly anemic due to bleeding from her intra-abdominal hematoma; thus anticoagulation was deferred. Will continue to defer on such. I doubt pulmonary toxicity from amiodarone; theoretically possible but unlikely given that it would be very early after it was initiated (<2 weeks). (4) Pneumonia: Zosyn started in ER Doxycycline IV BID for atypical coverage. Negative cultures - will de-escalate to doxycycline only Supportive care, BIPAP/NC O2, etc. (5) CAD (coronary artery disease): History of such. Years ago told she may have had an WI, but no cath available to substantiate actual CAD. Troponin is negative; she has no symptoms even with rapid ventricular rate (6) Asthma: Wheezing may be due to pulmonary edema rather than her asthma. IV steroids, Breo, and scheduled nebs BIPAP for sleep and as needed Wean to NC O2 as tolerated. (7) Chronic kidney disease, stage 3a: Cr stable will follow with increased diuresis (8) HTN (hypertension): Cont home medications. (9) Hyperlipidemia: continue atorvastatin (10) Hypothyroidism: TSH mildly elevated. Takes synthroid 25mcg daily. (11) Obstructive sleep apnea, adult: CPAP unit from home for as needed and night-time use. (12) Traumatic hematoma of abdominal wall with infection: Had spontaneous rupture of large intra-abdominal hematoma in February during her prolonged stay. The hematoma was due to a prior fall. Following rupture Dr Pablo performed I/D in the OR. Cultures showed e.coli. She has been on augmentin since. The abdominal wound is getting smaller with use of Wound Vac. It is changed M/W/F. Wound care clinic follows this. Will consult the wound care nurse. (13) Anemia: Has recieved 2 units of blood cells this admission Previous work-up showed the anemia was likely due to bleeding from the intra- abdominal hematoma and also anemia of chronic disease. Continue ferrous sulfate. Patient did not have any melena or obvious blood loss source of her hemoglobin - hgb has been stable for the last two days, will re-image abdomen if it begins to decrease again (14) Transient ischemic attack: Had TIA during prior admission. Also with h/o CVA many years ago. On Plavix for secondary prevention. Ideally should be on anticoagulation because of PAF but this has been deferred -- see discussion above. (15) DVT prophylaxis: H/H has remained stable for two days - will add dvt prophylaxis heparin bid Subjective Ms. Parra is in good spirits. She continues to be sob, heart rate reaching 120s in A.fib. No chest pain. No abdominal pain. Family at bedside, questions answered Review of Systems Review of Systems: All systems reviewed & are unremarkable except as noted in HPI & below Physical Exam Physical Exam: General: no distress Eyes: normal inspection, PERLL Respiratory: chest non tender, crackles bilateral bases, scattered wheezes throughout, no respiratory distress, no accessory muscle use Cardiac:irregular rate and rhythm, no rub or gallop, no murmur, no edema, GI/: active bowel sounds, no abd pain or tenderness, soft, non distended Extremities: normal range of motion, normal strength, non tender Neuro/Psych: alert and oriented x 3, normal mood and affect Skin: normal color, dry, wound vac in place Results & Data Vital Signs (Past 12 Hours) Vital Signs Temp Pulse Pulse Resp BP BP Pulse Ox 03/21/19 14:00 115 H 22 91 03/21/19 12:20 36.9 C 117 H 22 164/99 H 90 03/21/19 11:25 126 H 18 89 L 03/21/19 11:16 128 H 18 86 L 03/21/19 08:00 115 H 03/21/19 07:15 36.6 C 104 H 28 H 154/95 H 92 03/21/19 07:08 105 H 22 83 L 03/21/19 03:32 107 H 20 89 L 03/21/19 03:21 90 03/21/19 03:20 36.6 C 96 H 20 144/87 H 85 L PG Care Time/CCT Total # of Minutes Spent Total Time Spent with Patient: Total time spent is greater than 50% in coordination of care (as documented) at patient's floor/unit and/or counseling patient: (1) CHF (congestive heart failure) Heart failure chronicity: acute Heart failure type: unspecified Qualified Code(s): I50.9 - Heart failure, unspecified (2) Pneumonia Laterality: right Lung location: lower lobe of lung Pneumonia type: due to unspecified organism Qualified Code(s): J18.1 - Lobar pneumonia, unspecified organism (3) Asthma Asthma severity: unspecified severity Asthma persistence: unspecified Asthma complication type: uncomplicated Qualified Code(s): J45.909 - Unspecified asthma, uncomplicated (4) A-fib Atrial fibrillation type: unspecified Qualified Code(s): I48.91 - Unspecified atrial fibrillation (5) CAD (coronary artery disease) Coronary Disease-Associated Artery/Lesion type: [place] artery [place] vs. transplanted heart: [place] heart Associated angina: without angina Qualified Code(s): I25.10 - Atherosclerotic heart disease of [place] coronary artery withou t angina pectoris (6) HTN (hypertension) Hypertension type: essential hypertension Qualified Code(s): I10 - Essential (primary) hypertension (7) Hyperlipidemia Hyperlipidemia type: mixed hyperlipidemia Qualified Code(s): E78.2 - Mixed hyperlipidemia (8) Hypothyroidism Hypothyroidism type: acquired Qualified Code(s): E03.9 - Hypothyroidism, unspecified (9) Traumatic hematoma of abdominal wall with infection Encounter type: subsequent encounter Qualified Code(s): S30.1XXD - Contusion of abdominal wall, subsequent encounter; L08.9 - Local infection of the skin and subcutaneous tissue, unspecified (10) Anemia Anemia type: unspecified type Qualified Code(s): D64.9 - Anemia, unspecified
[2019-03-21] MEDS: AMIODARONE / D5W 360 MG/200 ML BAG IV SCH (15:49)
[2019-03-21] MEDS ORDERED: METOPROLOL TARTRATE 1 MG/ML VIAL IV ONE (16:26)
[2019-03-21] MEDS ORDERED: AMOXICILLIN/CLAVULANATE 875 MG TAB PO SCH (17:00)
[2019-03-21] MEDS ORDERED: FUROSEMIDE 40 MG/4 ML VIAL IV ONE ×2 (19:22→22:46)
[2019-03-21] MEDS ORDERED: FUROSEMIDE 40 MG/4 ML VIAL IV STA ×2 (19:23→22:42)
[2019-03-21] MEDS ORDERED: ALBUMIN 25% 50 ML IV ONE (19:26)
[2019-03-21] MEDS ORDERED: BUDESONIDE 0.5 MG/2 ML VIAL (PULMICORT) NEB ONE (19:31)
[2019-03-21] MEDS ORDERED: FUROSEMIDE 40 MG in SYRINGE 0 ML IV STA (19:35)
[2019-03-21] MEDS: BUDESONIDE 0.5 MG/2 ML VIAL (PULMICORT) NEB SCH (19:42)
--- NOTE | 2019-03-21 19:45 | Progress Note ---
Date of Service March 21, 2019 Assessment & Plan (1) Acute on chronic diastolic CHF (congestive heart failure): Patient's respiratory distress appears multifactorial---diastolic failure, PNA in the setting of COPD Patient is volume overloaded, received Lasix, 40 in this morning, 40 this a fternoon. Still dyspneic. On Bipap when I arrived, crackles throughout. I gave another dose of Lasix 40 IV at 19:30 and observed the patient's sats improving on BIPAP. In addition, giving the patient a Duoneb and dose of albumin. Starting the patient on Budesonide nebs BID. Plan; 1. CXR 2. ABG 3. Continue BIPAP 4. Continue to diurese as needed (2) COPD (chronic obstructive pulmonary disease): COPD type: COPD with acute exacerbation Qualified Code(s): J44.1 - Chronic obstructive pulmonary disease with (acute) exacerbation (3) Acute respiratory failure with hypoxia: Subjective Respond to the patient in respiratory distress -Vitals stable Results & Data Vital Signs (Past 12 Hours) Vital Signs Temp Pulse Pulse Resp BP BP BP 03/21/19 19:26 69 18 03/21/19 16:44 118 H 122/77 03/21/19 15:49 36.7 C 118 H 20 122/77 03/21/19 15:23 114 H 19 03/21/19 14:00 115 H 22 03/21/19 12:20 36.9 C 117 H 22 164/99 H 03/21/19 11:25 126 H 18 03/21/19 11:16 128 H 18 03/21/19 08:00 115 H Pulse Ox 03/21/19 19:26 90 03/21/19 16:44 03/21/19 15:49 90 03/21/19 15:23 92 03/21/19 14:00 91 03/21/19 12:20 90 03/21/19 11:25 89 L 03/21/19 11:16 86 L 03/21/19 08:00 PG Care Time/CCT Total # of Minutes Spent Total Time Spent with Patient: Total time spent is greater than 50% in coordination of care (as documented) at patient's floor/unit and/or counseling patient:
[2019-03-21] MEDS ORDERED: DOXYCYCLINE HYCLATE 100 MG in DEXTROSE 5% 100 ML IV STA (19:49)
[2019-03-21] MEDS: MULTIVITAMIN TAB PO SCH (19:53)
[2019-03-21] MEDS: ATORVASTATIN 20 MG TAB PO SCH (19:53)
[2019-03-21] MEDS: FLUOXETINE HCL 20 MG CAP PO SCH (19:54)
[2019-03-21] MEDS: LEVOTHYROXINE SODIUM 25 MCG TABLET PO SCH (19:54)
--- NOTE | 2019-03-21 20:00 | XRay Report ---
XR chest 1V portable HISTORY: Shortness of breath. COMPARISON: 03/20/2019. FINDINGS: No pneumothorax. Small bilateral pleural effusions and bilateral airspace opacities/interst itial thickening persists. The heart remains enlarged. IMPRESSION: No change in the asymmetric pulmonary edema and small bilateral pleural effusions. A superimposed pne umonia cannot be excluded. Electronically signed by: Junior Starr M.D. 03/21/2019 7:59 PM
[2019-03-21 20:04] LABS: Base Excess ABG 3.5 mEq/L (-9-1.8); HCO3 ABG 27 mmol/L (19-24); Oxygen Saturation ABG 96.3 % (90-95); PCO2 ABG 35 mmHg (35-46); PO2 ABG 82 mm/Hg (80-95)
[2019-03-21 20:05] LABS: Allen Test Pos (Pos)
[2019-03-21] MEDS ORDERED: PIPERACILL/TAZOBAC CONSULT ACTIVE PRN (20:17)
[2019-03-21] MEDS ORDERED: VANCOMYCIN CONSULT ACTIVE PRN (20:20)
[2019-03-21] MEDS: HEPARIN SOD 5,000 UNIT/0.5 ML VIAL SQ SCH (20:25)
[2019-03-21] MEDS ORDERED: VANCOMYCIN HCL 1,000 MG in SODIUM CHLORIDE 0.9% 500 ML IV SCH (20:30)
[2019-03-21] MEDS ORDERED: PIPERACILLIN/TAZOBACTAM 3.375 GM in DEXTROSE 5% 100 ML IV ONE (20:45)
[2019-03-21] MEDS ORDERED: VANCOMYCIN HCL 1,500 MG in SODIUM CHLORIDE 0.9% 500 ML IV ONE (21:00)
[2019-03-21 22:30] LABS: Albumin Globulin Ratio 0.6 (0.9-2); Albumin Level 2.8 gm/dl (3.4-5.0); BUN Creatinine Ratio 29.2 (10-20); Bilirubin,Total 0.4 mg/dl (0.2-1); Calcium 9.6 mg/dl (8.5-10.1); Creatinine Clr Calc Pharmacy 30.7 ml/min; Est GFR (African American) 47.5; Globulin 4.3 gm/dl (2.5-4.0); Magnesium 1.9 mg/dl (1.8-2.4); Potassium 3.5 mmol/L (3.5-5.1); Total Protein 7.1 gm/dl (6.4-8.2)
[2019-03-22] MEDS ORDERED: NITROGLYCERIN/D5W 100 MCG/ML BTL ONE (01:01)
[2019-03-22] MEDS ORDERED: NITROGLYCERIN/D5W 100MCG/ML 250 ML IV SCH (01:15)
[2019-03-22 01:33] LABS: Hemoglobin 11.5 g/dL (12.0-16.0); Mean Corpuscular Hemoglobin 28.5 pg (25-34); Mean Corpuscular Hgb Conc 32.9 g/dL (32-36); Mean Corpuscular Volume 86.6 fL (80-100); Mean Platelet Volume 8.2 fL (7.4-10.4); Platelet Count 494 K/uL (130-400); RDW Coefficient of Variation 16.9 % (11.5-14.5); RDW Standard Deviation 53.3 fL (36.4-46.3); Red Blood Count 4.04 M/uL (4.2-5.4); White Blood Count 22.91 K/uL (4.8-10.8)
[2019-03-22 01:44] LABS: Basophils # (auto) 0.01 K/uL (0-0.2); Immature Granulocytes # (auto) 0.22 K/uL (0.00-0.02); Lymphocytes # (auto) 1.36 K/uL (1.2-3.4); Lymphocytes % (auto) 5.9 %; Monocytes # (auto) 0.95 K/uL (0.11-0.59); Monocytes % (auto) 4.1 %; Neutrophils # (auto) 20.37 K/uL (1.4-6.5); Ovalocytes 1+
[2019-03-22 01:45] LABS: Alanine Aminotransferase 37 U/L (12-78); Aspartate Aminotransferase 14 U/L (15-37); Blood Urea Nitrogen 34 mg/dl (7-18); Calcium 8.8 mg/dl (8.5-10.1); Carbon Dioxide 29 mmol/L (21-32); Chloride 102 mmol/L (98-107); Est GFR (African American) 46.1; Est GFR (Non-African American) 39.8; Glucose 225 mg/dl (70-99); Magnesium 1.9 mg/dl (1.8-2.4); Sodium 140 mmol/L (136-145)
[2019-03-22 01:50] LABS: Albumin Globulin Ratio 0.7 (0.9-2); Alkaline Phosphatase 92 U/L (45-117); Bilirubin,Total 0.5 mg/dl (0.2-1); Globulin 4.2 gm/dl (2.5-4.0); Phosphorus 3.5 mg/dl (2.5-4.9); Total Protein 7.2 gm/dl (6.4-8.2); Troponin I < 0.015 ng/ml (0-0.045)
[2019-03-22] MEDS ORDERED: MoRPHine SULFATE 2 MG/ML CARP ONE (01:59)
[2019-03-22] MEDS: AMIODARONE / D5W 360 MG/200 ML BAG IV SCH (02:00)
[2019-03-22] MEDS ORDERED: ICU PROTOCOL FOR HYPERGLYCEMIA PRN (02:33)
[2019-03-22] MEDS ORDERED: GLUCAGON FOR INJ 1 MG VIAL IM PRN (02:45)
[2019-03-22] MEDS ORDERED: DEXTROSE 50% 50 ML SYRINGE IV PRN (02:45)
[2019-03-22] MEDS ORDERED: GLUCOSE 10 TABS/TUBE PO PRN (02:45)
[2019-03-22] MEDS ORDERED: GLUCOSE 40% GEL 15 GM TUBE PO PRN (02:45)
[2019-03-22] MEDS ORDERED: CARBOHYDRATES FOR HYPOGLYCEMIA PO PRN (02:45)
[2019-03-22] MEDS ORDERED: PHARMACY GLYCEMIC MGMT CONSULT PRN (02:46)
[2019-03-22] MEDS ORDERED: MoRPHine SULFATE 2 MG/ML CARP IV PRN (02:50)
[2019-03-22] MEDS: PIPERACILLIN/TAZOBACTAM 3.375 GM in DEXTROSE 5% 100 ML IV SCH ×2 (02:56→10:28)
[2019-03-22] MEDS ORDERED: INSULIN REGULAR 250 UNITS in SODIUM CHLORIDE 0.9% 247.5 ML IV SCH (03:00)
[2019-03-22] MEDS ORDERED: INSULIN HUMAN REGULAR PER UNIT 2.5 UNITS in SYRINGE 2.475 ML IV ONE (03:00)
[2019-03-22] MEDS: ALBUT/IPRATROP 3MG/0.5MG NEB 3 ML VIAL NEB SCH ×6 (03:34→23:16)
[2019-03-22 04:36] LABS: Hematocrit (blood only) 33.1 % (37-47); Hemoglobin 10.6 g/dL (12.0-16.0); Mean Corpuscular Hemoglobin 28.3 pg (25-34); Mean Corpuscular Volume 88.5 fL (80-100); Mean Platelet Volume 8.2 fL (7.4-10.4); Platelet Count 367 K/uL (130-400); RDW Coefficient of Variation 16.8 % (11.5-14.5); RDW Standard Deviation 54.1 fL (36.4-46.3); Red Blood Count 3.74 M/uL (4.2-5.4); White Blood Count 24.18 K/uL (4.8-10.8)
[2019-03-22 04:59] LABS: BUN Creatinine Ratio 32.4 (10-20); Calcium 8.8 mg/dl (8.5-10.1); Creatinine Clr Calc Pharmacy 33.6 ml/min; Est GFR (African American) 52.9; Est GFR (Non-African American) 45.6; Potassium 3.3 mmol/L (3.5-5.1)
[2019-03-22] MEDS: ONDANSETRON INJ 2 MG/ML 2 ML VIAL IV PRN (05:10)
[2019-03-22] MEDS: DOXYCYCLINE HYCLATE 100 MG CAP PO SCH (06:00)
[2019-03-22] MEDS ORDERED: HydrALAZINE HCL 20 MG/ML VIAL IV PRN (07:05)
[2019-03-22] MEDS ORDERED: ICU ELECTROLYTE REPLACEMENT PROTOCOL PRN (07:11)
[2019-03-22] MEDS: BUDESONIDE 0.5 MG/2 ML VIAL (PULMICORT) NEB SCH ×2 (07:12→20:06)
[2019-03-22] MEDS ORDERED: INSULIN ASPART 100 UNITS/ML 3 ML PEN SC SCH ×2 (07:30→12:00)
[2019-03-22] MEDS: methylPREDNISolone 40 MG in SYRINGE 0 ML IV SCH (07:57)
[2019-03-22] MEDS: FUROSEMIDE 40 MG in SYRINGE 0 ML IV SCH ×3 (07:57→23:49)
[2019-03-22] MEDS ORDERED: MAGNESIUM SULFATE / D5W 1 GM/100 ML BAG IV ONE (08:15)
[2019-03-22] MEDS: FLUTICASONE/VILANTEROL INHALER INH SCH (08:48)
[2019-03-22] MEDS: DOCUSATE SODIUM 100 MG CAP PO SCH ×2 (08:48→20:14)
[2019-03-22] MEDS: SACCHAROMYCES BOULARDII 250 MG CAP PO SCH (08:48)
[2019-03-22] MEDS: FERROUS SULFATE 325 MG TAB PO SCH ×2 (08:48→16:29)
[2019-03-22] MEDS: CALCIUM CARBONATE 1250MG TAB PO SCH ×2 (08:49→20:14)
[2019-03-22] MEDS: CLOPIDOGREL BISULFATE 75 MG TAB PO SCH (08:49)
[2019-03-22] MEDS: MAGNESIUM OXIDE 400 MG TAB PO SCH ×2 (08:49→20:14)
[2019-03-22] MEDS: FLUOXETINE HCL 10 MG CAP PO SCH (08:49)
[2019-03-22] MEDS: CHOLECALCIFEROL 1,000 UNITS TAB PO SCH (08:49)
[2019-03-22] MEDS: METOPROLOL SUCC 50MG EXT REL TAB PO SCH (08:49)
[2019-03-22] MEDS: POTASSIUM CHLORIDE 10 MEQ TABCR PO SCH (08:49)
[2019-03-22] MEDS: PANTOprazole 40 MG TAB PO SCH (08:49)
[2019-03-22] MEDS: NYSTATIN POWDER 15GM BTL EXT SCH ×3 (08:51→20:14)
[2019-03-22] MEDS: HEPARIN SOD 5,000 UNIT/0.5 ML VIAL SQ SCH ×2 (08:52→20:35)
--- NOTE | 2019-03-22 08:59 | Critical Care Consultation ---
Date of Consultation March 22, 2019 Assessment & Plan (1) Acute on chronic diastolic CHF (congestive heart failure): Reason Critically Ill: 88-year-old female with recent hospitalization for abdominal wound presents with ongoing and worsening hypoxic respiratory failure. Neuro - [facility] ICU: Negative Cardiac - Diastolic CHFlast echo showed EF 50 to 55% with septal wall motion abnormality -Likely source of dyspnea considering patient began to display symptoms after thiazide diuretic discontinued for ROXANNA -We will proceed with aggressive diuresis, see respiratory failure below CADrecent cath showed stable cardiac disease -Continue Lipitor and Plavix PAFpatient was being treated with oral amnio and MTP, went into A. fib RVR Tuesday night and was converted to IV amnio -Will continue IV amiodarone at this time and add IV MTP as well -Continue monitoring on telemetry HTNswitching nitro drip to Cardizem for BP control Respiratory - Hypoxic respiratory failurechest x-ray showed significant pulmonary edema versus bilateral infiltrates with small bilateral pleural effusions -Last night AB.50/35/82/27 on BiPAP 05/19, settings switched to CPAP at this time as respiratory failure is strictly hypoxic -COPD etiology less likely per imaging and gas; discontinuing IV steroids at this time -amio toxicity less likely as patient has only been on amiodarone since 02/27 -No evidence of infectious process at this time as procalcitonin and cultures have been negative, will repeat PCT and narrow antibiotics -Cannot rule out possible reaction from blood product as patient received 2 units RBCs Tuesday, however plan would not change from supportive therapy -Most likely related to volume overload/pulmonary edema secondary to CHF exacerbation, will proceed with aggressive diuresis with IV Lasix -Continuing budesonide, duo nebs -Continuous monitoring with pulse ox and wean oxygen support as indicated with saturation goal 92% GI - Abdominal woundabdominal wound appears to be well-healing with negative pressure dressing and antibiotic therapy last cultures grew E. coli, was treated with Augmentin outpatient now converted to Zosyn inpatient, will continue therapy -Follow up with ID and wound care GERDcontinue PPI RENAL/LYTES - AKIdeveloped on previous admission and has improved -Creatinine stable at this time and will continue diuresis with Lasix -Continue to monitor with routine BMPs HypokalemiaIV diuretics likely contributing, continue scheduled potassium infusions -We will repeat BMP and attempt to maintain potassium goal greater than 4.0 - Indwelling Marie catheter, strict I's and O's ENDO - Hyperglycemialikely secondary to IV steroids, was placed on insulin drip last night for blood glucoses greater than 200 per hypoglycemic protocol -Discontinuing IV steroids at this time and will transition drip to sliding scale HEME - Anemiawas found to be anemic on admission with hemoglobin less than 8, was transfused with 2 units RBCs considering respiratory failure -H&H has been stable since, will continue to trend -We will continue ferrous sulfate ID - Blood cultures negative to date ID consulted, will follow up recs MRSA PCR negative, discontinuing vancomycin Procalcitonin negative on admission, will repeat Discontinuing doxycycline as there is no evidence of pneumonia at this time Abdominal wound is being treated with Augmentin outpatient, switch to sedation inpatient, will continue LINES/IV ACCESS - Peripheral IVs, Marie DVT PROPHYLAXIS - SCDs, heparin I have personally spent 40 minutes of critical care time in the direct management of this patient. This is a life/limb threatening event. This includes time spent evaluating patient, direct bedside care, chart review, placing orders, interpretation of diagnostic studies, discussion with consultants, patient, and family members, as well as other required patient management activities. This time is exclusive of all separately billable procedures, and teaching time and separate from and in addition to any other critical care service time. Thank you for allowing us to participate in the care of this patient. Please refer to my attending physician's documentation for any further recommendations. (2) PAF (paroxysmal atrial fibrillation): (3) DVT prophylaxis: (4) Acute respiratory failure with hypoxia: (5) Traumatic hematoma of abdominal wall with infection: (6) Admitted to intensive care unit: (7) GERD (gastroesophageal reflux disease): (8) CAD (coronary artery disease): Supervising Physician Co-Signing Physician Notes Patient seen and examined. Discussed on multidisciplinary rounds as well as with housestaff. Family extensively reviewed. A total of 90 minutes was spent reviewing this case and coordinating care including discussion of potential end-of-life issues. Briefly this 88-year-old female with a complex medical history is brought to the ICU early this morning with hypoxemic respiratory failure and diffuse pulmonary infiltrates. She has a history of intra-abdominal abscess and currently has a wound VAC in place. She has had issues with atrial fibrillation with rapid ventricular response has been on amiodarone. She was felt to be in heart failure with a markedly elevated BNP but could also potential have pneumonia given an elevated procalcitonin and marked leukocytosis. On arrival to the ICU her antibiotics were broadened to include vancomycin and meropenem given her long-standing exposure to Zosyn. Blood pressure control was achieved with Cardene and the patient was weaned off the nitro drip. Beta-blockers were added. She continues to be dependent on noninvasive positive pressure ventilation. We will continue to treat for potentially reversible causes with antibiotics for pneumonia as well as diuresis in the event this is pulmonary edema. Other differential diagnoses would include pulmonary hemorrhage, organizing pneumonia, transfusion associated lung injury, and other diffuse parenchymal diseases. Bronchoscopy is warranted however the patient's tenuous respiratory status currently would necessitate intubation which the patient and family would like to avoid. I advised them that noninvasive positive pressure ventilation is a bridge to either improvement or escalation of therapy. If she does not improve, we have a low threshold for proceeding with bronchoscopy and intubation with mechanical ventilation unless the patient elects not to pursue these interventions. Continue aggressive blood pressure control and diuresis. She is n.p.o. for now due to her respiratory status so most medications that are necessary will be transitioned to IV. We will reassess how she does over the next 12 to 24 hours and reassess. Should the patient's clinical condition deteriorate, intubation will likely be necessary. History of Present Illness Attending Physician: Suhas Oro MD History of Present Illness Mrs. Parra is an 88-year-old female with past medical history significant for diastolic CHF, CAD, PAF, and recent hospitalization from 02/06 to 03/02 for an infected intra-abdominal hematoma from a fall. Following her recent hospitalization she was treated at a rehab facility and discharged on 03/15. She has been following with wound care and ID outpatient. On 03/18 she presented to the emergency department with complaints of dyspnea that has progressively become worse over the past 2 weeks. Per talks with family this started a few days after her hydrochlorothiazide was discontinued due to worsening renal function. In the ED she was found to be in significant respiratory distress and was placed on BiPAP. She was also given Lasix, nebs, and started on IV steroids. She was also found to be anemic with hemoglobin less than 8 and was transfused with 2 units RBCs. Tuesday night she went into A. fib and was placed on amiodarone drip per cardiology recommendations and she converted to sinus rhythm approximately 36 hours later. Last night she was transferred to ICU for worsening symptoms of dyspnea and failure to improve over her hospitalization. Upon arrival to the ICU she was switched from BiPAP to CPAP and she states that her work of breathing has improved since then. She is still slightly to With respiratory rate ranging in the mid 20s. ABG and x-ray from last night showed hypoxic respiratory failure without hypercapnia and pulmonary edema. On interview patient denies headache, dizziness, chest pain, palpitations, abdominal pain, nausea or vomiting. She does report increased work of breathing which has somewhat improved as discussed previously. Allergies Allergy/AdvReac Type Severity Reaction Status Date / Time oxycodone Allergy Mild RASH Verified 03/18/19 08:45 alendronate sodium Allergy Unknown [facility] LIST Verified 03/18/19 08:45 [facility]actrim [facility] 02/07/18 04:16 cefuroxime Allergy Unknown UNKNOWN ON Verified 03/18/19 08:45 LIST Cipro Allergy Unknown Unknown Verified 02/07/18 21:42 ciprofloxacin Allergy Unknown UNKNOWN ON Verified 03/18/19 08:45 LIST codeine Allergy Unknown UNKNOWN ON Verified 03/18/19 08:45 LIST gabapentin Allergy Unknown UNKNOWN ON Verified 03/18/19 08:45 LIST meperidine Allergy Unknown UNKNOWN ON Verified 03/18/19 08:45 LIST propoxyphene Allergy Unknown UNKNOWN ON Verified 03/18/19 08:45 LIST Sulfa (Sulfonamide Allergy Unknown UNKNOWN ON Verified 03/18/19 08:45 Antibiotics) LIST sulfamethoxazole Allergy [facility] Verified 03/18/19 08:45 trimethoprim Allergy [facility] Verified 03/18/19 08:45 amphetamine AdvReac Severe UNKNOWN ON Verified 03/18/19 08:45 LIST dextroamphetamine AdvReac Severe UNKNOWN ON Verified 03/18/19 08:45 LIST hydrochlorothiazide AdvReac Intermediate GI DISTRESS Verified 03/18/19 08:45 methyldopa AdvReac Intermediate GI DISTRESS Verified 03/18/19 08:45 Home Medications Home Medications Medication Instructions Recorded Confirmed Type Breo Ellipta 1 inh INHALATION QAM 12/26/18 03/18/19 History albuterol sulfate [Ventolin HFA] 1 - 2 puff INHALATION Q4 PRN 12/26/18 03/18/19 History amlodipine 10 mg PO QAM 12/26/18 03/18/19 History atorvastatin 20 mg PO HS 12/26/18 03/18/19 History calcium carbonate 300 mg PO BID 12/26/18 03/18/19 History cholecalciferol (vitamin D3) 2,000 unit PO QAM 12/26/18 03/18/19 History [Vitamin D3] fluoxetine 10 mg PO QAM 12/26/18 03/18/19 History fluoxetine 20 mg PO QPM 12/26/18 03/18/19 History metoprolol succinate 100 mg PO QAM 12/26/18 03/18/19 History multivitamin 1 tab PO PM 12/26/18 03/18/19 History omega 1-qdk-jaz-fish oil [Fish Oil] 1 cap PO QAM 12/26/18 03/18/19 History potassium chloride 10 meq PO QAM 12/26/18 03/18/19 History levothyroxine 25 mcg PO HS 02/06/19 03/18/19 History amiodarone 200 mg PO QAM #30 tab 03/02/19 03/18/19 Rx ferrous sulfate 325 mg PO BID #60 tab 03/02/19 03/18/19 Rx magnesium oxide 400 mg PO BID #60 tab 03/02/19 03/18/19 Rx acetaminophen 500 mg capsule 500 mg PO Q4H PRN MDD 6 tablets in 03/05/19 03/18/19 History 24 hours docusate sodium 100 mg capsule 100 mg PO BID 03/05/19 03/18/19 History Lactobacillus acidophilus capsule 100 mg PO QAM 03/16/19 03/18/19 History amoxicillin 875 mg-potassium 1 tab PO BID #60 tab 03/16/19 03/18/19 Rx clavulanate 125 mg tablet omeprazole 20 mg capsule,delayed 20 mg PO QAM #90 cap 03/16/19 03/18/19 History release clopidogrel [Plavix] 75 mg PO QAM 03/18/19 03/18/19 History lisinopril 40 mg tablet 40 mg PO DAILY #90 tab 03/21/19 03/21/19 History omeprazole 20 mg tablet,delayed PO tab 03/21/19 03/21/19 History release triamterene 37.5 1 cap PO DAILY #90 cap 03/21/19 03/21/19 History mg-hydrochlorothiazide 25 mg capsule Patient History Medical History A-fib (Chronic) Abscess of abdominal wall (Chronic) Chronic kidney disease, stage 3a (Chronic) Metabolic encephalopathy (Resolved) Tremor (Chronic) Vertigo (Resolved) Transient ischemic attack (Resolved) Obstructive sleep apnea, adult (Chronic) Hypothyroidism (Chronic) Hyperlipidemia (Chronic) Depression (Chronic) Chronic cerebral ischemia (Resolved) Chronic asthmatic bronchitis (Chronic) CAD (coronary artery disease) (Chronic) Asthma (Chronic) HTN (hypertension) (Chronic) COPD (chronic obstructive pulmonary disease) (Chronic) Surgical History S/P cholecystectomy (Resolved) S/P hernia repair (Resolved) S/P hysterectomy (Resolved) Family History Mother , age 86 of an [place]. She also had COPD. Myocardial infarction COPD (chronic obstructive pulmonary disease) Father , age 47 of an [place]. 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 Other Information That Helps Us Care for You: No other: 4 children, 1 is already Feels Safe at Home: Yes Safety Concerns: Feels Safe At This Time Smoking Status: Never smoker Do You Dip or Chew Tobacco: No ; Hx Alcohol Use: No Hx Substance Use: No Childhood Exposure to Second-Hand Smoke: No Review of Systems Review of Systems: All systems reviewed & are unremarkable except as noted in HPI & below Physical Exam Eyes: PERRL, conjunctivae normal, anicteric sclerae ENMT: external ear and nose normal, oropharynx normal Neck: trachea midline, no thyromegaly Respiratory: Patient is slightly tachypneic with respiratory rate in the 20s, bilateral coarse crackles with diminished lung sounds bilaterally at bases Cardiovascular: RRR, no murmur, no edema Rate/Rhythm: regular rate and regular rhythm Heart Sounds: normal S1 and normal S2 Gastrointestinal (Abdomen): normal bowel sounds, soft, nontender, no hepatosplenomegaly Skin: no rashes, warm and dry Abdominal wound with negative pressure dressing appears to be well-healing, no rashes, skin is warm and dry Neurologic: moves all extremities Cranial Nerves: PERRL Genitourinary: Indwelling Marie catheter present Results & Data Vital Signs (Past 12 Hours) Vital Signs Temp Pulse Pulse Resp BP BP Pulse Ox 03/22/19 07:10 63 27 H 92 03/22/19 07:09 63 27 H 94 03/22/19 06:15 36.1 C L 66 27 H 153/99 H 95 03/22/19 06:00 68 26 H 159/95 H 95 03/22/19 05:45 68 27 H 156/91 H 94 03/22/19 05:40 67 28 H 91 03/22/19 05:30 68 26 H 152/81 H 92 03/22/19 05:15 67 27 H 130/80 85 L 03/22/19 05:01 67 28 H 149/90 H 94 03/22/19 05:00 66 27 H 95 03/22/19 04:45 66 25 H 136/92 96 03/22/19 04:30 67 24 147/85 H 95 03/22/19 04:15 66 27 H 144/80 H 96 03/22/19 04:00 65 25 H 129/85 98 03/22/19 03:45 66 27 H 133/76 97 03/22/19 03:35 68 33 H 94 03/22/19 03:34 67 24 93 03/22/19 03:31 67 32 H 144/79 H 94 03/22/19 03:30 68 39 H 94 03/22/19 03:15 66 28 H 110/75 94 03/22/19 03:00 65 29 H 133/69 95 03/22/19 02:45 65 26 H 131/73 96 03/22/19 02:35 67 26 H 132/70 97 03/22/19 02:30 68 27 H 127/77 96 03/22/19 02:25 69 27 H 133/78 96 03/22/19 02:20 70 33 H 140/76 96 03/22/19 02:15 69 28 H 138/77 96 03/22/19 02:10 72 32 H 136/82 96 03/22/19 02:05 75 31 H 144/80 H 95 03/22/19 02:00 70 36 H 137/76 93 03/22/19 01:55 70 30 H 132/79 93 03/22/19 01:50 72 37 H 146/84 H 93 03/22/19 01:45 74 36 H 146/83 H 93 03/22/19 01:40 75 36 H 150/79 H 91 03/22/19 01:35 77 39 H 150/85 H 90 03/22/19 01:30 80 39 H 158/83 H 90 03/22/19 01:25 83 40 H 152/86 H 88 L 03/22/19 01:20 87 38 H 160/88 H 89 L 03/22/19 01:15 98 H 34 H 178/105 H 86 L 03/22/19 01:10 93 H 30 H 82 L 03/22/19 01:01 91 H 36 H 179/90 H 84 L 03/22/19 01:00 75 38 H 84 L 03/22/19 00:50 95 H 36 H 84 L 03/22/19 00:46 98 H 33 H 199/125 H 82 L 03/22/19 00:40 36.7 C 101 H 33 H 85 L 03/22/19 00:01 36.8 C 75 28 H 153/82 H 91 03/21/19 22:58 79 34 H 91 03/21/19 22:54 79 34 H 91 03/21/19 22:39 116 H 30 H 91 Laboratory Results Laboratory Results - last 24 hr 03/21/19 03/21/19 03/21/19 19:34 21:55 22:31 WBC RBC Hgb Hct MCV MCH MCHC RDW Std Deviation RDW Coeff of Elliot Plt Count MPV Immature Gran % (Auto) Neut % (Auto) Lymph % (Auto) [place] % (Auto) Eos % (Auto) Baso % (Auto) Immature Gran # (Auto) Neut # (Auto) Lymph # (Auto) [place] # (Auto) Eos # (Auto) Baso # (Auto) Ovalocytes ABG pH 7.50 H ABG pCO2 35 ABG pO2 82 ABG HCO3 27 H ABG O2 Saturation 96.3 H ABG Base Excess 3.5 H Hubert Test Pos Barometric Pressure 726.8 Oxygen Given 15L Sodium 139 Potassium 3.5 D Chloride 100 Carbon Dioxide 31 Anion Gap 8.0 BUN 35 H Creatinine 1.19 Est Cr Clr Drug Dosing 30.7 Est GFR ( Amer) 47.5 Est GFR (Non-Af Amer) 41.0 BUN/Creatinine Ratio 29.2 H Glucose 182 H POC Glucose Calcium 9.6 Phosphorus Magnesium 1.9 Total Bilirubin 0.4 AST 14 L ALT 37 Alkaline Phosphatase 92 Troponin I NT-Pro-B Natriuret Pep Total Protein 7.1 Albumin 2.8 L Globulin 4.3 H Albumin/Globulin Ratio 0.6 L Procalcitonin Nasal Screen MRSA (PCR) Negative Random Vancomycin 03/22/19 03/22/19 03/22/19 01:18 01:18 04:06 WBC 22.91 H RBC 4.04 L Hgb 11.5 L Hct 35.0 L MCV 86.6 MCH 28.5 MCHC 32.9 RDW Std Deviation 53.3 H RDW Coeff of Elliot 16.9 H Plt Count 494 H MPV 8.2 Immature Gran % (Auto) 1.0 Neut % (Auto) 89.0 Lymph % (Auto) 5.9 [place] % (Auto) 4.1 Eos % (Auto) 0.0 Baso % (Auto) 0.0 Immature Gran # (Auto) 0.22 H Neut # (Auto) 20.37 H Lymph # (Auto) 1.36 [place] # (Auto) 0.95 H Eos # (Auto) 0.00 Baso # (Auto) 0.01 Ovalocytes 1+ ABG pH ABG pCO2 ABG pO2 ABG HCO3 ABG O2 Saturation ABG Base Excess Hubert Test Barometric Pressure Oxygen Given Sodium 140 Potassium 4.0 Chloride 102 Carbon Dioxide 29 Anion Gap 9.0 BUN 34 H Creatinine 1.22 H Est Cr Clr Drug Dosing 30.0 Est GFR ( Amer) 46.1 Est GFR (Non-Af Amer) 39.8 BUN/Creatinine Ratio 28.0 H Glucose 225 H POC Glucose 133 H Calcium 8.8 Phosphorus 3.5 Magnesium 1.9 Total Bilirubin 0.5 AST 14 L ALT 37 Alkaline Phosphatase 92 Troponin I < 0.015 NT-Pro-B Natriuret Pep Total Protein 7.2 Albumin 3.0 L Globulin 4.2 H Albumin/Globulin Ratio 0.7 L Procalcitonin Nasal Screen MRSA (PCR) Random Vancomycin 08/08/19 08/08/19 08/08/19 04:10 04:10 04:10 WBC 24.18 H RBC 3.74 L Hgb 10.6 L Hct 33.1 L MCV 88.5 MCH 28.3 MCHC 32.0 RDW Std Deviation 54.1 H RDW Coeff of Elliot 16.8 H Plt Count 367 MPV 8.2 Immature Gran % (Auto) Neut % (Auto) Lymph % (Auto) [place] % (Auto) Eos % (Auto) Baso % (Auto) Immature Gran # (Auto) Neut # (Auto) Lymph # (Auto) [place] # (Auto) Eos # (Auto) Baso # (Auto) Ovalocytes ABG pH ABG pCO2 ABG pO2 ABG HCO3 ABG O2 Saturation ABG Base Excess Hubert Test Barometric Pressure Oxygen Given Sodium 142 Potassium 3.3 L D Chloride 103 Carbon Dioxide 31 Anion Gap 8.0 BUN 35 H Creatinine 1.09 Est Cr Clr Drug Dosing 33.6 Est GFR ( Amer) 52.9 Est GFR (Non-Af Amer) 45.6 BUN/Creatinine Ratio 32.4 H Glucose 124 H POC Glucose Calcium 8.8 Phosphorus Magnesium Total Bilirubin AST ALT Alkaline Phosphatase Troponin I NT-Pro-B Natriuret Pep Total Protein Albumin Globulin Albumin/Globulin Ratio Procalcitonin Nasal Screen MRSA (PCR) Random Vancomycin 21.9 03/22/19 03/22/19 03/22/19 05:09 06:05 06:55 WBC RBC Hgb Hct MCV MCH MCHC RDW Std Deviation RDW Coeff of Elliot Plt Count MPV Immature Gran % (Auto) Neut % (Auto) Lymph % (Auto) [place] % (Auto) Eos % (Auto) Baso % (Auto) Immature Gran # (Auto) Neut # (Auto) Lymph # (Auto) [place] # (Auto) Eos # (Auto) Baso # (Auto) Ovalocytes ABG pH ABG pCO2 ABG pO2 ABG HCO3 ABG O2 Saturation ABG Base Excess Hubert Test Barometric Pressure Oxygen Given Sodium Potassium Chloride Carbon Dioxide Anion Gap BUN Creatinine Est Cr Clr Drug Dosing Est GFR ( Amer) Est GFR (Non-Af Amer) BUN/Creatinine Ratio Glucose POC Glucose 121 H 127 H 117 H Calcium Phosphorus Magnesium Total Bilirubin AST ALT Alkaline Phosphatase Troponin I NT-Pro-B Natriuret Pep Total Protein Albumin Globulin Albumin/Globulin Ratio Procalcitonin Nasal Screen MRSA (PCR) Random Vancomycin 03/22/19 03/22/19 03/22/19 08:00 08:06 08:06 WBC RBC Hgb Hct MCV MCH MCHC RDW Std Deviation RDW Coeff of Elliot Plt Count MPV Immature Gran % (Auto) Neut % (Auto) Lymph % (Auto) [place] % (Auto) Eos % (Auto) Baso % (Auto) Immature Gran # (Auto) Neut # (Auto) Lymph # (Auto) [place] # (Auto) Eos # (Auto) Baso # (Auto) Ovalocytes ABG pH ABG pCO2 ABG pO2 ABG HCO3 ABG O2 Saturation ABG Base Excess Hubert Test Barometric Pressure Oxygen Given Sodium Potassium Chloride Carbon Dioxide Anion Gap BUN Creatinine Est Cr Clr Drug Dosing Est GFR ( Amer) Est GFR (Non-Af Amer) BUN/Creatinine Ratio Glucose POC Glucose 116 H Calcium Phosphorus Magnesium Total Bilirubin AST ALT Alkaline Phosphatase Troponin I NT-Pro-B Natriuret Pep 82167 H Total Protein Albumin Globulin Albumin/Globulin Ratio Procalcitonin Pending Nasal Screen MRSA (PCR) Random Vancomycin Medications Administered Home Medications Breo Ellipta 1 inh INHALATION QAM 12/26/18 [History Confirmed 03/18/19] albuterol sulfate [Ventolin HFA] 1 - 2 puff INHALATION Q4 PRN 12/26/18 [History Confirmed 03/18/19] amlodipine 10 mg PO QAM 12/26/18 [History Confirmed 03/18/19] atorvastatin 20 mg PO HS 12/26/18 [History Confirmed 03/18/19] calcium carbonate 300 mg PO BID 12/26/18 [History Confirmed 03/18/19] cholecalciferol (vitamin D3) [Vitamin D3] 2,000 unit PO QAM 12/26/18 [History Confirmed 03/18/19] fluoxetine 10 mg PO QAM 12/26/18 [History Confirmed 03/18/19] fluoxetine 20 mg PO QPM 12/26/18 [History Confirmed 03/18/19] metoprolol succinate 100 mg PO QAM 12/26/18 [History Confirmed 03/18/19] multivitamin 1 tab PO PM 12/26/18 [History Confirmed 03/18/19] omega 9-pzw-nmh-fish oil [Fish Oil] 1 cap PO QAM 12/26/18 [History Confirmed 03/18/19] potassium chloride 10 meq PO QAM 12/26/18 [History Confirmed 03/18/19] levothyroxine 25 mcg PO HS 02/06/19 [History Confirmed 03/18/19] amiodarone 200 mg PO QAM #30 tab 03/02/19 [Rx Confirmed 03/18/19] ferrous sulfate 325 mg PO BID #60 tab 03/02/19 [Rx Confirmed 03/18/19] magnesium oxide 400 mg PO BID #60 tab 03/02/19 [Rx Confirmed 03/18/19] acetaminophen 500 mg capsule 500 mg PO Q4H PRN MDD 6 tablets in 24 hours 03/05/19 [History Confirmed 03/18/19] docusate sodium 100 mg capsule 100 mg PO BID 03/05/19 [History Confirmed 03/18/19] Lactobacillus acidophilus capsule 100 mg PO QAM 03/16/19 [History Confirmed 03/18/19] amoxicillin 875 mg-potassium clavulanate 125 mg tablet 1 tab PO BID #60 tab 03/16/19 [Rx Confirmed 03/18/19] omeprazole 20 mg capsule,delayed release 20 mg PO QAM #90 cap 03/16/19 [History Confirmed 03/18/19] clopidogrel [Plavix] 75 mg PO QAM 03/18/19 [History Confirmed 03/18/19] lisinopril 40 mg tablet 40 mg PO DAILY #90 tab 03/21/19 [History Confirmed 03/21/19] omeprazole 20 mg tablet,delayed release PO tab 03/21/19 [History Confirmed 03/21/19] triamterene 37.5 mg-hydrochlorothiazide 25 mg capsule 1 cap PO DAILY #90 cap 03/21/19 [History Confirmed 03/21/19] Active Medications Acetaminophen (Tylenol) 500 mg PO Q4H PRN PRN Reason: pain/fever Stop: 04/17/19 11:22 Albuterol (Duoneb) 3 ml NEB Q4R ROD Stop: 04/17/19 15:59 Last Admin: 03/22/19 07:05 Dose: 3 ml Documented by: Amiodarone HCl (Cordarone) 200 mg PO QAM ROD Stop: 04/18/19 08:59 Last Admin: 03/21/19 08:43 Dose: 200 mg Documented by: Atorvastatin Calcium (Lipitor) 20 mg PO [facility] Stop: 04/17/19 20:59 Last Admin: 03/21/19 19:53 Dose: Not Given Documented by: Budesonide (Pulmicort Respules) 0.5 mg NEB BIDR [facility] Stop: 04/20/19 19:59 Last Admin: 03/22/19 07:12 Dose: 0.5 mg Documented by: Calcium Carbonate (Os-Jamison 500) 1,250 mg PO BID [facility] Stop: 04/17/19 20:59 Last Admin: 03/22/19 08:49 Dose: Not Given Documented by: Clopidogrel Bisulfate (Plavix) 75 mg PO QAM [facility] Stop: 04/18/19 08:59 Last Admin: 03/22/19 08:49 Dose: Not Given Documented by: Dextrose (Dextrose 50%) 25 - 50 ml IV UD PRN; Protocol PRN Reason: Hypoglycemia Protocol Stop: 04/21/19 02:44 Docusate Sodium (Colace) 100 mg PO BID [facility] Stop: 04/17/19 20:59 Last Admin: 03/22/19 08:48 Dose: Not Given Documented by: Ferrous Sulfate (Feosol) 325 mg PO BIDM [facility] Stop: 04/17/19 16:59 Last Admin: 03/22/19 08:48 Dose: Not Given Documented by: Fluoxetine HCl (Prozac) 10 mg PO QAM [facility] Stop: 04/18/19 08:59 Last Admin: 03/22/19 08:49 Dose: Not Given Documented by: Fluoxetine HCl (Prozac) 20 mg PO QPM [facility] Stop: 04/17/19 20:59 Last Admin: 03/21/19 19:54 Dose: Not Given Documented by: Fluticasone/Vilanterol (Breo Ellipta) 1 puffs INH DAILY [facility] Stop: 04/18/19 08:59 Last Admin: 03/22/19 08:48 Dose: Not Given Documented by: Glucagon (Glucagen) 1 mg IM UD PRN; Protocol PRN Reason: Hypoglycemia Protocol Stop: 04/21/19 02:44 Glucose (Glucose 40%) 15 - 30 gm PO UD PRN; Protocol PRN Reason: Hypoglycemia Protocol Stop: 04/21/19 02:44 Glucose (Dex4 Glucose) 4 - 8 tabs PO UD PRN; Protocol PRN Reason: Hypoglycemia Protocol Stop: 04/21/19 02:44 Heparin Sodium (Porcine) (Heparin Sodium (Porcine)) 5,000 units SQ Q12 [facility] Stop: 04/20/19 20:59 Last Admin: 03/22/19 08:52 Dose: 5,000 units Documented by: Hydralazine HCl (Hydralazine Hcl) 10 mg IV Q4 PRN PRN Reason: SBP >140 Stop: 04/21/19 07:04 Sodium Chloride (Nss) 250 mls @ 15 mls/hr IV .[id number] PRN PRN Reason: For Transfusion Stop: 04/18/19 11:07 Amiodarone HCl/Dextrose (Nexterone / D5w) 360 mg in 200 mls @ 16.667 mls/hr IV .Q12H [facility] Stop: 04/20/19 16:29 Last Admin: 03/22/19 02:00 Dose: 0.5 mg/min, 16.7 mls/hr Documented by: Piperacillin Sod/Tazobactam (Sod 3.375 gm/ Dextrose) 115 mls @ 28.75 mls/hr IV Q8H [facility]; Protocol Stop: 03/29/19 01:59 Last Infusion: 03/22/19 06:56 Dose: Infused Documented by: Furosemide 40 mg/ Syringe 4 mls @ 4 mls/min IV Q8H [facility] Stop: 04/21/19 07:59 Last Admin: 03/22/19 07:57 Dose: 4 mls/min Documented by: Magnesium Sulfate/Dextrose (Magnesium Sulfate / D5w) 1 gm in 100 mls @ 100 mls/hr IV ONE ONE Stop: 03/22/19 09:14 Last Admin: 03/22/19 08:47 Dose: 100 mls/hr Documented by: Insulin Aspart (Novolog Flexpen) 0 units SC Q6 [facility] Stop: 04/21/19 11:59 Levothyroxine Sodium (Synthroid) 25 mcg PO HS [facility] Stop: 04/17/19 20:59 Last Admin: 03/21/19 19:54 Dose: Not Given Documented by: Magnesium Oxide (Mag-Ox) 400 mg PO BID [facility] Stop: 04/17/19 20:59 Last Admin: 03/22/19 08:49 Dose: Not Given Documented by: Metoprolol Succinate (Toprol Xl) 100 mg PO QAM [facility] Stop: 04/18/19 08:59 Last Admin: 03/22/19 08:49 Dose: Not Given Documented by: Metoprolol Tartrate (Lopressor) 5 mg IV Q4 PRN PRN Reason: sbp> 185, dbp >95, HR >120 Stop: 04/19/19 09:17 Last Admin: 03/20/19 18:15 Dose: 5 mg Documented by: Miscellaneous ([facility] Protocol For Hyperglycemia) 1 ea N/A PRN PRN; Protocol PRN Reason: Hyperglycemia Protocol Stop: 03/24/19 02:32 Miscellaneous (Carbohydrates For Hypoglycemia) 15 - 30 gm PO PRN PRN PRN Reason: Hypoglycemia Treatment Stop: 04/21/19 02:44 Miscellaneous ([facility] Electrolyte Replacement Protocol) 1 ea N/A UD PRN PRN Reason: for e-lyte repletion Stop: 03/29/19 07:10 Miscellaneous Information (Consult) 1 ea N/A UD PRN PRN Reason: Consult Stop: 04/20/19 20:16 Miscellaneous Information (Consult Glycemic Management Pharmacy) 1 ea N/A UD PRN PRN Reason: Consult Stop: 04/21/19 02:45 Multivitamins (Multivitamin Tab) 1 tab PO PM [facility] Stop: 04/17/19 20:59 Last Admin: 03/21/19 19:53 Dose: Not Given Documented by: Nystatin (Mycostatin) 1 appln EXT TID [facility] Stop: 04/17/19 18:29 Last Admin: 03/22/19 08:51 Dose: 1 appln Documented by: Ondansetron HCl (Zofran) 4 mg IV Q6H PRN PRN Reason: Nausea Stop: 04/17/19 11:22 Last Admin: 03/22/19 05:10 Dose: 4 mg Documented by: Pantoprazole Sodium (Protonix) 40 mg PO DAILY [facility] Stop: 04/20/19 08:59 Last Admin: 03/22/19 08:49 Dose: Not Given Documented by: Potassium Chloride (Klor-Con M10) 10 meq PO QAM [facility] Stop: 04/18/19 08:59 Last Admin: 03/22/19 08:49 Dose: Not Given Documented by: Saccharomyces Boulardii (Florastor) 250 mg PO DAILY [facility] Stop: 04/18/19 08:59 Last Admin: 03/22/19 08:48 Dose: Not Given Documented by: Vitamin D (Vitamin D3) 2,000 units PO QAM [facility] Stop: 04/18/19 08:59 Last Admin: 03/22/19 08:49 Dose: Not Given Documented by: PG Care Time/CCT Total # of Minutes Spent Total Time Spent with Patient: Total time spent is greater than 50% in coordination of care (as documented) at patient's floor/unit and/or counseling patient: Critical Care Time: Yes Total Critical Care Time: 40 (1) Traumatic hematoma of abdominal wall with infection Encounter type: subsequent encounter Qualified Code(s): S30.1XXD - Contusion of abdominal wall, subsequent encounter; L08.9 - Local infection of the skin and subcutaneous tissue, unspecified (2) CAD (coronary artery disease) Associated angina: without angina Coronary Disease-Associated Artery/Lesion type: [place] artery [place] vs. transplanted heart: [place] heart Qualified Code(s): I25.10 - Atherosclerotic heart disease of [place] coronary artery w ithout angina pectoris (3) GERD (gastroesophageal reflux disease) Esophagitis presence: esophagitis presence not specified Qualified Code(s): K21.9 - Gastro-esophageal reflux disease without esophagitis
[2019-03-22] MEDS ORDERED: ICU PROTOCOL FOR HYPERGLYCEMIA SCH (09:00)
--- NOTE | 2019-03-22 12:39 | Hospitalist Progress Note ---
Date of Service March 22, 2019 Assessment & Plan (1) Acute respiratory failure with hypoxia: Chest x-ray worsened since admission - patient required transfer to ICU 03/22 for hypoxic respiratory failure and chest pain. Placed on bipap and nitro gtt. Nitro gtt now discontinued Acute on chronic diastolic heart failure associated with cessation of diuretic therapy as an outpatient and A.fib Continue to doubt pulmonary toxicity from amiodarone - this was initiated on 02/27/19 - Asthma/COPD exacerbation could also be contributing Continue IV zosyn though procalcitonin was normal - WBCs today 24, patient has been receiving IV steroids which were discontinued last night Aggressive diuresis with furosemide Procurement Professional consulted (2) CHF (congestive heart failure): Echo 02/12/19 with preserved EF. Therefore acute on chronic diastolic heart failure Possible etiologies for her decompensated diastolic CHF -- uncontrolled a.fib, lack of diuretic (was on HCTZ when she left [facility]; it was apparently d/c while at rehab), dietary issues, etc. No evidence of ischemia. Symptoms gradually worsened over 1-2 weeks. Hydrochlorothiazide was stopped at discharge from [facility] Patient converted to SR from Afib RVR 03/21 while on amiodarone gtt and beta- blockers per cardiology Continue aggressive diuresis as above Dr Horner will follow in consult (3) A-fib: During her previous prolonged hospitalization she had 2 episodes of PAF with one lasting over 24 hours. She may be having runs of PAF outside the hospital which could predispose her diastolic heart failure. She does not have symptoms from such. Changed oral amiodarone to amiodarone drip per cardiology recommendation 03/21, continue PRN metoprolol augmenting her oral metoprolol dosing - cardiology making final decisions regarding her rate control. Converted to SR 03/21 During prior hospital stay she was significantly anemic due to bleeding from her intra-abdominal hematoma; thus anticoagulation was deferred. Will continue to defer on such. I doubt pulmonary toxicity from amiodarone; theoretically possible but unlikely given that it would be very early after it was initiated (<2 weeks). (4) Pneumonia: Procalcitonin normal WBCs elevated at 24 though in the setting of IV steroid administration - unclear if infection is truly playing a role Continue Zosyn Doxycycline discontinued per managing partner [employer] [place] BC negative (5) CAD (coronary artery disease): History of such. Troponin is negative; she has no symptoms even with rapid ventricular rate Nonobstructive coronary artery disease identified on a cardiac catheterization in May 2009. (6) Asthma: IV steroids now dc'd, continue scheduled nebs BIPAP (7) Chronic kidney disease, stage 3a: Cr stable will follow with increased diuresis (8) HTN (hypertension): Cont home medications. (9) Hyperlipidemia: continue atorvastatin (10) Hypothyroidism: TSH mildly elevated. Takes synthroid 25mcg daily. (11) Obstructive sleep apnea, adult: CPAP unit from home for as needed and night-time use when no longer requiring bipap (12) Traumatic hematoma of abdominal wall with infection: Had spontaneous rupture of large intra-abdominal hematoma in February during her prolonged stay. The hematoma was due to a prior fall. Following rupture Dr Pablo performed I/D in the OR. Cultures showed e.coli. She has been on augmentin since and will need to resume it when Zosyn dc'd as she is meant to continue for at least [address] Espinosa The abdominal wound is getting smaller with use of Wound Vac. It is changed M/W/F. Wound care clinic follows this. Will consult the wound care nurse. (13) Anemia: Has received 2 units of blood cells this admission Previous work-up showed the anemia was likely due to bleeding from the intra- abdominal hematoma and also anemia of chronic disease. Continue ferrous sulfate. Patient did not have any melena or obvious blood loss source of her hemoglobin - hgb has been stable for multiple days (14) Transient ischemic attack: Had TIA during prior admission. Also with h/o CVA many years ago. On Plavix for secondary prevention. Ideally should be on anticoagulation because of PAF but this has been deferred -- see discussion above. (15) DVT prophylaxis: dvt prophylaxis heparin bid, SCDs Subjective Ms. Parra is comfortable but fatigued, on bipap. Her family is bedside. I spent time with answering their questions along with managing partner [employer] [place] [employer] Review of Systems Review of Systems: All systems reviewed & are unremarkable except as noted in HPI & below Physical Exam Physical Exam: General: no distress Eyes: normal inspection, PERLL Respiratory: chest non tender, coarse breath sounds bilaterally with expiratory wheezes, no respiratory distress, no accessory muscle use Cardiac: regular rate and rhythm, no rub or gallop, no murmur, no edema, no jvd GI/: active bowel sounds, no abd pain or tenderness, soft, non distended Extremities: normal range of motion, normal strength, non tender Neuro/Psych: alert and oriented x 3, normal mood and affect Skin: normal color, dry Results & Data Vital Signs (Past 12 Hours) Vital Signs Temp Pulse Pulse Pulse Resp BP Pulse Ox 03/22/19 11:49 59 L 24 91 03/22/19 10:00 61 26 H 119/65 89 L 03/22/19 09:45 63 25 H 133/74 90 03/22/19 09:30 64 24 137/91 91 03/22/19 09:15 60 24 151/69 H 93 03/22/19 09:00 62 27 H 136/81 93 03/22/19 08:00 35.8 C L 63 28 H 149/77 H 91 03/22/19 07:10 63 27 H 92 03/22/19 07:09 63 27 H 94 03/22/19 07:00 64 25 H 147/89 H 95 03/22/19 06:15 36.1 C L 66 27 H 153/99 H 95 03/22/19 06:00 68 26 H 159/95 H 95 03/22/19 05:45 68 27 H 156/91 H 94 03/22/19 05:40 67 28 H 91 03/22/19 05:30 68 26 H 152/81 H 92 03/22/19 05:15 67 27 H 130/80 85 L 03/22/19 05:01 67 28 H 149/90 H 94 03/22/19 05:00 66 27 H 95 03/22/19 04:45 66 25 H 136/92 96 03/22/19 04:30 67 24 147/85 H 95 03/22/19 04:15 66 27 H 144/80 H 96 03/22/19 04:00 65 25 H 129/85 98 03/22/19 03:45 66 27 H 133/76 97 03/22/19 03:35 68 33 H 94 03/22/19 03:34 67 24 93 03/22/19 03:31 67 32 H 144/79 H 94 03/22/19 03:30 68 39 H 94 03/22/19 03:15 66 28 H 110/75 94 03/22/19 03:00 65 29 H 133/69 95 03/22/19 02:45 65 26 H 131/73 96 03/22/19 02:35 67 26 H 132/70 97 03/22/19 02:30 68 27 H 127/77 96 03/22/19 02:25 69 27 H 133/78 96 03/22/19 02:20 70 33 H 140/76 96 03/22/19 02:15 69 28 H 138/77 96 03/22/19 02:10 72 32 H 136/82 96 03/22/19 02:05 75 31 H 144/80 H 95 03/22/19 02:00 70 36 H 137/76 93 03/22/19 01:55 70 30 H 132/79 93 03/22/19 01:50 72 37 H 146/84 H 93 03/22/19 01:45 74 36 H 146/83 H 93 03/22/19 01:40 75 36 H 150/79 H 91 03/22/19 01:35 77 39 H 150/85 H 90 03/22/19 01:30 80 39 H 158/83 H 90 03/22/19 01:25 83 40 H 152/86 H 88 L 03/22/19 01:20 87 38 H 160/88 H 89 L 03/22/19 01:15 98 H 34 H 178/105 H 86 L 03/22/19 01:10 93 H 30 H 82 L 03/22/19 01:01 91 H 36 H 179/90 H 84 L 03/22/19 01:00 75 38 H 84 L 03/22/19 00:50 95 H 36 H 84 L 03/22/19 00:46 98 H 33 H 199/125 H 82 L 03/22/19 00:40 36.7 C 101 H 33 H 85 L PG Care Time/CCT Total # of Minutes Spent Total Time Spent with Patient: Total time spent is greater than 50% in coordination of care (as documented) at patient's floor/unit and/or counseling patient: (1) CHF (congestive heart failure) Heart failure chronicity: acute Heart failure type: unspecified Qualified Code(s): I50.9 - Heart failure, unspecified (2) A-fib Atrial fibrillation type: unspecified Qualified Code(s): I48.91 - Unspecified atrial fibrillation (3) Pneumonia Laterality: right Lung location: lower lobe of lung Pneumonia type: due to unspecified organism Qualified Code(s): J18.1 - Lobar pneumonia, unspecified organism (4) CAD (coronary artery disease) Coronary Disease-Associated Artery/Lesion type: [place] artery [place] vs. transplanted heart: [place] heart Associated angina: without angina Qualified Code(s): I25.10 - Atherosclerotic heart disease of [place] coronary artery witho ut angina pectoris (5) Asthma Asthma severity: unspecified severity Asthma persistence: unspecified Asthma complication type: uncomplicated Qualified Code(s): J45.909 - Unspecified asthma, uncomplicated (6) HTN (hypertension) Hypertension type: essential hypertension Qualified Code(s): I10 - Essential (primary) hypertension (7) Hyperlipidemia Hyperlipidemia type: mixed hyperlipidemia Qualified Code(s): E78.2 - Mixed hyperlipidemia (8) Hypothyroidism Hypothyroidism type: acquired Qualified Code(s): E03.9 - Hypothyroidism, unspecified (9) Traumatic hematoma of abdominal wall with infection Encounter type: subsequent encounter Qualified Code(s): S30.1XXD - Contusion of abdominal wall, subsequent encounter; L08.9 - Local infection of the skin and subcutaneous tissue, unspecified (10) Anemia Anemia type: unspecified type Qualified Code(s): D64.9 - Anemia, unspecified
[2019-03-22 13:24] LABS: BUN Creatinine Ratio 31.2 (10-20); Calcium 9.3 mg/dl (8.5-10.1); Creatinine Clr Calc Pharmacy 33.3 ml/min; Est GFR (African American) 52.3; Est GFR (Non-African American) 45.1; Magnesium 2.2 mg/dl (1.8-2.4); Potassium 3.3 mmol/L (3.5-5.1)
--- NOTE | 2019-03-22 13:31 | Pharmacy Report ---
Pharmacy Glycemic Short Note 2 - Date of Service March 22, 2019 - Glycemic Short BSG Results (Last 24 hours): 03/21/19 03/22/19 03/22/19 21:55 01:18 04:06 Glucose 182 H 225 H POC Glucose 133 H 03/22/19 03/22/19 03/22/19 04:10 05:09 06:05 Glucose 124 H POC Glucose 121 H 127 H 03/22/19 03/22/19 03/22/19 06:55 08:00 11:48 Glucose POC Glucose 117 H 116 H 168 H OUTPATIENT ANTIDIABETIC REGIMEN: * none ASSESSMENT: * Patient initiated on an insulin drip overnight per ICU protocol given BSG 225mg/dL. As patient does not have a history of diabetes and does not take any agents as an outpatient, this was likely a stress response in combination with high dose IV steroids. As BSGs remained steady this morning and insulin infusion was < 2 units/hr consistently and IV steroids were discontinued, it was decided at multidisciplinary rounds to stop the insulin infusion and continue on only a novolog sliding scale. Lunch BSG did increase but remained acceptable and may still be influenced by last dose of solumedrol at 0800. Will reassess need for basal prandial coverage as needed. PLAN FOR INPATIENT GLYCEMIC CONTROL: * Basal insulin * none * Bolus insulin * NovoLog per scale ACHS or Q6hrs while NPO * Goal Range: Low 120 mg/dL - High 160 mg/dL * Correction Factor: 35 mg/dL/unit
[2019-03-22] MEDS ORDERED: VANCOMYCIN CONSULT ACTIVE PRN (13:52)
[2019-03-22] MEDS: POTASSIUM CHLORIDE / WTR 10 MEQ/100 ML PLCT IV SCH ×6 (14:27→23:49)
[2019-03-22] MEDS ORDERED: POTASSIUM CHLORIDE / WTR 10 MEQ/100 ML PLCT IV SCH (14:30)
[2019-03-22] MEDS: IMIPENEM/CILASTATIN SODIUM 300 MG in DEXTROSE 5% 100 ML IV SCH ×2 (15:53→22:10)
[2019-03-22] MEDS: METOPROLOL TARTRATE 1 MG/ML VIAL IV SCH ×3 (16:00→23:49)
[2019-03-22] MEDS: INSULIN ASPART 100 UNITS/ML 3 ML PEN SC SCH ×3 (16:28→23:54)
[2019-03-22] MEDS: MULTIVITAMIN TAB PO SCH (20:14)
[2019-03-22] MEDS: ATORVASTATIN 20 MG TAB PO SCH (20:14)
[2019-03-22] MEDS: LEVOTHYROXINE SODIUM 25 MCG TABLET PO SCH (20:14)
[2019-03-22] MEDS: FLUOXETINE HCL 20 MG CAP PO SCH (20:14)
[2019-03-22] MEDS: VANCOMYCIN HCL 1,000 MG in SODIUM CHLORIDE 0.9% 250 ML IV SCH (20:36)
[2019-03-22 20:44] LABS: BUN Creatinine Ratio 34.9 (10-20); Calcium 8.9 mg/dl (8.5-10.1); Creatinine Clr Calc Pharmacy 38.1 ml/min; Est GFR (African American) 61.6; Est GFR (Non-African American) 53.2; Potassium 3.6 mmol/L (3.5-5.1)
--- NOTE | 2019-03-22 21:48 | Infectious Disease Consult ---
Date of Consultation March 22, 2019 Assessment & Plan (1) Traumatic hematoma of abdominal wall with infection: Patient with abdominal wall infection after trauma with hematoma, cultures positive for E. coli, status post drainage and wound VAC placement, now with respiratory failure, more likely from congestive heart failure than pneumonia. Agree however needs to be treated empirically for pneumonia given elevation of procalcitonin pending further culture results. Will follow. (2) Pneumonia: History of Present Illness Reason for Consultation: Abdominal wound, possible pneumonia, starting Primaxin Attending Physician: Suhas Oro MD History of Present Illness 88-year-old female well-known to me from outpatient follow-up, with history of complicated abdominal wall abscess following traumatic hematoma with secondary infection, with cultures growing E. coli. Patient has been on oral antibiotics and tolerating well and has been improving slowly in terms of her abdominal wound. Now presents with sudden onset of increasing shortness of breath, with evidence of congestive heart failure. No evidence of worsening abdominal infection. Patient has been transition to IV antibiotics. No current fever, no increased abdominal pain or other symptoms. Allergies Allergy/AdvReac Type Severity Reaction Status Date / Time oxycodone Allergy Mild RASH Verified 03/18/19 08:45 alendronate sodium [facility]ergy [facility] Verified 03/18/19 08:45 Bactrim Allergy Unknown [facility] LIST Verified 02/07/18 04:16 cefuroxime Allergy Unknown UNKNOWN ON Verified 03/18/19 08:45 LIST Cipro Allergy Unknown Unknown Verified 02/07/18 21:42 ciprofloxacin Allergy Unknown UNKNOWN ON Verified 03/18/19 08:45 LIST codeine Allergy Unknown UNKNOWN ON Verified 03/18/19 08:45 LIST gabapentin Allergy Unknown UNKNOWN ON Verified 03/18/19 08:45 LIST meperidine Allergy Unknown UNKNOWN ON Verified 03/18/19 08:45 LIST propoxyphene Allergy Unknown UNKNOWN ON Verified 03/18/19 08:45 LIST Sulfa (Sulfonamide Allergy Unknown UNKNOWN ON Verified 03/18/19 08:45 Antibiotics) LIST sulfamethoxazole Allergy Unknown [facility] LIST Verified 03/18/19 08:45 trimethoprim Allergy Unknown [facility] LIST Verified 03/18/19 08:45 amphetamine AdvReac Severe UNKNOWN ON Verified 03/18/19 08:45 LIST dextroamphetamine AdvReac Severe UNKNOWN ON Verified 03/18/19 08:45 LIST hydrochlorothiazide AdvReac Intermediate GI DISTRESS Verified 03/18/19 08:45 methyldopa AdvReac Intermediate GI DISTRESS Verified 03/18/19 08:45 Home Medications Home Medications Medication Instructions Recorded Confirmed Type Breo Ellipta 1 inh INHALATION QAM 12/26/18 03/18/19 History albuterol sulfate [Ventolin HFA] 1 - 2 puff INHALATION Q4 PRN 12/26/18 03/18/19 History amlodipine 10 mg PO QAM 12/26/18 03/18/19 History atorvastatin 20 mg PO HS 12/26/18 03/18/19 History calcium carbonate 300 mg PO BID 12/26/18 03/18/19 History cholecalciferol (vitamin D3) 2,000 unit PO QAM 12/26/18 03/18/19 History [Vitamin D3] fluoxetine 10 mg PO QAM 12/26/18 03/18/19 History fluoxetine 20 mg PO QPM 12/26/18 03/18/19 History metoprolol succinate 100 mg PO QAM 12/26/18 03/18/19 History multivitamin 1 tab PO PM 12/26/18 03/18/19 History omega 2-giw-iom-fish oil [Fish Oil] 1 cap PO QAM 12/26/18 03/18/19 History potassium chloride 10 meq PO QAM 12/26/18 03/18/19 History levothyroxine 25 mcg PO HS 02/06/19 03/18/19 History amiodarone 200 mg PO QAM #30 tab 03/02/19 03/18/19 Rx ferrous sulfate 325 mg PO BID #60 tab 03/02/19 03/18/19 Rx magnesium oxide 400 mg PO BID #60 tab 03/02/19 03/18/19 Rx acetaminophen 500 mg capsule 500 mg PO Q4H PRN MDD 6 tablets in 03/05/19 03/18/19 History 24 hours docusate sodium 100 mg capsule 100 mg PO BID 03/05/19 03/18/19 History Lactobacillus acidophilus capsule 100 mg PO QAM 03/16/19 03/18/19 History amoxicillin 875 mg-potassium 1 tab PO BID #60 tab 03/16/19 03/18/19 Rx clavulanate 125 mg tablet omeprazole 20 mg capsule,delayed 20 mg PO QAM #90 cap 03/16/19 03/18/19 History release clopidogrel [Plavix] 75 mg PO QAM 03/18/19 03/18/19 History lisinopril 40 mg tablet 40 mg PO DAILY #90 tab 03/21/19 03/21/19 History omeprazole 20 mg tablet,delayed PO tab 03/21/19 03/21/19 History release triamterene 37.5 1 cap PO DAILY #90 cap 03/21/19 03/21/19 History mg-hydrochlorothiazide 25 mg capsule Patient History Medical History A-fib (Chronic) Abscess of abdominal wall (Chronic) Chronic kidney disease, stage 3a (Chronic) Metabolic encephalopathy (Resolved) Tremor (Chronic) Vertigo (Resolved) Transient ischemic attack (Resolved) Obstructive sleep apnea, adult (Chronic) Hypothyroidism (Chronic) Hyperlipidemia (Chronic) Depression (Chronic) Chronic cerebral ischemia (Resolved) Chronic asthmatic bronchitis (Chronic) CAD (coronary artery disease) (Chronic) Asthma (Chronic) HTN (hypertension) (Chronic) COPD (chronic obstructive pulmonary disease) (Chronic) Surgical History S/P cholecystectomy (Resolved) S/P hernia repair (Resolved) S/P hysterectomy (Resolved) Family History Mother , age 86 of an [place]. She also had COPD. Myocardial infarction COPD (chronic obstructive pulmonary disease) Father , age 47 of an [place]. 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 Other Information That Helps Us Care for You: No other: 4 children, 1 is already Feels Safe at Home: Yes Safety Concerns: Feels Safe At This Time Smoking Status: Never smoker Do You Dip or Chew Tobacco: No ; Hx Alcohol Use: No Hx Substance Use: No Childhood Exposure to Second-Hand Smoke: No Review of Systems Review of Systems: All systems reviewed & are unremarkable except as noted in HPI & below Physical Exam Constitutional: WD/WN, vitals as above comfortable; no acute distress Eyes: PERRL, conjunctivae normal, anicteric sclerae ENMT: external ear and nose normal, oropharynx normal Neck: trachea midline, no thyromegaly neck nontender Respiratory: normal respiratory effort, lungs clear to auscultation normal percussion; does not use accessory muscles Cardiovascular: Rate/Rhythm: regular rate and regular rhythm Heart Sounds: normal S1 and normal S2; no gallop, no murmur and no cardiac rub Vessels: normal peripheral pulses; no JVD Gastrointestinal (Abdomen): normal bowel sounds, soft, nontender, no hepatosplenomegaly Musculoskeletal: no cyanosis or clubbing, extremities motor strength 5/5 Spine: thoracic spine normal to inspection and lumbar spine normal to inspection; no cervical spinal tenderness Skin: no rashes, warm and dry normal turgor and + wound (, Wound looks clean and dry) Neurologic: patellar DTR's 2+ bilat, sensation intact no focal motor deficits Psychiatric: A+Ox3, euthymic affect Orientation: cooperative Lymphatic: no cervical or axillary lymphadenopathy no inguinal lymphadenopathy Results & Data Vital Signs (Past 12 Hours) Vital Signs Temp Pulse Pulse Pulse Resp BP BP 03/22/19 20:00 61 03/22/19 19:46 58 L 21 114/57 L 03/22/19 19:30 57 L 23 117/55 L 03/22/19 19:15 58 L 22 115/58 L 03/22/19 19:13 53 L 20 03/22/19 19:00 36.2 C L 57 L 22 115/57 L 03/22/19 18:49 52 L 116/60 03/22/19 18:00 36.8 C 59 L 24 119/56 L 03/22/19 17:00 36.8 C 57 L 22 127/69 03/22/19 16:00 56 L 122/63 03/22/19 15:35 60 03/22/19 15:22 59 L 59 L 24 03/22/19 15:00 36.7 C 56 L 21 123/60 03/22/19 13:01 56 L 19 115/61 03/22/19 12:00 35.7 C L 56 L 22 121/66 03/22/19 11:49 59 L 24 03/22/19 10:00 61 26 H 119/65 03/22/19 09:45 63 25 H 133/74 Pulse Ox 03/22/19 20:00 03/22/19 19:46 96 03/22/19 19:30 95 03/22/19 19:15 93 03/22/19 19:13 93 03/22/19 19:00 93 03/22/19 18:49 03/22/19 18:00 92 03/22/19 17:00 93 03/22/19 16:00 97 03/22/19 15:35 03/22/19 15:22 93 03/22/19 15:00 94 03/22/19 13:01 94 03/22/19 12:00 91 03/22/19 11:49 91 03/22/19 10:00 89 L 03/22/19 09:45 90 Laboratory Results Short CBC 03/22/19 03/22/19 Range/Units 01:18 04:10 WBC 22.91 H 24.18 H (4.8-10.8) K/uL Hgb 11.5 L 10.6 L (12.0-16.0) g/dL Hct 35.0 L 33.1 L (37-47) % Plt Count 494 H 367 (130-400) K/uL BMP 03/21/19 03/22/19 03/22/19 21:55 01:18 04:10 Sodium 139 140 142 Potassium 3.5 D 4.0 3.3 L D Chloride 100 102 103 Carbon Dioxide 31 29 31 BUN 35 H 34 H 35 H Creatinine 1.19 1.22 H 1.09 Glucose 182 H 225 H 124 H Calcium 9.6 8.8 8.8 03/22/19 03/22/19 12:45 20:02 Sodium 140 142 Potassium 3.3 L 3.6 Chloride 103 104 Carbon Dioxide 32 32 BUN 34 H 34 H Creatinine 1.10 0.96 Glucose 174 H 112 H Calcium 9.3 8.9 Cardiac Enzymes 03/22/19 Range/Units 01:18 Troponin I < 0.015 (0-0.045) ng/ml Liver Function 03/21/19 03/22/19 Range/Units 21:55 01:18 Total Bilirubin 0.4 0.5 (0.2-1) mg/dl AST 14 L 14 L (15-37) U/L ALT 37 37 (12-78) U/L Alkaline Phosphatase 92 92 (45-117) U/L Albumin 2.8 L 3.0 L (3.4-5.0) gm/dl Diagnostic Findings Microbiology 03/18/19 08:24 Blood Aerobic Blood Culture - Preliminary No growth in Aerobic bottle after 48 hours. 03/18/19 08:24 Blood Anaerobic Blood Culture - Preliminary No growth in Anaerobic bottle after 48 hours. 03/18/19 09:38 Blood Aerobic Blood Culture - Preliminary No growth in Aerobic bottle after 48 hours. 03/18/19 09:38 Blood Anaerobic Blood Culture - Preliminary No growth in Anaerobic bottle after 48 hours. 03/18/19 12:00 Urine,Straight Cath Urine Culture - Final No growth - less than 1,000 colonies/mL. XR chest 1V portable HISTORY: Shortness of breath. COMPARISON: 03/20/2019. FINDINGS: No pneumothorax. Small bilateral pleural effusions and bilateral airspace opacities/interstitial thickening persists. The heart remains enlarged. IMPRESSION: No change in the asymmetric pulmonary edema and small bilateral pleural effusions. A superimposed pneumonia cannot be excluded. Electronically signed by: Junior Starr M.D. 03/21/2019 7:59 PM PG Care Time/CCT Total # of Minutes Spent Total Time Spent with Patient: Total time spent is greater than 50% in coordination of care (as documented) at patient's floor/unit and/or counseling patient: (1) Traumatic hematoma of abdominal wall with infection Encounter type: subsequent encounter Qualified Code(s): S30.1XXD - Contusion of abdominal wall, subsequent encounter; L08.9 - Local infection of the skin and subcutaneous tissue, unspecified (2) Pneumonia Laterality: right Lung location: lower lobe of lung Pneumonia type: due to unspecified organism Qualified Code(s): J18.1 - Lobar pneumonia, unspecified organism
[2019-03-23] MEDS: POTASSIUM CHLORIDE / WTR 10 MEQ/100 ML PLCT IV SCH ×8 (00:49→22:39)
[2019-03-23] MEDS: ALBUT/IPRATROP 3MG/0.5MG NEB 3 ML VIAL NEB SCH ×6 (03:11→23:20)
[2019-03-23] MEDS: INSULIN ASPART 100 UNITS/ML 3 ML PEN SC SCH ×5 (04:00→23:04)
[2019-03-23 04:32] LABS: Hematocrit (blood only) 31.5 % (37-47); Hemoglobin 10.1 g/dL (12.0-16.0); Mean Corpuscular Hemoglobin 28.5 pg (25-34); Mean Corpuscular Hgb Conc 32.1 g/dL (32-36); Mean Platelet Volume 8.3 fL (7.4-10.4); Platelet Count 307 K/uL (130-400); RDW Coefficient of Variation 16.9 % (11.5-14.5); RDW Standard Deviation 54.7 fL (36.4-46.3); Red Blood Count 3.54 M/uL (4.2-5.4); White Blood Count 19.51 K/uL (4.8-10.8)
[2019-03-23 04:56] LABS: BUN Creatinine Ratio 33.2 (10-20); Calcium 8.8 mg/dl (8.5-10.1); Creatinine Clr Calc Pharmacy 38.5 ml/min; Est GFR (African American) 62.4; Est GFR (Non-African American) 53.9; Magnesium 2.1 mg/dl (1.8-2.4); Potassium 3.7 mmol/L (3.5-5.1)
[2019-03-23] MEDS: IMIPENEM/CILASTATIN SODIUM 300 MG in DEXTROSE 5% 100 ML IV SCH ×4 (05:00→21:26)
[2019-03-23 05:02] LABS: Phosphorus 2.7 mg/dl (2.5-4.9)
[2019-03-23] MEDS: METOPROLOL TARTRATE 1 MG/ML VIAL IV SCH ×4 (05:33→23:01)
[2019-03-23 06:11] LABS: Estimated Average Glucose 114 mg/dl; Hemoglobin A1C 5.6 % (4.5-5.6)
--- NOTE | 2019-03-23 07:17 | XRay Report ---
XR chest 1V portable HISTORY: 88 years-old Female f/u follow-up study in a patient with acute shortness of breath and zandra ateral lung opacities COMPARISON: Chest radiograph 03/21/2019 TECHNIQUE: Portable AP view of the chest FINDINGS: Cardiac silhouette is enlarged, unchanged. Calcified plaque of the thoracic aortic arch. Trace pleura l effusions. Progressive bilateral mixed interstitial and alveolar opacities, right greater than left with relative sparing of the left lung apex. Degenerative changes of the shoulders and spine. IMPRESSION: 1. Cardiomegaly with progressively worsened bilateral mixed interstitial and alveolar opacities sugge stive of multifocal pneumonia versus asymmetric pulmonary edema. 2. Small pleural effusions. The above report was generated using voice recognition software. It may contain grammatical, syntax o r spelling errors. Electronically signed by: Shay Yousif M.D. 03/23/2019 7:15 AM
[2019-03-23] MEDS: BUDESONIDE 0.5 MG/2 ML VIAL (PULMICORT) NEB SCH ×2 (07:45→19:36)
--- NOTE | 2019-03-23 07:56 | Critical Care Progress Note ---
Date of Service March 23, 2019 Assessment & Plan (1) Acute on chronic diastolic CHF (congestive heart failure): Reason Critically Ill: 88-year-old female with recent hospitalization for abdominal wound presents with ongoing and worsening hypoxic respiratory failure. Neuro - [facility] ICU: Negative Cardiac - Diastolic CHFlast echo showed EF 50 to 55% with septal wall motion abnormality -Likely source of dyspnea considering patient began to display symptoms after thiazide diuretic discontinued for ROXANNA -We will continue with aggressive diuresis, see respiratory failure below CADrecent cath showed stable cardiac disease -Continue Lipitor and Plavix PAFpatient was being treated with oral amnio and MTP, went into A. fib RVR Tuesday night and was converted to IV amnio -IV amnio discontinued at this time, controlled with IV metoprolol push -Continue monitoring on telemetry HTNcontrolling with nicardipine drip, MTP push Respiratory - Hypoxic respiratory failurechest x-ray showed significant pulmonary edema versus bilateral infiltrates with small bilateral pleural effusions -Patient initially treated with BiPAP however ABG was consistent with strictly hypoxic respiratory failure, and patient was switched to CPAP settings which she has tolerated well -COPD etiology less likely per imaging and gas; discontinuing IV steroids at this time -amio toxicity less likely as patient has only been on amiodarone since 02/27 -Procalcitonin initially negative but is trended to 1.6, unable to rule out infectious process at this time. Will treat empirically with antibiotics -Cannot rule out possible reaction from blood product as patient received 2 units RBCs Tuesday, however plan would not change from supportive therapy -Most likely related to volume overload/pulmonary edema secondary to CHF exacerbation, will proceed with aggressive diuresis with IV Lasix. Will administer Diuril prior to next dose Lasix. -Continuing budesonide, duo nebs -Continuous monitoring with pulse ox and wean oxygen support as indicated with saturation goal 92%, currently CPAP on FiO2 50% PEEP 12 GI - Abdominal woundabdominal wound appears to be well-healing with negative pressure dressing and antibiotic therapy last cultures grew E. coli, was treated with Augmentin outpatient now co nverted to Zosyn inpatient; antibiotics switched to Vanco and Primaxin considering possible development of pulmonary source of infection while on Zosyn - ID and wound care following GERDPepcid RENAL/LYTES - AKIdeveloped on previous admission and has improved -Creatinine stable at this time and will continue diuresis with Lasix -Continue to monitor with routine BMPs HypokalemiaIV diuretics likely contributing, continue scheduled potassium infusions -We will drawl regular BMPs and attempt to maintain potassium goal greater than 4.0 - Indwelling Marie catheter, strict I's and O's ENDO - Hyperglycemialikely secondary to IV steroids and stress, was placed on insulin drip previous night which was converted to sliding scale this a.m. However, patient remained hyperglycemic last night and had to be placed back on insulin drip -IV steroids discontinued yesterday HEME - Anemiawas found to be anemic on admission with hemoglobin less than 8, was transfused with 2 units RBCs considering respiratory failure -H&H has been stable since, will continue to trend -We will continue ferrous sulfate ID - Blood cultures negative to date ID consulted, will follow up recs MRSA PCR negative, leaving vancomycin for now considering patient may have developed pulmonary source while in the hospital Procalcitonin negative on admission, now trending up to 1.6 Zosyn switched to Primaxin as patient may have developed pulmonary source while on Zosyn LINES/IV ACCESS - Peripheral IVs, Marie DVT PROPHYLAXIS - SCDs, heparin I have personally spent 40 minutes of critical care time in the direct management of this patient. This is a life/limb threatening event. This includes time spent evaluating patient, direct bedside care, chart review, placing orders, interpretation of diagnostic studies, discussion with consultants, patient, and family members, as well as other required patient management activities. This time is exclusive of all separately billable procedures, and teaching time and separate from and in addition to any other critical care service time. Thank you for allowing us to participate in the care of this patient. Please refer to my attending physician's documentation for any further recommendations. (2) PAF (paroxysmal atrial fibrillation): (3) DVT prophylaxis: (4) Acute respiratory failure with hypoxia: (5) Traumatic hematoma of abdominal wall with infection: (6) Admitted to intensive care unit: (7) GERD (gastroesophageal reflux disease): (8) CAD (coronary artery disease): Supervising Physician Co-Signing Physician Notes Seen and examined. EMR, laboratory studies, and radiographic studies were independently reviewed. Extensive discussions with family. Discussed with cardiology. Patient has been stable to slightly improved overnight with some decrease in her oxygen requirement. Continue to work on weaning BiPAP. Infectious disease consult reviewed and appreciated. I suspect her pulmonary infiltrates and hypoxemia are likely multifactorial due to combinations of potential aspiration, pneumonia/healthcare associated, and fluid. Cannot rule out other potential etiologies including cryptogenic organizing pneumonia. Olding steroids for now and continue antibiotics. The patient states that she is quite comfortable on CPAP and given her clinical improvement I think it is reasonable to proceed without intubation. She understands that if she were to deteriorate clinically, intubation would be warranted. The family also understands that we are proc eeding with some diagnostic uncertainty as we have not been able to obtain specimens from the lower respiratory tract and some of our therapies at this point time are empiric. Nutrition remains problematic as we cannot feed the patient due to her current respiratory status. I am reluctant to pursue peripheral nutrition given her potential for complications. If we are unable to wean from noninvasive positive pressure ventilation over the next 24 hours, will need to readdress. CODE STATUS was readdressed and the patient remains a full code at this point time. Subjective 88-year-old female with recent hospitalization complicated with abdominal wounds. Was discharged from hospital to rehab center and discharged home on 03/15. However patient began to develop dyspnea and was brought into the emergency room where she was found to have hypoxic respiratory failure and was placed on BiPAP. Transferred to ICU yesterday for worsening of symptoms. Now being treated with CPAP and aggressive diuresis. As of this morning we have been able to wean CPAP settings to FiO2 50% with PEEP of 12. BNP trending down however still elevated significantly. We will continue with current therapy and remain in ICU at this time as patient has a low reserve and low threshold for requiring intubation. This morning patient is still short of breath however says it is improved from previous day. She denies any pain, headache, dizziness, palpitations, chest pain, abdominal pain. Review of Systems Review of Systems: All systems reviewed & are unremarkable except as noted in HPI & below Physical Exam Eyes: PERRL, conjunctivae normal, anicteric sclerae ENMT: external ear and nose normal, oropharynx normal Neck: trachea midline, no thyromegaly Cardiovascular: RRR, no murmur, no edema Rate/Rhythm: regular rate and regular rhythm Heart Sounds: normal S1 and normal S2 Gastrointestinal (Abdomen): normal bowel sounds, soft, nontender, no hepatosplenomegaly Skin: no rashes, warm and dry Neurologic: moves all extremities Cranial Nerves: PERRL Psychiatric: A+Ox3, euthymic affect Results & Data Vital Signs (Past 12 Hours) Vital Signs Temp Pulse Pulse Resp BP Pulse Ox 03/23/19 07:52 70 70 30 H 89 L 03/23/19 05:30 61 21 121/56 L 96 03/23/19 05:00 36.4 C L 65 25 H 114/80 98 03/23/19 04:30 66 25 H 130/58 L 94 03/23/19 04:00 68 25 H 124/59 L 95 03/23/19 03:30 64 23 118/58 L 98 03/23/19 03:24 60 22 97 03/23/19 03:03 61 24 123/54 L 96 03/23/19 03:00 61 24 95 03/23/19 02:30 65 24 126/72 96 03/23/19 02:08 22 95 03/23/19 02:00 60 22 108/56 L 95 03/23/19 01:30 60 24 115/55 L 94 03/23/19 01:00 62 25 H 111/58 L 95 03/23/19 00:30 65 25 H 116/56 L 96 03/23/19 00:00 61 22 116/51 L 94 03/22/19 23:49 58 L 03/22/19 23:30 37 C 62 24 118/60 95 03/22/19 23:29 58 L 24 95 03/22/19 23:27 58 L 24 95 03/22/19 23:00 57 L 20 112/57 L 92 03/22/19 22:30 56 L 20 115/57 L 91 03/22/19 22:00 57 L 21 123/58 L 92 03/22/19 21:30 57 L 22 120/60 90 03/22/19 21:00 58 L 24 115/61 93 03/22/19 20:30 56 L 21 119/59 L 94 03/22/19 20:15 56 L 21 118/58 L 95 03/22/19 20:00 58 L 22 119/58 L 93 PG Care Time/CCT Total # of Minutes Spent Total Time Spent with Patient: Total time spent is greater than 50% in coordination of care (as documented) at patient's floor/unit and/or counseling patient: Critical Care Time: Yes Total Critical Care Time: 40 (1) Traumatic hematoma of abdominal wall with infection Encounter type: subsequent encounter Qualified Code(s): S30.1XXD - Contusion of abdominal wall, subsequent encounter; L08.9 - Local infection of the skin and subcutaneous tissue, unspecified (2) CAD (coronary artery disease) Associated angina: without angina Coronary Disease-Associated Artery/Lesion type: [place] artery [place] vs. transplanted heart: [place] heart Qualified Code(s): I25.10 - Atherosclerotic heart disease of [place] coronary artery without angina pectoris (3) GERD (gastroesophageal reflux disease) Esophagitis presence: esophagitis presence not specified Qualified Code(s): K21.9 - Gastro-esophageal reflux disease without esophagitis
[2019-03-23] MEDS: FUROSEMIDE 40 MG in SYRINGE 0 ML IV SCH ×3 (07:57→23:00)
[2019-03-23] MEDS: FERROUS SULFATE 325 MG TAB PO SCH ×2 (08:36→17:28)
[2019-03-23] MEDS: FAMOTIDINE 20 MG in SYRINGE 3 ML IV SCH (09:01)
[2019-03-23] MEDS: HEPARIN SOD 5,000 UNIT/0.5 ML VIAL SQ SCH ×2 (09:02→21:25)
[2019-03-23] MEDS: NYSTATIN POWDER 15GM BTL EXT SCH ×3 (09:04→21:25)
[2019-03-23] MEDS: SACCHAROMYCES BOULARDII 250 MG CAP PO SCH (10:18)
[2019-03-23] MEDS: DOCUSATE SODIUM 100 MG CAP PO SCH ×2 (10:18→20:37)
[2019-03-23] MEDS: CLOPIDOGREL BISULFATE 75 MG TAB PO SCH (10:18)
[2019-03-23] MEDS: CALCIUM CARBONATE 1250MG TAB PO SCH ×2 (10:18→20:38)
[2019-03-23] MEDS: FLUOXETINE HCL 10 MG CAP PO SCH (10:18)
[2019-03-23] MEDS: CHOLECALCIFEROL 1,000 UNITS TAB PO SCH (10:18)
[2019-03-23] MEDS: FLUTICASONE/VILANTEROL INHALER INH SCH (10:18)
[2019-03-23] MEDS: POTASSIUM CHLORIDE 10 MEQ TABCR PO SCH (10:18)
[2019-03-23] MEDS: MAGNESIUM OXIDE 400 MG TAB PO SCH ×2 (10:18→20:38)
--- NOTE | 2019-03-23 12:36 | Cardiology Progress Note ---
Date of Service March 23, 2019 Assessment & Plan (1) Acute respiratory failure with hypoxia: Etiology is multifactorial likely includes a degree of volume overload and a possible infectious causes. Management per the ICU team. (2) Acute on chronic diastolic CHF (congestive heart failure): The patient continues on intravenous furosemide 40 mg every 8 hrs. (3) PAF (paroxysmal atrial fibrillation): Fortunately, she remains in sinus rhythm after course of intravenous amiodarone. Would resume oral dosing 200 mg b.i.d. when she is taking p.o. medications. (4) CAD (coronary artery disease): Nonobstructive coronary artery disease identified on cardiac catheterization in May 2009. (5) HTN (hypertension): Adequate control on current medical regimen. Subjective The patient is resting comfortably in bed, however, on a BiPAP mask. Six family members are at the bedside including her daughter and son. Physical Exam Physical Exam: In general is well-developed well-nourished white female no acute distress. HEENT exam notes a BiPAP mask in place. Neck is supple with full carotid upstrokes. There are no carotid bruits. No jugular venous distention. There is no thyromegaly. Cardiovascular exam reveals a regular rhythm with distant heart sounds. No obvious murmurs. Lungs are clear without rales, rhonchi or wheezes. Abdomen notes a wound VAC in place. Extremities reveal intact radial artery pulses bilaterally. Trace pretibial edema. Results & Data Vital Signs (Past 12 Hours) Vital Signs Temp Pulse Pulse Resp BP Pulse Ox 03/23/19 11:53 75 118/54 L 03/23/19 11:16 70 27 H 91 03/23/19 11:15 70 27 H 91 03/23/19 07:52 70 70 30 H 89 L 03/23/19 05:30 61 21 121/56 L 96 03/23/19 05:00 36.4 C L 65 25 H 114/80 98 03/23/19 04:30 66 25 H 130/58 L 94 03/23/19 04:00 68 25 H 124/59 L 95 03/23/19 03:30 64 23 118/58 L 98 03/23/19 03:24 60 22 97 03/23/19 03:03 61 24 123/54 L 96 03/23/19 03:00 61 24 95 03/23/19 02:30 65 24 126/72 96 03/23/19 02:08 22 95 03/23/19 02:00 60 22 108/56 L 95 03/23/19 01:30 60 24 115/55 L 94 03/23/19 01:00 62 25 H 111/58 L 95 Laboratory Results Laboratory Results - last 24 hr 03/22/19 03/22/19 03/22/19 12:45 16:26 19:57 WBC RBC Hgb Hct MCV MCH MCHC RDW Std Deviation RDW Coeff of Elliot Plt Count MPV Sodium 140 Potassium 3.3 L Chloride 103 Carbon Dioxide 32 Anion Gap 5.0 BUN 34 H Creatinine 1.10 Est Cr Clr Drug Dosing 33.3 Est GFR ( Amer) 52.3 Est GFR (Non-Af Amer) 45.1 BUN/Creatinine Ratio 31.2 H Glucose 174 H POC Glucose 139 H 123 H Estimat Average Glucose Hemoglobin A1c Calcium 9.3 Phosphorus Magnesium 2.2 NT-Pro-B Natriuret Pep Procalcitonin 03/22/19 03/22/19 03/23/19 20:02 23:53 04:01 WBC 19.51 H RBC 3.54 L Hgb 10.1 L Hct 31.5 L MCV 89.0 MCH 28.5 MCHC 32.1 RDW Std Deviation 54.7 H RDW Coeff of Elliot 16.9 H Plt Count 307 MPV 8.3 Sodium 142 Potassium 3.6 Chloride 104 Carbon Dioxide 32 Anion Gap 5.0 BUN 34 H Creatinine 0.96 Est Cr Clr Drug Dosing 38.1 Est GFR ( Amer) 61.6 Est GFR (Non-Af Amer) 53.2 BUN/Creatinine Ratio 34.9 H Glucose 112 H POC Glucose 117 H Estimat Average Glucose Hemoglobin A1c Calcium 8.9 Phosphorus Magnesium NT-Pro-B Natriuret Pep Procalcitonin 03/23/19 03/23/19 03/23/19 04:01 04:01 04:01 WBC RBC Hgb Hct MCV MCH MCHC RDW Std Deviation RDW Coeff of Elliot Plt Count MPV Sodium 141 Potassium 3.7 Chloride 104 Carbon Dioxide 31 Anion Gap 6.0 BUN 31 H Creatinine 0.95 Est Cr Clr Drug Dosing 38.5 Est GFR ( Amer) 62.4 Est GFR (Non-Af Amer) 53.9 BUN/Creatinine Ratio 33.2 H Glucose 106 H POC Glucose Estimat Average Glucose 114 Hemoglobin A1c 5.6 Calcium 8.8 Phosphorus 2.7 Magnesium 2.1 NT-Pro-B Natriuret Pep 49856 H Procalcitonin 1.90 H 03/23/19 03/23/19 04:04 08:01 WBC RBC Hgb Hct MCV MCH MCHC RDW Std Deviation RDW Coeff of Elliot Plt Count MPV Sodium Potassium Chloride Carbon Dioxide Anion Gap BUN Creatinine Est Cr Clr Drug Dosing Est GFR ( Amer) Est GFR (Non-Af Amer) BUN/Creatinine Ratio Glucose POC Glucose 104 H 114 H Estimat Average Glucose Hemoglobin A1c Calcium Phosphorus Magnesium NT-Pro-B Natriuret Pep Procalcitonin Diagnostic Findings 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 PG Care Time/CCT Total # of Minutes Spent Total Time Spent with Patient: Total time spent is greater than 50% in coordination of care (as documented) at patient's floor/unit and/or counseling patient: 45 (1) CAD (coronary artery disease) Coronary Disease-Associated Artery/Lesion type: apache artery [place] vs. transplanted heart: apache heart Associated angina: without angina Qualified Code(s): I25.10 - Atherosclerotic heart disease of apache coronary artery without angina pectoris (2) HTN (hypertension) Hypertension type: essential hypertension Qualified Code(s): I10 - Essential (primary) hypertension
[2019-03-23 14:19] LABS: BUN Creatinine Ratio 30.6 (10-20); Creatinine Clr Calc Pharmacy 37.3 ml/min; Est GFR (African American) 60.1; Est GFR (Non-African American) 51.9; Potassium 3.8 mmol/L (3.5-5.1)
--- NOTE | 2019-03-23 15:15 | Palliative Care Consultation ---
Date of Consultation March 23, 2019 Assessment & Plan (1) Goals of care, counseling/discussion: Chart reviewed, patient seen and examined-patient's daughter Gaby and son-in-law Doroteo at bedside. Patient is an 88-year-old female with a past medical history significant for newly diagnosed paroxysmal A. 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 After this hospitalization patient spent 2 weeks at [facility] and was recently discharged on 03/15. Patient had done well in rehab. Patient had a choking episode on 03/16 and continue to have worsening shortness of breath over the next couple days. On 03/18 patient was having severe shortness of breath and was brought to the emergency room. In the emergency room chest x-ray showed cardiomegaly with edema, white count was 16.69 with a hemoglobin of 8.8. Patient was admitted and diuresed-her hemoglobin dropped to 7.5 and she was transfused. Hemoglobin has been stable at 10.1. Patient has required aggressive diuresis-she continued to have shortness of breath and required BiPAP and is currently in the ICU. Patient had an episode of A. fib despite being on amiodarone-she was now switched to Cardizem along with metoprolol. Patient's heart rate has varied between 53 and 135 since admission-the last 24 hours her heart rate has been 6070. Patient also with fluctuating blood pressure her blood pressures systolically is range between 108 and 199 with diastolics ranging from 58-125. Patient's BiPAP settings have been able to be weaned-her FiO2 is now at 50%. Patient awake alert and oriented-able to participate in conversation by nodding yes and no and writing to communicate. Patient named her daughter, Gaby as medical decision-maker. Patient lives with her who is in fairly good health-has slight memory issues. Patient wishes to put off need for intubation for as long as possible-stated on several occasions that she would want to be intubated if necessary. She would not want prolonged intubation or be maintained on life support for an indefinite period of time. Patient's daughter is aware of patient's wishes-has had discussions in the past regarding her living will. Patient had 4 children-the eldest approximately 20 years ago. Her daughter Gaby, is the oldest of the 3 siblings. Patient has another daughter and son- all 3 children live in the [place] area. Patient was never a smoker, however was exposed to secondhand smoke from age [age]. Patient did have asthma as a child. Collaborated with attending team regarding patient's wishes and goals of care. -CODE STATUS-patient wishes to remain a full code, would want to avoid intubation for as long as possible as she does not wish to be sedated and not be able to communicate -Paroxysmal A. fib-this is a relatively new diagnosis-patient was on amiodarone and metoprolol and had an episode of A. fib while on amiodarone-patient is now on Cardizem and metoprolol. Patient is on Plavix for AC -Diastolic CHF-patient is being aggressively diuresed, patient's renal function is remaining steady and tolerating diuresis with Lasix every 8 hours. Respiratory status improving with aggressive diuresis -Acute respiratory failure with hypoxia-underlying COPD as well as diastolic heart failure and possible pneumonia contributing-patient slowly improving, continue BiPAP and weaning O2 as tolerated -COPD-continue respiratory support, diuresis, as well as budesonide and albuterol. Patient on Primaxin and Vanco for possible pneumonia -Abdominal wall abscess-wound VAC in place, wound healing well. -Depression-has been doing well on current dose of Prozac -Hypothyroid-on Synthroid Will continue to follow and assist patient and family with medical decision making as needed. (2) PAF (paroxysmal atrial fibrillation): (3) Acute on chronic diastolic CHF (congestive heart failure): (4) Acute respiratory failure with hypoxia: (5) COPD (chronic obstructive pulmonary disease): COPD type: COPD with acute exacerbation Qualified Code(s): J44.1 - Chronic obstructive pulmonary disease with (acute) exacerbation (6) Abscess of abdominal wall: History of Present Illness Reason for Consultation: Address CODE STATUS and goals of care Requesting Physician: SHALOM Sauceda Attending Physician: Suhas Oro MD History of Present Illness Chart reviewed, patient seen and examined-patient's daughter Gaby and son-in-law Doroteo at bedside. Patient is an 88-year-old female with a past medical history significant for newly diagnosed paroxysmal A. 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 After this hosp italization patient spent 2 weeks at [facility] and was recently discharged on 03/15. Patient had done well in rehab. Patient had a choking episode on 03/16 and continue to have worsening shortness of breath over the next couple days. On 03/18 patient was having severe shortness of breath and was brought to the emergency room. In the emergency room chest x-ray showed cardiomegaly with edema, white count was 16.69 with a hemoglobin of 8.8. Patient was admitted and diuresed-her hemoglobin dropped to 7.5 and she was transfused. Hemoglobin has been stable at 10.1. Patient has required aggre ssive diuresis-she continued to have shortness of breath and required BiPAP and is currently in the ICU. Patient had an episode of A. fib despite being on amiodarone-she was now switched to Cardizem along with metoprolol. Patient's heart rate has varied between 53 and 135 since admission-the last 24 hours her heart rate has been 6070. Patient also with fluctuating blood pressure her blood pressures systolically is range between 108 and 199 with diastolics ranging from 58-125. Patient's BiPAP settings have been able to be weaned-her FiO2 is now at 50%. Patient awake alert and oriented-able to participate in conversation by nodding yes and no and writing to communicate. Patient named her daughter, Gaby as medical decision-maker. Patient lives with her who is in fairly good health-has slight memory issues. Patient wishes to put off need for intubation for as long as possible-stated on several occasions that she would want to be intubated if necessary. She would not want prolonged intubation or be maintained on life support for an indefinite period of time. Patient's daughter is aware of patient's wishes-has had discussions in the past regarding her living will. Patient had 4 children-the eldest approximately 20 years ago. Her daughter Gaby, is the oldest of the 3 siblings. Patient has another daughter and son- all 3 children live in the [place] area. Patient was never a smoker, however was exposed to secondhand smoke from age [age]. Patient did have asthma as a child. Collaborated with attending team regarding patient's wishes and goals of care. Allergies Allergy/AdvReac Type Severity Reaction Status Date / Time oxycodone Allergy Mild RASH Verified 03/18/19 08:45 alendronate sodium Allergy Unknown [facility] LIST Verified 03/18/19 08:45 Bactrim Allergy Unknown [facility] LIST Verified 02/07/18 04:16 cefuroxime Allergy Unknown UNKNOWN ON Verified 03/18/19 08:45 LIST Cipro Allergy Unknown Unknown Verified 02/07/18 21:42 ciprofloxacin Allergy Unknown UNKNOWN ON Verified 03/18/19 08:45 LIST codeine Allergy Unknown UNKNOWN ON Verified 03/18/19 08:45 LIST gabapentin Allergy Unknown UNKNOWN ON Verified 03/18/19 08:45 LIST meperidine Allergy Unknown UNKNOWN ON Verified 03/18/19 08:45 LIST propoxyphene Allergy Unknown UNKNOWN ON Verified 03/18/19 08:45 LIST Sulfa (Sulfonamide Allergy Unknown UNKNOWN ON Verified 03/18/19 08:45 Antibiotics) LIST sulfamethoxazole Allergy Unknown [facility] LIST Verified 03/18/19 08:45 trimethoprim Allergy Unknown [facility] LIST Verified 03/18/19 08:45 amphetamine AdvReac Severe UNKNOWN ON Verified 03/18/19 08:45 LIST dextroamphetamine AdvReac Severe UNKNOWN ON Verified 03/18/19 08:45 LIST hydrochlorothiazide AdvReac Intermediate GI DISTRESS Verified 03/18/19 08:45 methyldopa AdvReac Intermediate GI DISTRESS Verified 03/18/19 08:45 Home Medications Home Medications Medication Instructions Recorded Confirmed Type Breo Ellipta 1 inh INHALATION QAM 12/26/18 03/18/19 History albuterol sulfate [Ventolin HFA] 1 - 2 puff INHALATION Q4 PRN 12/26/18 03/18/19 History amlodipine 10 mg PO QAM 12/26/18 03/18/19 History atorvastatin 20 mg PO HS 12/26/18 03/18/19 History calcium carbonate 300 mg PO BID 12/26/18 03/18/19 History cholecalciferol (vitamin D3) 2,000 unit PO QAM 12/26/18 03/18/19 History [Vitamin D3] fluoxetine 10 mg PO QAM 12/26/18 03/18/19 History fluoxetine 20 mg PO QPM 12/26/18 03/18/19 History metoprolol succinate 100 mg PO QAM 12/26/18 03/18/19 History multivitamin 1 tab PO PM 12/26/18 03/18/19 History omega 8-tyi-iot-fish oil [Fish Oil] 1 cap PO QAM 12/26/18 03/18/19 History potassium chloride 10 meq PO QAM 12/26/18 03/18/19 History levothyroxine 25 mcg PO HS 02/06/19 03/18/19 History amiodarone 200 mg PO QAM #30 tab 03/02/19 03/18/19 Rx ferrous sulfate 325 mg PO BID #60 tab 03/02/19 03/18/19 Rx magnesium oxide 400 mg PO BID #60 tab 03/02/19 03/18/19 Rx acetaminophen 500 mg capsule 500 mg PO Q4H PRN MDD 6 tablets in 03/05/19 03/18/19 History 24 hours docusate sodium 100 mg capsule 100 mg PO BID 03/05/19 03/18/19 History Lactobacillus acidophilus capsule 100 mg PO QAM 03/16/19 03/18/19 History amoxicillin 875 mg-potassium 1 tab PO BID #60 tab 03/16/19 03/18/19 Rx clavulanate 125 mg tablet omeprazole 20 mg capsule,delayed 20 mg PO QAM #90 cap 03/16/19 03/18/19 History release clopidogrel [Plavix] 75 mg PO QAM 03/18/19 03/18/19 History lisinopril 40 mg tablet 40 mg PO DAILY #90 tab 03/21/19 03/21/19 History omeprazole 20 mg tablet,delayed PO tab 03/21/19 03/21/19 History release triamterene 37.5 1 cap PO DAILY #90 cap 03/21/19 03/21/19 History mg-hydrochlorothiazide 25 mg capsule Patient History Medical History A-fib (Chronic) Abscess of abdominal wall (Chronic) Chronic kidney disease, stage 3a (Chronic) Metabolic encephalopathy (Resolved) Tremor (Chronic) Vertigo (Resolved) Transient ischemic attack (Resolved) Obstructive sleep apnea, adult (Chronic) Hypothyroidism (Chronic) Hyperlipidemia (Chronic) Depression (Chronic) Chronic cerebral ischemia (Resolved) Chronic asthmatic bronchitis (Chronic) CAD (coronary artery disease) (Chronic) Asthma (Chronic) HTN (hypertension) (Chronic) COPD (chronic obstructive pulmonary disease) (Chronic) Surgical History S/P cholecystectomy (Resolved) S/P hernia repair (Resolved) S/P hysterectomy (Resolved) Family History Mother , age 86 of an AR. She also had COPD. Myocardial infarction COPD (chronic obstructive pulmonary disease) Father , age 47 of an AR. 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 Other Information That Helps Us Care for You: No other: 4 children, 1 is already Feels Safe at Home: Yes Safety Concerns: Feels Safe At This Time Smoking Status: Never smoker Do You Dip or Chew Tobacco: No ; Hx Alcohol Use: No Hx Substance Use: No Childhood Exposure to Second-Hand Smoke: No Review of Systems Review of Systems: Unable to complete a full ROS-patient on BiPAP with limited communication. Patient did indicate that she feels that her breathing is improving, denies fever or chills, denies abdominal pain Physical Exam Physical Exam: PE: Patient in the ICU on BiPAP, resting comfortably HEENT: EOMI, hearing within normal limits Respirations: On BiPAP diminished breath sounds all ju[place] CV: Rate controlled, no edema Abdomen: Soft, nontender, wound VAC in place Neuro: Alert and oriented x4 Psych: Appropriate mood, no increased anxiety Results & Data Vital Signs (Past 12 Hours) Vital Signs Temp Pulse Pulse Resp BP Pulse Ox 03/23/19 14:00 71 31 H 130/66 91 08/09/19 13:00 71 25 H 129/63 91 03/23/19 12:30 72 33 H 125/57 L 91 03/23/19 12:15 74 29 H 119/60 92 03/23/19 12:00 97.7 F 67 25 H 123/53 L 92 03/23/19 11:53 75 118/54 L 03/23/19 11:16 70 27 H 91 03/23/19 11:15 70 27 H 91 03/23/19 11:00 71 28 H 120/71 92 03/23/19 10:00 70 25 H 108/58 L 94 03/23/19 09:00 74 27 H 105/65 93 03/23/19 08:00 97.5 F L 74 26 H 117/71 91 03/23/19 07:52 70 70 30 H 89 L 03/23/19 07:00 66 26 H 133/57 L 97 03/23/19 05:30 61 21 121/56 L 96 03/23/19 05:00 97.5 F L 65 25 H 114/80 98 03/23/19 04:30 66 25 H 130/58 L 94 03/23/19 04:00 68 25 H 124/59 L 95 03/23/19 03:30 64 23 118/58 L 98 03/23/19 03:24 60 22 97 03/23/19 03:03 61 24 123/54 L 96 03/23/19 03:00 61 24 95 PG Care Time/CCT Total # of Minutes Spent Total Time Spent with Patient: Total time spent is greater than 50% in coordination of care (as documented) at patient's floor/unit and/or counseling patient: Time Spent Attending Total time spent 70 minutes with greater than 50% of the time spent at bedside with patient and family discussing goals of care as well as CODE STATUS
--- NOTE | 2019-03-23 15:28 | Hospitalist Progress Note ---
Date of Service March 23, 2019 Assessment & Plan (1) Acute on chronic diastolic CHF (congestive heart failure): (1) Acute respiratory failure with hypoxia: Chest x-ray worsened since admission - patient required transfer to ICU 03/22 for hypoxic respiratory failure and chest pain. Placed on bipap and nitro gtt. Nitro gtt now discontinued and changed to nicardipine drip Acute on chronic diastolic heart failure associated with cessation of diuretic therapy as an outpatient and A.fib Continue to doubt pulmonary toxicity from amiodarone - this was initiated on 02/27/19 - Asthma/COPD exacerbation could also be contributing IV zosyn changed to Premaxin and Vanco - procalcitonin 1.9 today Aggressive diuresis with furosemide - ICU will administer Diuril this afternoon Loin Puller consulted (2) CHF (congestive heart failure): Echo 02/12/19 with preserved EF - acute on chronic diastolic heart failure Possible etiologies for her decompensated diastolic CHF -- uncontrolled a.fib, lack of diuretic (was on HCTZ when she left [facility]; it was apparently d/c while at rehab), dietary issues, etc. No evidence of ischemia. Symptoms gradually worsened over 1-2 weeks. Hydrochlorothiazide was stopped at discharge from [facility] Patient converted to SR from Afib RVR 03/21 while on amiodarone gtt and beta- blockers per cardiology Continue aggressive diuresis as above Cardiology consulted (3) A-fib: During her previous prolonged hospitalization she had 2 episodes of PAF with one lasting over 24 hours. She may be having runs of PAF outside the hospital which could predispose her diastolic heart failure. She does not have symptoms from such. Changed oral amiodarone to amiodarone drip per cardiology recommendation 03/21, continue PRN metoprolol augmenting her oral metoprolol dosing - cardiology making final decisions regarding her rate control. Converted to SR 03/21 During prior hospital stay she was significantly anemic due to bleeding from her intra-abdominal hematoma; thus anticoagulation was deferred. Will continue to defer on such. I doubt pulmonary toxicity from amiodarone; theoretically possible but unlikely given that it would be very early after it was initiated (<2 weeks). (4) Pneumonia: Procalcitonin now increased to 1.9 Zosyn changed to Premaxin and Vanco BC negative ID onboard (5) CAD (coronary artery disease): Troponin is negative; she has no symptoms even with rapid ventricular rate Nonobstructive coronary artery disease identified on a cardiac catheterization in May 2009. (6) Asthma: IV steroids now dc'd, continue scheduled nebs BIPAP (7) Chronic kidney disease, stage 3a: Cr stable will follow with increased diuresis (8) HTN (hypertension): Nicardipine gtt (9) Hyperlipidemia: continue atorvastatin (10) Hypothyroidism: TSH mildly elevated. Takes synthroid 25mcg daily. (11) Obstructive sleep apnea, adult: CPAP unit from home for as needed and night-time use when no longer requiring bipap (12) Traumatic hematoma of abdominal wall with infection: Had spontaneous rupture of large intra-abdominal hematoma in February during her prolonged stay. The hematoma was due to a prior fall. Following rupture Dr Pablo performed I/D in the OR. Cultures showed e.coli. She has been on augmentin since and was meant to continue with prolonged course The abdominal wound is getting smaller with use of Wound Vac. It is changed M/W/F. Wound care clinic follows this. Will consult the wound care nurse. ID consulted (13) Anemia: Has received 2 units of blood cells this admission Previous work-up showed the anemia was likely due to bleeding from the intra- abdominal hematoma and also anemia of chronic disease. Continue ferrous sulfate. Patient did not have any melena or obvious blood loss source of her hemoglobin - hgb has been stable for multiple days (14) Transient ischemic attack: Had TIA during prior admission. Also with h/o CVA many years ago. On Plavix for secondary prevention. Ideally should be on anticoagulation because of PAF but this has been deferred -- see discussion above. (15) DVT prophylaxis: dvt prophylaxis heparin bid, SCDs Palliative care consulted for goals of care - patient agrees to intubation if absolutely necessary, would not want prolonged mechanical ventilation, would like her daughter to make medical decisions for her if she is unable. (2) Acute respiratory failure with hypoxia: Subjective Ms. Parra appears comfortable. Has no complaints. Review of Systems Review of Systems: All systems reviewed & are unremarkable except as noted in HPI & below Physical Exam Physical Exam: General: no distress Eyes: normal inspection, PERLL Respiratory: chest non tender, coarse bilaterally to auscultation, no respiratory distress, no accessory muscle use Cardiac: regular rate and rhythm, no rub or gallop, no murmur, no edema, no jvd GI/: active bowel sounds, no abd pain or tenderness, soft, non distended Extremities: normal range of motion, normal strength, non tender Neuro/Psych: alert and oriented x 3, normal mood and affect Skin: normal color, dry Results & Data Vital Signs (Past 12 Hours) Vital Signs Temp Pulse Pulse Resp BP Pulse Ox 03/23/19 15:10 71 22 94 03/23/19 14:59 71 21 93 03/23/19 14:00 71 31 H 130/66 91 03/23/19 13:00 71 25 H 129/63 91 03/23/19 12:30 72 33 H 125/57 L 91 03/23/19 12:15 74 29 H 119/60 92 03/23/19 12:00 36.5 C 67 25 H 123/53 L 92 03/23/19 11:53 75 118/54 L 03/23/19 11:16 70 27 H 91 03/23/19 11:15 70 27 H 91 03/23/19 11:00 71 28 H 120/71 92 03/23/19 10:00 70 25 H 108/58 L 94 03/23/19 09:00 74 27 H 105/65 93 03/23/19 08:00 36.4 C L 74 26 H 117/71 91 03/23/19 07:52 70 70 30 H 89 L 03/23/19 07:00 66 26 H 133/57 L 97 03/23/19 05:30 61 21 121/56 L 96 03/23/19 05:00 36.4 C L 65 25 H 114/80 98 03/23/19 04:30 66 25 H 130/58 L 94 03/23/19 04:00 68 25 H 124/59 L 95 03/23/19 03:30 64 23 118/58 L 98 PG Care Time/CCT Total # of Minutes Spent Total Time Spent with Patient: Total time spent is greater than 50% in coordination of care (as documented) at patient's floor/unit and/or counseling patient:
[2019-03-23] MEDS ORDERED: CHLOROTHIAZIDE SODIUM 250 MG in DEXTROSE 5% 50 ML IV SCH (15:30)
--- NOTE | 2019-03-23 17:08 | Infectious Disease Progress Nt ---
Date of Service March 23, 2019 Assessment & Plan (1) Traumatic hematoma of abdominal wall with infection: Patient with abdominal wall infection after trauma with hematoma, cultures positive for E. coli, status post drainage and wound VAC placement, now with respiratory failure, more likely from congestive heart failure than pneumonia. Agree however needs to be treated empirically for pneumonia given elevation of procalcitonin pending further culture results. Will follow. (2) Pneumonia: Subjective The patient is resting comfortably in bed, however, on a BiPAP mask. Remains afebrile, no increase in shortness of breath or cough. No hemoptysis. No fever. Review of Systems Review of Systems: All systems reviewed & are unremarkable except as noted in HPI & below Physical Exam Constitutional: WD/WN, vitals as above comfortable; no acute distress Eyes: PERRL, conjunctivae normal, anicteric sclerae ENMT: external ear and nose normal, oropharynx normal Neck: trachea midline, no thyromegaly neck nontender Respiratory: normal respiratory effort, lungs clear to auscultation normal percussion; does not use accessory muscles Cardiovascular: Rate/Rhythm: regular rate and regular rhythm Heart Sounds: normal S1 and normal S2; no gallop, no murmur and no cardiac rub Vessels: normal peripheral pulses; no JVD Gastrointestinal (Abdomen): Inspection/Auscultation: abdomen normal to inspection and normal bowel sounds Percussion/Palpation: no hepatosplenomegaly and no abdominal mass Clean abdominal wound Musculoskeletal: no cyanosis or clubbing, extremities motor strength 5/5 Spine: thoracic spine normal to inspection and lumbar spine normal to inspection; no cervical spinal tenderness Skin: no rashes, warm and dry normal turgor; no lesions Neurologic: patellar DTR's 2+ bilat, sensation intact no focal motor deficits Psychiatric: A+Ox3, euthymic affect Orientation: cooperative Lymphatic: no cervical or axillary lymphadenopathy no inguinal lymphadenopathy Results & Data Vital Signs (Past 12 Hours) Vital Signs Temp Pulse Pulse Resp BP Pulse Ox 03/23/19 16:00 36.8 C 76 24 132/70 89 L 03/23/19 15:10 71 22 94 03/23/19 15:00 70 25 H 139/64 96 03/23/19 14:59 71 21 93 03/23/19 14:00 71 31 H 130/66 91 03/23/19 13:00 71 25 H 129/63 91 03/23/19 12:30 72 33 H 125/57 L 91 03/23/19 12:15 74 29 H 119/60 92 03/23/19 12:00 36.5 C 67 25 H 123/53 L 92 03/23/19 11:53 75 118/54 L 03/23/19 11:16 70 27 H 91 03/23/19 11:15 70 27 H 91 03/23/19 11:00 71 28 H 120/71 92 03/23/19 10:00 70 25 H 108/58 L 94 03/23/19 09:00 74 27 H 105/65 93 03/23/19 08:00 36.4 C L 74 26 H 117/71 91 03/23/19 07:52 70 70 30 H 89 L 03/23/19 07:00 66 26 H 133/57 L 97 03/23/19 05:30 61 21 121/56 L 96 Laboratory Results Short CBC 03/23/19 Range/Units 04:01 WBC 19.51 H (4.8-10.8) K/uL Hgb 10.1 L (12.0-16.0) g/dL Hct 31.5 L (37-47) % Plt Count 307 (130-400) K/uL BMP 03/22/19 03/23/19 03/23/19 20:02 04:01 13:47 Sodium 142 141 143 Potassium 3.6 3.7 3.8 Chloride 104 104 106 Carbon Dioxide 32 31 31 BUN 34 H 31 H 30 H Creatinine 0.96 0.95 0.98 Glucose 112 H 106 H 101 H Calcium 8.9 8.8 9.0 Diagnostic Findings Microbiology 03/18/19 09:38 Blood Aerobic Blood Culture - Final No growth in Aerobic bottle after 5 days. 03/18/19 09:38 Blood Anaerobic Blood Culture - Final No growth in Anaerobic bottle after 5 days. 03/18/19 08:24 Blood Aerobic Blood Culture - Final No growth in Aerobic bottle after 5 days. 03/18/19 08:24 Blood Anaerobic Blood Culture - Final No growth in Anaerobic bottle after 5 days. 03/18/19 12:00 Urine,Straight Cath Urine Culture - Final No growth - less than 1,000 colonies/mL. XR chest 1V portable HISTORY: 88 years-old Female f/u follow-up study in a patient with acute shortness of breath and bilateral lung opacities COMPARISON: Chest radiograph 03/21/2019 TECHNIQUE: Portable AP view of the chest FINDINGS: Cardiac silhouette is enlarged, unchanged. Calcified plaque of the thoracic aortic arch. Trace pleural effusions. Progressive bilateral mixed interstitial and alveolar opacities, right greater than left with relative sparing of the left lung apex. Degenerative changes of the shoulders and spine. IMPRESSION: 1. Cardiomegaly with progressively worsened bilateral mixed interstitial and alveolar opacities suggestive of multifocal pneumonia versus asymmetric pulmonary edema. 2. Small pleural effusions. The above report was generated using voice recognition software. It may contain grammatical, syntax or spelling errors. Electronically signed by: Shay Yousif M.D. 03/23/2019 7:15 AM Dictated: 03/23/19713 Transcribed: 03/23/19713 PG Care Time/CCT Total # of Minutes Spent Total Time Spent with Patient: Total time spent is greater than 50% in coordination of care (as documented) at patient's floor/unit and/or counseling patient: (1) Traumatic hematoma of abdominal wall with infection Encounter type: subsequent encounter Qualified Code(s): S30.1XXD - Contusion of abdominal wall, subsequent encounter; L08.9 - Local infection of the skin and subcutaneous tissue, unspecified (2) Pneumonia Laterality: right Lung location: lower lobe of lung Pneumonia type: due to unspecified organism Qualified Code(s): J18.1 - Lobar pneumonia, unspecified organism
[2019-03-23 20:30] LABS: BUN Creatinine Ratio 34.3 (10-20); Calcium 9.2 mg/dl (8.5-10.1); Creatinine Clr Calc Pharmacy 44.1 ml/min; Est GFR (African American) 73.5; Est GFR (Non-African American) 63.4; Magnesium 2.3 mg/dl (1.8-2.4); Phosphorus 2.8 mg/dl (2.5-4.9); Potassium 3.1 mmol/L (3.5-5.1)
[2019-03-23] MEDS: ATORVASTATIN 20 MG TAB PO SCH (20:37)
[2019-03-23] MEDS: LEVOTHYROXINE SODIUM 25 MCG TABLET PO SCH (20:38)
[2019-03-23] MEDS: MULTIVITAMIN TAB PO SCH (20:38)
[2019-03-23] MEDS: FLUOXETINE HCL 20 MG CAP PO SCH (20:38)
[2019-03-23] MEDS: VANCOMYCIN HCL 1,000 MG in SODIUM CHLORIDE 0.9% 250 ML IV SCH (21:25)
[2019-03-24] MEDS: POTASSIUM CHLORIDE / WTR 10 MEQ/100 ML PLCT IV SCH ×6 (00:21→10:52)
[2019-03-24] MEDS: ALBUT/IPRATROP 3MG/0.5MG NEB 3 ML VIAL NEB SCH ×6 (03:12→23:24)
[2019-03-24] MEDS: IMIPENEM/CILASTATIN SODIUM 300 MG in DEXTROSE 5% 100 ML IV SCH ×4 (03:43→21:29)
[2019-03-24 04:57] LABS: Hemoglobin 9.6 g/dL (12.0-16.0); Mean Corpuscular Hemoglobin 27.7 pg (25-34); Mean Corpuscular Volume 86.5 fL (80-100); Mean Platelet Volume 8.8 fL (7.4-10.4); Platelet Count 320 K/uL (130-400); RDW Standard Deviation 53.9 fL (36.4-46.3); Red Blood Count 3.47 M/uL (4.2-5.4); White Blood Count 13.95 K/uL (4.8-10.8)
[2019-03-24 05:17] LABS: Est GFR (African American) 72.4; Est GFR (Non-African American) 62.5; Potassium 3.4 mmol/L (3.5-5.1)
[2019-03-24 05:18] LABS: Calcium 8.9 mg/dl (8.5-10.1); Creatinine Clr Calc Pharmacy 43.5 ml/min; Magnesium 2.2 mg/dl (1.8-2.4)
[2019-03-24 05:23] LABS: Phosphorus 2.7 mg/dl (2.5-4.9)
[2019-03-24] MEDS: INSULIN ASPART 100 UNITS/ML 3 ML PEN SC SCH ×4 (05:49→23:53)
[2019-03-24] MEDS: METOPROLOL TARTRATE 1 MG/ML VIAL IV SCH ×4 (05:57→23:38)
[2019-03-24] MEDS: BUDESONIDE 0.5 MG/2 ML VIAL (PULMICORT) NEB SCH ×2 (07:48→19:33)
--- NOTE | 2019-03-24 08:22 | XRay Report ---
SINGLE VIEW CHEST CLINICAL HISTORY: Dyspnea. FINDINGS: 2 AP, portable, upright chest radiographs are compared to study dated 03/23/2019. The examina tion is degraded by portable technique and patient rotation. The heart is enlarged and there is ather osclerotic calcification of the thoracic aorta. There are small pleural effusions. Patchy bilateral a irspace opacities are again seen throughout both lungs. This is asymmetrically greater on the right, and this has modestly cleared from yesterday. No pneumothorax is seen. The skeletal structures are os teopenic. The bony thorax is grossly intact. Degenerative change is seen in the shoulders and thoraci c spine. A large renal calculus is identified in the right upper quadrant. IMPRESSION: 1. Cardiomegaly. 2. Bilateral patchy airspace opacities asymmetrically greater on the right have modestly cleared from yesterday. Differential considerations remain pulmonary edema and/or multifocal pneumonia. 3. Small pleural effusions. Electronically signed by: Justin Flores M.D. 03/24/2019 8:20 AM
[2019-03-24] MEDS: FERROUS SULFATE 325 MG TAB PO SCH ×2 (08:32→17:51)
[2019-03-24] MEDS: FLUTICASONE/VILANTEROL INHALER INH SCH (08:32)
[2019-03-24] MEDS: DOCUSATE SODIUM 100 MG CAP PO SCH ×2 (08:32→20:12)
[2019-03-24] MEDS: POTASSIUM CHLORIDE 10 MEQ TABCR PO SCH (08:33)
[2019-03-24] MEDS: CLOPIDOGREL BISULFATE 75 MG TAB PO SCH (08:33)
[2019-03-24] MEDS: MAGNESIUM OXIDE 400 MG TAB PO SCH ×2 (08:33→20:12)
[2019-03-24] MEDS: CHOLECALCIFEROL 1,000 UNITS TAB PO SCH (08:33)
[2019-03-24] MEDS: SACCHAROMYCES BOULARDII 250 MG CAP PO SCH (08:33)
[2019-03-24] MEDS: FLUOXETINE HCL 10 MG CAP PO SCH (08:33)
[2019-03-24] MEDS: CALCIUM CARBONATE 1250MG TAB PO SCH ×2 (08:33→20:12)
[2019-03-24] MEDS: FAMOTIDINE 20 MG in SYRINGE 3 ML IV SCH (09:24)
[2019-03-24] MEDS: HEPARIN SOD 5,000 UNIT/0.5 ML VIAL SQ SCH ×2 (09:25→20:24)
[2019-03-24] MEDS: FUROSEMIDE 40 MG in SYRINGE 0 ML IV SCH ×3 (09:25→23:53)
[2019-03-24] MEDS: NYSTATIN POWDER 15GM BTL EXT SCH ×3 (09:26→20:24)
[2019-03-24] MEDS: METOPROLOL TARTRATE 1 MG/ML VIAL IV PRN ×3 (10:34→10:48)
--- NOTE | 2019-03-24 10:45 | Critical Care Progress Note ---
Date of Service March 24, 2019 Assessment & Plan (1) Acute on chronic diastolic CHF (congestive heart failure): Impression: 88-year-old female with atrial fibrillation rapid ventricular response admitted with diffuse pulmonary infiltrates and hypoxemic respiratory failure. Differential remains unchanged, atypical pulmonary edema versus healthcare associated pneumonia versus other potential etiologies including cryptogenic organizing pneumonia. Recommendations: 1. Acute hypoxemic respiratory failure: Differential as noted above. The patient has shown some improvement over the last 12 to 24 hours. Will decrease FiO2 to 80 0.4 and CPAP to 10 this morning and if she does well plan on transitioning to heated high flow oxygen system to see how she does off positive airway pressure. 2. Acute diastolic heart failure: Continue diuretic regimen of Diuril and Lasix. 2 L negative with significant clearing of the chest x-ray arguing for significant component of fluid. Creatinine is stable. Would continue diuresis as tolerated until creatinine bumps. She did have significant hypertension which has now been reasonably controlled and she is off Cardene. 3. Atrial fibrillation with rapid ventricular response. The patient had received an amiodarone load. We will increase her metoprolol and give metoprolol boluses now. If this remains problematic, consideration for an esm olol drip may be appropriate. Can restart amiodarone if refractory. Digoxin may be another consideration although her advanced age and multiple medical comorbidities make this a less attractive option. She will require anticoagulation 4. Hypothyroidism: Holding Synthroid for now as the patient is not really able to take oral medications. 5. Healthcare associated pneumonia: D#3 imipenem. ID consultation was obtained. Her white count is decreasing with antimicrobial therapy. Anticipate 7 to 10 days therapy. 6. Hypokalemia: Replacement protocols in place. Follow magnesium and replete as well. 7. Nutrition: Need to address if the patient is able to come off of noninvasive positive pressure ventilation. 8. Deconditioning: The patient will require aggressive PT OT and speech therapy once her respiratory status is stabilized and improved. Patient remains critically ill with significant possibility of clinical deterioration. Family was updated at the bedside. (2) PAF (paroxysmal atrial fibrillation): (3) DVT prophylaxis: (4) Acute respiratory failure with hypoxia: (5) Traumatic hematoma of abdominal wall with infection: (6) Admitted to intensive care unit: (7) GERD (gastroesophageal reflux disease): (8) CAD (coronary artery disease): Subjective Patient is currently awake alert on full face BiPAP. She has tolerated it decreasing of her oxygen requirement as well as her CPAP pressure setting overnight. Unfortunately she returned to A. fib with rapid ventricular response and is currently sitting with heart rates in the 120s. She is tolerating this well from a hemodynamic standpoint. Her white count continues to decrease. She is not coughing or expectorating phlegm. Family remains at the bedside. Review of Systems Review of Systems: Unchanged from prior Physical Exam Constitutional: Elderly female in no obvious distress. Fullface BiPAP in place. ENMT: Limited due to fullface BiPAP Neck: trachea midline, no thyromegaly Respiratory: Coarse crackles present bilaterally. No wheezing Cardiovascular: Irregularly irregular S1-S2 Gastrointestinal (Abdomen): normal bowel sounds, soft, nontender, no hepatosplenomegaly Skin: No acute abnormalities Results & Data Vital Signs (Past 12 Hours) Vital Signs Temp Pulse Pulse Pulse Resp BP BP 03/24/19 08:00 36.8 C 124 H 25 H 155/94 H 03/24/19 07:48 110 H 110 H 26 H 03/24/19 07:00 110 H 25 H 134/96 03/24/19 06:00 123 H 123 H 26 H 140/95 03/24/19 05:57 124 H 137/95 03/24/19 05:00 107 H 107 H 21 137/95 03/24/19 04:00 125 H 125 H 26 H 137/87 03/24/19 03:12 108 H 93 H 108 H 24 03/24/19 03:00 131 H 131 H 25 H 135/79 03/24/19 02:00 111 H 111 H 19 144/84 H 03/24/19 01:00 37 C 118 H 118 H 27 H 135/94 03/24/19 00:00 122 H 122 H 24 145/78 H 03/23/19 23:00 112 H 112 H 26 H 128/92 03/23/19 22:37 121 H 22 BP Pulse Ox 03/24/19 08:00 96 03/24/19 07:48 94 03/24/19 07:00 94 03/24/19 06:00 140/95 92 03/24/19 05:57 03/24/19 05:00 137/95 91 03/24/19 04:00 137/87 94 03/24/19 03:12 93 08/10/19 03:00 135/79 93 03/24/19 02:00 144/84 H 92 03/24/19 01:00 135/94 90 03/24/19 00:00 145/78 H 93 03/23/19 23:00 128/92 90 03/23/19 22:37 93 Laboratory Results 03/24/19 04:33 03/24/19 04:33 Diagnostic Findings Chest x-ray independently reviewed from today SINGLE VIEW CHEST CLINICAL HISTORY: Dyspnea. FINDINGS: 2 AP, portable, upright chest radiographs are compared to study dated 03/23/2019. The examination is degraded by portable technique and patient rotation. The heart is enlarged and there is atherosclerotic calcification of the thoracic aorta. There are small pleural effusions. Patchy bilateral airspace opacities are again seen throughout both lungs. This is asymmetrically greater on the right, and this has modestly cleared from yesterday. No pneumothorax is seen. The skeletal structures are osteopenic. The bony thorax is grossly intact. Degenerative change is seen in the shoulders and thoracic spine. A large renal calculus is identified in the right upper quadrant. IMPRESSION: 1. Cardiomegaly. 2. Bilateral patchy airspace opacities asymmetrically greater on the right have modestly cleared from yesterday. Differential considerations remain pulmonary edema and/or multifocal pneumonia. 3. Small pleural effusions. PG Care Time/CCT Total # of Minutes Spent Total Time Spent with Patient: Total time spent is greater than 50% in coordination of care (as documented) at patient's floor/unit and/or counseling patient: Critical Care Time: Yes Total Critical Care Time: 47 (1) Traumatic hematoma of abdominal wall with infection Encounter type: subsequent encounter Qualified Code(s): S30.1XXD - Contusion of abdominal wall, subsequent encounter; L08.9 - Local infection of the skin and subcutaneous tissue, unspecified (2) GERD (gastroesophageal reflux disease) Esophagitis presence: esophagitis presence not specified Qualified Code(s): K21.9 - Gastro-esophageal reflux disease without esophagitis (3) CAD (coronary artery disease) Coronary Disease-Associated Artery/Lesion type: [place] artery [place] vs. transplanted heart: [place] heart Associated angina: without angina Qualified Code(s): I25.10 - Atherosclerotic heart disease of [place] coronary artery without angina pectoris
--- NOTE | 2019-03-24 12:26 | Hospitalist Progress Note ---
Date of Service March 24, 2019 Assessment & Plan (1) Acute on chronic diastolic CHF (congestive heart failure): Echo 02/12/19 with preserved EF - acute on chronic diastolic heart failure Possible etiologies for her decompensated diastolic CHF -- uncontrolled a.fib, lack of diuretic (was on HCTZ when she left [facility]; it was apparently d/c while at rehab), dietary issues, etc. No evidence of ischemia. Symptoms gradually worsened over 1-2 weeks. Hydrochlorothiazide was stopped at discharge from [facility] Patient converted to SR from Afib RVR 03/21 while on amiodarone gtt and beta- blockers per cardiology Continue aggressive diuresis as above Cardiology consulted (2) Acute respiratory failure with hypoxia: Patient required transfer to ICU 03/22 for hypoxic respiratory failure and chest pain. Placed on bipap and nitro gtt. Nitro gtt now discontinued, patient placed on HiFlo 03/24 Acute on chronic diastolic heart failure associated with cessation of diuretic therapy as an outpatient and A.fib Continue to doubt pulmonary toxicity from amiodarone - this was initiated on 02/27/19 Asthma/COPD exacerbation could also be contributing Continue Vanc and Imipenem Aggressive diuresis with furosemide, Diuril Conventional Mortgage [employer] consulted (3) PAF (paroxysmal atrial fibrillation): Changed oral amiodarone to amiodarone drip per cardiology recommendation 03/21, metoprolol increased to help rate control - she has been going in and out of SR and Afib RVR since initiation of amiodarone During prior hospital stay she was significantly anemic due to bleeding from her intra-abdominal hematoma; thus anticoagulation was deferred. (4) Pneumonia: Procalcitonin to 1.9 Zosyn changed to Premaxin and Vanco BC negative ID onboard (5) Chronic kidney disease, stage 3a: Cr stable will follow with increased diuresis (6) Hypothyroidism: continue Synthroid (7) Hyperlipidemia: continue statin (8) Asthma: IV steroids now dc'd, continue scheduled nebs BIPAP transitioned to HiFlo (9) CAD (coronary artery disease): Troponin was negative; she has no symptoms even with rapid ventricular rate Nonobstructive coronary artery disease identified on a cardiac catheterization in May 2009. (10) HTN (hypertension): continue Metoprolol, no longer requiring nicardipine gtt (11) Obstructive sleep apnea, adult: CPAP HS (12) Traumatic hematoma of abdominal wall with infection: Had spontaneous rupture of large intra-abdominal hematoma in February during her prolonged stay. The hematoma was due to a prior fall. Following rupture Dr Pablo performed I/D in the OR. Cultures showed e.coli. She has been on augmentin since and was meant to continue with prolonged course The abdominal wound is getting smaller with use of Wound Vac. It is changed M/W/F. Wound care clinic follows this. Will consult the wound care nurse. ID consulted (13) Anemia: Has received 2 units of blood cells this admission Previous work-up showed the anemia was likely due to bleeding from the intra- abdominal hematoma and also anemia of chronic disease. Continue ferrous sulfate. Patient did not have any melena or obvious blood loss source of her hemoglobin - hgb has been stable for multiple days (14) Transient ischemic attack: Had TIA during prior admission. Also with h/o CVA many years ago. On Plavix for secondary prevention - has been held while on bipap Ideally should be on anticoagulation because of PAF but this has been deferred -- see discussion above. (15) DVT prophylaxis: (15) DVT prophylaxis: dvt prophylaxis heparin bid, SCDs Palliative care consulted for goals of care - patient agrees to intubation if absolutely necessary, would not want prolonged mechanical ventilation, would like her daughter to make medical decisions for her if she is unable. Subjective Ms. Parra is drowsy but awakens easily. She has no complaints. Off bipap on high flow O2. Spent time answering family questions Review of Systems Review of Systems: All systems reviewed & are unremarkable except as noted in HPI & below Physical Exam Physical Exam: General: no distress Eyes: normal inspection, PERLL Respiratory: chest non tender, clear to auscultation, normal breath sounds, no respiratory distress, no accessory muscle use Cardiac: irregular rate and rhythm, no rub or gallop, no murmur, no edema, no jvd GI/: active bowel sounds, no abd pain or tenderness, soft, non distended Extremities: normal range of motion, normal strength, non tender Neuro/Psych: alert and oriented x 3, normal mood and affect Skin: normal color, dry Results & Data Vital Signs (Past 12 Hours) Vital Signs Temp Pulse Pulse Pulse Resp BP BP 03/24/19 12:19 121 H 115/75 03/24/19 11:09 03/24/19 11:08 103 H 26 H 03/24/19 11:00 128 H 22 125/91 03/24/19 10:48 110 H 136/89 03/24/19 10:41 113 H 144/110 H 03/24/19 10:34 122 H 143/104 H 03/24/19 10:00 114 H 24 149/104 H 03/24/19 09:01 120 H 28 H 145/89 H 03/24/19 09:00 119 H 25 H 03/24/19 08:00 36.8 C 124 H 25 H 155/94 H 03/24/19 07:48 110 H 110 H 26 H 03/24/19 07:00 110 H 25 H 134/96 03/24/19 06:00 123 H 123 H 26 H 140/95 03/24/19 05:57 124 H 137/95 03/24/19 05:00 107 H 107 H 21 137/95 03/24/19 04:00 125 H 125 H 26 H 137/87 03/24/19 03:12 108 H 93 H 108 H 24 03/24/19 03:00 131 H 131 H 25 H 135/79 03/24/19 02:00 111 H 111 H 19 144/84 H 03/24/19 01:00 37 C 118 H 118 H 27 H 135/94 BP Pulse Ox 03/24/19 12:19 03/24/19 11:09 90 03/24/19 11:08 93 03/24/19 11:00 88 L 03/24/19 10:48 03/24/19 10:41 03/24/19 10:34 03/24/19 10:00 98 03/24/19 09:01 89 L 03/24/19 09:00 86 L 03/24/19 08:00 96 03/24/19 07:48 94 03/24/19 07:00 94 03/24/19 06:00 140/95 92 03/24/19 05:57 03/24/19 05:00 137/95 91 03/24/19 04:00 137/87 94 03/24/19 03:12 93 03/24/19 03:00 135/79 93 03/24/19 02:00 144/84 H 92 03/24/19 01:00 135/94 90 PG Care Time/CCT Total # of Minutes Spent Total Time Spent with Patient: Total time spent is greater than 50% in coordination of care (as documented) at patient's floor/unit and/or counseling patient: (1) Pneumonia Laterality: right Lung location: lower lobe of lung Pneumonia type: due to unspecified organism Qualified Code(s): J18.1 - Lobar pneumonia, unspecified organism (2) Hypothyroidism Hypothyroidism type: acquired Qualified Code(s): E03.9 - Hypothyroidism, unspecified (3) Hyperlipidemia Hyperlipidemia type: mixed hyperlipidemia Qualified Code(s): E78.2 - Mixed hyperlipidemia (4) Asthma Asthma severity: unspecified severity Asthma persistence: unspecified Asthma complication type: uncomplicated Qualified Code(s): J45.909 - Unspecified asthma, uncomplicated (5) CAD (coronary artery disease) Coronary Disease-Associated Artery/Lesion type: [place] artery [place] vs. transplanted heart: [place] heart Associated angina: without angina Qualified Code(s): I25.10 - Atherosclerotic heart disease of [place] coronary artery without angina pectoris (6) HTN (hypertension) Hypertension type: essential hypertension Qualified Code(s): I10 - Essential (primary) hypertension (7) Traumatic hematoma of abdominal wall with infection Encounter type: subsequent encounter Qualified Code(s): S30.1XXD - Contusion of abdominal wall, subsequent encounter; L08.9 - Local infection of the skin and subcutaneous tissue, unspecified (8) Anemia Anemia type: unspecified type Qualified Code(s): D64.9 - Anemia, unspecified
--- NOTE | 2019-03-24 14:47 | Pharmacy Report ---
Glycemic Control Progress Note - Date of Service March 24, 2019 - Scope Glycemic Pharmacist consulted for glycemic control to write orders per [facility] inpatient glycemic control protocol. - Objective Accuchecks BSG(last 24 hours):: 03/23/19 03/23/19 03/23/19 17:57 19:47 23:03 Glucose 107 H POC Glucose 115 H 108 H 03/24/19 03/24/19 04:33 12:04 Glucose 125 H POC Glucose 109 H HbA1c:: Hemoglobin A1c 5.6 % (4.5-5.6) 03/23/19 04:01 - Recent Pertinent Medications The patient is currently receiving: * Basal insulin: Lantus -- units every -- hours * Correctional Insulin: Novolog Correction per scale ACHS Goal Range: Low 110 mg/dL - High 140 mg/dL Correction Factor: 35 mg/dL/unit * Prandial insulin: Per carb ratio of 1 unit per -- grams CHO consumed - Outpatient Anti-Diabetic Meds N/A - Assessment & Plan ASSESSMENT: * See progress note from 03/22/19 for more background info, in short: * Pt receiving SQ basal bolus insulin regimen for hyperglycemia secondary to baseline DM (outpatient regimen on hold),stress/infection (vancomycin and Primaxin). * Patient is currently receiving an average of 0 units of insulin per day * 0 units of basal insulin * 0 units of prandial/correctional insulin * BSGs ranging 101 - 117 mg/dl over the past 24hrs * Changes needed to insulin regimen: * AM Fasting BSG = 125 mg/dl. This is in goal range for patient based on inpatient targets and co-morbidities. Therefore Basal insulin will continue to be held. It appears patient's hyperglycemia originated from steroids. * Post-prandial BSGs are in range therefore no changes needed to CF/CR. * Total daily dose = 0 units. This will vary based upon patient receiving steroids and also may change when she eats. PLAN FOR INPATIENT GLYCEMIC CONTROL: * Continuing correction factor of 35 mg/dl/unit * NO carb ratio * Continuing goal range of Low 110 mg/dL - High 140 mg/dL RECOMMENDATIONS FOR DISCHARGE: * Patient is not a diabetic so no medications on discharge. * Please note that the plan above was derived based on current level of insulin resistance and hospital stress. These recommendations are appropriate for inpatient admission only. Plan of care upon discharge will need to be reassessed to avoid potential outpatient hypo/hyperglycemia. Thank you.
[2019-03-24] MEDS: VANCOMYCIN HCL 1,250 MG in SODIUM CHLORIDE 0.9% 250 ML IV SCH (17:58)
[2019-03-24] MEDS: ATORVASTATIN 20 MG TAB PO SCH (20:12)
[2019-03-24] MEDS: LEVOTHYROXINE SODIUM 25 MCG TABLET PO SCH (20:12)
[2019-03-24] MEDS: MULTIVITAMIN TAB PO SCH (20:12)
[2019-03-24] MEDS: FLUOXETINE HCL 20 MG CAP PO SCH (20:12)
[2019-03-24] MEDS: DIGOXIN 125 MCG in SYRINGE 9.5 ML IV SCH (20:23)
[2019-03-24] MEDS ORDERED: VANCOMYCIN TROUGH ONE (20:30)
[2019-03-24] MEDS ORDERED: DIGOXIN 125 MCG in SYRINGE 9.5 ML IV ONE (20:30)
--- NOTE | 2019-03-24 21:31 | Pharmacy Report ---
Pharmacy Abx Dose Short Note - Date of Service March 24, 2019 - Assessment & Plan Assessment * 88 year old F receiving Vancomycin 1000 mg IV q24h for treatment of Pneumonia/ abdominal wall infection. * Day #4 of antimicrobial therapy. * A random Vancomycin level was obtained at 1630 today. This was earlier than when the dose was due at 2100 since we suspected that it would be low. Laboratory Tests 03/24/19 16:30 Random Vancomycin 13.8 Plan Vancomycin * Random level of 13.8 mcg/mL drawn 4.5 hrs earlier than the dose was due is subtherapeutic. * Vanco dose was therefore increased to 1250 mg (17.6 mg/kg) IV every 24 hours and started at 1800 today. * Goal trough level for Pneumonia: 15 to 20 mcg/mL. * Trough level ordered for: 03/26/19 before dose at 1800. Pharmacy will continue to follow and will adjust dose/frequency as necessary. Thank you.
[2019-03-24] MEDS ORDERED: ESMOLOL BOLUS FROM BAG IV ONE (23:27)
[2019-03-24] MEDS: ESMOLOL / NSS 2,500 MG/250 ML BAG IV SCH (23:52)
[2019-03-25 01:12] LABS: BUN Creatinine Ratio 38.8 (10-20); Calcium 9.1 mg/dl (8.5-10.1); Creatinine Clr Calc Pharmacy 43.5 ml/min; Est GFR (African American) 72.4; Est GFR (Non-African American) 62.5; Potassium 3.4 mmol/L (3.5-5.1)
[2019-03-25] MEDS: DIGOXIN 125 MCG in SYRINGE 9.5 ML IV SCH ×2 (01:59→08:21)
[2019-03-25 02:09] LABS: Basophils # (auto) 0.01 K/uL (0-0.2); Basophils % (auto) 0.1 %; Eosinophils # (auto) 0.46 K/uL (0-0.5); Eosinophils % (auto) 3.3 %; Hematocrit (blood only) 31.5 % (37-47); Hemoglobin 10.2 g/dL (12.0-16.0); Immature Granulocytes # (auto) 0.06 K/uL (0.00-0.02); Immature Granulocytes % (auto) 0.4 %; Lymphocytes # (auto) 0.57 K/uL (1.2-3.4); Lymphocytes % (auto) 4.1 %; Mean Corpuscular Hemoglobin 28.1 pg (25-34); Mean Corpuscular Hgb Conc 32.4 g/dL (32-36); Mean Corpuscular Volume 86.8 fL (80-100); Mean Platelet Volume 8.3 fL (7.4-10.4); Monocytes # (auto) 0.52 K/uL (0.11-0.59); Monocytes % (auto) 3.8 %; Neutrophils % (auto) 88.3 %; Platelet Count 348 K/uL (130-400); RDW Coefficient of Variation 16.8 % (11.5-14.5); RDW Standard Deviation 53.5 fL (36.4-46.3); Red Blood Count 3.63 M/uL (4.2-5.4); White Blood Count 13.82 K/uL (4.8-10.8)
[2019-03-25] MEDS: POTASSIUM CHLORIDE / WTR 10 MEQ/100 ML PLCT IV SCH ×4 (02:20→05:36)
[2019-03-25 02:35] LABS: BUN Creatinine Ratio 37.4 (10-20); Calcium 8.9 mg/dl (8.5-10.1); Est GFR (African American) 71.4; Est GFR (Non-African American) 61.6; Magnesium 2.3 mg/dl (1.8-2.4); Potassium 3.3 mmol/L (3.5-5.1)
[2019-03-25] MEDS: ALBUT/IPRATROP 3MG/0.5MG NEB 3 ML VIAL NEB SCH ×6 (03:42→23:44)
[2019-03-25] MEDS: IMIPENEM/CILASTATIN SODIUM 300 MG in DEXTROSE 5% 100 ML IV SCH ×4 (04:31→22:03)
[2019-03-25] MEDS: INSULIN ASPART 100 UNITS/ML 3 ML PEN SC SCH ×2 (05:38→11:47)
--- NOTE | 2019-03-25 06:55 | XRay Report ---
XR chest 1V portable CLINICAL HISTORY: 88 years-old Female presenting with f/u. TECHNIQUE: Portable upright AP view of the chest was obtained. COMPARISON: 03/24/2019. FINDINGS: Atherosclerosis of the aortic arch. Cardiac silhouette enlarged. Diffuse right lung opacity without e vidence of improvement. Trace improved aeration of the left lung base. Bilateral pleural effusions hedrick spected. No pneumothorax. Degenerative changes of the shoulders and spine. Hyperdensity projects over the right upper quadrant correlating to the right renal calculus seen on prior CT. IMPRESSION: 1. Persistent dense bilateral though right lung predominant infiltrates most compatible with multifo sherron pneumonia. 2. Small bilateral pleural effusions. 3. Cardiomegaly. Electronically signed by: Agustin Small M.D. 03/25/2019 6:54 AM
[2019-03-25] MEDS: BUDESONIDE 0.5 MG/2 ML VIAL (PULMICORT) NEB SCH ×2 (07:27→19:06)
--- NOTE | 2019-03-25 07:54 | Critical Care Progress Note ---
Date of Service March 25, 2019 Assessment & Plan (1) Acute on chronic diastolic CHF (congestive heart failure): Impression: 88-year-old female with atrial fibrillation rapid ventricular response admitted with diffuse pulmonary infiltrates and hypoxemic respiratory failure. Differential remains unchanged, atypical pulmonary edema versus healthcare associated pneumonia versus other potential etiologies including cryptogenic organizing pneumonia. Recommendations: 1. Acute hypoxemic respiratory failure: Differential as noted above. The patient has tolerated transition to heated high flow flow rates. We will continue CPAP at 8 cm of water (her home settings) nightly and as needed during the day. 2. Acute diastolic heart failure: Continue diuretic regimen of Diuril and Lasix. 1 L negative with significant clearing of the chest x-ray arguing for significant component of fluid. Creatinine is stable. Would continue diuresis as tolerated until creatinine bumps. She did have significant hypertension which has now been reasonably controlled and she is off Cardene. 3. Atrial fibrillation with rapid ventricular response. Patient now converted with esmolol and digoxin. Holding metoprolol. Swallow study pending today. If the patient passes the swallow will restart oral metoprolol and amiodarone. I will continue her digoxin for now. Will need full anticoagulation given the paroxysmal nature of her atrial fibrillation once she is clinically stable. 4. Hypothyroidism: Holding Synthroid for now as the patient is not really able to take oral medications. Restart if she passes the swallow study 5. Healthcare associated pneumonia: D#4 imipenem/vancomycin. ID consultation was obtained. Her white count is decreasing with antimicrobial therapy. Anticipate 7 to 10 days therapy. 6. Hypokalemia: Replacement protocols in place. Follow magnesium and replete as well. 7. Nutrition: Swallow study with speech therapy today. Diet per speech. 8. Deconditioning: The patient will require aggressive PT OT and speech therapy once her respiratory status is stabilized and improved. We will try and get her out of bed to the chair today Patient remains critically ill with significant possibility of clinical deterioration. Discussed with ICU nurse and patient at bedside (2) PAF (paroxysmal atrial fibrillation): (3) DVT prophylaxis: (4) Acute respiratory failure with hypoxia: (5) Traumatic hematoma of abdominal wall with infection: (6) Admitted to intensive care unit: (7) GERD (gastroesophageal reflux disease): (8) CAD (coronary artery disease): Subjective Patient reports she is feeling somewhat better. Overnight she received an IV dose of digoxin and was initiated on an esmolol sinus rhythm being. She is remained hemodynamically stable on esmolol. Her IV metoprolol has been held. She tolerated heated high flow oxygen over the last 24 hours and did use a sleep At night at 10 cmH2O. She states this morning she feels better. She is anxious to eat and get out of bed. Review of Systems Review of Systems: Unchanged from prior Physical Exam Constitutional: Elderly female in no obvious distress. She is on high flow oxygen Neck: trachea midline, no thyromegaly Respiratory: Coarse crackles present in the right lung field. No wheezing Cardiovascular: Regular S1-S2. Gastrointestinal (Abdomen): normal bowel sounds, soft, nontender, no hepatosplenomegaly Skin: no rashes, warm and dry Results & Data Vital Signs (Past 12 Hours) Vital Signs Temp Pulse Pulse Pulse Resp BP BP 03/25/19 07:34 64 03/25/19 07:28 63 22 03/25/19 06:15 61 21 03/25/19 06:00 59 L 59 L 23 181/79 H 03/25/19 05:00 62 62 23 168/70 H 03/25/19 04:00 36.9 C 68 68 26 H 170/80 H 03/25/19 03:43 66 66 21 03/25/19 03:00 66 66 26 H 145/92 H 03/25/19 02:00 67 67 28 H 127/93 03/25/19 01:59 123 H 03/25/19 01:00 115 H 115 H 29 H 128/93 03/25/19 00:00 36.8 C 120 H 120 H 29 H 144/94 H 03/24/19 23:38 128 H 133/97 03/24/19 23:25 132 H 31 H 03/24/19 23:00 117 H 117 H 30 H 133/97 03/24/19 22:00 118 H 118 H 33 H 141/98 H 03/24/19 21:00 115 H 115 H 30 H 154/92 H 03/24/19 20:23 118 H 03/24/19 20:22 118 H 03/24/19 20:00 124 H 124 H 30 H 132/94 BP Pulse Ox 03/25/19 07:34 03/25/19 07:28 93 03/25/19 06:15 95 03/25/19 06:00 181/79 H 94 03/25/19 05:00 168/70 H 99 03/25/19 04:00 170/80 H 95 03/25/19 03:43 98 03/25/19 03:00 145/92 H 96 03/25/19 02:00 127/93 92 03/25/19 01:59 03/25/19 01:00 128/93 95 03/25/19 00:00 144/94 H 94 03/24/19 23:38 03/24/19 23:25 93 03/24/19 23:00 133/97 94 03/24/19 22:00 141/98 H 92 03/24/19 21:00 154/92 H 92 03/24/19 20:23 03/24/19 20:22 03/24/19 20:00 132/94 90 Laboratory Results 03/25/19 02:01 03/25/19 02:01 Diagnostic Findings Chest x-ray from today independently reviewed. There are persistent airspace opacities noted throughout the right lung field. Mild cardiomegaly. Aeration is slightly better. PG Care Time/CCT Total # of Minutes Spent Total Time Spent with Patient: Total time spent is greater than 50% in coordination of care (as documented) at patient's floor/unit and/or counseling patient: (1) Traumatic hematoma of abdominal wall with infection Encounter type: subsequent encounter Qualified Code(s): S30.1XXD - Contusion of abdominal wall, subsequent encounter; L08.9 - Local infection of the skin and subcutaneous tissue, unspecified (2) GERD (gastroesophageal reflux disease) Esophagitis presence: esophagitis presence not specified Qualified Code(s): K21.9 - Gastro-esophageal reflux disease without esophagitis (3) CAD (coronary artery disease) Coronary Disease-Associated Artery/Lesion type: [place] artery [place] vs. transplanted heart: [place] heart Associated angina: without angina Qualified Code(s): I25.10 - Atherosclerotic heart disease of [place] coronary artery without angina pectoris
[2019-03-25] MEDS: FUROSEMIDE 40 MG in SYRINGE 0 ML IV SCH ×2 (08:23→15:58)
[2019-03-25] MEDS ORDERED: HydrALAZINE HCL 20 MG/ML VIAL IV PRN (09:02)
[2019-03-25] MEDS ORDERED: HydrALAZINE HCL 20 MG/ML VIAL ONE (09:05)
[2019-03-25] MEDS: HEPARIN SOD 5,000 UNIT/0.5 ML VIAL SQ SCH ×2 (09:09→20:43)
[2019-03-25] MEDS: NYSTATIN POWDER 15GM BTL EXT SCH ×3 (09:09→20:44)
[2019-03-25] MEDS: FAMOTIDINE 20 MG in SYRINGE 3 ML IV SCH (09:10)
[2019-03-25] MEDS: ESMOLOL / NSS 2,500 MG/250 ML BAG IV SCH (09:15)
--- NOTE | 2019-03-25 09:17 | Cardiology Progress Note ---
Date of Service March 25, 2019 Assessment & Plan (1) Acute respiratory failure with hypoxia: Etiology is multifactorial likely includes a degree of volume overload and a possible infectious causes. She continues to diurese, better while she is in sinus rhythm. Overall respiratory status appears to be improving. (2) Acute on chronic diastolic CHF (congestive heart failure): The patient continues on intravenous furosemide 40 mg every 8 hrs. Renal function and electrolytes are stable. (3) PAF (paroxysmal atrial fibrillation): She had a recurrence of atrial fibrillation yesterday lasting several emily rs. Her ventricular rates were slightly elevated during that time. Eventually she converted back to normal sinus rhythm. Ideally, she would be on some amiodarone orally but we are waiting the results of a swallow study today. I think she passes a swallow study 200 milligrams of amiodarone twice daily would be a reasonable starting dose. I would also consider restarting her metoprolol at that time. However, given the initiation of amiodarone we could consider reducing her oral dose to 50 milligrams of metoprolol succinate daily. (4) CAD (coronary artery disease): Nonobstructive coronary artery disease identified on cardiac catheterization in May 2009. (5) HTN (hypertension): Blood pressures been slightly higher lately. Hopefully with reinstitution of oral therapy will see some improvement. Subjective This morning the patient claims to be feeling better. She states that her breathing is improved. She has slightly more energy. She is hungry and anxious to get out of bed to a chair. Review of Systems Review of Systems: Per HPI Physical Exam Physical Exam: She is alert and oriented x3. Mood affect appear normal. She answered all questions appropriately. HEENT: Sclerae are anicteric. Pupils are equal and reactive to light and accommodation. Extraocular movements were intact. Neuro: Cranial nerves intact Lungs: APCs were clear. There was some expiratory wheezing. Respiratory effort was slightly increased. respiratory effort without use of accessory muscles. There is normal pulmonary excursion. Cardiac: The rhythm was regular. S1 and S2 were normal. There are no murmurs on examination. The PMI was not markedly displaced on palpation. Abdomen: Wound VAC in place. Extremities: Patient has bilateral radial pulses that are equal in intensity. Skin: There are no rashes noted on examination today. Results & Data Vital Signs (Past 12 Hours) Vital Signs Temp Pulse Pulse Pulse Resp BP BP 03/25/19 08:21 64 03/25/19 08:00 66 23 182/73 H 03/25/19 07:34 64 03/25/19 07:28 63 22 03/25/19 07:13 63 16 153/90 H 03/25/19 06:15 61 21 03/25/19 06:00 59 L 59 L 23 181/79 H 03/25/19 05:00 62 62 23 168/70 H 03/25/19 04:00 36.9 C 68 68 26 H 170/80 H 03/25/19 03:43 66 66 21 03/25/19 03:00 66 66 26 H 145/92 H 03/25/19 02:00 67 67 28 H 127/93 03/25/19 01:59 123 H 03/25/19 01:00 115 H 115 H 29 H 128/93 03/25/19 00:00 36.8 C 120 H 120 H 29 H 144/94 H 03/24/19 23:38 128 H 133/97 03/24/19 23:25 132 H 31 H 03/24/19 23:00 117 H 117 H 30 H 133/97 03/24/19 22:00 118 H 118 H 33 H 141/98 H BP Pulse Ox 03/25/19 08:21 03/25/19 08:00 94 03/25/19 07:34 03/25/19 07:28 93 03/25/19 07:13 80 L 03/25/19 06:15 95 03/25/19 06:00 181/79 H 94 03/25/19 05:00 168/70 H 99 03/25/19 04:00 170/80 H 95 03/25/19 03:43 98 03/25/19 03:00 145/92 H 96 03/25/19 02:00 127/93 92 03/25/19 01:59 03/25/19 01:00 128/93 95 03/25/19 00:00 144/94 H 94 03/24/19 23:38 03/24/19 23:25 93 03/24/19 23:00 133/97 94 03/24/19 22:00 141/98 H 92 Laboratory Results Abnormal Lab Results 03/24/19 03/24/19 03/24/19 12:04 16:30 17:51 WBC RBC Hgb Hct MCV MCH MCHC RDW Std Deviation RDW Coeff of Elliot Plt Count MPV Immature Gran % (Auto) Neut % (Auto) Lymph % (Auto) Carver % (Auto) Eos % (Auto) Baso % (Auto) Immature Gran # (Auto) Neut # (Auto) Lymph # (Auto) Carver # (Auto) Eos # (Auto) Baso # (Auto) Sodium Potassium Chloride Carbon Dioxide Anion Gap BUN Creatinine Est Cr Clr Drug Dosing Est GFR ( Amer) Est GFR (Non-Af Amer) BUN/Creatinine Ratio Glucose POC Glucose 109 H 117 H Calcium Phosphorus Magnesium Random Vancomycin 13.8 03/25/19 03/25/19 03/25/19 00:14 02:01 02:01 WBC 13.82 H RBC 3.63 L Hgb 10.2 L Hct 31.5 L MCV 86.8 MCH 28.1 MCHC 32.4 RDW Std Deviation 53.5 H RDW Coeff of Elliot 16.8 H Plt Count 348 MPV 8.3 Immature Gran % (Auto) 0.4 Neut % (Auto) 88.3 Lymph % (Auto) 4.1 Carver % (Auto) 3.8 Eos % (Auto) 3.3 Baso % (Auto) 0.1 Immature Gran # (Auto) 0.06 H Neut # (Auto) 12.20 H Lymph # (Auto) 0.57 L Carver # (Auto) 0.52 Eos # (Auto) 0.46 Baso # (Auto) 0.01 Sodium 142 141 Potassium 3.4 L 3.3 L Chloride 104 104 Carbon Dioxide 29 31 Anion Gap 8.0 6.0 BUN 32 H 32 H Creatinine 0.84 0.85 Est Cr Clr Drug Dosing 43.5 43.0 Est GFR ( Amer) 72.4 71.4 Est GFR (Non-Af Amer) 62.5 61.6 BUN/Creatinine Ratio 38.8 H 37.4 H Glucose 103 H 103 H POC Glucose Calcium 9.1 8.9 Phosphorus 3.0 Magnesium 2.3 Random Vancomycin PG Care Time/CCT Total # of Minutes Spent Total Time Spent with Patient: Total time spent is greater than 50% in coordination of care (as documented) at patient's floor/unit and/or counseling patient: (1) CAD (coronary artery disease) Coronary Disease-Associated Artery/Lesion type: [place] artery [place] vs. transplanted heart: [place] heart Associated angina: without angina Qualified Code(s): I25.10 - Atherosclerotic heart disease of [place] coronary artery without angina pectoris (2) HTN (hypertension) Hypertension type: essential hypertension Qualified Code(s): I10 - Essential (primary) hypertension
[2019-03-25] MEDS: CLOPIDOGREL BISULFATE 75 MG TAB PO SCH (10:31)
[2019-03-25] MEDS: DOCUSATE SODIUM 100 MG CAP PO SCH ×2 (10:33→20:47)
[2019-03-25] MEDS: MAGNESIUM OXIDE 400 MG TAB PO SCH ×2 (10:46→20:47)
[2019-03-25] MEDS: POTASSIUM CHLORIDE 10 MEQ TABCR PO SCH (10:46)
[2019-03-25] MEDS: FERROUS SULFATE 325 MG TAB PO SCH ×2 (10:47→16:38)
[2019-03-25] MEDS: SACCHAROMYCES BOULARDII 250 MG CAP PO SCH (10:47)
[2019-03-25] MEDS: CHOLECALCIFEROL 1,000 UNITS TAB PO SCH (10:48)
[2019-03-25] MEDS: FLUOXETINE HCL 10 MG CAP PO SCH (10:48)
[2019-03-25] MEDS: CALCIUM CARBONATE 1250MG TAB PO SCH ×2 (10:48→20:41)
[2019-03-25] MEDS: FLUTICASONE/VILANTEROL INHALER INH SCH (11:24)
[2019-03-25] MEDS: METOPROLOL TARTRATE 50 MG TAB PO SCH ×2 (11:46→20:42)
[2019-03-25] MEDS: AMIODARONE 200 MG TAB PO SCH (11:47)
--- NOTE | 2019-03-25 12:40 | Hospitalist Progress Note ---
Date of Service March 25, 2019 Assessment & Plan (1) Acute on chronic diastolic CHF (congestive heart failure): Echo 02/12/19 with preserved EF - acute on chronic diastolic heart failure Possible etiologies for her decompensated diastolic CHF -- uncontrolled a.fib, lack of diuretic (was on HCTZ when she left [facility]; it was apparently d/c while at rehab), dietary issues, etc. No evidence of ischemia. Symptoms gradually worsened over 1-2 weeks. Hydrochlorothiazide was stopped at discharge from [facility] Patient converted to SR from Afib RVR 03/21 while on amiodarone gtt and beta- blockers per cardiology, now back in SR Continue aggressive diuresis as above Cardiology consulted Before And After School Daycare Worker consulted (2) Acute respiratory failure with hypoxia: Patient required transfer to ICU 03/22 for hypoxic respiratory failure and chest pain. Placed on bipap and nitro gtt. Nitro gtt now discontinued, patient placed on HiFlo 03/24 Acute on chronic diastolic heart failure associated with cessation of diuretic therapy as an outpatient and A.fib Continue to doubt pulmonary toxicity from amiodarone - this was initiated on 02/27/19 Asthma/COPD exacerbation could also be contributing Continue Vanc and Imipenem Aggressive diuresis with furosemide, Diuril Before And After School Daycare Worker consulted (3) PAF (paroxysmal atrial fibrillation): Changed oral amiodarone to amiodarone drip per cardiology recommendation 03/21, metoprolol increased to help rate control - she has been going in and out of SR and Afib RVR since initiation of amiodarone - now in SR - cardiology plans to change her to oral amiodarone today During prior hospital stay she was significantly anemic due to bleeding from her intra-abdominal hematoma; thus anticoagulation was deferred. Her blood count has been stable for nearly a week. CHADS-VASc is 7 putting her at 11.2% risk for stroke. Did discuss risks and benefits of anticoagulation with her family. Will defer initiation of anticoagulation to watershed engineer while she remains critically ill. (4) Pneumonia: Procalcitonin to 1.9 Continue Premaxin and Vanco BC negative ID onboard (5) Chronic kidney disease, stage 3a: Cr stable will follow with increased diuresis (6) Hypothyroidism: continue Synthroid (7) Hyperlipidemia: continue statin (8) Asthma: IV steroids now dc'd, continue scheduled nebs BIPAP transitioned to HiFlo (9) CAD (coronary artery disease): Troponin was negative; she has no symptoms even with rapid ventricular rate Nonobstructive coronary artery disease identified on a cardiac catheterization in May 2009. (10) HTN (hypertension): continue Metoprolol, no longer requiring nicardipine gtt (11) Obstructive sleep apnea, adult: CPAP HS (12) Traumatic hematoma of abdominal wall with infection: Had spontaneous rupture of large intra-abdominal hematoma in February during her prolonged stay. The hematoma was due to a prior fall. Following rupture Dr Pablo performed I/D in the OR. Cultures showed e.coli. She has been on augmentin since and was meant to continue with prolonged course The abdominal wound is getting smaller with use of Wound Vac. It is changed M/W/F. Wound care clinic follows this. Will consult the wound care nurse. ID consulted (13) Anemia: Has received 2 units of blood cells this admission Previous work-up showed the anemia was likely due to bleeding from the intra- abdominal hematoma and also anemia of chronic disease. Continue ferrous sulfate. Patient did not have any melena or obvious blood loss source of her hemoglobin - hgb has been stable for multiple days (14) Transient ischemic attack: Had TIA during prior admission. Also with h/o CVA many years ago. On Plavix for secondary prevention - resumed now that she is on HiFlo Ideally should be on anticoagulation because of PAF but this has been deferred -- see discussion above. (15) DVT prophylaxis: (15) DVT prophylaxis: dvt prophylaxis heparin bid, SCDs Palliative care consulted for goals of care - patient agrees to intubation if absolutely necessary, would not want prolonged mechanical ventilation, would like her daughter to make medical decisions for her if she is unable. Subjective Ms. Parra continues to improve. She was up to a chair for a number of hours this morning. She is tolerating the HiFlo. She has been in SR overnight Review of Systems Review of Systems: All systems reviewed & are unremarkable except as noted in HPI & below Physical Exam Physical Exam: General: no distress Eyes: normal inspection, PERLL Respiratory: chest non tender, clear to auscultation, normal breath sounds, no respiratory distress, no accessory muscle use Cardiac: regular rate and rhythm, no rub or gallop, no murmur, no edema, no jvd GI/: active bowel sounds, no abd pain or tenderness, soft, non distended Extremities: normal range of motion, normal strength, non tender Neuro/Psych: alert and oriented x 3, normal mood and affect Skin: normal color, dry Results & Data Vital Signs (Past 12 Hours) Vital Signs Temp Pulse Pulse Pulse Resp BP BP 03/25/19 11:12 68 69 26 H 03/25/19 09:33 64 27 H 164/91 H 03/25/19 09:00 66 29 H 181/105 H 03/25/19 08:21 64 03/25/19 08:00 66 23 182/73 H 03/25/19 07:34 64 03/25/19 07:28 63 22 03/25/19 07:13 63 16 153/90 H 03/25/19 06:15 61 21 03/25/19 06:00 59 L 59 L 23 181/79 H 03/25/19 05:00 62 62 23 168/70 H 03/25/19 04:00 36.9 C 68 68 26 H 170/80 H 03/25/19 03:43 66 66 21 03/25/19 03:00 66 66 26 H 145/92 H 03/25/19 02:00 67 67 28 H 127/93 03/25/19 01:59 123 H 03/25/19 01:00 115 H 115 H 29 H 128/93 BP Pulse Ox 03/25/19 11:12 93 03/25/19 09:33 90 03/25/19 09:00 87 L 03/25/19 08:21 03/25/19 08:00 94 03/25/19 07:34 03/25/19 07:28 93 03/25/19 07:13 80 L 03/25/19 06:15 95 03/25/19 06:00 181/79 H 94 03/25/19 05:00 168/70 H 99 03/25/19 04:00 170/80 H 95 03/25/19 03:43 98 03/25/19 03:00 145/92 H 96 03/25/19 02:00 127/93 92 03/25/19 01:59 03/25/19 01:00 128/93 95 PG Care Time/CCT Total # of Minutes Spent Total Time Spent with Patient: Total time spent is greater than 50% in coordination of care (as documented) at patient's floor/unit and/or counseling patient: (1) Pneumonia Laterality: right Lung location: lower lobe of lung Pneumonia type: due to unspecified organism Qualified Code(s): J18.1 - Lobar pneumonia, unspecified organism (2) Hypothyroidism Hypothyroidism type: acquired Qualified Code(s): E03.9 - Hypothyroidism, unspecified (3) Hyperlipidemia Hyperlipidemia type: mixed hyperlipidemia Qualified Code(s): E78.2 - Mixed hyperlipidemia (4) Asthma Asthma severity: unspecified severity Asthma persistence: unspecified Asthma complication type: uncomplicated Qualified Code(s): J45.909 - Unspecified asthma, uncomplicated (5) CAD (coronary artery disease) Coronary Disease-Associated Artery/Lesion type: [place] artery [place] vs. transplanted heart: [place] heart Associated angina: without angina Qualified Code(s): I25.10 - Atherosclerotic heart disease of [place] coronary artery without angina pectoris (6) HTN (hypertension) Hypertension type: essential hypertension Qualified Code(s): I10 - Essential (primary) hypertension (7) Traumatic hematoma of abdominal wall with infection Encounter type: subsequent encounter Qualified Code(s): S30.1XXD - Contusion of abdominal wall, subsequent encounter; L08.9 - Local infection of the skin and subcutaneous tissue, unspecified (8) Anemia Anemia type: unspecified type Qualified Code(s): D64.9 - Anemia, unspecified
--- NOTE | 2019-03-25 15:23 | Pharmacy Report ---
Pharmacy Glycemic Short Note 2 - Date of Service March 25, 2019 - Glycemic Short BSG Results (Last 24 hours): 03/24/19 03/25/19 03/25/19 17:51 00:14 02:01 Glucose 103 H 103 H POC Glucose 117 H 03/25/19 11:26 Glucose POC Glucose 94 OUTPATIENT ANTIDIABETIC REGIMEN: * none ASSESSMENT: 03/25/19 * Patient has required 0 units of insulin the past 3 days, will stop accuchecks as patient's fingers are frail and hurting, will continue to monitor patient by ICU pharmacist and watch blood glucose levels in daily PRPs 03/22/19 * Patient initiated on an insulin drip overnight per ICU protocol given BSG 225mg/dL. As patient does not have a history of diabetes and does not take any agents as an outpatient, this was likely a stress response in combination with high dose IV steroids. As BSGs remained steady this morning and insulin infusion was < 2 units/hr consistently and IV steroids were discontinued, it was decided at multidisciplinary rounds to stop the insulin infusion and continue on only a novolog sliding scale. Lunch BSG did increase but remained acceptable and may still be influenced by last dose of solumedrol at 0800. Will reassess need for basal prandial coverage as needed. PLAN FOR INPATIENT GLYCEMIC CONTROL: * Basal insulin * none * Bolus insulin - DISCONTINUE * NovoLog per scale ACHS or Q6hrs while NPO * Goal Range: Low 120 mg/dL - High 160 mg/dL * Correction Factor: 35 mg/dL/unit
[2019-03-25] MEDS: VANCOMYCIN HCL 1,250 MG in SODIUM CHLORIDE 0.9% 250 ML IV SCH (17:36)
[2019-03-25] MEDS: LEVOTHYROXINE SODIUM 25 MCG TABLET PO SCH (20:40)
[2019-03-25] MEDS: ATORVASTATIN 20 MG TAB PO SCH (20:40)
[2019-03-25] MEDS: FLUOXETINE HCL 20 MG CAP PO SCH (20:41)
[2019-03-25] MEDS: MULTIVITAMIN TAB PO SCH (20:44)
[2019-03-26] MEDS: FUROSEMIDE 40 MG in SYRINGE 0 ML IV SCH ×3 (00:05→15:54)
[2019-03-26] MEDS: IMIPENEM/CILASTATIN SODIUM 300 MG in DEXTROSE 5% 100 ML IV SCH ×4 (04:09→22:28)
[2019-03-26] MEDS: ALBUT/IPRATROP 3MG/0.5MG NEB 3 ML VIAL NEB SCH ×6 (04:15→23:17)
[2019-03-26 05:14] LABS: BUN Creatinine Ratio 39.5 (10-20); Creatinine Clr Calc Pharmacy 46.3 ml/min; Est GFR (Non-African American) 67.3; Magnesium 2.1 mg/dl (1.8-2.4); Potassium 2.9 mmol/L (3.5-5.1)
[2019-03-26 05:39] LABS: Phosphorus 2.4 mg/dl (2.5-4.9)
[2019-03-26] MEDS ORDERED: POTASSIUM CHLORIDE 20 MEQ TABCR PO STA ×2 (05:41→11:24)
[2019-03-26] MEDS: POTASSIUM CHLORIDE / WTR 10 MEQ/100 ML PLCT IV SCH ×3 (05:55→11:17)
[2019-03-26] MEDS: ONDANSETRON INJ 2 MG/ML 2 ML VIAL IV PRN (06:18)
[2019-03-26] MEDS: BUDESONIDE 0.5 MG/2 ML VIAL (PULMICORT) NEB SCH (07:06)
--- NOTE | 2019-03-26 07:10 | XRay Report ---
XR chest 1V portable CLINICAL HISTORY: Abnormal chest x-ray. SHORTNESS OF BREATH COMPARISON STUDY: 03/25/2019 FINDINGS: The heart remains enlarged. There are bilateral asymmetric airspace opacities right greater than left. Small pleural effusions are suspected. Diagnostic considerations remain asymmetric pulmon romeo edema versus a multifocal pneumonia.[ IMPRESSION: Stable findings. Persistent cardiomegaly, small bilateral pleural effusions, and bilatera l pulmonary airspace opacities. Electronically signed by: Rosalio Childs M.D. 03/26/2019 7:08 AM
--- NOTE | 2019-03-26 07:13 | Critical Care Progress Note ---
Date of Service March 26, 2019 Assessment & Plan (1) Admitted to intensive care unit: (1) Acute on chronic diastolic CHF (congestive heart failure): Reason Critically Ill: 88-year-old female with recent hospitalization for abdominal wound presents with ongoing and worsening hypoxic respiratory failure. Neuro - [facility] ICU: Negative Cardiac - Diastolic CHFlast echo showed EF 50 to 55% with septal wall motion abnormality -Likely source of dyspnea considering patient began to display symptoms after thiazide diuretic discontinued for ROXANNA -We will continue with aggressive diuresis, see respiratory failure below CADrecent cath showed stable cardiac disease -Continue Lipitor and Plavix PAFpatient had episode of A. fib RVR on this admission and was converted to IV amnio, converted to sinus rhythm with no further incidents -IV amnio discontinued at this time, continue oral amiodarone and metoprolol therapy -Continue monitoring on telemetry -will need anticoagulation for PAF once clinically stable HTNcontinue MTP, hydralazine Respiratory - Hypoxic respiratory failurechest x-ray showed significant pulmonary edema versus bilateral infiltrates with small bilateral pleural effusions, x-ray from this a.m. stable -Patient weaned from CPAP to HF NC now on 5 L nasal cannula, maintaining sats -amio toxicity less likely as patient has only been on amiodarone since 02/27 -Continuing Primaxin for possible infectious process -Cannot rule out possible reaction from blood product as patient received 2 units RBCs Tuesday, however plan would not change from supportive therapy -Continue aggressive Lasix and Diuril therapy -Continuous monitoring with pulse ox and wean oxygen support as indicated with saturation goal 88 % GI - Abdominal woundabdominal wound appears to be well-healing with negative pressure dressing and antibiotic therapy last cultures grew E. coli, was treated with Augmentin outpatient now converted to Zosyn inpatient; antibiotics switched to Vanco and Primaxin considering possible development of pulmonary source of infection while on Zosyn; thank now DC'd and only on Primaxin - ID and wound care following GERDPPI RENAL/LYTES - AKIdeveloped on previous admission and has improved -Creatinine stable at this time and will continue diuresis with Lasix -Continue to monitor with routine BMPs HypokalemiaIV diuretics likely contributing, continue scheduled potassium infusions -We will drawl regular BMPs and attempt to maintain potassium goal greater than 4.0 - Indwelling Marie catheter, strict I's and O's ENDO - Hyperglycemiainsulin drip remains off and patient remains euglycemic; was likely related to stress versus IV steroids -Continue ICU hyperglycemic protocol Hypothyroidismcontinue Synthroid HEME - Anemiawas found to be anemic on admission with hemoglobin less than 8, was transfused with 2 units RBCs considering respiratory failure -H&H has been stable since, will continue to trend -We will continue ferrous sulfate ID - Blood cultures negative to date ID consulted, will follow up recs MRSA PCR negative, vancomycin DC'd this a.m. Zosyn switched to Primaxin as patient may have developed pulmonary source while on Zosyn LINES/IV ACCESS - Peripheral IVs, Marie DVT PROPHYLAXIS - SCDs, heparin Thank you for allowing us to participate in the care of this patient. Please refer to my attending physician's documentation for any further recommendations. (2) Traumatic hematoma of abdominal wall with infection: (3) Pneumonia: (4) COPD (chronic obstructive pulmonary disease): (5) CHF (congestive heart failure): (6) Acute respiratory failure with hypoxia: (7) DVT prophylaxis: (8) PAF (paroxysmal atrial fibrillation): Supervising Physician Co-Signing Physician Notes Patient seen and examined. Imaging studies independently reviewed and EMR reviewed. Discussed with patient family at bedside. Agree with assessment and SCHOOL COMMUNITY RELATIONS COORDINATOR note as noted with following adjustments. The patient continues to require high flow oxygen but is doing well on a heated high flow nasal cannula. She used CPAP at her home settings last night. Her cough is increasingly productive. She is intermittently up to the chair but it is significantly debilitated. Her white count remained stable. She is remained in normal sinus rhythm over metoprolol and amiodarone orally. Continue to wean oxygen as tolerated. Continue antiarrhythmics. Complete course of antibiotics for possible healthcare associated pneumonia. If her oxygen requirement remains stable to improved, she can likely transfer to the floor under the care of the hospitalist. Subjective This morning patient has improved and is weaned to 5 L nasal cannula oxygen supplementation. She appears comfortable sitting upright in chair. Patient is now working with PT and OT. She denies shortness of breath, increased work of breathing, chest pain, palpitations, syncopal episodes, abdominal pain, nausea vomiting, or diarrhea. She has no complaints at this time. We will continue diuresis and hold in ICU for now. Review of Systems Review of Systems: All systems reviewed & are unremarkable except as noted in HPI & below Physical Exam Eyes: PERRL, conjunctivae normal, anicteric sclerae ENMT: external ear and nose normal, oropharynx normal Neck: trachea midline, no thyromegaly Respiratory: Coarse crackles in all [place] bilaterally with diminished lungs sounds in bases, symmetrical chest wall movement Cardiovascular: RRR, no murmur, no edema Heart Sounds: normal S1 and normal S2; no murmur Vessels: no JVD Gastrointestinal (Abdomen): normal bowel sounds, soft, nontender, no hepatosplenomegaly Left lower quadrant abdominal wound covered with negative pressure dressing to wound VAC Skin: no rashes, warm and dry Neurologic: PERRL, EOMI, accommodation nl, no face palsy, no dysarthria Psychiatric: A+Ox3, euthymic affect Results & Data Vital Signs (Past 12 Hours) Vital Signs Temp Pulse Pulse Resp BP Pulse Ox 03/26/19 07:10 61 20 91 03/26/19 07:08 61 20 91 03/26/19 06:23 65 20 94 03/26/19 06:00 36.4 C L 68 29 H 127/58 L 95 03/26/19 05:20 63 28 H 136/76 97 03/26/19 05:00 63 26 H 175/68 H 98 03/26/19 04:19 64 20 95 03/26/19 04:00 55 L 27 H 156/65 H 96 03/26/19 03:00 56 L 29 H 142/65 H 95 03/26/19 02:24 59 L 21 94 03/26/19 02:00 58 L 31 H 141/64 H 94 03/26/19 01:01 61 31 H 131/59 L 92 03/26/19 00:20 58 L 30 H 92 03/25/19 23:45 62 91 03/25/19 23:42 63 19 118/53 L 90 03/25/19 23:01 55 L 29 H 161/64 H 97 03/25/19 22:47 57 L 30 H 91 03/25/19 22:00 36.8 C 58 L 24 159/65 H 93 03/25/19 21:00 61 23 132/71 91 03/25/19 20:00 36.8 C 59 L 26 H 140/87 89 L PG Care Time/CCT Total # of Minutes Spent Total Time Spent with Patient: Total time spent is greater than 50% in coordination of care (as documented) at patient's floor/unit and/or counseling patient: (1) Traumatic hematoma of abdominal wall with infection Encounter type: subsequent encounter Qualified Code(s): S30.1XXD - Contusion of abdominal wall, subsequent encounter; L08.9 - Local infection of the skin and subcutaneous tissue, unspecified (2) CHF (congestive heart failure) Heart failure chronicity: acute Heart failure type: unspecified Qualified Code(s): I50.9 - Heart failure, unspecified (3) COPD (chronic obstructive pulmonary disease) COPD type: COPD with acute exacerbation Qualified Code(s): J44.1 - Chronic obstructive pulmonary disease with (acute) exacerbation (4) Pneumonia Laterality: right Lung location: lower lobe of lung Pneumonia type: due to unspecified organism Qualified Code(s): J18.1 - Lobar pneumonia, unspecified organism
[2019-03-26] MEDS: MAGNESIUM OXIDE 400 MG TAB PO SCH ×2 (09:19→20:36)
[2019-03-26] MEDS: CLOPIDOGREL BISULFATE 75 MG TAB PO SCH (09:19)
[2019-03-26] MEDS: CHOLECALCIFEROL 1,000 UNITS TAB PO SCH (09:19)
[2019-03-26] MEDS: FLUOXETINE HCL 10 MG CAP PO SCH (09:19)
[2019-03-26] MEDS: CALCIUM CARBONATE 1250MG TAB PO SCH ×2 (09:19→20:37)
[2019-03-26] MEDS: DOCUSATE SODIUM 100 MG CAP PO SCH ×2 (09:19→20:33)
[2019-03-26] MEDS: SACCHAROMYCES BOULARDII 250 MG CAP PO SCH (09:19)
[2019-03-26] MEDS: HEPARIN SOD 5,000 UNIT/0.5 ML VIAL SQ SCH ×2 (09:20→20:33)
[2019-03-26] MEDS: METOPROLOL TARTRATE 50 MG TAB PO SCH ×2 (09:20→20:34)
[2019-03-26] MEDS: FERROUS SULFATE 325 MG TAB PO SCH ×2 (09:20→17:00)
[2019-03-26] MEDS: AMIODARONE 200 MG TAB PO SCH (09:20)
[2019-03-26] MEDS: NYSTATIN POWDER 15GM BTL EXT SCH ×3 (09:21→20:38)
[2019-03-26] MEDS: FLUTICASONE/VILANTEROL INHALER INH SCH (09:21)
[2019-03-26] MEDS: POTASSIUM CHLORIDE 10 MEQ TABCR PO SCH (11:17)
[2019-03-26] MEDS: PANTOprazole 40 MG TAB PO SCH (11:24)
--- NOTE | 2019-03-26 14:16 | Palliative Care Progress Note ---
Date of Service March 26, 2019 Assessment & Plan (1) Goals of care, counseling/discussion: Goals of care, counseling/discussion: Patient is an 88-year-old female with a past medical history significant for newly diagnosed paroxysmal A. fib, diastolic heart failure, COPD, recent abdo neo wall hematoma, CKD stage III, history of TIA/CVA 17, MADELINE, hypothyroid, CAD, hypertension and depression who was hospitalized here at [facility] from February 07 to March 02 for an abdominal wall hematoma that spontaneously ruptured- patient was on a wound VAC for over a month with good healing. After this hospitalization patient spent [facility] and was recently discharged on 03/15. Patient had done well in rehab. Patient had a choking episode on 03/16 and continue to have worsening shortness of breath over the next couple days. On 03/18 patient was having severe shortness of breath and was brought to the emergency room. In the emergency room chest x-ray showed cardiomegaly with edema, white count was 16.69 with a hemoglobin of 8.8. Patient was admitted and diuresed-her hemoglobin dropped to 7.5 and she was transfused. Hemoglobin has been stable at 10.1. Patient has required aggressive diuresis-she continued to have shortness of breath and required BiPAP and is currently in the ICU. Patient's respiratory status is improving with aggressive diuresis-she is now on high flow nasal cannula at 6 L. Patient awake alert and oriented-able to participate in conversation. Patient named her daughter, Gaby as medical decision-maker. Patient's also at bedside. Patient lives with her who is in fairly good health-has slight memory issues. CODE STATUS-full code, she would not want prolonged intubation or be maintained on life support for an indefinite period of time. Patient's daughter is aware of patient's wishes-has had discussions in the past regarding her living will. Patient had 4 children-the eldest approximately 20 years ago. Her daughter Gaby, is the oldest of the 3 siblings. Patient has another daughter and son- all 3 children live in the [place] area. Patient was never a smoker, however was exposed to secondhand smoke from age [age]. Patient did have asthma as a child. -CODE STATUS-patient wishes to remain a full code, would want to avoid intubation for as long as possible as she does not wish to be sedated and not be able to communicate -Paroxysmal A. fib-this is a relatively new diagnosis-patient was on amiodarone and metoprolol and had an episode of A. fib while on amiodarone-patient converted on Cardizem -now back on amiodarone and metoprolol. Patient is on Plavix for AC -Diastolic CHF-patient is being aggressively diuresed, patient's renal function is remaining steady and tolerating diuresis with Lasix every 8 hours. Respiratory status improving with aggressive diuresis -Acute respiratory failure with hypoxia-underlying COPD as well as diastolic heart failure and possible pneumonia contributing-patient slowly improving, weaning O2 as tolerated -COPD-continue respiratory support, diuresis, as well as budesonide and albuterol. Patient on Primaxin and Vanco for possible pneumonia -Abdominal wall abscess-wound VAC in place, wound healing well. -Depression-has been doing well on current dose of Prozac -Hypothyroid-on Synthroid Will continue to follow and assist patient and family with medical decision making as needed. (2) PAF (paroxysmal atrial fibrillation): (3) Acute on chronic diastolic CHF (congestive heart failure): (4) Acute respiratory failure with hypoxia: (5) COPD (chronic obstructive pulmonary disease): COPD type: COPD with acute exacerbation Qualified Code(s): J44.1 - Chronic obstructive pulmonary disease with (acute) exacerbation (6) Abscess of abdominal wall: (2) Acute on chronic diastolic CHF (congestive heart failure): (3) Acute respiratory failure with hypoxia: (4) COPD (chronic obstructive pulmonary disease): (5) Abscess of abdominal wall: (6) PAF (paroxysmal atrial fibrillation): Subjective Patient seen and examined in the ICU this afternoon-patient's and daughter at bedside Patient's respiratory status improving-she was weaned from BiPAP to high flow nasal cannula-now on 6 L, chest x-ray improving Patient awake, alert, does complain of fatigue. Review of Systems Review of Systems: Patient denies fever, chills, increased shortness of breath, chest pain or abdominal pain Physical Exam Physical Exam: PE: Awake alert, no acute distress HEENT: EOMI, hearing within normal limits Respirations: Coarse breath sounds bilaterally CV: Regular rate Abdomen: Not distended Extremities: No edema Neuro: Alert and oriented x4 Results & Data Vital Signs (Past 12 Hours) Vital Signs Temp Pulse Pulse Resp BP Pulse Ox 03/26/19 11:10 58 L 20 90 03/26/19 07:10 61 20 91 03/26/19 07:08 61 20 91 03/26/19 06:23 65 20 94 03/26/19 06:00 97.5 F L 68 29 H 127/58 L 95 03/26/19 05:20 63 28 H 136/76 97 03/26/19 05:00 63 26 H 175/68 H 98 03/26/19 04:19 64 20 95 03/26/19 04:00 55 L 27 H 156/65 H 96 03/26/19 03:00 56 L 29 H 142/65 H 95 03/26/19 02:24 59 L 21 94 PG Care Time/CCT Total # of Minutes Spent Total Time Spent with Patient: Total time spent is greater than 50% in coordination of care (as documented) at patient's floor/unit and/or counseling patient: Time Spent Attending Total time spent 35 minutes with greater than 50% of the time spent at bedside discussing patient's current condition and goals of care with patient and family. (1) COPD (chronic obstructive pulmonary disease) COPD type: COPD with acute exacerbation Qualified Code(s): J44.1 - Chronic obstructive pulmonary disease with (acute) exacerbation
--- NOTE | 2019-03-26 14:59 | Cardiology Progress Note ---
Date of Service March 26, 2019 Assessment & Plan (1) Acute respiratory failure with hypoxia: Improving. Etiology is multifactorial likely includes a degree of volume overload and a possible infectious causes. Management per the ICU team. (2) Acute on chronic diastolic CHF (congestive heart failure): The patient continues on IV furosemide 40 mg every 8 hrs. (3) PAF (paroxysmal atrial fibrillation): Fortunately, she remains in sinus rhythm on amiodarone 200 mg b.i.d.. Family is concerned that she may have amiodarone induced pulmonary toxicity. Had a long discussion with the son the long today. Pulmonary toxicity seems unlikely as her respiratory status is improving while on amiodarone therapy. (4) CAD (coronary artery disease): Nonobstructive coronary artery disease identified on cardiac catheterization in May 2009. (5) HTN (hypertension): Adequate control on current medical regimen. Subjective The patient is resting comfortably in bed without complaints of chest pain or dyspnea. She is tolerating nasal oxygen without difficulty. Physical Exam Physical Exam: In general is well-developed well-nourished white female no acute distress. HEENT exam notes a BiPAP mask in place. Neck is supple with full carotid upstrokes. There are no carotid bruits. No jugular venous distention. There is no thyromegaly. Cardiovascular exam reveals a regular rh ythm with distant heart sounds. No obvious murmurs. Lungs are clear without rales, rhonchi or wheezes. Abdomen notes a wound VAC in place. Extremities reveal intact radial artery pulses bilaterally. Trace pretibial edema. Results & Data Vital Signs (Past 12 Hours) Vital Signs Temp Pulse Pulse Resp BP Pulse Ox 03/26/19 11:10 58 L 20 90 03/26/19 07:10 61 20 91 03/26/19 07:08 61 20 91 03/26/19 06:23 65 20 94 03/26/19 06:00 36.4 C L 68 29 H 127/58 L 95 03/26/19 05:20 63 28 H 136/76 97 03/26/19 05:00 63 26 H 175/68 H 98 03/26/19 04:19 64 20 95 03/26/19 04:00 55 L 27 H 156/65 H 96 03/26/19 03:00 56 L 29 H 142/65 H 95 Diagnostic Findings secured entrance monitor notes sinus rhythm with an occasional PAC. PG Care Time/CCT Total # of Minutes Spent Total Time Spent with Patient: Total time spent is greater than 50% in coordination of care (as documented) at patient's floor/unit and/or counseling patient: (1) CAD (coronary artery disease) Associated angina: without angina Coronary Disease-Associated Artery/Lesion type: [place] artery [place] vs. transplanted heart: [place] heart Qualified Code(s): I25.10 - Atherosclerotic heart disease of [place] coronary artery without angina pectoris (2) HTN (hypertension) Hypertension type: essential hypertension Qualified Code(s): I10 - Essential (primary) hypertension
[2019-03-26] MEDS: NYSTATIN SUSP 500,000 U/5 ML UDC PO SCH ×2 (17:00→20:37)
[2019-03-26] MEDS ORDERED: POTASSIUM CHLORIDE 20 MEQ TABCR PO ONE (17:00)
[2019-03-26] MEDS: ATORVASTATIN 20 MG TAB PO SCH (20:34)
[2019-03-26] MEDS: MULTIVITAMIN TAB PO SCH (20:37)
[2019-03-26] MEDS: FLUOXETINE HCL 20 MG CAP PO SCH (20:38)
[2019-03-26] MEDS: LEVOTHYROXINE SODIUM 25 MCG TABLET PO SCH (20:38)
--- NOTE | 2019-03-26 21:05 | Hospitalist Progress Note ---
Date of Service March 26, 2019 Assessment & Plan (1) Acute respiratory failure with hypoxia: Ongoing. Likely combination of acute diastolic CHF and b/l pneumonia. COPD exacerbation was likely also present earlier this stay - treated previously with steroids. Doubt pulmonary toxicity from amiodarone - this was initiated on 02/27/19 - rather fast for development of such. Continue imipenem to cover for gram negatives/anaerobes. Defer length of antibiotics to critical care (but has been on abx since first day of hospitalization -- we are hospital day #8). Vanco d/c - MRSA swab negative. Continue HFNC (or NC) with night-time CPAP. Continue IV lasix for acute CHF. (2) CHF (congestive heart failure): Acute diastolic. Echo 02/12/19 with preserved EF. Possible etiologies for her decompensated diastolic CHF -- uncontrolled a.fib, lack of diuretic (was on HCTZ when she left [facility]; it was apparently d/c while at rehab), dietary issues, etc. No evidence of ischemia. Net negative 8 liters since admission. Cont IV lasix. Appreciate Dr Horner's recommendations. Cr remains stable. Continue beta david (metoprolol tartrate 50mg BID). Strict I's and O's. Daily weights. (3) Pneumonia: Probable. Bilateral. Has been on IV antibiotics since hospital day #1. Remains on imipenem - covering for gram negatives/hospital-acquired infections. Cont supportive care. Previous blood cx's were negative. (4) Asthma: with possible exacerbation. resolved. off steroids. (5) A-fib: During her previous prolonged hospitalization she had 2 episodes of PAF with one lasting over 24 hours. She may be having runs of PAF outside the hospital. She has had additional PAF runs during this hospital stay. Remains on amiodarone 200mg daily and metoprolol 50mg BID. Appreciate cardiology consultation. (6) CAD (coronary artery disease): History of such. No ischemic symptoms at this time. Cont BB, statin, plavix. (7) Chronic kidney disease, stage 3a: Cr stable today. BMP am. (8) HTN (hypertension): Cont home medications. Stable. (9) Hyperlipidemia: Cont statin. (10) Hypothyroidism: TSH mildly elevated at presentation. Takes synthroid 25mcg daily. Consider repeating TSH later this stay. (11) Obstructive sleep apnea, adult: Cont home CPAP unit at . (12) Traumatic hematoma of abdominal wall with infection: Had spontaneous rupture of large intra-abdominal hematoma in February during her prolonged stay. The hematoma was due to a prior fall. Following rupture Dr Pablo performed I/D in the OR. Cultures showed e.coli. She had been on augmentin at [facility] and at home. The abdominal wound is getting smaller with use of Wound Vac. Would care continues to follow and change dressings M/W/F. (13) Anemia: H/H stable. Cont Ferrous Sulfate 325mg BID. (14) Transient ischemic attack: Had TIA during prior admission. Also with h/o CVA many years ago. On plavix for secondary prevention. Ideally should be on anticoagulation because of PAF but this has been deferred. (15) Acute hypokalemia: aggressive IV/PO replacement today. repeat level tonight was normal. BMP in am. (16) Candidiasis of mouth and esophagus: thrush. nystatin 5cc po ac/hs. (17) DVT prophylaxis: heparin 5000 BID speech assistance appreciated; full liquids ordered by speech appreciate critical care assistance family updated Subjective continues with significant o2 requirement at times but somewhat improved from a few days ago. she has mild mouth soreness. minimal cough. appetite poor. very fatigued and tired. daughter, at bedside. Review of Systems Constitutional: no fever Cardiovascular: no chest pain Gastrointestinal: no abdominal pain, no nausea, no vomiting and no diarrh ea/loose stools Physical Exam Constitutional: + ill appearing and + frail appearing; no altered mental st atus ENMT: Mouth: + oral mucosal abnormality (thrush plaques present buccal mucosa) Respiratory: no respiratory distress Auscultation: + crackles (b/l -- 1/2 way up back); no wheezes Cardiovascular: Rate/Rhythm: regular rate and regular rhythm Heart Sounds: normal S1 and normal S2; no murmur Vessels: posterior tibial pulses present and dorsalis pedis pulses present; no JVD Extremities: no edema Gastrointestinal (Abdomen): Percussion/Palpation: abdomen soft; abdomen nonten abeba and no hepatosplenomegaly Skin: wound vac in place - mid abdominal wall Psychiatric: Orientation: alert and oriented x 3 Results & Data Vital Signs (Past 12 Hours) Vital Signs Temp Pulse Pulse Pulse Resp BP Pulse Ox 03/26/19 18:30 62 27 H 92 03/26/19 18:20 67 28 H 89 L 03/26/19 18:10 62 26 H 93 03/26/19 18:00 62 26 H 138/57 L 95 03/26/19 17:50 64 28 H 93 03/26/19 17:40 69 58 L 29 H 90 03/26/19 17:30 72 26 H 03/26/19 17:20 62 28 H 91 03/26/19 17:10 65 28 H 87 L 03/26/19 17:02 64 29 H 88 L 03/26/19 17:01 36.9 C 65 25 H 143/64 H 86 L 03/26/19 17:00 64 27 H 86 L 03/26/19 16:30 66 26 H 89 L 03/26/19 16:00 61 25 H 165/66 H 91 03/26/19 15:49 60 20 94 03/26/19 15:30 59 L 19 94 03/26/19 15:20 60 69 20 94 03/26/19 15:01 63 29 H 144/58 H 83 L 03/26/19 15:00 63 29 H 83 L 03/26/19 14:57 63 28 H 139/73 81 L 03/26/19 14:30 64 27 H 85 L 03/26/19 14:00 60 28 H 88 L 03/26/19 13:30 65 33 H 82 L 03/26/19 13:23 61 30 H 151/59 H 92 03/26/19 13:00 63 33 H 151/59 H 87 L 03/26/19 12:30 62 26 H 89 L 03/26/19 12:00 72 20 135/61 67 L 03/26/19 11:30 69 28 H 85 L 03/26/19 11:10 58 L 20 90 03/26/19 11:00 63 24 137/56 L 88 L 03/26/19 10:30 65 28 H 90 03/26/19 10:02 68 26 H 135/81 87 L 03/26/19 10:00 66 22 91 03/26/19 09:33 68 22 87 L Laboratory Results Laboratory Results - last 24 hr 03/26/19 04:18 Sodium 140 Potassium 2.9 L Chloride 101 Carbon Dioxide 31 Anion Gap 8.0 BUN 31 H Creatinine 0.79 Est Cr Clr Drug Dosing 46.3 Est GFR ( Amer) 78.0 Est GFR (Non-Af Amer) 67.3 BUN/Creatinine Ratio 39.5 H Glucose 114 H Calcium 9.0 Phosphorus 2.4 L Magnesium 2.1 PG Care Time/CCT Total # of Minutes Spent Total Time Spent with Patient: Total time spent is greater than 50% in coordination of care (as documented) at patient's floor/unit and/or counseling patient: (1) Traumatic hematoma of abdominal wall with infection Encounter type: subsequent encounter Qualified Code(s): S30.1XXD - Contusion of abdominal wall, subsequent encounter; L08.9 - Local infection of the skin and subcutaneous tissue, unspecified (2) CAD (coronary artery disease) Associated angina: without angina Coronary Disease-Associated Artery/Lesion type: [place] artery [place] vs. transplanted heart: [place] heart Qualified Code(s): I25.10 - Atherosclerotic heart disease of [place] coronary artery without angina pectoris (3) CHF (congestive heart failure) Heart failure chronicity: acute Heart failure type: unspecified Qualified Code(s): I50.9 - Heart failure, unspecified (4) Anemia Anemia type: unspecified type Qualified Code(s): D64.9 - Anemia, unspecified (5) A-fib Atrial fibrillation type: unspecified Qualified Code(s): I48.91 - Unspecified atrial fibrillation (6) Hyperlipidemia Hyperlipidemia type: mixed hyperlipidemia Qualified Code(s): E78.2 - Mixed hyperlipidemia (7) Hypothyroidism Hypothyroidism type: acquired Qualified Code(s): E03.9 - Hypothyroidism, unspecified (8) HTN (hypertension) Hypertension type: essential hypertension Qualified Code(s): I10 - Essential (primary) hypertension (9) Pneumonia Laterality: right Lung location: lower lobe of lung Pneumonia type: due to unspecified organism Qualified Code(s): J18.1 - Lobar pneumonia, unspecified organism (10) Asthma Asthma complication type: uncomplicated Asthma persistence: unspecified Asthma severity: unspecified severity Qualified Code(s): J45.909 - Unspecified asthma, uncomplicated
[2019-03-27] MEDS: FUROSEMIDE 40 MG in SYRINGE 0 ML IV SCH ×4 (00:06→23:16)
[2019-03-27] MEDS: ALBUT/IPRATROP 3MG/0.5MG NEB 3 ML VIAL NEB SCH ×2 (04:02→07:20)
[2019-03-27] MEDS: IMIPENEM/CILASTATIN SODIUM 300 MG in DEXTROSE 5% 100 ML IV SCH ×4 (04:32→21:43)
[2019-03-27 04:58] LABS: Basophils # (auto) 0.02 K/uL (0-0.2); Basophils % (auto) 0.1 %; Eosinophils # (auto) 1.07 K/uL (0-0.5); Eosinophils % (auto) 7.9 %; Hematocrit (blood only) 33.4 % (37-47); Hemoglobin 10.8 g/dL (12.0-16.0); Immature Granulocytes # (auto) 0.12 K/uL (0.00-0.02); Immature Granulocytes % (auto) 0.9 %; Lymphocytes # (auto) 1.06 K/uL (1.2-3.4); Lymphocytes % (auto) 7.8 %; Mean Corpuscular Hemoglobin 27.7 pg (25-34); Mean Corpuscular Hgb Conc 32.3 g/dL (32-36); Mean Corpuscular Volume 85.6 fL (80-100); Mean Platelet Volume 8.9 fL (7.4-10.4); Monocytes # (auto) 0.68 K/uL (0.11-0.59); Neutrophils # (auto) 10.63 K/uL (1.4-6.5); Neutrophils % (auto) 78.3 %; Platelet Count 378 K/uL (130-400); RDW Coefficient of Variation 16.7 % (11.5-14.5); RDW Standard Deviation 52.4 fL (36.4-46.3); White Blood Count 13.58 K/uL (4.8-10.8)
[2019-03-27 05:16] LABS: BUN Creatinine Ratio 32.9 (10-20); Calcium 9.3 mg/dl (8.5-10.1); Creatinine Clr Calc Pharmacy 40.2 ml/min; Est GFR (African American) 65.7; Est GFR (Non-African American) 56.7; Magnesium 2.4 mg/dl (1.8-2.4); Phosphorus 2.9 mg/dl (2.5-4.9); Potassium 4.2 mmol/L (3.5-5.1)
--- NOTE | 2019-03-27 07:25 | Critical Care Progress Note ---
Date of Service March 27, 2019 Assessment & Plan (1) Admitted to intensive care unit: Reason Critically Ill: 88-year-old female with recent hospitalization for abdominal wound presents with ongoing and worsening hypoxic respiratory failure. Neuro - [facility] ICU: Negative Cardiac - Diastolic CHFlast echo showed EF 50 to 55% with septal wall motion abnormality -Likely source of dyspnea considering patient began to display symptoms after thiazide diuretic discontinued for ROXANNA -We will continue with aggressive diuresis, see respiratory failure below CADrecent cath showed stable cardiac disease -Continue Lipitor and Plavix PAFpatient had episode of A. fib RVR on this admission and was converted to IV amnio, converted to sinus rhythm with no further incidents -IV amnio discontinued at this time, continue oral amiodarone and metoprolol therapy -Continue monitoring on telemetry -will need anticoagulation for PAF once clinically stable, per talk with Dr. Horner, will hold for now and continuing outpatient setting HTNcontinue MTP, hydralazine Respiratory - Hypoxic respiratory failurechest x-ray showed significant pulmonary edema versus bilateral infiltrates with small bilateral pleural effusions -Patient weaned from CPAP to HFNC, still uses CPAP in p.m. -amio toxicity less likely as patient has only been on amiodarone since 02/27 -Continuing Primaxin for possible infectious process obtained while on Zosyn -Cannot rule out possible reaction from blood product as patient received 2 units RBCs Tuesday, however plan would not change from supportive therapy -Continue aggressive Lasix and Diuril therapy -Continuous monitoring with pulse ox and wean oxygen support as indicated with saturation goal 88 % GI - Abdominal woundabdominal wound appears to be well-healing with negative pressure dressing and antibiotic therapy last cultures grew E. coli, was treated with Augmentin outpatient now converted to Zosyn inpatient; antibiotics switched to Vanco and Primaxin considering possible development of pulmonary source of infection while on Zosyn; thank now DC'd and only on Primaxin - ID and wound care following GERDPPI RENAL/LYTES - AKIdeveloped on previous admission and has improved -Creatinine stable at this time and will continue diuresis with Lasix; will add Bumex as well -Continue to monitor with routine BMPs HypokalemiaIV diuretics likely contributing, continue scheduled potassium infusions -We will drawl regular BMPs and attempt to maintain potassium goal greater than 4.0 - Indwelling Marie catheter, strict I's and O's ENDO - Hyperglycemiaresolved -Continue ICU hyperglycemic protocol Hypothyroidismcontinue Synthroid HEME - Anemiawas found to be anemic on admission with hemoglobin less than 8, was transfused with 2 units RBCs considering respiratory failure -H&H has been stable since, will continue to trend -We will continue ferrous sulfate ID - Blood cultures negative to date ID consulted, will follow up recs MRSA PCR negative, vancomycin DC'd this a.m. Zosyn switched to Primaxin as patient may have developed pulmonary source while on Zosyn LINES/IV ACCESS - Peripheral IVs, Marie DVT PROPHYLAXIS - SCDs, heparin Thank you for allowing us to participate in the care of this patient. Please refer to my attending physician's documentation for any further recommendations. (2) Traumatic hematoma of abdominal wall with infection: (3) Pneumonia: (4) COPD (chronic obstructive pulmonary disease): (5) CHF (congestive heart failure): (6) Acute respiratory failure with hypoxia: (7) DVT prophylaxis: (8) PAF (paroxysmal atrial fibrillation): Supervising Physician Co-Signing Physician Notes I have personally evaluated and examined this patient. I agree with assessment and plan of [place] RAUSCH. Continued aggressive diuresis hopefully to wean oxygen requirement. Subjective Patient states that she is more comfortable this morning and symptoms of shortness of breath and work of breathing have improved. With however, she is still requiring high flow nasal cannula and CPAP with higher settings and she uses at home at night. We will continue aggressive diuresis and encourage therapy with PT OT. As of now patient remains hemodynamically stable without need for vasopressor support. At this time patient stable for downgrade to telemetry status. Review of Systems Review of Systems: All systems reviewed & are unremarkable except as noted in HPI & below Physical Exam Eyes: PERRL, conjunctivae normal, anicteric sclerae ENMT: external ear and nose normal, oropharynx normal Neck: trachea midline, no thyromegaly Respiratory: Symmetrical chest wall movement, nonlabored breathing, coarse crackles bilaterally with diminished bases. Cardiovascular: RRR, no murmur, no edema Rate/Rhythm: regular rate and regular rhythm Heart Sounds: normal S1 and normal S2; no murmur Vessels: no JVD Gastrointestinal (Abdomen): normal bowel sounds, soft, nontender, no hepatosplenomegaly Skin: no rashes, warm and dry Neurologic: PERRL, EOMI, accommodation nl, no face palsy, no dysarthria mo ves all extremities Cranial Nerves: PERRL Psychiatric: A+Ox3, euthymic affect Results & Data Vital Signs (Past 12 Hours) Vital Signs Temp Pulse Pulse Pulse Resp BP BP 03/27/19 07:23 62 16 03/27/19 07:21 61 20 03/27/19 06:00 67 67 24 148/71 H 148/71 H 03/27/19 05:00 60 60 21 144/59 H 144/59 H 03/27/19 04:02 64 64 21 03/27/19 04:00 59 L 59 L 20 144/59 H 144/59 H 03/27/19 03:00 57 L 57 L 25 H 164/65 H 164/65 H 03/27/19 02:00 56 L 56 L 24 143/56 H 143/56 H 03/27/19 01:00 56 L 56 L 26 H 147/64 H 147/64 H 03/27/19 00:00 36.8 C 62 62 26 H 145/61 H 145/61 H 03/26/19 23:33 54 L 25 H 03/26/19 23:20 54 L 25 H 03/26/19 23:00 53 L 53 L 26 H 150/65 H 150/65 H 03/26/19 22:00 58 L 58 L 27 H 146/56 H 146/56 H 03/26/19 21:00 63 63 20 146/58 H 146/58 H 03/26/19 20:00 37.0 C 63 63 28 H 146/58 H 146/58 H Pulse Ox 03/27/19 07:23 96 03/27/19 07:21 97 03/27/19 06:00 99 03/27/19 05:00 99 03/27/19 04:02 98 03/27/19 04:00 98 03/27/19 03:00 99 03/27/19 02:00 99 03/27/19 01:00 99 03/27/19 00:00 97 03/26/19 23:33 97 03/26/19 23:20 97 03/26/19 23:00 97 03/26/19 22:00 98 03/26/19 21:00 94 03/26/19 20:00 92 PG Care Time/CCT Total # of Minutes Spent Total Time Spent with Patient: Total time spent is greater than 50% in coordination of care (as documented) at patient's floor/unit and/or counseling patient: (1) Traumatic hematoma of abdominal wall with infection Encounter type: subsequent encounter Qualified Code(s): S30.1XXD - Contusion of abdominal wall, subsequent encounter; L08.9 - Local infection of the skin and subcutaneous tissue, unspecified (2) CHF (congestive heart failure) Heart failure chronicity: acute Heart failure type: unspecified Qualified Code(s): I50.9 - Heart failure, unspecified (3) COPD (chronic obstructive pulmonary disease) COPD type: COPD with acute exacerbation Qualified Code(s): J44.1 - Chronic obstructive pulmonary disease with (acute) exacerbation (4) Pneumonia Laterality: right Lung location: lower lobe of lung Pneumonia type: due to unspecified organism Qualified Code(s): J18.1 - Lobar pneumonia, unspecified organism
[2019-03-27] MEDS: AMIODARONE 200 MG TAB PO SCH (08:14)
[2019-03-27] MEDS: CALCIUM CARBONATE 1250MG TAB PO SCH ×2 (08:14→20:42)
[2019-03-27] MEDS: METOPROLOL TARTRATE 50 MG TAB PO SCH ×2 (08:14→20:35)
[2019-03-27] MEDS: CHOLECALCIFEROL 1,000 UNITS TAB PO SCH (08:14)
[2019-03-27] MEDS: PANTOprazole 40 MG TAB PO SCH (08:14)
[2019-03-27] MEDS: CLOPIDOGREL BISULFATE 75 MG TAB PO SCH (08:14)
[2019-03-27] MEDS: SACCHAROMYCES BOULARDII 250 MG CAP PO SCH (08:14)
[2019-03-27] MEDS: FERROUS SULFATE 325 MG TAB PO SCH ×2 (08:15→16:45)
[2019-03-27] MEDS: HEPARIN SOD 5,000 UNIT/0.5 ML VIAL SQ SCH (08:15)
[2019-03-27] MEDS: NYSTATIN SUSP 500,000 U/5 ML UDC PO SCH ×4 (08:15→20:39)
[2019-03-27] MEDS: NYSTATIN POWDER 15GM BTL EXT SCH ×3 (08:15→20:35)
[2019-03-27] MEDS: FLUTICASONE/VILANTEROL INHALER INH SCH (08:15)
[2019-03-27] MEDS: FLUOXETINE HCL 10 MG CAP PO SCH (08:16)
[2019-03-27] MEDS: MAGNESIUM OXIDE 400 MG TAB PO SCH ×2 (08:17→20:42)
[2019-03-27] MEDS: DOCUSATE SODIUM 100 MG CAP PO SCH ×2 (08:17→20:42)
[2019-03-27] MEDS ORDERED: APIXABAN 5 MG TABLET PO SCH (09:00)
--- NOTE | 2019-03-27 09:29 | Hospitalist Progress Note ---
Date of Service March 27, 2019 Assessment & Plan (1) Acute respiratory failure with hypoxia: Ongoing with modest improvement today. Likely combination of acute diastolic CHF and b/l pneumonia. COPD exacerbation was likely also present earlier this stay - treated previously with steroids. Doubt pulmonary toxicity from amiodarone - this was initiated on 02/27/19 - rather fast for development of such. Continue imipenem to cover for gram negatives/anaerobes. Defer length of antibiotics to critical care (but has been on abx since first day of hospitalization -- we are hospital day #9). Continue HFNC (or NC) with night-time CPAP. Continue IV lasix for acute CHF. Consider advanced imaging (CT chest) given how long we have been treating the various components to rule out any other player in her illness. (2) CHF (congestive heart failure): Acute diastolic. Echo 02/12/19 with preserved EF. Possible etiologies for her decompensated diastolic CHF -- uncontrolled a.fib, lack of diuretic (was on HCTZ when she left [facility]; it was apparently d/c while at rehab), dietary issues, etc. No evidence of ischemia. Net negative 8+ liters since admission. Cont IV lasix. Diuril IV per critical care. Appreciate Dr Horner's recommendations. Cr remains stable. Continue beta david (metoprolol tartrate 50mg BID). Strict I's and O's. Daily weights. (3) Pneumonia: probable/suspected. Bilateral. Has been on IV antibiotics since hospital day #1. Remains on imipenem - covering for gram negatives/hospital-acquired infections. Cont supportive care. Previous blood cx's were negative. (4) Asthma: with exacerbation at admission - that is resolved. off steroids. nebs prn. (5) A-fib: During her previous prolonged hospitalization she had 2 episodes of PAF with one lasting over 24 hours. She may be having runs of PAF outside the hospital. She has had additional PAF runs during this hospital stay. Remains on amiodarone 200mg daily and metoprolol 50mg BID. Appreciate cardiology consultation. No anticoagulation at this time. (6) CAD (coronary artery disease): History of such. No ischemic symptoms at this time. Cont BB, statin, plavix. (7) Chronic kidney disease, stage 3a: Cr stable. Repeat bmp am. (8) HTN (hypertension): Cont home medications. Stable. (9) Hyperlipidemia: Cont statin. (10) Hypothyroidism: TSH mildly elevated at presentation. Takes synthroid 25mcg daily. Consider repeating TSH later this stay. (11) Obstructive sleep apnea, adult: Cont home CPAP unit at HS. (12) Traumatic hematoma of abdominal wall with infection: Had spontaneous rupture of large intra-abdominal hematoma in February during her prolonged stay. The hematoma was due to a prior fall. Following rupture Dr Pablo performed I/D in the OR. Cultures showed e.coli. She had been on augmentin at [facility] and at home. The abdominal wound has improved considerably with Wound Vac. Would care continues to follow and change dressings M/W/F. (13) Anemia: H/H stable. Cont Ferrous Sulfate 325mg BID. (14) Transient ischemic attack: Had TIA during prior admission. Also with h/o CVA many years ago. On plavix for secondary prevention. Ideally should be on anticoagulation because of PAF but this has been deferred. (15) Acute hypokalemia: resolved. BMP in am. (16) Candidiasis of mouth and esophagus: thrush. nystatin 5cc po ac/hs. improved. (17) DVT prophylaxis: heparin 5000 BID speech assistance appreciated; diet choice per speech appreciate critical care assistance family updated to 2east tomorrow? Subjective no changes overnight. remains on HFNC during day and CPAP hs. worked with PT and sat in chair off/on during the day. son at bedside during the visit. appetite is better. wound vac still in place. Review of Systems Constitutional: no fever Respiratory: no cough Cardiovascular: no chest pain Gastrointestinal: no abdominal pain, no constipation and no diarrhea/loose stools Physical Exam Constitutional: + frail appearing; no altered mental status ENMT: Mouth: + oral mucosal abnormality (thrush plaques improved) Neck: trachea midline, no thyromegaly Respiratory: no respiratory distress Auscultation: + crackles (b/l -- 1/2 way up back); no wheezes Cardiovascular: Rate/Rhythm: regular rate and regular rhythm Heart Sounds: normal S1 and normal S2; no murmur Vessels: posterior tibial pulses present and dorsalis pedis pulses present; no JVD Extremities: no edema Gastrointestinal (Abdomen): Percussion/Palpation: abdomen soft; abdomen nontender and no hepatosplenomegaly Psychiatric: Orientation: alert and oriented x 3 Results & Data Vital Signs (Past 12 Hours) Vital Signs Temp Pulse Pulse Pulse Resp BP BP 03/27/19 07:23 62 16 03/27/19 07:21 61 20 03/27/19 06:00 67 67 24 148/71 H 148/71 H 03/27/19 05:00 60 60 21 144/59 H 144/59 H 03/27/19 04:02 64 64 21 03/27/19 04:00 59 L 59 L 20 144/59 H 144/59 H 03/27/19 03:00 57 L 57 L 25 H 164/65 H 164/65 H 03/27/19 02:00 56 L 56 L 24 143/56 H 143/56 H 03/27/19 01:00 56 L 56 L 26 H 147/64 H 147/64 H 03/27/19 00:00 36.8 C 62 62 26 H 145/61 H 145/61 H 03/26/19 23:33 54 L 25 H 03/26/19 23:20 54 L 25 H 03/26/19 23:00 53 L 53 L 26 H 150/65 H 150/65 H 03/26/19 22:00 58 L 58 L 27 H 146/56 H 146/56 H Pulse Ox 03/27/19 07:23 96 03/27/19 07:21 97 03/27/19 06:00 99 03/27/19 05:00 99 03/27/19 04:02 98 03/27/19 04:00 98 03/27/19 03:00 99 03/27/19 02:00 99 03/27/19 01:00 99 03/27/19 00:00 97 03/26/19 23:33 97 03/26/19 23:20 97 03/26/19 23:00 97 03/26/19 22:00 98 Laboratory Results Laboratory Results - last 24 hr 03/26/19 03/27/19 03/27/19 21:31 04:16 04:16 WBC 13.58 H RBC 3.90 L Hgb 10.8 L Hct 33.4 L MCV 85.6 MCH 27.7 MCHC 32.3 RDW Std Deviation 52.4 H RDW Coeff of [place] 16.7 H Plt Count 378 MPV 8.9 Immature Gran % (Auto) 0.9 Neut % (Auto) 78.3 Lymph % (Auto) 7.8 [place] % (Auto) 5.0 Eos % (Auto) 7.9 Baso % (Auto) 0.1 Immature Gran # (Auto) 0.12 H Neut # (Auto) 10.63 H Lymph # (Auto) 1.06 L [place] # (Auto) 0.68 H Eos # (Auto) 1.07 H Baso # (Auto) 0.02 Sodium 141 Potassium 4.3 D 4.2 Chloride 104 Carbon Dioxide 31 Anion Gap 6.0 BUN 30 H Creatinine 0.91 Est Cr Clr Drug Dosing 40.2 Est GFR ( Amer) 65.7 Est GFR (Non-Af Amer) 56.7 BUN/Creatinine Ratio 32.9 H Glucose 102 H Calcium 9.3 Phosphorus 2.9 Magnesium 2.4 PG Care Time/CCT Total # of Minutes Spent Total Time Spent with Patient: Total time spent is greater than 50% in coordination of care (as documented) at patient's floor/unit and/or counseling patient: (1) Traumatic hematoma of abdominal wall with infection Encounter type: subsequent encounter Qualified Code(s): S30.1XXD - Contusion of abdominal wall, subsequent encounter; L08.9 - Local infection of the skin and subcutaneous tissue, unspecified (2) CAD (coronary artery disease) Associated angina: without angina Coronary Disease-Associated Artery/Lesion type: [place] artery [place] vs. transplanted heart: [place] heart Qualified Code(s): I25.10 - Atherosclerotic heart disease of [place] coronary artery without angina pectoris (3) CHF (congestive heart failure) Heart failure chronicity: acute Heart failure type: unspecified Qualified Code(s): I50.9 - Heart failure, unspecified (4) Anemia Anemia type: unspecified type Qualified Code(s): D64.9 - Anemia, unspecified (5) A-fib Atrial fibrillation type: unspecified Qualified Code(s): I48.91 - Unspecified atrial fibrillation (6) Hyperlipidemia Hyperlipidemia type: mixed hyperlipidemia Qualified Code(s): E78.2 - Mixed hyperlipidemia (7) Hypothyroidism Hypothyroidism type: acquired Qualified Code(s): E03.9 - Hypothyroidism, unspecified (8) HTN (hypertension) Hypertension type: essential hypertension Qualified Code(s): I10 - Essential (primary) hypertension (9) Pneumonia Laterality: right Lung location: lower lobe of lung Pneumonia type: due to unspecified organism Qualified Code(s): J18.1 - Lobar pneumonia, unspecified organism (10) Asthma Asthma complication type: uncomplicated Asthma persistence: unspecified Asthma severity: unspecified severity Qualified Code(s): J45.909 - Unspecified asthma, uncomplicated
[2019-03-27] MEDS: CHLOROTHIAZIDE SODIUM 500 MG in DEXTROSE 5% 50 ML IV SCH ×2 (09:38→22:49)
[2019-03-27] MEDS: POTASSIUM CHLORIDE 20 MEQ TABCR PO SCH ×2 (09:38→20:36)
--- NOTE | 2019-03-27 10:09 | Cardiology Progress Note ---
Date of Service March 27, 2019 Assessment & Plan (1) Acute respiratory failure with hypoxia: Continues to improve with decreasing oxygen requirements. Etiology is multifactorial and likely includes a degree of volume overload and bilobar pneumonia. Management per the ICU team. (2) Acute on chronic diastolic CHF (congestive heart failure): Continues on IV furosemide 40 mg every 8 hrs. (3) PAF (paroxysmal atrial fibrillation): The patient remains in sinus rhythm on amiodarone 200 mg b.i.d.. We decided during her last hospitalization that long-term anticoagulation would be high risk. We can revisit this issue once she has recovered. (4) CAD (coronary artery disease): Nonobstructive coronary artery disease identified on cardiac catheterization in May 2009. (5) HTN (hypertension): Adequate control on current medical regimen. Subjective The patient is resting comfortably bed without complaints of chest pain, dyspnea, or palpitations. Family is at the bedside. Physical Exam Physical Exam: In general is well-developed well-nourished white female no acute distress. HEENT exam notes a BiPAP mask in place. Neck is supple with full carotid upstrokes. There are no carotid bruits. No jugular venous distention. There is no thyromegaly. Cardiovascular exam reveals a regular rhythm with distant heart sounds. No obvious murmurs. Lungs are clear without rales, rhonchi or wheezes. Abdomen notes a wound VAC in place. Extremities reveal intact radial artery pulses bilaterally. Trace pretibial edema. Results & Data Vital Signs (Past 12 Hours) Vital Signs Temp Pulse Pulse Pulse Resp BP BP 03/27/19 07:23 62 16 03/27/19 07:21 61 20 03/27/19 06:00 67 67 24 148/71 H 148/71 H 03/27/19 05:00 60 60 21 144/59 H 144/59 H 03/27/19 04:02 64 64 21 03/27/19 04:00 59 L 59 L 20 144/59 H 144/59 H 03/27/19 03:00 57 L 57 L 25 H 164/65 H 164/65 H 03/27/19 02:00 56 L 56 L 24 143/56 H 143/56 H 03/27/19 01:00 56 L 56 L 26 H 147/64 H 147/64 H 03/27/19 00:00 36.8 C 62 62 26 H 145/61 H 145/61 H 03/26/19 23:33 54 L 25 H 03/26/19 23:20 54 L 25 H 03/26/19 23:00 53 L 53 L 26 H 150/65 H 150/65 H Pulse Ox 03/27/19 07:23 96 03/27/19 07:21 97 03/27/19 06:00 99 03/27/19 05:00 99 03/27/19 04:02 98 03/27/19 04:00 98 03/27/19 03:00 99 03/27/19 02:00 99 03/27/19 01:00 99 03/27/19 00:00 97 03/26/19 23:33 97 03/26/19 23:20 97 03/26/19 23:00 97 Diagnostic Findings Monitor monitor notes normal sinus rhythm without episodes of atrial fibrillation. PG Care Time/CCT Total # of Minutes Spent Total Time Spent with Patient: Total time spent is greater than 50% in coordination of care (as documented) at patient's floor/unit and/or counseling patient: (1) CAD (coronary artery disease) Associated angina: without angina Coronary Disease-Associated Artery/Lesion type: [place] artery [place] vs. transplanted heart: [place] heart Qualified Code(s): I25.10 - Atherosclerotic heart disease of [place] coronary artery without angina pectoris (2) HTN (hypertension) Hypertension type: essential hypertension Qualified Code(s): I10 - Essential (primary) hypertension
--- NOTE | 2019-03-27 10:26 | Pharmacy Report ---
Pharmacy Glycemic Sign Off Nt - Date of Service March 27, 2019 - Assessment & Plan ASSESSMENT: * Pharmacy was consulted by Dr Shelley on 03/21 for glycemic control and to write orders per [facility] inpatient glycemic control protocol. * Over the last 4 days this patient has not required any insulin and Glu / BSGs have been at goal. * She has no dx of DM * The hyperglycemia observed on 03/22 was likely secondary to a stress response at the time which has since resolved. * Pharmacy is signing off of glycemic consult and will no longer be making adjustments to inpatient regimen. Please feel free to re-consult if needed. Thank you.
[2019-03-27 15:53] LABS: BUN Creatinine Ratio 37.3 (10-20); Calcium 9.6 mg/dl (8.5-10.1); Creatinine Clr Calc Pharmacy 39.3 ml/min; Est GFR (Non-African American) 55.3; Potassium 3.8 mmol/L (3.5-5.1)
--- NOTE | 2019-03-27 17:23 | Palliative Care Progress Note ---
Date of Service March 27, 2019 Assessment & Plan (1) Goals of care, counseling/discussion: Goals of care, counseling/discussion: Patient is an 88-year-old female with a past medical history significant for newly diagnosed paroxysmal A. fib, diastolic heart failure, COPD, recent abdo neo wall hematoma, CKD stage III, history of TIA/CVA 17, MADELINE, hypothyroid, CAD, hypertension and depression who was hospitalized here at [facility] from February 07 to March 02 for an abdominal wall hematoma that spontaneously ruptured- patient was on a wound VAC for over a month with good healing. After this hospitalization patient spent 2 weeks at [facility] and was recently discharged on 03/15. Patient had done well in rehab. Patient had a choking episode on 03/16 and continue to have worsening shortness of breath over the next couple days. On 03/18 patient was having severe shortness of breath and was brought to the emergency room. In the emergency room chest x-ray showed cardiomegaly with edema, white count was 16.69 with a hemoglobin of 8.8. Patient was admitted and diuresed-her hemoglobin dropped to 7.5 and she was transfused. Hemoglobin has been stable at 10.8. Patient has required aggressive diuresis-she continued to have shortness of breath and required BiPAP and is currently in the ICU. Patient is currently on high flow nasal cannula titrated up to 30 LPM with BiPAP nightly Patient awake alert and oriented-able to participate in conversation. Patient named her daughter, Gaby as medical decision-maker on previous visit. Patient's at bedside. Patient lives with her who is in fairly good health-has slight memory issues. CODE STATUS-full code, she would not want prolonged intubation or be maintained on life support for an indefinite period of time. Patient's daughter is aware of patient's wishes-has had discussions in the past regarding her living will. Patient had 4 children-the eldest approximately 20 years ago. Her daughter Gaby, is the oldest of the 3 siblings. Patient has another daughter and son- all 3 children live in the [place] area. Patient was never a smoker, however was exposed to secondhand smoke from age [age]. Patient did have asthma as a child. -CODE STATUS-patient wishes to remain a full code, would want to avoid intubation for as long as possible as she does not wish to be sedated and not be able to communicate -Paroxysmal A. fib-this is a relatively new diagnosis-patient was on amiodarone and metoprolol and had an episode of A. fib while on amiodarone-patient converted on Cardizem -now back on amiodarone and metoprolol. Patient is on Plavix for AC -Diastolic CHF-patient is being aggressively diuresed, patient's renal function is remaining steady and tolerating diuresis with Lasix every 8 hours. Respiratory status improving with aggressive diuresis -Acute respiratory failure with hypoxia-underlying COPD as well as diastolic heart failure and possible pneumonia contributing-patient slowly improving, weaning O2 as tolerated -COPD-continue respiratory support, diuresis, as well as budesonide and albuterol. Patient on Primaxin and Vanco for possible pneumonia -Abdominal wall abscess-wound VAC in place, wound healing well. -Depression-has been doing well on current dose of Prozac -Hypothyroid-on Synthroid Will continue to follow and assist patient and family with medical decision making as needed. (2) PAF (paroxysmal atrial fibrillation): (3) Acute on chronic diastolic CHF (congestive heart failure): (4) Acute respiratory failure with hypoxia: (5) COPD (chronic obstructive pulmonary disease): COPD type: COPD with acute exacerbation Qualified Code(s): J44.1 - Chronic obstructive pulmonary disease with (acute) exacerbation (6) Abscess of abdominal wall: (2) Acute on chronic diastolic CHF (congestive heart failure): Improving with aggressive diuresis-on Lasix IV every 8 hours (3) Acute respiratory failure with hypoxia: Improving, did need O2 titrated upward-on BiPAP nightly, overall appears better (4) COPD (chronic obstructive pulmonary disease): Slowly improving with aggressive pulmonary toilet, titrating O2 as required (5) Abscess of abdominal wall: Healing with wound VAC (6) PAF (paroxysmal atrial fibrillation): Rate well controlled on amiodarone and metoprolol Subjective The patient is resting comfortably bed without complaints of chest pain, dyspnea, or palpitations. is at the bedside. Review of Systems Review of Systems: Patient denies fever, chills, chest pain, increased shortness of breath, or abdominal pain Patient reports she feels she is getting better-feels more rested. Physical Exam Physical Exam: PE: Patient awake alert, appears comfortable on high flow nasal cannula HEENT: EOMI, hearing within normal limits Respiratory: Unlabored, less short of breath with conversation, coarse breath sounds bilaterally CV: Regular rate Abdomen: Not distended Neuro: Alert and oriented x4 Psych: Appropriate mood and affect Results & Data Vital Signs (Past 12 Hours) Vital Signs Temp Pulse Pulse Pulse Resp BP BP 03/27/19 16:00 58 L 27 H 158/70 H 03/27/19 15:06 60 24 03/27/19 15:00 65 24 132/97 03/27/19 14:00 60 24 144/64 H 03/27/19 13:12 59 L 27 H 148/66 H 03/27/19 12:01 63 27 H 137/75 03/27/19 11:15 63 22 03/27/19 11:00 63 26 H 140/62 03/27/19 10:00 64 25 H 146/61 H 03/27/19 09:00 64 25 H 137/60 03/27/19 08:13 98.1 F 63 20 134/73 03/27/19 07:23 62 16 03/27/19 07:21 61 20 03/27/19 07:00 60 22 164/69 H 03/27/19 06:00 67 67 24 148/71 H BP Pulse Ox 03/27/19 16:00 96 03/27/19 15:06 89 L 03/27/19 15:00 90 03/27/19 14:00 93 03/27/19 13:12 95 03/27/19 12:01 93 03/27/19 11:15 90 03/27/19 11:00 95 03/27/19 10:00 91 03/27/19 09:00 96 03/27/19 08:13 89 L 03/27/19 07:23 96 03/27/19 07:21 97 03/27/19 07:00 99 03/27/19 06:00 148/71 H 99 PG Care Time/CCT Total # of Minutes Spent Total Time Spent with Patient: Total time spent is greater than 50% in coordination of care (as documented) at patient's floor/unit and/or counseling patient: Time Spent Attending Total time spent 25 minutes with greater than 50% of the time spent at bedside assessing patient's current status and providing support to patient and family (1) COPD (chronic obstructive pulmonary disease) COPD type: COPD with acute exacerbation Qualified Code(s): J44.1 - Chronic obstructive pulmonary disease with (acute) exacerbation
[2019-03-27] MEDS: ATORVASTATIN 20 MG TAB PO SCH (20:38)
[2019-03-27] MEDS: MULTIVITAMIN TAB PO SCH (20:39)
[2019-03-27] MEDS: LEVOTHYROXINE SODIUM 25 MCG TABLET PO SCH (20:42)
[2019-03-27] MEDS: FLUOXETINE HCL 20 MG CAP PO SCH (20:42)
[2019-03-28 03:08] LABS: Basophils # (auto) 0.01 K/uL (0-0.2); Basophils % (auto) 0.1 %; Eosinophils # (auto) 1.81 K/uL (0-0.5); Eosinophils % (auto) 12.7 %; Hematocrit (blood only) 34.2 % (37-47); Hemoglobin 11.3 g/dL (12.0-16.0); Immature Granulocytes # (auto) 0.17 K/uL (0.00-0.02); Immature Granulocytes % (auto) 1.2 %; Lymphocytes # (auto) 1.02 K/uL (1.2-3.4); Lymphocytes % (auto) 7.2 %; Mean Corpuscular Hemoglobin 28.5 pg (25-34); Mean Corpuscular Volume 86.4 fL (80-100); Mean Platelet Volume 8.6 fL (7.4-10.4); Monocytes # (auto) 0.71 K/uL (0.11-0.59); Neutrophils # (auto) 10.48 K/uL (1.4-6.5); Neutrophils % (auto) 73.8 %; Platelet Count 331 K/uL (130-400); RDW Coefficient of Variation 16.6 % (11.5-14.5); RDW Standard Deviation 52.1 fL (36.4-46.3); Red Blood Count 3.96 M/uL (4.2-5.4)
[2019-03-28 03:18] LABS: BUN Creatinine Ratio 33.9 (10-20); Calcium 9.7 mg/dl (8.5-10.1); Creatinine Clr Calc Pharmacy 37.7 ml/min; Est GFR (African American) 60.9; Est GFR (Non-African American) 52.5; Magnesium 2.2 mg/dl (1.8-2.4)
[2019-03-28 03:19] LABS: Phosphorus 2.9 mg/dl (2.5-4.9)
[2019-03-28] MEDS: IMIPENEM/CILASTATIN SODIUM 300 MG in DEXTROSE 5% 100 ML IV SCH ×4 (04:03→21:30)
--- NOTE | 2019-03-28 06:57 | XRay Report ---
XR chest 1V portable CLINICAL HISTORY: Abnormal chest x-ray. Follow-up examination. SHORTNESS OF BREATH. COMPARISON STUDY: 03/26/2019 FINDINGS: The heart remains enlarged. There is subtle improvement in the bilateral pulmonary airspace opacities.[Diagnostic considerations remain improving pulmonary edema versus improving multifocal pn eum[place]. Trace pleural effusions are suspected. IMPRESSION: Subtle improvement in the previously described bilateral pulmonary airspace opacities. Electronically signed by: Rosalio Childs M.D. 03/28/2019 6:56 AM
--- NOTE | 2019-03-28 07:53 | Critical Care Progress Note ---
Date of Service March 28, 2019 Assessment & Plan (1) Admitted to intensive care unit: Reason Critically Ill: 88-year-old female with recent hospitalization for abdominal wound presents with ongoing and worsening hypoxic respiratory failure. Neuro - [facility] ICU: Negative Cardiac - Diastolic CHFlast echo showed EF 50 to 55% with septal wall motion abnormality -Likely source of dyspnea considering patient began to display symptoms after thiazide diuretic discontinued for ROXANNA -We will continue with aggressive diuresis, see respiratory failure below CADrecent cath showed stable cardiac disease -Continue Lipitor and Plavix PAFpatient had episode of A. fib RVR on this admission and was converted to IV amnio, converted to sinus rhythm with no further incidents -IV amnio discontinued at this time, continue oral amiodarone and metoprolol therapy -Continue monitoring on telemetry -will defer to cardiology to restart Eliquis HTNcontinue MTP, hydralazine Respiratory - Hypoxic respiratory failurechest x-ray showed significant pulmonary edema versus bilateral infiltrates with small bilateral pleural effusions -Patient weaned from CPAP to HFNC, still uses CPAP in p.m. -amio toxicity less likely as patient has only been on amiodarone since 02/27 -Primaxin 7-day course finished. Was started for possible infectious process obtained while on Zosyn -Cannot rule out possible reaction from blood product as patient received 2 units RBCs Tuesday, however plan would not change from supportive therapy -Giving Diamox this a.m. and diarrheal this afternoon. We will continue every 8 hours Lasix IV. -Continuous monitoring with pulse ox and wean oxygen support as indicated wit h saturation goal 88 % -We will do peak flow with scheduled nebs today GI - Abdominal woundabdominal wound appears to be well-healing with negative pressure dressing and antibiotic therapy last cultures grew E. coli, was treated with Augmentin outpatient now converted to Zosyn inpatient; antibiotics switched to Vanco and Primaxin considering possible development of pulmonary source of infection while on Zosyn. -Wound care reconsulted as patient has finished course of Primaxin and will defer need for antibiotic therapy at this time concerning abdominal wound GERDPPI RENAL/LYTES - AKIdeveloped on previous admission and has improved -Creatinine stable at this time and will continue diuresis with Lasix, Diuril, Diamox -Continue to monitor with routine BMPs HypokalemiaIV diuretics likely contributing, continue scheduled potassium infusions -We will drawl regular BMPs and attempt to maintain potassium goal greater than 4.0 - Indwelling Marie catheter, strict I's and O's ENDO - Hyperglycemiaresolved -Continue ICU hyperglycemic protocol Hypothyroidismcontinue Synthroid HEME - Anemiawas found to be anemic on admission with hemoglobin less than 8, was transfused with 2 units RBCs considering respiratory failure -H&H has been stable since, will continue to trend -We will continue ferrous sulfate ID - Blood cultures negative to date ID consulted, will follow up recs MRSA PCR negative, vancomycin DC'd this a.m. Zosyn switched to Primaxin as patient may have developed pulmonary source while on Zosyn LINES/IV ACCESS - Peripheral IVs, Marie DVT PROPHYLAXIS - SCDs, heparin Thank you for allowing us to participate in the care of this patient. Please refer to my attending physician's documentation for any further recommendations. (2) Traumatic hematoma of abdominal wall with infection: (3) Pneumonia: (4) COPD (chronic obstructive pulmonary disease): (5) CHF (congestive heart failure): (6) Acute respiratory failure with hypoxia: (7) DVT prophylaxis: (8) PAF (paroxysmal atrial fibrillation): Supervising Physician Co-Signing Physician Notes I have personally evaluated and examined this patient. I agree with assessment and plan of German RAUSCH. Continued aggressive diuresis, I gave additional dose of Diamox in addition to Diuril, she is showing signs of contraction alkalosis., Patient has exceedingly poor respiratory function checking pre-and post bronchodilator treatment, she did have an adequate response however her absolute peak flow is rather low. E mpiric steroid burst hopefully to decrease any additional inflammation. I am highly concerned she is at risk for recurrent and worsening exacerbations likely combined with increasing frequency and length of hospitalizations. Subjective There are no changes in the patient's status overnight. She continues to require CPAP at night with high flow nasal cannula during the day. She is down 1700 mL volume status for the past 24 hours however she continues to have significant pulmonary edema on chest x-ray this a.m. We will continue aggressive diuresis and PT OT. Patient currently stable for transfer to telemetry. Review of Systems Review of Systems: All systems reviewed & are unremarkable except as noted in HPI & below She currently denies headache, pain, dizziness, shortness of breath, increased work of breathing, chest pain, palpitations, abdominal pain, nausea or vomiting, or diarrhea. Physical Exam Eyes: PERRL, conjunctivae normal, anicteric sclerae ENMT: external ear and nose normal, oropharynx normal Neck: trachea midline, no thyromegaly Cardiovascular: RRR, no murmur, no edema Rate/Rhythm: regular rate and regular rhythm Heart Sounds: normal S1 and normal S2; no murmur Vessels: no JVD Gastrointestinal (Abdomen): normal bowel sounds, soft, nontender, no hepatosplenomegaly Skin: no rashes, warm and dry Neurologic: PERRL, EOMI, accommodation nl, no face palsy, no dysarthria moves all extremities Cranial Nerves: PERRL Psychiatric: A+Ox3, euthymic affect Results & Data Vital Signs (Past 12 Hours) Vital Signs Temp Pulse Pulse Resp BP BP Pulse Ox 03/28/19 07:36 57 L 20 91 03/28/19 06:00 54 L 20 144/62 H 97 03/28/19 04:00 36.7 C 54 L 22 128/55 L 96 03/28/19 02:00 54 L 56 L 21 117/56 L 94 03/28/19 00:00 36.8 C 55 L 24 135/62 93 03/27/19 22:00 55 L 26 H 151/83 H 93 03/27/19 21:33 58 L 26 H 93 03/27/19 20:00 36.6 C 60 22 136/63 95 PG Care Time/CCT Total # of Minutes Spent Total Time Spent with Patient: Total time spent is greater than 50% in coordination of care (as documented) at patient's floor/unit and/or counseling patient: (1) Traumatic hematoma of abdominal wall with infection Encounter type: subsequent encounter Qualified Code(s): S30.1XXD - Contusion of abdominal wall, subsequent encounter; L08.9 - Local infection of the skin and subcutaneous tissue, unspecified (2) CHF (congestive heart failure) Heart failure chronicity: acute Heart failure type: unspecified Qualified Code(s): I50.9 - Heart failure, unspecified (3) COPD (chronic obstructive pulmonary disease) COPD type: COPD with acute exacerbation Qualified Code(s): J44.1 - Chronic obstructive pulmonary disease with (acute) exacerbation (4) Pneumonia Laterality: right Lung location: lower lobe of lung Pneumonia type: due to unspecified organism Qualified Code(s): J18.1 - Lobar pneumonia, unspecified organism
[2019-03-28] MEDS: FUROSEMIDE 40 MG in SYRINGE 0 ML IV SCH ×2 (08:01→15:46)
[2019-03-28] MEDS: AMIODARONE 200 MG TAB PO SCH (08:02)
[2019-03-28] MEDS: CALCIUM CARBONATE 1250MG TAB PO SCH ×2 (08:02→20:38)
[2019-03-28] MEDS: SACCHAROMYCES BOULARDII 250 MG CAP PO SCH (08:03)
[2019-03-28] MEDS: NYSTATIN SUSP 500,000 U/5 ML UDC PO SCH ×4 (08:03→20:36)
[2019-03-28] MEDS: FLUOXETINE HCL 10 MG CAP PO SCH (08:03)
[2019-03-28] MEDS: CHOLECALCIFEROL 1,000 UNITS TAB PO SCH (08:04)
[2019-03-28] MEDS: PANTOprazole 40 MG TAB PO SCH (08:04)
[2019-03-28] MEDS: NYSTATIN POWDER 15GM BTL EXT SCH ×3 (08:04→20:38)
[2019-03-28] MEDS: CLOPIDOGREL BISULFATE 75 MG TAB PO SCH (08:04)
[2019-03-28] MEDS: FLUTICASONE/VILANTEROL INHALER INH SCH (08:04)
[2019-03-28] MEDS: FERROUS SULFATE 325 MG TAB PO SCH ×2 (08:04→16:58)
[2019-03-28] MEDS: POTASSIUM CHLORIDE 20 MEQ TABCR PO SCH (08:05)
[2019-03-28] MEDS: MAGNESIUM OXIDE 400 MG TAB PO SCH ×2 (08:07→20:40)
[2019-03-28] MEDS: DOCUSATE SODIUM 100 MG CAP PO SCH ×2 (08:07→20:40)
[2019-03-28] MEDS: HEPARIN SOD 5,000 UNIT/0.5 ML VIAL SQ SCH ×2 (08:57→20:36)
[2019-03-28] MEDS: predniSONE 20 MG TAB PO SCH (08:58)
[2019-03-28] MEDS: METOPROLOL TARTRATE 50 MG TAB PO SCH (09:00)
[2019-03-28] MEDS ORDERED: acetaZOLAMIDE 500 MG in SYRINGE 0 ML IV ONE (09:00)
[2019-03-28] MEDS: ALBUT/IPRATROP 3MG/0.5MG NEB 3 ML VIAL NEB PRN (09:16)
[2019-03-28] MEDS ORDERED: POTASSIUM CHLORIDE 20 MEQ TABCR PO SCH (12:00)
--- NOTE | 2019-03-28 14:59 | Wound Consultation ---
Date of Consultation March 28, 2019 Assessment & Plan (1) Abscess of abdominal wall: Wound continues to improve. No debridement was required today. Continue antibiotics per infectious disease. We will change patient to silver foam and continue the wound VAC. Patient's and daughter were present for exam. I answered all of their questions satisfactorily. Thank you for allowing to participate in the care of this patient. Please not hesitate to call with any questions. History of Present Illness Reason for Consultation: Surgical wound secondary traumatic hematoma of the abdominal wall with infection status post I&D Attending Physician: Trevor Cardoso This 88-year-old female who is known to the wound clinic with a history of surgical wound secondary to traumatic hematoma of the abdominal wall with infection status post I&D. Patient has been treating the wound with a wound VAC. Patient was readmitted to the hospital with pneumonia. I am following up with his chronic wound. Allergies Allergy/AdvReac Type Severity Reaction Status Date / Time oxycodone Allergy Mild RASH Verified 03/18/19 08:45 alendronate sodium Allergy Unknown [facility] LIST Verified 03/18/19 08:45 [facility] 02/07/18 04:16 cefuroxime Allergy Unknown UNKNOWN ON Verified 03/18/19 08:45 LIST Cipro Allergy Unknown Unknown Verified 02/07/18 21:42 ciprofloxacin Allergy Unknown UNKNOWN ON Verified 03/18/19 08:45 LIST codeine Allergy Unknown UNKNOWN ON Verified 03/18/19 08:45 LIST gabapentin Allergy Unknown UNKNOWN ON Verified 03/18/19 08:45 LIST meperidine Allergy Unknown UNKNOWN ON Verified 03/18/19 08:45 LIST propoxyphene Allergy Unknown UNKNOWN ON Verified 03/18/19 08:45 LIST Sulfa (Sulfonamide Allergy Unknown UNKNOWN ON Verified 03/18/19 08:45 Antibiotics) LIST sulfamethoxazole Allergy Unknown [facility] LIST Verified 03/18/19 08:45 trimethoprim Allergy Unknown [facility] LIST Verified 03/18/19 08:45 amphetamine AdvReac Severe UNKNOWN ON Verified 03/18/19 08:45 LIST dextroamphetamine AdvReac Severe UNKNOWN ON Verified 03/18/19 08:45 LIST hydrochlorothiazide AdvReac Intermediate GI DISTRESS Verified 03/18/19 08:45 methyldopa AdvReac Intermediate GI DISTRESS Verified 03/18/19 08:45 Home Medications Home Medications Medication Instructions Recorded Confirmed Type Breo Ellipta 1 inh INHALATION QAM 12/26/18 03/18/19 History albuterol sulfate [Ventolin HFA] 1 - 2 puff INHALATION Q4 PRN 12/26/18 03/18/19 History amlodipine 10 mg PO QAM 12/26/18 03/18/19 History atorvastatin 20 mg PO HS 12/26/18 03/18/19 History calcium carbonate 300 mg PO BID 12/26/18 03/18/19 History cholecalciferol (vitamin D3) 2,000 unit PO QAM 12/26/18 03/18/19 History [Vitamin D3] fluoxetine 10 mg PO QAM 12/26/18 03/18/19 History fluoxetine 20 mg PO QPM 12/26/18 03/18/19 History metoprolol succinate 100 mg PO QAM 12/26/18 03/18/19 History multivitamin 1 tab PO PM 12/26/18 03/18/19 History omega 5-zdh-[id number]-fish oil [Fish Oil] 1 cap PO QAM 12/26/18 03/18/19 History potassium chloride 10 meq PO QAM 12/26/18 03/18/19 History levothyroxine 25 mcg PO HS 02/06/19 03/18/19 History amiodarone 200 mg PO QAM #30 tab 03/02/19 03/18/19 Rx ferrous sulfate 325 mg PO BID #60 tab 03/02/19 03/18/19 Rx magnesium oxide 400 mg PO BID #60 tab 03/02/19 03/18/19 Rx acetaminophen 500 mg capsule 500 mg PO Q4H PRN MDD 6 tablets in 03/05/19 03/18/19 History 24 hours docusate sodium 100 mg capsule 100 mg PO BID 03/05/19 03/18/19 History Lactobacillus acidophilus capsule 100 mg PO QAM 03/16/19 03/18/19 History amoxicillin 875 mg-potassium 1 tab PO BID #60 tab 03/16/19 03/18/19 Rx clavulanate 125 mg tablet omeprazole 20 mg capsule,delayed 20 mg PO QAM #90 cap 03/16/19 03/18/19 History release clopidogrel [Plavix] 75 mg PO QAM 03/18/19 03/18/19 History lisinopril 40 mg tablet 40 mg PO DAILY #90 tab 03/21/19 03/21/19 History omeprazole 20 mg tablet,delayed PO tab 03/21/19 03/21/19 History release triamterene 37.5 1 cap PO DAILY #90 cap 03/21/19 03/21/19 History mg-hydrochlorothiazide 25 mg capsule Patient History Medical History A-fib (Chronic) Abscess of abdominal wall (Chronic) Chronic kidney disease, stage 3a (Chronic) Metabolic encephalopathy (Resolved) Tremor (Chronic) Vertigo (Resolved) Transient ischemic attack (Resolved) Obstructive sleep apnea, adult (Chronic) Hypothyroidism (Chronic) Hyperlipidemia (Chronic) Depression (Chronic) Chronic cerebral ischemia (Resolved) Chronic asthmatic bronchitis (Chronic) CAD (coronary artery disease) (Chronic) Asthma (Chronic) HTN (hypertension) (Chronic) COPD (chronic obstructive pulmonary disease) (Chronic) Surgical History S/P cholecystectomy (Resolved) S/P hernia repair (Resolved) S/P hysterectomy (Resolved) Family History Mother , age 86 of an DE. She also had COPD. Myocardial infarction COPD (chronic obstructive pulmonary disease) Father , age 47 of an [place]. 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 other: 4 children, 1 is already Feels Safe at Home: Yes Smoking Status: Never smoker Hx Alcohol Use: No Hx Substance Use: No Childhood Exposure to Second-Hand Smoke: No Review of Systems Review of Systems: All systems reviewed & are unremarkable except as noted in HPI & below Physical Exam Skin: Wound measuring as recorded in nursing documentation. Wound bed appears healthy. There is good granulation tissue. Periwound is intact without erythema. Neurologic: awake; not confused Psychiatric: A+Ox3, euthymic affect Results & Data Vital Signs (Past 12 Hours) Vital Signs Temp Pulse Pulse Resp BP BP Pulse Ox 03/28/19 14:00 57 L 23 113/59 L 96 03/28/19 13:00 59 L 25 H 111/65 96 03/28/19 12:00 36.6 C 64 32 H 116/51 L 91 03/28/19 11:26 64 24 96 03/28/19 11:00 76 111/63 91 03/28/19 10:00 59 L 24 109/46 L 96 03/28/19 09:20 59 L 20 93 03/28/19 09:00 62 21 108/47 L 93 03/28/19 08:00 36.5 C 56 L 24 128/60 95 03/28/19 07:36 57 L 20 91 03/28/19 07:00 55 L 20 131/59 L 96 03/28/19 06:00 54 L 20 144/62 H 97 03/28/19 04:00 36.7 C 54 L 22 128/55 L 96
[2019-03-28 15:59] LABS: BUN Creatinine Ratio 32.8 (10-20); Calcium 9.7 mg/dl (8.5-10.1); Creatinine Clr Calc Pharmacy 32.1 ml/min; Est GFR (African American) 52.3; Est GFR (Non-African American) 45.1; Potassium 4.9 mmol/L (3.5-5.1)
--- NOTE | 2019-03-28 20:34 | Hospitalist Progress Note ---
Date of Service March 28, 2019 Assessment & Plan (1) Acute respiratory failure with hypoxia: Ongoing. Cont with NC O2 requirement despite 10+ days of aggressive diuresis, broad- spectrum IV antibiotics, steroids, etc. Likely combination of acute diastolic CHF and b/l pneumonia. COPD exacerbation was likely also present earlier this stay - treated previously with steroids. I cannot rule out another concomitant process contributing to current clinical state. Doubt pulmonary toxicity from amiodarone - this was initiated on 02/27/19 - rather fast for development of such. Continue imipenem to cover for gram negatives/anaerobes. We are, however, on day #10 of hospital stay and she has received 10 days of IV abx. Would d/c them. Continue NC O2 during day with night-time CPAP. If lung exam is same tomorrow will obtain chest CT to r/o SERVICE COORDINATOR, other interstitial process, etc. Patient appears to be euvolemic clinically and Cr juaquin overnight - IV lasix stopped today. (2) CHF (congestive heart failure): Acute diastolic. Echo 02/12/19 with preserved EF. Possible etiologies for her decompensated diastolic CHF -- uncontrolled a.fib, lack of diuretic (was on HCTZ when she left [facility]; it was apparently d/c while at rehab), dietary issues, etc. No evidence of ischemia. Net negative 9+ liters since admission. Appreciate Dr Horner's recommendations. Cr juaquin this am. Continue beta david (metoprolol tartrate 50mg BID). Suspect we are near or at euvolemia. lasix IV stopped today by critical care team. (3) Pneumonia: probable/suspected. Bilateral. Has been on IV antibiotics since ER presentation (has received 10+ days of IV abx therapy -- broad spectrum). Remains on imipenem - covering for gram negatives/hospital-acquired infections. Cont supportive care. Previous blood cx's were negative. stop abx tomorrow?? (4) Asthma: with exacerbation at admission. received about 5 days of IV steroids early in admission. prednisone restarted by Dr Ríos today. will continue for now. (5) A-fib: During her previous prolonged hospitalization she had 2 episodes of PAF with one lasting over 24 hours. She may be having runs of PAF outside the hospital. She has had additional PAF runs during this hospital stay. Remains on amiodarone 200mg daily and metoprolol 50mg BID. Appreciate cardiology consultation. No anticoagulation at this time. No PAF in several days. (6) CAD (coronary artery disease): History of such. No ischemic symptoms at this time. Cont BB, statin, plavix. (7) Chronic kidney disease, stage 3a: Cr modestly juaquin overnight in face of diuresis. Repeat bmp am. (8) HTN (hypertension): Cont home medications. Stable. (9) Hyperlipidemia: Cont statin. (10) Hypothyroidism: TSH mildly elevated at presentation. Takes synthroid 25mcg daily. Will repeat TFTs in am. (11) Obstructive sleep apnea, adult: Cont home CPAP unit at HS. (12) Traumatic hematoma of abdominal wall with infection: Had spontaneous rupture of large intra-abdominal hematoma in February during her prolonged stay. The hematoma was due to a prior fall. Following rupture Dr Pablo performed I/D in the OR. Cultures showed e.coli. She had been on augmentin at [facility] and at home. The abdominal wound has improved considerably with Wound Vac. Would care continues to follow and change dressings M/W/F. Appreciate Dr Koroma's consultation today. (13) Anemia: H/H cont to be stable. Cont Ferrous Sulfate 325mg BID. (14) Transient ischemic attack: Had TIA during prior admission. Also with h/o CVA many years ago. On plavix for secondary prevention. Ideally should be on anticoagulation because of PAF but this has been deferred. (15) Acute hypokalemia: resolved. BMP in am for stability. (16) Candidiasis of mouth and esophagus: thrush. resolved. nystatin 5cc po ac/hs. (17) DVT prophylaxis: heparin 5000 BID speech assistance appreciated cleared for diet --- advance to [facility] discussed care w/ Dr Ríos -- d/c ICU status, transfer to tele today Subjective no issues overnight. High-flow NC weaned to standard NC today. she was comfortable during the visit. laying nearly flat in bed w/o dyspnea/orthopnea. decent appetite. no new complaints. Review of Systems Constitutional: + fatigue; no fever and no chills Respiratory: no cough, no hemoptysis and no wheezing Cardiovascular: no chest pain, no orthopnea, no paroxysmal nocturnal dyspnea and no edema Gastrointestinal: no abdominal pain, no nausea and no vomiting Physical Exam Constitutional: + frail appearing; no altered mental status ENMT: external ear and nose normal, oropharynx normal (thrush resolved) Respiratory: no respiratory distress Auscultation: + crackles (b/l -- 1/[address] up back - no change; these are "dry" sounding/fine); no wheezes Cardiovascular: Rate/Rhythm: regular rate and regular rhythm Heart Sounds: normal S1 and normal S2; no murmur Vessels: posterior tibial pulses present and dorsalis pedis pulses present; no JVD Extremities: no edema Gastrointestinal (Abdomen): Inspection/Auscultation: normal bowel sounds; abdomen not distended Percussion/Palpation: abdomen soft; abdomen nontender and no hepatosplenomegaly Psychiatric: Orientation: alert and oriented x 3 Results & Data Vital Signs (Past 12 Hours) Vital Signs Temp Pulse Pulse Resp BP Pulse Ox 03/28/19 20:00 60 29 H 131/64 93 03/28/19 19:00 56 L 23 127/67 96 03/28/19 18:00 59 L 23 128/62 94 03/28/19 17:00 61 22 115/63 93 03/28/19 16:00 61 26 H 152/83 H 92 03/28/19 15:54 60 03/28/19 15:00 36.8 C 59 L 56 L 27 H 127/65 96 03/28/19 14:00 57 L 23 113/59 L 96 03/28/19 13:00 59 L 25 H 111/65 96 03/28/19 12:00 36.6 C 64 32 H 116/51 L 91 03/28/19 11:26 64 24 96 03/28/19 11:00 76 111/63 91 03/28/19 10:00 59 L 24 109/46 L 96 03/28/19 09:20 59 L 20 93 03/28/19 09:00 62 21 108/47 L 93 Laboratory Results Laboratory Results - last 24 hr 03/28/19 03/28/19 03/28/19 02:54 02:54 07:30 WBC 14.20 H RBC 3.96 L Hgb 11.3 L Hct 34.2 L MCV 86.4 MCH 28.5 MCHC 33.0 RDW Std Deviation 52.1 H RDW Coeff of Elliot 16.6 H Plt Count 331 MPV 8.6 Immature Gran % (Auto) 1.2 Neut % (Auto) 73.8 Lymph % (Auto) 7.2 [place] % (Auto) 5.0 Eos % (Auto) 12.7 Baso % (Auto) 0.1 Immature Gran # (Auto) 0.17 H Neut # (Auto) 10.48 H Lymph # (Auto) 1.02 L [place] # (Auto) 0.71 H Eos # (Auto) 1.81 H Baso # (Auto) 0.01 Sodium 137 Potassium 4.0 Chloride 97 L Carbon Dioxide 33 H Anion Gap 7.0 BUN 33 H Creatinine 0.97 Est Cr Clr Drug Dosing 37.7 Est GFR ( Amer) 60.9 Est GFR (Non-Af Amer) 52.5 BUN/Creatinine Ratio 33.9 H Glucose 103 H POC Glucose 94 Calcium 9.7 Phosphorus 2.9 Magnesium 2.2 03/28/19 15:13 WBC RBC Hgb Hct MCV MCH MCHC RDW Std Deviation RDW Coeff of Elliot Plt Count MPV Immature Gran % (Auto) Neut % (Auto) Lymph % (Auto) [place] % (Auto) Eos % (Auto) Baso % (Auto) Immature Gran # (Auto) Neut # (Auto) Lymph # (Auto) [place] # (Auto) Eos # (Auto) Baso # (Auto) Sodium 135 L Potassium 4.9 D Chloride 97 L Carbon Dioxide 29 Anion Gap 9.0 BUN 36 H Creatinine 1.10 Est Cr Clr Drug Dosing 32.1 Est GFR ( Amer) 52.3 Est GFR (Non-Af Amer) 45.1 BUN/Creatinine Ratio 32.8 H Glucose 154 H POC Glucose Calcium 9.7 Phosphorus Magnesium PG Care Time/CCT Total # of Minutes Spent Total Time Spent with Patient: Total time spent is greater than 50% in coordination of care (as documented) at patient's floor/unit and/or counseling patient: (1) Traumatic hematoma of abdominal wall with infection Encounter type: subsequent encounter Qualified Code(s): S30.1XXD - Contusion of abdominal wall, subsequent encounter; L08.9 - Local infection of the skin and subcutaneous tissue, unspecified (2) CAD (coronary artery disease) Associated angina: without angina Coronary Disease-Associated Artery/Lesion type: [place] artery [place] vs. transplanted heart: [place] heart Qualified Code(s): I25.10 - Atherosclerotic heart disease of [place] coronary artery without angina pectoris (3) CHF (congestive heart failure) Heart failure chronicity: acute Heart failure type: unspecified Qualified Code(s): I50.9 - Heart failure, unspecified (4) Anemia Anemia type: unspecified type Qualified Code(s): D64.9 - Anemia, unspecified (5) A-fib Atrial fibrillation type: unspecified Qualified Code(s): I48.91 - Unspecified atrial fibrillation (6) Hyperlipidemia Hyperlipidemia type: mixed hyperlipidemia Qualified Code(s): E78.2 - Mixed hyperlipidemia (7) Hypothyroidism Hypothyroidism type: acquired Qualified Code(s): E03.9 - Hypothyroidism, unspecified (8) HTN (hypertension) Hypertension type: essential hypertension Qualified Code(s): I10 - Essential (primary) hypertension (9) Pneumonia Laterality: right Lung location: lower lobe of lung Pneumonia type: due to unspecified organism Qualified Code(s): J18.1 - Lobar pneumonia, unspecified organism (10) Asthma Asthma complication type: uncomplicated Asthma persistence: unspecified Asthma severity: unspecified severity Qualified Code(s): J45.909 - Unspecified asthma, uncomplicated
[2019-03-28] MEDS: FLUOXETINE HCL 20 MG CAP PO SCH (20:37)
[2019-03-28] MEDS: ATORVASTATIN 20 MG TAB PO SCH (20:38)
[2019-03-28] MEDS: MULTIVITAMIN TAB PO SCH (20:38)
[2019-03-28] MEDS: LEVOTHYROXINE SODIUM 25 MCG TABLET PO SCH (20:38)
[2019-03-28] MEDS ORDERED: CHLOROTHIAZIDE SODIUM 500 MG in DEXTROSE 5% 50 ML IV ONE (23:00)
[2019-03-29] MEDS: IMIPENEM/CILASTATIN SODIUM 300 MG in DEXTROSE 5% 100 ML IV SCH ×2 (03:40→10:32)
[2019-03-29 06:40] LABS: BUN Creatinine Ratio 36.5 (10-20); Calcium 9.9 mg/dl (8.5-10.1); Creatinine Clr Calc Pharmacy 33.2 ml/min; Est GFR (African American) 55.9; Est GFR (Non-African American) 48.3; Magnesium 2.6 mg/dl (1.8-2.4); Potassium 3.7 mmol/L (3.5-5.1)
[2019-03-29 06:53] LABS: Thyroid Stimulating Hormone 4.93 uIu/ml (0.300-4.500)
[2019-03-29 07:05] LABS: T4 Free Thyroxine 1.13 ng/dl (0.8-1.6)
[2019-03-29] MEDS: FUROSEMIDE 40 MG TAB PO SCH ×2 (07:54→17:01)
[2019-03-29] MEDS: FERROUS SULFATE 325 MG TAB PO SCH ×2 (07:55→17:01)
[2019-03-29] MEDS: FLUOXETINE HCL 10 MG CAP PO SCH (07:55)
[2019-03-29] MEDS: SACCHAROMYCES BOULARDII 250 MG CAP PO SCH (07:56)
[2019-03-29] MEDS: NYSTATIN SUSP 500,000 U/5 ML UDC PO SCH ×4 (07:56→20:07)
[2019-03-29] MEDS: NYSTATIN POWDER 15GM BTL EXT SCH ×3 (07:56→20:08)
[2019-03-29] MEDS: CALCIUM CARBONATE 1250MG TAB PO SCH ×2 (07:57→20:09)
[2019-03-29] MEDS: CHOLECALCIFEROL 1,000 UNITS TAB PO SCH (07:57)
[2019-03-29] MEDS: CLOPIDOGREL BISULFATE 75 MG TAB PO SCH (07:57)
[2019-03-29] MEDS: predniSONE 20 MG TAB PO SCH (07:58)
[2019-03-29] MEDS: PANTOprazole 40 MG TAB PO SCH (07:58)
[2019-03-29] MEDS: AMIODARONE 200 MG TAB PO SCH (07:59)
[2019-03-29] MEDS: HEPARIN SOD 5,000 UNIT/0.5 ML VIAL SQ SCH ×2 (07:59→20:10)
[2019-03-29] MEDS: FLUTICASONE/VILANTEROL INHALER INH SCH (08:00)
[2019-03-29] MEDS: MAGNESIUM OXIDE 400 MG TAB PO SCH ×2 (09:13→20:10)
[2019-03-29] MEDS: METOPROLOL SUCC 50MG EXT REL TAB PO SCH (09:13)
[2019-03-29] MEDS: DOCUSATE SODIUM 100 MG CAP PO SCH ×2 (09:13→20:14)
--- NOTE | 2019-03-29 11:08 | Cardiology Progress Note ---
Date of Service March 29, 2019 Assessment & Plan (1) Acute respiratory failure with hypoxia: Dramatically improved. Etiology likely includes a degree of volume overload and bilobar pneumonia. (2) Acute on chronic diastolic CHF (congestive heart failure): Transitioned to oral furosemide 40 mg b.i.d.. She will likely need a daily diuretic as an outpatient. (3) PAF (paroxysmal atrial fibrillation): The patient remains in sinus rhythm on amiodarone 200 mg daily. She is considered to be at high risk for long-term oral anticoagulation. We could discuss this further as an outpatient. (4) CAD (coronary artery disease): Nonobstructive coronary artery disease identified on cardiac catheterization in May 2009. (5) HTN (hypertension): Adequate control on current medical regimen. Subjective The patient is resting comfortably in bed without complaints of chest pain, dyspnea, palpitations. She was able to eat breakfast without difficulty. She is now down to 4 liters/minute by nasal cannula. Physical Exam Physical Exam: In general is well-developed well-nourished white female no acute distress. HEENT exam notes a BiPAP mask in place. Neck is supple with full carotid upstrokes. There are no carotid bruits. No jugular venous distention. There is no thyromegaly. Cardiovascular exam reveals a regular rhythm with distant heart sounds. No obvious murmurs. Lungs note bibasilar rales. Abdomen notes a wound VAC in place. Extremities reveal intact radial artery pulses bilaterally. Trace pretibial edema. Results & Data Vital Signs (Past 12 Hours) Vital Signs Temp Pulse Pulse Resp BP Pulse Ox 03/29/19 07:35 54 L 03/29/19 07:20 36.4 C L 54 L 16 156/68 H 95 03/29/19 04:11 36 C L 55 L 18 154/78 H 95 03/29/19 00:00 55 L 03/28/19 23:43 36.4 C L 57 L 18 121/68 92 Diagnostic Findings athletic monitor notes sinus rhythm without evidence of atrial fibrillation. PG Care Time/CCT Total # of Minutes Spent Total Time Spent with Patient: Total time spent is greater than 50% in coordination of care (as documented) at patient's floor/unit and/or counseling patient: 35 min (1) CAD (coronary artery disease) Associated angina: without angina Coronary Disease-Associated Artery/Lesion type: stebbins artery [place] vs. transplanted heart: stebbins heart Qualified Code(s): I25.10 - Atherosclerotic heart disease of stebbins coronary artery without angina pectoris (2) HTN (hypertension) Hypertension type: essential hypertension Qualified Code(s): I10 - Essential (primary) hypertension
--- NOTE | 2019-03-29 12:26 | CT Scan Report ---
CT chest wo con CT DOSE: 340.51 mGycm HISTORY: RESP FAILURE; EXTENSIVE B/L RALES; ILD? PNEUMONITIS TECHNIQUE: Multiaxial CT images of the chest were performed without contrast. A dose lowering techni que was utilized adhering to the principles of ALARA. COMPARISON: Chest 03/28/2019. FINDINGS: Respiratory motion artifact resulting in suboptimal evaluation. The central airways are pat ent. No pleural effusions. No pneumothorax. Multifocal groundglass airspace opacities with interlobul ar septal thickening seen throughout the majority of the lungs. Mild anterior wedging at T3, T5, T7 w ith old compression deformities. No acute fractures identified. Subcentimeter mediastinal lymph nodes do not meet CT criteria for pathologic involvement. No hilar lymphadenopathy. The visualized unenhan ashok liver, spleen, and adrenal glands are unremarkable. There is a large right renal stone likely rep resenting a stable calculus. This is partially visualized on this study. Calcified plaque within the normal caliber thoracic aorta. The heart is enlarged. Subcutaneous right axillary soft tissue nodule measuring 9 mm. This is best seen on image 54. This may represent a superficial lymph node. IMPRESSION: 1. Multifocal groundglass airspace opacities with interlobular septal thickening seen throughout the majority of the lungs. This is nonspecific but could be due to an atypical infection or pulmonary tang ma. Chronic interstitial pneumonitis or pulmonary hemorrhage could also have a similar appearance in the appropriate clinical setting. 2. Additional findings as described above. Electronically signed by: Junior Starr M.D. 03/29/2019 12:25 PM
--- NOTE | 2019-03-29 15:45 | Palliative Care Progress Note ---
Date of Service March 29, 2019 Assessment & Plan (1) Goals of care, counseling/discussion: Goals of care, counseling/discussion: Patient is an 88-year-old female with a past medical history significant for newly diagnosed paroxysmal A. 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 After this hospitalization patient spent 2 weeks at [facility] and was recently discharged on 03/15. Patient had done well in rehab. Patient had a choking episode on 03/16 and continue to have worsening shortness of breath over the next couple days. On 03/18 patient was having severe shortness of breath and was brought to the emergency room. In the emergency room chest x-ray showed cardiomegaly with edema, white count was 16.69 with a hemoglobin of 8.8. Patient was admitted and diuresed-her hemoglobin dropped to 7.5 and she was transfused. Hemoglobin 11.3 today. Patient has required aggressive diuresis- she has now weaned her O2 down to 4 L nasal cannula. Patient had a chest CT scan earlier today-pulmonary consulted Patient awake alert and oriented-able to participate in conversation. Patient named her daughter, Gaby as medical decision-maker on previous visit. Patient's daughter at bedside CODE STATUS-full code, she would not want prolonged intubation or be maintained on life support for an indefinite period of time. Patient's daughter is aware of patient's wishes-has had discussions in the past regarding her living will. Patient had 4 children-the eldest approximately 20 years ago. Her daughter Gaby, is the oldest of the 3 siblings. Patient has another daughter and son- all 3 children live in the [place] area. Patient was never a smoker, however was exposed to secondhand smoke from age [age]. Patient did have asthma as a child. -CODE STATUS-patient wishes to remain a full code, would want to avoid intubation for as long as possible as she does not wish to be sedated and not be able to communicate -Paroxysmal A. fib-this is a relatively new diagnosis-patient was on amiodarone and metoprolol and had an episode of A. fib while on amiodarone-patient converted on Cardizem -now back on amiodarone and metoprolol. Patient is on Plavix for AC -Diastolic CHF-patient is being aggressively diuresed, patient's renal function is remaining steady and tolerating diuresis-now transitioning to p.o. Lasix. Respiratory status improving with aggressive diuresis -Acute respiratory failure with hypoxia-underlying COPD as well as diastolic heart failure and possible pneumonia contributing-patient improving, weaning O2 as tolerated -COPD-continue respiratory support, diuresis, now on her Brio inhaler. Antibiotics discontinued -Abdominal wall abscess-wound VAC in place, wound healing well-wound images reviewed. -Depression-has been doing well on current dose of Prozac -Hypothyroid-on Synthroid Will continue to follow and assist patient and family with medical decision making as needed. (2) PAF (paroxysmal atrial fibrillation): (3) Acute on chronic diastolic CHF (congestive heart failure): (4) Acute respiratory failure with hypoxia: (5) COPD (chronic obstructive pulmonary disease): COPD type: COPD with acute exacerbation Qualified Code(s): J44.1 - Chronic obstructive pulmonary disease with (acute) exacerbation (6) Abscess of abdominal wall: (2) Acute on chronic diastolic CHF (congestive heart failure): Improving with aggressive diuresis-on Lasix IV every 8 hours (3) Acute respiratory failure with hypoxia: Improving, did need O2 titrated upward-on BiPAP nightly, overall appears better (4) COPD (chronic obstructive pulmonary disease): Slowly improving with aggressive pulmonary toilet, titrating O2 as required (5) Abscess of abdominal wall: Healing with wound VAC (6) PAF (paroxysmal atrial fibrillation): Rate well controlled on amiodarone and metoprolol Subjective Patient awake, no acute distress. Patient fatigued from her PT/OT evaluations as well as a CT scan done earlier today. Patient's daughter at bedside Patient's continuing to do well on O2 at 4 L nasal cannula. Review of Systems Review of Systems: Patient denies fever, chills, increased shortness of breath, chest pain or abdominal pain Physical Exam 2 Physical Exam: PE: NAD, fatigued HEENT: EOMI, hearing within normal limits Respirations: Unlabored, good air movement bilaterally CV: Regular rate, no edema Abdomen: Soft, nontender Neuro: Alert and oriented Results & Data Vital Signs (Past 12 Hours) Vital Signs Temp Pulse Pulse Resp BP Pulse Ox 03/29/19 11:29 97.9 F 61 16 126/80 92 03/29/19 07:35 54 L 03/29/19 07:20 97.5 F L 54 L 16 156/68 H 95 03/29/19 04:11 96.8 F L 55 L 18 154/78 H 95 PG Care Time/CCT Total # of Minutes Spent Total Time Spent with Patient: Total time spent is greater than 50% in coordination of care (as documented) at patient's floor/unit and/or counseling patient: Time Spent Attending Total time spent 35 minutes with greater than 50% of the time spent at bedside evaluating patient as well as discussing goals of care with patient and daughter. (1) COPD (chronic obstructive pulmonary disease) COPD type: COPD with acute exacerbation Qualified Code(s): J44.1 - Chronic obstructive pulmonary disease with (acute) exacerbation
--- NOTE | 2019-03-29 17:56 | Pulmonology Progress Note ---
Date of Service March 29, 2019 Assessment & Plan (1) Acute respiratory failure with hypoxia: The patient has a very complex history. She has been treated extensively since this admission for congestive heart failure as well as probable pneumonia. She is now off of all antibiotics and she has not had steroids for several days. In the past 2 or 3 days she has had marked clinical improvement as assessed by both her symptoms as well as a decrease in the need for oxygenation. Her chest x-rays are still significantly abnormal and it is even more prominent on the CAT scan, but when compared with prior x-rays done 5 days ago or more there has been definite improvement. The rales heard on the exam do not sound typical for congestive heart failure. I would suspect she may have had some type of interstitial pneumonitis. In light of her clinical improvement I would simply continue on with your current therapy. It is hoped that she will gradually continue to improve with slow resolution of the x-ray findings as well as increase strength and oxygenation. The patient's , daughter, and son-in-law, were all present as we discussed the situation at length. I also discussed the case with Dr. Trevor Johnson. We discussed whether or not amiodarone toxicity may have been involved. It seems less likely particularly in light of the fact she has improved clinically in the past 5 days without stopping the amiodarone. Also the total dose of amiodarone she has had since she started has not been all that much considering the brevity of her treatment. We will continue to follow the patient. I did spend 40 minutes with this patient and her family and more than 50% was involving counseling and coordinating care. (2) Acute on chronic diastolic CHF (congestive heart failure): (3) Pneumonia: Laterality: right Lung location: lower lobe of lung Pneumonia type: due to unspecified organism Qualified Code(s): J18.1 - Lobar pneumonia, unspecified organism (4) Asthma: Asthma severity: unspecified severity Asthma persistence: unspe cified Asthma complication type: uncomplicated Qualified Code(s): J45.909 - Unspecified asthma, uncomplicated (5) Obstructive sleep apnea, adult: Subjective Pulmonary reevaluation is requested by Dr. Johnson. Patient has an extensive history she originally was hospitalized from February 06, 2019 until 03/02/2019. She had a large abdominal wall hematoma that became infected with E. coli. It subsequently ruptured peer the patient had suffered a fall in December. She had been on aspirin and Plavix which likely contributed to the hematoma. During that extensive hospital stay she did not have any significant respiratory problems. Following discharge she went to [facility] for 2 weeks for rehab. Subsequently she was home for only 2 days when she was readmitted due to shortness of breath and wheezing. She began to develop a little more shortness of breath about 3 days before leaving [facility]. She has a history of asthma, and she was requesting her Ventolin rescue inhaler much more than normal. She did have an episode at home where she choked on a piece of chicken. There was some concern about aspiration possibly. In light of the increased shortness of breath she was brought to the emergency room on March 18. She was found to be in respiratory failure with severe hypoxia. The chest x-ray showed mixed alveolar and interstitial infiltrates. She was known to have a fairly normal ejection fraction and thus it was suspected she might have diastolic CHF. She was also treated as if she had pneumonia. She was started on Zosyn and doxycycline. Para she diuresed very well. Her symptoms did not entirely resolve however. She has had persistent crackles on exam and persistent infiltrates on her x- rays. The patient was transferred to the ICU on March 22 because of worsening shortness of breath. She did have rapid atrial fibrillation. She had to be on amiodarone drip for about 36 hours. She first had the atrial fibrillation during her stay in February. She has been on oral amiodarone since then, approximately 1 month ago. Most recently the patient has been slowly improving. As recently as yesterday however she was still on high flow oxygen. She has a history of sleep apnea and she wears CPAP at home. She has been on BiPAP here at times but recently was switched back to CPAP. Today her oxygenation is improved and she is now down to 3 L nasal cannula. The patient is not having much cough. There has been very little sputum production. She denies chest pains. She denies chills fevers or sweats. Her daughter was with her during this evaluation and she answered many of the questions. The patient did have a CAT scan of the chest done today. This showed multifocal groundglass air space opacities with interlobular septal thickening seen throughout the majority of the lungs. The patient's energy level remains low. She is lethargic at times but her daughter states this has improved a lot. In general her abdominal symptoms have improved. She still has a wound VAC in place. The remainder of the review of systems is negative. 10 systems reviewed. Review of Systems Review of Systems: As noted in history of present illness. Physical Exam Physical Exam: The patient is a pleasant 88-year-old female who was cooperative and oriented. She was a bit sluggish but awakened more as the exam went on. She was able to answer questions appropriately. Temperature is 36.5. I did not find evidence of any significant fevers. Pupils were reactive. Nares clear. Mouth exam showed mucous membranes were somewhat dry. Palpation of the neck reveals no lymph nodes. Cardiac rate 59/min. Rhythm was regular. Blood pressure 118/68. The chest showed fairly normal expansion and development. She does have a kyphosis. Respiratory rate 18 breaths/min. This was not labored. Auscultation reveals dry rales posteriorly greater on the right than the left. It involves mainly mid and lower lung juarez. Saturation at the time of my exam 92% on 3 L nasal cannula. Inspection of the abdomen reveals multiple scars from prior surgeries. Wound VAC was in place. Bowel sounds were normal. There was no tenderness to palpation, masses, or organomegaly. Extremities showed no cyanosis clubbing or edema. Results & Data Vital Signs (Past 12 Hours) Vital Signs Temp Pulse Pulse Pulse Resp BP BP 03/29/19 16:00 36.5 C 59 L 18 118/68 03/29/19 11:29 36.6 C 61 16 126/80 03/29/19 07:35 54 L 03/29/19 07:20 36.4 C L 54 L 16 156/68 H Pulse Ox 03/29/19 16:00 96 03/29/19 11:29 92 03/29/19 07:35 03/29/19 07:20 95 Laboratory Results Most recent CBC was yesterday. White count was 14.2 with hemoglobin 11.3 and platelets 331,000. The patient reportedly has had 9 transfusions this summer. Electrolytes today show sodium 137 potassium 3.7 chloride 100 bicarb 30. BUN 38 with creatinine 1.04. Blood sugar 149. proBNP on 03/24/2019 was 16,948. On March 22 the proBNP had been 23,416. Diagnostic Findings I have reviewed numerous x-rays done during this hospital stay. Previously mentioned was the CAT scan. She had a chest x-ray done 814 that again showed bilateral airspace opacities. These would be greater on the right than the left. When comparing back with the x-ray done 03/23/2019 there clearly has been improvement although it is still abnormal. PG Care Time/CCT Total # of Minutes Spent Total Time Spent with Patient: Total time spent is greater than 50% in coordination of care (as documented) at patient's floor/unit and/or counseling patient:
[2019-03-29] MEDS: ATORVASTATIN 20 MG TAB PO SCH (20:09)
[2019-03-29] MEDS: LEVOTHYROXINE SODIUM 25 MCG TABLET PO SCH (20:09)
[2019-03-29] MEDS: MULTIVITAMIN TAB PO SCH (20:09)
[2019-03-29] MEDS: FLUOXETINE HCL 20 MG CAP PO SCH (20:10)
--- NOTE | 2019-03-29 22:21 | Hospitalist Progress Note ---
Date of Service March 29, 2019 Assessment & Plan (1) Acute respiratory failure with hypoxia: Ongoing but slowly improving. Continues with NC O2 requirement despite 10+ days of aggressive diuresis, broad- spectrum IV antibiotics, steroids, etc. With that said her O2 requirement has improved in the last week. Likely combination of acute diastolic CHF and b/l pneumonia. COPD exacerbation was likely also present earlier this stay - treated previously with steroids. I cannot rule out another concomitant process contributing to current clinical state. CT chest done yesterday with diffuse infiltrates. I have asked Dr Lowe from pulmonary to see in consult. Doubt pulmonary toxicity from amiodarone - this was initiated on 02/27/19 - rather fast for development of such. Stop IV abx today - received 10+ days of such. Continue NC O2 during day with night-time CPAP. (2) CHF (congestive heart failure): Acute diastolic. Echo 02/12/19 with preserved EF. Possible etiologies for her decompensated diastolic CHF -- uncontrolled a.fib, lack of diuretic (was on HCTZ when she left [facility]; it was apparently d/c while at rehab), dietary issues, etc. No evidence of ischemia. Net negative 9+ liters since admission. Appreciate Dr Horner's recommendations. Continue beta david (metoprolol tartrate 50mg BID). IV diuretics stopped; transitioned to PO lasix. (3) Pneumonia: Bilateral. Has been on IV antibiotics since ER presentation (has received 10+ days of IV abx therapy -- broad spectrum). Will stop imipenem today. Previous blood cx's were negative. see discussion above in acute resp failure. (4) Asthma: with exacerbation at admission. received about 5 days of IV steroids early in admission. prednisone restarted by Dr Ríos 2 days ago. continue this. await additional recommendations from Dr Lowe. (5) A-fib: During her previous prolonged hospitalization she had 2 episodes of PAF with one lasting over 24 hours. She probably had runs of PAF outside the hospital. She had additional PAF runs during this hospital stay. Remains on amiodarone 200mg daily and metoprolol 50mg BID. Appreciate cardiology consultation. No anticoagulation at this time. No PAF in several days. (6) CAD (coronary artery disease): History of such. No ischemic symptoms at this time. Cont BB, statin, plavix. (7) Chronic kidney disease, stage 3a: Cr stable today. Repeat bmp am. (8) HTN (hypertension): Cont home medications. Stable. (9) Hyperlipidemia: Cont statin. (10) Hypothyroidism: TSH mildly elevated at presentation. Takes synthroid 25mcg daily. Repeat TFTs today acceptable. (11) Obstructive sleep apnea, adult: Cont home CPAP unit at . (12) Traumatic hematoma of abdominal wall with infection: Had spontaneous rupture of large intra-abdominal hematoma in February during her prolonged stay. The hematoma was due to a prior fall. Following rupture Dr Pablo performed I/D in the OR. Cultures showed e.coli. She had been on augmentin at [facility] and at home. The abdominal wound has improved considerably with Wound Vac. Would care continues to follow and change dressings M/W/F. Appreciate Dr Koroma's consultation. (13) Anemia: H/H cont to be stable. Cont Ferrous Sulfate 325mg BID. (14) Transient ischemic attack: Had TIA during prior admission. Also with h/o CVA many years ago. On plavix for secondary prevention. Ideally should be on anticoagulation because of PAF but this has been deferred. (15) Acute hypokalemia: resolved. (16) Candidiasis of mouth and esophagus: thrush. resolved. nystatin 5cc po ac/hs for a couple more days then stop. (17) DVT prophylaxis: heparin 5000 BID dispo planning await additional recs from Dr Lowe daughter updated at bedside Subjective patient sleepy today. denied any complaints. breathing better than previous. no cough. appetite ok. daughter at bedside. Review of Systems Constitutional: + fatigue; no fever and no anorexia Respiratory: no cough and no dyspnea Cardiovascular: no chest pain Gastrointestinal: no abdominal pain, no nausea and no vomiting Physical Exam Constitutional: + frail appearing; no altered mental status ENMT: external ear and nose normal, oropharynx normal (thrush resolved) Respiratory: Auscultation: + crackles (b/l, 1/[address] up back - these are "dry" sounding/fine; mildly improved today); no wheezes Cardiovascular: Rate/Rhythm: regular rate and regular rhythm Heart Sounds: normal S1 and normal S2; no murmur Vessels: posterior tibial pulses present and dorsalis pedis pulses present; no JVD Extremities: no edema Gastrointestinal (Abdomen): Inspection/Auscultation: normal bowel sounds; abdomen not distended Percussion/Palpation: abdomen soft; abdomen nontender and no hepatosplenomegaly Skin: abdominal woundvac in place; multiple scars on abdominal wall; no erythema Psychiatric: Orientation: alert and oriented x 3 Results & Data Vital Signs (Past 12 Hours) Vital Signs Temp Pulse Pulse Resp BP BP Pulse Ox 03/29/19 19:34 36.3 C L 55 L 21 126/70 96 03/29/19 17:00 18 97 03/29/19 16:00 36.5 C 59 L 18 118/68 96 03/29/19 11:29 36.6 C 61 16 126/80 92 Laboratory Results Laboratory Results - last 24 hr 03/29/19 03/29/19 03/29/19 05:41 05:41 07:32 Sodium 137 Potassium 3.7 D Chloride 100 Carbon Dioxide 30 Anion Gap 8.0 BUN 38 H Creatinine 1.04 Est Cr Clr Drug Dosing 33.2 Est GFR ( Amer) 55.9 Est GFR (Non-Af Amer) 48.3 BUN/Creatinine Ratio 36.5 H Glucose 92 POC Glucose 79 Calcium 9.9 Magnesium 2.6 H TSH 4.930 H Free T4 1.13 03/29/19 03/29/19 11:46 20:25 Sodium Potassium Chloride Carbon Dioxide Anion Gap BUN Creatinine Est Cr Clr Drug Dosing Est GFR ( Amer) Est GFR (Non-Af Amer) BUN/Creatinine Ratio Glucose POC Glucose 149 H 120 H Calcium Magnesium TSH Free T4 PG Care Time/CCT Total # of Minutes Spent Total Time Spent with Patient: Total time spent is greater than 50% in coordination of care (as documented) at patient's floor/unit and/or counseling patient: (1) Traumatic hematoma of abdominal wall with infection Encounter type: subsequent encounter Qualified Code(s): S30.1XXD - Contusion of abdominal wall, subsequent encounter; L08.9 - Local infection of the skin and subcutaneous tissue, unspecified (2) CAD (coronary artery disease) Associated angina: without angina Coronary Disease-Associated Artery/Lesion type: [place] artery [place] vs. transplanted heart: [place] heart Qualified Code(s): I25.10 - Atherosclerotic heart disease of [place] coronary artery without angina pectoris (3) CHF (congestive heart failure) Heart failure chronicity: acute Heart failure type: unspecified Qualified Code(s): I50.9 - Heart failure, unspecified (4) Anemia Anemia type: unspecified type Qualified Code(s): D64.9 - Anemia, unspecified (5) A-fib Atrial fibrillation type: unspecified Qualified Code(s): I48.91 - Unspecified atrial fibrillation (6) Hyperlipidemia Hyperlipidemia type: mixed hyperlipidemia Qualified Code(s): E78.2 - Mixed hyperlipidemia (7) Hypothyroidism Hypothyroidism type: acquired Qualified Code(s): E03.9 - Hypothyroidism, unspecified (8) HTN (hypertension) Hypertension type: essential hypertension Qualified Code(s): I10 - Essential (primary) hypertension (9) Pneumonia Laterality: right Lung location: lower lobe of lung Pneumonia type: due to unspecified organism Qualified Code(s): J18.1 - Lobar pneumonia, unspecified organism (10) Asthma Asthma complication type: uncomplicated Asthma persistence: unspecified Asthma severity: unspecified severity Qualified Code(s): J45.909 - Unspecified asthma, uncomplicated
[2019-03-30 06:06] LABS: Hematocrit (blood only) 33.6 % (37-47); Hemoglobin 11.1 g/dL (12.0-16.0); Mean Corpuscular Volume 84.8 fL (80-100); Mean Platelet Volume 8.6 fL (7.4-10.4); Platelet Count 339 K/uL (130-400); RDW Coefficient of Variation 16.6 % (11.5-14.5); RDW Standard Deviation 51.9 fL (36.4-46.3); Red Blood Count 3.96 M/uL (4.2-5.4); White Blood Count 12.92 K/uL (4.8-10.8)
[2019-03-30 06:41] LABS: BUN Creatinine Ratio 43.8 (10-20); Calcium 9.5 mg/dl (8.5-10.1); Creatinine Clr Calc Pharmacy 32.7 ml/min; Est GFR (African American) 53.5; Est GFR (Non-African American) 46.1; Potassium 3.7 mmol/L (3.5-5.1)
[2019-03-30] MEDS: FLUTICASONE/VILANTEROL INHALER INH SCH (10:19)
[2019-03-30] MEDS: FERROUS SULFATE 325 MG TAB PO SCH ×2 (10:20→17:44)
[2019-03-30] MEDS: AMIODARONE 200 MG TAB PO SCH (10:21)
[2019-03-30] MEDS: HEPARIN SOD 5,000 UNIT/0.5 ML VIAL SQ SCH ×2 (10:22→21:05)
[2019-03-30] MEDS: SACCHAROMYCES BOULARDII 250 MG CAP PO SCH (10:22)
[2019-03-30] MEDS: FUROSEMIDE 40 MG TAB PO SCH ×2 (10:23→17:33)
[2019-03-30] MEDS: MAGNESIUM OXIDE 400 MG TAB PO SCH ×2 (10:23→21:05)
[2019-03-30] MEDS: CALCIUM CARBONATE 1250MG TAB PO SCH ×2 (10:24→21:02)
[2019-03-30] MEDS: NYSTATIN SUSP 500,000 U/5 ML UDC PO SCH ×4 (10:24→21:05)
[2019-03-30] MEDS: predniSONE 20 MG TAB PO SCH (10:25)
[2019-03-30] MEDS: PANTOprazole 40 MG TAB PO SCH (10:25)
[2019-03-30] MEDS: CLOPIDOGREL BISULFATE 75 MG TAB PO SCH (10:25)
[2019-03-30] MEDS: CHOLECALCIFEROL 1,000 UNITS TAB PO SCH (10:26)
[2019-03-30] MEDS: FLUOXETINE HCL 10 MG CAP PO SCH (10:26)
[2019-03-30] MEDS: METOPROLOL SUCC 50MG EXT REL TAB PO SCH (10:27)
[2019-03-30] MEDS: DOCUSATE SODIUM 100 MG CAP PO SCH ×2 (10:33→21:03)
[2019-03-30] MEDS: NYSTATIN POWDER 15GM BTL EXT SCH ×3 (10:33→21:09)
--- NOTE | 2019-03-30 14:47 | Pulmonology Progress Note ---
Date of Service March 30, 2019 Assessment & Plan (1) Acute respiratory failure with hypoxia: The patient seems to be stable. She still has rales heard posteriorly but overall her clinical course is as good or better than yesterday. Would continue to try and increase her activity level. She is getting OT and PT. (2) Acute on chronic diastolic CHF (congestive heart failure): (3) Pneumonia: Laterality: right Lung location: lower lobe of lung Pneumonia type: due to unspecified organism Qualified Code(s): J18.1 - Lobar pneumonia, unspecified organism (4) Asthma: Asthma severity: unspecified severity Asthma persistence: unspecified Asthma complication type: uncomplicated Qualified Code(s): J45.909 - Unspecified asthma, uncomplicated Subjective The patient is having a pretty good day today. Her family was with her. They say her appetite is much better today. She did walk some with physical therapy and tolerated it pretty well. Her saturations however were down to 86% soon as she was done with the walk. Overall she feels better today. There is been no setbacks today Physical Exam Physical Exam: The patient is an 88-year-old female who looks a bit tired. She was cooperative alert and oriented. Pupils were reactive. Nares clear. Mouth exam unremarkable. No lymph nodes palpable. Cardiac rate 62/min. The rhythm was somewhat irregular. Blood pressure 114/58. Auscultation the lung juarez again revealed dry rales posteriorly bilaterally. They sound similar in location and character to yesterday. Saturation 97% on 3 L. Extremities showed no cyanosis clubbing or edema. Results & Data Vital Signs (Past 12 Hours) Vital Signs Temp Pulse Pulse Resp BP Pulse Ox 03/30/19 12:00 36.3 C L 62 18 114/58 L 97 03/30/19 07:10 36.3 C L 51 L 19 175/72 H 98 03/30/19 03:39 36.4 C L 50 L 22 101/49 L 95 Laboratory Results White count today is 12.92. Hemoglobin 11.1. Platelets 339,000. Electrolytes show sodium 137 potassium 3.7 chloride 98 bicarb 29. BUN is elevated at 47 with creatinine 1.08. Prior BUN was 38 and creatinine was 1.04. PG Care Time/CCT Total # of Minutes Spent Total Time Spent with Patient: Total time spent is greater than 50% in coordination of care (as documented) at patient's floor/unit and/or counseling patient:
--- NOTE | 2019-03-30 20:58 | Hospitalist Progress Note ---
Date of Service March 30, 2019 Assessment & Plan (1) Acute respiratory failure with hypoxia: Continues to improve. O2 has been weaned in the last several days (had been on [place] NC, now down to 3 l NC). Likely combination of acute diastolic CHF and b/l pneumonia. COPD exacerbation was likely also present earlier this stay - treated previously with steroids. I cannot rule out another concomitant process contributing to current clinical state. CT chest done in the last [address] diffuse [address] Lowe evaluated the patient - amiodarone toxicity not suspected. Amiodarone was initiated on 02/27/19 - rather fast for development of such. Received 10+ days of broad-spectrum IV abx - these have been d/c. Received 10 days of aggressive IV diuresis - IV diuretics stopped. Today she looks volume depleted on exam, urine is concentrated, and BUN/Cr are up slightly. HOLD PO LASIX. Repeat BMP am. Continue 40mg prednisone; defer wean to pulmonary. Continue NC O2 during day with night-time CPAP. (2) CHF (congestive heart failure): Acute diastolic. Echo 02/12/19 with preserved EF. Possible etiologies for her decompensated diastolic CHF -- uncontrolled a.fib, lack of diuretic (was on HCTZ when she left [facility]; it was apparently d/c while at rehab), dietary issues, etc. No evidence of ischemia. Net negative 9+ liters since admission. Appreciate Dr Horner's recommendations. Continue beta david (metoprolol tartrate 50mg BID). IV diuretics stopped; transitioned to PO lasix. But holding latter due to volume contraction. (3) Pneumonia: Bilateral. Had received IV antibiotics since ER presentation. These were stopped this week after 10+ days of therapy. Previous blood cx's were negative. see discussion above in acute resp failure. cannot rule out that her pneumonia was aspiration. speech attempted to perform video swallow today; there were equipment issues; video test rescheduled for Tuesday. (4) Asthma: with exacerbation at admission. received about 5 days of IV steroids early in admission. steroids stopped, then prednisone restarted by Dr Ríos on 03/28/19 due to lingering NC O2 requirement and slow clinical improvement. Dr Lowe has seen. recommends continuing current care plan. perhaps wean prednisone starting this weekend. (5) A-fib: During her previous prolonged hospitalization she had 2 episodes of PAF with one lasting over 24 hours. She probably had runs of PAF outside the hospital. She had additional PAF runs during this hospital stay. Remains on amiodarone 200mg daily and metoprolol 50mg BID. Appreciate cardiology consultation. No anticoagulation at this time. No PAF in several days. (6) CAD (coronary artery disease): History of such. No ischemic symptoms at this time. Cont BB, statin, plavix. (7) Chronic kidney disease, stage 3a: Cr slightly higher last 2 days in context of aggressive diuresis. Placing PO lasix on hold due to volume contraction. Repeat bmp am. (8) HTN (hypertension): Cont home medications. Stable. (9) Hyperlipidemia: Cont statin. (10) Hypothyroidism: TSH mildly elevated at presentation. Takes synthroid 25mcg daily. Repeat TFTs yesterday acceptable. No change at this time in synthroid dose. (11) Obstructive sleep apnea, adult: Cont home CPAP unit at . (12) Traumatic hematoma of abdominal wall with infection: Had spontaneous rupture of large intra-abdominal hematoma in February during her prolonged stay. The hematoma was due to a prior fall. The hematoma became infected. Following rupture Dr Pablo performed I/D in the OR. Cultures showed e.coli. She had been on augmentin at [facility] and at home. The abdominal wound has improved considerably with Wound Vac. Would care continues to follow and change dressings M/W/F. Appreciate Dr Koroma's consultation. She has received close to 6 weeks of IV/PO antibiotics since February 06 (date of admission during prior hospital stay). She is now off all antibiotics. (13) Anemia: H/H cont to be stable. Cont Ferrous Sulfate 325mg BID. (14) Transient ischemic attack: Had TIA during prior admission. Also with h/o CVA many years ago. On plavix for secondary prevention. Ideally should be on anticoagulation because of PAF but this has been deferred due to prior intra-abdominal hematoma, etc. (15) Acute hypokalemia: resolved. (16) Candidiasis of mouth and esophagus: thrush. resolved. can likely stop the nystatin this weekend. (17) Dysphagia: spoke with speech today. video swallow rescheduled for this Tuesday if still hospitalized. if she goes home this weekend it can be done as outpatient. the video swallow was being done just to be sure no aspiration issues (and in light of pulmonary issues). appreciate speech therapy recs. remains on heart healthy diet (18) Osteoarthritis of right knee: voltaren gel qid (19) DVT prophylaxis: heparin 5000 BID /daughter updated at bedside today. family again states they would prefer for her to go home rather than back to rehab. home this weekend with home health, home PT, home OT?? probably needs 2-step prior to d/c Subjective patient reports she feels good , daughter at bedside - they confirm she's had a "good day" she worked well with PT - ambulated to hallway ate well no areas of pain denies cough or dyspnea tele w/o a.fib overnight urine quite concentrated in the Tera russell family still hoping for d/c home rather than d/c to rehab no new complaints Review of Systems Constitutional: no fever Respiratory: no cough, no chest congestion, no dyspnea, no dyspnea on exertion and no sputum production Cardiovascular: no chest pain Gastrointestinal: no abdominal pain, no nausea and no vomiting Musculoskeletal: + joint pain (right knee - chronic) Physical Exam Constitutional: + frail appearing; no acute distress and no altered mental status ENMT: Mouth: + dry oral mucous membranes (thrush resolved as well) Respiratory: no respiratory distress Auscultation: + crackles (dry, fine; slightly improved today; bases primarily, R>L); no wheezes Cardiovascular: Rate/Rhythm: regular rate and regular rhythm Heart Sounds: normal S1 and normal S2; no murmur Vessels: posterior tibial pulses present and dorsalis pedis pulses present; no JVD Extremities: no edema Gastrointestinal (Abdomen): Inspection/Auscultation: normal bowel sounds; abdomen not distended Percussion/Palpation: abdomen soft; abdomen nontender and no hepatosplenomegaly Skin: woundvac in place, abdominal wall; multiple abdominal wall scars; no er ythema Psychiatric: Orientation: alert and oriented x 3 Results & Data Vital Signs (Past 12 Hours) Vital Signs Temp Pulse Pulse Pulse Resp BP Pulse Ox 03/30/19 19:39 36.4 C L 63 18 134/71 92 03/30/19 17:07 60 03/30/19 15:00 36.5 C 59 L 20 124/72 94 03/30/19 12:00 36.3 C L 62 18 114/58 L 97 Laboratory Results Laboratory Results - last 24 hr 03/30/19 03/30/19 03/30/19 05:55 05:55 07:25 WBC 12.92 H RBC 3.96 L Hgb 11.1 L Hct 33.6 L MCV 84.8 MCH 28.0 MCHC 33.0 RDW Std Deviation 51.9 H RDW Coeff of Elliot 16.6 H Plt Count 339 MPV 8.6 Sodium 137 Potassium 3.7 Chloride 98 Carbon Dioxide 29 Anion Gap 10.0 BUN 47 H Creatinine 1.08 Est Cr Clr Drug Dosing 32.7 Est GFR ( Amer) 53.5 Est GFR (Non-Af Amer) 46.1 BUN/Creatinine Ratio 43.8 H Glucose 82 POC Glucose 98 Calcium 9.5 03/30/19 03/30/19 03/30/19 12:14 16:54 20:19 WBC RBC Hgb Hct MCV MCH MCHC RDW Std Deviation RDW Coeff of [place] Plt Count MPV Sodium Potassium Chloride Carbon Dioxide Anion Gap BUN Creatinine Est Cr Clr Drug Dosing Est GFR ( Amer) Est GFR (Non-Af Amer) BUN/Creatinine Ratio Glucose POC Glucose 123 H 163 H 178 H Calcium PG Care Time/CCT Total # of Minutes Spent Total Time Spent with Patient: Total time spent is greater than 50% in coordination of care (as documented) at patient's floor/unit and/or counseling patient: (1) Traumatic hematoma of abdominal wall with infection Encounter type: subsequent encounter Qualified Code(s): S30.1XXD - Contusion of abdominal wall, subsequent encounter; L08.9 - Local infection of the skin and subcutaneous tissue, unspecified (2) CAD (coronary artery disease) Associated angina: without angina Coronary Disease-Associated Artery/Lesion type: [place] artery [place] vs. transplanted heart: [place] heart Qualified Code(s): I25.10 - Atherosclerotic heart disease of [place] coronary artery without angina pectoris (3) CHF (congestive heart failure) Heart failure chronicity: acute Heart failure type: unspecified Qualified Code(s): I50.9 - Heart failure, unspecified (4) Anemia Anemia type: unspecified type Qualified Code(s): D64.9 - Anemia, unspecified (5) A-fib Atrial fibrillation type: unspecified Qualified Code(s): I48.91 - Unspecified atrial fibrillation (6) Hyperlipidemia Hyperlipidemia type: mixed hyperlipidemia Qualified Code(s): E78.2 - Mixed hyperlipidemia (7) Hypothyroidism Hypothyroidism type: acquired Qualified Code(s): E03.9 - Hypothyroidism, unspecified (8) HTN (hypertension) Hypertension type: essential hypertension Qualified Code(s): I10 - Essential (primary) hypertension (9) Pneumonia Laterality: right Lung location: lower lobe of lung Pneumonia type: due to unspecified organism Qualified Code(s): J18.1 - Lobar pneumonia, unspecified organism (10) Asthma Asthma complication type: uncomplicated Asthma persistence: unspecified Asthma severity: unspecified severity Qualified Code(s): J45.909 - Unspecified asthma, uncomplicated (11) Dysphagia Dysphagia type: unspecified Qualified Code(s): R13.10 - Dysphagia, unspecified (12) Osteoarthritis of right knee Osteoarthritis type: primary Qualified Code(s): M17.11 - Unilateral primary osteoarthritis, right knee
[2019-03-30] MEDS: ATORVASTATIN 20 MG TAB PO SCH (21:01)
[2019-03-30] MEDS: LEVOTHYROXINE SODIUM 25 MCG TABLET PO SCH (21:03)
[2019-03-30] MEDS: FLUOXETINE HCL 20 MG CAP PO SCH (21:04)
[2019-03-30] MEDS: MULTIVITAMIN TAB PO SCH (21:04)
[2019-03-31 07:18] LABS: BUN Creatinine Ratio 61.4 (10-20); Est GFR (Non-African American) 55.3; Potassium 3.9 mmol/L (3.5-5.1)
[2019-03-31] MEDS: HEPARIN SOD 5,000 UNIT/0.5 ML VIAL SQ SCH ×2 (09:40→20:50)
[2019-03-31] MEDS: FLUTICASONE/VILANTEROL INHALER INH SCH (09:46)
[2019-03-31] MEDS: FERROUS SULFATE 325 MG TAB PO SCH ×2 (09:47→17:20)
[2019-03-31] MEDS: DOCUSATE SODIUM 100 MG CAP PO SCH ×2 (09:47→20:48)
[2019-03-31] MEDS: AMIODARONE 200 MG TAB PO SCH (09:47)
[2019-03-31] MEDS: SACCHAROMYCES BOULARDII 250 MG CAP PO SCH (09:48)
[2019-03-31] MEDS: MAGNESIUM OXIDE 400 MG TAB PO SCH ×2 (09:48→20:54)
[2019-03-31] MEDS: NYSTATIN SUSP 500,000 U/5 ML UDC PO SCH ×4 (09:49→20:50)
[2019-03-31] MEDS: CALCIUM CARBONATE 1250MG TAB PO SCH ×2 (09:50→20:51)
[2019-03-31] MEDS: CLOPIDOGREL BISULFATE 75 MG TAB PO SCH (09:50)
[2019-03-31] MEDS: predniSONE 20 MG TAB PO SCH (09:52)
[2019-03-31] MEDS: PANTOprazole 40 MG TAB PO SCH (09:53)
[2019-03-31] MEDS: FLUOXETINE HCL 10 MG CAP PO SCH (09:53)
[2019-03-31] MEDS: METOPROLOL SUCC 50MG EXT REL TAB PO SCH (09:54)
[2019-03-31] MEDS: CHOLECALCIFEROL 1,000 UNITS TAB PO SCH (09:54)
[2019-03-31] MEDS: NYSTATIN POWDER 15GM BTL EXT SCH ×3 (09:55→20:52)
[2019-03-31] MEDS: DICLOFENAC SOD 1% GEL 100 GM TUBE EXT SCH ×4 (10:01→20:49)
--- NOTE | 2019-03-31 11:20 | Cardiology Progress Note ---
Date of Service March 31, 2019 Assessment & Plan (1) Acute respiratory failure with hypoxia: Resolved. Etiology at time of presentation likely secondary to volume overload and bilobar pneumonia. (2) Acute on chronic diastolic CHF (congestive heart failure): Transitioned to oral furosemide which is currently on hold today. She will likely need a daily diuretic as an outpatient (HCTZ verses furosemide). (3) PAF (paroxysmal atrial fibrillation): The patient remains in sinus rhythm on amiodarone 200 mg daily. She is considered to be at high risk for long-term oral anticoagulation. We could discuss this further as an outpatient. (4) CAD (coronary artery disease): Nonobstructive coronary artery disease identified on cardiac catheterization in May 2009. (5) HTN (hypertension): Adequate control on current medical regimen. Subjective The patient is resting comfortably in bed without complaints of chest pain or dyspnea. Her appetite has greatly improved. Family is at the bedside. Physical Exam Physical Exam: In general is well-developed well-nourished white female no acute distress. HEENT exam notes a BiPAP mask in place. Neck is supple with full carotid upstrokes. There are no carotid bruits. No jugular venous distention. There is no thyromegaly. Cardiovascular exam reveals a regular rhythm with distant heart sounds. No obvious murmurs. Lungs note bibasilar rales. Abdomen notes a wound VAC in place. Extremities reveal intact radial artery pulses bilaterally. Trace pretibial edema. Results & Data Vital Signs (Past 12 Hours) Vital Signs Temp Pulse Pulse Resp BP Pulse Ox 03/31/19 07:40 36.8 C 53 L 18 166/67 H 91 03/31/19 05:29 54 L 03/31/19 04:00 36.4 C L 83 20 188/77 H 97 PG Care Time/CCT Total # of Minutes Spent Total Time Spent with Patient: Total time spent is greater than 50% in coordination of care (as documented) at patient's floor/unit and/or counseling patient: (1) CAD (coronary artery disease) Associated angina: without angina Coronary Disease-Associated Artery/Lesion type: [place] artery [place] vs. transplanted heart: [place] heart Qualified Code(s): I25.10 - Atherosclerotic heart disease of [place] coronary artery without angina pectoris (2) HTN (hypertension) Hypertension type: essential hypertension Qualified Code(s): I10 - Essential (primary) hypertension
--- NOTE | 2019-03-31 11:46 | Pulmonology Progress Note ---
Date of Service March 31, 2019 Assessment & Plan (1) Acute respiratory failure with hypoxia: Clinically the patient is much improved. Her oxygen needs are less and her symptoms are better. It is still somewhat disturbing that she has prominent rales heard bilaterally. Thus it is not entirely clear what the situation is and how this will proceed. She has been on 40 mg daily of prednisone. Suggest changing this to 30 mg daily with a very gradual taper. (2) Acute on chronic diastolic CHF (congestive heart failure): (3) Pneumonia: Ultimately will need a follow-up chest x-ray. Laterality: right Lung location: lower lobe of lung Pneumonia type: due to unspecified organism Qualified Code(s): J18.1 - Lobar pneumonia, unspecified organism (4) Asthma: Continue with routine asthma meds which includes Breo Ellipta and neb treatments as needed.. Asthma severity: unspecified severity Asthma persistence: unspecified Asthma complication type: uncomplicated Qualified Code(s): J45.909 - Unspecified asthma, uncomplicated Subjective The patient is not complaining of any shortness of breath or cough. Her family was with her. They acknowledge she seems to be doing well. She is eating better. Her oxygen has been cut back to 2 L nasal cannula and she is maintaining good saturations. Physical Exam Physical Exam: The patient is a pleasant 88-year-old female who looked comfo rtable today. She seemed more energetic than prior. It is however still the morning and this may have something to do with it. Para pupils were reactive to light. Nares clear. Mouth exam shows no significant abnormalities. No lymph nodes palpable. Cardiac rate 53/min. Rhythm regular. Blood pressure 166/67. Auscultation of the lung feels still reveal rales posteriorly bilaterally. These are unchanged. Respiratory rate 18. Saturation done by myself was 94% on 2 L nasal cannula. Temperature 36.8. Extremities showed no cyanosis clubbing or edema. Results & Data Vital Signs (Past 12 Hours) Vital Signs Temp Pulse Pulse Resp BP Pulse Ox 03/31/19 07:40 36.8 C 53 L 18 166/67 H 91 03/31/19 05:29 54 L 03/31/19 04:00 36.4 C L 83 20 188/77 H 97 Laboratory Results Blood sugar today 102. Sodium was 137 potassium 3.9 chloride 99 bicarb 32. BUN was 57 with creatinine 0.93. Compared with one day earlier the BUN is higher but the creatinine is lower. PG Care Time/CCT Total # of Minutes Spent Total Time Spent with Patient: Total time spent is greater than 50% in coordination of care (as documented) at patient's floor/unit and/or counseling patient:
[2019-03-31] MEDS ORDERED: HydrALAZINE 10 MG TAB PO PRN (14:30)
--- NOTE | 2019-03-31 14:43 | Hospitalist Progress Note ---
Date of Service March 31, 2019 Assessment & Plan (1) Acute respiratory failure with hypoxia: Continues to improve. Recent is now on 2 L of oxygen ox saturation 92%. Likely combination of acute diastolic CHF and b/l pneumonia. COPD exacerbation was likely also present earlier this stay - treated previously with steroids. Dr Lowe evaluated the patient - amiodarone toxicity not suspected. Amiodarone was initiated on 02/27/19 - rather fast for development of such. Patient appears to be normovolemic. Repeat BMP am. Continue 40mg prednisone; defer wean to pulmonary. Continue NC O2 during day with night-time CPAP. (2) CHF (congestive heart failure): Acute diastolic. Echo 02/12/19 with preserved EF. Possible etiologies for her decompensated diastolic CHF -- uncontrolled a.fib, lack of diuretic (was on HCTZ when she left [facility]; it was apparently d/c while at rehab), dietary issues, etc. No evidence of ischemia. Net negative 9+ liters since admission. Appreciate Dr Horner's recommendations. Continue beta david (metoprolol tartrate 50mg BID). Plan to restart PO lasix tomorrow. (3) Pneumonia: Bilateral. Had received IV antibiotics since ER presentation. These were stopped this week after 10+ days of therapy. Previous blood cx's were negative. see discussion above in acute resp failure. cannot rule out that her pneumonia was aspiration. speech to perform video swallow video test on Tuesday. (4) Asthma: with exacerbation at admission. received about 5 days of IV steroids early in admission. steroids stopped, then prednisone restarted by Dr Ríos on 03/28/19 due to lingering NC O2 requirement and slow clinical improvement. Dr Lowe has seen. recommends continuing current care plan. perhaps wean prednisone starting this weekend. (5) A-fib: During her previous prolonged hospitalization she had 2 episodes of PAF with one lasting over 24 hours. She probably had runs of PAF outside the hospital. She had additional PAF runs during this hospital stay. Remains on amiodarone 200mg daily and metoprolol 50mg BID. Appreciate cardiology consultation. No anticoagulation at this time. No PAF in several days. (6) CAD (coronary artery disease): History of such. No ischemic symptoms at this time. Cont BB, statin, plavix. (7) Chronic kidney disease, stage 3a: Cr slightly higher last 2 days in context of aggressive diuresis. Placing PO lasix on hold due to volume contraction. Repeat bmp am. (8) HTN (hypertension): Cont home medications. Stable. (9) Hyperlipidemia: Cont statin. (10) Hypothyroidism: TSH mildly elevated at presentation. Takes synthroid 25mcg daily. Repeat TFTs yesterday acceptable. No change at this time in synthroid dose. (11) Obstructive sleep apnea, adult: Cont home CPAP unit at . (12) Traumatic hematoma of abdominal wall with infection: Had spontaneous rupture of large intra-abdominal hematoma in February during her prolonged stay. The hematoma was due to a prior fall. The hematoma became infected. Following rupture Dr Pablo performed I/D in the OR. Cultures showed e.coli. She had been on augmentin at [facility] and at home. The abdominal wound has improved considerably with Wound Vac. Would care continues to follow and change dressings M/W/F. Appreciate Dr Koroma's consultation. She has received close to 6 weeks of IV/PO antibiotics since February 06 (date of admission during prior hospital stay). She is now off all antibiotics. (13) Anemia: H/H cont to be stable. Cont Ferrous Sulfate 325mg BID. (14) Transient ischemic attack: Had TIA during prior admission. Also with h/o CVA many years ago. On plavix for secondary prevention. Ideally should be on anticoagulation because of PAF but this has been deferred due to prior intra-abdominal hematoma, etc. (15) Acute hypokalemia: resolved. (16) Candidiasis of mouth and esophagus: thrush. resolved. can likely stop the nystatin this weekend. (17) Dysphagia: spoke with speech today. video swallow rescheduled for this Tuesday if still hospitalized. if she goes home this weekend it can be done as outpatient. the video swallow was being done just to be sure no aspiration issues (and in light of pulmonary issues). appreciate speech therapy recs. remains on heart healthy diet (18) Osteoarthritis of right knee: voltaren gel qid (19) DVT prophylaxis: heparin 5000 BID /daughter updated at bedside today. family again states they would prefer for her to go home rather than back to rehab. home this weekend with home health, home PT, home OT?? probably needs 2-step prior to d/c Subjective Patient seen and examined at the bedside. Her daughter and son-in-law are next to her bedside. She is alert and oriented x3. She was able to walk yesterday with physical therapy and she did well. Patient is slowly improving. Appetite started to improve since yesterday and today is getting better. Patient abdominal wound is healing properly. He needs to be on 2 L of oxygen via nasal cannula and she saturates 91 to 92%. Patient is afebrile overnight,slowly improving. Review of Systems Review of Systems: All systems reviewed & are unremarkable except as noted in HPI & below Physical Exam Constitutional: WD/WN, vitals as above well developed and + frail appearing Eyes: PERRL, conjunctivae normal, anicteric sclerae ENMT: external ear and nose normal, oropharynx normal Neck: trachea midline, no thyromegaly Respiratory: Auscultation: + wheezes This is bilaterally improving. Cardiovascular: Rate/Rhythm: + irregularly irregular Chest (Breasts): normal inspection/palpation of breasts Gastrointestinal (Abdomen): normal bowel sounds, soft, nontender, no hepatosplenomegaly Musculoskeletal: Large wound located at the abdomen is properly healing. Wound VAC continues. Skin: no rashes, warm and dry Results & Data Vital Signs (Past 12 Hours) Vital Signs Temp Pulse Pulse Resp BP Pulse Ox 03/31/19 07:40 36.8 C 53 L 18 166/67 H 91 03/31/19 05:29 54 L 03/31/19 04:00 36.4 C L 83 20 188/77 H 97 PG Care Time/CCT Total # of Minutes Spent Total Time Spent with Patient: Total time spent is greater than 50% in coordination of care (as documented) at patient's floor/unit and/or counseling patient: (1) CHF (congestive heart failure) Heart failure chronicity: acute Heart failure type: unspecified Qualified Code(s): I50.9 - Heart failure, unspecified (2) Pneumonia Laterality: right Lung location: lower lobe of lung Pneumonia type: due to unspecified organism Qualified Code(s): J18.1 - Lobar pneumonia, unspecified organism (3) Asthma Asthma severity: unspecified severity Asthma persistence: unspecified Asthma complication type: uncomplicated Qualified Code(s): J45.909 - Unspecified asthma, uncomplicated (4) A-fib Atrial fibrillation type: unspecified Qualified Code(s): I48.91 - Unspecified atrial fibrillation (5) CAD (coronary artery disease) Coronary Disease-Associated Artery/Lesion type: [place] artery [place] vs. transplanted heart: [place] heart Associated angina: without angina Qualified Code(s): I25.10 - Atherosclerotic heart disease of [place] coronary artery without angina pectoris (6) HTN (hypertension) Hypertension type: essential hypertension Qualified Code(s): I10 - Essential (primary) hypertension (7) Hyperlipidemia Hyperlipidemia type: mixed hyperlipidemia Qualified Code(s): E78.2 - Mixed hyperlipidemia (8) Hypothyroidism Hypothyroidism type: acquired Qualified Code(s): E03.9 - Hypothyroidism, unspecified (9) Traumatic hematoma of abdominal wall with infection Encounter type: subsequent encounter Qualified Code(s): S30.1XXD - Contusion of abdominal wall, subsequent encounter; L08.9 - Local infection of the skin and subcutaneous tissue, unspecified (10) Anemia Anemia type: unspecified type Qualified Code(s): D64.9 - Anemia, unspecified (11) Dysphagia Dysphagia type: unspecified Qualified Code(s): R13.10 - Dysphagia, unspecified (12) Osteoarthritis of right knee Osteoarthritis type: primary Qualified Code(s): M17.11 - Unilateral primary osteoarthritis, right knee
[2019-03-31] MEDS ORDERED: SODIUM CHLORIDE 0.9% 500 ML IV SCH (14:45)
[2019-03-31] MEDS: LEVOTHYROXINE SODIUM 25 MCG TABLET PO SCH (20:49)
[2019-03-31] MEDS: FLUOXETINE HCL 20 MG CAP PO SCH (20:51)
[2019-03-31] MEDS: ATORVASTATIN 20 MG TAB PO SCH (20:53)
[2019-03-31] MEDS: MULTIVITAMIN TAB PO SCH (20:53)
[2019-04-01 07:49] LABS: Basophils # (auto) 0.02 K/uL (0-0.2); Basophils % (auto) 0.2 %; Eosinophils % (auto) 0.8 %; Hematocrit (blood only) 31.7 % (37-47); Hemoglobin 10.4 g/dL (12.0-16.0); Immature Granulocytes # (auto) 0.18 K/uL (0.00-0.02); Immature Granulocytes % (auto) 1.4 %; Lymphocytes # (auto) 1.03 K/uL (1.2-3.4); Lymphocytes % (auto) 8.2 %; Mean Corpuscular Hemoglobin 27.5 pg (25-34); Mean Corpuscular Hgb Conc 32.8 g/dL (32-36); Mean Corpuscular Volume 83.9 fL (80-100); Monocytes # (auto) 0.84 K/uL (0.11-0.59); Monocytes % (auto) 6.7 %; Neutrophils # (auto) 10.45 K/uL (1.4-6.5); Neutrophils % (auto) 82.7 %; Platelet Count 363 K/uL (130-400); RDW Coefficient of Variation 16.5 % (11.5-14.5); RDW Standard Deviation 50.1 fL (36.4-46.3); Red Blood Count 3.78 M/uL (4.2-5.4); White Blood Count 12.62 K/uL (4.8-10.8)
--- NOTE | 2019-04-01 07:56 | Pulmonology Progress Note ---
Date of Service April 01, 2019 Assessment & Plan (1) Acute respiratory failure with hypoxia: The patient continues to clinically improve. Oxygenation is improved. Dyspnea is much improved. Examination still reveals bilateral rales. Her prednisone was decreased to 30 mg and there is a gradual taper ordered. (2) Acute on chronic diastolic CHF (congestive heart failure): (3) Pneumonia: The patient ultimately will need a follow-up chest x-ray. Laterality: right Lung location: lower lobe of lung Pneumonia type: due to unspecified organism Qualified Code(s): J18.1 - Lobar pneumonia, unspecified organism (4) Asthma: Continue same meds. Pulmonary will sign off service in light of clinical improvement. We will see again only if specifically requested. Asthma severity: unspecified severity Asthma persistence: unspecified Asthma complication type: uncomplicated Qualified Code(s): J45.909 - Unspecified asthma, uncomplicated Subjective The patient states she feels well this morning. She still has her CPAP in place but clearly she has her mouth wide open with just a nasal mask. The nasal mask has pillows and this was not even in her nostrils. She is not complaining of any shortness of breath. She states she had a good night. Overall she has been much improved compared with last week. Physical Exam Physical Exam: The patient is a 88-year-old female who was cooperative alert and oriented. She was asleep when I first came in but awakened and oriented readily. ENT exam unchanged. Heart rate 52/min. Rhythm regular. Blood pressure 174/63. Auscultation of the lung juarez reveals persistence of rales posteriorly bilaterally. These are unchanged from prior. Her saturation at the time of my exam was 91%. As noted the CPAP really was not even in her nose. Her respiratory rate was 18 breaths/min and not labored. Extremities show no edema. Results & Data Vital Signs (Past 12 Hours) Vital Signs Temp Pulse Pulse Resp BP BP Pulse Ox 04/01/19 06:11 36.4 C L 52 L 19 174/63 H 91 04/01/19 04:01 36.4 C L 53 L 20 171/71 H 90 03/31/19 23:58 36.5 C 54 L 18 174/69 H 91 03/31/19 20:00 54 L Laboratory Results White count today 12.62. Hemoglobin 10.4. Platelets 363,000. Blood sugar this morning 91. Numerous other labs are pending. PG Care Time/CCT Total # of Minutes Spent Total Time Spent with Patient: Total time spent is greater than 50% in coordination of care (as documented) at patient's floor/unit and/or counseling patient:
[2019-04-01 08:13] LABS: Albumin Level 2.2 gm/dl (3.4-5.0); BUN Creatinine Ratio 56.7 (10-20); Calcium 9.3 mg/dl (8.5-10.1); Creatinine Clr Calc Pharmacy 44.3 ml/min; Est GFR (African American) 76.8; Est GFR (Non-African American) 66.3; Potassium 3.4 mmol/L (3.5-5.1)
[2019-04-01 08:18] LABS: Albumin Globulin Ratio 0.6 (0.9-2); Bilirubin,Total 0.5 mg/dl (0.2-1); Globulin 3.9 gm/dl (2.5-4.0); Total Protein 6.1 gm/dl (6.4-8.2)
[2019-04-01] MEDS ORDERED: DOCUSATE SODIUM 100 MG CAP PO PRN (09:23)
[2019-04-01] MEDS: FERROUS SULFATE 325 MG TAB PO SCH ×2 (09:31→16:47)
[2019-04-01] MEDS: FLUTICASONE/VILANTEROL INHALER INH SCH (09:32)
[2019-04-01] MEDS: AMIODARONE 200 MG TAB PO SCH (09:33)
[2019-04-01] MEDS: HEPARIN SOD 5,000 UNIT/0.5 ML VIAL SQ SCH ×2 (09:33→19:37)
[2019-04-01] MEDS: SACCHAROMYCES BOULARDII 250 MG CAP PO SCH (09:33)
[2019-04-01] MEDS: MAGNESIUM OXIDE 400 MG TAB PO SCH ×2 (09:34→19:35)
[2019-04-01] MEDS: NYSTATIN SUSP 500,000 U/5 ML UDC PO SCH ×4 (09:34→19:36)
[2019-04-01] MEDS: CHOLECALCIFEROL 1,000 UNITS TAB PO SCH (09:35)
[2019-04-01] MEDS: CALCIUM CARBONATE 1250MG TAB PO SCH ×2 (09:35→19:35)
[2019-04-01] MEDS: NYSTATIN POWDER 15GM BTL EXT SCH ×3 (09:35→19:36)
[2019-04-01] MEDS: CLOPIDOGREL BISULFATE 75 MG TAB PO SCH (09:35)
[2019-04-01] MEDS: METOPROLOL SUCC 50MG EXT REL TAB PO SCH (09:36)
[2019-04-01] MEDS: predniSONE 20 MG TAB PO SCH (09:37)
[2019-04-01] MEDS: PANTOprazole 40 MG TAB PO SCH (09:38)
[2019-04-01] MEDS: FLUOXETINE HCL 10 MG CAP PO SCH (09:38)
[2019-04-01] MEDS: DICLOFENAC SOD 1% GEL 100 GM TUBE EXT SCH ×4 (09:39→19:36)
[2019-04-01] MEDS: DOCUSATE SODIUM 100 MG CAP PO SCH (10:19)
[2019-04-01] MEDS ORDERED: SODIUM CHLORIDE 0.9% 500 ML IV SCH (14:45)
--- NOTE | 2019-04-01 14:45 | Hospitalist Progress Note ---
Date of Service April 01, 2019 Assessment & Plan (1) Acute respiratory failure with hypoxia: Continues to improve. Continue titrating supplemental O2 while keeping O2 saturation above 92%. Likely combination of acute diastolic CHF and b/l pneumonia. COPD exacerbation was likely also present earlier this stay - treated previously with steroids. Dr Lowe evaluated the patient - amiodarone toxicity not suspected. Amiodarone was initiated on 02/27/19 - rather fast for development of such. Patient appears to be normovolemic. Repeat BMP am. Continue 40mg prednisone; defer wean to pulmonary. Continue NC O2 during day with night-time CPAP. (2) CHF (congestive heart failure): Acute diastolic. Echo 02/12/19 with preserved EF. Possible etiologies for her decompensated diastolic CHF -- uncontrolled a.fib, lack of diuretic (was on HCTZ when she left [facility]; it was apparently d/c while at rehab), dietary issues, etc. No evidence of ischemia. Diuretic on hold because patient is more dry BUN of 45. Yesterday patient received total 500 cc of normal saline at 80 cc/h. BUN improved from 57-->45 yesterday, but pt is still dry. Appreciate Dr Horner's recommendations. Continue beta david (metoprolol tartrate 50mg BID). Plan to restart PO lasix tomorrow. (3) Pneumonia: Bilateral. Had received IV antibiotics since ER presentation. These were stopped this week after 10+ days of therapy. Previous blood cx's were negative. see discussion above in acute resp failure. cannot rule out that her pneumonia was aspiration. speech to perform video swallow video test on Tuesday. (4) Asthma: with exacerbation at admission. received about 5 days of IV steroids early in admission. steroids stopped, then prednisone restarted by Dr Ríos on 03/28/19 due to lingering NC O2 requirement and slow clinical improvement. Dr Lowe has seen. recommends continuing current care plan. perhaps wean prednisone starting this weekend. (5) A-fib: During her previous prolonged hospitalization she had 2 episodes of PAF with one lasting over 24 hours. She probably had runs of PAF outside the hospital. She had additional PAF runs during this hospital stay. Remains on amiodarone 200mg daily and metoprolol 50mg BID. Appreciate cardiology consultation. No anticoagulation at this time. No PAF in several days. (6) CAD (coronary artery disease): History of such. No ischemic symptoms at this time. Cont BB, statin, plavix. (7) Chronic kidney disease, stage 3a: Cr slightly higher last 2 days in context of aggressive diuresis. Placing PO lasix on hold due to volume contraction. Repeat bmp am. (8) HTN (hypertension): Cont home medications. Stable. (9) Hyperlipidemia: Cont statin. (10) Hypothyroidism: TSH mildly elevated at presentation. Takes synthroid 25mcg daily. Repeat TFTs yesterday acceptable. No change at this time in synthroid dose. (11) Obstructive sleep apnea, adult: Cont home CPAP unit at . (12) Traumatic hematoma of abdominal wall with infection: Had spontaneous rupture of large intra-abdominal hematoma in February during her prolonged stay. The hematoma was due to a prior fall. The hematoma became infected. Following rupture Dr Pablo performed I/D in the OR. Cultures showed e.coli. She had been on augmentin at [facility] and at home. The abdominal wound has improved considerably with Wound Vac. Would care continues to follow and change dressings M/W/F. Appreciate Dr Koroma's consultation. She has received close to 6 weeks of IV/PO antibiotics since February 06 (date of admission during prior hospital stay). She is now off all antibiotics. (13) Anemia: H/H cont to be stable. Cont Ferrous Sulfate 325mg BID. (14) Transient ischemic attack: Had TIA during prior admission. Also with h/o CVA many years ago. On plavix for secondary prevention. Ideally should be on anticoagulation because of PAF but this has been deferred due to prior intra-abdominal hematoma, etc. (15) Acute hypokalemia: resolved. (16) Candidiasis of mouth and esophagus: thrush. resolved. can likely stop the nystatin this weekend. (17) Dysphagia: spoke with speech today. video swallow rescheduled for this Tuesday if still hospitalized. if she goes home this weekend it can be done as outpatient. the video swallow was being done just to be sure no aspiration issues (and in light of pulmonary issues). appreciate speech therapy recs. remains on heart healthy diet (18) Osteoarthritis of right knee: voltaren gel qid (19) DVT prophylaxis: heparin 5000 BID /daughter updated at bedside today. family again states they would prefer for her to go home rather than back to rehab. home this weekend with home health, home PT, home OT?? probably needs 2-step prior to d/c Subjective Patient seen and examined at the bedside. Patient is alert oriented x3 involved in discussions. This morning patient was without any oxygen for approximately 2 hours and she was able to maintain oxygenation about 89 to 91%. Appetite is slowly improving, patient is afebrile. Regular BMs no changes in bowel movement. Patient had complained that she had several bowel movements which were soft because she is taking scheduled Colace twice a day. Patient denies diarrhea. Patient denies fever chills chest pain shortness of breath abdominal pain frequency urgency hemoptysis hematuria melena hematochezia nausea vomiting. Abdominal wound is healing properly. There is no area of erythema or swelling and redness. Wound VAC is on draining approximately 15 cc every 24 hours. Review of Systems Review of Systems: All systems reviewed & are unremarkable except as noted in HPI & below Musculoskeletal: + joint pain (right knee - chronic) Endocrine: no diabetes Physical Exam Constitutional: WD/WN, vitals as above well developed and + frail appearing Eyes: PERRL, conjunctivae normal, anicteric sclerae ENMT: external ear and nose normal, oropharynx normal Neck: trachea midline, no thyromegaly Respiratory: Auscultation: + wheezes Cardiovascular: Rate/Rhythm: + irregularly irregular Chest (Breasts): normal inspection/palpation of breasts Gastrointestinal (Abdomen): normal bowel sounds, soft, nontender, no hep atosplenomegaly Skin: no rashes, warm and dry Results & Data Vital Signs (Past 12 Hours) Vital Signs Temp Pulse Resp BP BP Pulse Ox 04/01/19 12:00 36.4 C L 55 L 20 147/74 H 93 04/01/19 06:11 36.4 C L 52 L 19 174/63 H 91 04/01/19 04:01 36.4 C L 53 L 20 171/71 H 90 PG Care Time/CCT Total # of Minutes Spent Total Time Spent with Patient: Total time spent is greater than 50% in coordination of care (as documented) at patient's floor/unit and/or counseling patient: (1) CHF (congestive heart failure) Heart failure chronicity: acute Heart failure type: unspecified Qualified Code(s): I50.9 - Heart failure, unspecified (2) Pneumonia Laterality: right Lung location: lower lobe of lung Pneumonia type: due to unspecified organism Qualified Code(s): J18.1 - Lobar pneumonia, unspecified organism (3) Asthma Asthma severity: unspecified severity Asthma persistence: unspecified Asthma complication type: uncomplicated Qualified Code(s): J45.909 - Unspecified asthma, uncomplicated (4) A-fib Atrial fibrillation type: unspecified Qualified Code(s): I48.91 - Unspecified atrial fibrillation (5) CAD (coronary artery disease) Coronary Disease-Associated Artery/Lesion type: [place] artery [place] vs. transplanted heart: [place] heart Associated angina: without angina Qualified Code(s): I25.10 - Atherosclerotic heart disease of [place] coronary artery without angina pectoris (6) HTN (hypertension) Hypertension type: essential hypertension Qualified Code(s): I10 - Essential (primary) hypertension (7) Hyperlipidemia Hyperlipidemia type: mixed hyperlipidemia Qualified Code(s): E78.2 - Mixed hyperlipidemia (8) Hypothyroidism Hypothyroidism type: acquired Qualified Code(s): E03.9 - Hypothyroidism, unspecified (9) Traumatic hematoma of abdominal wall with infection Encounter type: subsequent encounter Qualified Code(s): S30.1XXD - Contusion of abdominal wall, subsequent encounter; L08.9 - Local infection of the skin and subcutaneous tissue, unspecified (10) Anemia Anemia type: unspecified type Qualified Code(s): D64.9 - Anemia, unspecified (11) Dysphagia Dysphagia type: unspecified Qualified Code(s): R13.10 - Dysphagia, unspecified (12) Osteoarthritis of right knee Osteoarthritis type: primary Qualified Code(s): M17.11 - Unilateral primary osteoarthritis, right knee
[2019-04-01] MEDS: LEVOTHYROXINE SODIUM 25 MCG TABLET PO SCH (19:34)
[2019-04-01] MEDS: FLUOXETINE HCL 20 MG CAP PO SCH (19:35)
[2019-04-01] MEDS: MULTIVITAMIN TAB PO SCH (19:36)
[2019-04-01] MEDS: ATORVASTATIN 20 MG TAB PO SCH (19:36)
[2019-04-02 06:53] LABS: Basophils # (auto) 0.02 K/uL (0-0.2); Basophils % (auto) 0.2 %; Eosinophils # (auto) 0.25 K/uL (0-0.5); Hematocrit (blood only) 31.6 % (37-47); Hemoglobin 10.3 g/dL (12.0-16.0); Immature Granulocytes # (auto) 0.19 K/uL (0.00-0.02); Immature Granulocytes % (auto) 1.5 %; Lymphocytes # (auto) 1.16 K/uL (1.2-3.4); Lymphocytes % (auto) 9.3 %; Mean Corpuscular Hemoglobin 27.8 pg (25-34); Mean Corpuscular Hgb Conc 32.6 g/dL (32-36); Mean Corpuscular Volume 85.4 fL (80-100); Mean Platelet Volume 8.9 fL (7.4-10.4); Monocytes # (auto) 0.88 K/uL (0.11-0.59); Monocytes % (auto) 7.1 %; Neutrophils # (auto) 9.94 K/uL (1.4-6.5); Neutrophils % (auto) 79.9 %; Platelet Count 337 K/uL (130-400); RDW Coefficient of Variation 16.8 % (11.5-14.5); White Blood Count 12.44 K/uL (4.8-10.8)
[2019-04-02 07:28] LABS: Albumin Level 2.2 gm/dl (3.4-5.0); BUN Creatinine Ratio 63.3 (10-20); Calcium 8.9 mg/dl (8.5-10.1); Creatinine Clr Calc Pharmacy 54.1 ml/min; Est GFR (African American) 92.1; Est GFR (Non-African American) 79.4; Potassium 3.5 mmol/L (3.5-5.1)
[2019-04-02 07:33] LABS: Albumin Globulin Ratio 0.6 (0.9-2); Bilirubin,Total 0.5 mg/dl (0.2-1); Globulin 3.6 gm/dl (2.5-4.0); Total Protein 5.8 gm/dl (6.4-8.2)
[2019-04-02] MEDS: FLUTICASONE/VILANTEROL INHALER INH SCH (08:26)
[2019-04-02] MEDS: AMIODARONE 200 MG TAB PO SCH (08:26)
[2019-04-02] MEDS: SACCHAROMYCES BOULARDII 250 MG CAP PO SCH (08:27)
[2019-04-02] MEDS: MAGNESIUM OXIDE 400 MG TAB PO SCH ×2 (08:28→20:15)
[2019-04-02] MEDS: DICLOFENAC SOD 1% GEL 100 GM TUBE EXT SCH ×4 (08:28→20:15)
[2019-04-02] MEDS: HEPARIN SOD 5,000 UNIT/0.5 ML VIAL SQ SCH ×2 (08:28→20:14)
[2019-04-02] MEDS: CLOPIDOGREL BISULFATE 75 MG TAB PO SCH (08:29)
[2019-04-02] MEDS: NYSTATIN SUSP 500,000 U/5 ML UDC PO SCH ×4 (08:29→20:14)
[2019-04-02] MEDS: NYSTATIN POWDER 15GM BTL EXT SCH ×3 (08:29→20:14)
[2019-04-02] MEDS: CALCIUM CARBONATE 1250MG TAB PO SCH ×2 (08:29→20:15)
[2019-04-02] MEDS: predniSONE 20 MG TAB PO SCH (08:30)
[2019-04-02] MEDS: PANTOprazole 40 MG TAB PO SCH (08:31)
[2019-04-02] MEDS: METOPROLOL SUCC 50MG EXT REL TAB PO SCH (08:33)
[2019-04-02] MEDS: FLUOXETINE HCL 10 MG CAP PO SCH (08:33)
[2019-04-02] MEDS: CHOLECALCIFEROL 1,000 UNITS TAB PO SCH (08:34)
[2019-04-02] MEDS: FERROUS SULFATE 325 MG TAB PO SCH ×2 (08:35→17:48)
[2019-04-02] MEDS: ALBUT/IPRATROP 3MG/0.5MG NEB 3 ML VIAL NEB PRN (10:11)
[2019-04-02] MEDS ORDERED: HydrALAZINE 10 MG TAB PO PRN (11:20)
--- NOTE | 2019-04-02 11:53 | Fluoroscopy Report ---
FL video swallow HISTORY: Shortness of breath, pneumonia. Aspiration TECHNIQUE: Video fluoroscopic evaluation of swallowing was performed in the AP and lateral projection s by the speech pathology staff. The patient is fed nectar-thick and thin liquid barium, a barium coa ayesha wafer, and barium pudding. FLUOROSCOPY TIME: 2.8 minutes. NUMBER OF FLUOROSCOPY IMAGES: COMPARISON STUDY: None. FINDINGS: When swallowing thin liquid barium, there is evidence for aspiration and penetration. When swallowing nectar thick liquid a teaspoon, there is evidence for aspiration. When swallowing pudding there was no evidence for aspiration. When swallowing a cracker with paste, there was initially no as piration, but then there was aspiration of the retained fluids. IMPRESSION: 1. Examination is positive for aspiration. 2. Please see the speech pathologist report for detailed findings and recommendations. Electronically signed by: Rosalio Childs M.D. 04/02/2019 11:51 AM
[2019-04-02] MEDS ORDERED: ALBUMIN 25% 50 ML IV ONE (12:00)
--- NOTE | 2019-04-02 14:33 | Palliative Care Progress Note ---
Date of Service April 02, 2019 Assessment & Plan (1) Goals of care, counseling/discussion: Goals of care, counseling/discussion: Patient is an 88-year-old female with a past medical history significant for newly diagnosed paroxysmal A. 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 After this hospitalization patient spent 2 weeks at [facility] and was recently discharged on 03/15. Patient had done well in rehab. Patient had a choking episode on 03/16 and continue to have worsening shortness of breath over the next couple days. On 03/18 patient was having severe shortness of breath and was brought to the emergency room. In the emergency room chest x-ray showed cardiomegaly with edema, white count was 16.69 with a hemoglobin of 8.8. Patient was admitted and diuresed-her hemoglobin dropped to 7.5 and she was transfused. Hemoglobin stable. Patient has required aggressive diuresis-she was able to be weaned down to 1 L of O2-now requiring 2 L via nasal cannula. Patient awake alert and oriented-able to participate in conversation. Patient named her daughterGaby as medical decision-maker on previous visit. Patient's daughter, son-in-law and at bedside CODE STATUS-full code, she would not want prolonged intubation or be maintained on life support for an indefinite period of time. Patient's daughter is aware of patient's wishes-has had discussions in the past regarding her living will. -Paroxysmal A. fib-this is a relatively new diagnosis-patient was on amiodarone and metoprolol and had an episode of A. fib while on amiodarone-patient co nverted on Cardizem -now back on amiodarone and metoprolol. Patient is on Plavix for AC -Diastolic CHF-patient is being aggressively diuresed, patient's renal function tolerated diuresis-now transitioning to p.o. Lasix. Respiratory status improving with aggressive diuresis -Acute respiratory failure with hypoxia-underlying COPD as well as diastolic heart failure and possible pneumonia contributing-patient improving, weaning O2 as tolerated -COPD-continue respiratory support, diuresis, now on her Breo inhaler. Antibiotics discontinued -Abdominal wall abscess-wound VAC in place, wound healing well-wound images reviewed. -Depression-has been doing well on current dose of Prozac -Hypothyroid-on Synthroid Will continue to follow and assist patient and family with medical decision making as needed. Patient and family hope to be discharged home soon-feel she will improve with improved nighttime sleeping as well as rest. Both patient and family planning on home PT/OT, may benefit from home HIGH RISK OB if qualifies. (2) PAF (paroxysmal atrial fibrillation): (3) Acute on chronic diastolic CHF (congestive heart failure): (4) Acute respiratory failure with hypoxia: (5) COPD (chronic obstructive pulmonary disease): COPD type: COPD with acute exacerbation Qualified Code(s): J44.1 - Chronic obstructive pulmonary disease with (acute) exacerbation (6) Abscess of abdominal wall: (2) Acute on chronic diastolic CHF (congestive heart failure): Improving with aggressive diuresis-on Lasix IV every 8 hours (3) Acute respiratory failure with hypoxia: Improving, did need O2 titrated upward-on BiPAP nightly, overall appears better (4) COPD (chronic obstructive pulmonary disease): Slowly improving with aggressive pulmonary toilet, titrating O2 as required (5) Abscess of abdominal wall: Healing with wound VAC (6) PAF (paroxysmal atrial fibrillation): Rate well controlled on amiodarone and metoprolol Subjective Patient seen and examined in her room this a.m. Patient's , daughter and son-in-law at bedside. Patient had done well over the weekend and was anticipated to be discharged shortly-however this morning patient had some increased shortness of breath. Patient's creatinine did rise slightly with aggressive diuresis-patient then had her Lasix discontinued and required some IV hydration. Family reports patient had a swallow eval-patient did aspirate, however it was inconsistent and intermittent-all consistencies. Family aware that patient needs to be upright for all meals and p.o. intake. Patient's O2 had to be increased from 1 to 2 L via nasal cannula. Family does report that patient did improve at [facility]-mostly due to increased nighttime sleep and rest. Family would like to get patient home with home health as soon as possible. Patient is already set up with [facility] for home PT/OT, she would benefit also from home HIGH RISK OB if available. Patient may need O2 at home until her strength improves-could be weaned at home. Review of Systems Review of Systems: Patient denies fever, chills, chest pain or abdominal pain. She does note some chest heaviness with increased shortness of breath-this was relieved with a neb treatment and increasing O2 to 2 L. Physical Exam Physical Exam: PE: Patient appears comfortable, fatigued HEENT: EOMI, hearing within normal limits Respirations: Unlabored, clear breath sounds bilaterally CV: Regular rate Abdomen: Soft, nontender, wound VAC in place Neuro: Alert and oriented x4 Results & Data Vital Signs (Past 12 Hours) Vital Signs Temp Pulse Pulse Resp BP BP Pulse Ox 04/02/19 11:37 97.5 F L 60 20 155/65 H 93 04/02/19 10:11 58 L 18 93 04/02/19 08:30 65 94 04/02/19 07:05 59 L 04/02/19 06:24 97.9 F 55 L 19 187/74 H 94 04/02/19 04:30 97.5 F L 53 L 20 186/73 H 92 PG Care Time/CCT Total # of Minutes Spent Total Time Spent with Patient: Total time spent is greater than 50% in coordination of care (as documented) at patient's floor/unit and/or counseling patient: Time Spent Attending Total time spent greater than 35 minutes with greater than 50% of the time spent at bedside discussing patient's current condition as well as providing support to both patient and family. (1) COPD (chronic obstructive pulmonary disease) COPD type: COPD with acute exacerbation Qualified Code(s): J44.1 - Chronic obstructive pulmonary disease with (acute) exacerbation
[2019-04-02] MEDS: FUROSEMIDE 20 MG in SYRINGE 0 ML IV SCH (15:26)
--- NOTE | 2019-04-02 18:08 | Hospitalist Progress Note ---
Date of Service April 02, 2019 Assessment & Plan (1) Acute respiratory failure with hypoxia: Continues to improve. Continue titrating supplemental O2 while keeping O2 saturation above 92%. Likely combination of acute diastolic CHF and b/l pneumonia. COPD exacerbation was likely also present earlier this stay - treated previously with steroids. Dr Lowe evaluated the patient - amiodarone toxicity not suspected. Amiodarone was initiated on 02/27/19 - rather fast for development of such. Patient appears to be normovolemic. Repeat BMP am. Continue 40mg prednisone; defer wean to pulmonary. Continue NC O2 during day with night-time CPAP. (2) CHF (congestive heart failure): Acute diastolic. Echo 02/12/19 with preserved EF. Possible etiologies for her decompensated diastolic CHF -- uncontrolled a.fib, lack of diuretic (was on HCTZ when she left [facility]; it was apparently d/c while at rehab), dietary issues, etc. No evidence of ischemia. Appreciate Dr Horner's recommendations. Continue beta david (metoprolol tartrate 50mg BID). Plan to restart PO lasix tomorrow. (3) Pneumonia: Bilateral. Had received IV antibiotics since ER presentation. These were stopped this week after 10+ days of therapy. Previous blood cx's were negative. see discussion above in acute resp failure. cannot rule out that her pneumonia was aspiration. speech to perform video swallow video test on Tuesday. (4) Asthma: with exacerbation at admission. received about 5 days of IV steroids early in admission. steroids stopped, then prednisone restarted by Dr Ríos on 03/28/19 due to lingering NC O2 requirement and slow clinical improvement. Dr Lowe has seen. recommends continuing current care plan. perhaps wean prednisone starting this weekend. (5) A-fib: During her previous prolonged hospitalization she had 2 episodes of PAF with one lasting over 24 hours. She probably had runs of PAF outside the hospital. She had additional PAF runs during this hospital stay. Remains on amiodarone 200mg daily and metoprolol 50mg BID. Appreciate cardiology consultation. No anticoagulation at this time. No PAF in several days. (6) CAD (coronary artery disease): History of such. No ischemic symptoms at this time. Cont BB, statin, plavix. (7) Chronic kidney disease, stage 3a: Restart lasix , 1/2 of the home dose. Strict I/O Repeat bmp am. (8) HTN (hypertension): Cont home medications. Stable. (9) Hyperlipidemia: Cont statin. (10) Hypothyroidism: TSH mildly elevated at presentation. Takes synthroid 25mcg daily. Repeat TFTs yesterday acceptable. No change at this time in synthroid dose. (11) Obstructive sleep apnea, adult: Cont home CPAP unit at . (12) Traumatic hematoma of abdominal wall with infection: Had spontaneous rupture of large intra-abdominal hematoma in February during her prolonged stay. The hematoma was due to a prior fall. The hematoma became infected. Following rupture Dr Pablo performed I/D in the OR. Cultures showed e.coli. She had been on augmentin at [facility] and at home. The abdominal wound has improved considerably with Wound Vac. Would care continues to follow and change dressings M/W/F. Appreciate Dr Koroma's consultation. She has received close to 6 weeks of IV/PO antibiotics since February 06 (date of admission during prior hospital stay). She is now off all antibiotics. (13) Anemia: H/H cont to be stable. Cont Ferrous Sulfate 325mg BID. (14) Transient ischemic attack: Had TIA during prior admission. Also with h/o CVA many years ago. On plavix for secondary prevention. Ideally should be on anticoagulation because of PAF but this has been deferred due to prior intra-abdominal hematoma, etc. (15) Acute hypokalemia: resolved. (16) Candidiasis of mouth and esophagus: thrush. resolved. can likely stop the nystatin this weekend. (17) Dysphagia: spoke with speech today. video swallow rescheduled for this Tuesday if still hospitalized. if she goes home this weekend it can be done as outpatient. the video swallow was being done just to be sure no aspiration issues (and in light of pulmonary issues). appreciate speech therapy recs. remains on heart healthy diet (18) Osteoarthritis of right knee: voltaren gel qid (19) DVT prophylaxis: heparin 5000 BID /daughter updated at bedside today. family again states they would prefer for her to go home rather than back to rehab. home this weekend with home health, home PT, home OT?? probably needs 2-step prior to d/c Subjective Patient seen and examined at the bedside. Patient is alert oriented x3 involved in discussions.pt did not pass swallowing test today, and she has episodes of aspiration on the test. Will follow speach therapy recommnedations. Patient denies fever chills chest pain shortness of breath abdominal pain frequency urgency hemoptysis hematuria melena hematochezia nausea vomiting. Abdominal wo und is healing properly. There is no area of erythema or swelling and redness. Wound VAC is on draining approximately 15 cc every 24 hours. Review of Systems Review of Systems: All systems reviewed & are unremarkable except as noted in HPI & below Physical Exam Constitutional: WD/WN, vitals as above well developed and + frail appearing Eyes: PERRL, conjunctivae normal, anicteric sclerae ENMT: external ear and nose normal, oropharynx normal Neck: trachea midline, no thyromegaly Respiratory: Auscultation: + wheezes Cardiovascular: Rate/Rhythm: + irregularly irregular Chest (Breasts): normal inspection/palpation of breasts Gastrointestinal (Abdomen): normal bowel sounds, soft, nontender, no hepatosplenomegaly Skin: no rashes, warm and dry Results & Data Vital Signs (Past 12 Hours) Vital Signs Temp Pulse Pulse Resp BP BP Pulse Ox 04/02/19 15:31 36.7 C 60 18 158/70 H 95 04/02/19 11:37 36.4 C L 60 20 155/65 H 93 04/02/19 10:11 58 L 18 93 04/02/19 08:30 65 94 04/02/19 07:05 59 L 04/02/19 06:24 36.6 C 55 L 19 187/74 H 94 PG Care Time/CCT Total # of Minutes Spent Total Time Spent with Patient: Total time spent is greater than 50% in coordination of care (as documented) at patient's floor/unit and/or counseling patient: (1) CHF (congestive heart failure) Heart failure chronicity: acute Heart failure type: unspecified Qualified Code(s): I50.9 - Heart failure, unspecified (2) Pneumonia Laterality: right Lung location: lower lobe of lung Pneumonia type: due to unspecified organism Qualified Code(s): J18.1 - Lobar pneumonia, unspecified organism (3) Asthma Asthma severity: unspecified severity Asthma persistence: unspecified Asthma complication type: uncomplicated Qualified Code(s): J45.909 - Unspecified asthma, uncomplicated (4) A-fib Atrial fibrillation type: unspecified Qualified Code(s): I48.91 - Unspecified atrial fibrillation (5) CAD (coronary artery disease) Coronary Disease-Associated Artery/Lesion type: [place] artery [place] vs. transplanted heart: [place] heart Associated angina: without angina Qualified Code(s): I25.10 - Atherosclerotic heart disease of [place] coronary artery without angina pectoris (6) HTN (hypertension) Hypertension type: essential hypertension Qualified Code(s): I10 - Essential (primary) hypertension (7) Hyperlipidemia Hyperlipidemia type: mixed hyperlipidemia Qualified Code(s): E78.2 - Mixed hyperlipidemia (8) Hypothyroidism Hypothyroidism type: acquired Qualified Code(s): E03.9 - Hypothyroidism, unspecified (9) Traumatic hematoma of abdominal wall with infection Encounter type: subsequent encounter Qualified Code(s): S30.1XXD - Contusion of abdominal wall, subsequent encounter; L08.9 - Local infection of the skin and subcutaneous tissue, unspecified (10) Anemia Anemia type: unspecified type Qualified Code(s): D64.9 - Anemia, unspecified (11) Dysphagia Dysphagia type: unspecified Qualified Code(s): R13.10 - Dysphagia, unspecified (12) Osteoarthritis of right knee Osteoarthritis type: primary Qualified Code(s): M17.11 - Unilateral primary osteoarthritis, right knee
[2019-04-02] MEDS: LEVOTHYROXINE SODIUM 25 MCG TABLET PO SCH (20:14)
[2019-04-02] MEDS: MULTIVITAMIN TAB PO SCH (20:14)
[2019-04-02] MEDS: ATORVASTATIN 20 MG TAB PO SCH (20:14)
[2019-04-02] MEDS: FLUOXETINE HCL 20 MG CAP PO SCH (20:15)
[2019-04-03 06:14] LABS: Basophils # (auto) 0.02 K/uL (0-0.2); Basophils % (auto) 0.2 %; Eosinophils # (auto) 0.27 K/uL (0-0.5); Eosinophils % (auto) 2.1 %; Hematocrit (blood only) 31.5 % (37-47); Hemoglobin 10.2 g/dL (12.0-16.0); Immature Granulocytes # (auto) 0.15 K/uL (0.00-0.02); Immature Granulocytes % (auto) 1.2 %; Lymphocytes # (auto) 1.12 K/uL (1.2-3.4); Lymphocytes % (auto) 8.8 %; Mean Corpuscular Hemoglobin 27.8 pg (25-34); Mean Corpuscular Hgb Conc 32.4 g/dL (32-36); Mean Corpuscular Volume 85.8 fL (80-100); Mean Platelet Volume 8.9 fL (7.4-10.4); Monocytes # (auto) 1.14 K/uL (0.11-0.59); Neutrophils # (auto) 10.01 K/uL (1.4-6.5); Neutrophils % (auto) 78.7 %; Platelet Count 329 K/uL (130-400); RDW Standard Deviation 53.1 fL (36.4-46.3); Red Blood Count 3.67 M/uL (4.2-5.4); White Blood Count 12.71 K/uL (4.8-10.8)
[2019-04-03 06:52] LABS: Albumin Level 2.3 gm/dl (3.4-5.0); BUN Creatinine Ratio 47.7 (10-20); Calcium 8.7 mg/dl (8.5-10.1); Creatinine Clr Calc Pharmacy 52.8 ml/min; Est GFR (African American) 91.2; Est GFR (Non-African American) 78.6; Potassium 3.6 mmol/L (3.5-5.1)
[2019-04-03 06:58] LABS: Albumin Globulin Ratio 0.7 (0.9-2); Bilirubin,Total 0.5 mg/dl (0.2-1); Globulin 3.4 gm/dl (2.5-4.0); Total Protein 5.7 gm/dl (6.4-8.2)
[2019-04-03] MEDS ORDERED: AMLODIPINE BESYLATE 5 MG TAB PO ONE (07:13)
[2019-04-03] MEDS: HydrALAZINE 10 MG TAB PO PRN (07:22)
[2019-04-03] MEDS ORDERED: Nursing to Pharmacy Communication ONE (08:15)
[2019-04-03] MEDS ORDERED: ALBUMIN 25% 50 ML IV ONE (09:00)
[2019-04-03] MEDS: MAGNESIUM OXIDE 400 MG TAB PO SCH ×2 (09:33→20:41)
[2019-04-03] MEDS: CALCIUM CARBONATE 1250MG TAB PO SCH ×2 (09:33→20:42)
[2019-04-03] MEDS: PANTOprazole 40 MG TAB PO SCH (09:33)
[2019-04-03] MEDS: SACCHAROMYCES BOULARDII 250 MG CAP PO SCH (09:33)
[2019-04-03] MEDS: FERROUS SULFATE 325 MG TAB PO SCH ×2 (09:34→16:54)
[2019-04-03] MEDS: AMIODARONE 200 MG TAB PO SCH (09:34)
[2019-04-03] MEDS: METOPROLOL SUCC 50MG EXT REL TAB PO SCH (09:36)
[2019-04-03] MEDS: FLUOXETINE HCL 10 MG CAP PO SCH (09:37)
[2019-04-03] MEDS: CLOPIDOGREL BISULFATE 75 MG TAB PO SCH (09:37)
[2019-04-03] MEDS: NYSTATIN SUSP 500,000 U/5 ML UDC PO SCH ×4 (09:37→20:43)
[2019-04-03] MEDS: CHOLECALCIFEROL 1,000 UNITS TAB PO SCH (09:37)
[2019-04-03] MEDS: NYSTATIN POWDER 15GM BTL EXT SCH ×3 (09:38→20:43)
[2019-04-03] MEDS: predniSONE 20 MG TAB PO SCH (09:39)
[2019-04-03] MEDS: DICLOFENAC SOD 1% GEL 100 GM TUBE EXT SCH ×4 (09:39→20:43)
[2019-04-03] MEDS: FLUTICASONE/VILANTEROL INHALER INH SCH (09:45)
--- NOTE | 2019-04-03 10:45 | Hospitalist Progress Note ---
Date of Service April 03, 2019 Assessment & Plan (1) Dysphagia: Pt failed swallow study. She is not candidate for feeding tube, nor her family wants it. Per speech pt remains on heart healthy diet with small sips. This finding was discussed with daughter and son in law, and discussed high risk of recurrent pneumonia due to aspiration of saliva. Recommended comfort and quality of life. (2) Acute respiratory failure with hypoxia: Continues to improve.Pt is still on 2 L. Continue titrating supplemental O2 while keeping O2 saturation above 92%. Tapering down prednisone. Continue NC O2 during day with night-time CPAP. (3) CHF (congestive heart failure): Acute diastolic. Echo 02/12/19 with preserved EF. Possible etiologies for her decompensated diastolic CHF -- uncontrolled a.fib, lack of diuretic (was on HCTZ when she left [facility]; it was apparently d/c while at rehab), dietary issues, etc. No evidence of ischemia. Appreciate Dr Horner's recommendations. Continue beta david (metoprolol tartrate 50mg BID). Plan to restart PO lasix tomorrow. (4) Pneumonia: Bilateral. Had received IV antibiotics since ER presentation. These were stopped this week after 10+ days of therapy. Previous blood cx's were negative. (5) Asthma: with exacerbation at admission. received about 5 days of IV steroids early in admission. steroids stopped, then prednisone restarted by Dr Ríos on 03/28/19 due to lingering NC O2 requirement and slow clinical improvement. Dr Lowe has seen. recommends continuing current care plan. (6) A-fib: During her previous prolonged hospitalization she had 2 episodes of PAF with one lasting over 24 hours. She probably had runs of PAF outside the hospital. She had additional PAF runs during this hospital stay. Remains on amiodarone 200mg daily and metoprolol 50mg BID. Appreciate cardiology consultation. No anticoagulation at this time. No PAF in several days. (7) CAD (coronary artery disease): History of such. No ischemic symptoms at this time. Cont BB, statin, plavix. (8) Chronic kidney disease, stage 3a: Lasix , 1/2 of the home dose. Albumin for hypoalbuminemia to shift the fluids from the third space. Strict I/O PT/OT (9) HTN (hypertension): Cont home medications. Stable. (10) Hyperlipidemia: Cont statin. (11) Hypothyroidism: TSH mildly elevated at presentation. Takes synthroid 25mcg daily. Repeat TFTs yesterday acceptable. No change at this time in synthroid dose. (12) Obstructive sleep apnea, adult: Cont home CPAP unit at . (13) Traumatic hematoma of abdominal wall with infection: Had spontaneous rupture of large intra-abdominal hematoma in February during her prolonged stay. The hematoma was due to a prior fall. The hematoma became infected. Following rupture Dr Pablo performed I/D in the OR. Cultures showed e.coli. She had been on augmentin at [facility] and at home. The abdominal wound has improved considerably with Wound Vac. Would care continues to follow and change dressings M/W/F. Appreciate Dr Koroma's consultation. She has received close to 6 weeks of IV/PO antibiotics since February 06 (date of admission during prior hospital stay). She is now off all antibiotics. (14) Anemia: H/H cont to be stable. Cont Ferrous Sulfate 325mg BID. (15) Transient ischemic attack: Had TIA during prior admission. Also with h/o CVA many years ago. On plavix for secondary prevention. Ideally should be on anticoagulation because of PAF but this has been deferred due to prior intra-abdominal hematoma, etc. (16) Acute hypokalemia: resolved. (17) Candidiasis of mouth and esophagus: thrush. resolved. can likely stop the nystatin this weekend. (18) Osteoarthritis of right knee: voltaren gel qid (19) DVT prophylaxis: heparin 5000 BID /daughter updated at bedside they are taking pt home with caregiver Subjective Patient seen and examined at the bedside. Patient is alert oriented x3. BP is better controlled. Pt failed swallow test for saliva. This was presented to the family and all possible risks discussed. All questions answered. Pt is in general very weak and failure of swallow study is presenting high risk of another aspiration pNA in near future. Pt tried position exercise, thickening fluids but per report none of it worked. Speech therapy recommend to continue he current diet with small sips.and Patient denies fever chills chest pain shortness of breath abdominal pain frequency urgency hemoptysis hematuria melena hematochezia nausea vomiting. Abdominal wound is healing properly. There is no area of erythema or swelling and redness. Wound VAC is on draining approximately 15 cc every 24 hours. Review of Systems Review of Systems: All systems reviewed & are unremarkable except as noted in HPI & below Physical Exam Constitutional: WD/WN, vitals as above well developed and + frail appearing Eyes: PERRL, conjunctivae normal, anicteric sclerae ENMT: external ear and nose normal, oropharynx normal Neck: trachea midline, no thyromegaly Respiratory: normal respiratory effort Cardiovascular: Rate/Rhythm: + irregularly irregular Chest (Breasts): normal inspection/palpation of breasts Gastrointestinal (Abdomen): normal bowel sounds, soft, nontender, no hepatosplenomegaly Skin: no rashes, warm and dry Results & Data Vital Signs (Past 12 Hours) Vital Signs Temp Pulse Pulse Resp BP Pulse Ox 04/03/19 10:20 54 L 137/71 04/03/19 10:14 51 L 04/03/19 07:08 36.4 C L 54 L 18 183/80 H 94 04/03/19 04:03 36.3 C L 53 L 18 177/76 H 96 04/03/19 00:27 52 L 04/02/19 23:43 36.4 C L 55 L 18 171/73 H 96 PG Care Time/CCT Total # of Minutes Spent Total Time Spent with Patient: Total time spent is greater than 50% in coordination of care (as documented) at patient's floor/unit and/or counseling patient: (1) Traumatic hematoma of abdominal wall with infection Encounter type: subsequent encounter Qualified Code(s): S30.1XXD - Contusion of abdominal wall, subsequent encounter; L08.9 - Local infection of the skin and subcutaneous tissue, unspecified (2) CAD (coronary artery disease) Associated angina: without angina Coronary Disease-Associated Artery/Lesion type: [place] artery [place] vs. transplanted heart: [place] heart Qualified Code(s): I25.10 - Atherosclerotic heart disease of [place] coronary artery without angina pectoris (3) CHF (congestive heart failure) Heart failure chronicity: acute Heart failure type: unspecified Qualified Code(s): I50.9 - Heart failure, unspecified (4) Anemia Anemia type: unspecified type Qualified Code(s): D64.9 - Anemia, unspecified (5) A-fib Atrial fibrillation type: unspecified Qualified Code(s): I48.91 - Unspecified atrial fibrillation (6) Dysphagia Dysphagia type: unspecified Qualified Code(s): R13.10 - Dysphagia, unspecified (7) Hyperlipidemia Hyperlipidemia type: mixed hyperlipidemia Qualified Code(s): E78.2 - Mixed hyperlipidemia (8) Hypothyroidism Hypothyroidism type: acquired Qualified Code(s): E03.9 - Hypothyroidism, unspecified (9) Osteoarthritis of right knee Osteoarthritis type: primary Qualified Code(s): M17.11 - Unilateral primary osteoarthritis, right knee (10) HTN (hypertension) Hypertension type: essential hypertension Qualified Code(s): I10 - Essential (primary) hypertension (11) Pneumonia Laterality: right Lung location: lower lobe of lung Pneumonia type: due to unspecified organism Qualified Code(s): J18.1 - Lobar pneumonia, unspecified organism (12) Asthma Asthma complication type: uncomplicated Asthma persistence: unspecified Asthma severity: unspecified severity Qualified Code(s): J45.909 - Unspecified asthma, uncomplicated
[2019-04-03] MEDS: FUROSEMIDE 20 MG in SYRINGE 0 ML IV SCH ×2 (11:12→18:15)
[2019-04-03] MEDS: AMLODIPINE BESYLATE 5 MG TAB PO SCH (12:31)
[2019-04-03] MEDS: HEPARIN SOD 5,000 UNIT/0.5 ML VIAL SQ SCH ×2 (12:36→20:43)
--- NOTE | 2019-04-03 13:35 | Cardiology Progress Note ---
Date of Service April 03, 2019 Assessment & Plan (1) Acute respiratory failure with hypoxia: Etiology at time of presentation likely secondary to volume overload and bilobar pneumonia. (2) Acute on chronic diastolic CHF (congestive heart failure): Currently on Lasix 40 mg b.i.d.. Will likely go home on once daily dosing. (3) PAF (paroxysmal atrial fibrillation): The patient remains in sinus rhythm on amiodarone. She is considered to be at high risk for long-term oral anticoagulation. (4) CAD (coronary artery disease): Nonobstructive coronary artery disease identified on cardiac catheterization in May 2009. (5) HTN (hypertension): Adequate control on current medical regimen. Subjective Mrs. Parra is resting comfortably in the bedside chair without complaints of chest pain, dyspnea, or palpitations. Physical Exam Physical Exam: In general is well-developed well-nourished white female no acute distress. HEENT exam notes a BiPAP mask in place. Neck is supple with full carotid upstrokes. There are no carotid bruits. No jugular venous distention. There is no thyromegaly. Cardiovascular exam reveals a regular rhythm with distant heart sounds. No obvious murmurs. Lungs are clear without rales, rhonchi, wheezes. Abdomen notes a wound VAC in place. Extremities reveal intact radial artery pulses bilaterally. Trace pretibial edema. Results & Data Vital Signs (Past 12 Hours) Vital Signs Temp Pulse Pulse Resp BP BP Pulse Ox 04/03/19 12:00 36.4 C L 56 L 20 151/66 H 96 04/03/19 10:20 54 L 137/71 04/03/19 10:14 51 L 04/03/19 07:08 36.4 C L 54 L 18 183/80 H 94 04/03/19 04:03 36.3 C L 53 L 18 177/76 H 96 Laboratory Results CBC notes a hemoglobin of 10.2, hematocrit 31.5, white count 12.7, and a platelet count of [id number]. Electrolytes note a sodium of 138, potassium 3.6, chloride 104, bicarb 29, BUN 33, creatinine 0.68, and glucose of 83. Diagnostic Findings environmental monitoring technician notes normal sinus rhythm without evidence of atrial fibrillation. PG Care Time/CCT Total # of Minutes Spent Total Time Spent with Patient: Total time spent is greater than 50% in coordination of care (as documented) at patient's floor/unit and/or counseling patient: (1) CAD (coronary artery disease) Associated angina: without angina Coronary Disease-Associated Artery/Lesion type: [place] artery [place] vs. transplanted heart: [place] heart Qualified Code(s): I25.10 - Atherosclerotic heart disease of [place] coronary artery without angina pectoris (2) HTN (hypertension) Hypertension type: essential hypertension Qualified Code(s): I10 - Essential (primary) hypertension
--- NOTE | 2019-04-03 16:51 | Palliative Care Progress Note ---
Date of Service April 03, 2019 Assessment & Plan (1) Goals of care, counseling/discussion: Patient is an 88-year-old female with a past medical history significant for newly diagnosed paroxysmal A. 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 After this hospitalization patient spent 2 weeks at [facility] and was recently discharged on 03/15. Patient had done well in rehab. Patient had a choking episode on 03/16 and continue to have worsening shortness of breath over the next couple days. On 03/18 patient was having severe shortness of breath and was brought to the emergency room. In the emergency room chest x-ray showed cardiomegaly with edema, white count was 16.69 with a hemoglobin of 8.8. Patient was admitted and diuresed-her hemoglobin dropped to 7.5 and she was t ransfused. Hemoglobin stable. Patient has required aggressive diuresis-she was able to be weaned down to 1 L of O2-now requiring 2 L via nasal cannula. Patient is now on hospital day 16-patient anxious to return home-patient has home health agency ready when she is discharged Patient awake alert and oriented-able to participate in conversation. Patient named her daughterGaby as medical decision-maker on previous visit. Patient's daughter and at bedside CODE STATUS-full code, she would not want prolonged intubation or be maintained on life support for an indefinite period of time. Patient's daughter is aware of patient's wishes-has had discussions in the past regarding her living will. -Paroxysmal A. fib-this is a relatively new diagnosis-patient was on amiodarone and metoprolol and had an episode of A. fib while on amiodarone-patient converted on Cardizem -now back on amiodarone and metoprolol. Patient is on Plavix for AC -Diastolic CHF-patient is being aggressively diuresed, patient's renal function tolerated diuresis-now transitioning to p.o. Lasix. Respiratory status improving with aggressive diuresis-patient's BUN rises to the low 50s-required some hydration, baseline BUN appears to be in the low 30s -Acute respiratory failure with hypoxia-underlying COPD as well as diastolic heart failure and possible pneumonia contributing-patient improving, weaning O2 as tolerated -COPD-continue respiratory support, diuresis, now on her Breo inhaler. Antibiotics discontinued -Abdominal wall abscess-wound VAC in place, wound healing well-wound images reviewed. Patient will continue to follow-up with wound clinic -Depression-has been doing well on current dose of Prozac -Hypothyroid-on Synthroid Will continue to follow and assist patient and family with medical decision making as needed. Patient and family hope to be discharged home soon-feel she will improve with improved nighttime sleeping as well as rest. 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 Discussed with daughter in private given her fragile fluid status and renal function as well as chronic aspiration-discussed when and how to consult hospice when patient and family are ready. (2) PAF (paroxysmal atrial fibrillation): (3) Acute on chronic diastolic CHF (congestive heart failure): (4) Acute respiratory failure with hypoxia: (5) COPD (chronic obstructive pulmonary disease): COPD type: COPD with acute exacerbation Qualified Code(s): J44.1 - Chronic obstructive pulmonary disease with (acute) exacerbation (6) Abscess of abdominal wall: (2) Acute on chronic diastolic CHF (congestive heart failure): Improving with aggressive diuresis-on Lasix twice daily (3) Acute respiratory failure with hypoxia: Improving, did need O2 titrated to 2 L via nasal cannula-on BiPAP nightly, overall appears better (4) COPD (chronic obstructive pulmonary disease): Slowly improving with aggressive pulmonary toilet, titrating O2 as required (5) Abscess of abdominal wall: Healing with wound VAC (6) PAF (paroxysmal atrial fibrillation): Rate well controlled on amiodarone and metoprolol Subjective Patient more alert on exam this afternoon, patient's and daughter at bedside. Patient feels comfortable on O2 at 2 L. BUN is back at baseline in the low 30's. Patient hoping to return home tomorrow. Discussed at length with patient and family her fragile state between fluid status and renal function-both patient and family understand. Spoke with daughter in hallway at length regarding patient's current status as well as eventual expected decline regarding fluid status and renal function as well as her chronic aspiration. Daughter has had extended discussions with patient regarding her wishes, etc. Discussed at what point getting hospice involved would be appropriate for the patient and family as well as instructing daughter on how to contact the hospice agency. Patient and family reports she was seen by PT/OT today and was able to ambulate down the hallway-do not know if O2 test was done-she would likely benefit from being discharged home on O2. Review of Systems Review of Systems: Patient denies fever, chills, chest pain or abdominal pain, positive slight increased work of breathing-patient reports she is comfortable Physical Exam Physical Exam: PE: More alert on exam this a.m., appears less fatigued HEENT: EOMI, hearing within normal limits Respirations: Slightly labored, no rhonchi or wheezes, on O2 at 2 L CV: Regular rate Abdomen: Soft, nontender Neuro: Alert and oriented x4 Results & Data Vital Signs (Past 12 Hours) Vital Signs Temp Pulse Pulse Resp BP BP Pulse Ox 04/03/19 15:22 97.5 F L 59 L 20 156/77 H 97 04/03/19 12:00 97.5 F L 56 L 20 151/66 H 96 04/03/19 10:20 54 L 137/71 04/03/19 10:14 51 L 04/03/19 07:08 97.5 F L 54 L 18 183/80 H 94 PG Care Time/CCT Total # of Minutes Spent Total Time Spent with Patient: Total time spent is greater than 50% in coordination of care (as documented) at patient's floor/unit and/or counseling patient: Prolonged Care Time Prolonged Care Time: Yes Total Prolonged Care Time: 30 Time Spent Attending Total time spent 65 minutes with greater than 50% of the time spent at bedside discussing patient's current condition as well as educating patient's daughter regarding when and how to consult hospice depending on how patient does after discharge. Critical Care Time Prolonged Care Time Prolonged Care Time: Yes Total Prolonged Care Time: 30 65 (1) COPD (chronic obstructive pulmonary disease) COPD type: COPD with acute exacerbation Qualified Code(s): J44.1 - Chronic obstructive pulmonary disease with (acute) exacerbation
[2019-04-03] MEDS: MULTIVITAMIN TAB PO SCH (20:41)
[2019-04-03] MEDS: LEVOTHYROXINE SODIUM 25 MCG TABLET PO SCH (20:42)
[2019-04-03] MEDS: ATORVASTATIN 20 MG TAB PO SCH (20:42)
[2019-04-03] MEDS: FLUOXETINE HCL 20 MG CAP PO SCH (20:42)
[2019-04-04 07:10] LABS: Basophils # (auto) 0.03 K/uL (0-0.2); Basophils % (auto) 0.2 %; Eosinophils % (auto) 3.6 %; Hematocrit (blood only) 30.2 % (37-47); Hemoglobin 9.9 g/dL (12.0-16.0); Immature Granulocytes # (auto) 0.18 K/uL (0.00-0.02); Immature Granulocytes % (auto) 1.3 %; Lymphocytes # (auto) 1.23 K/uL (1.2-3.4); Lymphocytes % (auto) 8.8 %; Mean Corpuscular Hemoglobin 28.1 pg (25-34); Mean Corpuscular Hgb Conc 32.8 g/dL (32-36); Mean Corpuscular Volume 85.8 fL (80-100); Mean Platelet Volume 8.9 fL (7.4-10.4); Monocytes # (auto) 1.28 K/uL (0.11-0.59); Monocytes % (auto) 9.2 %; Neutrophils # (auto) 10.71 K/uL (1.4-6.5); Neutrophils % (auto) 76.9 %; Platelet Count 334 K/uL (130-400); RDW Coefficient of Variation 17.3 % (11.5-14.5); RDW Standard Deviation 53.7 fL (36.4-46.3); Red Blood Count 3.52 M/uL (4.2-5.4); White Blood Count 13.93 K/uL (4.8-10.8)
[2019-04-04 07:47] LABS: Albumin Level 2.4 gm/dl (3.4-5.0); BUN Creatinine Ratio 46.8 (10-20); Calcium 8.8 mg/dl (8.5-10.1); Creatinine Clr Calc Pharmacy 52.4 ml/min; Est GFR (African American) 90.7; Est GFR (Non-African American) 78.3; Potassium 3.2 mmol/L (3.5-5.1)
[2019-04-04 07:49] LABS: Albumin Globulin Ratio 0.7 (0.9-2); Bilirubin,Total 0.6 mg/dl (0.2-1); Globulin 3.5 gm/dl (2.5-4.0); Total Protein 5.9 gm/dl (6.4-8.2)
[2019-04-04] MEDS: FERROUS SULFATE 325 MG TAB PO SCH ×2 (08:41→16:56)
[2019-04-04] MEDS: FLUTICASONE/VILANTEROL INHALER INH SCH (08:42)
[2019-04-04] MEDS: FLUOXETINE HCL 10 MG CAP PO SCH (08:43)
[2019-04-04] MEDS: AMIODARONE 200 MG TAB PO SCH (08:43)
[2019-04-04] MEDS: SACCHAROMYCES BOULARDII 250 MG CAP PO SCH (08:43)
[2019-04-04] MEDS: NYSTATIN SUSP 500,000 U/5 ML UDC PO SCH ×4 (08:44→20:28)
[2019-04-04] MEDS: NYSTATIN POWDER 15GM BTL EXT SCH ×3 (08:44→20:28)
[2019-04-04] MEDS: AMLODIPINE BESYLATE 5 MG TAB PO SCH (08:44)
[2019-04-04] MEDS: MAGNESIUM OXIDE 400 MG TAB PO SCH ×2 (08:44→20:26)
[2019-04-04] MEDS: CALCIUM CARBONATE 1250MG TAB PO SCH ×2 (08:45→20:28)
[2019-04-04] MEDS: predniSONE 20 MG TAB PO SCH (08:45)
[2019-04-04] MEDS: CLOPIDOGREL BISULFATE 75 MG TAB PO SCH (08:45)
[2019-04-04] MEDS: CHOLECALCIFEROL 1,000 UNITS TAB PO SCH (08:47)
[2019-04-04] MEDS: METOPROLOL SUCC 50MG EXT REL TAB PO SCH (08:47)
[2019-04-04] MEDS: PANTOprazole 40 MG TAB PO SCH (08:47)
[2019-04-04] MEDS: DICLOFENAC SOD 1% GEL 100 GM TUBE EXT SCH ×4 (08:47→20:29)
[2019-04-04] MEDS: HEPARIN SOD 5,000 UNIT/0.5 ML VIAL SQ SCH ×2 (08:49→20:31)
[2019-04-04] MEDS ORDERED: FUROSEMIDE 20 MG in SYRINGE 0 ML IV SCH ×2 (09:00→17:00)
[2019-04-04] MEDS ORDERED: SODIUM CHLORIDE 0.65% NA SOLN 45 ML (OCEAN) ONE (09:14)
[2019-04-04] MEDS ORDERED: SODIUM CHLORIDE 0.65% NA SOLN 45 ML (OCEAN) PRN (09:35)
--- NOTE | 2019-04-04 09:59 | XRay Report ---
XR chest 1V portable HISTORY: 88 years-old Female SOB acute shortness of breath COMPARISON: Chest radiograph 03/28/2019, chest CT 03/29/2019 TECHNIQUE: Portable AP view of the chest FINDINGS: Cardiac silhouette is enlarged, unchanged. Calcified plaque of the thoracic aortic arch. Pulmonary va scular congestion. Mild progression of the bilateral mixed interstitial and alveolar opacities. Uncha nged mild blunting of the costophrenic angles with mild right hemidiaphragmatic elevation. Degenerati ve changes of the shoulders and spine. IMPRESSION: 1. Bilateral mixed interstitial and alveolar opacities have mildly worsened from comparison study. Fi ndings are suggestive of pulmonary edema versus a nonspecific infectious or inflammatory pneumonitis. 2. Cardiomegaly. The above report was generated using voice recognition software. It may contain grammatical, syntax o r spelling errors. Electronically signed by: Shay Yousif M.D. 04/04/2019 9:58 AM
--- NOTE | 2019-04-04 11:34 | Hospitalist Progress Note ---
Date of Service April 04, 2019 Assessment & Plan (1) Aspiration pneumonia: Restart his antibiotics metronidazole and linezolid for aspiration pneumonia since patient has been in the hospital for almost 2 months and appears that she aspirated saliva again patient also has allergic reactions to many other antibiotics and with linezolid we will try to cover for MRSA. In regard of pulmonary edema started Lasix 40 twice daily. Will reduce the dose to 40 once a day once when patient is better. Monitor in and out daily. Daily weight. Case discussed with palliative care and they agreed that patient would not have more benefits from hospice than being a full code in consideration to her ove rall very poor prognosis and health situation. Present on Admission?: Yes (2) Dysphagia: Pt failed swallow study. She is not candidate for feeding tube, nor her family wants it. Per speech pt remains on heart healthy diet with small sips. This finding was discussed with daughter and son in law, and discussed high risk of recurrent pneumonia due to aspiration of saliva. Recommended comfort and quality of life. (3) Acute respiratory failure with hypoxia: Continues to improve.Pt is still on 2 L. Continue titrating supplemental O2 while keeping O2 saturation above 92%. Tapering down prednisone. Continue NC O2 during day with night-time CPAP. (4) CHF (congestive heart failure): Acute diastolic. Echo 02/12/19 with preserved EF. Possible etiologies for her decompensated diastolic CHF -- uncontrolled a.fib, lack of diuretic (was on HCTZ when she left [facility]; it was apparently d/c while at rehab), dietary issues, etc. No evidence of ischemia. Appreciate Dr Horner's recommendations. Continue beta david (metoprolol tartrate 50mg BID). Plan to restart PO lasix tomorrow. (5) Pneumonia: Bilateral. Had received IV antibiotics since ER presentation. These were stopped this week after 10+ days of therapy. Previous blood cx's were negative. (6) Asthma: with exacerbation at admission. received about 5 days of IV steroids early in admission. steroids stopped, then prednisone restarted by Dr Ríos on 03/28/19 due to lingering NC O2 requirement and slow clinical improvement. Dr Lowe has seen. recommends continuing current care plan. (7) A-fib: During her previous prolonged hospitalization she had 2 episodes of PAF with one lasting over 24 hours. She probably had runs of PAF outside the hospital. She had additional PAF runs during this hospital stay. Remains on amiodarone 200mg daily and metoprolol 50mg BID. Appreciate cardiology consultation. No anticoagulation at this time. No PAF in several days. (8) CAD (coronary artery disease): History of such. No ischemic symptoms at this time. Cont BB, statin, plavix. (9) Chronic kidney disease, stage 3a: Lasix , 1/2 of the home dose. Albumin for hypoalbuminemia to shift the fluids from the third space. Strict I/O PT/OT (10) HTN (hypertension): Cont home medications. Stable. (11) Hyperlipidemia: Cont statin. (12) Hypothyroidism: TSH mildly elevated at presentation. Takes synthroid 25mcg daily. Repeat TFTs yesterday acceptable. No change at this time in synthroid dose. (13) Obstructive sleep apnea, adult: Cont home CPAP unit at . (14) Traumatic hematoma of abdominal wall with infection: Had spontaneous rupture of large intra-abdominal hematoma in February during her prolonged stay. The hematoma was due to a prior fall. The hematoma became infected. Following rupture Dr Pablo performed I/D in the OR. Cultures showed e.coli. She had been on augmentin at [facility] and at home. The abdominal wound has improved considerably with Wound Vac. Would care continues to follow and change dressings M/W/F. Appreciate Dr Koroma's consultation. She has received close to 6 weeks of IV/PO antibiotics since February 06 (date of admission during prior hospital stay). She is now off all antibiotics. (15) Anemia: H/H cont to be stable. Cont Ferrous Sulfate 325mg BID. (16) Transient ischemic attack: Had TIA during prior admission. Also with h/o CVA many years ago. On plavix for secondary prevention. Ideally should be on anticoagulation because of PAF but this has been deferred due to prior intra-abdominal hematoma, etc. (17) Acute hypokalemia: resolved. (18) Candidiasis of mouth and esophagus: thrush. resolved. can likely stop the nystatin this weekend. (19) Osteoarthritis of right knee: voltaren gel qid (20) DVT prophylaxis: heparin 5000 BID /daughter updated at bedside they are taking pt home with caregiver Subjective Patient seen and examined at the bedside. Patient's daughter stated that she noted patient is more short short of breath today than yesterday ordered x-rays. While x-rays do not show an episode of pneumonia there is a definitely pneumonitis associated with edema most likely due to recent aspiration of the saliva. Patient white blood cell count is also elevated to 13 K. Started antibiotics and furosemide increased from 20 twice daily to 40 twice daily. Patient still continues to be afebrile. She is able to do physical therapy. She denies fever chills chest pain shortness of breath abdominal pain frequency or urgency. Review of Systems Review of Systems: All systems reviewed & are unremarkable except as noted in HPI & below Ear, Nose, Mouth, Throat: + dysphagia; no nasal congestion and no sore throat Musculoskeletal: + joint pain (right knee - chronic) Integumentary: + rash Endocrine: no diabetes Physical Exam Constitutional: WD/WN, vitals as above well developed and + frail appearing Eyes: PERRL, conjunctivae normal, anicteric sclerae ENMT: external ear and nose normal, oropharynx normal Neck: trachea midline, no thyromegaly Respiratory: normal respiratory effort Auscultation: + wheezes Cardiovascular: Rate/Rhythm: + irregularly irregular Chest (Breasts): normal inspection/palpation of breasts Gastrointestinal (Abdomen): normal bowel sounds, soft, nontender, no hepatosplenomegaly Skin: no rashes, warm and dry Results & Data Vital Signs (Past 12 Hours) Vital Signs Temp Pulse Pulse Resp BP BP Pulse Ox 04/04/19 11:09 36.6 C 69 17 164/71 H 90 04/04/19 07:07 36.6 C 62 17 183/78 H 90 04/04/19 04:09 61 170/66 H 04/04/19 03:27 36.5 C 60 18 179/76 H 92 04/04/19 00:00 62 04/03/19 23:54 36.6 C 60 18 164/73 H 92 PG Care Time/CCT Total # of Minutes Spent Total Time Spent with Patient: Total time spent is greater than 50% in coordination of care (as documented) at patient's floor/unit and/or counseling patient: (1) Traumatic hematoma of abdominal wall with infection Encounter type: subsequent encounter Qualified Code(s): S30.1XXD - Contusion of abdominal wall, subsequent encounter; L08.9 - Local infection of the skin and subcutaneous tissue, unspecified (2) CAD (coronary artery disease) Associated angina: without angina Coronary Disease-Associated Artery/Lesion type: [place] artery [place] vs. transplanted heart: [place] heart Qualified Code(s): I25.10 - Atherosclerotic heart disease of [place] coronary artery without angina pectoris (3) CHF (congestive heart failure) Heart failure chronicity: acute Heart failure type: unspecified Qualified Code(s): I50.9 - Heart failure, unspecified (4) Anemia Anemia type: unspecified type Qualified Code(s): D64.9 - Anemia, unspecified (5) A-fib Atrial fibrillation type: unspecified Qualified Code(s): I48.91 - Unspecified atrial fibrillation (6) Dysphagia Dysphagia type: unspecified Qualified Code(s): R13.10 - Dysphagia, unspecified (7) Hyperlipidemia Hyperlipidemia type: mixed hyperlipidemia Qualified Code(s): E78.2 - Mixed hyperlipidemia (8) Hypothyroidism Hypothyroidism type: acquired Qualified Code(s): E03.9 - Hypothyroidism, unspecified (9) Osteoarthritis of right knee Osteoarthritis type: primary Qualified Code(s): M17.11 - Unilateral primary osteoarthritis, right knee (10) HTN (hypertension) Hypertension type: essential hypertension Qualified Code(s): I10 - Essential (primary) hypertension (11) Pneumonia Laterality: right Lung location: lower lobe of lung Pneumonia type: due to unspecified organism Qualified Code(s): J18.1 - Lobar pneumonia, unspecified organism (12) Asthma Asthma complication type: uncomplicated Asthma persistence: unspecified Asthma severity: unspecified severity Qualified Code(s): J45.909 - Unspecified asthma, uncomplicated
[2019-04-04] MEDS ORDERED: DiphenhydrAMINE HCL 50 MG/ML VIAL IV PRN ×2 (11:51→11:55)
--- NOTE | 2019-04-04 12:21 | Cardiology Progress Note ---
Date of Service April 04, 2019 Assessment & Plan (1) Acute respiratory failure with hypoxia: Resolved. Etiology at time of presentation likely secondary to volume overload and bilobar pneumonia(? Aspiration). (2) Acute on chronic diastolic CHF (congestive heart failure): Currently on Lasix 40 mg po b.i.d.. Will likely go home on once daily dosing. (3) PAF (paroxysmal atrial fibrillation): The patient remains in sinus rhythm on oral amiodarone. She is considered to be too high risk for long-term oral anticoagulation. (4) CAD (coronary artery disease): Nonobstructive coronary artery disease on cardiac catheterization in May 2009. (5) HTN (hypertension): Adequate control on current medical regimen. Subjective The patient is resting comfortably in bed without complaints of chest pain, dyspnea, or palpitations. She is axis her hospital discharge. Results of her swallowing study discussed with her daughter at length. Physical Exam Physical Exam: In general is well-developed well-nourished white female no acute distress. HEENT exam notes a BiPAP mask in place. Neck is supple with full carotid upstrokes. There are no carotid bruits. No jugular venous distention. There is no thyromegaly. Cardiovascular exam reveals a regular rhythm with distant heart sounds. No obvious murmurs. Lungs are clear without rales, rhonchi, wheezes. Abdomen notes a wound VAC in place. Extremities reveal intact radial artery pulses bilaterally. Trace pretibial edema. 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 PG Care Time/CCT Total # of Minutes Spent Total Time Spent with Patient: Total time spent is greater than 50% in coordination of care (as documented) at patient's floor/unit and/or counseling patient: (1) CAD (coronary artery disease) Associated angina: without angina Coronary Disease-Associated Artery/Lesion type: [place] artery [place] vs. transplanted heart: [place] heart Qualified Code(s): I25.10 - Atherosclerotic heart disease of [place] coronary artery without angina pectoris (2) HTN (hypertension) Hypertension type: essential hypertension Qualified Code(s): I10 - Essential (primary) hypertension
[2019-04-04] MEDS: FLUTICASONE HFA 110MCG INHALER INH SCH (12:47)
[2019-04-04] MEDS: metroNIDAZOLE 500 MG/100 ML BAG IV SCH ×2 (13:25→20:19)
[2019-04-04] MEDS: LINEZOLID 600 MG TAB PO SCH ×2 (13:25→20:30)
[2019-04-04] MEDS ORDERED: FUROSEMIDE 20 MG in SYRINGE 0 ML IV ONE (15:00)
[2019-04-04] MEDS: ATORVASTATIN 20 MG TAB PO SCH (20:26)
[2019-04-04] MEDS: MULTIVITAMIN TAB PO SCH (20:27)
[2019-04-04] MEDS: FLUOXETINE HCL 20 MG CAP PO SCH (20:29)
[2019-04-04] MEDS: LEVOTHYROXINE SODIUM 25 MCG TABLET PO SCH (20:30)
[2019-04-04] MEDS: FUROSEMIDE 40 MG in SYRINGE 0 ML IV SCH (22:38)
[2019-04-04] MEDS: POTASSIUM CHLORIDE / WTR 10 MEQ/100 ML PLCT IV SCH (23:13)
[2019-04-05] MEDS: POTASSIUM CHLORIDE / WTR 10 MEQ/100 ML PLCT IV SCH ×3 (00:41→03:52)
[2019-04-05] MEDS: metroNIDAZOLE 500 MG/100 ML BAG IV SCH ×3 (05:32→22:20)
[2019-04-05 07:10] LABS: Basophils # (auto) 0.01 K/uL (0-0.2); Basophils % (auto) 0.1 %; Eosinophils # (auto) 0.43 K/uL (0-0.5); Eosinophils % (auto) 2.8 %; Hematocrit (blood only) 29.6 % (37-47); Hemoglobin 9.7 g/dL (12.0-16.0); Immature Granulocytes # (auto) 0.21 K/uL (0.00-0.02); Immature Granulocytes % (auto) 1.4 %; Lymphocytes % (auto) 8.6 %; Mean Corpuscular Hemoglobin 27.9 pg (25-34); Mean Corpuscular Hgb Conc 32.8 g/dL (32-36); Mean Corpuscular Volume 85.1 fL (80-100); Mean Platelet Volume 8.5 fL (7.4-10.4); Monocytes # (auto) 1.01 K/uL (0.11-0.59); Monocytes % (auto) 6.7 %; Neutrophils # (auto) 12.14 K/uL (1.4-6.5); Neutrophils % (auto) 80.4 %; Platelet Count 339 K/uL (130-400); RDW Coefficient of Variation 17.4 % (11.5-14.5); RDW Standard Deviation 54.4 fL (36.4-46.3); Red Blood Count 3.48 M/uL (4.2-5.4)
[2019-04-05 07:45] LABS: Albumin Level 2.2 gm/dl (3.4-5.0); BUN Creatinine Ratio 36.3 (10-20); Calcium 8.4 mg/dl (8.5-10.1); Creatinine Clr Calc Pharmacy 48.5 ml/min; Est GFR (African American) 83.1; Est GFR (Non-African American) 71.7; Potassium 3.7 mmol/L (3.5-5.1)
[2019-04-05 07:48] LABS: Albumin Globulin Ratio 0.6 (0.9-2); Bilirubin,Total 0.5 mg/dl (0.2-1); Globulin 3.4 gm/dl (2.5-4.0); Total Protein 5.6 gm/dl (6.4-8.2)
[2019-04-05] MEDS: FLUTICASONE/VILANTEROL INHALER INH SCH (07:52)
[2019-04-05] MEDS: AMIODARONE 200 MG TAB PO SCH (07:52)
[2019-04-05] MEDS: FERROUS SULFATE 325 MG TAB PO SCH ×2 (07:52→17:29)
[2019-04-05] MEDS: FLUTICASONE HFA 110MCG INHALER INH SCH (07:53)
[2019-04-05] MEDS: SACCHAROMYCES BOULARDII 250 MG CAP PO SCH (07:53)
[2019-04-05] MEDS: FUROSEMIDE 40 MG in SYRINGE 0 ML IV SCH ×2 (07:53→22:17)
[2019-04-05] MEDS: NYSTATIN POWDER 15GM BTL EXT SCH ×3 (07:54→22:23)
[2019-04-05] MEDS: MAGNESIUM OXIDE 400 MG TAB PO SCH ×2 (07:54→22:35)
[2019-04-05] MEDS: CLOPIDOGREL BISULFATE 75 MG TAB PO SCH (07:55)
[2019-04-05] MEDS: NYSTATIN SUSP 500,000 U/5 ML UDC PO SCH ×2 (07:55→12:44)
[2019-04-05] MEDS: AMLODIPINE BESYLATE 5 MG TAB PO SCH (07:55)
[2019-04-05] MEDS: FLUOXETINE HCL 10 MG CAP PO SCH ×2 (07:56→22:35)
[2019-04-05] MEDS: DICLOFENAC SOD 1% GEL 100 GM TUBE EXT SCH ×4 (07:56→22:23)
[2019-04-05] MEDS: predniSONE 20 MG TAB PO SCH (07:56)
[2019-04-05] MEDS: CHOLECALCIFEROL 1,000 UNITS TAB PO SCH (07:56)
[2019-04-05] MEDS: METOPROLOL SUCC 50MG EXT REL TAB PO SCH (07:56)
[2019-04-05] MEDS: LINEZOLID 600 MG TAB PO SCH ×2 (07:57→22:35)
[2019-04-05] MEDS: CALCIUM CARBONATE 1250MG TAB PO SCH ×2 (07:57→22:35)
[2019-04-05] MEDS: HEPARIN SOD 5,000 UNIT/0.5 ML VIAL SQ SCH ×2 (07:58→22:20)
--- NOTE | 2019-04-05 12:16 | Cardiology Progress Note ---
Date of Service April 05, 2019 Assessment & Plan (1) Acute respiratory failure with hypoxia: Had an episode of iatrogenic CHF yesterday. Responded to intravenous diuretics. Etiology at time of presentation likely secondary to volume overload and bilobar pneumonia(? Aspiration). (2) Acute on chronic diastolic CHF (congestive heart failure): Will likely go home on once daily dosing of Lasix. (3) PAF (paroxysmal atrial fibrillation): The patient remains in sinus rhythm on oral amiodarone. She is considered to be too high risk for long-term oral anticoagulation. (4) CAD (coronary artery disease): Nonobstructive coronary artery disease on cardiac catheterization in May 2009. (5) HTN (hypertension): Adequate control. Subjective The patient is resting comfortably in bed complaints of chest pain or dyspnea. Greatly improved after intravenous Lasix. Physical Exam Physical Exam: In general is well-developed well-nourished white female no acute distress. HEENT exam notes a BiPAP mask in place. Neck is supple with full carotid upstrokes. There are no carotid bruits. No jugular venous distention. There is no thyromegaly. Cardiovascular exam reveals a regular rhythm with distant heart sounds. No obvious murmurs. Lungs are clear without rales, rhonchi, wheezes. Abdomen notes a wound VAC in place. Extremities reveal intact radial artery pulses bilaterally. Trace pretibial edema. 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 No evidence of atrial fibrillation. PG Care Time/CCT Total # of Minutes Spent Total Time Spent with Patient: Total time spent is greater than 50% in coordination of care (as documented) at patient's floor/unit and/or counseling patient: (1) CAD (coronary artery disease) Coronary Disease-Associated Artery/Lesion type: [place] artery [place] vs. transplanted heart: [place] heart Associated angina: without angina Qualified Code(s): I25.10 - Atherosclerotic heart disease of [place] coronary artery without angina pectoris (2) HTN (hypertension) Hypertension type: essential hypertension Qualified Code(s): I10 - Essential (primary) hypertension
--- NOTE | 2019-04-05 14:53 | Palliative Care Progress Note ---
Date of Service April 05, 2019 Assessment & Plan (1) Goals of care, counseling/discussion: Patient is an 88-year-old female with a past medical history significant for newly diagnosed paroxysmal A. 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 After this hospitalization patient spent 2 weeks at [facility] and was recently discharged on 03/15. Patient had done well in rehab. Patient had a choking episode on 03/16 and continue to have worsening shortness of breath over the next couple days. On 03/18 patient was having severe shortness of breath and was brought to the emergency room. In the emergency room chest x-ray showed cardiomegaly with edema, white count was 16.69 with a hemoglobin of 8.8. Patient was admitted and diuresed-her hemoglobin dropped to 7.5 and she was t ransfused. Hemoglobin stable. Patient has required aggressive diuresis-she was able to be weaned down to 1 L of O2-now requiring 2 L via nasal cannula. Patient is now on hospital day 18-patient anxious to return home-patient has home health agency ready when she is discharged, she will continue with speech therapy as an outpatient Patient awake alert and oriented-able to participate in conversation. Patient named her daughterGaby as medical decision-maker on previous visit. Patient's daughter at bedside CODE STATUS-full code, she would not want prolonged intubation or be maintained on life support for an indefinite period of time. Patient's daughter is aware of patient's wishes-has had discussions in the past regarding her living will. -Paroxysmal A. fib-this is a relatively new diagnosis-patient was on amiodarone and metoprolol and had an episode of A. fib while on amiodarone-patient converted on Cardizem -now back on amiodarone and metoprolol. Patient is on Plavix for AC -Diastolic CHF-patient is being aggressively diuresed, patient's renal function tolerated diuresis. Respiratory status improving with aggressive diuresis- patient's BUN rises to the low 50s-required some hydration, baseline BUN appears to be in the low 30s -Acute respiratory failure with hypoxia-underlying COPD as well as diastolic heart failure and possible pneumonia contributing-patient improving, weaning O2 as tolerated -COPD-continue respiratory support, diuresis, now on her Breo inhaler. Patient restarted on IV Flagyl and p.o. linezolid, continues on prednisone taper -Abdominal wall abscess-wound VAC in place, wound healing well-wound images reviewed. Patient will continue to follow-up with wound clinic -Depression-has been doing well on current dose of Prozac -Hypothyroid-on Synthroid Will continue to follow and assist patient and family with medical decision making as needed. Patient and family hope to be discharged home tomorrow-feel she will improve with improved nighttime sleeping as well as rest. Both patient and family planning on home PT/OT, as well as outpatient [employer]. Patient to be discharged on home O2 Previously discussed with daughter, in private, that given her fragile fluid status and renal function as well as chronic aspiration-discussed when and how to consult hospice when patient and family are ready. (2) PAF (paroxysmal atrial fibrillation): (3) Acute on chronic diastolic CHF (congestive heart failure): (4) Acute respiratory failure with hypoxia: (5) COPD (chronic obstructive pulmonary disease): COPD type: COPD with acute exacerbation Qualified Code(s): J44.1 - Chronic obstructive pulmonary disease with (acute) exacerbation (6) Abscess of abdominal wall: (2) Acute on chronic diastolic CHF (congestive heart failure): Improving with aggressive diuresis-on Lasix twice daily (3) Acute respiratory failure with hypoxia: Improving, did need O2 titrated to 2 L via nasal cannula-on BiPAP nightly, overall appears better (4) COPD (chronic obstructive pulmonary disease): Slowly improving with aggressive pulmonary toilet, titrating O2 as required (5) Abscess of abdominal wall: Healing with wound VAC (6) PAF (paroxysmal atrial fibrillation): Rate well controlled on amiodarone and metoprolol Subjective Patient seen and examined in her room, patient's daughter at bedside. Patient reports she had a decent night sleep last p.m., feels she is improving. Patient was able to ambulate in the hallway with PT earlier today. Patient still requiring O2 at 2 L nasal cannula. Patient was started on IV Flagyl and p.o. linezolid yesterday for possible aspiration. Patient continues on IV Lasix. Review of Systems Review of Systems: Patient denies fever, chills, chest pain, increased shortness of breath, or abdominal pain Physical Exam Physical Exam: PE: Patient appears comfortable, no acute distress HEENT: EOMI, hearing within normal limits Respirations: Clear breath sounds, unlabored, on O2 at 2 L nasal cannula CV: Regular rate, no lower extremity edema Abdomen: Soft, nontender Neuro: Alert and oriented x4 Results & Data Vital Signs (Past 12 Hours) Vital Signs Temp Pulse Resp BP Pulse Ox 04/05/19 11:25 97.7 F 60 20 153/69 H 90 04/05/19 07:30 97.7 F 56 L 20 159/76 H 94 04/05/19 04:00 97.9 F 60 20 166/80 H 94 PG Care Time/CCT Total # of Minutes Spent Total Time Spent with Patient: Total time spent is greater than 50% in coordination of care (as documented) at patient's floor/unit and/or counseling patient: Time Spent Attending Total time spent 35 minutes with greater than 50% of the time spent at bedside assessing patient's current status as well as discussing discharge plans (1) COPD (chronic obstructive pulmonary disease) COPD type: COPD with acute exacerbation Qualified Code(s): J44.1 - Chronic obstructive pulmonary disease with (acute) exacerbation
--- NOTE | 2019-04-05 20:57 | Hospitalist Progress Note ---
Date of Service April 05, 2019 Assessment & Plan (1) Aspiration pneumonia: Continue antibiotics metronidazole and linezolid for aspiration pneumonia since patient has been in the hospital for almost 2 months and appears that she aspirated saliva again patient also has allergic reactions to many other antibiotics and with linezolid we will try to cover for MRSA. In regard of pulmonary edema started Lasix 40 twice daily. Will reduce the dose to 40 once a day once when patient is better. Monitor in and out daily. Daily weight. Case discussed with palliative care and they agreed that patient would not have more benefits from hospice than being a full code in consideration to her overal l very poor prognosis and health situation. (2) Dysphagia: Pt failed swallow study. She is not candidate for feeding tube, nor her family wants it. Per speech pt remains on heart healthy diet with small sips. This finding was discussed with daughter and son in law, and discussed high risk of recurrent pneumonia due to aspiration of saliva. Recommended comfort and quality of life. (3) Acute respiratory failure with hypoxia: Continues to improve.Pt is still on 2 L. Continue titrating supplemental O2 while keeping O2 saturation above 92%. Tapering down prednisone. Continue NC O2 during day with night-time CPAP. (4) CHF (congestive heart failure): Acute diastolic. Echo 02/12/19 with preserved EF. Possible etiologies for her decompensated diastolic CHF -- uncontrolled a.fib, lack of diuretic (was on HCTZ when she left [facility]; it was apparently d/c while at rehab), dietary issues, etc. No evidence of ischemia. Appreciate Dr Horner's recommendations. Continue beta david (metoprolol tartrate 50mg BID). Plan to restart PO lasix tomorrow. (5) Pneumonia: Bilateral. Had received IV antibiotics since ER presentation. These were stopped this week after 10+ days of therapy. Previous blood cx's were negative. (6) Asthma: with exacerbation at admission. received about 5 days of IV steroids early in admission. steroids stopped, then prednisone restarted by Dr Ríos on 03/28/19 due to lingering NC O2 requirement and slow clinical improvement. Dr Lowe has seen. recommends continuing current care plan. (7) A-fib: During her previous prolonged hospitalization she had 2 episodes of PAF with one lasting over 24 hours. She probably had runs of PAF outside the hospital. She had additional PAF runs during this hospital stay. Remains on amiodarone 200mg daily and metoprolol 50mg BID. Appreciate cardiology consultation. No anticoagulation at this time. No PAF in several days. (8) CAD (coronary artery disease): History of such. No ischemic symptoms at this time. Cont BB, statin, plavix. (9) Chronic kidney disease, stage 3a: Lasix , 1/2 of the home dose. Albumin for hypoalbuminemia to shift the fluids from the third space. Strict I/O PT/OT (10) HTN (hypertension): Cont home medications. Stable. (11) Hyperlipidemia: Cont statin. (12) Hypothyroidism: TSH mildly elevated at presentation. Takes synthroid 25mcg daily. Repeat TFTs yesterday acceptable. No change at this time in synthroid dose. (13) Obstructive sleep apnea, adult: Cont home CPAP unit at . (14) Traumatic hematoma of abdominal wall with infection: Had spontaneous rupture of large intra-abdominal hematoma in February during her prolonged stay. The hematoma was due to a prior fall. The hematoma became infected. Following rupture Dr Pablo performed I/D in the OR. Cultures showed e.coli. She had been on augmentin at [facility] and at home. The abdominal wound has improved considerably with Wound Vac. Would care continues to follow and change dressings M/W/F. Appreciate Dr Koroma's consultation. She has received close to 6 weeks of IV/PO antibiotics since February 06 (date of admission during prior hospital stay). She is now off all antibiotics. (15) Anemia: H/H cont to be stable. Cont Ferrous Sulfate 325mg BID. (16) Transient ischemic attack: Had TIA during prior admission. Also with h/o CVA many years ago. On plavix for secondary prevention. Ideally should be on anticoagulation because of PAF but this has been deferred due to prior intra-abdominal hematoma, etc. (17) Acute hypokalemia: resolved. (18) Candidiasis of mouth and esophagus: thrush. resolved. can likely stop the nystatin this weekend. (19) Osteoarthritis of right knee: voltaren gel qid (20) DVT prophylaxis: heparin 5000 BID /daughter updated at bedside they are taking pt home with caregiver Subjective Patient seen and examined at the bedside. Overall improving today with Lasix and antibiotics. Plan to discharge home tomorrow with caregiver and referral to speech therapy evaluation and treatment.Prognosis not so great already discussed with daughter and son-in-law on several occasions. She understands that patient is at risk of aspiration at any time. Patient still continues to be afebrile. She is able to do physical therapy. She denies fever chills chest pain shortness of breath abdominal pain frequency or urgency. Review of Systems Review of Systems: All systems reviewed & are unremarkable except as noted in HPI & below Physical Exam Constitutional: WD/WN, vitals as above well developed and + frail appearing Eyes: PERRL, conjunctivae normal, anicteric sclerae ENMT: external ear and nose normal, oropharynx normal Neck: trachea midline, no thyromegaly Respiratory: normal respiratory effort Auscultation: + wheezes Cardiovascular: Rate/Rhythm: + irregularly irregular Chest (Breasts): normal inspection/palpation of breasts Gastrointestinal (Abdomen): normal bowel sounds, soft, nontender, no hepatosplenomegaly Skin: no rashes, warm and dry Results & Data Vital Signs (Past 12 Hours) Vital Signs Temp Pulse Pulse Resp BP Pulse Ox 04/05/19 19:29 36.3 C L 57 L 18 149/75 H 94 04/05/19 19:06 62 04/05/19 15:17 36.5 C 59 L 20 153/77 H 93 04/05/19 11:25 36.5 C 60 20 153/69 H 90 PG Care Time/CCT Total # of Minutes Spent Total Time Spent with Patient: Total time spent is greater than 50% in coordination of care (as documented) at patient's floor/unit and/or counseling patient: (1) Dysphagia Dysphagia type: unspecified Qualified Code(s): R13.10 - Dysphagia, unspecified (2) CHF (congestive heart failure) Heart failure chronicity: acute Heart failure type: unspecified Qualified Code(s): I50.9 - Heart failure, unspecified (3) Pneumonia Laterality: right Lung location: lower lobe of lung Pneumonia type: due to unspecified organism Qualified Code(s): J18.1 - Lobar pneumonia, unspecified organism (4) Asthma Asthma severity: unspecified severity Asthma persistence: unspecified Asthma complication type: uncomplicated Qualified Code(s): J45.909 - Unspecified asthma, uncomplicated (5) A-fib Atrial fibrillation type: unspecified Qualified Code(s): I48.91 - Unspecified atrial fibrillation (6) CAD (coronary artery disease) Coronary Disease-Associated Artery/Lesion type: [place] artery [place] vs. transplanted heart: [place] heart Associated angina: without angina Qualified Code(s): I25.10 - Atherosclerotic heart disease of [place] coronary artery without angina pectoris (7) HTN (hypertension) Hypertension type: essential hypertension Qualified Code(s): I10 - Essential (primary) hypertension (8) Hyperlipidemia Hyperlipidemia type: mixed hyperlipidemia Qualified Code(s): E78.2 - Mixed hyperlipidemia (9) Hypothyroidism Hypothyroidism type: acquired Qualified Code(s): E03.9 - Hypothyroidism, unspecified (10) Traumatic hematoma of abdominal wall with infection Encounter type: subsequent encounter Qualified Code(s): S30.1XXD - Contusion of abdominal wall, subsequent encounter; L08.9 - Local infection of the skin and subcutaneous tissue, unspecified (11) Anemia Anemia type: unspecified type Qualified Code(s): D64.9 - Anemia, unspecified (12) Osteoarthritis of right knee Osteoarthritis type: primary Qualified Code(s): M17.11 - Unilateral primary osteoarthritis, right knee
[2019-04-05] MEDS: MULTIVITAMIN TAB PO SCH (22:35)
[2019-04-05] MEDS: FLUOXETINE HCL 20 MG CAP PO SCH (22:35)
[2019-04-05] MEDS: ATORVASTATIN 20 MG TAB PO SCH (22:35)
[2019-04-05] MEDS: LEVOTHYROXINE SODIUM 25 MCG TABLET PO SCH (22:35)
[2019-04-06] MEDS: metroNIDAZOLE 500 MG/100 ML BAG IV SCH (04:57)
[2019-04-06] MEDS: HydrALAZINE 10 MG TAB PO PRN (06:31)
[2019-04-06] MEDS: FLUTICASONE/VILANTEROL INHALER INH SCH (09:10)
[2019-04-06] MEDS: FERROUS SULFATE 325 MG TAB PO SCH (09:10)
[2019-04-06] MEDS: AMIODARONE 200 MG TAB PO SCH (09:11)
[2019-04-06] MEDS: FLUTICASONE HFA 110MCG INHALER INH SCH (09:12)
[2019-04-06] MEDS: FUROSEMIDE 40 MG in SYRINGE 0 ML IV SCH (09:13)
[2019-04-06] MEDS: MAGNESIUM OXIDE 400 MG TAB PO SCH (09:14)
[2019-04-06] MEDS: HEPARIN SOD 5,000 UNIT/0.5 ML VIAL SQ SCH (09:14)
[2019-04-06] MEDS: NYSTATIN POWDER 15GM BTL EXT SCH ×2 (09:14→13:28)
[2019-04-06] MEDS: AMLODIPINE BESYLATE 5 MG TAB PO SCH (09:15)
[2019-04-06] MEDS: CLOPIDOGREL BISULFATE 75 MG TAB PO SCH (09:16)
[2019-04-06] MEDS: CALCIUM CARBONATE 1250MG TAB PO SCH (09:16)
[2019-04-06] MEDS: METOPROLOL SUCC 50MG EXT REL TAB PO SCH (09:17)
[2019-04-06] MEDS: CHOLECALCIFEROL 1,000 UNITS TAB PO SCH (09:17)
[2019-04-06] MEDS: predniSONE 20 MG TAB PO SCH (09:17)
[2019-04-06] MEDS: DICLOFENAC SOD 1% GEL 100 GM TUBE EXT SCH ×2 (09:18→13:28)
[2019-04-06] MEDS: LINEZOLID 600 MG TAB PO SCH (09:18)
[2019-04-06] MEDS: SACCHAROMYCES BOULARDII 250 MG CAP PO SCH (09:18)
--- NOTE | 2019-04-06 10:27 | Hospitalist Progress Note ---
Date of Service April 06, 2019 Assessment & Plan (1) Aspiration pneumonia: Continue antibiotics metronidazole and linezolid for aspiration pneumonia since patient has been in the hospital for almost 2 months and appears that she aspirated saliva again patient also has allergic reactions to many other antibiotics and with linezolid we will try to cover for MRSA. Pt is now on Lasix 40 twice daily,As per recs will reduce the dose to 40 daily on discharge home today. Monitor in and out daily. Daily weight. Case discussed with palliative care and they agreed that patient would not have more benefits from hospice than being a full code in consideration to her overall very poor prognosis and health situation. (2) Dysphagia: Pt failed swallow study. She is not candidate for feeding tube, nor her family wants it. Per speech pt remains on heart healthy diet with small sips. This finding was discussed with daughter and son in law, and discussed high risk of recurrent pneumonia due to aspiration of saliva. Recommended comfort and quality of life. (3) Acute respiratory failure with hypoxia: Continues to improve.Pt is still on 2 L. Continue titrating supplemental O2 while keeping O2 saturation above 92%. Tapering down prednisone. Continue NC O2 during day with night-time CPAP. (4) CHF (congestive heart failure): Acute diastolic. Echo 02/12/19 with preserved EF. Possible etiologies for her decompensated diastolic CHF -- uncontrolled a.fib, lack of diuretic (was on HCTZ when she left [facility]; it was apparently d/c while at rehab), dietary issues, etc. No evidence of ischemia. Appreciate Dr Horner's recommendations. Continue beta david (metoprolol tartrate 50mg BID). Plan to restart PO lasix tomorrow. (5) Pneumonia: Bilateral. Had received IV antibiotics since ER presentation. These were stopped this week after 10+ days of therapy. Previous blood cx's were negative. (6) Asthma: with exacerbation at admission. received about 5 days of IV steroids early in admission. steroids stopped, then prednisone restarted by Dr Ríos on 03/28/19 due to lingering NC O2 requirement and slow clinical improvement. Dr Lowe has seen. recommends continuing current care plan. (7) A-fib: During her previous prolonged hospitalization she had 2 episodes of PAF with one lasting over 24 hours. She probably had runs of PAF outside the hospital. She had additional PAF runs during this hospital stay. Remains on amiodarone 200mg daily and metoprolol 50mg BID. Appreciate cardiology consultation. No anticoagulation at this time. No PAF in several days. (8) CAD (coronary artery disease): History of such. No ischemic symptoms at this time. Cont BB, statin, plavix. (9) Chronic kidney disease, stage 3a: Lasix , 1/2 of the home dose. Albumin for hypoalbuminemia to shift the fluids from the third space. Strict I/O PT/OT (10) HTN (hypertension): Cont home medications. Stable. (11) Hyperlipidemia: Cont statin. (12) Hypothyroidism: TSH mildly elevated at presentation. Takes synthroid 25mcg daily. Repeat TFTs yesterday acceptable. No change at this time in synthroid dose. (13) Obstructive sleep apnea, adult: Cont home CPAP unit at . (14) Traumatic hematoma of abdominal wall with infection: Had spontaneous rupture of large intra-abdominal hematoma in February during her prolonged stay. The hematoma was due to a prior fall. The hematoma became infected. Following rupture Dr Pablo performed I/D in the OR. Cultures showed e.coli. She had been on augmentin at [facility] and at home. The abdominal wound has improved considerably with Wound Vac. Would care continues to follow and change dressings M/W/F. Appreciate Dr Koroma's consultation. She has received close to 6 weeks of IV/PO antibiotics since February 06 (date of admission during prior hospital stay). She is now off all antibiotics. (15) Anemia: H/H cont to be stable. Cont Ferrous Sulfate 325mg BID. (16) Transient ischemic attack: Had TIA during prior admission. Also with h/o CVA many years ago. On plavix for secondary prevention. Ideally should be on anticoagulation because of PAF but this has been deferred due to prior intra-abdominal hematoma, etc. (17) Acute hypokalemia: resolved. (18) Candidiasis of mouth and esophagus: thrush. resolved. can likely stop the nystatin this weekend. (19) Osteoarthritis of right knee: voltaren gel qid (20) DVT prophylaxis: heparin 5000 BID /daughter updated at bedside they are taking pt home with caregiver Subjective Patient seen and examined at the bedside. Eager to go home with home health.Overall improving with Lasix and antibiotics. Plan to discharge home tomorrow with caregiver and referral to speech therapy evaluation and treatment.Prognosis not so great already discussed with daughter and son-in-law on several occasions. She understands that patient is at risk of aspiration at any time. Patient still continues to be afebrile. She is able to do physical therapy. She denies fever chills chest pain shortness of breath abdominal pain frequency or urgency. Review of Systems Review of Systems: All systems reviewed & are unremarkable except as noted in HPI & below Physical Exam Constitutional: WD/WN, vitals as above well developed and + frail appearing Eyes: PERRL, conjunctivae normal, anicteric sclerae ENMT: external ear and nose normal, oropharynx normal Neck: trachea midline, no thyromegaly Respiratory: normal respiratory effort Cardiovascular: Rate/Rhythm: + irregularly irregular Chest (Breasts): normal inspection/palpation of breasts Gastrointestinal (Abdomen): normal bowel sounds, soft, nontender, no hepatosplenomegaly Skin: no rashes, warm and dry Results & Data Vital Signs (Past 12 Hours) Vital Signs Temp Pulse Pulse Resp BP Pulse Ox 04/06/19 07:00 36.4 C L 58 L 20 165/70 H 97 04/06/19 03:00 36.5 C 55 L 20 184/82 H 96 04/06/19 00:42 56 L 04/05/19 23:00 36.6 C 56 L 20 175/73 H 95 PG Care Time/CCT Total # of Minutes Spent Total Time Spent with Patient: Total time spent is greater than 50% in coordination of care (as documented) at patient's floor/unit and/or counseling patient: (1) Dysphagia Dysphagia type: unspecified Qualified Code(s): R13.10 - Dysphagia, unspecified (2) CHF (congestive heart failure) Heart failure chronicity: acute Heart failure type: unspecified Qualified C ode(s): I50.9 - Heart failure, unspecified (3) Pneumonia Laterality: right Lung location: lower lobe of lung Pneumonia type: due to unspecified organism Qualified Code(s): J18.1 - Lobar pneumonia, unspecified organism (4) Asthma Asthma severity: unspecified severity Asthma persistence: unspecified Asthma complication type: uncomplicated Qualified Code(s): J45.909 - Unspecified asthma, uncomplicated (5) A-fib Atrial fibrillation type: unspecified Qualified Code(s): I48.91 - Unspecified atrial fibrillation (6) CAD (coronary artery disease) Coronary Disease-Associated Artery/Lesion type: [place] artery [place] vs. transplanted heart: [place] heart Associated angina: without angina Qualified Code(s): I25.10 - Atherosclerotic heart disease of [place] coronary artery without angina pectoris (7) HTN (hypertension) Hypertension type: essential hypertension Qualified Code(s): I10 - Essential (primary) hypertension (8) Hyperlipidemia Hyperlipidemia type: mixed hyperlipidemia Qualified Code(s): E78.2 - Mixed hyperlipidemia (9) Hypothyroidism Hypothyroidism type: acquired Qualified Code(s): E03.9 - Hypothyroidism, unspecified (10) Traumatic hematoma of abdominal wall with infection Encounter type: subsequent encounter Qualified Code(s): S30.1XXD - Contusion of abdominal wall, subsequent encounter; L08.9 - Local infection of the skin and subcutaneous tissue, unspecified (11) Anemia Anemia type: unspecified type Qualified Code(s): D64.9 - Anemia, unspecified (12) Osteoarthritis of right knee Osteoarthritis type: primary Qualified Code(s): M17.11 - Unilateral primary osteoarthritis, right knee
--- NOTE | 2019-04-06 11:00 | Discharge Summary ---
Date of Service April 06, 2019 Admission HPI Per Admitting Provider Abbey 88yo female - well known to me from her recent prolonged hospitalization at [facility] from 02/06 to 03/02 due to an infected intra- abdominal hematoma requiring I/D - who presents from home with worsening cough and shortness of breath. During her previous stay she had a very large hematoma in the abdominal cavity that occurred as a result of trauma from a fall. This hematoma became secondarily infected. She required copious amounts of IV antibiotics. The hematoma ultimately spontaneously erupted through the anterior abdominal wall exuding purulent material and old blood. That same day she went to the OR with Dr Armando Pablo who performed additional I/D of the infected hematoma/abscess. Post-operatively she had wound vac placed, was transitioned to oral augmentin, and finally was discharged to [facility]. She spent about 10-14 days at [facility] rehabbing and was discharged there on 03/15/19. Family reports that during her first week at [facility] she may have had a mild cough and she was starting to use her albuterol inhaler more frequently. During the 2nd week, however, her cough and dyspnea worsened. Despite such she was able to carry on with her therapies and did well. Appetite has been good and she has had no fevers/chills. Upon arrival home the family noted her dyspnea was worse. Then, on Tuesday night while eating a chicken dinner, she choked on a piece of chicken. The cough, wheezing, and dyspnea worsened again on Tuesday. Prior to this there had been no orthopnea or PND. Last night, however, her symptoms became quite severe with significant orthopnea, increased work of breathing, and wheezing starting about 0600. 911 was called and EMS was summoned to her home; she was ultimately brought to the [facility] ER. Upon arrival she was in significant respiratory distress with retractions & increased work of breathing. ER course - NC O2, then BIPAP 10/5. Hour-long duoneb, followed by an additional duoneb. Lasix 40mg IV x 1. Solumedrol 125mg IV x 1. Zosyn x 1. With above measures the patient's respiratory status improved but she still required BIPAP upon admission. Lastly, the daughter astutely recalls that there were several times during vital sign checks at [facility] that her mother's pulse was >100 then would return to the 60s. Patient reports her abdominal wall wound has been healing nicely and has been getting smaller. The wound vac is due to be changed on 03/19/19. [facility]. Principal Diagnosis none Discharge Exam Constitutional WD/WN, vitals as above well developed and + frail appearing Eyes PERRL, conjunctivae normal, anicteric sclerae ENMT external ear and nose normal, oropharynx normal Neck trachea midline, no thyromegaly Respiratory normal respiratory effort Cardiovascular Rate/Rhythm: + irregularly irregular Chest (Breasts) normal inspection/palpation of breasts Gastrointestinal (Abdomen) normal bowel sounds, soft, nontender, no hepatosplenomegaly Musculoskeletal no cyanosis or clubbing, extremities motor strength 5/5 Skin no rashes, warm and dry abdominal wound improving-home health and wound care continues after discharge home Discharge Data Allergies Allergy/AdvReac Type Severity Reaction Status Date / Time oxycodone Allergy Mild RASH Verified 03/18/19 08:45 alendronate sodium [facility] 03/18/19 08:45 Bactrim Allergy Unknown [facility] [place] Verified 02/07/18 04:16 cefuroxime Allergy Unknown UNKNOWN ON Verified 03/18/19 08:45 LIST Cipro Allergy Unknown Unknown Verified 02/07/18 21:42 ciprofloxacin Allergy Unknown UNKNOWN ON Verified 03/18/19 08:45 LIST codeine Allergy Unknown UNKNOWN ON Verified 03/18/19 08:45 LIST gabapentin Allergy Unknown UNKNOWN ON Verified 03/18/19 08:45 LIST meperidine Allergy Unknown UNKNOWN ON Verified 03/18/19 08:45 LIST propoxyphene Allergy Unknown UNKNOWN ON Verified 03/18/19 08:45 LIST Sulfa (Sulfonamide Allergy Unknown UNKNOWN ON Verified 03/18/19 08:45 Antibiotics) LIST sulfamethoxazole Allergy Unknown [facility] LIST Verified 03/18/19 08:45 trimethoprim [facility]ergy [facility] 03/18/19 08:45 amphetamine AdvReac Severe UNKNOWN ON Verified 03/18/19 08:45 LIST dextroamphetamine AdvReac Severe UNKNOWN ON Verified 03/18/19 08:45 LIST hydrochlorothiazide AdvReac Intermediate GI DISTRESS Verified 03/18/19 08:45 methyldopa AdvReac Intermediate GI DISTRESS Verified 03/18/19 08:45 Consultations 03/18/19 09:33 ED Decision to Admit Stat 03/18/19 12:09 Consult Case Management - Discharge Planning Routine 03/18/19 18:28 Consult Cardiology Routine 03/22/19 06:26 Consult Inker Machine Routine 03/22/19 14:07 Consult Infectious Diseases Routine 03/23/19 12:21 Consult Palliative Care Routine 03/28/19 08:17 Consult Wound Care Provider Routine 03/29/19 13:21 Consult Pulmonology Routine Ordered Studies 03/29/19 11:36 CT chest wo con Routine 04/02/19 10:45 FL video swallow Routine Hospital Course (1) Aspiration pneumonia: Continue antibiotics metronidazole and linezolid for aspiration pneumonia since patient has been in the hospital for almost 2 months and appears that she aspirated saliva again patient also has allergic reactions to many other antibiotics and with linezolid we will try to cover for MRSA. Pt is now on Lasix 40 twice daily,As per recs will reduce the dose to 40 daily on discharge home today. Monitor in and out daily. Daily weight. Case discussed with palliative care and they agreed that patient would not have more benefits from hospice than being a full code in consideration to her overall very poor prognosis and health situation. (2) Dysphagia: Pt failed swallow study. She is not candidate for feeding tube, nor her family wants it. Per speech pt remains on heart healthy diet with small sips. This finding was discussed with daughter and son in law, and discussed high risk of recurrent pneumonia due to aspiration of saliva. Recommended comfort and quality of life. (3) Acute respiratory failure with hypoxia: Continues to improve.Pt is still on 2 L. Continue titrating supplemental O2 while keeping O2 saturation above 92%. Tapering down prednisone. Continue NC O2 during day with night-time CPAP. (4) CHF (congestive heart failure): Acute diastolic. Echo 02/12/19 with preserved EF. Possible etiologies for her decompensated diastolic CHF -- uncontrolled a.fib, lack of diuretic (was on HCTZ when she left [facility]; it was apparently d/c while at rehab), dietary issues, etc. No evidence of ischemia. Appreciate Dr Horner's recommendations. Continue beta david (metoprolol tartrate 50mg BID). Plan to restart PO lasix tomorrow. (5) Pneumonia: Bilateral. Had received IV antibiotics since ER presentation. These were stopped this week after 10+ days of therapy. Previous blood cx's were negative. (6) Asthma: with exacerbation at admission. received about 5 days of IV steroids early in admission. steroids stopped, then prednisone restarted by Dr Ríos on 03/28/19 due to lingering NC O2 requirement and slow clinical improvement. Dr Lowe has seen. recommends continuing current care plan. (7) A-fib: During her previous prolonged hospitalization she had 2 episodes of PAF with one lasting over 24 hours. She probably had runs of PAF outside the hospital. She had additional PAF runs during this hospital stay. Remains on amiodarone 200mg daily and metoprolol 50mg BID. Appreciate cardiology consultation. No anticoagulation at this time. No PAF in several days. (8) CAD (coronary artery disease): History of such. No ischemic symptoms at this time. Cont BB, statin, plavix. (9) Chronic kidney disease, stage 3a: Lasix , 1/2 of the home dose. Albumin for hypoalbuminemia to shift the fluids from the third space. Strict I/O PT/OT (10) HTN (hypertension): Cont home medications. Stable. (11) Hyperlipidemia: Cont statin. (12) Hypothyroidism: TSH mildly elevated at presentation. Takes synthroid 25mcg daily. Repeat TFTs yesterday acceptable. No change at this time in synthroid dose. (13) Obstructive sleep apnea, adult: Cont home CPAP unit at . (14) Traumatic hematoma of abdominal wall with infection: Had spontaneous rupture of large intra-abdominal hematoma in February during her prolonged stay. The hematoma was due to a prior fall. The hematoma became infected. Following rupture Dr Pablo performed I/D in the OR. Cultures showed e.coli. She had been on augmentin at [facility] and at home. The abdominal wound has improved considerably with Wound Vac. Would care continues to follow and change dressings M/W/F. Appreciate Dr Koroma's consultation. She has received close to 6 weeks of IV/PO antibiotics since February 06 (date of admission during prior hospital stay). She is now off all antibiotics. (15) Anemia: H/H cont to be stable. Cont Ferrous Sulfate 325mg BID. (16) Transient ischemic attack: Had TIA during prior admission. Also with h/o CVA many years ago. On plavix for secondary prevention. Ideally should be on anticoagulation because of PAF but this has been deferred due to prior intra-abdominal hematoma, etc. (17) Acute hypokalemia: resolved. (18) Candidiasis of mouth and esophagus: thrush. resolved. can likely stop the nystatin this weekend. (19) Osteoarthritis of right knee: voltaren gel qid (20) DVT prophylaxis: heparin 5000 BID /daughter updated at bedside they are taking pt home with caregiver Total Time Total Time Spent Total Time Spent (In Minutes): over 35 min Discharge Plan Discharge Items Patient Disposition: Home - Self-Care Reason For Visit: ACUTE HYPOXIC RESPIRATORY FAILURE Discharge Diagnosis: acute congestive heart failure, hypoxia, wound infection Pt is going home with supplemental O2 2L for now to keep O2 saturation above 92%. Home health wound care daily Follow up with wound care next week Follow up with Speech therapy next week Discharge Goals: Decrease discomfort, Diagnostic testing, Improve disease control and Improve function Activity: Per 'Additional Instructions' section Activity Comment: gradual improvements in activity in next 4 weeks. Activity as tolerated Lifting: Gradually increase as tolerated Bathing: Keep incision dry Bathing Comment: keep wound dry Exercise/Sports: Gradually increase as tolerated Weightbearing: Full weightbearing Non-emergency contact: Primary Care Provider Call non-emergency contact if: you have any medication questions, your symptoms worsen, your pain is not controlled, your pain is concerning for you and your temperature is above 100.5 Follow-up/Referrals: Madyson Rodríguez MD [Primary Care Provider] - 04/09/19 9:30 am (Please, follow up at [facility] with Dr. Rodríguez on TuesdayApril 09 at 9:30 am. *If you need to change this appointment, call the office at [phone].) Diet: Heart Healthy and Low Sodium (2gm) Diet Texture: Mechanical soft (ground) Addtl Provider Instructions: Follow up with your PCP in 7 days. Pt is going home with supplemental O2 2L for now to keep O2 saturation above 92%. Home health wound care daily Follow up with wound care next week Follow up with Speech therapy next week Hold Fluoxetine for next 5 days while you are taking Linezolid to avoid adverse effects. Prescriptions: New doxycycline hyclate 100 mg Capsule 100 mg PO BID Qty: 10 RF: 0 linezolid 600 mg Tablet 600 mg PO BID Qty: 10 RF: 0 prednisone 20 mg Tablet 20 mg PO DAILY Qty: 4 RF: 0 diclofenac sodium [Voltaren] 1 % Gel 1 applic EXT QID Qty: 1 RF: 0 nystatin [Nystop] 100,000 unit/gram Powder 1 applic EXT TID Qty: 1 RF: 0 Flovent HFA 110 mcg/actuation Hfa Aerosol Inhaler 2 puff inhalation DAILY Qty: 1 RF: 0 furosemide [Lasix] 40 mg tablet 40 mg PO DAILY Qty: 30 RF: 0 Continued docusate sodium 100 mg capsule 100 mg PO BID RF: 0 acetaminophen 500 mg capsule 500 mg PO Q4H MDD 6 tablets in 24 hours PRN (Reason: pain/fever) RF: 0 Lactobacillus acidophilus [Acidophilus] capsule 100 mg PO QAM RF: 0 multivitamin Tablet 1 tab PO PM RF: 0 atorvastatin 20 mg Tablet 20 mg PO HS RF: 0 fluoxetine 10 mg Tablet 10 mg PO QAM RF: 0 metoprolol succinate 100 mg Tablet Extended Release 24 Hr 100 mg PO QAM RF: 0 calcium carbonate 300 mg (750 mg) Tablet,Chewable 300 mg PO BID RF: 0 amlodipine 10 mg Tablet 10 mg PO QAM RF: 0 fluoxetine 20 mg Tablet 20 mg PO QPM RF: 0 albuterol sulfate [Ventolin HFA] 90 mcg/actuation Hfa Aerosol Inhaler 1 - 2 puff INHALATION Q4 PRN (Reason: Shortness Of Breath Or Wheezing) RF: 0 potassium chloride 10 mEq Tablet,Er Particles/Crystals 10 meq PO QAM RF: 0 cholecalciferol (vitamin D3) [Vitamin D3] 2,000 unit Capsule 2,000 unit PO QAM RF: 0 omega 5-wrd-mhu-fish oil [Fish Oil] 1,000 mg (120 mg-180 mg) Capsule 1 cap PO QAM RF: 0 Breo Ellipta 100-25 mcg/dose Blister With Device 1 inh INHALATION QAM RF: 0 levothyroxine 25 mcg tablet 25 mcg PO HS RF: 0 amiodarone 200 mg Tablet 200 mg PO QAM Qty: 30 RF: 2 magnesium oxide 400 mg (241.3 mg magnesium) Tablet 400 mg PO BID Qty: 60 RF: 0 ferrous sulfate 325 mg (65 mg iron) Tablet,Delayed Release (Dr/Ec) 325 mg PO BID Qty: 60 RF: 2 clopidogrel [Plavix] 75 mg tablet 75 mg PO QAM RF: 0 Discontinued omeprazole 20 mg capsule,delayed release(DR/EC) 20 mg PO QAM Qty: 90 RF: 0 amoxicillin-pot clavulanate [Augmentin] 875-125 mg tablet 1 tab PO BID Qty: 60 RF: 3 triamterene-hydrochlorothiazid 37.5-25 mg capsule 1 cap PO DAILY Qty: 90 RF: 0 lisinopril 40 mg tablet 40 mg PO DAILY Qty: 90 RF: 0 Stand-Alone Forms: [facility] Discharge Orders: Discharge Order (Routine); Ordered 04/06/19 Ordered By: Jose De La Cruz Admission Data Admit Date/Time: 03/18/19 10:17 Attending Provider: Jose De La Cruz Admit Provider: Trevor Cardoso Primary Care Provider: Madyson Rodríguez Other Providers: Suhas Oro ; Trevor Cardoso ; John Horner ; Shyam Hull ; Fabian Espinosa ; Magdalena Aguirre ; Oswald Koroma ; Emiliano Lowe Service: Telemetry Medical
[2019-04-06 11:24] LABS: Basophils # (auto) 0.04 K/uL (0-0.2); Basophils % (auto) 0.3 %; Eosinophils # (auto) 0.85 K/uL (0-0.5); Eosinophils % (auto) 5.7 %; Immature Granulocytes # (auto) 0.18 K/uL (0.00-0.02); Immature Granulocytes % (auto) 1.2 %; Lymphocytes # (auto) 1.08 K/uL (1.2-3.4); Lymphocytes % (auto) 7.2 %; Mean Corpuscular Hemoglobin 28.6 pg (25-34); Mean Corpuscular Volume 85.7 fL (80-100); Mean Platelet Volume 8.5 fL (7.4-10.4); Monocytes # (auto) 1.15 K/uL (0.11-0.59); Monocytes % (auto) 7.7 %; Neutrophils # (auto) 11.67 K/uL (1.4-6.5); Neutrophils % (auto) 77.9 %; Platelet Count 371 K/uL (130-400); RDW Coefficient of Variation 17.6 % (11.5-14.5); RDW Standard Deviation 55.2 fL (36.4-46.3); Red Blood Count 3.85 M/uL (4.2-5.4); White Blood Count 14.97 K/uL (4.8-10.8)
[2019-04-06 11:41] LABS: Albumin Level 2.4 gm/dl (3.4-5.0); BUN Creatinine Ratio 32.6 (10-20); Calcium 8.9 mg/dl (8.5-10.1); Creatinine Clr Calc Pharmacy 42.8 ml/min; Est GFR (African American) 70.4; Est GFR (Non-African American) 60.7; Potassium 3.4 mmol/L (3.5-5.1)
[2019-04-06 11:43] LABS: Albumin Globulin Ratio 0.6 (0.9-2); Bilirubin,Total 0.4 mg/dl (0.2-1); Globulin 3.7 gm/dl (2.5-4.0); Total Protein 6.1 gm/dl (6.4-8.2)
[2019-04-06 12:02] LABS: Mean Corpuscular Hgb Conc 33.3 g/dL (32-36)
[2019-04-06] MEDS ORDERED: POTASSIUM CHLORIDE 20 MEQ TABCR PO STA (12:17)
--- NOTE | 2019-04-06 13:29 | Palliative Care Progress Note ---
Date of Service April 06, 2019 Assessment & Plan (1) Goals of care, counseling/discussion: Patient is an 88-year-old female with a past medical history significant for newly diagnosed paroxysmal A. fib, diastolic heart failure, COPD, recent abdominal wall hematoma, CKD stage III, history of TIA/CVA 17, MADELINE, hypothyroid, CAD, hypertension and depression who was hospitalized here at [facility] from February 07 to March 02 for an abdominal wall hematoma that spontaneously ruptured-patient was on a wound VAC for over a month with good healing. After this hospitalization patient spent 2 weeks at [facility] and was recently discharged on 03/15. Patient had done well in rehab. Patient had a choking episode on 03/16 and continue to have worsening shortness of breath over the next couple days. On 03/18 patient was having severe shortness of breath and was brought to the emergency room. In the emergency room chest x-ray showed cardiomegaly with edema, white count was 16.69 with a hemoglobin of 8.8. Patient was admitted and diuresed-her hemoglobin dropped to 7.5 and she was t ransfused. Hemoglobin stable-11.0 on labs drawn this a.m. Patient has required aggressive diuresis-she was able to be weaned down to 1 L of O2-now requiring 2 L via nasal cannula. Patient's BUN 28, creatinine 0.86 on labs drawn this a.m. Patient is now on hospital day 19-patient anxious to return home-patient has home health agency ready when she is discharged, she will continue with speech therapy as an outpatient Patient awake alert and oriented-able to participate in conversation. Patient named her daughterGaby as medical decision-maker on previous visit. Patient's daughter and son-in-law at bedside CODE STATUS-full code, she would not want prolonged intubation or be maintained on life support for an indefinite period of time. Patient's daughter is aware of patient's wishes-has had discussions in the past regarding her living will. -Paroxysmal A. fib-this is a relatively new diagnosis-patient was on amiodarone and metoprolol and had an episode of A. fib while on amiodarone-patient converted on Cardizem -now back on amiodarone and metoprolol. Patient is on Plavix for AC -Diastolic CHF-patient is being aggressively diuresed, patient's renal function tolerated diuresis. Respiratory status improving with aggressive diuresis- patient's BUN 28 this a.m.,baseline BUN appears to be in the low 30s -Acute respiratory failure with hypoxia-underlying COPD as well as diastolic heart failure and possible pneumonia contributing-patient improving, weaning O2 as tolerated -COPD-continue respiratory support, diuresis, now on her Breo inhaler. Patient to be discharged home on p.o. antibiotics, continue on prednisone taper -Abdominal wall abscess-wound VAC in place, wound healing well-wound images reviewed. Patient will continue to follow-up with wound clinic -Depression-has been doing well on current dose of Prozac -Hypothyroid-on Synthroid Will continue to follow and assist patient and family with medical decision making as needed. 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 Patient to be discharged on home O2 Previously discussed with daughter, in private, that given her fragile fluid status and renal function as well as chronic aspiration-discussed when and how to consult hospice when patient and family are ready. (2) PAF (paroxysmal atrial fibrillation): (3) Acute on chronic diastolic CHF (congestive heart failure): (4) Acute respiratory failure with hypoxia: (5) COPD (chronic obstructive pulmonary disease): COPD type: COPD with acute exacerbation Qualified Code(s): J44.1 - Chronic obstructive pulmonary disease with (acute) exacerbation (6) Abscess of abdominal wall: (2) Acute on chronic diastolic CHF (congestive heart failure): Improving with aggressive diuresis-on Lasix twice daily (3) Acute respiratory failure with hypoxia: Improving, did need O2 titrated to 2 L via nasal cannula-on BiPAP nightly, overall appears better (4) COPD (chronic obstructive pulmonary disease): Slowly improving with aggressive pulmonary toilet, titrating O2 as required (5) Abscess of abdominal wall: Healing with wound VAC (6) PAF (paroxysmal atrial fibrillation): Rate well controlled on amiodarone and metoprolol Subjective Patient seen and examined-patient sitting up in chair having lunch. Patient's daughter and son-in-law at bedside. Patient plan for discharge home today-awaiting oxygen for transport. 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 Reviewed med list with daughter-answered all questions Review of Systems Review of Systems: Patient denies fever, chills, chest pain, increased shortness of breath, or abdominal pain Physical Exam Physical Exam: PE: Slightly fatigued, NAD Respirations: Unlabored, on O2 at 2 L CV: Regular rate Abdomen: Not distended Extremities: No edema Neuro: Alert and oriented x4 Results & Data Vital Signs (Past 12 Hours) Vital Signs Temp Pulse Pulse Pulse Pulse Pulse Pulse 04/06/19 12:39 97.3 F L 69 04/06/19 11:47 68 68 77 68 04/06/19 11:00 97.3 F L 69 04/06/19 08:00 63 04/06/19 07:00 97.5 F L 58 L 04/06/19 03:00 97.7 F 55 L Pulse Resp Resp Resp Resp Resp Resp 04/06/19 12:39 20 04/06/19 11:47 70 18 24 24 20 18 04/06/19 11:00 20 04/06/19 08:00 04/06/19 07:00 20 04/06/19 03:00 20 BP BP Pulse Ox Pulse Ox Pulse Ox Pulse Ox Pulse Ox 04/06/19 12:39 107/57 L 165/70 H 90 04/06/19 11:47 90 90 80 L 92 04/06/19 11:00 107/57 L 90 04/06/19 08:00 04/06/19 07:00 165/70 H 97 04/06/19 03:00 184/82 H 96 Pulse Ox 04/06/19 12:39 04/06/19 11:47 87 L 04/06/19 11:00 04/06/19 08:00 04/06/19 07:00 04/06/19 03:00 PG Care Time/CCT Total # of Minutes Spent Total Time Spent with Patient: Total time spent is greater than 50% in coordination of care (as documented) at patient's floor/unit and/or counseling patient: Time Spent Attending Total time spent 35 minutes with greater than 50% of the time spent at bedside reviewing patient's plan for discharge, list of home meds and plan for outpatient care (1) COPD (chronic obstructive pulmonary disease) COPD type: COPD with acute exacerbation Qualified Code(s): J44.1 - Chronic obstructive pulmonary disease with (acute) exacerbation
[2019-04-06] MEDS ORDERED: DOXYCYCLINE HYCLATE 100 MG CAP PO SCH (21:00)
[2019-04-09] MEDS ORDERED: predniSONE 10 MG TABLET PO SCH (09:00)
== END 2019-04-06 14:15 | disposition home health service (06) | DRG 291 ==
LOC: ED 07:59 → SUATTDRO 10:17 → 2S 10:17 → 1E 03-22 00:51 → 2W 03-28 20:16

== ENCOUNTER 2019-08-15 09:43 | Inpatient (IN) ==
[2019-08-15] MEDS ORDERED: SODIUM CHLORIDE 0.9% 1000ML 250 ML IV ONE (09:57)
[2019-08-15 10:28] LABS: Basophils # (auto) 0.04 K/uL (0-0.2); Basophils % (auto) 0.5 %; Eosinophils # (auto) 0.68 K/uL (0-0.5); Eosinophils % (auto) 7.9 %; Hematocrit (blood only) 32.6 % (37-47); Hemoglobin 10.3 g/dL (12.0-16.0); Immature Granulocytes # (auto) 0.03 K/uL (0.00-0.02); Immature Granulocytes % (auto) 0.3 %; Lymphocytes # (auto) 0.92 K/uL (1.2-3.4); Lymphocytes % (auto) 10.7 %; Mean Corpuscular Hgb Conc 31.6 g/dL (32-36); Mean Platelet Volume 9.1 fL (7.4-10.4); Monocytes # (auto) 0.58 K/uL (0.11-0.59); Monocytes % (auto) 6.7 %; Neutrophils # (auto) 6.38 K/uL (1.4-6.5); Neutrophils % (auto) 73.9 %; Platelet Count 244 K/uL (130-400); RDW Coefficient of Variation 16.5 % (11.5-14.5); RDW Standard Deviation 57.3 fL (36.4-46.3); Red Blood Count 3.43 M/uL (4.2-5.4); White Blood Count 8.63 K/uL (4.8-10.8)
--- NOTE | 2019-08-15 10:29 | XRay Report ---
SINGLE VIEW CHEST CLINICAL HISTORY: Generalized weakness. FINDINGS: An AP, portable, upright chest radiograph is compared to study dated 05/14/2019 and correlat ed with chest CT dated 03/29/2019. The examination is degraded by portable technique and patient rotat ion. The heart is enlarged noting atherosclerotic calcification of the thoracic aorta. The pulmonary vasculature is noncongested. Chronic interstitial thickening is similar to previous. There is chronic elevation of the right hemidiaphragm with bibasilar scarring/atelectasis. No airspace consolidation or large pleural effusion is identified. No pneumothorax is seen. The skeletal structures are osteope evelin. The bony thorax is grossly intact. Degenerative change is noted in the shoulders and thoracic sp ine. Superior subluxation of the left humeral head suggests chronic rotator cuff injury. A staghorn c alculus is noted in the right kidney. IMPRESSION: Cardiomegaly with no acute cardiopulmonary abnormality. ACT 112: Negative or not required by law. Electronically signed by: Justin Flores M.D. 08/15/2019 10:27 AM
[2019-08-15 10:49] LABS: Albumin Globulin Ratio 0.6 (0.9-2); Albumin Level 2.8 gm/dl (3.4-5.0); BUN Creatinine Ratio 10.7 (10-20); Bilirubin,Total 0.4 mg/dl (0.2-1); Calcium 12.8 mg/dl (8.5-10.1); Creatinine Clr Calc Pharmacy 10.5 ml/min; Est GFR (African American) 14.1; Est GFR (Non-African American) 12.1; Globulin 4.5 gm/dl (2.5-4.0); Potassium 4.5 mmol/L (3.5-5.1); Total Protein 7.3 gm/dl (6.4-8.2)
[2019-08-15 10:56] LABS: Troponin I < 0.015 ng/ml (0-0.045)
[2019-08-15 10:56] LABS: Appearance Urine Cloudy (Clear); Bacteria Urine Automated 3+ (Negative); Bilirubin Urine Negative (Negative); Blood Urine Trace (Negative); Color Urine Yellow; Epithelial Cell Urine Auto >30 /lpf (0-5); Glucose Urine UA Negative (Negative); Ketones Urine Negative (Negative); Leukocyte Esterase Urine 3+ (Negative); Nitrite Urine Negative (Negative); RBC Urine Automated 0-4 /hpf (0-4); Urobilinogen Urine Negative (Negative); WBC Urine Automated >30 /hpf (0-5); pH Urine 8.5 (4.5-7.5)
[2019-08-15 11:05] LABS: Protein Urine Negative (Negative); Sulfosalicylic Acid Urine Negative (Negative)
[2019-08-15 11:09] LABS: T4 Free Thyroxine 1.12 ng/dl (0.8-1.6)
--- NOTE | 2019-08-15 12:33 | History & Physical Report ---
Date of Service August 15, 2019 Assessment & Plan (1) Hypercalcemia: Patient with moderate hypercalcemia. Calcium = 12.8. Complaints of confusion, lethargy and dehydration are most likely secondary to elevated calcium. No EKG changes. Patient is awake alert and oriented x3, answering que stions appropriately and following commands. Most likely multifactorial. Patient has had poor oral intake over the last month, acutely worsening over the last few days. Additionally, she is on calcium supplementation. Has had normal calcium levels in the past with exception of mild elevation on labs from 08/09/2019 (calcium was 10.8 at that time). Must also consider hyperparathyroidism and malignancy as underlying cause of hypercalcemia. Specifically renal cell carcinoma as patient with known renal mass, thick-walled cystic of the inferior pole of the left kidney with areas of mural nodularity and peripheral enhancement. Magnesium, alkaline phosphatase levels within normal range. Admit to medical floor telemetry monitoring Check ionized calcium, intact parathyroid hormone level, lipase and phosphorus Check BMP every 6 hours Patient receiving IV fluid in the ER. We will continue with normal saline at 125 mL/h x 2 L We will continue p.o. Lasix at home dose of 40 mg daily. Depending on how calcium level responds to fluid will consider IV Lasix rather than p.o. MRI kidney to further assess mass. Patient has a wound VAC in place which limits obtaining this study at this time We will ultrasound kidney as below Present on Admission?: Yes (2) ROXANNA (acute kidney injury): Elevated BUN = 35, creatinine = 3.26 which is acutely increased from 18 and 1.34, respectively. Patient had normal creatinine levels prior to this however always seems to have an elevated BUN. Most likely multifactorial, hypercalcemia and poor p.o. intake. Patient is making urine. Electrolytes favorable at this time, K = 4.5, serum bicarb = 32. UA is a poor specimen with greater than 30 epithelial cells, also with trace blood, 3+ leuk esterase, greater than 30 WBCs and 3+ bacteria. Patient denies urinary complaints. -Check urine sodium and urine urea to calculate FeNa Check total CK Check renal ultrasound Monitor strict intake and output Aggressive IV fluids as above BMP every 6 hours to monitor renal function and calcium level Avoid nephrotoxic agents Renal dosing were needed We will place patient on renal diet for now -Consider nephrology consultation pending response to fluids Present on Admission?: Yes (3) PAF (paroxysmal atrial fibrillation): Patient presently in sinus bradycardia. Continue amiodarone 200 mg p.o. every morning. Will administer dose today as patient has not yet had her morning medications No anticoagulation Continuous cardiac monitoring on medical floor Present on Admission?: Yes (4) CAD (coronary artery disease): Stable. No EKG evidence of ischemia. Troponin negative. Patient follows with Dr. Horner Continue metoprolol 25 mg p.o. daily. Will need to hold if patient continues to be bradycardic Continue atorvastatin 20 mg p.o. daily Continue Plavix 75 mg p.o. daily Present on Admission?: Yes (5) Hyperlipidemia: Chronic. Stable. Continue atorvastatin 20 mg p.o. daily Present on Admission?: Yes (6) Hypothyroidism: Patient with markedly elevated TSH = 23. 2. Normal T4 Continue Synthroid 37.5 mcg p.o. daily Repeat labs outpatient Present on Admission?: Yes (7) Obstructive sleep apnea, adult: Chronic. Stable. CPAP nightly Present on Admission?: Yes (8) Chronic cerebral ischemia: Chronic. Stable. Patient had a stroke in 2001 and has residual left- sided weakness of the upper and lower extremity Continue Plavix 75 mg p.o. daily Continue atorvastatin 20 mg p.o. daily Present on Admission?: Yes (9) Anemia: Normochromic, normocytic anemia with Hgb = 10.3, HCT = 32.6. No active bleeding suspected. These values are improved from prior (9.7 and 32.1, respectively on 08/09/2019). Daughter reports the patient no longer takes oral iron supplement. She required multiple blood transfusions during her last hospital stay. Daughter reports 9 units were administered. Anemia thought to be secondary to surgical losses and possibly some degree of bone marrow suppression. Daughter reports that when patient received Zosyn her H&H drops precipitously then recovers after this medication is withdrawn. Continue to monitor CBC -Transfuse for active bleed, symptomatic anemia or hemoglobin less than 7 Present on Admission?: Yes (10) Abscess of abdominal wall: Patient with surgical complications following hernia repair. She had exploratory laparotomy with lysis of adhesions, resection of portion of transverse colon with overlying hernia mesh performed at [facility] on 07/17/2019. Subsequent development of seroma with drains placed. Presently with wound VAC in place. Doing well. Not on any antibiotics. Wound care consultation for wound VAC management Wound VAC is to be changed tomorrow Present on Admission?: Yes (11) CHF (congestive heart failure): Chronic. Stable. Patient appears to be quite dry on exam today, no evidence of failure Continue metoprolol, continue p.o. Lasix Closely monitor volume status with aggressive hydration Present on Admission?: Yes (12) Asthma: Chronic. Stable. No shortness of breath, cough, wheeze. Patient follows with Dr. Dean Patient may continue home Breo -Albuterol as needed Present on Admission?: Yes (13) Candidal intertrigo: Patient with red rash in groin folds, has been using nystatin Continue nystatin F/E/Nnormal saline at 125 mL/h x 2 L, monitor BMP every 4 hours, renal diet as tolerated ProphylaxisHeparin for DVT prophylaxis Codefull per discussion with patient Dispositionadmit to medical floor with telemetry History of Present Illness Chief Complaint: weakness, confusion Primary Care Provider: Madyson Rodríguez MD Dorie Parra is an 88 yo female with multiple medical problems presenting with confusion and lethargy. Majority of history obtained from daughter, Gaby. She reports that the patient was slightly confused yesterday. Her daughter visited in the afternoon and patient was very sleepy and seemed that she was dehydrated. Her daughter gave her something to eat and tried to make her drink and feels that her mental status improved after approximately 1 hour. Patient was again confused and sleepy this morning as well as diffusely weak. She was unable to get off the commode and required assistance. She was also complaining of some mild nausea. Patient found to be hypercalcemic in the ER with calcium = 12.8. Also with ROXANNA, BUN = 35 and creatinine = 3.26. Recent hospitalization at [facility] for management of abdominal wound. She was discharged to home on 08/03. Overall she has been doing quite well since her return home. She had a follow-up appoint with her PCP on 08/09/2019. ER course: Normal saline x1 L Allergies Allergy/AdvReac Type Severity Reaction Status Date / Time oxycodone Allergy Mild RASH Verified 08/15/19 10:29 alendronate sodium Allergy Unknown [facility] LIST Verified 08/15/19 10:29 Bactrim Allergy Unknown [facility] LIST Verified 02/07/18 04:16 cefuroxime Allergy Unknown UNKNOWN ON Verified 08/15/19 10:29 LIST Cipro Allergy Unknown Unknown Verified 02/07/18 21:42 ciprofloxacin Allergy Unknown UNKNOWN ON Verified 08/15/19 10:29 LIST codeine Allergy Unknown UNKNOWN ON Verified 08/15/19 10:29 LIST gabapentin Allergy Unknown UNKNOWN ON Verified 08/15/19 10:29 LIST meperidine Allergy Unknown UNKNOWN ON Verified 08/15/19 10:29 LIST piperacillin [From Zosyn] Allergy Unknown Unknown Unverified 08/15/19 10:29 propoxyphene Allergy Unknown UNKNOWN ON Verified 08/15/19 10:29 LIST Sulfa (Sulfonamide Allergy Unknown UNKNOWN ON Verified 08/15/19 10:29 Antibiotics) LIST sulfamethoxazole Allergy Unknown [facility] LIST Verified 08/15/19 10:29 tazobactam [From Zosyn] Allergy Unknown Unknown Unverified 08/15/19 10:29 trimethoprim Allergy Unknown [facility] LIST Verified 08/15/19 10:29 amphetamine AdvReac Severe UNKNOWN ON Verified 08/15/19 10:29 LIST dextroamphetamine AdvReac Severe UNKNOWN ON Verified 08/15/19 10:29 LIST hydrochlorothiazide AdvReac Intermediate GI DISTRESS Verified 08/15/19 10:29 methyldopa AdvReac Intermediate GI DISTRESS Verified 08/15/19 10:29 fluoxetine [From Prozac] AdvReac Unknown Hallucinati Unverified 08/15/19 10:29 ng Home Medications Home Medications Medication Instructions Recorded Confirmed Type albuterol sulfate [Ventolin HFA] 1 - 2 puff INHALATION QID PRN 12/26/18 08/15/19 History cholecalciferol (vitamin D3) 2,000 unit PO QAM 12/26/18 08/15/19 History [Vitamin D3] multivitamin 1 tab PO QAM 12/26/18 08/15/19 History magnesium oxide 400 mg PO BID #60 tab 03/02/19 08/15/19 Rx acetaminophen 500 mg capsule 500 mg PO Q4H PRN MDD 6 tablets in 03/05/19 08/15/19 History 24 hours docusate sodium 100 mg capsule 100 mg PO BID PRN 03/05/19 08/15/19 History clopidogrel [Plavix] 75 mg PO QAM 03/18/19 08/15/19 History amiodarone 200 mg tablet 200 mg PO QAM #90 tab 04/17/19 08/15/19 Rx ferrous sulfate 325 mg (65 mg 325 mg PO BID #60 tab 04/20/19 08/15/19 Rx iron) tablet,delayed release atorvastatin 20 mg PO QPM 04/29/19 08/15/19 History furosemide 40 mg PO QAM 04/29/19 08/15/19 History nystatin 100,000 unit/gram topical 1 applic TOPICAL DAILY PRN gm 06/05/19 08/15/19 History powder levothyroxine 75 mcg tablet 37.5 mcg PO DAILY #45 tab 06/11/19 08/15/19 Rx diclofenac sodium 1 % topical gel 2 gm TOPICAL BID gm 08/03/19 08/15/19 History lactobacillus combination no.8 3 3,000 mmu cells PO DAILY 08/09/19 08/15/19 History billion cell capsule amlodipine 10 mg PO DAILY 08/15/19 08/15/19 History calcium carbonate [Calcium 600] 600 mg PO DAILY 08/15/19 08/15/19 History metoprolol succinate 25 mg PO DAILY 08/15/19 08/15/19 History potassium chloride 10 meq PO BID 08/15/19 08/15/19 History Past Med/Surg History Medical History (Updated 08/15/19 @ 18:24 by Maria T Collins DO) A-fib (Chronic) Abscess of abdominal wall (Chronic) Asthma (Chronic) CAD (coronary artery disease) (Chronic) Chronic asthmatic bronchitis (Chronic) Chronic cerebral ischemia (Resolved) Chronic kidney disease, stage 3a (Chronic) Depression (Resolved) HTN (hypertension) (Chronic) Hyperlipidemia (Chronic) Hypothyroidism (Chronic) Metabolic encephalopathy (Resolved) Obstructive sleep apnea, adult (Chronic) Transient ischemic attack (Resolved) Tremor (Chronic) Vertigo (Resolved) Surgical History S/P cholecystectomy (Resolved) S/P hernia repair (Resolved) S/P hysterectomy (Resolved) Family History Mother , age 86 of an DC. She also had COPD. Myocardial infarction COPD (chronic obstructive pulmonary disease) Father , age 47 of an DC. Myocardial infarction Social History Preferred Language: And[place] Communication Ability: Effective Visual Impairment: Limited Hearing Ability: Normal Vice President Of Operations Required: No Beliefs That Will Affect Care: Yazdanism Yazdanism Beliefs: Adventism. 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 Other Information That Helps Us Care for You: No other: 4 children, 1 is already Feels Safe at Home: Declines to Answer Smoking Status: Never smoker Second Hand Exposure: Yes (Grew up in a family that smoked.) ; Hx Alcohol Use: No Hx Substance Use: Yes substance use type: prescription drug Last Used Substance: Unknown Last Used Substance Other:: Tramadol in hospital with last admission at [facility]. Uses Tylenol. Childhood Exposure to Second-Hand Smoke: No Review of Systems Review of Systems: All systems reviewed & are unremarkable except as noted in HPI & below Decreased oral intake over the last month, worse in the last few days Confusion Muscle twitching Physical Exam Physical Exam: General: patient resting comfortably, NAD, non-toxic in appearance, AA&O x 4 Skin: warm, dry, intact, +intertriginous yeast infection in groin HEENT: NC/AT, PERRL, EOMI, anicteric sclera, conjunctiva without injection, external ear normal to inspection and nontender, nares patent, dry mucus membranes, dentition intact, no oropharyngeal lesions, neck supple, trachea midline, no LAD, no thyromegaly, no JVD Heart: +S1/S2, regular, bradycardic, no m/r/g Lungs: equal air entry bilaterally, no rales/rhonchi/wheezes Abd: +BS, soft, NT/ND, no masses/organomegaly/ascites Ext: warm, 2+ pulses in UE/LE bilaterally, no clubbing/cyanosis or edema Neuro: nonfocal, patient AA&O x 4, speech intact, no facial droop, moving all extremities on command with equal strength 5/5 Results & Data Vital Signs (Past 12 Hours) Vital Signs Temp Pulse Pulse Resp BP BP Pulse Ox 08/15/19 11:30 55 L 16 195/86 H 96 08/15/19 10:10 57 L 16 98 08/15/19 09:55 36.4 C L 58 L 17 175/85 H 96 Laboratory Results Lab Results 08/15/19 08/15/19 08/15/19 Range/Units 10:10 10:10 10:10 WBC 8.63 (4.8-10.8) K/uL RBC 3.43 L (4.2-5.4) M/uL Hgb 10.3 L (12.0-16.0) g/dL Hct 32.6 L (37-47) % MCV 95.0 (80-100) fL MCH 30.0 (25-34) pg MCHC 31.6 L (32-36) g/dL RDW Std Deviation 57.3 H (36.4-46.3) fL RDW Coeff of Elliot 16.5 H (11.5-14.5) % Plt Count 244 (130-400) K/uL MPV 9.1 (7.4-10.4) fL Immature Gran % (Auto) 0.3 % Neut % (Auto) 73.9 % Lymph % (Auto) 10.7 % [place] % (Auto) 6.7 % Eos % (Auto) 7.9 % Baso % (Auto) 0.5 % Immature Gran # (Auto) 0.03 H (0.00-0.02) K/uL Neut # (Auto) 6.38 (1.4-6.5) K/uL Lymph # (Auto) 0.92 L (1.2-3.4) K/uL [place] # (Auto) 0.58 (0.11-0.59) K/uL Eos # (Auto) 0.68 H (0-0.5) K/uL Baso # (Auto) 0.04 (0-0.2) K/uL Sodium 137 (136-145) mmol/L Potassium 4.5 (3.5-5.1) mmol/L Chloride 103 (98-107) mmol/L Carbon Dioxide 32 (21-32) mmol/L Anion Gap 2.0 L (3-11) BUN 35 H (7-18) mg/dl Creatinine 3.26 H (0.6-1.2) mg/dl Est Cr Clr Drug Dosing 10.5 ml/min Est GFR ( Amer) 14.1 Est GFR (Non-Af Amer) 12.1 BUN/Creatinine Ratio 10.7 (10-20) Glucose 100 H (70-99) mg/dl Calcium 12.8 H* (8.5-10.1) mg/dl Ionized Calcium Phosphorus (2.5-4.9) mg/dl Magnesium (1.8-2.4) mg/dl Total Bilirubin 0.4 (0.2-1) mg/dl AST 17 (15-37) U/L ALT 18 (12-78) U/L Alkaline Phosphatase 87 (45-117) U/L Total Creatine Kinase (26-192) U/L Troponin I < 0.015 (0-0.045) ng/ml Total Protein 7.3 (6.4-8.2) gm/dl Albumin 2.8 L (3.4-5.0) gm/dl Globulin 4.5 H (2.5-4.0) gm/dl Albumin/Globulin Ratio 0.6 L (0.9-2) Lipase (73-393) U/L TSH 23.200 H (0.300-4.500) uIu/ml Free T4 1.12 (0.8-1.6) ng/dl PTH Intact (18.4-80.1) pg/ml Urine Color Urine Appearance (Clear) Urine pH (4.5-7.5) Ur Specific [place] (1.000-1.030) Urine Protein (Negative) Urine Glucose (UA) (Negative) Urine Ketones (Negative) Urine Blood (Negative) Urine Nitrite (Negative) Urine Bilirubin (Negative) Urine Urobilinogen (Negative) Ur Leukocyte Esterase (Negative) Urine WBC (Auto) (0-5) /hpf Urine RBC (Auto) (0-4) /hpf U Hyaline Cast (Auto) (0-5) /lpf U Epithel Cells (Auto) (0-5) /lpf Urine Bacteria (Auto) (Negative) 08/15/19 08/15/19 08/15/19 Range/Units 10:10 10:37 14:06 WBC (4.8-10.8) K/uL RBC (4.2-5.4) M/uL Hgb (12.0-16.0) g/dL Hct (37-47) % MCV (80-100) fL MCH (25-34) pg MCHC (32-36) g/dL RDW Std Deviation (36.4-46.3) fL RDW Coeff of Elliot (11.5-14.5) % Plt Count (130-400) K/uL MPV (7.4-10.4) fL Immature Gran % (Auto) % Neut % (Auto) % Lymph % (Auto) % [place]son % (Auto) % Eos % (Auto) % Baso % (Auto) % Immature Gran # (Auto) (0.00-0.02) K/uL Neut # (Auto) (1.4-6.5) K/uL Lymph # (Auto) (1.2-3.4) K/uL [place] # (Auto) (0.11-0.59) K/uL Eos # (Auto) (0-0.5) K/uL Baso # (Auto) (0-0.2) K/uL Sodium 137 (136-145) mmol/L Potassium 4.2 (3.5-5.1) mmol/L Chloride 105 (98-107) mmol/L Carbon Dioxide 25 (21-32) mmol/L Anion Gap 7.0 (3-11) BUN 34 H (7-18) mg/dl Creatinine 3.15 H (0.6-1.2) mg/dl Est Cr Clr Drug Dosing 10.0 ml/min Est GFR ( Amer) 14.7 Est GFR (Non-Af Amer) 12.6 BUN/Creatinine Ratio 10.8 (10-20) Glucose 88 (70-99) mg/dl Calcium 12.2 H* (8.5-10.1) mg/dl Ionized Calcium Phosphorus 4.3 (2.5-4.9) mg/dl Magnesium 3.2 H (1.8-2.4) mg/dl Total Bilirubin (0.2-1) mg/dl AST (15-37) U/L ALT (12-78) U/L Alkaline Phosphatase (45-117) U/L Total Creatine Kinase 24 L (26-192) U/L Troponin I (0-0.045) ng/ml Total Protein (6.4-8.2) gm/dl Albumin (3.4-5.0) gm/dl Globulin (2.5-4.0) gm/dl Albumin/Globulin Ratio (0.9-2) Lipase 173 (73-393) U/L TSH (0.300-4.500) uIu/ml Free T4 (0.8-1.6) ng/dl PTH Intact (18.4-80.1) pg/ml Urine Color Yellow Urine Appearance Cloudy A (Clear) Urine pH 8.5 H (4.5-7.5) Ur Specific [place] 1.010 (1.000-1.030) Urine Protein Negative (Negative) Urine Glucose (UA) Negative (Negative) Urine Ketones Negative (Negative) Urine Blood Trace H (Negative) Urine Nitrite Negative (Negative) Urine Bilirubin Negative (Negative) Urine Urobilinogen Negative (Negative) Ur Leukocyte Esterase 3+ H (Negative) Urine WBC (Auto) >30 H (0-5) /hpf Urine RBC (Auto) 0-4 (0-4) /hpf U Hyaline Cast (Auto) 5-10 H (0-5) /lpf U Epithel Cells (Auto) >30 H (0-5) /lpf Urine Bacteria (Auto) 3+ H (Negative) 08/15/19 08/15/19 08/15/19 Range/Units 14:06 14:06 14:06 WBC (4.8-10.8) K/uL RBC (4.2-5.4) M/uL Hgb (12.0-16.0) g/dL Hct (37-47) % MCV (80-100) fL MCH (25-34) pg MCHC (32-36) g/dL RDW Std Deviation (36.4-46.3) fL RDW Coeff of Elliot (11.5-14.5) % Plt Count (130-400) K/uL MPV (7.4-10.4) fL Immature Gran % (Auto) % Neut % (Auto) % Lymph % (Auto) % [place] % (Auto) % Eos % (Auto) % Baso % (Auto) % Immature Gran # (Auto) (0.00-0.02) K/uL Neut # (Auto) (1.4-6.5) K/uL Lymph # (Auto) (1.2-3.4) K/uL [place] # (Auto) (0.11-0.59) K/uL Eos # (Auto) (0-0.5) K/uL Baso # (Auto) (0-0.2) K/uL Sodium (136-145) mmol/L Potassium (3.5-5.1) mmol/L Chloride (98-107) mmol/L Carbon Dioxide (21-32) mmol/L Anion Gap (3-11) BUN (7-18) mg/dl Creatinine (0.6-1.2) mg/dl Est Cr Clr Drug Dosing ml/min Est GFR ( Amer) Est GFR (Non-Af Amer) BUN/Creatinine Ratio (10-20) Glucose (70-99) mg/dl Calcium (8.5-10.1) mg/dl Ionized Calcium Cancelled Phosphorus Cancelled (2.5-4.9) mg/dl Magnesium (1.8-2.4) mg/dl Total Bilirubin (0.2-1) mg/dl AST (15-37) U/L ALT (12-78) U/L Alkaline Phosphatase (45-117) U/L Total Creatine Kinase Cancelled (26-192) U/L Troponin I (0-0.045) ng/ml Total Protein (6.4-8.2) gm/dl Albumin (3.4-5.0) gm/dl Globulin (2.5-4.0) gm/dl Albumin/Globulin Ratio (0.9-2) Lipase Cancelled (73-393) U/L TSH (0.300-4.500) uIu/ml Free T4 (0.8-1.6) ng/dl PTH Intact 19.0 (18.4-80.1) pg/ml Urine Color Urine Appearance (Clear) Urine pH (4.5-7.5) Ur Specific [place] (1.000-1.030) Urine Protein (Negative) Urine Glucose (UA) (Negative) Urine Ketones (Negative) Urine Blood (Negative) Urine Nitrite (Negative) Urine Bilirubin (Negative) Urine Urobilinogen (Negative) Ur Leukocyte Esterase (Negative) Urine WBC (Auto) (0-5) /hpf Urine RBC (Auto) (0-4) /hpf U Hyaline Cast (Auto) (0-5) /lpf U Epithel Cells (Auto) (0-5) /lpf Urine Bacteria (Auto) (Negative) 08/15/19 Range/Units 14:45 WBC (4.8-10.8) K/uL RBC (4.2-5.4) M/uL Hgb (12.0-16.0) g/dL Hct (37-47) % MCV (80-100) fL MCH (25-34) pg MCHC (32-36) g/dL RDW Std Deviation (36.4-46.3) fL RDW Coeff of Elliot (11.5-14.5) % Plt Count (130-400) K/uL MPV (7.4-10.4) fL Immature Gran % (Auto) % Neut % (Auto) % Lymph % (Auto) % [place] % (Auto) % Eos % (Auto) % Baso % (Auto) % Immature Gran # (Auto) (0.00-0.02) K/uL Neut # (Auto) (1.4-6.5) K/uL Lymph # (Auto) (1.2-3.4) K/uL [place] # (Auto) (0.11-0.59) K/uL Eos # (Auto) (0-0.5) K/uL Baso # (Auto) (0-0.2) K/uL Sodium (136-145) mmol/L Potassium (3.5-5.1) mmol/L Chloride (98-107) mmol/L Carbon Dioxide (21-32) mmol/L Anion Gap (3-11) BUN (7-18) mg/dl Creatinine (0.6-1.2) mg/dl Est Cr Clr Drug Dosing ml/min Est GFR ( Amer) Est GFR (Non-Af Amer) BUN/Creatinine Ratio (10-20) Glucose (70-99) mg/dl Calcium (8.5-10.1) mg/dl Ionized Calcium 1.55 H Phosphorus (2.5-4.9) mg/dl Magnesium (1.8-2.4) mg/dl Total Bilirubin (0.2-1) mg/dl AST (15-37) U/L ALT (12-78) U/L Alkaline Phosphatase (45-117) U/L Total Creatine Kinase (26-192) U/L Troponin I (0-0.045) ng/ml Total Protein (6.4-8.2) gm/dl Albumin (3.4-5.0) gm/dl Globulin (2.5-4.0) gm/dl Albumin/Globulin Ratio (0.9-2) Lipase (73-393) U/L TSH (0.300-4.500) uIu/ml Free T4 (0.8-1.6) ng/dl PTH Intact (18.4-80.1) pg/ml Urine Color Urine Appearance (Clear) Urine pH (4.5-7.5) Ur Specific [place] (1.000-1.030) Urine Protein (Negative) Urine Glucose (UA) (Negative) Urine Ketones (Negative) Urine Blood (Negative) Urine Nitrite (Negative) Urine Bilirubin (Negative) Urine Urobilinogen (Negative) Ur Leukocyte Esterase (Negative) Urine WBC (Auto) (0-5) /hpf Urine RBC (Auto) (0-4) /hpf U Hyaline Cast (Auto) (0-5) /lpf U Epithel Cells (Auto) (0-5) /lpf Urine Bacteria (Auto) (Negative) Diagnostic Findings SINGLE VIEW CHEST CLINICAL HISTORY: Generalized weakness. FINDINGS: An AP, portable, upright chest radiograph is compared to study dated 05/14/2019 and correlated with chest CT dated 03/29/2019. The examination is degraded by portable technique and patient rotation. The heart is enlarged noting atherosclerotic calcification of the thoracic aorta. The pulmonary vasculature is noncongested. Chronic interstitial thickening is similar to previous. There is chronic elevation of the right hemidiaphragm with bibasilar scarring/atelectasis. No airspace consolidation or large pleural effusion is identified. No pneumothorax is seen. The skeletal structures are osteopenic. The bony thorax is grossly intact. Degenerative change is noted in the shoulders and thoracic spine. Superior subluxation of the left humeral head suggests chronic rotator cuff injury. A staghorn calculus is noted in the right kidney. IMPRESSION: Cardiomegaly with no acute cardiopulmonary abnormality. ACT 112: Negative or not required by law. Electronically signed by: Justin Flores M.D. 08/15/2019 10:27 AM Dictated: 08/15/19 1025 Transcribed: 08/15/19 1025 ECG Additional Comments: The study shows sinus bradycardia 57 bpm, normal axis, ND = 192, QRS = 94, QTc = 424 no acute ischemic changes Code Status & VTE Plan Code Status Full VTE Prophylaxis Plan VTE Prophylaxis will be ordered: Yes PG Care Time/CCT Total # of Minutes Spent Total Time Spent with Patient: Total time spent is greater than 50% in coordination of care (as documented) at patient's floor/unit and/or counseling patient: (1) CAD (coronary artery disease) Associated angina: without angina Coronary Disease-Associated Artery/Lesion type: [place] artery [place] vs. transplanted heart: [place] heart Qualified Code(s): I25.10 - Atherosclerotic heart disease of [place] coronary artery without angina pectoris (2) CHF (congestive heart failure) Heart failure chronicity: acute Heart failure type: unspecified Qualified Code(s): I50.9 - Heart failure, unspecified (3) Anemia Anemia type: unspecified type Qualified Code(s): D64.9 - Anemia, unspecified (4) Hyperlipidemia Hyperlipidemia type: mixed hyperlipidemia Qualified Code(s): E78.2 - Mixed hyperlipidemia (5) Hypothyroidism Hypothyroidism type: acquired Qualified Code(s): E03.9 - Hypothyroidism, unspecified (6) Asthma Asthma complication type: uncomplicated Asthma persistence: unspecified Asthma severity: unspecified severity Qualified Code(s): J45.909 - Unspecified asthma, uncomplicated
[2019-08-15] MEDS ORDERED: DOCUSATE SODIUM 100 MG CAP PO PRN (13:16)
[2019-08-15] MEDS ORDERED: NYSTATIN POWDER 15GM BTL EXT PRN (13:16)
[2019-08-15] MEDS ORDERED: ACETAMINOPHEN 500 MG TAB PO PRN (13:16)
[2019-08-15] MEDS ORDERED: LEVOTHYROXINE SODIUM 75 MCG TABLET PO SCH (13:30)
[2019-08-15] MEDS ORDERED: SODIUM CHLORIDE 0.9% 1000ML 1,000 ML IV SCH (13:30)
[2019-08-15 14:46] LABS: BUN Creatinine Ratio 10.8 (10-20); Calcium 12.2 mg/dl (8.5-10.1); Est GFR (African American) 14.7; Est GFR (Non-African American) 12.6; Potassium 4.2 mmol/L (3.5-5.1)
[2019-08-15 14:47] LABS: Phosphorus 4.3 mg/dl (2.5-4.9)
[2019-08-15] MEDS: FUROSEMIDE 40 MG TAB PO SCH (14:53)
[2019-08-15] MEDS: HEPARIN SOD 5,000 UNIT/0.5 ML VIAL SQ SCH ×2 (14:53→21:11)
[2019-08-15] MEDS: LACTOBACILLUS ACIDOPHILUS (FLORANEX) TAB PO SCH (14:54)
[2019-08-15] MEDS: CLOPIDOGREL BISULFATE 75 MG TAB PO SCH (14:54)
[2019-08-15] MEDS: FLUTICASONE/VILANTEROL INHALER INH SCH (15:07)
--- NOTE | 2019-08-15 15:37 | Emergency Department Note ---
Entered by Eden Suh acting as a scribe for History of Present Illness General Chief complaint: Dehydration Time Seen by Provider: 08/15/19 09:44 Source: patient and EMS Limitations: no limitations History of Present Illness Onset (ago): day(s) 1 Location: head Pain Consistency: + other (persistent) Quality: + other (confusion) Associated symptoms: + denies other symptoms (abdominal pain); no chest pain and no headaches The patient is an 88 year old female who presents to the Emergency Room with c omplaints of intermittent confusion that began last night. Per EMS, the patient's family called emergency services, because they thought she was confused and dehydrated. EMS notes that the patient's family gave her fluids and food, but it provided no relief. The family, at bedside, reports that they called the patient last night, and she seemed confused. The family states that she was repetitive, and she was not answering questions. Her daughter went over to her house and took care of her and she seemed better. This morning the patient could not get up off of the toilet and so they called EMS. The patient complains of feeling lethargic. She denies any pain, including and headache, chest pain, and abdominal pain. The patient denies any urinary symptoms. She notes that she's had a recent bowel surgery. The family reports that the patient has not taken her medications for this morning. They also states that she has not been eating or drinking very much for the past week. She lives with her . Home Medications Home Medications Medication Instructions Recorded Confirmed Type albuterol sulfate [Ventolin HFA] 1 - 2 puff INHALATION QID PRN 12/26/18 08/15/19 History cholecalciferol (vitamin D3) 2,000 unit PO QAM 12/26/18 08/15/19 History [Vitamin D3] multivitamin 1 tab PO QAM 12/26/18 08/15/19 History magnesium oxide 400 mg PO BID #60 tab 03/02/19 08/15/19 Rx acetaminophen 500 mg capsule 500 mg PO Q4H PRN MDD 6 tablets in 03/05/19 08/15/19 History 24 hours docusate sodium 100 mg capsule 100 mg PO BID PRN 03/05/19 08/15/19 History clopidogrel [Plavix] 75 mg PO QAM 03/18/19 08/15/19 History amiodarone 200 mg tablet 200 mg PO QAM #90 tab 04/17/19 08/15/19 Rx ferrous sulfate 325 mg (65 mg 325 mg PO BID #60 tab 04/20/19 08/15/19 Rx iron) tablet,delayed release atorvastatin 20 mg PO QPM 04/29/19 08/15/19 History furosemide 40 mg PO QAM 04/29/19 08/15/19 History nystatin 100,000 unit/gram topical 1 applic TOPICAL DAILY PRN gm 06/05/19 08/15/19 History powder levothyroxine 75 mcg tablet 37.5 mcg PO DAILY #45 tab 06/11/19 08/15/19 Rx diclofenac sodium 1 % topical gel 2 gm TOPICAL BID gm 08/03/19 08/15/19 History lactobacillus combination no.8 3 3,000 mmu cells PO DAILY 08/09/19 08/15/19 History billion cell capsule amlodipine 10 mg PO DAILY 08/15/19 08/15/19 History calcium carbonate [Calcium 600] 600 mg PO DAILY 08/15/19 08/15/19 History metoprolol succinate 25 mg PO DAILY 08/15/19 08/15/19 History potassium chloride 10 meq PO BID 08/15/19 08/15/19 History Allergies Allergy/AdvReac Type Severity Reaction Status Date / Time oxycodone Allergy Mild RASH Verified 08/15/19 10:29 alendronate sodium Allergy Unknown [facility] LIST Verified 08/15/19 10:29 Bactrim Allergy Unknown [facility] LIST Verified 02/07/18 04:16 cefuroxime Allergy Unknown UNKNOWN ON Verified 08/15/19 10:29 LIST Cipro Allergy Unknown Unknown Verified 02/07/18 21:42 ciprofloxacin Allergy Unknown UNKNOWN ON Verified 08/15/19 10:29 LIST codeine Allergy Unknown UNKNOWN ON Verified 08/15/19 10:29 LIST gabapentin Allergy Unknown UNKNOWN ON Verified 08/15/19 10:29 LIST meperidine Allergy Unknown UNKNOWN ON Verified 08/15/19 10:29 LIST piperacillin [From Zosyn] Allergy Unknown Unknown Unverified 08/15/19 10:29 propoxyphene Allergy Unknown UNKNOWN ON Verified 08/15/19 10:29 LIST Sulfa (Sulfonamide Allergy Unknown UNKNOWN ON Verified 08/15/19 10:29 Antibiotics) LIST sulfamethoxazole Allergy Unknown [facility] LIST Verified 08/15/19 10:29 tazobactam [From Zosyn] Allergy Unknown Unknown Unverified 08/15/19 10:29 trimethoprim Allergy Unknown [facility] LIST Verified 08/15/19 10:29 amphetamine AdvReac Severe UNKNOWN ON Verified 08/15/19 10:29 LIST dextroamphetamine AdvReac Severe UNKNOWN ON Verified 08/15/19 10:29 LIST hydrochlorothiazide AdvReac Intermediate GI DISTRESS Verified 08/15/19 10:29 methyldopa AdvReac Intermediate GI DISTRESS Verified 08/15/19 10:29 fluoxetine [From Prozac] AdvReac Unknown Hallucinati Unverified 08/15/19 10:29 ng Past Med/Surg History Medical History A-fib (Chronic) Abscess of abdominal wall (Chronic) Asthma (Chronic) CAD (coronary artery disease) (Chronic) Chronic asthmatic bronchitis (Chronic) Chronic cerebral ischemia (Resolved) Chronic kidney disease, stage 3a (Chronic) Depression (Resolved) HTN (hypertension) (Chronic) Hyperlipidemia (Chronic) Hypothyroidism (Chronic) Metabolic encephalopathy (Resolved) Obstructive sleep apnea, adult (Chronic) Transient ischemic attack (Resolved) Tremor (Chronic) Vertigo (Resolved) Surgical History S/P cholecystectomy (Resolved) S/P hernia repair (Resolved) S/P hysterectomy (Resolved) Family History Mother , age 86 of an NH. She also had COPD. Myocardial infarction COPD (chronic obstructive pulmonary disease) Father , age 47 of an NH. Myocardial infarction Social History Preferred Language: Mongolian Communication Ability: Effective Visual Impairment: Limited Hearing Ability: Normal Commissioner Of Conciliation Required: No Beliefs That Will Affect Care: Yazidism Yazidism Beliefs: Anabaptist. 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 Other Information That Helps Us Care for You: No other: 4 children, 1 is already Feels Safe at Home: Declines to Answer Smoking Status: Never smoker Second Hand Exposure: Yes (Grew up in a family that smoked.) ; Hx Alcohol Use: No Hx Substance Use: Yes substance use type: prescription drug Last Used Substance: Unknown Last Used Substance Other:: Tramadol in hospital with last admission at [facility]. Uses Tylenol. Childhood Exposure to Second-Hand Smoke: No Review of Systems See HPI for pertinent positives & negatives. and A total of 10 systems reviewed and were otherwise negative Physical Exam Vital Signs Vital Signs - 24 hr 08/15/19 09:55 08/15/19 10:10 08/15/19 11:30 Temperature 36.4 C L Temperature Source Oral Pulse Rate 58 L 57 L Pulse Rate [Apical] 55 L Pulse Rhythm Regular Regular Pulse Rhythm [Apical] Regular Pulse Strength Normal Respiratory Rate 17 16 16 Respiratory Effort / Characteristics Non-Labored Spontaneous Non-Labored Spontaneous Respiratory Depth Normal Normal Respiratory Pattern Regular Regular Blood Pressure 175/85 H Blood Pressure [Right Arm] 195/86 H Blood Pressure Mean 115 Blood Pressure Mean [Right Arm] 122 Pulse Oximetry 96 98 96 Oxygen Delivery Method Room Air Room Air Room Air Sepsis Recent Fever Within 48 Hours No Sepsis New/Unexplained Change in Mental Status No Sepsis Action Taken by Nursing No Action Required Constitutional: Vital signs reviewed. Eyes: Pupils are equal round reactive to light. Conjunctiva are noninjected. ENT: Pharynx is clear without erythema or exudate. Mucous membranes are very dry. Neck supple without meningeal signs. Respiratory: Clear to auscultation bilaterally. Breath sounds are equal bilaterally. Cardiovascular: Regular rate and rhythm. No rubs or gallops. GI: Soft, nondistended and nontender. Bowel sounds are present. Abdominal would with wound VAC attached. Musculoskeletal: No peripheral edema. No lower extremity tenderness. Integumentary: No cyanosis. Neurological: The patient is awake and alert. No focal deficits. Psychiatric: Normal affect. Course Course 0947: The patient was evaluated in room B07. A complete history and physical exam was performed. 1056: I updated the patient and her family about the results. The patient was in agreement with the plan for hospitalization. The staff is reattempting to get an IV. 1058: I spoke with Dr. Gay Collins, [facility] hospitalist, about the patient's case. She will further evaluate the patient. Administered Medications Clopidogrel Bisulfate (Plavix) 75 mg PO QAM ROD Stop: 09/14/19 13:29 Last Admin: 08/15/19 14:54 Dose: 75 mg Documented by: [id number] Fluticasone/Vilanterol (Breo Ellipta) 1 puffs INH DAILY ROD Stop: 09/14/19 08:59 Last Admin: 08/15/19 15:07 Dose: Not Given Documented by: [id number] Furosemide (Lasix) 40 mg PO QAM ROD Stop: 09/14/19 13:29 Last Admin: 08/15/19 14:53 Dose: 40 mg Documented by: [id number] Heparin Sodium (Porcine) (Heparin Sodium (Porcine)) 5,000 units SQ Q8 ROD Stop: 09/14/19 13:59 Last Admin: 08/15/19 14:53 Dose: 5,000 units Documented by: [id number] Cosigned by: [id number] Sodium Chloride (Nss 1000ml) 1,000 mls @ 125 mls/hr IV .Q8H ROD Stop: 08/16/19 05:29 Last Admin: 08/15/19 13:26 Dose: 125 mls/hr Documented by: [id number] Lactobacillus Acidophilus (Floranex) 4 tab PO DAILY ROD Stop: 09/14/19 13:29 Last Admin: 08/15/19 14:54 Dose: 4 tab Documented by: [id number] Levothyroxine Sodium (Synthroid) 37.5 mcg PO DAILY ROD Stop: 09/14/19 13:29 Last Admin: 08/15/19 14:54 Dose: 37.5 mcg Documented by: [id number] Discontinued Medications Sodium Chloride (Nss 1000ml) 250 mls @ 999 mls/hr IV .Q16M ONE Stop: 08/15/19 10:12 Last Infusion: 08/15/19 12:31 Dose: 0 mls/hr Documented by: [id number] Admin: 08/15/19 12:15 Dose: 999 mls/hr Documented by: [id number] Medical Decision Making Differential Diagnosis The differential diagnosis includes: dehydration, UTI, pneumonia, metabolic derangement, and cardiac Medical Records Attestation: I reviewed the patient's medical records. I did perform a limited focused review of portions of the patient's old chart on the electronic medical record. Per the patient's EMR, the patient was seen on August 09, 2019 for multiple medical issues, including heart failure and an abdominal wall abscess. Home Medications Current Medication List: was personally reviewed by tn Laboratory Data Attestation: I reviewed the patient's lab results. Result diagrams: 08/15/19 10:10 08/15/19 14:06 Lab Results 08/15/19 08/15/19 08/15/19 Range/Units 10:10 10:10 10:10 WBC 8.63 (4.8-10.8) K/uL RBC 3.43 L (4.2-5.4) M/uL Hgb 10.3 L (12.0-16.0) g/dL Hct 32.6 L (37-47) % MCV 95.0 (80-100) fL MCH 30.0 (25-34) pg MCHC 31.6 L (32-36) g/dL RDW Std Deviation 57.3 H (36.4-46.3) fL RDW Coeff of Elliot 16.5 H (11.5-14.5) % Plt Count 244 (130-400) K/uL MPV 9.1 (7.4-10.4) fL Immature Gran % (Auto) 0.3 % Neut % (Auto) 73.9 % Lymph % (Auto) 10.7 % Bowie % (Auto) 6.7 % Eos % (Auto) 7.9 % Baso % (Auto) 0.5 % Immature Gran # (Auto) 0.03 H (0.00-0.02) K/uL Neut # (Auto) 6.38 (1.4-6.5) K/uL Lymph # (Auto) 0.92 L (1.2-3.4) K/uL Bowie # (Auto) 0.58 (0.11-0.59) K/uL Eos # (Auto) 0.68 H (0-0.5) K/uL Baso # (Auto) 0.04 (0-0.2) K/uL Sodium 137 (136-145) mmol/L Potassium 4.5 (3.5-5.1) mmol/L Chloride 103 (98-107) mmol/L Carbon Dioxide 32 (21-32) mmol/L Anion Gap 2.0 L (3-11) BUN 35 H (7-18) mg/dl Creatinine 3.26 H (0.6-1.2) mg/dl Est Cr Clr Drug Dosing 10.5 ml/min Est GFR ( Amer) 14.1 Est GFR (Non-Af Amer) 12.1 BUN/Creatinine Ratio 10.7 (10-20) Glucose 100 H (70-99) mg/dl Calcium 12.8 H* (8.5-10.1) mg/dl Magnesium (1.8-2.4) mg/dl Total Bilirubin 0.4 (0.2-1) mg/dl AST 17 (15-37) U/L ALT 18 (12-78) U/L Alkaline Phosphatase 87 (45-117) U/L Troponin I < 0.015 (0-0.045) ng/ml Total Protein 7.3 (6.4-8.2) gm/dl Albumin 2.8 L (3.4-5.0) gm/dl Globulin 4.5 H (2.5-4.0) gm/dl Albumin/Globulin Ratio 0.6 L (0.9-2) TSH 23.200 H (0.300-4.500) uIu/ml Free T4 1.12 (0.8-1.6) ng/dl Urine Color Urine Appearance (Clear) Urine pH (4.5-7.5) Ur Specific [place] (1.000-1.030) Urine Protein (Negative) Urine Glucose (UA) (Negative) Urine Ketones (Negative) Urine Blood (Negative) Urine Nitrite (Negative) Urine Bilirubin (Negative) Urine Urobilinogen (Negative) Ur Leukocyte Esterase (Negative) Urine WBC (Auto) (0-5) /hpf Urine RBC (Auto) (0-4) /hpf U Hyaline Cast (Auto) (0-5) /lpf U Epithel Cells (Auto) (0-5) /lpf Urine Bacteria (Auto) (Negative) 08/15/19 08/15/19 Range/Units 10:10 10:37 WBC (4.8-10.8) K/uL RBC (4.2-5.4) M/uL Hgb (12.0-16.0) g/dL Hct (37-47) % MCV (80-100) fL MCH (25-34) pg MCHC (32-36) g/dL RDW Std Deviation (36.4-46.3) fL RDW Coeff of Elliot (11.5-14.5) % Plt Count (130-400) K/uL MPV (7.4-10.4) fL Immature Gran % (Auto) % Neut % (Auto) % Lymph % (Auto) % Bowie % (Auto) % Eos % (Auto) % Baso % (Auto) % Immature Gran # (Auto) (0.00-0.02) K/uL Neut # (Auto) (1.4-6.5) K/uL Lymph # (Auto) (1.2-3.4) K/uL Bowie # (Auto) (0.11-0.59) K/uL Eos # (Auto) (0-0.5) K/uL Baso # (Auto) (0-0.2) K/uL Sodium (136-145) mmol/L Potassium (3.5-5.1) mmol/L Chloride (98-107) mmol/L Carbon Dioxide (21-32) mmol/L Anion Gap (3-11) BUN (7-18) mg/dl Creatinine (0.6-1.2) mg/dl Est Cr Clr Drug Dosing ml/min Est GFR ( Amer) Est GFR (Non-Af Amer) BUN/Creatinine Ratio (10-20) Glucose (70-99) mg/dl Calcium (8.5-10.1) mg/dl Magnesium 3.2 H (1.8-2.4) mg/dl Total Bilirubin (0.2-1) mg/dl AST (15-37) U/L ALT (12-78) U/L Alkaline Phosphatase (45-117) U/L Troponin I (0-0.045) ng/ml Total Protein (6.4-8.2) gm/dl Albumin (3.4-5.0) gm/dl Globulin (2.5-4.0) gm/dl Albumin/Globulin Ratio (0.9-2) TSH (0.300-4.500) uIu/ml Free T4 (0.8-1.6) ng/dl Urine Color Yellow Urine Appearance Cloudy A (Clear) Urine pH 8.5 H (4.5-7.5) Ur Specific [place] 1.010 (1.000-1.030) Urine Protein Negative (Negative) Urine Glucose (UA) Negative (Negative) Urine Ketones Negative (Negative) Urine Blood Trace H (Negative) Urine Nitrite Negative (Negative) Urine Bilirubin Negative (Negative) Urine Urobilinogen Negative (Negative) Ur Leukocyte Esterase 3+ H (Negative) Urine WBC (Auto) >30 H (0-5) /hpf Urine RBC (Auto) 0-4 (0-4) /hpf U Hyaline Cast (Auto) 5-10 H (0-5) /lpf U Epithel Cells (Auto) >30 H (0-5) /lpf Urine Bacteria (Auto) 3+ H (Negative) Imaging Data Radiologist's Impression: Radiology results as stated below per my review and the radiologist's interpretation: SINGLE VIEW CHEST CLINICAL HISTORY: Generalized weakness. FINDINGS: An AP, portable, upright chest radiograph is compared to study dated 05/14/2019 and correlated with chest CT dated 03/29/2019. The examination is degraded by portable technique and patient rotation. The heart is enlarged noting atherosclerotic calcification of the thoracic aorta. The pulmonary vasculature is noncongested. Chronic interstitial thickening is similar to previous. There is chronic elevation of the right hemidiaphragm with bibasilar scarring/atelectasis. No airspace consolidation or large pleural effusion is identified. No pneumothorax is seen. The skeletal structures are osteopenic. The bony thorax is grossly intact. Degenerative change is noted in the shoulders and thoracic spine. Superior subluxation of the left humeral head suggests chronic rotator cuff injury. A staghorn calculus is noted in the right kidney. IMPRESSION: Cardiomegaly with no acute cardiopulmonary abnormality. ACT 112: Negative or not required by law. Electronically signed by: Justin Flores M.D. 08/15/2019 10:27 AM ECG Data Attestation: I personally reviewed and interpreted this ECG as follows: Indication: + other (weakness) Rate (beats per minute): 57 Rhythm: + sinus bradycardia ECG ST segments: no ST elevation ECG Findings: + Other (QTC is 424 milliseconds); no PVCs Blood Pressure Blood Pressure Findings: Elevated blood pressure Blood Pressure Disposition: further management by hospitalist CAITLIN Chiu I did evaluate the patient as noted above. The patient is presenting with some intermittent confusion with generalized weakness. She could not get up today. The family provided history as well as the patient. They state that she has not been eating or drinking very well for the past week. She does states she has be en making urine but not very much. IV access was established. The patient was placed on a continuous circuit judge. I did order and personally review the patient's 12-lead EKG as described above. Her twelve-lead EKG shows sinus bradycardia without acute ischemia. I did order and personally reviewed the images of the patient's chest x-ray as described above. Chest x-ray shows no evidence of pneumonia. I did order a urine analysis. She does have some signs of infection. I did order and review the patient's blood work as noted in the electronic medical record. Her white blood cell count is not elevated. She is anemic. She also has acute kidney injury with a creatinine over 3. Her calcium is also elevated over 12. She was given normal saline IV. I did discuss the test results with the patient. I did discuss the case with the hospitalist and shoe parts caser. Impression & Plan ROXANNA (acute kidney injury), Anemia, Dehydration, Hypercalcemia, Urinary tract infection Discharge Plan Visit Data *Final* Discharge Date/Time: 08/15/19 13:00 Chief Complaint: Dehydration ED Provider: Vladislav Sow Discharge Problem: ROXANNA (acute kidney injury), Anemia, Dehydration, Hypercalcemia, Urinary tract infection Patient Disposition: Admitted As Inpatient Discharge Instructions Interventions: ED Discharge Assessment Last Done: 08/15/19 13:00 Discharge Problem: Anemia Qualifiers: Anemia type: unspecified type Qualified Code(s): D64.9 - Anemia, unspecified Urinary tract infection Qualifiers: Urinary tract infection type: site unspecified Hematuria presence: with hematuria Qualified Code(s): N39.0 - Urinary tract infection, site not specified The scribe's documentation has been prepared under my direction and personally reviewed by me in its entirety. I confirm that the note above accurately reflects all work, treatment, procedures, and medical decision making performed by me.
[2019-08-15] MEDS ORDERED: BREO ELLIPTA: ORDER AWAITING ACTION SCH (16:00)
[2019-08-15 19:52] LABS: BUN Creatinine Ratio 10.3 (10-20); Calcium 11.7 mg/dl (8.5-10.1); Creatinine Clr Calc Pharmacy 9.9 ml/min; Est GFR (African American) 14.5; Est GFR (Non-African American) 12.5
[2019-08-15] MEDS: ATORVASTATIN 20 MG TAB PO SCH (20:27)
[2019-08-15] MEDS: DICLOFENAC SOD 1% GEL 100 GM TUBE EXT SCH (20:27)
[2019-08-15] MEDS: SODIUM CHLOR 0.45% + 20MEQ KCL 20 MEQ/1,000 ML BAG IV SCH (20:58)
[2019-08-16 01:42] LABS: BUN Creatinine Ratio 10.3 (10-20); Calcium 10.8 mg/dl (8.5-10.1); Creatinine Clr Calc Pharmacy 10.1 ml/min; Est GFR (Non-African American) 12.9; Potassium 3.7 mmol/L (3.5-5.1)
[2019-08-16] MEDS: HydrALAZINE HCL 20 MG/ML VIAL IV PRN ×2 (04:39→08:48)
[2019-08-16] MEDS: HEPARIN SOD 5,000 UNIT/0.5 ML VIAL SQ SCH ×3 (05:23→20:53)
[2019-08-16 07:03] LABS: Sodium Random Urine 142 mmol/L; Urea Nitrogen, Urine Random 145 mg/dl
[2019-08-16] MEDS: SODIUM CHLOR 0.45% + 20MEQ KCL 20 MEQ/1,000 ML BAG IV SCH (07:03)
[2019-08-16 07:20] LABS: Basophils # (auto) 0.05 K/uL (0-0.2); Basophils % (auto) 0.6 %; Eosinophils # (auto) 0.79 K/uL (0-0.5); Eosinophils % (auto) 10.2 %; Hematocrit (blood only) 32.2 % (37-47); Hemoglobin 10.3 g/dL (12.0-16.0); Immature Granulocytes # (auto) 0.05 K/uL (0.00-0.02); Immature Granulocytes % (auto) 0.6 %; Lymphocytes # (auto) 1.28 K/uL (1.2-3.4); Lymphocytes % (auto) 16.5 %; Mean Corpuscular Volume 93.9 fL (80-100); Monocytes # (auto) 0.64 K/uL (0.11-0.59); Monocytes % (auto) 8.2 %; Neutrophils # (auto) 4.96 K/uL (1.4-6.5); Neutrophils % (auto) 63.9 %; Platelet Count 197 K/uL (130-400); RDW Coefficient of Variation 16.4 % (11.5-14.5); RDW Standard Deviation 56.2 fL (36.4-46.3); Red Blood Count 3.43 M/uL (4.2-5.4); White Blood Count 7.77 K/uL (4.8-10.8)
[2019-08-16 07:53] LABS: BUN Creatinine Ratio 10.3 (10-20); Calcium 10.8 mg/dl (8.5-10.1); Est GFR (African American) 14.7; Est GFR (Non-African American) 12.6; Potassium 3.8 mmol/L (3.5-5.1)
[2019-08-16] MEDS: LACTOBACILLUS ACIDOPHILUS (FLORANEX) TAB PO SCH (08:54)
[2019-08-16] MEDS: AMIODARONE 200 MG TAB PO SCH (08:55)
[2019-08-16] MEDS: FLUTICASONE/VILANTEROL INHALER INH SCH (08:55)
[2019-08-16] MEDS: FUROSEMIDE 40 MG TAB PO SCH (08:55)
[2019-08-16] MEDS: CLOPIDOGREL BISULFATE 75 MG TAB PO SCH (08:56)
[2019-08-16] MEDS: DICLOFENAC SOD 1% GEL 100 GM TUBE EXT SCH ×2 (08:57→20:54)
[2019-08-16] MEDS: METOPROLOL SUCC 25MG EXT REL TAB PO SCH (08:59)
[2019-08-16] MEDS: LEVOTHYROXINE SODIUM 50 MCG TABLET PO SCH (09:02)
--- NOTE | 2019-08-16 09:41 | Ultrasound Report ---
RENAL ULTRASOUND HISTORY: Acute kidney injury. COMPARISON: Abdomen and pelvis CT 05/30/2019. FINDINGS: Right kidney: 8.8 cm. No hydronephrosis. Focal scarring within the upper pole which contains a 1.7 cm stone. Left kidney: 10.1 cm. No hydronephrosis. Moderate cortical scarring/thinning. There is a 3.8 x 3.0 x 3.0 cm hypoechoic exophytic lesion within the lower pole. This appears to demonstrate a thickened wal l and is concerning for a mass. Bladder: No bladder wall thickening. The bilateral ureteral jets were identified. IMPRESSION: 1. A 3.8 x 3.0 x 3.0 cm hypoechoic exophytic mass within the lower pole the left kidney. This has dec reased in size compared to the prior CT examination but remains concerning for a renal neoplasm. 2. No hydronephrosis. 3. Right-sided nephrolithiasis. 4. Focal scarring within the upper pole of the right kidney. ACT 112: Negative or not required by law. Electronically signed by: Junior Starr M.D. 08/16/2019 9:39 AM
[2019-08-16 18:15] LABS: BUN Creatinine Ratio 10.2 (10-20); Calcium 10.4 mg/dl (8.5-10.1); Creatinine Clr Calc Pharmacy 9.3 ml/min; Est GFR (African American) 13.6; Est GFR (Non-African American) 11.7; Potassium 3.9 mmol/L (3.5-5.1)
[2019-08-16] MEDS ORDERED: SODIUM CHLORIDE 0.9% 1000ML 1,000 ML IV SCH (18:30)
[2019-08-16] MEDS: ATORVASTATIN 20 MG TAB PO SCH (20:54)
--- NOTE | 2019-08-16 21:41 | Hospitalist Progress Note ---
Date of Service August 16, 2019 Assessment & Plan (1) Hypercalcemia: improving. cause uncertain, but no evidence of hyperparathyroidism. I don't see meds that would cause such. dehydration can cause mild hypercalcemia but not to the degree that she has. highest concern is that the left renal mass is cancer and that it is secreting a PTH-related peptide. Plan - Cont hydration; change fluids to NS. Check PTH-related peptide. Repeat BMP tonight and in am. Reasonable to cont lasix. Consider IV bisphosphonate. Check 25-OH vit D level. Suspect the hypercalcemia caused her recent mental status changes, lethargy, etc. (2) ROXANNA (acute kidney injury): significant acute renal failure. no appreciable improvement with hydration since admission. patient was volume contracted and thus this could have been a pre-renal event. alternatively the high calcium may have caused the injury. cannot rule out other etiologies. no evidence of obstruction on renal u/s. has large right-sided stone but it is in the renal pelvis not causing problems at this time. change fluids from 1/2 NS to NS . give 1 additional liter overnight. repeat BMP am. strongly consider nephrology consultation. at this time her acid-base status, potassium, etc are acceptable. (3) PAF (paroxysmal atrial fibrillation): Cont amiodarone to maintain NSR. Decision was made in past NOT to anticoagulate because of previous intra- abdominal hematoma. cont toprol xl daily. (4) CAD (coronary artery disease): Stable. No ischemic symptoms. Cont BB, statin, plavix. (5) Hyperlipidemia: Continue atorvastatin 20 mg p.o. daily (6) Hypothyroidism: Patient with markedly elevated TSH = 23 At a previous TSH level of 18 her synthroid had been increased from 25 to 37.5 will increase her synthroid again to 50mcg daily. repeat TSH in 6 weeks. (7) Obstructive sleep apnea, adult: CPAP nightly (8) Chronic cerebral ischemia: Patient had a stroke in 2001 and has residual left-sided weakness of the upper and lower extremity Also with TIA during a hospital stay in 2019. Continue Plavix 75 mg p.o. daily for secondary prevention Continue atorvastatin 20 mg p.o. daily (9) Anemia: H/H acceptable today Follow (10) Abscess of abdominal wall: Patient had intra-abdominal hematoma in 2019 that became secondarily infected and ultimately spontaneously ruptured. She then had I/D with washout by Dr Pablo for this. Placement of wound vac after that and had such in place for months. 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 Thus, she had exploratory laparotomy with lysis of adhesions, resection of portion of transverse colon that contained a colo-cutaneous fistula, resection of overlying hernia mesh from previous hernai repair -- performed at [facility] on 07/17/2019. D/c from [facility] on 08/03/[address] I looked at wound today with Rukhsana from wound care. Wound is clean and w/o infection at this time. Cont wound vac. (11) CHF (congestive heart failure): chronic diastolic CHF. volume contracted today. would hold lasix in am while awaiting AM labs Continue metoprolol (12) Asthma: Chronic. Stable. Cont breo and albuterol prn (13) Candidal intertrigo: Continue nystatin (14) Metabolic encephalopathy: 2nd to hypercalcemia. this was present on admission. overall improving but not back to baseline yet. anticipate it will improve to baseline as calcium normalizes. (15) DVT prophylaxis: change heparin to BID dosing in light of acute renal failure daughter & son-in-law extensively updated at bedside PT, OT evals ordered Subjective spent lengthy period of time at bedside (30 min) as pt's daughter and son-in-law were present. patient continues with mild confusion although it is improved. confusion started a few days prior to admission. daughter recounts much of the hospital stay at [facility] for her bowel resection, abd wound, etc. since hospital d/c on 08/03 the wound vac had been changed twice a week. saw PCP after hospital d/c - labs drawn - creatinine was mildly elevated above baseline then. daughter mentioned that her hospital stay at [facility] was complicated by acute renal failure but fortunately it resolved before d/c while at [facility] patient ate poorly. family admits she has lost significant amount of weight since the summer. daughter says "she had a couple good months at home." daughter/son-in-law with numerous questions during the visit. tele with NSR overnight. Review of Systems Constitutional: + fatigue and + anorexia; no fever and no chills Respiratory: no cough and no dyspnea Cardiovascular: no chest pain Gastrointestinal: no abdominal pain and no nausea Physical Exam Constitutional: + ill appearing, + altered mental status and + frail appearing; no acute distress ENMT: Ears: + EAC abnormality Mouth: + dry oral mucous membranes Respiratory: normal respiratory effort, lungs clear to auscultation Cardiovascular: Rate/Rhythm: regular rate and regular rhythm Heart Sounds: normal S1 and normal S2; no murmur Vessels: posterior tibial pulses present and dorsalis pedis pulses present; no JVD Extremities: no edema Gastrointestinal (Abdomen): normal bowel sounds, soft, nontender, no hepatosplenomegaly Inspection/Auscultation: + abdominal surgical scar (multiple; large abdominal wall wound (see below)) Skin: + turgor decreased and + wound (very large irregularly shaped central wound; pink bed; no purulence) Psychiatric: Orientation: alert, oriented to person and oriented to place; + not oriented to time Results & Data Vital Signs (Past 12 Hours) Vital Signs Temp Pulse Pulse Pulse Resp BP Pulse Ox 08/16/19 19:55 36.9 C 59 L 20 188/72 H 96 08/16/19 16:00 60 08/16/19 15:50 36.4 C L 59 L 20 172/71 H 99 08/16/19 11:37 36.6 C 69 18 118/66 98 Laboratory Results Laboratory Results - last 24 hr 08/16/19 08/16/19 08/16/19 01:05 07:07 07:07 WBC 7.77 RBC 3.43 L Hgb 10.3 L Hct 32.2 L MCV 93.9 MCH 30.0 MCHC 32.0 RDW Std Deviation 56.2 H RDW Coeff of Elliot 16.4 H Plt Count 197 MPV 9.0 Immature Gran % (Auto) 0.6 Neut % (Auto) 63.9 Lymph % (Auto) 16.5 [place] % (Auto) 8.2 Eos % (Auto) 10.2 Baso % (Auto) 0.6 Immature Gran # (Auto) 0.05 H Neut # (Auto) 4.96 Lymph # (Auto) 1.28 [place] # (Auto) 0.64 H Eos # (Auto) 0.79 H Baso # (Auto) 0.05 Sodium 138 139 Potassium 3.7 3.8 Chloride 107 106 Carbon Dioxide 27 26 Anion Gap 4.0 7.0 BUN 32 H 32 H Creatinine 3.09 H 3.15 H Est Cr Clr Drug Dosing 10.1 10.0 Est GFR ( Amer) 15.0 14.7 Est GFR (Non-Af Amer) 12.9 12.6 BUN/Creatinine Ratio 10.3 10.3 Glucose 78 79 Calcium 10.8 H 10.8 H Specimen Hemolysis Ur Random Sodium Ur Random Urea Nitrogn 08/16/19 08/16/19 17:20 Unknown WBC RBC Hgb Hct MCV MCH MCHC RDW Std Deviation RDW Coeff of [place] Plt Count MPV Immature Gran % (Auto) Neut % (Auto) Lymph % (Auto) [place] % (Auto) Eos % (Auto) Baso % (Auto) Immature Gran # (Auto) Neut # (Auto) Lymph # (Auto) [place] # (Auto) Eos # (Auto) Baso # (Auto) Sodium 137 Potassium 3.9 Chloride 104 Carbon Dioxide 24 Anion Gap 9.0 BUN 34 H Creatinine 3.36 H Est Cr Clr Drug Dosing 9.3 Est GFR ( Amer) 13.6 Est GFR (Non-Af Amer) 11.7 BUN/Creatinine Ratio 10.2 Glucose 83 Calcium 10.4 H Specimen Hemolysis Ur Random Sodium 142 Ur Random Urea Nitrogn 145 PG Care Time/CCT Total # of Minutes Spent Total Time Spent with Patient: Total time spent is greater than 50% in coordination of care (as documented) at patient's floor/unit and/or counseling patient: (1) CAD (coronary artery disease) Associated angina: without angina Coronary Disease-Associated Artery/Lesion type: [place] artery [place] vs. transplanted heart: [place] heart Qualified Code(s): I25.10 - Atherosclerotic heart disease of [place] coronary artery without angina pectoris (2) CHF (congestive heart failure) Heart failure chronicity: acute Heart failure type: unspecified Qualified Code(s): I50.9 - Heart failure, unspecified (3) Anemia Anemia type: unspecified type Qualified Code(s): D64.9 - Anemia, unspecified (4) Hyperlipidemia Hyperlipidemia type: mixed hyperlipidemia Qualified Code(s): E78.2 - Mixed hyperlipidemia (5) Hypothyroidism Hypothyroidism type: acquired Qualified Code(s): E03.9 - Hypothyroidism, unspecified (6) Asthma Asthma complication type: uncomplicated Asthma persistence: unspecified Asthma severity: unspecified severity Qualified Code(s): J45.909 - Unspecified asthma, uncomplicated
[2019-08-17] MEDS: LEVOTHYROXINE SODIUM 50 MCG TABLET PO SCH (06:09)
[2019-08-17 07:58] LABS: BUN Creatinine Ratio 9.9 (10-20); Creatinine Clr Calc Pharmacy 9.4 ml/min; Est GFR (African American) 13.6; Est GFR (Non-African American) 11.7; Potassium 3.4 mmol/L (3.5-5.1)
[2019-08-17] MEDS: FLUTICASONE/VILANTEROL INHALER INH SCH (08:08)
[2019-08-17] MEDS: AMIODARONE 200 MG TAB PO SCH (08:09)
[2019-08-17] MEDS: LACTOBACILLUS ACIDOPHILUS (FLORANEX) TAB PO SCH (08:11)
[2019-08-17] MEDS: CLOPIDOGREL BISULFATE 75 MG TAB PO SCH (08:12)
[2019-08-17] MEDS: METOPROLOL SUCC 25MG EXT REL TAB PO SCH (08:12)
--- NOTE | 2019-08-17 11:06 | Nephrology Consultation ---
Date of Consultation August 17, 2019 Assessment & Plan (1) ROXANNA (acute kidney injury): ROXANNA due to dehydration in the setting of hypercalcemia. Patient is recovering from major abdominal surgery. Upon returning home she has had poor oral intake/hydration but remained on Ca+vit D supplement. Renal US was negative for hydronephrosis. Urinalysis is negative for protein or blood. Urine sediment is negative for cellular casts -- Hold Furosemide -- Will provide hydration w/ 0.9 NS @ 80 cc/hr IV x 2000cc, then stop -- Monitor daily PRP (2) Hypercalcemia: Likely related to Ca + vitamin D supplement -- Hold Ca + vitamin D -- PTH appropriately low. PTHrp is pending. Vitamin D level - wnl -- If Ca trends upward despite IV hydration and holding Ca & vit D supplements, may then need to consider bone scan (3) Renal mass: -- Imaging reveals a complex cystic mass involving lower pole of L kidney. 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 Patient may benefit from MRI once she recovers from her acute illness. History of Present Illness Reason for Consultation: ROXANNA Attending Physician: Trevor Cardoso History of Present Illness Ms. Parra is an 88 year old white female who is seen at the request of Dr. Cardoso for evaluation of ROXANNA. Medical records in the EMR were reviewed today and are summarized as follows: Ms. Parra has no h/o CKD. Her baseline Cr is 0.9. She has a h/o prior abdominal surgeries and has required mesh to support closure of the surgical incisions. Her medical history is also significant for TIA and has been on Plavix therapy. In 12/31 Ms. Parra fell and sustained an abdominal wall hematoma. This became infected and ruptured. Ms. Parra required surgical I&D with washout of the wound. Unfortunately the incision did not heal. She w as found to have exposed mesh and developed a colocutaneous fistula. Ms. Parra was transferred to [facility] 08/02 and underwent exploratory laparotomy with lysis of adhesions, resection of portion of transverse colon, and resection of overlying hernia mesh. Her hospitalization was complicated by anemia and ROXANNA. She was transfused and did not require HD. Creatinine improved to 1.0 by the time of discharge from [facility]. Upon returning home Ms. Parra resumed her Ca + vit D therapy. Her daughter reports that she had poor oral intake. Over the last 24 hours Ms. Parra has become progressively weaker. She was brought to the ED where she was noted to be clinically dehydrated. Ca was elevated at 12.8 (albumin 2.8) and serum Cr was 3.3. Renal US was negative for obstruction but revealed a 3.8 complex cystic lesion involving the lower pole of the L kidney suspicious for malignancy. Allergies Allergy/AdvReac Type Severity Reaction Status Date / Time oxycodone Allergy Mild RASH Verified 08/15/19 10:29 alendronate sodium Allergy Unknown [facility] LIST Verified 08/15/19 10:29 Bactrim [facility]ergy [facility] 02/07/18 04:16 cefuroxime Allergy Unknown UNKNOWN ON Verified 08/15/19 10:29 LIST Cipro Allergy Unknown Unknown Verified 02/07/18 21:42 ciprofloxacin Allergy Unknown UNKNOWN ON Verified 08/15/19 10:29 LIST codeine Allergy Unknown UNKNOWN ON Verified 08/15/19 10:29 LIST gabapentin Allergy Unknown UNKNOWN ON Verified 08/15/19 10:29 LIST meperidine Allergy Unknown UNKNOWN ON Verified 08/15/19 10:29 LIST piperacillin [From Zosyn] Allergy Unknown Unknown Unverified 08/15/19 10:29 propoxyphene Allergy Unknown UNKNOWN ON Verified 08/15/19 10:29 LIST Sulfa (Sulfonamide Allergy Unknown UNKNOWN ON Verified 08/15/19 10:29 Antibiotics) LIST sulfamethoxazole Allergy [facility] Verified 08/15/19 10:29 tazobactam [From Zosyn] Allergy Unknown Unknown Unverified 08/15/19 10:29 trimethoprim Allergy Unknown [facility] LIST Verified 08/15/19 10:29 amphetamine AdvReac Severe UNKNOWN ON Verified 08/15/19 10:29 LIST dextroamphetamine AdvReac Severe UNKNOWN ON Verified 08/15/19 10:29 LIST hydrochlorothiazide AdvReac Intermediate GI DISTRESS Verified 08/15/19 10:29 methyldopa AdvReac Intermediate GI DISTRESS Verified 08/15/19 10:29 fluoxetine [From Prozac] AdvReac Unknown Hallucinati Unverified 08/15/19 10:29 ng Home Medications Home Medications Medication Instructions Recorded Confirmed Type albuterol sulfate [Ventolin HFA] 1 - 2 puff INHALATION QID PRN 12/26/18 08/15/19 History cholecalciferol (vitamin D3) 2,000 unit PO QAM 12/26/18 08/15/19 History [Vitamin D3] multivitamin 1 tab PO QAM 12/26/18 08/15/19 History magnesium oxide 400 mg PO BID #60 tab 03/02/19 08/15/19 Rx acetaminophen 500 mg capsule 500 mg PO Q4H PRN MDD 6 tablets in 03/05/19 08/15/19 History 24 hours docusate sodium 100 mg capsule 100 mg PO BID PRN 03/05/19 08/15/19 History clopidogrel [Plavix] 75 mg PO QAM 03/18/19 08/15/19 History amiodarone 200 mg tablet 200 mg PO QAM #90 tab 04/17/19 08/15/19 Rx ferrous sulfate 325 mg (65 mg 325 mg PO BID #60 tab 04/20/19 08/15/19 Rx iron) tablet,delayed release atorvastatin 20 mg PO QPM 04/29/19 08/15/19 History furosemide 40 mg PO QAM 04/29/19 08/15/19 History nystatin 100,000 unit/gram topical 1 applic TOPICAL DAILY PRN gm 06/05/19 08/15/19 History powder levothyroxine 75 mcg tablet 37.5 mcg PO DAILY #45 tab 06/11/19 08/15/19 Rx diclofenac sodium 1 % topical gel 2 gm TOPICAL BID gm 08/03/19 08/15/19 History lactobacillus combination no.8 3 3,000 mmu cells PO DAILY 08/09/19 08/15/19 History billion cell capsule amlodipine 10 mg PO DAILY 08/15/19 08/15/19 History calcium carbonate [Calcium 600] 600 mg PO DAILY 08/15/19 08/15/19 History metoprolol succinate 25 mg PO DAILY 08/15/19 08/15/19 History potassium chloride 10 meq PO BID 08/15/19 08/15/19 History Patient History Medical History A-fib (Chronic) Abscess of abdominal wall (Chronic) Asthma (Chronic) CAD (coronary artery disease) (Chronic) Chronic asthmatic bronchitis (Chronic) Chronic cerebral ischemia (Resolved) Chronic kidney disease, stage 3a (Chronic) Depression (Resolved) HTN (hypertension) (Chronic) Hyperlipidemia (Chronic) Hypothyroidism (Chronic) Metabolic encephalopathy (Resolved) Obstructive sleep apnea, adult (Chronic) Renal mass Transient ischemic attack (Resolved) Tremor (Chronic) Vertigo (Resolved) Surgical History S/P cholecystectomy (Resolved) S/P hernia repair (Resolved) S/P hysterectomy (Resolved) Family History Mother , age 86 of an NE. She also had COPD. Myocardial infarction COPD (chronic obstructive pulmonary disease) Father , age 47 of an NE. Myocardial infarction Social History Preferred Language: Mong[place]ian Communication Ability: Effective Visual Impairment: Limited Hearing Ability: Normal Directional Bore Operator Required: No Beliefs That Will Affect Care: Yazidism Yazidism Beliefs: Hinduism. 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 Other Information That Helps Us Care for You: No other: 4 children, 1 is already Feels Safe at Home: Declines to Answer Smoking Status: Never smoker Second Hand Exposure: Yes (Grew up in a family that smoked.) ; Hx Alcohol Use: No Hx Substance Use: Yes substance use type: prescription drug Last Used Substance: Unknown Last Used Substance Other:: Tramadol in hospital with last admission at [facility]. Uses Tylenol. Childhood Exposure to Second-Hand Smoke: No Review of Systems Constitutional: + weakness; no fever Eyes: no worsening vision and no problem reported Ear, Nose, Mouth, Throat: no problem reported Respiratory: no cough and no dyspnea Cardiovascular: no chest pain, no palpitations and no edema Gastrointestinal: no abdominal pain, no nausea, no vomiting and no diarrhea/loose stools Genitourinary: no dysuria and no hematuria Musculoskeletal: no back pain Integumentary: no rash Neurologic: no falls, no dizziness and no confusion Physical Exam Constitutional: + frail appearing; not in distress Eyes: PERRL, conjunctivae normal, anicteric sclerae ENMT: Ears: no external ear abnormality Mouth: + dry oral mucous membranes Neck: trachea midline, no thyromegaly Respiratory: normal respiratory effort, lungs clear to auscultation Cardiovascular: RRR, no murmur, no edema Gastrointestinal (Abdomen): normal bowel sounds, soft, nontender, no hepatosplenomegaly Musculoskeletal: Extremities: no cyanosis Skin: + turgor decreased Neurologic: awake; not confused Results & Data Vital Signs (Past 12 Hours) Vital Signs Temp Pulse Pulse Resp BP Pulse Ox 08/17/19 08:24 66 08/17/19 07:38 36 C L 55 L 16 189/74 H 98 08/17/19 03:16 36.5 C 57 L 18 187/80 H 100 08/17/19 01:32 68 08/16/19 23:36 36.5 C 55 L 19 178/78 H 97 Laboratory Results Laboratory Tests 08/15/19 08/15/19 08/16/19 10:10 14:06 07:07 WBC 7.77 Hgb 10.3 L Hct 32.2 L Plt Count 197 Sodium Potassium Chloride Carbon Dioxide BUN Creatinine Glucose Calcium 12.8 H* Albumin 2.8 L 25-OH Vitamin D Total PTH Intact 19.0 08/17/19 08/17/19 07:11 07:11 WBC Hgb Hct Plt Count Sodium 138 Potassium 3.4 L Chloride 108 H Carbon Dioxide 22 BUN 33 H Creatinine 3.35 H Glucose 82 Calcium 10.0 Albumin 25-OH Vitamin D Total 34.8 PTH Intact Diagnostic Findings CXR 08/15/19: No CHF Renal US 08/16/19: 1. A 3.8 x 3.0 x 3.0 cm hypoechoic exophytic mass within the lower pole the left kidney. This has decreased in size compared to the prior CT examination but remains concerning for a renal neoplasm. 2. No hydronephrosis. 3. Right-sided nephrolithiasis. 4. Focal scarring within the upper pole of the right kidney. PG Care Time/CCT Total # of Minutes Spent Total Time Spent with Patient: Total time spent is greater than 50% in coordination of care (as documented) at patient's floor/unit and/or counseling patient:
[2019-08-17] MEDS: POTASSIUM CHLORIDE 20 MEQ TABCR PO SCH ×2 (11:18→21:27)
[2019-08-17] MEDS: HEPARIN SOD 5,000 UNIT/0.5 ML VIAL SQ SCH ×2 (11:50→21:26)
[2019-08-17] MEDS: SODIUM CHLORIDE 0.9% 1000ML 1,000 ML IV SCH ×2 (11:57→21:26)
--- NOTE | 2019-08-17 14:49 | XRay Report ---
SINGLE VIEW CHEST CLINICAL HISTORY: Right basilar rales. FINDINGS: 2 AP, portable, upright chest radiographs are compared to study dated 08/15/2019 and correlat ed with chest CT dated 03/29/2019. The examination is degraded by portable technique and patient rotat ion. The heart is enlarged noting atherosclerotic calcification of the thoracic aorta. There is promi nence of the pulmonary vasculature. Chronic interstitial thickening is similar to previous. There is chronic elevation of the right hemidiaphragm with bibasilar scarring/atelectasis. No airspace consoli dation or large pleural effusion is identified. No pneumothorax is seen. The skeletal structures are osteopenic. The bony thorax is grossly intact. Degenerative change is noted in the shoulders and thor acic spine. A staghorn calculus is noted in the right kidney. Cholecystectomy clips are seen in the r ight upper quadrant. IMPRESSION: Cardiomegaly with prominence of the pulmonary vasculature. Correlate clinically for evide nce of mild congestive failure. ACT 112: Negative or not required by law. Electronically signed by: Justin Flores M.D. 08/17/2019 2:48 PM
[2019-08-17] MEDS: ATORVASTATIN 20 MG TAB PO SCH (21:26)
[2019-08-17] MEDS ORDERED: AMLODIPINE BESYLATE 5 MG TAB PO STA (21:54)
--- NOTE | 2019-08-17 21:56 | Hospitalist Progress Note ---
Date of Service August 17, 2019 Assessment & Plan (1) Hypercalcemia: improved calcium down to 10 today (corrected closer to 11). no evidence of hyperparathyroidism. dehydration can cause mild hypercalcemia but not to the degree that she has. 25-OH vit D level wnl. seen by Dr Cuevas today from nephrology - he is concerned that Ca + Vit D supplement caused this; both on hold highest concern is that the left renal mass is cancer and that there could be bony mets from such Plan - Cont hydration with NS. PTH-related peptide pending. Repeat BMP am. Consider IV bisphosphonate if calcium level rises again. Suspect the hypercalcemia caused her recent mental status changes, lethargy, etc. All these symptoms have improved (2) ROXANNA (acute kidney injury): significant acute renal failure. no appreciable improvement with hydration since admission. patient was volume contracted and thus this could have been a pre-renal event. alternatively the high calcium may have caused the injury. cannot rule out other etiologies. no evidence of obstruction on renal u/s. has large right-sided stone but it is in the renal pelvis not causing problems at this time. has eosinophils on CBC w/ diff -- will send urine for eosinophils to r/o interstitial nephritis although no recent rash, new meds, etc (certainly could have had an abx at [facility] that caused AIN) (3) PAF (paroxysmal atrial fibrillation): Cont amiodarone to maintain NSR. Decision was made in past NOT to anticoagulate because of previous intra- abdominal hematoma. cont toprol xl daily. Tele stable. (4) CAD (coronary artery disease): Stable. No ischemic symptoms. Cont BB, statin, plavix. rales on exam today - check cxr, r/o developing CHF. (5) Hyperlipidemia: Continue atorvastatin 20 mg p.o. daily (6) Hypothyroidism: Patient with markedly elevated TSH = 23 At a previous TSH level of 18 her synthroid had been increased from 25 to 37.5 increased her synthroid again to 50mcg daily this admission. repeat TSH in 6 weeks. (7) Obstructive sleep apnea, adult: CPAP nightly (8) Chronic cerebral ischemia: Patient had a stroke in 2001 and has residual left-sided weakness of the upper and lower extremity Also with TIA during a hospital stay in 2019. Continue Plavix 75 mg p.o. daily for secondary prevention Continue atorvastatin 20 mg p.o. daily (9) Anemia: H/Hs have been acceptable Follow (10) Abscess of abdominal wall: Patient had intra-abdominal hematoma in 2019 that became secondarily infected and ultimately spontaneously ruptured. She then had I/D with washout by Dr Pablo for this. Placement of wound vac after that and had such in place for months. 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 Thus, she had exploratory laparotomy with lysis of adhesions, resection of portion of transverse colon that contained a colo-cutaneous fistula, resection of overlying hernia mesh from previous hernai repair -- performed at [facility] on 07/17/2019. D/c from [facility] on 08/03/[address]. Cont wound vac. (11) CHF (congestive heart failure): chronic diastolic CHF. holding lasix due to ROXANNA. cxr today due to rales - r/o pulmonary edema. Continue metoprolol. (12) Asthma: Chronic. Stable. Cont breo and albuterol prn no exacerbation (13) Candidal intertrigo: Continue nystatin (14) Metabolic encephalopathy: 2nd to hypercalcemia. this was present on admission. resolved (15) DVT prophylaxis: heparin 5000 BID cont PT, OT evals care plan d/w care team at multidisciplinary rounds today Subjective patient "feeling well" today appetite improved feels more awake and alert denies dyspnea denies abd pain tele stable overnight Review of Systems Constitutional: + fatigue; no fever, no chills and no anorexia Respiratory: no cough and no dyspnea Cardiovascular: no chest pain Gastrointestinal: no abdominal pain, no nausea and no vomiting Physical Exam Constitutional: + frail appearing (but looks better today ); no acute distress and no altered mental status ENMT: external ear and nose normal, oropharynx normal Mouth: oral mucous membranes not dry Respiratory: Auscultation: + crackles (mild - both bases) Cardiovascular: Rate/Rhythm: regular rate and regular rhythm Heart Sounds: normal S1 and normal S2; no murmur Vessels: posterior tibial pulses present and dorsalis pedis pulses present; no JVD Extremities: no edema Gastrointestinal (Abdomen): normal bowel sounds, soft, nontender, no hepatosplenomegaly abdominal binder in place Psychiatric: Orientation: alert, oriented to person, oriented to place and oriented to time Results & Data Vital Signs (Past 12 Hours) Vital Signs Temp Pulse Pulse Resp BP Pulse Ox 08/17/19 19:50 36.9 C 59 L 19 175/79 H 96 08/17/19 18:28 72 08/17/19 15:46 36.6 C 66 18 131/79 98 08/17/19 15:05 94 08/17/19 11:27 36.8 C 62 16 149/84 H 94 Laboratory Results Laboratory Results - last 24 hr 08/17/19 08/17/19 08/17/19 07:11 07:11 07:11 Sodium 138 Potassium 3.4 L Chloride 108 H Carbon Dioxide 22 Anion Gap 8.0 BUN 33 H Creatinine 3.35 H Est Cr Clr Drug Dosing 9.4 Est GFR ( Amer) 13.6 Est GFR (Non-Af Amer) 11.7 BUN/Creatinine Ratio 9.9 L Glucose 82 Calcium 10.0 25-OH Vitamin D Total 34.8 PTH Related Protein Pending PG Care Time/CCT Total # of Minutes Spent Total Time Spent with Patient: Total time spent is greater than 50% in coordination of care (as documented) at patient's floor/unit and/or counseling patient: (1) CAD (coronary artery disease) Coronary Disease-Associated Artery/Lesion type: [place] artery [place] vs. transplanted heart: [place] heart Associated angina: without angina Qualified Code(s): I25.10 - Atherosclerotic heart disease of [place] coronary artery without angina pectoris (2) Hyperlipidemia Hyperlipidemia type: mixed hyperlipidemia Qualified Code(s): E78.2 - Mixed hyperlipidemia (3) Hypothyroidism Hypothyroidism type: acquired Qualified Code(s): E03.9 - Hypothyroidism, unspecified (4) Anemia Anemia type: unspecified type Qualified Code(s): D64.9 - Anemia, unspecified (5) CHF (congestive heart failure) Heart failure chronicity: acute Heart failure type: unspecified Qualified Code(s): I50.9 - Heart failure, unspecified (6) Asthma Asthma severity: unspecified severity Asthma persistence: unspecified Asthma complication type: uncomplicated Qualified Code(s): J45.909 - Unspecified asthma, uncomplicated
[2019-08-18] MEDS: HydrALAZINE HCL 20 MG/ML VIAL IV PRN ×2 (04:51→12:09)
[2019-08-18 05:53] LABS: Hematocrit (blood only) 26.7 % (37-47); Hemoglobin 8.7 g/dL (12.0-16.0); Mean Corpuscular Hemoglobin 29.9 pg (25-34); Mean Corpuscular Hgb Conc 32.6 g/dL (32-36); Mean Corpuscular Volume 91.8 fL (80-100); Mean Platelet Volume 8.5 fL (7.4-10.4); Platelet Count 153 K/uL (130-400); RDW Coefficient of Variation 16.5 % (11.5-14.5); Red Blood Count 2.91 M/uL (4.2-5.4); White Blood Count 7.46 K/uL (4.8-10.8)
[2019-08-18] MEDS: LEVOTHYROXINE SODIUM 50 MCG TABLET PO SCH (06:26)
[2019-08-18 06:27] LABS: BUN Creatinine Ratio 11.7 (10-20); Calcium 8.5 mg/dl (8.5-10.1); Creatinine Clr Calc Pharmacy 12.4 ml/min; Est GFR (African American) 17.3; Potassium 3.4 mmol/L (3.5-5.1)
[2019-08-18] MEDS ORDERED: ERTAPENEM SODIUM 1,000 MG in SODIUM CHLORIDE 0.9% 50 ML IV SCH (09:00)
[2019-08-18] MEDS: POTASSIUM CHLORIDE 20 MEQ TABCR PO SCH ×2 (09:29→21:03)
[2019-08-18] MEDS: AMLODIPINE BESYLATE 5 MG TAB PO SCH (09:29)
[2019-08-18] MEDS: HEPARIN SOD 5,000 UNIT/0.5 ML VIAL SQ SCH ×2 (09:29→21:04)
[2019-08-18] MEDS: AMIODARONE 200 MG TAB PO SCH (09:31)
[2019-08-18] MEDS: METOPROLOL SUCC 25MG EXT REL TAB PO SCH (09:31)
[2019-08-18] MEDS: FLUTICASONE/VILANTEROL INHALER INH SCH (09:31)
[2019-08-18] MEDS: CLOPIDOGREL BISULFATE 75 MG TAB PO SCH (09:31)
[2019-08-18] MEDS: LACTOBACILLUS ACIDOPHILUS (FLORANEX) TAB PO SCH (09:31)
--- NOTE | 2019-08-18 09:50 | Nephrology Progress Note ---
Date of Service August 18, 2019 Assessment & Plan (1) ROXANNA (acute kidney injury): ROXANNA due to dehydration in the setting of hypercalcemia. Patient is recovering from major abdominal surgery. Upon returning home she has had poor oral intake/hydration but remained on Ca+vit D supplement. Renal US was negative for hydronephrosis. Urinalysis is negative for protein or blood. Urine sediment is negative for cellular casts -- Patient remains clinically volume contracted. Continue to hold Furosemide -- Continue hydration w/ 0.9 NS @ 80 cc/hr IV x 2000cc, then stop -- Creatinine has improved to 2.7 this morning. Electrolyte balance is acceptable. Monitor daily PRP (2) Hypercalcemia: Likely related to Ca + vitamin D supplement -- Ca has corrected off supplements and with IV hydration -- Continue to hold Ca + vitamin D -- PTH appropriately low. PTHrp is pending. Vitamin D level - wnl (3) Renal mass: -- Imaging reveals a complex cystic mass involving lower pole of L kidney. 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 Patient may benefit from MRI once she recovers from her acute illness. Subjective Ms. Parra was seen & examined in her hospital room this morning. She has tolerated IV hydration without dyspnea or LE swelling. She reports improved appetite and oral hydration. Review of Systems Constitutional: + weakness; no fever Eyes: no worsening vision and no problem reported Ear, Nose, Mouth, Throat: no problem reported Respiratory: no cough and no dyspnea Cardiovascular: no chest pain, no palpitations and no edema Gastrointestinal: no abdominal pain, no nausea, no vomiting and no diarrhea/loose stools Genitourinary: no dysuria and no hematuria Musculoskeletal: no back pain Integumentary: no rash Neurologic: no falls, no dizziness and no confusion Physical Exam Constitutional: + frail appearing; not in distress Eyes: PERRL, conjunctivae normal, anicteric sclerae ENMT: Ears: no external ear abnormality Mouth: + dry oral mucous membranes Neck: trachea midline, no thyromegaly Respiratory: normal respiratory effort, lungs clear to auscultation Cardiovascular: RRR, no murmur, no edema Gastrointestinal (Abdomen): normal bowel sounds, soft, nontender, no hepatosplenomegaly Musculoskeletal: Extremities: no cyanosis Skin: + turgor decreased Neurologic: awake; not confused Results & Data Vital Signs (Past 12 Hours) Vital Signs Temp Pulse Pulse Resp BP Pulse Ox 08/18/19 08:00 36.4 C L 58 L 18 168/66 H 99 08/18/19 04:50 58 L 178/76 H 08/18/19 04:40 36.3 C L 77 18 182/79 H 99 08/18/19 00:58 63 08/17/19 23:20 36.4 C L 57 L 19 152/79 H 99 Laboratory Results Laboratory Tests 08/18/19 08/18/19 05:40 05:40 WBC 7.46 Hgb 8.7 L Hct 26.7 L Plt Count 153 Sodium 141 Potassium 3.4 L Chloride 115 H Carbon Dioxide 20 L BUN 32 H Creatinine 2.74 H D Glucose 85 PG Care Time/CCT Total # of Minutes Spent Total Time Spent with Patient: Total time spent is greater than 50% in coordination of care (as documented) at patient's floor/unit and/or counseling patient:
[2019-08-18] MEDS: SODIUM CHLORIDE 0.9% 1000ML 1,000 ML IV SCH ×2 (11:32→22:22)
--- NOTE | 2019-08-18 20:12 | Hospitalist Progress Note ---
Date of Service August 18, 2019 Assessment & Plan (1) Hypercalcemia: resolved calcium normal today no evidence of hyperparathyroidism. seen by Dr Cuevas, nephrology - he is concerned that Ca + Vit D supplement caused this; both on hold highest concern is that the left renal mass is cancer and that there could be bony mets from such leading to high calcium Plan - Cont hydration with NS as advised by Dr Cuevas (additional 2 liters given). PTH-related peptide pending. Repeat BMP am. Consider IV bisphosphonate if calcium level rises again. HOLDING lasix for now. HOLDING calcium/vit D supplementation. Suspect the hypercalcemia caused her recent mental status changes, lethargy, et c. All these symptoms have improved and resolved (2) UTI (urinary tract infection): ?symptomatic? she was quite ill upon presentation - not sure if this contributed to admission symptoms or not will Rx for 3 days then re-eval due to multiple abx allergies - ertapenem renally-dosed daily (3) ROXANNA (acute kidney injury): significant acute renal failure. but finally improving today. patient was volume contracted at admission and thus this could have been a pre- renal event. alternatively the high calcium may have caused the injury. cannot rule out other etiologies. no evidence of obstruction on renal u/s. has large right-sided stone but it is in the renal pelvis not causing problems at this time. has eosinophils on CBC w/ diff -- urine for eosinophils to r/o interstitial nephritis sent however no recent rash, new meds, etc (certainly could have had an abx at [facility] that caused AIN) BMP in am appreciate nephrology assistance (4) PAF (paroxysmal atrial fibrillation): Cont amiodarone to maintain NSR. Decision was made in past NOT to anticoagulate because of previous intra- abdominal hematoma. cont toprol xl daily. (5) CAD (coronary artery disease): Stable. Cont BB, statin, plavix. (6) Hyperlipidemia: Continue atorvastatin 20 mg p.o. daily (7) Hypothyroidism: Patient with markedly elevated TSH = 23 At a previous TSH level of 18 her synthroid had been increased from 25 to 37.5 increased her synthroid again to 50mcg daily this admission. repeat TSH in 6 weeks. (8) Obstructive sleep apnea, adult: CPAP nightly (9) Chronic cerebral ischemia: Patient had a stroke in 2001 and has residual left-sided weakness of the upper and lower extremity Also with TIA during a hospital stay in 2019. Continue Plavix 75 mg p.o. daily for secondary prevention Continue atorvastatin 20 mg p.o. daily (10) Anemia: H/H dropped overnight but she has received copious hydration -- drop could be dilutional. repeat CBC in am for stability (11) Abscess of abdominal wall: Patient had intra-abdominal hematoma in 2019 that became secondarily infected and ultimately spontaneously ruptured. She then had I/D with washout by Dr Pablo for this. Placement of wound vac after that and had such in place for months. 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 Thus, she had exploratory laparotomy with lysis of adhesions, resection of portion of transverse colon that contained a colo-cutaneous fistula, resection of overlying hernia mesh from previous hernai repair -- performed at [facility] on 07/17/2019. D/c from [facility] on 08/03/[address] Cont wound vac. No evidence of complicating infection at this time. (12) CHF (congestive heart failure): chronic diastolic CHF. holding lasix due to ROXANNA. does not look volume overloaded today on exam. (13) Asthma: Chronic. Stable. Cont breo and albuterol prn no exacerbation (14) Candidal intertrigo: Continue nystatin (15) Metabolic encephalopathy: 2nd to hypercalcemia. seems about resolved. (16) DVT prophylaxis: heparin 5000 BID cont PT, OT care plan discussed extensively with family at bedside today Subjective pt sitting in chair eating lunch appetite very good today she feels much better confusion much better multiple family at bedside -- daughter, son in law, tele normal overnight daughter w/ numerous questions Review of Systems Constitutional: no fever Respiratory: + cough (with eating/drinking (at times)); no dyspnea Cardiovascular: no chest pain Gastrointestinal: no abdominal pain, no nausea and no vomiting Physical Exam Constitutional: no acute distress and no altered mental status continues to look better ENMT: external ear and nose normal, oropharynx normal Respiratory: normal respiratory effort, lungs clear to auscultation Auscultation: + crackles (scan - both bases); no wheezes Cardiovascular: Rate/Rhythm: regular rate and regular rhythm Heart Sounds: normal S1 and normal S2; no murmur Vessels: posterior tibial pulses present and dorsalis pedis pulses present; no JVD Extremities: no edema Gastrointestinal (Abdomen): normal bowel sounds, soft, nontender, no hepatosplenomegaly Psychiatric: Orientation: alert, oriented to person, oriented to place and oriented to time Results & Data Vital Signs (Past 12 Hours) Vital Signs Temp Pulse Pulse Resp BP Pulse Ox 08/18/19 16:00 73 08/18/19 15:09 36.4 C L 66 17 156/75 H 99 08/18/19 12:01 36.5 C 61 20 172/77 H 98 Laboratory Results Laboratory Results - last 24 hr 08/18/19 08/18/19 05:40 05:40 WBC 7.46 RBC 2.91 L Hgb 8.7 L Hct 26.7 L MCV 91.8 MCH 29.9 MCHC 32.6 RDW Std Deviation 55.0 H RDW Coeff of [place] 16.5 H Plt Count 153 MPV 8.5 Sodium 141 Potassium 3.4 L Chloride 115 H Carbon Dioxide 20 L Anion Gap 6.0 BUN 32 H Creatinine 2.74 H D Est Cr Clr Drug Dosing 12.4 Est GFR ( Amer) 17.3 Est GFR (Non-Af Amer) 15.0 BUN/Creatinine Ratio 11.7 Glucose 85 Calcium 8.5 Diagnostic Findings urine cx with 2 pathogens (see final urine cx report) PG Care Time/CCT Total # of Minutes Spent Total Time Spent with Patient: Total time spent is greater than 50% in coordination of care (as documented) at patient's floor/unit and/or counseling patient: (1) CAD (coronary artery disease) Coronary Disease-Associated Artery/Lesion type: [place] artery [place] vs. transplanted heart: [place] heart Associated angina: without angina Qualified Code(s): I25.10 - Atherosclerotic heart disease of [place] coronary artery without angina pectoris (2) Hyperlipidemia Hyperlipidemia type: mixed hyperlipidemia Qualified Code(s): E78.2 - Mixed hyperlipidemia (3) Hypothyroidism Hypothyroidism type: acquired Qualified Code(s): E03.9 - Hypothyroidism, unspecified (4) Anemia Anemia type: unspecified type Qualified Code(s): D64.9 - Anemia, unspecified (5) CHF (congestive heart failure) Heart failure chronicity: acute Heart failure type: unspecified Qualified Code(s): I50.9 - Heart failure, unspecified (6) Asthma Asthma severity: unspecified severity Asthma persistence: unspecified Asthma complication type: uncomplicated Qualified Code(s): J45.909 - Unspecified asthma, uncomplicated (7) UTI (urinary tract infection) Urinary tract infection type: acute cystitis Hematuria presence: without hematuria Qualified Code(s): N30.00 - Acute cystitis without hematuria
[2019-08-18] MEDS: ATORVASTATIN 20 MG TAB PO SCH (21:02)
[2019-08-19] MEDS: HydrALAZINE HCL 20 MG/ML VIAL IV PRN ×2 (04:23→22:31)
[2019-08-19] MEDS: LEVOTHYROXINE SODIUM 50 MCG TABLET PO SCH (06:32)
[2019-08-19 07:37] LABS: BUN Creatinine Ratio 12.1 (10-20); Creatinine Clr Calc Pharmacy 16.7 ml/min; Est GFR (African American) 24.3; Potassium 3.9 mmol/L (3.5-5.1)
[2019-08-19] MEDS: AMIODARONE 200 MG TAB PO SCH (08:34)
[2019-08-19] MEDS: AMLODIPINE BESYLATE 5 MG TAB PO SCH (08:34)
[2019-08-19] MEDS: POTASSIUM CHLORIDE 20 MEQ TABCR PO SCH (08:34)
[2019-08-19] MEDS: LACTOBACILLUS ACIDOPHILUS (FLORANEX) TAB PO SCH (08:34)
[2019-08-19] MEDS: HEPARIN SOD 5,000 UNIT/0.5 ML VIAL SQ SCH ×2 (08:34→21:46)
[2019-08-19] MEDS: METOPROLOL SUCC 25MG EXT REL TAB PO SCH (08:34)
[2019-08-19] MEDS: CLOPIDOGREL BISULFATE 75 MG TAB PO SCH (08:34)
[2019-08-19] MEDS: ERTAPENEM SODIUM 500 MG in SODIUM CHLORIDE 0.9% 50 ML IV SCH (08:35)
[2019-08-19] MEDS: FLUTICASONE/VILANTEROL INHALER INH SCH (08:35)
--- NOTE | 2019-08-19 09:48 | Nephrology Progress Note ---
Date of Service August 19, 2019 Assessment & Plan (1) ROXANNA (acute kidney injury): ROXANNA due to dehydration in the setting of hypercalcemia. Patient is recovering from major abdominal surgery. Upon returning home she has had poor oral intake/hydration but remained on Ca+vit D supplement. Renal US was negative for hydronephrosis. Urinalysis is negative for protein or blood. Urine sediment is negative for cellular casts -- Patient remains clinically volume contracted. Continue to hold Furosemide -- Continue hydration w/ 0.9 NS @ 80 cc/hr IV x 2000cc, then stop -- Creatinine has improved to 2.0 this morning. Electrolyte balance is acceptable. Monitor daily PRP (2) Hypercalcemia: Likely related to Ca + vitamin D supplement -- Ca has corrected off supplements and with IV hydration -- Continue to hold Ca + vitamin D -- PTH appropriately low. PTHrp is pending. Vitamin D level - wnl (3) Renal mass: -- Imaging reveals a complex cystic mass involving lower pole of L kidney. 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 Patient may benefit from MRI once she recovers from her acute illness. Subjective Ms. Parra was seen & examined in her hospital room this morning. She is tolerating IV hydration without dyspnea or LE swelling. She reports improved appetite and strength. Review of Systems Constitutional: + weakness; no fever Eyes: no worsening vision and no problem reported Ear, Nose, Mouth, Throat: no problem reported Respiratory: no cough and no dyspnea Cardiovascular: no chest pain, no palpitations and no edema Gastrointestinal: no abdominal pain, no nausea, no vomiting and no diarrhea/loose stools Genitourinary: no dysuria and no hematuria Musculoskeletal: no back pain Integumentary: no rash Neurologic: no falls, no dizziness and no confusion Physical Exam Constitutional: + frail appearing; not in distress Eyes: PERRL, conjunctivae normal, anicteric sclerae ENMT: Ears: no external ear abnormality Mouth: + dry oral mucous membranes Neck: trachea midline, no thyromegaly Respiratory: normal respiratory effort, lungs clear to auscultation Cardiovascular: RRR, no murmur, no edema Gastrointestinal (Abdomen): normal bowel sounds, soft, nontender, no hepatosplenomegaly Musculoskeletal: Extremities: no cyanosis Skin: + turgor decreased Neurologic: awake; not confused Results & Data Vital Signs (Past 12 Hours) Vital Signs Temp Pulse Pulse Pulse Resp BP Pulse Ox 08/19/19 08:38 60 08/19/19 07:26 36.4 C L 56 L 20 142/66 H 99 08/19/19 04:00 36.5 C 54 L 18 185/75 H 98 08/18/19 23:08 61 08/18/19 22:44 36.4 C L 60 17 166/78 H 97 Laboratory Results Laboratory Tests 08/19/19 06:41 Sodium 143 Potassium 3.9 Chloride 118 H Carbon Dioxide 20 L BUN 25 H Creatinine 2.07 H D Glucose 78 PG Care Time/CCT Total # of Minutes Spent Total Time Spent with Patient: Total time spent is greater than 50% in coordination of care (as documented) at patient's floor/unit and/or counseling patient:
[2019-08-19] MEDS: SODIUM CHLORIDE 0.9% 1000ML 1,000 ML IV SCH ×2 (10:40→22:38)
--- NOTE | 2019-08-19 18:34 | Hospitalist Progress Note ---
Date of Service August 19, 2019 Assessment & Plan (1) Hypercalcemia: resolved calcium again normal today no evidence of hyperparathyroidism. seen by Dr Cuevas, nephrology - he is concerned that Ca + Vit D supplement caused this; both on hold another possibility is that the left renal mass is cancer and that there could be bony mets from such leading to high calcium but less likely Plan - Cont hydration with NS PTH-related peptide pending. Repeat BMP am. Consider IV bisphosphonate if calcium level rises again. HOLDING lasix for now. HOLDING calcium/vit D supplementation. (2) UTI (urinary tract infection): ?symptomatic? vs asymptomatic she was quite ill upon presentation - not sure if this contributed to admission symptoms or not will Rx for 3 days minimum; today is day #2 due to multiple abx allergies - ertapenem renally-dosed daily (3) ROXANNA (acute kidney injury): IMPROVING. patient was volume contracted at admission and thus this could have been a pre- renal event. alternatively the high calcium may have caused the injury. no evidence of obstruction on renal u/s. has eosinophils on CBC w/ diff -- urine for eosinophils to r/o interstitial nephritis sent however no recent rash, new meds, etc (certainly could have had an abx at [facility] that caused AIN) BMP in am appreciate nephrology assistance continue hydration (4) PAF (paroxysmal atrial fibrillation): Cont amiodarone to maintain NSR. cont toprol xl daily. deemed a poor anticoagulation candidate in the past. (5) CAD (coronary artery disease): Stable. Cont BB, statin, plavix. (6) Hyperlipidemia: Continue atorvastatin 20 mg p.o. daily (7) Hypothyroidism: Patient with markedly elevated TSH = 23 At a previous TSH level of 18 her synthroid had been increased from 25 to 37.5 by her PCP increased her synthroid again to 50mcg daily this admission. repeat TSH in 6 weeks. (8) Obstructive sleep apnea, adult: CPAP (9) Chronic cerebral ischemia: Patient had a stroke in 2001 and has residual left-sided weakness of the upper and lower extremity Also with TIA during a hospital stay in 2019. Continue Plavix 75 mg p.o. daily for secondary prevention Continue atorvastatin 20 mg p.o. daily (10) Anemia: check CBC in am for stability. did have drop in H/H since admission but possibly dilutional? (11) Abscess of abdominal wall: Patient had intra-abdominal hematoma in 2018 that became secondarily infected and ultimately spontaneously ruptured. She then had I/D with washout by Dr Pablo - February 2019. Had wound vac after that and had such in place for months. 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 Thus, she had exploratory laparotomy with lysis of adhesions, resection of portion of transverse colon that contained a colo-cutaneous fistula, resection of overlying hernia mesh from previous hernia repair. This was done at [facility] on 07/17/2019. D/c from [facility] [place] on 08/03/[address] Cont wound vac. No evidence of complicating infection at this time. Appreciate wound care team assistance. (12) CHF (congestive heart failure): chronic diastolic CHF. holding lasix due to ROXANNA. remains compensated. (13) Asthma: Chronic. Stable. Cont breo and albuterol prn (14) Candidal intertrigo: Continue nystatin (15) Metabolic encephalopathy: 2nd to hypercalcemia. resolved. fully a/o x 3 today. (16) DVT prophylaxis: heparin 5000 BID cont PT, OT; SNF for rehab recommended by both updated son-in-law by phone 08/19 and updated numerous family members at bedside on 08/18 Subjective saw patient early afternoon today. she was sleeping but woke up easily. she reported having spent most of the morning in the chair. her appetite is good. she denies any cough or dyspnea. denies abd pain. she does admit to feeling tired as "yesterday was a busy day with lots of visito rs." tele w/o arrhythmia overnight. Review of Systems Constitutional: no fever and no chills Cardiovascular: no chest pain Gastrointestinal: no abdominal pain, no nausea, no vomiting, no constipation and no diarrhea/loose stools Physical Exam Constitutional: no acute distress and no altered mental status looks tired today ENMT: external ear and nose normal, oropharynx normal Respiratory: no respiratory distress Auscultation: + crackles (left base); no wheezes Cardiovascular: Rate/Rhythm: regular rate and regular rhythm Heart Sounds: normal S1 and normal S2; no murmur Vessels: posterior tibial pulses present and dorsalis pedis pulses present; no JVD Extremities: no edema Gastrointestinal (Abdomen): normal bowel sounds, soft, nontender, no hepatosplenomegaly Inspection/Auscultation: + abdominal surgical scar (multiple) midline lower abdomen - suspected scar tissue palpable in the abdominal wall. large abdominal binding in place. wound vac in place. Skin: + wound (abd wall - with vac in place) Psychiatric: Orientation: alert, oriented to person, oriented to place and oriented to time Results & Data Vital Signs (Past 12 Hours) Vital Signs Temp Pulse Pulse Pulse Resp BP BP 08/19/19 16:00 60 08/19/19 15:38 36.4 C L 60 18 160/80 H 08/19/19 11:49 36.2 C L 59 L 20 146/75 H 08/19/19 08:38 60 08/19/19 08:00 60 08/19/19 07:26 36.4 C L 56 L 20 142/66 H Pulse Ox 08/19/19 16:00 08/19/19 15:38 99 08/19/19 11:49 100 08/19/19 08:38 08/19/19 08:00 08/19/19 07:26 99 Laboratory Results Laboratory Results - last 24 hr 08/19/19 06:41 Sodium 143 Potassium 3.9 Chloride 118 H Carbon Dioxide 20 L Anion Gap 5.0 BUN 25 H Creatinine 2.07 H D Est Cr Clr Drug Dosing 16.7 Est GFR ( Amer) 24.3 Est GFR (Non-Af Amer) 21.0 BUN/Creatinine Ratio 12.1 Glucose 78 Calcium 8.0 L PG Care Time/CCT Total # of Minutes Spent Total Time Spent with Patient: Total time spent is greater than 50% in coordination of care (as documented) at patient's floor/unit and/or counseling patient: (1) UTI (urinary tract infection) Hematuria presence: without hematuria Urinary tract infection type: acute cystitis Qualified Code(s): N30.00 - Acute cystitis without hematuria (2) CAD (coronary artery disease) Associated angina: without angina Coronary Disease-Associated Artery/Lesion type: [place] artery [place] vs. transplanted heart: [place] heart Qualified Code(s): I25.10 - Atherosclerotic heart disease of [place] coronary artery without angina pectoris (3) CHF (congestive heart failure) Heart failure chronicity: acute Heart failure type: unspecified Qualified Code(s): I50.9 - Heart failure, unspecified (4) Anemia Anemia type: unspecified type Qualified Code(s): D64.9 - Anemia, unspecified (5) Hyperlipidemia Hyperlipidemia type: mixed hyperlipidemia Qualified Code(s): E78.2 - Mixed hyperlipidemia (6) Hypothyroidism Hypothyroidism type: acquired Qualified Code(s): E03.9 - Hypothyroidism, unspecified (7) Asthma Asthma complication type: uncomplicated Asthma persistence: unspecified Asthma severity: unspecified severity Qualified Code(s): J45.909 - Unspecified asthma, uncomplicated
[2019-08-19] MEDS: ATORVASTATIN 20 MG TAB PO SCH (21:46)
[2019-08-20] MEDS: LEVOTHYROXINE SODIUM 50 MCG TABLET PO SCH (06:03)
[2019-08-20 07:43] LABS: Hematocrit (blood only) 27.6 % (37-47); Hemoglobin 8.9 g/dL (12.0-16.0); Mean Corpuscular Hemoglobin 30.9 pg (25-34); Mean Corpuscular Hgb Conc 32.2 g/dL (32-36); Mean Corpuscular Volume 95.8 fL (80-100); Mean Platelet Volume 8.6 fL (7.4-10.4); Platelet Count 157 K/uL (130-400); RDW Coefficient of Variation 16.9 % (11.5-14.5); RDW Standard Deviation 59.5 fL (36.4-46.3); Red Blood Count 2.88 M/uL (4.2-5.4)
[2019-08-20] MEDS: AMIODARONE 200 MG TAB PO SCH (08:13)
[2019-08-20] MEDS: AMLODIPINE BESYLATE 5 MG TAB PO SCH (08:13)
[2019-08-20] MEDS: CLOPIDOGREL BISULFATE 75 MG TAB PO SCH (08:14)
[2019-08-20] MEDS: LACTOBACILLUS ACIDOPHILUS (FLORANEX) TAB PO SCH (08:14)
[2019-08-20] MEDS: POTASSIUM CHLORIDE 20 MEQ TABCR PO SCH (08:14)
[2019-08-20] MEDS: METOPROLOL SUCC 25MG EXT REL TAB PO SCH (08:14)
[2019-08-20] MEDS: FLUTICASONE/VILANTEROL INHALER INH SCH (08:14)
[2019-08-20 08:19] LABS: BUN Creatinine Ratio 12.1 (10-20); Calcium 7.7 mg/dl (8.5-10.1); Creatinine Clr Calc Pharmacy 20.2 ml/min; Est GFR (African American) 30.2; Est GFR (Non-African American) 26.1; Potassium 3.4 mmol/L (3.5-5.1)
[2019-08-20] MEDS: ERTAPENEM SODIUM 500 MG in SODIUM CHLORIDE 0.9% 50 ML IV SCH (08:23)
--- NOTE | 2019-08-20 09:50 | Nephrology Progress Note ---
Date of Service August 20, 2019 Assessment & Plan (1) ROXANNA (acute kidney injury): ROXANNA due to dehydration in the setting of hypercalcemia. Patient is recovering from major abdominal surgery. Upon returning home she has had poor oral intake/hydration but remained on Ca+vit D supplement. Renal US was negative for hydronephrosis. Urinalysis is negative for protein or blood. Urine sediment is negative for cellular casts. Renal function continues to improve. Decent UO. Ca improved. BP high -- DC IV fluid, encourage po intake -- If BP remain elevated off of IV fluid, suggest increase Amlodipine to 10 mg/d --Renal panel daily, expect renal function to continue to improve --keep off of Ca and vit D, ok to take multivitamin --Pts PCP already is planning for Urology evaluation of L renal mass/cyst as an outpt when pt clinically improve. Will follow (2) Hypercalcemia: (3) Renal mass: Jesus Oshea was seen and examined with her Son in law at bedside. Overall doing better, appetite improved, decent po intake. Decent UO, BP slightly elevated. Renal function continues to improve. Review of Systems Review of Systems: All systems reviewed & are unremarkable except as noted in HPI & below Physical Exam Constitutional: + ill appearing; no acute distress Respiratory: normal respiratory effort Auscultation: + crackles (b/l base) Cardiovascular: RRR, no murmur, no edema Gastrointestinal (Abdomen): wound vac in place Neurologic: awake; not confused Psychiatric: A+Ox3, euthymic affect Results & Data Vital Signs (Past 12 Hours) Vital Signs Temp Pulse Pulse Resp BP Pulse Ox 08/20/19 08:24 36.3 C L 65 18 152/75 H 98 08/20/19 04:00 36.6 C 66 18 153/74 H 97 08/20/19 00:20 68 08/19/19 23:00 36.5 C 62 18 156/75 H 98 08/19/19 22:30 181/73 H PG Care Time/CCT Total # of Minutes Spent Total Time Spent with Patient: Total time spent is greater than 50% in coordination of care (as documented) at patient's floor/unit and/or counseling patient:
[2019-08-20] MEDS: HEPARIN SOD 5,000 UNIT/0.5 ML VIAL SQ SCH ×2 (09:53→20:44)
[2019-08-20] MEDS: ALBUTEROL HFA 8 GM INHALER INH PRN ×2 (15:37→21:27)
[2019-08-20] MEDS: ATORVASTATIN 20 MG TAB PO SCH (20:44)
--- NOTE | 2019-08-20 22:57 | Hospitalist Progress Note ---
Date of Service August 20, 2019 Assessment & Plan (1) Hypercalcemia: resolved calcium 7.7 today no evidence of hyperparathyroidism. nephrology is concerned that Ca + Vit D supplement caused this; both on hold another possibility is that the left renal mass is cancer and that there could be bony mets from such leading to high calcium but less likely Plan - stop IV fluids today, follow up on PTH related peptide, send out (2) UTI (urinary tract infection): ?symptomatic? vs asymptomatic she was quite ill upon presentation - not sure if this contributed to admission symptoms or not will Rx for 3 days minimum; today is day #3 due to multiple abx allergies - ertapenem renally-dosed daily (3) ROXANNA (acute kidney injury): IMPROVING. patient was volume contracted at admission and thus this could have been a pre- renal event. alternatively the high calcium may have caused the injury. no evidence of obstruction on renal u/s. has eosinophils on CBC w/ diff -- urine for eosinophils to r/o interstitial nephritis sent however no recent rash, new meds, etc (certainly could have had an abx at [facility] that caused AIN) Cr down to 1.7, nearly resolved, making adequate urine, electrolytes stable stopped IV fluids / appreciate nephrology input (4) PAF (paroxysmal atrial fibrillation): Cont amiodarone to maintain NSR. cont toprol xl daily. deemed a poor anticoagulation candidate in the past. (5) CAD (coronary artery disease): Stable. Cont BB, statin, plavix. (6) Hyperlipidemia: Continue atorvastatin 20 mg p.o. daily (7) Hypothyroidism: Patient with markedly elevated TSH = 23 At a previous TSH level of 18 her synthroid had been increased from 25 to 37.5 by her PCP increased her synthroid again to 50mcg daily this admission. repeat TSH in 6 weeks. (8) Obstructive sleep apnea, adult: CPAP (9) Chronic cerebral ischemia: Patient had a stroke in 2001 and has residual left-sided weakness of the upper and lower extremity Also with TIA during a hospital stay in 2019. Continue Plavix 75 mg p.o. daily for secondary prevention Continue atorvastatin 20 mg p.o. daily (10) Anemia: Hb stable at 8.9 today (11) Abscess of abdominal wall: Patient had intra-abdominal hematoma in 2019 that became secondarily infected and ultimately spontaneously ruptured. She then had I/D with washout by Dr Pablo - February 2019. Had wound vac after that and had such in place for months. 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 Thus, she had exploratory laparotomy with lysis of adhesions, resection of portion of transverse colon that contained a colo-cutaneous fistula, resection of overlying hernia mesh from previous hernia repair. This was done at [facility] on 07/17/2019. [place] [facility] [place] Cont wound vac. No evidence of complicating infection at this time. Appreciate wound care team assistance, they changed wound vac on 08/20 (12) CHF (congestive heart failure): chronic diastolic CHF. holding lasix due to ROXANNA. remains compensated. likely resume Lasix after discharge (13) Asthma: Chronic. Stable. Cont breo and albuterol prn (14) Candidal intertrigo: Continue nystatin (15) Metabolic encephalopathy: 2nd to hypercalcemia. resolved. fully a/o x 3 today. (16) DVT prophylaxis: heparin 5000 BID cont PT, OT; SNF for rehab recommended by both updated family at the bedside anticipate d/c in 2 days, will look into SNF Subjective patient continues to get stronger, sitting up in chair today eating well, trying to stay well hydrated, her IV fluids were stopped today by nephrology discussed with Dr. Irving, appreciate her input Cr down to 1.7 today, still up from baseline, Ca is stable at 7.7 Hb stable at 8.9, WBC normal updated patient, daughter and son in law at the bedside, likely for SNF in two days discussed plan with case management Review of Systems Review of Systems: All systems reviewed & are unremarkable except as noted in HPI & below Constitutional: + weakness; no fever and no fatigue Respiratory: no cough, no dyspnea and no dyspnea on exertion Cardiovascular: no chest pain and no edema Gastrointestinal: no abdominal pain, no nausea, no vomiting, no constipation and no diarrhea/loose stools Physical Exam Constitutional: WD/WN, vitals as above + thin and + frail appearing Eyes: PERRL, conjunctivae normal, anicteric sclerae ENMT: external ear and nose normal, oropharynx normal Neck: trachea midline, no thyromegaly Respiratory: normal respiratory effort, lungs clear to auscultation (decreased in the bases) Cardiovascular: RRR, no murmur, no edema Gastrointestinal (Abdomen): normal bowel sounds, soft, nontender, no hepatosplenomegaly Musculoskeletal: Head/Neck/Chest: normocephalic and head atraumatic Extremities: + abnormal strength (generalized weakness) Skin: no rashes, warm and dry Neurologic: patellar DTR's 2+ bilat, sensation intact and PERRL, EOMI, acco mmodation nl, no face palsy, no dysarthria Psychiatric: A+Ox3, euthymic affect Lymphatic: no cervical or axillary lymphadenopathy Results & Data Vital Signs (Past 12 Hours) Vital Signs Temp Pulse Pulse Resp BP Pulse Ox 08/20/19 19:18 37.0 C 63 18 168/72 H 99 08/20/19 16:20 61 08/20/19 15:00 36.4 C L 60 18 169/76 H 97 08/20/19 12:36 36.4 C L 67 18 128/70 99 Laboratory Results Laboratory Results - last 24 hr 08/20/19 08/20/19 07:28 07:28 WBC 6.40 RBC 2.88 L Hgb 8.9 L Hct 27.6 L MCV 95.8 MCH 30.9 MCHC 32.2 RDW Std Deviation 59.5 H RDW Coeff of Elliot 16.9 H Plt Count 157 MPV 8.6 Sodium 145 Potassium 3.4 L Chloride 120 H Carbon Dioxide 17 L Anion Gap 9.0 BUN 21 H Creatinine 1.73 H D Est Cr Clr Drug Dosing 20.2 Est GFR ( Amer) 30.2 Est GFR (Non-Af Amer) 26.1 BUN/Creatinine Ratio 12.1 Glucose 88 Calcium 7.7 L Medications Administered Current Inpatient Medications Acetaminophen (Tylenol) 500 mg PO Q4H PRN PRN Reason: pain/fever Albuterol (Ventolin Hfa) 2 puffs INH QID PRN PRN Reason: Shortness Of Breath Or Wheezing Stop: 09/14/19 13:15 Last Admin: 08/20/19 21:27 Dose: 2 puffs Documented by: Amiodarone HCl (Cordarone) 200 mg PO [facility] Stop: 09/15/19 08:59 Last Admin: 08/20/19 08:13 Dose: 200 mg Documented by: Amlodipine Besylate (Norvasc) 10 mg PO [facility] Stop: 09/19/19 08:59 Last Admin: 08/20/19 08:13 Dose: 10 mg Documented by: Atorvastatin Calcium (Lipitor) 20 mg PO QPM [facility] Stop: 09/14/19 20:59 Last Admin: 08/20/19 20:44 Dose: 20 mg Documented by: Clopidogrel Bisulfate (Plavix) 75 mg PO QAM [facility] Stop: 09/14/19 13:29 Last Admin: 08/20/19 08:14 Dose: 75 mg Documented by: Diclofenac Sodium (Voltaren 1% Top) 2 gm EXT BID [facility] Stop: 09/14/19 20:59 Last Admin: 08/16/19 20:54 Dose: 2 gm Documented by: Docusate Sodium (Colace) 100 mg PO BID PRN PRN Reason: Constipation Stop: 09/14/19 13:15 Fluticasone/Vilanterol (Breo Ellipta) 1 puffs INH DAILY [facility] Stop: 09/14/19 08:59 Last Admin: 08/20/19 08:14 Dose: 1 puffs Documented by: Furosemide (Lasix) 40 mg PO QAM [facility] Stop: 09/14/19 13:29 Last Admin: 08/16/19 08:55 Dose: 40 mg Documented by: Heparin Sodium (Porcine) (Heparin Sodium (Porcine)) 5,000 units SQ Q12H [facility] Stop: 09/16/19 09:59 Last Admin: 08/20/19 20:44 Dose: 5,000 units Documented by: Hydralazine HCl (Hydralazine Hcl) 5 mg IV Q4H PRN PRN Reason: Hypertension Stop: 09/15/19 04:23 Last Admin: 08/19/19 22:31 Dose: 5 mg Documented by: Ertapenem 500 mg/ Sodium (Chloride) 55 mls @ 100 mls/hr IV Q24H [facility]; Protocol Stop: 08/23/19 08:59 Last Infusion: 08/20/19 08:58 Dose: Infused Documented by: Lactobacillus Acidophilus (Floranex) 4 tab PO DAILY [facility] Stop: 09/14/19 13:29 Last Admin: 08/20/19 08:14 Dose: 4 tab Documented by: Levothyroxine Sodium (Synthroid) 50 mcg PO DAILYBB [facility] Stop: 09/15/19 08:59 Last Admin: 08/20/19 06:03 Dose: 50 mcg Documented by: Metoprolol Succinate (Toprol Xl) 25 mg PO DAILY [facility] Stop: 09/15/19 08:59 Last Admin: 08/20/19 08:14 Dose: 25 mg Documented by: Nystatin (Mycostatin) 1 appln EXT DAILY PRN PRN Reason: Unknown Stop: 09/14/19 13:15 Potassium Chloride (Klor-Con M20) 20 meq PO DAILY [facility] Stop: 09/18/19 08:59 Last Admin: 08/20/19 08:14 Dose: 20 meq Documented by: PG Care Time/CCT Total # of Minutes Spent Total Time Spent with Patient: Total time spent is greater than 50% in coordination of care (as documented) at patient's floor/unit and/or counseling patient: (1) UTI (urinary tract infection) Urinary tract infection type: acute cystitis Hematuria presence: without hematuria Qualified Code(s): N30.00 - Acute cystitis without hematuria (2) CAD (coronary artery disease) Coronary Disease-Associated Artery/Lesion type: [place] artery [place] vs. transplanted heart: [place] heart Associated angina: without angina Qualified Code(s): I25.10 - Atherosclerotic heart disease of [place] coronary artery without angina pectoris (3) Hyperlipidemia Hyperlipidemia type: mixed hyperlipidemia Qualified Code(s): E78.2 - Mixed hyperlipidemia (4) Hypothyroidism Hypothyroidism type: acquired Qualified Code(s): E03.9 - Hypothyroidism, unspecified (5) Anemia Anemia type: unspecified type Qualified Code(s): D64.9 - Anemia, unspecified (6) CHF (congestive heart failure) Heart failure chronicity: acute Heart failure type: unspecified Qualified Code(s): I50.9 - Heart failure, unspecified (7) Asthma Asthma severity: unspecified severity Asthma persistence: unspecified Asthma complication type: uncomplicated Qualified Code(s): J45.909 - Unspecified asthma, uncomplicated
[2019-08-21] MEDS: HydrALAZINE HCL 20 MG/ML VIAL IV PRN ×2 (04:34→21:49)
[2019-08-21 06:22] LABS: Hematocrit (blood only) 29.4 % (37-47); Hemoglobin 9.2 g/dL (12.0-16.0); Mean Corpuscular Hemoglobin 29.9 pg (25-34); Mean Corpuscular Hgb Conc 31.3 g/dL (32-36); Mean Corpuscular Volume 95.5 fL (80-100); Mean Platelet Volume 8.5 fL (7.4-10.4); Platelet Count 171 K/uL (130-400); RDW Coefficient of Variation 16.7 % (11.5-14.5); Red Blood Count 3.08 M/uL (4.2-5.4); White Blood Count 6.38 K/uL (4.8-10.8)
[2019-08-21] MEDS: LEVOTHYROXINE SODIUM 50 MCG TABLET PO SCH (06:31)
[2019-08-21 07:01] LABS: Albumin Level 2.4 gm/dl (3.4-5.0); BUN Creatinine Ratio 11.1 (10-20); Calcium 7.6 mg/dl (8.5-10.1); Creatinine Clr Calc Pharmacy 22.7 ml/min; Est GFR (African American) 35.6; Est GFR (Non-African American) 30.8; Phosphorus 1.7 mg/dl (2.5-4.9); Potassium 3.2 mmol/L (3.5-5.1)
[2019-08-21] MEDS: AMLODIPINE BESYLATE 5 MG TAB PO SCH (07:48)
[2019-08-21] MEDS: FLUTICASONE/VILANTEROL INHALER INH SCH (07:48)
[2019-08-21] MEDS: LACTOBACILLUS ACIDOPHILUS (FLORANEX) TAB PO SCH (07:48)
[2019-08-21] MEDS: METOPROLOL SUCC 25MG EXT REL TAB PO SCH (07:48)
[2019-08-21] MEDS: CLOPIDOGREL BISULFATE 75 MG TAB PO SCH (07:48)
[2019-08-21] MEDS: AMIODARONE 200 MG TAB PO SCH (07:48)
[2019-08-21] MEDS: POTASSIUM CHLORIDE 20 MEQ TABCR PO SCH (07:49)
[2019-08-21] MEDS: HEPARIN SOD 5,000 UNIT/0.5 ML VIAL SQ SCH ×2 (07:49→20:25)
[2019-08-21] MEDS: ERTAPENEM SODIUM 500 MG in SODIUM CHLORIDE 0.9% 50 ML IV SCH (08:27)
[2019-08-21] MEDS ORDERED: POTASSIUM PHOS 3 MMOL/1 ML INFUSION IV STA (08:36)
[2019-08-21] MEDS ORDERED: POTASSIUM PHOSPHATE 40 MMOL in SODIUM CHLORIDE 0.9% 1000ML 1,000 ML IV ONE (09:00)
--- NOTE | 2019-08-21 10:40 | Nephrology Progress Note ---
Date of Service August 21, 2019 Assessment & Plan (1) ROXANNA (acute kidney injury): ROXANNA due to dehydration in the setting of hypercalcemia. Patient is recovering from major abdominal surgery. Upon returning home she has had poor oral intake/hydration but remained on Ca+vit D supplement. Renal US was negative for hydronephrosis. Urinalysis is negative for protein or blood. Urine sediment is negative for cellular casts. Renal function continues to improve. Decent UO. Ca improved. --start on potassium phosphate IV, aim to keep potassium around 4 --Renal panel daily, expect renal function to continue to improve --keep off of Ca and vit D, ok to take multivitamin --Pts PCP already is planning for Urology evaluation of L renal mass/cyst as an outpt when pt clinically improve. Will sign off, however, will be available for any concern or questions. (2) Hypercalcemia: Likely related to Ca + vitamin D supplement -- Ca has corrected off supplements and with IV hydration -- Continue to hold Ca + vitamin D -- PTH appropriately low. PTHrp is pending. Vitamin D level - wnl (3) Renal mass: Jesus Oshea Was seen and examined with her daughter Gaby and son-in-law yue at bedside. She is more tired and lethargic this morning however denies any specific symptoms. No shortness of breath, chest pain, nausea. Urine output h as been decent, volume status acceptable. Renal function continues to improve, creatinine down to 1.5 however, has several electrolyte abnormality. Review of Systems Review of Systems: All systems reviewed & are unremarkable except as noted in HPI & below Physical Exam Constitutional: + ill appearing; no acute distress Respiratory: normal respiratory effort Auscultation: + crackles (b/l base) Cardiovascular: RRR, no murmur, no edema Neurologic: awake; not confused Psychiatric: A+Ox3, euthymic affect Results & Data Vital Signs (Past 12 Hours) Vital Signs Temp Pulse Pulse Resp BP BP Pulse Ox 08/21/19 08:09 36.4 C L 67 18 150/69 H 98 08/21/19 04:33 60 174/75 H 08/21/19 04:05 36.5 C 61 20 174/67 H 190/71 H 98 08/21/19 00:46 61 08/20/19 23:35 36.4 C L 61 16 152/67 H 95 PG Care Time/CCT Total # of Minutes Spent Total Time Spent with Patient: Total time spent is greater than 50% in coordination of care (as documented) at patient's floor/unit and/or counseling patient:
--- NOTE | 2019-08-21 13:44 | Hospitalist Progress Note ---
Date of Service August 21, 2019 Assessment & Plan (1) Hypercalcemia: resolved calcium stable for a few days no evidence of hyperparathyroidism. nephrology is concerned that Ca + Vit D supplement caused this; both on hold another possibility is that the left renal mass is cancer and that there could be bony mets from such leading to high calcium but less likely (2) UTI (urinary tract infection): ?symptomatic? vs asymptomatic she was quite ill upon presentation - not sure if this contributed to admission symptoms or not urine culture growing E coli and Klebsiella will stop Ertapenem, start on Cefdinir (3) ROXANNA (acute kidney injury): IMPROVING. patient was volume contracted at admission and thus this could have been a pre- renal event. alternatively the high calcium may have caused the injury. no evidence of obstruction on renal u/s. has eosinophils on CBC w/ diff -- urine for eosinophils to r/o interstitial nephritis sent however no recent rash, new meds, etc (certainly could have had an abx at [facility] that caused AIN) Cr down to 1.5, nearly resolved, making adequate urine, K low at 3.2 stopped IV fluids / appreciate nephrology input (4) PAF (paroxysmal atrial fibrillation): Cont amiodarone to maintain NSR. cont toprol xl daily. deemed a poor anticoagulation candidate in the past. (5) CAD (coronary artery disease): Stable. Cont BB, statin, plavix. (6) Hyperlipidemia: Continue atorvastatin 20 mg p.o. daily (7) Hypothyroidism: Patient with markedly elevated TSH = 23 At a previous TSH level of 18 her synthroid had been increased from 25 to 37.5 by her PCP increased her synthroid again to 50mcg daily this admission. repeat TSH in 6 weeks. (8) Obstructive sleep apnea, adult: CPAP (9) Chronic cerebral ischemia: Patient had a stroke in 2001 and has residual left-sided weakness of the upper and lower extremity Also with TIA during a hospital stay in 2019. Continue Plavix 75 mg p.o. daily for secondary prevention Continue atorvastatin 20 mg p.o. daily (10) Anemia: Hb stable at 9 today (11) Abscess of abdominal wall: Patient had intra-abdominal hematoma in 2019 that became secondarily infected and ultimately spontaneously ruptured. She then had I/D with washout by Dr Pablo - February 2019. Had wound vac after that and had such in place for months. 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 Thus, she had exploratory laparotomy with lysis of adhesions, resection of p ortion of transverse colon that contained a colo-cutaneous fistula, resection of overlying hernia mesh from previous hernia repair. This was done at [facility] on 07/17/2019. [place] [facility] [place]. Cont wound vac. No evidence of complicating infection at this time. Appreciate wound care team assistance, they changed wound vac on 08/20 (12) CHF (congestive heart failure): chronic diastolic CHF. holding lasix due to ROXANNA. remains compensated. likely resume Lasix after discharge (13) Asthma: Chronic. Stable. Cont breo and albuterol prn (14) Candidal intertrigo: Continue nystatin (15) Metabolic encephalopathy: 2nd to hypercalcemia. resolved. fully a/o x 3 today. (16) DVT prophylaxis: heparin 5000 BID cont PT, OT; SNF for rehab recommended by both updated family at the bedside anticipate d/c in 1-2 days, will look into SNF (17) Hypokalemia: 3.2 IV replacement ordered Subjective patient feeling stronger today, she was able to take a few steps into the hallway with therapy she was quite pleased with this, but admitted that it made her tired eating better each day no chest pain, no dyspnea, no cough, no fever/chills reviewed labs, Cr improved to 1.5, Hb stable at 9.2 urine culture with E coli and Klebsiella, will change to Cefdinir discussed with Dr. Irving, appreciate her input updated daughter and son in law at the bedside Review of Systems Review of Systems: All systems reviewed & are unremarkable except as noted in HPI & below Physical Exam Constitutional: WD/WN, vitals as above + thin and + frail appearing Eyes: PERRL, conjunctivae normal, anicteric sclerae ENMT: external ear and nose normal, oropharynx normal Neck: trachea midline, no thyromegaly Respiratory: normal respiratory effort, lungs clear to auscultation (decreased in the bases) Cardiovascular: RRR, no murmur, no edema Gastrointestinal (Abdomen): normal bowel sounds, soft, nontender, no hepatosplenomegaly Musculoskeletal: Head/Neck/Chest: normocephalic and head atraumatic Extremities: + abnormal strength (generalized weakness) Skin: no rashes, warm and dry Neurologic: patellar DTR's 2+ bilat, sensation intact and PERRL, EOMI, accommodation nl, no face palsy, no dysarthria Psychiatric: A+Ox3, euthymic affect Lymphatic: no cervical or axillary lymphadenopathy Results & Data Vital Signs (Past 12 Hours) Vital Signs Temp Pulse Resp BP BP Pulse Ox 08/21/19 12:21 36.3 C L 67 19 109/63 99 08/21/19 08:09 36.4 C L 67 18 150/69 H 98 08/21/19 04:33 60 174/75 H 08/21/19 04:05 36.5 C 61 20 174/67 H 190/71 H 98 Laboratory Results Laboratory Results - last 24 hr 08/21/19 08/21/19 06:10 06:10 WBC 6.38 RBC 3.08 L Hgb 9.2 L Hct 29.4 L MCV 95.5 MCH 29.9 MCHC 31.3 L RDW Std Deviation 58.0 H RDW Coeff of Elliot 16.7 H Plt Count 171 MPV 8.5 Sodium 144 Potassium 3.2 L Chloride 117 H Carbon Dioxide 19 L Anion Gap 8.0 BUN 17 Creatinine 1.51 H Est Cr Clr Drug Dosing 22.7 Est GFR ( Amer) 35.6 Est GFR (Non-Af Amer) 30.8 BUN/Creatinine Ratio 11.1 Glucose 83 Calcium 7.6 L Phosphorus 1.7 L Albumin 2.4 L Medications Administered Current Inpatient Medications Acetaminophen (Tylenol) 500 mg PO Q4H PRN PRN Reason: pain/fever Albuterol (Ventolin Hfa) 2 puffs INH QID PRN PRN Reason: Shortness Of Breath Or Wheezing Stop: 09/14/19 13:15 Last Admin: 08/20/19 21:27 Dose: 2 puffs Documented by: Amiodarone HCl (Cordarone) [facility] [place] Stop: 09/15/19 08:59 Last Admin: 08/21/19 07:48 Dose: 200 mg Documented by: Amlodipine Besylate (Norvasc) 10 mg [facility] [place] Stop: 09/19/19 08:59 Last Admin: 08/21/19 07:48 Dose: 10 mg Documented by: Atorvastatin Calcium (Lipitor) 20 mg PO QPM [facility] Stop: 09/14/19 20:59 Last Admin: 08/20/19 20:44 Dose: 20 mg Documented by: Clopidogrel Bisulfate (Plavix) 75 mg PO QAM [facility] Stop: 09/14/19 13:29 Last Admin: 08/21/19 07:48 Dose: 75 mg Documented by: Diclofenac Sodium (Voltaren 1% Top) 2 gm EXT BID [facility] Stop: 09/14/19 20:59 Last Admin: 08/16/19 20:54 Dose: 2 gm Documented by: Docusate Sodium (Colace) 100 mg PO BID PRN PRN Reason: Constipation Stop: 09/14/19 13:15 Fluticasone/Vilanterol (Breo Ellipta) 1 puffs INH DAILY [facility] Stop: 09/14/19 08:59 Last Admin: 08/21/19 07:48 Dose: 1 puffs Documented by: Furosemide (Lasix) 40 mg PO QAM [facility] Stop: 09/14/19 13:29 Last Admin: 08/16/19 08:55 Dose: 40 mg Documented by: Heparin Sodium (Porcine) (Heparin Sodium (Porcine)) 5,000 units SQ Q12H [facility] Stop: 09/16/19 09:59 Last Admin: 08/21/19 07:49 Dose: 5,000 units Documented by: Hydralazine HCl (Hydralazine Hcl) 5 mg IV Q4H PRN PRN Reason: Hypertension Stop: 09/15/19 04:23 Last Admin: 08/21/19 04:34 Dose: 5 mg Documented by: Ertapenem 500 mg/ Sodium (Chloride) 55 mls @ 100 mls/hr IV Q24H [facility]; Protocol Stop: 08/23/19 08:59 Last Infusion: 08/21/19 08:58 Dose: Infused Documented by: Potassium Phosphate 40 mmol/ (Sodium Chloride) 1,013.3333 mls @ 100 mls/hr IV ONE ONE Stop: 08/21/19 19:07 Last Admin: 08/21/19 08:53 Dose: 100 mls/hr Documented by: Lactobacillus Acidophilus (Floranex) 4 tab PO DAILY [facility] Stop: 09/14/19 13:29 Last Admin: 08/21/19 07:48 Dose: 4 tab Documented by: Levothyroxine Sodium (Synthroid) 50 mcg PO DAILYBB [facility] Stop: 09/15/19 08:59 Last Admin: 08/21/19 06:31 Dose: 50 mcg Documented by: Metoprolol Succinate (Toprol Xl) 25 mg PO DAILY [facility] Stop: 09/15/19 08:59 Last Admin: 08/21/19 07:48 Dose: 25 mg Documented by: Nystatin (Mycostatin) 1 appln EXT DAILY PRN PRN Reason: Unknown Stop: 09/14/19 13:15 Potassium Chloride (Klor-Con M20) 20 meq PO DAILY [facility] Stop: 09/18/19 08:59 Last Admin: 08/21/19 07:49 Dose: 20 meq Documented by: PG Care Time/CCT Total # of Minutes Spent Total Time Spent with Patient: Total time spent is greater than 50% in coordination of care (as documented) at patient's floor/unit and/or counseling patient: (1) UTI (urinary tract infection) Hematuria presence: without hematuria Urinary tract infection type: acute cystitis Qualified Code(s): N30.00 - Acute cystitis without hematuria (2) CAD (coronary artery disease) Associated angina: without angina Coronary Disease-Associated Artery/Lesion type: [place] artery [place] vs. transplanted heart: [place] heart Qualified Code(s): I25.10 - Atherosclerotic heart disease of [place] coronary artery without angina pectoris (3) CHF (congestive heart failure) Heart failure chronicity: acute Heart failure type: unspecified Qualified Code(s): I50.9 - Heart failure, unspecified (4) Anemia Anemia type: unspecified type Qualified Code(s): D64.9 - Anemia, unspecified (5) Hyperlipidemia Hyperlipidemia type: mixed hyperlipidemia Qualified Code(s): E78.2 - Mixed hyperlipidemia (6) Hypothyroidism Hypothyroidism type: acquired Qualified Code(s): E03.9 - Hypothyroidism, unspecified (7) Asthma Asthma complication type: uncomplicated Asthma persistence: unspecified Asthma severity: unspecified severity Qualified Code(s): J45.909 - Unspecified asthma, uncomplicated
[2019-08-21] MEDS: ATORVASTATIN 20 MG TAB PO SCH (20:25)
[2019-08-22] MEDS: LEVOTHYROXINE SODIUM 50 MCG TABLET PO SCH (05:51)
[2019-08-22 06:49] LABS: Albumin Level 2.3 gm/dl (3.4-5.0); BUN Creatinine Ratio 11.7 (10-20); Calcium 7.1 mg/dl (8.5-10.1); Creatinine Clr Calc Pharmacy 27.2 ml/min; Est GFR (African American) 44.4; Est GFR (Non-African American) 38.3; Potassium 3.6 mmol/L (3.5-5.1)
[2019-08-22 06:50] LABS: Phosphorus 3.1 mg/dl (2.5-4.9)
[2019-08-22] MEDS: METOPROLOL SUCC 25MG EXT REL TAB PO SCH (07:31)
[2019-08-22] MEDS: CEFDINIR 300 MG CAP PO SCH (07:31)
[2019-08-22] MEDS: LACTOBACILLUS ACIDOPHILUS (FLORANEX) TAB PO SCH (07:31)
[2019-08-22] MEDS: CLOPIDOGREL BISULFATE 75 MG TAB PO SCH (07:31)
[2019-08-22] MEDS: FLUTICASONE/VILANTEROL INHALER INH SCH (07:31)
[2019-08-22] MEDS: HEPARIN SOD 5,000 UNIT/0.5 ML VIAL SQ SCH ×2 (07:32→21:26)
[2019-08-22] MEDS: AMIODARONE 200 MG TAB PO SCH (07:32)
[2019-08-22] MEDS: AMLODIPINE BESYLATE 5 MG TAB PO SCH (07:32)
[2019-08-22] MEDS: POTASSIUM CHLORIDE 20 MEQ TABCR PO SCH (07:32)
--- NOTE | 2019-08-22 18:37 | Hospitalist Progress Note ---
Date of Service August 22, 2019 Assessment & Plan (1) Hypercalcemia: resolved calcium stable for a few days no evidence of hyperparathyroidism. Ca is 7.1 but corrected for albumin of 2.3 it is above 8 nephrology is concerned that Ca + Vit D supplement caused this; both on hold another possibility is that the left renal mass is cancer and that there could be bony mets from such leading to high calcium but less likely (2) UTI (urinary tract infection): ?symptomatic? vs asymptomatic she was quite ill upon presentation - not sure if this contributed to admission symptoms or not urine culture growing E coli and Klebsiella will stop Ertapenem, start on Cefdinir complete 10 days total including what she received here last day would be 08/25/19 (3) ROXANNA (acute kidney injury): IMPROVING. patient was volume contracted at admission and thus this could have been a pre- renal event. alternatively the high calcium may have caused the injury. no evidence of obstruction on renal u/s. has eosinophils on CBC w/ diff -- urine for eosinophils to r/o interstitial nephritis sent however no recent rash, new meds, etc (certainly could have had an abx at [facility] that caused AIN) Cr down to 1.2, nearly resolved, making adequate urine, K normal today stopped IV fluids 1/ appreciate nephrology input, they have signed off (4) PAF (paroxysmal atrial fibrillation): Cont amiodarone to maintain NSR. cont toprol xl daily. deemed a poor anticoagulation candidate in the past. (5) CAD (coronary artery disease): Stable. Cont BB, statin, plavix. (6) Hyperlipidemia: Continue atorvastatin 20 mg p.o. daily (7) Hypothyroidism: Patient with markedly elevated TSH = 23 At a previous TSH level of 18 her synthroid had been increased from 25 to 37.5 by her PCP increased her synthroid again to 50mcg daily this admission. repeat TSH in 6 weeks. (8) Obstructive sleep apnea, adult: CPAP (9) Chronic cerebral ischemia: Patient had a stroke in 2001 and has residual left-sided weakness of the upper and lower extremity Also with TIA during a hospital stay in 2019. Continue Plavix 75 mg p.o. daily for secondary prevention Continue atorvastatin 20 mg p.o. daily (10) Anemia: Hb stable at 9 when last checked (11) Abscess of abdominal wall: Patient had intra-abdominal hematoma in 2019 that became secondarily infected and ultimately spontaneously ruptured. She then had I/D with washout by Dr Pbalo - February 2019. Had wound vac after that and had such in place for months. 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 Thus, she had exploratory laparotomy with lysis of adhesions, resection of portion of transverse colon that contained a colo-cutaneous fistula, resection of overlying hernia mesh from previous hernia repair. This was done at [facility] on 07/17/2019. [place] [facility] [place] [address]. Cont wound vac. No evidence of complicating infection at this time. Appreciate wound care team assistance, they changed wound vac as needed will follow up with surgeon at [facility] soon (12) CHF (congestive heart failure): chronic diastolic CHF. holding lasix due to ROXANNA. remains compensated. likely resume Lasix after discharge (13) Asthma: Chronic. Stable. Cont breo and albuterol prn (14) Candidal intertrigo: Continue nystatin (15) Metabolic encephalopathy: 2nd to hypercalcemia. resolved. fully a/o x 3 today. (16) DVT prophylaxis: heparin 5000 BID cont PT, OT; SNF for rehab recommended by both updated family at the bedside anticipate d/c tomorrow to [facility] (17) Hypokalemia: 3.2 IV replacement ordered Subjective patient continues to get stronger, ambulating, sitting OOB in a chair labs continue to improve as well, Cr down to 1.2, electrolytes stable no fever, no chills, no chest pain/pressure, no dyspnea, no cough updated family at the bedside spoke with CM, plan for d/c to [facility] tomorrow for rehab, ultimate goal is to return home Review of Systems Review of Systems: All systems reviewed & are unremarkable except as noted in HPI & below Physical Exam Constitutional: WD/WN, vitals as above + thin and + frail appearing Eyes: PERRL, conjunctivae normal, anicteric sclerae ENMT: external ear and nose normal, oropharynx normal Neck: trachea midline, no thyromegaly Respiratory: normal respiratory effort, lungs clear to auscultation (decreased in the bases) Cardiovascular: RRR, no murmur, no edema Gastrointestinal (Abdomen): normal bowel sounds, soft, nontender, no hepatosplenomegaly Musculoskeletal: Head/Neck/Chest: normocephalic and head atraumatic Extremities: + abnormal strength (generalized weakness) Skin: no rashes, warm and dry Neurologic: patellar DTR's 2+ bilat, sensation intact and PERRL, EOMI, accommodation nl, no face palsy, no dysarthria Psychiatric: A+Ox3, euthymic affect Lymphatic: no cervical or axillary lymphadenopathy Results & Data Vital Signs (Past 12 Hours) Vital Signs Temp Pulse Resp BP Pulse Ox 08/22/19 15:18 36.3 C L 61 16 144/72 H 97 08/22/19 07:34 36.4 C L 89 16 151/63 H 94 Laboratory Results Laboratory Results - last 24 hr 08/17/19 08/22/19 07:11 06:01 Sodium 144 Potassium 3.6 Chloride 121 H Carbon Dioxide 20 L Anion Gap 3.0 BUN 15 Creatinine 1.26 H Est Cr Clr Drug Dosing 27.2 Est GFR ( Amer) 44.4 Est GFR (Non-Af Amer) 38.3 BUN/Creatinine Ratio 11.7 Glucose 78 Calcium 7.1 L Phosphorus 3.1 D Albumin 2.3 L PTH Related Protein 19 Medications Administered Current Inpatient Medications Acetaminophen (Tylenol) 500 mg PO Q4H PRN PRN Reason: pain/fever Albuterol (Ventolin Hfa) 2 puffs INH QID PRN PRN Reason: Shortness Of Breath Or Wheezing Stop: 09/14/19 13:15 Last Admin: 08/20/19 21:27 Dose: 2 puffs Documented by: Amiodarone HCl (Cordarone) [facility] [place]: 09/15/19 08:59 Last Admin: 08/22/19 07:32 Dose: 200 mg Documented by: Amlodipine Besylate (Norvasc) [facility] [place]: 09/19/19 08:59 Last Admin: 08/22/19 07:32 Dose: 10 mg Documented by: Atorvastatin Calcium (Lipitor) 20 mg PO QPM [facility] Stop: 09/14/19 20:59 Last Admin: 08/21/19 20:25 Dose: 20 mg Documented by: Cefdinir (Omnicef Cap) 300 [facility] [place]: 09/01/19 08:59 Last Admin: 08/22/19 07:31 Dose: 300 mg Documented by: Clopidogrel Bisulfate (Plavix) 75 mg PO QAM [facility] Stop: 09/14/19 13:29 Last Admin: 08/22/19 07:31 Dose: 75 mg Documented by: Diclofenac Sodium (Voltaren 1% Top) 2 gm EXT BID [facility] Stop: 09/14/19 20:59 Last Admin: 08/16/19 20:54 Dose: 2 gm Documented by: Docusate Sodium (Colace) 100 mg PO BID PRN PRN Reason: Constipation Stop: 09/14/19 13:15 Fluticasone/Vilanterol (Breo Ellipta) 1 puffs INH DAILY [facility] Stop: 09/14/19 08:59 Last Admin: 08/22/19 07:31 Dose: 1 puffs Documented by: Furosemide (Lasix) 40 mg PO QAM [facility] Stop: 09/14/19 13:29 Last Admin: 08/16/19 08:55 Dose: 40 mg Documented by: Heparin Sodium (Porcine) (Heparin Sodium (Porcine)) 5,000 units SQ Q12H [facility] Stop: 09/16/19 09:59 Last Admin: 08/22/19 07:32 Dose: 5,000 units Documented by: Hydralazine HCl (Hydralazine Hcl) 5 mg IV Q4H PRN PRN Reason: Hypertension Stop: 09/15/19 04:23 Last Admin: 08/21/19 21:49 Dose: 5 mg Documented by: Lactobacillus Acidophilus (Floranex) 4 tab PO DAILY [facility] Stop: 09/14/19 13:29 Last Admin: 08/22/19 07:31 Dose: 4 tab Documented by: Levothyroxine Sodium (Synthroid) 50 mcg PO DAILYBB [facility] Stop: 09/15/19 08:59 Last Admin: 08/22/19 05:51 Dose: 50 mcg Documented by: Metoprolol Succinate (Toprol Xl) 25 mg PO DAILY [facility] Stop: 09/15/19 08:59 Last Admin: 08/22/19 07:31 Dose: 25 mg Documented by: Nystatin (Mycostatin) 1 appln EXT DAILY PRN PRN Reason: Unknown Stop: 09/14/19 13:15 Potassium Chloride (Klor-Con M20) 20 meq PO DAILY [facility] Stop: 09/18/19 08:59 Last Admin: 08/22/19 07:32 Dose: 20 meq Documented by: PG Care Time/CCT Total # of Minutes Spent Total Time Spent with Patient: Total time spent is greater than 50% in coordination of care (as documented) at patient's floor/unit and/or counseling patient: (1) UTI (urinary tract infection) Urinary tract infection type: acute cystitis Hematuria presence: without hematuria Qualified Code(s): N30.00 - Acute cystitis without hematuria (2) CAD (coronary artery disease) Coronary Disease-Associated Artery/Lesion type: [place] artery [place] vs. transplanted heart: [place] heart Associated angina: without angina Qualified Code(s): I25.10 - Atherosclerotic heart disease of [place] coronary artery without angina pectoris (3) Hyperlipidemia Hyperlipidemia type: mixed hyperlipidemia Qualified Code(s): E78.2 - Mixed hyperlipidemia (4) Hypothyroidism Hypothyroidism type: acquired Qualified Code(s): E03.9 - Hypothyroidism, unspecified (5) Anemia Anemia type: unspecified type Qualified Code(s): D64.9 - Anemia, unspecified (6) CHF (congestive heart failure) Heart failure chronicity: acute Heart failure type: unspecified Qualified Code(s): I50.9 - Heart failure, unspecified (7) Asthma Asthma severity: unspecified severity Asthma persistence: unspecified Asthma complication type: uncomplicated Qualified Code(s): J45.909 - Unspecified asthma, uncomplicated
[2019-08-22] MEDS: ATORVASTATIN 20 MG TAB PO SCH (21:26)
[2019-08-23] MEDS: LEVOTHYROXINE SODIUM 50 MCG TABLET PO SCH (06:03)
[2019-08-23 06:52] LABS: Albumin Level 2.4 gm/dl (3.4-5.0); BUN Creatinine Ratio 11.4 (10-20); Calcium 7.6 mg/dl (8.5-10.1); Creatinine Clr Calc Pharmacy 27.8 ml/min; Est GFR (African American) 45.2; Potassium 3.7 mmol/L (3.5-5.1)
[2019-08-23 06:53] LABS: Phosphorus 2.7 mg/dl (2.5-4.9)
[2019-08-23] MEDS: FLUTICASONE/VILANTEROL INHALER INH SCH (08:19)
[2019-08-23] MEDS: AMIODARONE 200 MG TAB PO SCH (08:20)
[2019-08-23] MEDS: CEFDINIR 300 MG CAP PO SCH (08:20)
[2019-08-23] MEDS: POTASSIUM CHLORIDE 20 MEQ TABCR PO SCH (08:20)
[2019-08-23] MEDS: CLOPIDOGREL BISULFATE 75 MG TAB PO SCH (08:21)
[2019-08-23] MEDS: LACTOBACILLUS ACIDOPHILUS (FLORANEX) TAB PO SCH (08:21)
[2019-08-23] MEDS: AMLODIPINE BESYLATE 5 MG TAB PO SCH (08:22)
[2019-08-23] MEDS: METOPROLOL SUCC 25MG EXT REL TAB PO SCH (08:22)
[2019-08-23] MEDS: HEPARIN SOD 5,000 UNIT/0.5 ML VIAL SQ SCH (08:22)
--- NOTE | 2019-08-23 16:29 | Discharge Summary ---
Date of Service August 23, 2019 Admission HPI Per Admitting Provider Dorie Parra is an 88 yo female with multiple medical problems presenting with confusion and lethargy. Majority of history obtained from daughter, Gaby. She reports that the patient was slightly confused yesterday. Her daughter visited in the afternoon and patient was very sleepy and seemed that she was dehydrated. Her daughter gave her something to eat and tried to make her drink and feels that her mental status improved after approximately 1 hour. Patient was again confused and sleepy this morning as well as diffusely weak. She was unable to get off the commode and required assistance. She was also complaining of some mild nausea. Patient found to be hypercalcemic in the ER with calcium = 12.8. Also with ROXANNA, BUN = 35 and creatinine = 3.26. Recent hospitalization at [facility] for management of abdominal wound. She was discharged to home on 08/03. Overall she has been doing quite well since her return home. She had a follow-up appoint with her PCP on 08/09/2019. ER course: Normal saline x1 L Principal Diagnosis Acute kidney injury on CKD stage III Discharge Exam Constitutional WD/WN, vitals as above + thin and + frail appearing Eyes PERRL, conjunctivae normal, anicteric sclerae ENMT external ear and nose normal, oropharynx normal Neck trachea midline, no thyromegaly Respiratory normal respiratory effort, lungs clear to auscultation (decreased in the bases) Cardiovascular RRR, no murmur, no edema Gastrointestinal (Abdomen) normal bowel sounds, soft, nontender, no hepatosplenomegaly Musculoskeletal Head/Neck/Chest: normocephalic and head atraumatic Extremities: + abnormal strength (generalized weakness) Skin no rashes, warm and dry Neurologic patellar DTR's 2+ bilat, sensation intact and PERRL, EOMI, accommodation nl, no face palsy, no dysarthria Psychiatric A+Ox3, euthymic affect Lymphatic no cervical or axillary lymphadenopathy Discharge Data Allergies Allergy/AdvReac Type Severity Reaction Status Date / Time oxycodone Allergy Mild RASH Verified 08/15/19 10:29 alendronate sodium Allergy Unknown [facility] LIST Verified 08/15/19 10:29 Bactrim Allergy Unknown [facility] LIST Verified 02/07/18 04:16 cefuroxime Allergy Unknown UNKNOWN ON Verified 08/15/19 10:29 LIST Cipro Allergy Unknown Unknown Verified 02/07/18 21:42 ciprofloxacin Allergy Unknown UNKNOWN ON Verified 08/15/19 10:29 LIST codeine Allergy Unknown UNKNOWN ON Verified 08/15/19 10:29 LIST gabapentin Allergy Unknown UNKNOWN ON Verified 08/15/19 10:29 LIST meperidine Allergy Unknown UNKNOWN ON Verified 08/15/19 10:29 LIST piperacillin [From Zosyn] Allergy Unknown Unknown Unverified 08/15/19 10:29 propoxyphene Allergy Unknown UNKNOWN ON Verified 08/15/19 10:29 LIST Sulfa (Sulfonamide Allergy Unknown UNKNOWN ON Verified 08/15/19 10:29 Antibiotics) LIST sulfamethoxazole Allergy Unknown [facility] LIST Verified 08/15/19 10:29 tazobactam [From Zosyn] Allergy Unknown Unknown Unverified 08/15/19 10:29 trim[facility]oprim [facility] 08/15/19 10:29 amphetamine AdvReac Severe UNKNOWN ON Verified 08/15/19 10:29 LIST dextroamphetamine AdvReac Severe UNKNOWN ON Verified 08/15/19 10:29 LIST hydrochlorothiazide AdvReac Intermediate GI DISTRESS Verified 08/15/19 10:29 methyldopa AdvReac Intermediate GI DISTRESS Verified 08/15/19 10:29 fluoxetine [From Prozac] AdvReac Unknown Hallucinati Unverified 08/15/19 10:29 ng Consultations 08/15/19 10:57 ED Decision to Admit Stat 08/17/19 10:10 Consult Nephrology Routine Ordered Studies 08/16/19 13:16 US renal/blad retro comp Routine Hospital Course (1) Hypercalcemia: resolved calcium stable for almost a week no evidence of hyperparathyroidism. Ca is 7.1 but corrected for albumin of 2.3 it is above 8 nephrology is concerned that Ca + Vit D supplement caused this; no further Calcium or vitamin D supplements on discharge (2) UTI (urinary tract infection): ?symptomatic? vs asymptomatic she was quite ill upon presentation - not sure if this contributed to admission symptoms or not urine culture growing E coli and Klebsiella will stop Ertapenem, start on Cefdinir complete 10 days total including what she received here last day would be 08/25/19 (3) ROXANNA (acute kidney injury): RESOLVED patient was volume contracted at admission and thus likely cause was prerenal alternatively the high calcium may have caused the injury. no evidence of obstruction on renal u/s. has eosinophils on CBC w/ diff -- urine for eosinophils to r/o interstitial nephritis sent however no recent rash, new meds, etc (certainly could have had an abx at [facility] that caused AIN) Cr down to 1.2, making adequate urine, K normal stopped IV fluids 08/20 appreciate nephrology input, they have signed off Lasix held during admission, would let patient's weight be the guide to resuming if weight start to goes up by 2 lbs then would resume Lasix at 20mg a day (4) PAF (paroxysmal atrial fibrillation): Cont amiodarone to maintain NSR. cont toprol xl daily. deemed a poor anticoagulation candidate in the past. (5) CAD (coronary artery disease): Stable. Cont BB, statin, plavix. (6) Hyperlipidemia: Continue atorvastatin 20 mg p.o. daily (7) Hypothyroidism: Patient with markedly elevated TSH = 23 At a previous TSH level of 18 her synthroid had been increased from 25 to 37.5 by her PCP increased her synthroid again to 50mcg daily this admission. repeat TSH in 6 weeks (8) Obstructive sleep apnea, adult: CPAP (9) Chronic cerebral ischemia: Patient had a stroke in 2001 and has residual left-sided weakness of the upper and lower extremity Also with TIA during a hospital stay in 2019. Continue Plavix 75 mg p.o. daily for secondary prevention Continue atorvastatin 20 mg p.o. daily (10) Anemia: Hb stable at 9 when last checked (11) Abscess of abdominal wall: Patient had intra-abdominal hematoma in 2018 that became secondarily infected and ultimately spontaneously ruptured. She then had I/D with washout by Dr Pablo - February 2019. Had wound vac after that and had such in place for months. 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 Thus, she had exploratory laparotomy with lysis of adhesions, resection of portion of transverse colon that contained a colo-cutaneous fistula, resection of overlying hernia mesh from previous hernia repair. This was done at [facility] on 07/17/2019. D/c from [facility] on 08/03/[address]. Cont wound vac. No evidence of complicating infection at this time. Appreciate wound care team assistance, they changed wound vac as needed will follow up with surgeon at [place] day after discharge (12) CHF (congestive heart failure): chronic diastolic CHF. holding lasix due to ROXANNA. remains compensated. again, Lasix will be on hold, could have contributed to volume contraction and ROXANNA would resume Lasix if weight starts to trend up, 2-3 lbs from her baseline (13) Asthma: Chronic. Stable. Cont breo and albuterol prn (14) Candidal intertrigo: treated with nystatin (15) Metabolic encephalopathy: 2nd to hypercalcemia. resolved. fully a/o x 3 once the calcium was normalized (16) DVT prophylaxis: heparin 5000 BID cont PT, OT; SNF for rehab recommended by both updated family at the bedside will d/c to [facility] (17) Hypokalemia: resolved after IV replacement Total Time Total Time Spent Total Time Spent (In Minutes): 36 minutes Total Time Includes: Examination of the Patient, Discharge Planning, Medication Reconciliation and Other (discussion with multiple family members) Discharge Plan Discharge Items Patient Disposition: Transfer Longterm Fac Reason For Visit: HYPERCALCEMIA, ROXANNA Discharge Diagnosis: Acute kidney injury Hypercalcemia UTI Condition on Discharge: Good Goals: improve strength and mobility, enough to go back home follow up with surgery at [place] follow up with Dr. Horner continue speech therapy Activity: Resume your previous activity Bathing: Keep incision dry Non-emergency contact: Primary Care Provider, Surgeon and Office Nurse Practitioner Call non-emergency contact if: you have any medication questions, your symptoms worsen, your pain is unusual for you and you have a fever Follow-up/Referrals: Madyson Rodríguez MD [Primary Care Provider] - Diet: Low Sodium (2gm) Diet Comment: slippery diet, no straws Addtl Attending Provider Instructions: Medications: - CEFDINIR: taking 300mg daily for UTI, two more doses needed, 08/24 and 08/25 - LEVOTHYROXINE: TSH was elevated while here so dose was increased to 50mcg, continue this - Calcium and Vitamin D: stopped these medications due to high calcium level on admission - Lasix: holding due to acute kidney injury on admission, patient examines euvolemic, see below Hypercalcemia: completely resolved, due to dehydration and taking supplements nephrology recommends holding further supplementation for the time being Acute kidney injury: she was dehydrated and on Lasix Cr improved from 3.0 to 1.2, her baseline making adequate urine and electrolytes stable recommend repeat BMP next week at [facility] UTI: urine culture with Klebsiella and E coli sensitive to cephalosporins, complete Cefdinir Chronic diastolic heart failure previously on Lasix 40mg daily, presented with dehydration currently she examines euvolemic, weight is between 136-137 lbs here she has been off Lasix all week recommend DAILY weights at [facility], if her weight goes up by 2 lbs then resume Lasix would start with using Lasix 20mg daily follow up with Dr. Horner as scheduled next week follow low salt diet s/p abdominal abscess with chronic wound needs to follow up with surgeon at [place] tomorrow wound is healing well, continue wound vac and follow up with wound clinic next week Dysphagia: please continue with SPEECH therapy at [facility] and resume home speech therapy after discharge Pending Studies at Discharge: No Stand-Alone Forms: My [facility] Skilled Items Patient informed of condition?: Yes DNR: No Discharge Level of Care: Skilled Communicable Disease: No Discharge Prognosis: Stable Lines: None Urinary Catheter: No Medications and DC Order Prescriptions: New levothyroxine [Synthroid] 50 mcg Tablet 50 mcg PO DAILYBB 30 Days Qty: 30 RF: 2 Continued docusate sodium 100 mg capsule 100 mg PO BID PRN (Reason: Constipation) RF: 0 acetaminophen 500 mg capsule 500 mg PO Q4H MDD 6 tablets in 24 hours PRN (Reason: pain/fever) RF: 0 ferrous sulfate 325 mg (65 mg iron) tablet,delayed release (DR/EC) 325 mg PO BID Qty: 60 RF: 2 nystatin [Nystop] 100,000 unit/gram powder 1 applic topical DAILY PRN (Reason: Unknown) RF: 0 Adult Probiotic 3 billion cell capsule 3,000 mmu cells PO DAILY RF: 0 amiodarone 200 mg tablet 200 mg PO QAM Qty: 90 RF: 3 diclofenac sodium [Voltaren] 1 % gel 2 gm topical BID RF: 0 atorvastatin 20 mg tablet 20 mg PO QPM RF: 0 multivitamin Tablet 1 tab PO QAM RF: 0 albuterol sulfate [Ventolin HFA] 90 mcg/actuation Hfa Aerosol Inhaler 1 - 2 puff INHALATION QID PRN (Reason: Shortness Of Breath Or Wheezing) RF: 0 clopidogrel [Plavix] 75 mg tablet 75 mg PO QAM RF: 0 metoprolol succinate 25 mg tablet extended release 24 hr 25 mg PO DAILY RF: 0 amlodipine 10 mg tablet 10 mg PO DAILY RF: 0 potassium chloride 10 mEq tablet,ER particles/crystals 10 meq PO BID RF: 0 Changed magnesium oxide 400 mg (241.3 mg magnesium) Tablet 400 mg PO DAILY Qty: 60 RF: 0 Discontinued levothyroxine 75 mcg tablet 37.5 mcg PO DAILY Qty: 45 RF: 1 furosemide 40 mg tablet 40 mg PO QAM RF: 0 cholecalciferol (vitamin D3) [Vitamin D3] 2,000 unit Capsule 2,000 unit PO QAM RF: 0 calcium carbonate [Calcium 600] 600 mg calcium (1,500 mg) Tablet 600 mg PO DAILY RF: 0 Discharge Orders: Discharge Order (Routine); Ordered 08/23/19 Ordered By: Enmanuel Loomis Admission Data Admit Date/Time: 08/15/19 12:05 Attending Provider: Enmanuel Loomis Admit Provider: Maria T Collins Primary Care Provider: Madyson Rodríguez Other Providers: Alvin Cuevas ; Kelly Irving Other Interventions: Discharge Summary Assessment (RN) Last Done: 08/23/19 15:33 DC Date/Time DO NOT enter until pt leaves facility: 08/23/19 16:55
== END 2019-08-23 16:55 | DRG 640 ==
LOC: ED 09:43 → SUATTDRO 12:05 → 2N 12:05

== ENCOUNTER 2020-12-06 18:56 | Inpatient (IN) ==
[2020-12-06] MEDS ORDERED: SODIUM CHLORIDE 0.9% 1000ML 1,000 ML IV SCH (19:15)
[2020-12-06 19:27] LABS: Appearance Urine Cloudy (Clear); Bacteria Urine Automated 4+ (Negative); Bilirubin Urine Negative (Negative); Blood Urine 1+ (Negative); Color Urine Dark Yellow; Epithelial Cell Urine Auto 0-5 /lpf (0-5); Glucose Urine UA Negative (Negative); Ketones Urine Trace (Negative); Leukocyte Esterase Urine 2+ (Negative); Nitrite Urine Negative (Negative); Protein Urine 1+ (Negative); RBC Urine Automated 0-4 /hpf (0-4); Specific Gravity Urine 1.019 (1.000-1.030); Urobilinogen Urine Negative (Negative); WBC Urine Automated >30 /hpf (0-5); pH Urine 6.5 (4.5-7.5)
[2020-12-06 19:57] LABS: Basophils # (auto) 0.02 K/uL (0-0.2); Basophils % (auto) 0.2 %; Eosinophils # (auto) 0.14 K/uL (0-0.5); Eosinophils % (auto) 1.2 %; Hematocrit (blood only) 35.2 % (37-47); Hemoglobin 12.2 g/dL (12.0-16.0); Immature Granulocytes # (auto) 0.09 K/uL (0.00-0.02); Immature Granulocytes % (auto) 0.8 %; Lymphocytes # (auto) 0.66 K/uL (1.2-3.4); Lymphocytes % (auto) 5.8 %; Mean Corpuscular Hemoglobin 32.3 pg (25-34); Mean Corpuscular Hgb Conc 34.7 g/dL (32-36); Mean Corpuscular Volume 93.1 fL (80-100); Mean Platelet Volume 8.7 fL (7.4-10.4); Monocytes # (auto) 0.63 K/uL (0.11-0.59); Monocytes % (auto) 5.6 %; Neutrophils # (auto) 9.77 K/uL (1.4-6.5); Neutrophils % (auto) 86.4 %; Platelet Count 220 K/uL (130-400); RDW Coefficient of Variation 14.2 % (11.5-14.5); RDW Standard Deviation 48.1 fL (36.4-46.3); Red Blood Count 3.78 M/uL (4.2-5.4); White Blood Count 11.31 K/uL (4.8-10.8)
--- NOTE | 2020-12-06 20:10 | XRay Report ---
SINGLE VIEW CHEST CLINICAL HISTORY: Fall. Hip fracture. Preoperative examination. FINDINGS: An AP, portable, semierect chest radiograph is compared to study dated 10/23/2019 and correl ated with chest CT dated 10/02/2019. The examination is degraded by portable technique and patient rot ation. The heart is enlarged noting atherosclerotic calcification of the thoracic aorta. The pulmonar y vasculature is noncongested. Chronic additional thickening is similar to previous. There is chronic elevation of the right hemidiaphragm with bibasilar scarring/atelectasis. No airspace consolidation or large pleural effusion is identified. No pneumothorax is seen. The skeletal structures are osteope evelin. The bony thorax is grossly intact. IMPRESSION: Cardiomegaly and chronic parenchymal changes as above with no acute cardiopulmonary abnor mality identified. ACT 112: Negative or not required by law. Electronically signed by: Justin Flores M.D. 12/06/2020 8:09 PM
[2020-12-06 20:19] LABS: Albumin Globulin Ratio 0.9 (0.9-2); Albumin Level 3.3 gm/dl (3.4-5.0); BUN Creatinine Ratio 28.3 (10-20); Bilirubin,Total 0.3 mg/dl (0.2-1); Calcium 9.3 mg/dl (8.5-10.1); Est GFR (African American) 52.7; Est GFR (Non-African American) 45.5; Globulin 3.6 gm/dl (2.5-4.0); Potassium 4.3 mmol/L (3.5-5.1); Total Protein 6.9 gm/dl (6.4-8.2)
--- NOTE | 2020-12-06 20:30 | XRay Report ---
LEFT HIP 2 VIEWS CLINICAL HISTORY: Fall. Left hip injury. FINDINGS: AP and crosstable lateral portable views of the left hip are correlated with pelvic radiogr aph dated 05/18/2017. The skeletal structures are osteopenic. There is an impacted fracture through th e left femoral neck. There is superior displacement of the femoral shaft by approximately 4 cm. There is also displacement of the lesser trochanter. Overlying soft tissue edema is noted. The visualized left hemipelvis appears intact. Moderate to advanced degenerative joint space narrowing is noted in t he left hip. Sclerotic change is seen in the left sacroiliac joint. IMPRESSION: Impacted and displaced fracture through the left femoral neck as above. Electronically signed by: Justin Flores M.D. 12/06/2020 8:29 PM
[2020-12-06 20:45] LABS: Influenza A virus by PCR Negative (Neg); Influenza B virus by PCR Negative (Neg); RSV by PCR Negative (Neg); SARS CoV2 RNA(COVID-19) InHosp NEGATIVE (Negative)
--- NOTE | 2020-12-06 21:18 | Emergency Department Note ---
History of Present Illness General Chief complaint: Hip Pain Stated complaint: FALL, L HIP PAIN Time Seen by Provider: 12/06/20 19:02 History of Present Illness Provider complaint: Fall left hip pain Onset (ago): hour(s) 1 Location: lower extremity and left Severity: moderate Pain Consistency: + constant Maximum Pain Intensity: 5 Current Pain Intensity: 5 Quality: + aching Relieved By: + none Exacerbated By: + none 89-year-old female presents emergency department for left lower extremity pain status post fall. Patient reports she tripped on her walker approxi-1 hour ago. Patient denies hitting her head. No abdominal pain or chest pain. No difficulty breathing. Home Medications Medication Instructions Recorded Confirmed Type multivitamin 1 tab PO QAM 12/26/18 12/06/20 History nystatin 100,000 unit/gram topical 1 applic TOPICAL DAILY PRN gm 06/05/19 12/06/20 History powder diclofenac sodium 1 % topical gel 2 gm TOPICAL BID gm 08/03/19 12/06/20 History lactobacillus combination no.8 3 3,000 mmu cells PO QAM 08/09/19 12/06/20 History billion cell capsule acetaminophen [Tylenol] 325 mg PO QID PRN 10/02/19 12/06/20 History magnesium oxide 400 mg PO QAM 10/02/19 12/06/20 History potassium chloride 10 meq PO DAILY PRN 10/02/19 12/06/20 History albuterol sulfate 90 mcg/actuation 1 - 2 puff INHALATION QID PRN #18 g 04/03/20 12/06/20 Rx aerosol inhaler fluoxetine 20 mg capsule 20 mg PO DAILY #90 cap 04/17/20 12/06/20 Rx fluoxetine 10 mg capsule 10 mg PO DAILY #90 cap 07/22/20 12/06/20 Rx fluticasone furoate 100 1 inh INH QAM #28 ea 07/22/20 12/06/20 Rx mcg-vilanterol 25 mcg/dose inhalation powder clopidogrel 75 mg tablet 75 mg PO QAM #90 tab 07/29/20 12/06/20 Rx docusate sodium 100 mg capsule 100 mg PO BID cap 08/04/20 12/06/20 History ferrous sulfate 325 mg (65 mg 325 mg PO DAILY tab 08/04/20 12/06/20 History iron) tablet atorvastatin 20 mg tablet 20 mg PO QPM #90 tab 09/10/20 12/06/20 Rx amlodipine 10 mg tablet 10 mg PO QAM #90 tab 09/24/20 12/06/20 Rx levothyroxine 75 mcg capsule 75 mcg PO DAILY #90 cap 09/24/20 12/06/20 Rx furosemide 20 mg tablet 40 mg PO DAILY PRN tab 11/10/20 12/06/20 History omeprazole 20 mg tablet,delayed 20 mg PO QAM #90 tab 11/10/20 12/06/20 Rx release amiodarone 200 mg PO QAM 12/06/20 12/06/20 History metoprolol succinate 25 mg PO DAILY 12/06/20 12/06/20 History Allergies Allergy/AdvReac Type Severity Reaction Status Date / Time oxycodone Allergy Mild RASH Verified 12/06/20 20:08 alendronate sodium Allergy Unknown [facility] LIST Verified 12/06/20 20:08 Bactrim Allergy Unknown [facility] LIST Verified 02/07/18 04:16 cefuroxime Allergy Unknown UNKNOWN ON Verified 12/06/20 20:08 LIST Cipro Allergy Unknown Unknown Verified 02/07/18 21:42 ciprofloxacin Allergy Unknown UNKNOWN ON Verified 12/06/20 20:08 LIST codeine Allergy Unknown UNKNOWN ON Verified 12/06/20 20:08 LIST gabapentin Allergy Unknown UNKNOWN ON Verified 12/06/20 20:08 LIST meperidine Allergy Unknown UNKNOWN ON Verified 12/06/20 20:08 LIST piperacillin [From Zosyn] Allergy Unknown Unknown Unverified 12/06/20 20:08 propoxyphene Allergy Unknown UNKNOWN ON Verified 12/06/20 20:09 LIST Sulfa (Sulfonamide Allergy Unknown UNKNOWN ON Verified 12/06/20 20:09 Antibiotics) LIST sulfamethoxazole Allergy Unknown [facility] LIST Verified 12/06/20 20:09 tazobactam [From Zosyn] Allergy Unknown Unknown Unverified 12/06/20 20:09 trimethoprim Allergy Unknown [facility] LIST Verified 12/06/20 20:09 amphetamine AdvReac Severe UNKNOWN ON Verified 12/06/20 20:09 LIST dextroamphetamine AdvReac Severe UNKNOWN ON Verified 12/06/20 20:09 LIST hydrochlorothiazide AdvReac Intermediate GI DISTRESS Verified 12/06/20 20:09 methyldopa AdvReac Intermediate GI DISTRESS Verified 12/06/20 20:09 fluoxetine [From Prozac] AdvReac Unknown Hallucinati Unverified 12/06/20 20:09 ng Past Med/Surg History Medical History (Updated 12/06/20 @ 21:16 by Maria T Collins DO) A-fib Abscess of abdominal wall Arthritis of right shoulder region Asthma CAD (coronary artery disease) Chronic asthmatic bronchitis Chronic cerebral ischemia Chronic kidney disease, stage 3a Constipation Degenerative arthritis of knee, bilateral Depression with anxiety HTN (hypertension) Hyperlipidemia Hypokalemia Hypothyroidism Infected prosthetic mesh of abdominal wall Metabolic encephalopathy Obstructive sleep apnea, adult Renal mass Stress fracture of sacrococcygeal region Transient ischemic attack Tremor Vertigo Surgical History History of cataract surgery S/P cholecystectomy S/P hernia repair ventral hernia repair S/P hysterectomy Status post fracture of tibia Open treatment of Tibial shaft fracture with plate and screws Family History Mother , age 86 of an CA. She also had COPD. Myocardial infarction COPD (chronic obstructive pulmonary disease) Father , age 47 of an CA. Myocardial infarction Denies family history of Stroke Social History Smoking Status: Never smoker Second Hand Exposure: Yes (Grew up in a family that smoked.); Hx Alcohol Use: No Hx Substance Use: Yes Last Used Substance: Unknown Last Used Substance Other:: Tramadol in hospital with last admission at [facility]. Uses Tylenol. Preferred Language: Georgian Communication Ability: Effective Visual Impairment: No Limitations Hearing Ability: Normal Armature Connector Required: No Beliefs That Will Affect Care: Adventism Adventism Beliefs: Shinto. 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 other: 4 children, 1 is already Feels Safe at Home: Yes Childhood Exposure to Second-Hand Smoke: No Assistive Devices: Walker Review of Systems A total of 10 systems reviewed and were otherwise negative Physical Exam Vital Signs Vital Signs - 24 hr 12/06/20 19:02 12/06/20 19:05 12/06/20 19:07 Temperature 36.9 C Temperature Source Oral Pulse Rate 66 65 65 Pulse Rate from SpO2 Sensor 64 61 Respiratory Rate 21 20 Blood Pressure 191/100 H 191/100 H Blood Pressure Mean 130 130 Blood Pressure Position Lying Pulse Oximetry 97 98 Oxygen Delivery Method Sepsis Recent Fever Within 48 Hours No Sepsis New/Unexplained Change in Mental Status No Sepsis Action Taken by Nursing No Action Required 12/06/20 19:15 12/06/20 19:16 12/06/20 19:30 Temperature Temperature Source Pulse Rate 65 63 63 Pulse Rate from SpO2 Sensor 65 61 64 Respiratory Rate 22 25 H 25 H Blood Pressure 191/84 H 204/97 H Blood Pressure Mean 119 132 Blood Pressure Position Pulse Oximetry 96 97 98 Oxygen Delivery Method Room Air Room Air Room Air Sepsis Recent Fever Within 48 Hours Sepsis New/Unexplained Change in Mental Status Sepsis Action Taken by Nursing 12/06/20 19:31 12/06/20 19:45 12/06/20 19:52 Temperature Temperature Source Pulse Rate 63 62 62 Pulse Rate from SpO2 Sensor 63 62 63 Respiratory Rate 24 24 24 Blood Pressure 177/83 H Blood Pressure Mean 114 Blood Pressure Position Pulse Oximetry 98 97 98 Oxygen Delivery Method Room Air Room Air Room Air Sepsis Recent Fever Within 48 Hours Sepsis New/Unexplained Change in Mental Status Sepsis Action Taken by Nursing 12/06/20 20:00 12/06/20 20:15 12/06/20 20:30 Temperature Temperature Source Pulse Rate 62 63 62 Pulse Rate from SpO2 Sensor 62 63 65 Respiratory Rate 24 25 H 21 Blood Pressure 171/80 H 178/76 H 177/78 H Blood Pressure Mean 110 110 111 Blood Pressure Position Pulse Oximetry 95 98 98 Oxygen Delivery Method Sepsis Recent Fever Within 48 Hours Sepsis New/Unexplained Change in Mental Status Sepsis Action Taken by Nursing 12/06/20 20:45 12/06/20 20:46 Temperature Temperature Source Pulse Rate 65 64 Pulse Rate from SpO2 Sensor 65 64 Respiratory Rate 24 22 Blood Pressure 178/80 H Blood Pressure Mean 112 Blood Pressure Position Pulse Oximetry 98 97 Oxygen Delivery Method Sepsis Recent Fever Within 48 Hours Sepsis New/Unexplained Change in Mental Status Sepsis Action Taken by Nursing Physical Exam GENERAL: She is oriented to person, place, and time. She appears well-developed and well-nourished. She does not appear distressed. HENT: Exam performed. -Head: Normocephalic and atraumatic. -Right Ear: External ear normal. No mastoid tenderness. -Left Ear: External ear normal. No mastoid tenderness. -Mouth/Throat: The oropharynx is clear and moist. No trismus in the jaw. No dental abscesses or uvula swelling. No oropharyngeal exudate or tonsillar absc esses. EYES: Conjunctivae and EOM are normal. Pupils are equal, round, and reactive to light. Right eye exhibits no discharge. Left eye exhibits no discharge. No scleral icterus. NECK: Normal range of motion. Neck supple. No JVD present. No spinous process tenderness present. No carotid bruit present. No rigidity. No tracheal deviation and normal range of motion present. No Brudzinski's sign and no Kernig's sign noted. CV: Normal rate, regular rhythm, normal heart sounds and intact distal pulses. There is no peripheral edema. Palpable radial pulses bue. PULM/CHEST: Effort normal and breath sounds normal. No respiratory distress. No stridor. She has no wheezes. She has no rales. -Chest Wall: She exhibits no tenderness. ABD: The abdomen is soft. Bowel sounds are normal. She has no distension. No mass is present. There is no tenderness. There is no rebound, no guarding, no Hinton's sign and no tenderness at McBurney's point. Rovsig negative MUSC/SKEL: Left lower extremity is shortened and externally rotated. Pain on palpation of the left hip. LYMPH: No cervical adenopathy. NEURO: She is alert and oriented to person, place, and time. She has normal strength. No cranial nerve deficit or sensory deficit. Coordination and gait normal. GCS eye subscore is 4. GCS verbal subscore is 5. GCS motor subscore is 6. Cerebellar tests wnl. SKIN: Skin is warm and dry. She is not diaphoretic. PSYCH: She has a normal mood and affect. Behavior is normal. Judgment and thought content normal. Course Course 1901: The patient was evaluated in room A10. A complete history and physical exam was performed Cardiac monitoring: An order was placed for continuous cardiac monitoring. The monitor shows a rate of 60 with sinus rhythm Patient has obvious deformity consistent with left hip fracture. We will plan on admitting this patient to medicine. Patient states she sees Dr. Collins from orthopedics. We will plan on admitting this patient to Dr. Collins at [facility]. 2049: Patient's pain is under control as long she does not move and she has not requested any pain medication. X-ray does show impacted displaced fracture through the femoral neck. I discussed case with Dr. Vale on-call for Dr. Collins and he states no need for traction at this time. Administered Medications Sodium Chloride (Nss 1000ml) 1,000 mls @ 75 mls/hr IV .[id number] ROD Stop: 12/07/20 08:34 Last Admin: 12/06/20 19:43 Dose: 75 mls/hr Documented by: [id number] Medical Decision Making Laboratory Data Result diagrams: 12/06/20 19:47 12/06/20 19:47 Lab Results 12/06/20 12/06/20 12/06/20 Range/Units 19:13 19:35 19:35 WBC (4.8-10.8) K/uL RBC (4.2-5.4) M/uL Hgb (12.0-16.0) g/dL Hct (37-47) % MCV (80-100) fL MCH (25-34) pg MCHC (32-36) g/dL RDW Std Deviation (36.4-46.3) fL RDW Coeff of Elliot (11.5-14.5) % Plt Count (130-400) K/uL MPV (7.4-10.4) fL Immature Gran % (Auto) % Neut % (Auto) % Lymph % (Auto) % Walton % (Auto) % Eos % (Auto) % Baso % (Auto) % Neut # (Auto) (1.4-6.5) K/uL Lymph # (Auto) (1.2-3.4) K/uL Walton # (Auto) (0.11-0.59) K/uL Eos # (Auto) (0-0.5) K/uL Baso # (Auto) (0-0.2) K/uL Immature Gran # (Auto) (0.00-0.02) K/uL PT INR APTT PTT Ratio Sodium (136-145) mmol/L Potassium (3.5-5.1) mmol/L Chloride (98-107) mmol/L Carbon Dioxide (21-32) mmol/L Anion Gap (3-11) BUN (7-18) mg/dl Creatinine (0.6-1.2) mg/dl Est Cr Clr Drug Dosing ml/min Est GFR ( Amer) Est GFR (Non-Af Amer) BUN/Creatinine Ratio (10-20) Glucose (70-99) mg/dl Calcium (8.5-10.1) mg/dl Total Bilirubin (0.2-1) mg/dl AST (15-37) U/L ALT (12-78) U/L Alkaline Phosphatase (45-117) U/L Total Protein (6.4-8.2) gm/dl Albumin (3.4-5.0) gm/dl Globulin (2.5-4.0) gm/dl Albumin/Globulin Ratio (0.9-2) Specimen Hemolysis Urine Color Dark Yellow Urine Appearance Cloudy A (Clear) Urine pH 6.5 (4.5-7.5) Ur Specific [place] 1.019 (1.000-1.030) Urine Protein 1+ H (Negative) Urine Glucose (UA) Negative (Negative) Urine Ketones Trace H (Negative) Urine Blood 1+ H (Negative) Urine Nitrite Negative (Negative) Urine Bilirubin Negative (Negative) Urine Urobilinogen Negative (Negative) Ur Leukocyte Esterase 2+ H (Negative) Urine WBC (Auto) >30 H (0-5) /hpf Urine RBC (Auto) 0-4 (0-4) /hpf U Hyaline Cast (Auto) 5-10 H (0-5) /lpf U Epithel Cells (Auto) 0-5 (0-5) /lpf Urine Bacteria (Auto) 4+ H (Negative) Urine Yeast Not Reportable COVID-19 Eval Order CovFluRsv at [facility] SARS-CoV-2 (PCR) NEGATIVE (Negative) Influenza Type A (PCR) Negative (Neg) Influenza Type B (PCR) Negative (Neg) RSV (RT-PCR) Negative (Neg) Blood Type Antibody Screen 12/06/20 12/06/20 12/06/20 Range/Units 19:47 19:47 19:47 WBC 11.31 H (4.8-10.8) K/uL RBC 3.78 L (4.2-5.4) M/uL Hgb 12.2 (12.0-16.0) g/dL Hct 35.2 L (37-47) % MCV 93.1 (80-100) fL MCH 32.3 (25-34) pg MCHC 34.7 (32-36) g/dL RDW Std Deviation 48.1 H (36.4-46.3) fL RDW Coeff of Elliot 14.2 (11.5-14.5) % Plt Count 220 (130-400) K/uL MPV 8.7 (7.4-10.4) fL Immature Gran % (Auto) 0.8 % Neut % (Auto) 86.4 % Lymph % (Auto) 5.8 % Walton % (Auto) 5.6 % Eos % (Auto) 1.2 % Baso % (Auto) 0.2 % Neut # (Auto) 9.77 H (1.4-6.5) K/uL Lymph # (Auto) 0.66 L (1.2-3.4) K/uL Walton # (Auto) 0.63 H (0.11-0.59) K/uL Eos # (Auto) 0.14 (0-0.5) K/uL Baso # (Auto) 0.02 (0-0.2) K/uL Immature Gran # (Auto) 0.09 H (0.00-0.02) K/uL PT Cancelled INR Cancelled APTT Cancelled PTT Ratio Cancelled Sodium (136-145) mmol/L Potassium (3.5-5.1) mmol/L Chloride (98-107) mmol/L Carbon Dioxide (21-32) mmol/L Anion Gap (3-11) BUN (7-18) mg/dl Creatinine (0.6-1.2) mg/dl Est Cr Clr Drug Dosing ml/min Est GFR ( Amer) Est GFR (Non-Af Amer) BUN/Creatinine Ratio (10-20) Glucose (70-99) mg/dl Calcium (8.5-10.1) mg/dl Total Bilirubin (0.2-1) mg/dl AST (15-37) U/L ALT (12-78) U/L Alkaline Phosphatase (45-117) U/L Total Protein (6.4-8.2) gm/dl Albumin (3.4-5.0) gm/dl Globulin (2.5-4.0) gm/dl Albumin/Globulin Ratio (0.9-2) Specimen Hemolysis Urine Color Urine Appearance (Clear) Urine pH (4.5-7.5) Ur Specific [place] (1.000-1.030) Urine Protein (Negative) Urine Glucose (UA) (Negative) Urine Ketones (Negative) Urine Blood (Negative) Urine Nitrite (Negative) Urine Bilirubin (Negative) Urine Urobilinogen (Negative) Ur Leukocyte Esterase (Negative) Urine WBC (Auto) (0-5) /hpf Urine RBC (Auto) (0-4) /hpf U Hyaline Cast (Auto) (0-5) /lpf U Epithel Cells (Auto) (0-5) /lpf Urine Bacteria (Auto) (Negative) Urine Yeast COVID-19 Eval Order SARS-CoV-2 (PCR) (Negative) Influenza Type A (PCR) (Neg) Influenza Type B (PCR) (Neg) RSV (RT-PCR) (Neg) Blood Type O Positive Antibody Screen NEGATIVE 12/06/20 Range/Units 19:47 WBC (4.8-10.8) K/uL RBC (4.2-5.4) M/uL Hgb (12.0-16.0) g/dL Hct (37-47) % MCV (80-100) fL MCH (25-34) pg MCHC (32-36) g/dL RDW Std Deviation (36.4-46.3) fL RDW Coeff of Elliot (11.5-14.5) % Plt Count (130-400) K/uL MPV (7.4-10.4) fL Immature Gran % (Auto) % Neut % (Auto) % Lymph % (Auto) % Walton % (Auto) % Eos % (Auto) % Baso % (Auto) % Neut # (Auto) (1.4-6.5) K/uL Lymph # (Auto) (1.2-3.4) K/uL Walton # (Auto) (0.11-0.59) K/uL Eos # (Auto) (0-0.5) K/uL Baso # (Auto) (0-0.2) K/uL Immature Gran # (Auto) (0.00-0.02) K/uL PT INR APTT PTT Ratio Sodium 138 (136-145) mmol/L Potassium 4.3 (3.5-5.1) mmol/L Chloride 106 (98-107) mmol/L Carbon Dioxide 27 (21-32) mmol/L Anion Gap 5.0 (3-11) BUN 31 H (7-18) mg/dl Creatinine 1.08 (0.6-1.2) mg/dl Est Cr Clr Drug Dosing 34.0 ml/min Est GFR ( Amer) 52.7 Est GFR (Non-Af Amer) 45.5 BUN/Creatinine Ratio 28.3 H (10-20) Glucose 151 H (70-99) mg/dl Calcium 9.3 (8.5-10.1) mg/dl Total Bilirubin 0.3 (0.2-1) mg/dl AST 40 H (15-37) U/L ALT 46 (12-78) U/L Alkaline Phosphatase 104 (45-117) U/L Total Protein 6.9 (6.4-8.2) gm/dl Albumin 3.3 L (3.4-5.0) gm/dl Globulin 3.6 (2.5-4.0) gm/dl Albumin/Globulin Ratio 0.9 (0.9-2) Specimen Hemolysis Urine Color Urine Appearance (Clear) Urine pH (4.5-7.5) Ur Specific [place] (1.000-1.030) Urine Protein (Negative) Urine Glucose (UA) (Negative) Urine Ketones (Negative) Urine Blood (Negative) Urine Nitrite (Negative) Urine Bilirubin (Negative) Urine Urobilinogen (Negative) Ur Leukocyte Esterase (Negative) Urine WBC (Auto) (0-5) /hpf Urine RBC (Auto) (0-4) /hpf U Hyaline Cast (Auto) (0-5) /lpf U Epithel Cells (Auto) (0-5) /lpf Urine Bacteria (Auto) (Negative) Urine Yeast COVID-19 Eval Order SARS-CoV-2 (PCR) (Negative) Influenza Type A (PCR) (Neg) Influenza Type B (PCR) (Neg) RSV (RT-PCR) (Neg) Blood Type Antibody Screen Imaging Data Radiologist's Impression: Chest X-Ray 12/06/20 19:08 SINGLE VIEW CHEST CLINICAL HISTORY: Fall. Hip fracture. Preoperative examination. FINDINGS: An AP, portable, semierect chest radiograph is compared to study dated 10/23/2019 and correlated with chest CT dated 10/02/2019. The examination is degraded by portable technique and patient rotation. The heart is enlarged noting atherosclerotic calcification of the thoracic aorta. The pulmonary vasculature is noncongested. Chronic additional thickening is similar to previou s. There is chronic elevation of the right hemidiaphragm with bibasilar scarring/atelectasis. No airspace consolidation or large pleural effusion is identified. No pneumothorax is seen. The skeletal structures are osteopenic. The bony thorax is grossly intact. IMPRESSION: Cardiomegaly and chronic parenchymal changes as above with no acute cardiopulmonary abnormality identified. ACT 112: Negative or not required by law. Electronically signed by: Justin Flores M.D. 12/06/2020 8:09 PM Hip X-Ray 12/06/20 19:08 LEFT HIP 2 VIEWS CLINICAL HISTORY: Fall. Left hip injury. FINDINGS: AP and crosstable lateral portable views of the left hip are correlat ed with pelvic radiograph dated 05/18/2017. The skeletal structures are osteopenic. There is an impacted fracture through the left femoral neck. There is superior displacement of the femoral shaft by approximately 4 cm. There is also displacement of the lesser trochanter. Overlying soft tissue edema is noted. The visualized left hemipelvis appears intact. Moderate to advanced degenerative joint space narrowing is noted in the left hip. Sclerotic change is seen in the left sacroiliac joint. IMPRESSION: Impacted and displaced fracture through the left femoral neck as abo ve. Electronically signed by: Justin Flores M.D. 12/06/2020 8:29 PM ECG Data Indication: + other (pre-op) Rate (beats per minute): 63 Rhythm: + normal sinus ECG Intervals/blocks: + First degree AV block, + Normal QRS and + Normal QT-c ECG ST segments: + Normal ST segments [facility] Narrative 1901: The patient was evaluated in room A10. A complete history and physical exa m was performed Cardiac monitoring: An order was placed for continuous cardiac monitoring. The monitor shows a rate of 60 with sinus rhythm Patient has obvious deformity consistent with left hip fracture. We will plan on admitting this patient to medicine. Patient states she sees Dr. Collins from orthopedics. We will plan on admitting this patient to Dr. Collins at [facility]. 2049: Patient's pain is under control as long she does not move and she has not requested any pain medication. X-ray does show impacted displaced fracture through the femoral neck. I discussed case with Dr. Vale on-call for Dr. Collins and he states no need for traction at this time. Impression & Plan Femoral neck fracture Discharge Plan Visit Data Chief Complaint: Hip Pain Stated Complaint: FALL, L HIP PAIN ED Provider: Joseph Mireles Discharge Problem: Femoral neck fracture Patient Disposition: Admitted As Inpatient Forms Stand Alone Forms: My [facility] Prescriptions Prescriptions: No Action docusate sodium 100 mg capsule 100 mg PO BID RF: 0 albuterol sulfate [Ventolin HFA] 90 mcg/actuation HFA aerosol inhaler 1 - 2 puff INHALATION QID PRN (Reason: Shortness Of Breath Or Wheezing) Qty: 18 RF: 5 Breo Ellipta 100-25 mcg/dose blister with device 1 inh INH QAM Qty: 28 RF: 4 clopidogrel [Plavix] 75 mg tablet 75 mg PO QAM Qty: 90 RF: 1 atorvastatin 20 mg tablet 20 mg PO QPM Qty: 90 RF: 0 amlodipine 10 mg tablet 10 mg PO QAM Qty: 90 RF: 3 levothyroxine 75 mcg capsule 75 mcg PO DAILY Qty: 90 RF: 3 nystatin [Nystop] 100,000 unit/gram powder 1 applic topical DAILY PRN (Reason: Unknown) RF: 0 Adult Probiotic 3 billion cell capsule 3,000 mmu cells PO QAM RF: 0 ferrous sulfate [Iron (ferrous sulfate)] 325 mg (65 mg iron) tablet 325 mg PO DAILY RF: 0 fluoxetine 10 mg capsule 10 mg PO DAILY Qty: 90 RF: 0 fluoxetine 20 mg capsule 20 mg PO DAILY Qty: 90 RF: 3 furosemide 20 mg tablet 40 mg PO DAILY PRN (Reason: Edema) RF: 0 omeprazole 20 mg tablet,delayed release (DR/EC) 20 mg PO QAM Qty: 90 RF: 3 diclofenac sodium [Voltaren] 1 % gel 2 gm topical BID RF: 0 multivitamin Tablet 1 tab PO QAM RF: 0 acetaminophen [Tylenol] 325 mg Tablet 325 mg PO QID PRN (Reason: Pain) RF: 0 potassium chloride 10 mEq tablet,ER particles/crystals 10 meq PO DAILY PRN (Reason: .) RF: 0 magnesium oxide 400 mg (241.3 mg magnesium) tablet 400 mg PO QAM RF: 0 amiodarone 200 mg tablet 200 mg PO QAM RF: 0 metoprolol succinate 25 mg tablet extended release 24 hr 25 mg PO DAILY RF: 0 Referrals Referrals: Madyson Rodríguez MD [Primary Care Provider] -
--- NOTE | 2020-12-06 21:34 | History & Physical Report ---
Date of Service December 06, 2020 Assessment & Plan (1) Closed left hip fracture: 89yo C female s/p mechanical fall resulting in displaced fracture through the left femoral neck. Patient is neurovascularly intact. Pain is controlled at present. -Admit to medical -NPO after midnight -Orthopedic Surgery consultation appreciated -Pain control with Tylenol, Oxycodone and Morphine PRN -Colace, Dulcolax and Senna PRN Patient with multiple medical comorbidities which are stable. She denies ex ertional chest discomfort or dyspnea. Per RCRI criteria she is Class II Risk associated with 6% chance of , [place] or cardiac arrest. Patient medically optimized for surgery at this time. CAD and CHF are stable. Will hold Plavix in preparation for surgery. Patient to receive metoprolol in AM. Present on Admission?: Yes (2) PAF (paroxysmal atrial fibrillation): Chronic. Patient presently in NSR -Continue Amiodarone 200mg po daily -Continue Metoprolol 25mg po daily Present on Admission?: Yes (3) Depression with anxiety: Chronic -Continue Fluoxetine 30mg po daily Present on Admission?: Yes (4) COPD (chronic obstructive pulmonary disease): Chronic. Stable. No cough/SOB and wheeze -Continue Breo Ellipta -Albuterol PRN Present on Admission?: Yes (5) GERD (gastroesophageal reflux disease): Chronic. Stable -Continue Protonix 40mg po daily Present on Admission?: Yes (6) Hypothyroidism: Chronic -Continue Synthroid 75mcg po daily Present on Admission?: Yes (7) Hyperlipidemia: Chronic -Continue Atorvastatin 20mg po qPM Present on Admission?: Yes (8) CAD (coronary artery disease): Chronic. Stable -Hold Plavix for possible surgery -Continue Atorvastatin -Continue Metoprolol Present on Admission?: Yes (9) CHF (congestive heart failure): Chronic. Well compensated. Patient appears euvolemic at present -Continue to monitor -May need to add Lasix if patient becomes volume overloaded (10) HTN (hypertension): Stable -Continue Metoprolol -Continue Amlodipine -Continue to monitor F/E/N- LR at 75mL/hr, monitor electrolytes and replete as needed, NPO for now Ppx - SCDs Code - Full per discussion with patient Dispo - Admit to medical Present on Admission?: Yes History of Present Illness Chief Complaint: left hip fracture Primary Care Provider: Madyson Rodríguez MD Dorie Parra is a pleasant 89yo female with multiple medical problems. She was at home this evening ambulating with her walker when she lost her balance and fell onto her left hip. She had immediate pain and was unable to stand up. She denies LOC or head trauma. No chest pain/palpitations/SOB/dizziness/numbness or weakness preceding or following the fall. Patient has full sensation. Pain is tolerable if she remains still. No additional complaints at this time. ER Course: NSS Allergies Allergy/AdvReac Type Severity Reaction Status Date / Time oxycodone Allergy Mild RASH Verified 12/06/20 20:08 alendronate sodium Allergy Unknown [facility] LIST Verified 12/06/20 20:08 Bactrim Allergy Unknown [facility] LIST Verified 02/07/18 04:16 cefuroxime Allergy Unknown UNKNOWN ON Verified 12/06/20 20:08 LIST Cipro Allergy Unknown Unknown Verified 02/07/18 21:42 ciprofloxacin Allergy Unknown UNKNOWN ON Verified 12/06/20 20:08 LIST codeine Allergy Unknown UNKNOWN ON Verified 12/06/20 20:08 LIST gabapentin Allergy Unknown UNKNOWN ON Verified 12/06/20 20:08 LIST meperidine Allergy Unknown UNKNOWN ON Verified 12/06/20 20:08 LIST piperacillin [From Zosyn] Allergy Unknown Unknown Unverified 12/06/20 20:08 propoxyphene Allergy Unknown UNKNOWN ON Verified 12/06/20 20:09 LIST Sulfa (Sulfonamide Allergy Unknown UNKNOWN ON Verified 12/06/20 20:09 Antibiotics) LIST sulfamethoxazole Allergy Unknown [facility] LIST Verified 12/06/20 20:09 tazobactam [From Zosyn] Allergy Unknown Unknown Unverified 12/06/20 20:09 trimethoprim Allergy Unknown [facility] LIST Verified 12/06/20 20:09 amphetamine AdvReac Severe UNKNOWN ON Verified 12/06/20 20:09 LIST dextroamphetamine AdvReac Severe UNKNOWN ON Verified 12/06/20 20:09 LIST hydrochlorothiazide AdvReac Intermediate GI DISTRESS Verified 12/06/20 20:09 methyldopa AdvReac Intermediate GI DISTRESS Verified 12/06/20 20:09 fluoxetine [From Prozac] AdvReac Unknown Hallucinati Unverified 12/06/20 20:09 ng Home Medications Medication Instructions Recorded Confirmed Type multivitamin 1 tab PO QAM 12/26/18 12/06/20 History nystatin 100,000 unit/gram topical 1 applic TOPICAL DAILY PRN gm 06/05/19 12/06/20 History powder diclofenac sodium 1 % topical gel 2 gm TOPICAL BID gm 08/03/19 12/06/20 History lactobacillus combination no.8 3 3,000 mmu cells PO QAM 08/09/19 12/06/20 History billion cell capsule acetaminophen [Tylenol] 325 mg PO QID PRN 10/02/19 12/06/20 History magnesium oxide 400 mg PO QAM 10/02/19 12/06/20 History potassium chloride 10 meq PO DAILY PRN 10/02/19 12/06/20 History albuterol sulfate 90 mcg/actuation 1 - 2 puff INHALATION QID PRN #18 g 04/03/20 12/06/20 Rx aerosol inhaler fluoxetine 20 mg capsule 20 mg PO DAILY #90 cap 04/17/20 12/06/20 Rx fluoxetine 10 mg capsule 10 mg PO DAILY #90 cap 07/22/20 12/06/20 Rx fluticasone furoate 100 1 inh INH QAM #28 ea 07/22/20 12/06/20 Rx mcg-vilanterol 25 mcg/dose inhalation powder clopidogrel 75 mg tablet 75 mg PO QAM #90 tab 07/29/20 12/06/20 Rx docusate sodium 100 mg capsule 100 mg PO BID cap 08/04/20 12/06/20 History ferrous sulfate 325 mg (65 mg 325 mg PO DAILY tab 08/04/20 12/06/20 History iron) tablet atorvastatin 20 mg tablet 20 mg PO QPM #90 tab 09/10/20 12/06/20 Rx amlodipine 10 mg tablet 10 mg PO QAM #90 tab 09/24/20 12/06/20 Rx levothyroxine 75 mcg capsule 75 mcg PO DAILY #90 cap 09/24/20 12/06/20 Rx furosemide 20 mg tablet 40 mg PO DAILY PRN tab 11/10/20 12/06/20 History omeprazole 20 mg tablet,delayed 20 mg PO QAM #90 tab 11/10/20 12/06/20 Rx release amiodarone 200 mg PO QAM 12/06/20 12/06/20 History metoprolol succinate 25 mg PO DAILY 12/06/20 12/06/20 History Past Med/Surg History Medical History (Updated 12/06/20 @ 22:03 by Maria T Collins DO) A-fib Abscess of abdominal wall Arthritis of right shoulder region Asthma CAD (coronary artery disease) Chronic asthmatic bronchitis Chronic cerebral ischemia Chronic kidney disease, stage 3a Constipation Degenerative arthritis of knee, bilateral Depression with anxiety HTN (hypertension) Hyperlipidemia Hypokalemia Hypothyroidism Infected prosthetic mesh of abdominal wall Metabolic encephalopathy Obstructive sleep apnea, adult Renal mass Stress fracture of sacrococcygeal region Transient ischemic attack Tremor Vertigo Surgical History History of cataract surgery S/P cholecystectomy S/P hernia repair ventral hernia repair S/P hysterectomy Status post fracture of tibia Open treatment of Tibial shaft fracture with plate and screws Family History Mother , age 86 of an [place]. She also had COPD. Myocardial infarction COPD (chronic obstructive pulmonary disease) Father , age 47 of an [place]. Myocardial infarction Denies family history of Stroke Social History Smoking Status: Never smoker Second Hand Exposure: Yes (Grew up in a family that smoked.); Hx Alcohol Use: No Hx Substance Use: Yes Last Used Substance: Unknown Last Used Substance Other:: Tramadol in hospital with last admission at [facility]. Uses Tylenol. Preferred Language: Grenadian Communication Ability: Effective Visual Impairment: No Limitations Hearing Ability: Normal Monumental Stonemason Required: No Beliefs That Will Affect Care: Oriental Orthodox Oriental Orthodox Beliefs: Religion. 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 other: 4 children, 1 is already Feels Safe at Home: Yes Childhood Exposure to Second-Hand Smoke: No Assistive Devices: Walker Review of Systems Review of Systems: All systems reviewed & are unremarkable except as noted in HPI & below Physical Exam Physical Exam: General: patient resting comfortably, NAD, non-toxic in appearance, AA&O x 4 Skin: warm, dry, intact, no rashes or lesions, no bruising HEENT: NC/AT, PERRL, EOMI, anicteric sclera, conjunctiva without injection, external ear normal to inspection and nontender, nares patent, moist mucus membranes, dentition intact, no oropharyngeal lesions, neck supple, trachea midline, no LAD, no thyromegaly, no JVD Heart: +S1/S2, regular, no m/r/g Lungs: equal air entry bilaterally, no rales/rhonchi/wheezes Abd: +BS, soft, NT/ND, no masses/organomegaly/ascites Ext: warm, 2+ pulses in UE/LE bilaterally, no clubbing/cyanosis or edema. LLE shortened and externally rotated Neuro: nonfocal, patient AA&O x 4, speech intact, no facial droop, moving all extremities on command with equal strength 5/5 Results & Data Results & Data ([facility]) Vital Signs (Past 12 Hours) Vital Signs Temp Pulse Resp BP Pulse Ox 12/06/20 20:46 64 22 97 12/06/20 20:45 65 24 178/80 H 98 12/06/20 20:30 62 21 177/78 H 98 12/06/20 20:15 63 25 H 178/76 H 98 12/06/20 20:00 62 24 171/80 H 95 12/06/20 19:52 62 24 177/83 H 98 12/06/20 19:45 62 24 97 12/06/20 19:31 63 24 98 12/06/20 19:30 63 25 H 204/97 H 98 12/06/20 19:16 63 25 H 191/84 H 97 12/06/20 19:15 65 22 96 12/06/20 19:07 65 20 98 12/06/20 19:05 65 21 191/100 H 97 12/06/20 19:02 36.9 C 66 191/100 H Laboratory Results Lab Results 12/06/20 12/06/20 12/06/20 Range/Units 19:13 19:35 19:35 WBC (4.8-10.8) K/uL RBC (4.2-5.4) M/uL Hgb (12.0-16.0) g/dL Hct (37-47) % MCV (80-100) fL MCH (25-34) pg MCHC (32-36) g/dL RDW Std Deviation (36.4-46.3) fL RDW Coeff of Elliot (11.5-14.5) % Plt Count (130-400) K/uL MPV (7.4-10.4) fL Immature Gran % (Auto) % Neut % (Auto) % Lymph % (Auto) % [place] % (Auto) % Eos % (Auto) % Baso % (Auto) % Neut # (Auto) (1.4-6.5) K/uL Lymph # (Auto) (1.2-3.4) K/uL [place] # (Auto) (0.11-0.59) K/uL Eos # (Auto) (0-0.5) K/uL Baso # (Auto) (0-0.2) K/uL Immature Gran # (Auto) (0.00-0.02) K/uL PT INR APTT PTT Ratio Sodium (136-145) mmol/L Potassium (3.5-5.1) mmol/L Chloride (98-107) mmol/L Carbon Dioxide (21-32) mmol/L Anion Gap (3-11) BUN (7-18) mg/dl Creatinine (0.6-1.2) mg/dl Est Cr Clr Drug Dosing ml/min Est GFR ( Amer) Est GFR (Non-Af Amer) BUN/Creatinine Ratio (10-20) Glucose (70-99) mg/dl Calcium (8.5-10.1) mg/dl Total Bilirubin (0.2-1) mg/dl AST (15-37) U/L ALT (12-78) U/L Alkaline Phosphatase (45-117) U/L Total Protein (6.4-8.2) gm/dl Albumin (3.4-5.0) gm/dl Globulin (2.5-4.0) gm/dl Albumin/Globulin Ratio (0.9-2) Specimen Hemolysis Urine Color Dark Yellow Urine Appearance Cloudy A (Clear) Urine pH 6.5 (4.5-7.5) Ur Specific [place] 1.019 (1.000-1.030) Urine Protein 1+ H (Negative) Urine Glucose (UA) Negative (Negative) Urine Ketones Trace H (Negative) Urine Blood 1+ H (Negative) Urine Nitrite Negative (Negative) Urine Bilirubin Negative (Negative) Urine Urobilinogen Negative (Negative) Ur Leukocyte Esterase 2+ H (Negative) Urine WBC (Auto) >30 H (0-5) /hpf Urine RBC (Auto) 0-4 (0-4) /hpf U Hyaline Cast (Auto) 5-10 H (0-5) /lpf U Epithel Cells (Auto) 0-5 (0-5) /lpf Urine Bacteria (Auto) 4+ H (Negative) Urine Yeast Not Reportable COVID-19 Eval Order CovFluRsv at [facility] SARS-CoV-2 (PCR) NEGATIVE (Negative) Influenza Type A (PCR) Negative (Neg) Influenza Type B (PCR) Negative (Neg) RSV (RT-PCR) Negative (Neg) Blood Type Antibody Screen 12/06/20 12/06/20 12/06/20 Range/Units 19:47 19:47 19:47 WBC 11.31 H (4.8-10.8) K/uL RBC 3.78 L (4.2-5.4) M/uL Hgb 12.2 (12.0-16.0) g/dL Hct 35.2 L (37-47) % MCV 93.1 (80-100) fL MCH 32.3 (25-34) pg MCHC 34.7 (32-36) g/dL RDW Std Deviation 48.1 H (36.4-46.3) fL RDW Coeff of [place] 14.2 (11.5-14.5) % Plt Count 220 (130-400) K/uL MPV 8.7 (7.4-10.4) fL Immature Gran % (Auto) 0.8 % Neut % (Auto) 86.4 % Lymph % (Auto) 5.8 % [place] % (Auto) 5.6 % Eos % (Auto) 1.2 % Baso % (Auto) 0.2 % Neut # (Auto) 9.77 H (1.4-6.5) K/uL Lymph # (Auto) 0.66 L (1.2-3.4) K/uL [place] # (Auto) 0.63 H (0.11-0.59) K/uL Eos # (Auto) 0.14 (0-0.5) K/uL Baso # (Auto) 0.02 (0-0.2) K/uL Immature Gran # (Auto) 0.09 H (0.00-0.02) K/uL PT Cancelled INR Cancelled APTT Cancelled PTT Ratio Cancelled Sodium (136-145) mmol/L Potassium (3.5-5.1) mmol/L Chloride (98-107) mmol/L Carbon Dioxide (21-32) mmol/L Anion Gap (3-11) BUN (7-18) mg/dl Creatinine (0.6-1.2) mg/dl Est Cr Clr Drug Dosing ml/min Est GFR ( Amer) Est GFR (Non-Af Amer) BUN/Creatinine Ratio (10-20) Glucose (70-99) mg/dl Calcium (8.5-10.1) mg/dl Total Bilirubin (0.2-1) mg/dl AST (15-37) U/L ALT (12-78) U/L Alkaline Phosphatase (45-117) U/L Total Protein (6.4-8.2) gm/dl Albumin (3.4-5.0) gm/dl Globulin (2.5-4.0) gm/dl Albumin/Globulin Ratio (0.9-2) Specimen Hemolysis Urine Color Urine Appearance (Clear) Urine pH (4.5-7.5) Ur Specific [place] (1.000-1.030) Urine Protein (Negative) Urine Glucose (UA) (Negative) Urine Ketones (Negative) Urine Blood (Negative) Urine Nitrite (Negative) Urine Bilirubin (Negative) Urine Urobilinogen (Negative) Ur Leukocyte Esterase (Negative) Urine WBC (Auto) (0-5) /hpf Urine RBC (Auto) (0-4) /hpf U Hyaline Cast (Auto) (0-5) /lpf U Epithel Cells (Auto) (0-5) /lpf Urine Bacteria (Auto) (Negative) Urine Yeast COVID-19 Eval Order SARS-CoV-2 (PCR) (Negative) Influenza Type A (PCR) (Neg) Influenza Type B (PCR) (Neg) RSV (RT-PCR) (Neg) Blood Type O Positive Antibody Screen NEGATIVE 12/06/20 Range/Units 19:47 WBC (4.8-10.8) K/uL RBC (4.2-5.4) M/uL Hgb (12.0-16.0) g/dL Hct (37-47) % MCV (80-100) fL MCH (25-34) pg MCHC (32-36) g/dL RDW Std Deviation (36.4-46.3) fL RDW Coeff of [place] (11.5-14.5) % Plt Count (130-400) K/uL MPV (7.4-10.4) fL Immature Gran % (Auto) % Neut % (Auto) % Lymph % (Auto) % [place] % (Auto) % Eos % (Auto) % Baso % (Auto) % Neut # (Auto) (1.4-6.5) K/uL Lymph # (Auto) (1.2-3.4) K/uL [place] # (Auto) (0.11-0.59) K/uL Eos # (Auto) (0-0.5) K/uL Baso # (Auto) (0-0.2) K/uL Immature Gran # (Auto) (0.00-0.02) K/uL PT INR APTT PTT Ratio Sodium 138 (136-145) mmol/L Potassium 4.3 (3.5-5.1) mmol/L Chloride 106 (98-107) mmol/L Carbon Dioxide 27 (21-32) mmol/L Anion Gap 5.0 (3-11) BUN 31 H (7-18) mg/dl Creatinine 1.08 (0.6-1.2) mg/dl Est Cr Clr Drug Dosing 34.0 ml/min Est GFR ( Amer) 52.7 Est GFR (Non-Af Amer) 45.5 BUN/Creatinine Ratio 28.3 H (10-20) Glucose 151 H (70-99) mg/dl Calcium 9.3 (8.5-10.1) mg/dl Total Bilirubin 0.3 (0.2-1) mg/dl AST 40 H (15-37) U/L ALT 46 (12-78) U/L Alkaline Phosphatase 104 (45-117) U/L Total Protein 6.9 (6.4-8.2) gm/dl Albumin 3.3 L (3.4-5.0) gm/dl Globulin 3.6 (2.5-4.0) gm/dl Albumin/Globulin Ratio 0.9 (0.9-2) Specimen Hemolysis Urine Color Urine Appearance (Clear) Urine pH (4.5-7.5) Ur Specific [place] (1.000-1.030) Urine Protein (Negative) Urine Glucose (UA) (Negative) Urine Ketones (Negative) Urine Blood (Negative) Urine Nitrite (Negative) Urine Bilirubin (Negative) Urine Urobilinogen (Negative) Ur Leukocyte Esterase (Negative) Urine WBC (Auto) (0-5) /hpf Urine RBC (Auto) (0-4) /hpf U Hyaline Cast (Auto) (0-5) /lpf U Epithel Cells (Auto) (0-5) /lpf Urine Bacteria (Auto) (Negative) Urine Yeast COVID-19 Eval Order SARS-CoV-2 (PCR) (Negative) Influenza Type A (PCR) (Neg) Influenza Type B (PCR) (Neg) RSV (RT-PCR) (Neg) Blood Type Antibody Screen Diagnostic Findings LEFT HIP 2 VIEWS CLINICAL HISTORY: Fall. Left hip injury. FINDINGS: AP and crosstable lateral portable views of the left hip are correlated with pelvic radiograph dated 05/18/2017. The skeletal structures are osteopenic. There is an impacted fracture through the left femoral neck. There is superior displacement of the femoral shaft by approximately 4 cm. There is also displacement of the lesser trochanter. Overlying soft tissue edema is noted. The visualized left hemipelvis appears intact. Moderate to advanced degenerative joint space narrowing is noted in the left hip. Sclerotic change is seen in the left sacroiliac joint. IMPRESSION: Impacted and displaced fracture through the left femoral neck as above. Electronically signed by: Justin Flores M.D. 12/06/2020 8:29 PM Dictated: 12/06/202026Transcribed: 12/06/202026 SINGLE VIEW CHEST CLINICAL HISTORY: Fall. Hip fracture. Preoperative examination. FINDINGS: An AP, portable, semierect chest radiograph is compared to study dated 10/23/2019 and correlated with chest CT dated 10/02/2019. The examination is degraded by portable technique and patient rotation. The heart is enlarged noting atherosclerotic calcification of the thoracic aorta. The pulmonary vasculature is noncongested. Chronic additional thickening is similar to previous. There is chronic elevation of the right hemidiaphragm with bibasilar scarring/atelectasis. No airspace consolidation or large pleural effusion is identified. No pneumothorax is seen. The skeletal structures are osteopenic. The bony thorax is grossly intact. IMPRESSION: Cardiomegaly and chronic parenchymal changes as above with no acute cardiopulmonary abnormality identified. ACT 112: Negative or not required by law. Electronically signed by: Justin Flores M.D. 12/06/2020 8:09 PM Dictated: 12/06/202006Transcribed: 12/06/202006 ECG Additional Comments: SR at 64 with 1st degree AV block, JX=301, QRS=94, UJr=502, no acute ischemic changes PG Care Time/CCT Total # of Minutes Spent Total Time Spent with Patient: Total time spent is greater than 50% in coordination of care (as documented) at patient's floor/unit and/or counseling patient: Coding Level of Care Code 10985 Initial Inpt Care Lvl 3 Diagnoses Closed left hip fracture S72.002A Encounter type: initial encounter PAF (paroxysmal atrial fibrillation) I48.0 Depression with anxiety F41.8 COPD (chronic obstructive pulmonary disease) J44.1 COPD type: COPD with acute exacerbation GERD (gastroesophageal reflux disease) K21.9 Esophagitis presence: esophagitis presence not specified Hypothyroidism E03.9 Hypothyroidism type: acquired Hyperlipidemia E78.2 Hyperlipidemia type: mixed hyperlipidemia CAD (coronary artery disease) I25.10 Associated angina: without angina Coronary Disease-Associated Artery/Lesion type: [place] artery [place] vs. transplanted heart: [place] heart CHF (congestive heart failure) I50.9 Heart failure chronicity: acute Heart failure type: unspecified HTN (hypertension) I10 Hypertension type: essential hypertension (1) CAD (coronary artery disease) Associated angina: without angina Coronary Disease-Associated Artery/Lesion type: [place] artery [place] vs. transplanted heart: [place] heart Qualified Code(s): I25.10 - Atherosclerotic heart disease of [place] coronary artery without angina pectoris (2) Hyperlipidemia Hyperlipidemia type: mixed hyperlipidemia Qualified Code(s): E78.2 - Mixed hyperlipidemia (3) Hypothyroidism Hypothyroidism type: acquired Qualified Code(s): E03.9 - Hypothyroidism, unspecified (4) COPD (chronic obstructive pulmonary disease) COPD type: COPD with acute exacerbation Qualified Code(s): J44.1 - Chronic obstructive pulmonary disease with (acute) exacerbation (5) GERD (gastroesophageal reflux disease) Esophagitis presence: esophagitis presence not specified Qualified Code(s): K21.9 - Gastro-esophageal reflux disease without esophagitis (6) HTN (hypertension) Hypertension type: essential hypertension Qualified Code(s): I10 - Essential (primary) hypertension (7) Closed left hip fracture Encounter type: initial encounter Qualified Code(s): S72.002A - Fracture of unspecified part of neck of left femur, initial encounter for closed fracture (8) CHF (congestive heart failure) Heart failure chronicity: acute Heart failure type: unspecified Qualified Code(s): I50.9 - Heart failure, unspecified
[2020-12-06 22:14] LABS: Partial Thromboplastin Ratio 0.9; Partial Thromboplastin Time 22.8 Seconds (21.0-31.0); Prothrombin Time 10.5 Seconds (9.0-12.0)
[2020-12-06] MEDS ORDERED: bisacodyL 10 MG SUPP PR PRN (23:07)
[2020-12-06] MEDS ORDERED: LACTATED RINGER'S 1,000 ML IV SCH (23:07)
[2020-12-06] MEDS ORDERED: MoRPHine SULFATE 2 MG/ML CARP IV PRN (23:07)
[2020-12-06] MEDS ORDERED: ALBUTEROL HFA 8 GM INHALER INH PRN (23:07)
[2020-12-06] MEDS ORDERED: ONDANSETRON INJ 2 MG/ML 2 ML VIAL IV PRN (23:07)
[2020-12-06] MEDS ORDERED: MAGNESIUM HYDROXIDE SUSP 30 ML UDC PO PRN (23:07)
[2020-12-06] MEDS ORDERED: NALOXONE HCL 0.4 MG/1 ML VIAL/CARP IV PRN (23:07)
[2020-12-06] MEDS: oxyCODONE HCL IR 5 MG TAB (IMMEDIATE RELEASE) PO PRN (23:49)
[2020-12-07] MEDS: ATORVASTATIN 20 MG TAB PO SCH ×2 (00:04→20:17)
[2020-12-07] MEDS: DOCUSATE SODIUM 100 MG CAP PO SCH ×3 (00:04→20:17)
[2020-12-07] MEDS: LEVOTHYROXINE SODIUM 75 MCG TABLET PO SCH (05:37)
[2020-12-07 06:32] LABS: Basophils # (auto) 0.02 K/uL (0-0.2); Basophils % (auto) 0.2 %; Hematocrit (blood only) 32.5 % (37-47); Hemoglobin 10.9 g/dL (12.0-16.0); Immature Granulocytes # (auto) 0.13 K/uL (0.00-0.02); Lymphocytes # (auto) 0.86 K/uL (1.2-3.4); Lymphocytes % (auto) 6.6 %; Mean Corpuscular Hemoglobin 31.4 pg (25-34); Mean Corpuscular Hgb Conc 33.5 g/dL (32-36); Mean Corpuscular Volume 93.7 fL (80-100); Mean Platelet Volume 8.9 fL (7.4-10.4); Monocytes # (auto) 0.72 K/uL (0.11-0.59); Monocytes % (auto) 5.5 %; Neutrophils # (auto) 11.32 K/uL (1.4-6.5); Neutrophils % (auto) 86.7 %; Platelet Count 225 K/uL (130-400); RDW Coefficient of Variation 14.5 % (11.5-14.5); RDW Standard Deviation 49.5 fL (36.4-46.3); Red Blood Count 3.47 M/uL (4.2-5.4); White Blood Count 13.05 K/uL (4.8-10.8)
[2020-12-07 07:12] LABS: BUN Creatinine Ratio 30.6 (10-20); Calcium 9.8 mg/dl (8.5-10.1); Creatinine Clr Calc Pharmacy 33.9 ml/min; Est GFR (African American) 52.1; Potassium 4.9 mmol/L (3.5-5.1)
--- NOTE | 2020-12-07 08:09 | Electrocardiogram Report ---
Test Reason : Blood Pressure : / mmHG Vent. Rate : 063 BPM Atrial Rate : 063 BPM P-R Int : 238 ms QRS Dur : 094 ms QT Int : 474 ms P-R-T Axes : 071 038 085 degrees QTc Int : 485 ms Poor data quality, interpretation may be adversely affected Sinus rhythm with 1st degree A-V block Nonspecific T wave abnormality Prolonged QT When compared with ECG of 02-OCT-2019 09:35, No significant change was found Confirmed by Juan Hewitt ([id number]) on 12/07/2020 8:08:41 AM Referred By: REFERRED SELF Confirmed By:Juan Hewitt
[2020-12-07] MEDS: FLUoxetine HCL 10 MG CAP PO SCH (08:38)
[2020-12-07] MEDS: FLUoxetine HCL 20 MG CAP PO SCH (08:38)
[2020-12-07] MEDS: AMIODARONE 200 MG TAB PO SCH (08:38)
[2020-12-07] MEDS: PANTOprazole 40 MG TAB PO SCH (08:38)
[2020-12-07] MEDS: METOPROLOL SUCC 25MG EXT REL TAB PO SCH (08:39)
[2020-12-07] MEDS: amLODIPine BESYLATE 5 MG TAB PO SCH (08:39)
[2020-12-07] MEDS: FLUTICASONE/VILANTEROL 100/25MCG 14 PUFFS/INHALER INH SCH (08:39)
[2020-12-07] MEDS: MAGNESIUM OXIDE 400 MG TAB PO SCH (08:39)
--- NOTE | 2020-12-07 08:58 | Orthopedic Consultation ---
Date of Consultation December 07, 2020 Assessment & Plan (1) Closed left hip fracture: The patient is an 89 year old female who sustained a left hip fracture from a ground level fall. The patients treatment options of conservative versus surgical intervention were discussed. Since the patient was an ambulatory prior to the injury and to avoid the risks of bed sores, pulmonary complications, and to give the best chance for ambulation, I recommended surgery. The patient understands the risks of surgery, which include but are not limited to: bleeding, infection, re-operation, damage to nerves and arteries, continued pain, failure of the hardware, fracture, dislocation, DVT, and . In addition the patient is aware of the 20-30% morbidity associated with hip fracture for up to 1 year following a hip fracture. The patient has elected to proceed with surgery and the informed consent was signed. The patient understands all of these instructions and explanations, all of their questions have been satisfactorily addressed. Placed on the add-on schedule for today. Will proceed with surgery if medically stable. Patient has been NPO after midnight. The patient is NWB. TEDs and foot pumps to RLE. Antibiotics rn coronary care unit to OR. Present on Admission?: Yes History of Present Illness Reason for Consultation: Left hip fracture Requesting Physician: Valentin Vale MD Attending Physician: Sorin Walker, History of Present Illness Dorie is a pleasant 89 year old female who tripped and fell walking backwards with her walker landing on a hard surface injuring her left hip. She was brought to the ED, x-rays were obtained and I was consulted for further evaluation and treatment of her hip fracture. She was admitted by the hospitalist service. She denies any CP, SOB, dizziness, or other injuries. Allergies Allergy/AdvReac Type Severity Reaction Status Date / Time oxycodone Allergy Mild RASH Verified 12/06/20 20:08 alendronate sodium Allergy Unknown [facility] LIST Verified 12/06/20 20:08 Bactrim Allergy Unknown [facility] LIST Verified 02/07/18 04:16 cefuroxime Allergy Unknown UNKNOWN ON Verified 12/06/20 20:08 LIST Cipro Allergy Unknown Unknown Verified 02/07/18 21:42 ciprofloxacin Allergy Unknown UNKNOWN ON Verified 12/06/20 20:08 LIST codeine Allergy Unknown UNKNOWN ON Verified 12/06/20 20:08 LIST gabapentin Allergy Unknown UNKNOWN ON Verified 12/06/20 20:08 LIST meperidine Allergy Unknown UNKNOWN ON Verified 12/06/20 20:08 LIST piperacillin [From Zosyn] Allergy Unknown Unknown Unverified 12/06/20 20:08 propoxyphene Allergy Unknown UNKNOWN ON Verified 12/06/20 20:09 LIST Sulfa (Sulfonamide Allergy Unknown UNKNOWN ON Verified 12/06/20 20:09 Antibiotics) LIST sulfamethoxazole Allergy Unknown [facility] LIST Verified 12/06/20 20:09 tazobactam [From Zosyn] Allergy Unknown Unknown Unverified 12/06/20 20:09 trimethoprim Allergy Unknown [facility] LIST Verified 12/06/20 20:09 acetaminophen [From Percocet] Allergy Unknown Verified 12/06/20 22:59 amphetamine AdvReac Severe UNKNOWN ON Verified 12/06/20 20:09 LIST dextroamphetamine AdvReac Severe UNKNOWN ON Verified 12/06/20 20:09 LIST hydrochlorothiazide AdvReac Intermediate GI DISTRESS Verified 12/06/20 20:09 methyldopa AdvReac Intermediate GI DISTRESS Verified 12/06/20 20:09 fluoxetine [From Prozac] AdvReac Unknown Hallucinati Unverified 12/06/20 20:09 ng Home Medications Medication Instructions Recorded Confirmed Type multivitamin 1 tab PO QAM 12/26/18 12/06/20 History nystatin 100,000 unit/gram topical 1 applic TOPICAL DAILY PRN gm 06/05/19 12/06/20 History powder diclofenac sodium 1 % topical gel 2 gm TOPICAL BID gm 08/03/19 12/06/20 History lactobacillus combination no.8 3 3,000 mmu cells PO QAM 08/09/19 12/06/20 History billion cell capsule acetaminophen [Tylenol] 325 mg PO QID PRN 10/02/19 12/06/20 History magnesium oxide 400 mg PO QAM 10/02/19 12/06/20 History potassium chloride 10 meq PO DAILY PRN 10/02/19 12/06/20 History albuterol sulfate 90 mcg/actuation 1 - 2 puff INHALATION QID PRN #18 g 04/03/20 12/06/20 Rx aerosol inhaler fluoxetine 20 mg capsule 20 mg PO DAILY #90 cap 04/17/20 12/06/20 Rx fluoxetine 10 mg capsule 10 mg PO DAILY #90 cap 07/22/20 12/06/20 Rx fluticasone furoate 100 1 inh INH QAM #28 ea 07/22/20 12/06/20 Rx mcg-vilanterol 25 mcg/dose inhalation powder clopidogrel 75 mg tablet 75 mg PO QAM #90 tab 07/29/20 12/06/20 Rx docusate sodium 100 mg capsule 100 mg PO BID cap 08/04/20 12/06/20 History ferrous sulfate 325 mg (65 mg 325 mg PO DAILY tab 08/04/20 12/06/20 History iron) tablet atorvastatin 20 mg tablet 20 mg PO QPM #90 tab 09/10/20 12/06/20 Rx amlodipine 10 mg tablet 10 mg PO QAM #90 tab 09/24/20 12/06/20 Rx levothyroxine 75 mcg capsule 75 mcg PO DAILY #90 cap 09/24/20 12/06/20 Rx furosemide 20 mg tablet 40 mg PO DAILY PRN tab 11/10/20 12/06/20 History omeprazole 20 mg tablet,delayed 20 mg PO QAM #90 tab 11/10/20 12/06/20 Rx release amiodarone 200 mg PO QAM 12/06/20 12/06/20 History metoprolol succinate 25 mg PO DAILY 12/06/20 12/06/20 History Patient History Medical History A-fib Abscess of abdominal wall Arthritis of right shoulder region Asthma CAD (coronary artery disease) Chronic asthmatic bronchitis Chronic cerebral ischemia Chronic kidney disease, stage 3a Constipation Degenerative arthritis of knee, bilateral Depression with anxiety HTN (hypertension) Hyperlipidemia Hypokalemia Hypothyroidism Infected prosthetic mesh of abdominal wall Metabolic encephalopathy Obstructive sleep apnea, adult Renal mass Stress fracture of sacrococcygeal region Transient ischemic attack Tremor Vertigo Surgical History History of cataract surgery S/P cholecystectomy S/P hernia repair ventral hernia repair S/P hysterectomy Status post fracture of tibia Open treatment of Tibial shaft fracture with plate and screws Family History Mother , age 86 of an [place]. She also had COPD. Myocardial infarction COPD (chronic obstructive pulmonary disease) Father , age 47 of an NE. 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 other: 4 children, 1 is already Feels Safe at Home: Yes Childhood Exposure to Second-Hand Smoke: No Assistive Devices: CPAP, Denture - Upper, Denture - Lower, Glasses, Walker and Wheelchair Review of Systems Review of Systems: All systems reviewed & are unremarkable except as noted in HPI & below Physical Exam Physical Exam: LLE: Wiggling toes and ankle. Sensation to light touch intact. BCR < 2sec. calf soft and non-tender. + TTP left hip/groin. Results & Data ([facility]) Vital Signs (Past 12 Hours) Vital Signs Temp Pulse Pulse Resp BP BP Pulse Ox 12/07/20 07:22 36.9 C 66 16 158/83 H 98 12/07/20 03:23 64 20 94 12/07/20 00:03 72 18 96 12/06/20 23:12 36.6 C 67 18 169/85 H 96 12/06/20 21:31 66 24 181/89 H 97 12/06/20 21:30 66 24 98 12/06/20 21:15 66 24 181/84 H 98 12/06/20 21:01 66 25 H 171/83 H 97 12/06/20 21:00 66 23 98 Laboratory Results 12/07/20 12/07/20 12/06/20 Range/Units 05:49 05:49 21:54 WBC 13.05 H (4.8-10.8) K/uL RBC 3.47 L (4.2-5.4) M/uL Hgb 10.9 L (12.0-16.0) g/dL Hct 32.5 L (37-47) % MCV 93.7 (80-100) fL MCH 31.4 (25-34) pg MCHC 33.5 (32-36) g/dL RDW Std Deviation 49.5 H (36.4-46.3) fL RDW Coeff of [place] 14.5 (11.5-14.5) % Plt Count 225 (130-400) K/uL MPV 8.9 (7.4-10.4) fL Immature Gran % (Auto) 1.0 % Neut % (Auto) 86.7 % Lymph % (Auto) 6.6 % [place] % (Auto) 5.5 % Eos % (Auto) 0.0 % Baso % (Auto) 0.2 % Neut # (Auto) 11.32 H (1.4-6.5) K/uL Lymph # (Auto) 0.86 L (1.2-3.4) K/uL [place] # (Auto) 0.72 H (0.11-0.59) K/uL Eos # (Auto) 0.00 (0-0.5) K/uL Baso # (Auto) 0.02 (0-0.2) K/uL Immature Gran # (Auto) 0.13 H (0.00-0.02) K/uL PT 10.5 INR 1.0 APTT 22.8 PTT Ratio 0.9 Sodium 137 (136-145) mmol/L Potassium 4.9 (3.5-5.1) mmol/L Chloride 106 (98-107) mmol/L Carbon Dioxide 26 (21-32) mmol/L Anion Gap 5.0 (3-11) BUN 33 H (7-18) mg/dl Creatinine 1.09 (0.6-1.2) mg/dl Est Cr Clr Drug Dosing 33.9 ml/min Est GFR ( Amer) 52.1 Est GFR (Non-Af Amer) 45.0 BUN/Creatinine Ratio 30.6 H (10-20) Glucose 136 H (70-99) mg/dl Calcium 9.8 (8.5-10.1) mg/dl Total Bilirubin (0.2-1) mg/dl AST (15-37) U/L ALT (12-78) U/L Alkaline Phosphatase (45-117) U/L Total Protein (6.4-8.2) gm/dl Albumin (3.4-5.0) gm/dl Globulin (2.5-4.0) gm/dl Albumin/Globulin Ratio (0.9-2) Specimen Hemolysis Urine Color Urine Appearance (Clear) Urine pH (4.5-7.5) Ur Specific [place] (1.000-1.030) Urine Protein (Negative) Urine Glucose (UA) (Negative) Urine Ketones (Negative) Urine Blood (Negative) Urine Nitrite (Negative) Urine Bilirubin (Negative) Urine Urobilinogen (Negative) Ur Leukocyte Esterase (Negative) Urine WBC (Auto) (0-5) /hpf Urine RBC (Auto) (0-4) /hpf U Hyaline Cast (Auto) (0-5) /lpf U Epithel Cells (Auto) (0-5) /lpf Urine Bacteria (Auto) (Negative) Urine Yeast COVID-19 Eval Order SARS-CoV-2 (PCR) (Negative) Influenza Type A (PCR) (Neg) Influenza Type B (PCR) (Neg) RSV (RT-PCR) (Neg) Blood Type Antibody Screen 12/06/20 12/06/20 12/06/20 Range/Units 19:47 19:47 19:47 WBC 11.31 H (4.8-10.8) K/uL RBC 3.78 L (4.2-5.4) M/uL Hgb 12.2 (12.0-16.0) g/dL Hct 35.2 L (37-47) % MCV 93.1 (80-100) fL MCH 32.3 (25-34) pg MCHC 34.7 (32-36) g/dL RDW Std Deviation 48.1 H (36.4-46.3) fL RDW Coeff of [place] 14.2 (11.5-14.5) % Plt Count 220 (130-400) K/uL MPV 8.7 (7.4-10.4) fL Immature Gran % (Auto) 0.8 % Neut % (Auto) 86.4 % Lymph % (Auto) 5.8 % [place] % (Auto) 5.6 % Eos % (Auto) 1.2 % Baso % (Auto) 0.2 % Neut # (Auto) 9.77 H (1.4-6.5) K/uL Lymph # (Auto) 0.66 L (1.2-3.4) K/uL [place] # (Auto) 0.63 H (0.11-0.59) K/uL Eos # (Auto) 0.14 (0-0.5) K/uL Baso # (Auto) 0.02 (0-0.2) K/uL Immature Gran # (Auto) 0.09 H (0.00-0.02) K/uL PT Cancelled INR Cancelled APTT Cancelled PTT Ratio Cancelled Sodium 138 (136-145) mmol/L Potassium 4.3 (3.5-5.1) mmol/L Chloride 106 (98-107) mmol/L Carbon Dioxide 27 (21-32) mmol/L Anion Gap 5.0 (3-11) BUN 31 H (7-18) mg/dl Creatinine 1.08 (0.6-1.2) mg/dl Est Cr Clr Drug Dosing 34.0 ml/min Est GFR ( Amer) 52.7 Est GFR (Non-Af Amer) 45.5 BUN/Creatinine Ratio 28.3 H (10-20) Glucose 151 H (70-99) mg/dl Calcium 9.3 (8.5-10.1) mg/dl Total Bilirubin 0.3 (0.2-1) mg/dl AST 40 H (15-37) U/L ALT 46 (12-78) U/L Alkaline Phosphatase 104 (45-117) U/L Total Protein 6.9 (6.4-8.2) gm/dl Albumin 3.3 L (3.4-5.0) gm/dl Globulin 3.6 (2.5-4.0) gm/dl Albumin/Globulin Ratio 0.9 (0.9-2) Specimen Hemolysis Urine Color Urine Appearance (Clear) Urine pH (4.5-7.5) Ur Specific [place] (1.000-1.030) Urine Protein (Negative) Urine Glucose (UA) (Negative) Urine Ketones (Negative) Urine Blood (Negative) Urine Nitrite (Negative) Urine Bilirubin (Negative) Urine Urobilinogen (Negative) Ur Leukocyte Esterase (Negative) Urine WBC (Auto) (0-5) /hpf Urine RBC (Auto) (0-4) /hpf U Hyaline Cast (Auto) (0-5) /lpf U Epithel Cells (Auto) (0-5) /lpf Urine Bacteria (Auto) (Negative) Urine Yeast COVID-19 Eval Order SARS-CoV-2 (PCR) (Negative) Influenza Type A (PCR) (Neg) Influenza Type B (PCR) (Neg) RSV (RT-PCR) (Neg) Blood Type Antibody Screen 12/06/20 12/06/20 12/06/20 Range/Units 19:47 19:35 19:35 WBC (4.8-10.8) K/uL RBC (4.2-5.4) M/uL Hgb (12.0-16.0) g/dL Hct (37-47) % MCV (80-100) fL MCH (25-34) pg MCHC (32-36) g/dL RDW Std Deviation (36.4-46.3) fL RDW Coeff of [place] (11.5-14.5) % Plt Count (130-400) K/uL MPV (7.4-10.4) fL Immature Gran % (Auto) % Neut % (Auto) % Lymph % (Auto) % [place] % (Auto) % Eos % (Auto) % Baso % (Auto) % Neut # (Auto) (1.4-6.5) K/uL Lymph # (Auto) (1.2-3.4) K/uL [place] # (Auto) (0.11-0.59) K/uL Eos # (Auto) (0-0.5) K/uL Baso # (Auto) (0-0.2) K/uL Immature Gran # (Auto) (0.00-0.02) K/uL PT INR APTT PTT Ratio Sodium (136-145) mmol/L Potassium (3.5-5.1) mmol/L Chloride (98-107) mmol/L Carbon Dioxide (21-32) mmol/L Anion Gap (3-11) BUN (7-18) mg/dl Creatinine (0.6-1.2) mg/dl Est Cr Clr Drug Dosing ml/min Est GFR ( Amer) Est GFR (Non-Af Amer) BUN/Creatinine Ratio (10-20) Glucose (70-99) mg/dl Calcium (8.5-10.1) mg/dl Total Bilirubin (0.2-1) mg/dl AST (15-37) U/L ALT (12-78) U/L Alkaline Phosphatase (45-117) U/L Total Protein (6.4-8.2) gm/dl Albumin (3.4-5.0) gm/dl Globulin (2.5-4.0) gm/dl Albumin/Globulin Ratio (0.9-2) Specimen Hemolysis Urine Color Urine Appearance (Clear) Urine pH (4.5-7.5) Ur Specific [place] (1.000-1.030) Urine Protein (Negative) Urine Glucose (UA) (Negative) Urine Ketones (Negative) Urine Blood (Negative) Urine Nitrite (Negative) Urine Bilirubin (Negative) Urine Urobilinogen (Negative) Ur Leukocyte Esterase (Negative) Urine WBC (Auto) (0-5) /hpf Urine RBC (Auto) (0-4) /hpf U Hyaline Cast (Auto) (0-5) /lpf U Epithel Cells (Auto) (0-5) /lpf Urine Bacteria (Auto) (Negative) Urine Yeast COVID-19 Eval Order CovFluRsv at [facility] SARS-CoV-2 (PCR) NEGATIVE (Negative) Influenza Type A (PCR) Negative (Neg) Influenza Type B (PCR) Negative (Neg) RSV (RT-PCR) Negative (Neg) Blood Type O Positive Antibody Screen NEGATIVE 12/06/20 Range/Units 19:13 WBC (4.8-10.8) K/uL RBC (4.2-5.4) M/uL Hgb (12.0-16.0) g/dL Hct (37-47) % MCV (80-100) fL MCH (25-34) pg MCHC (32-36) g/dL RDW Std Deviation (36.4-46.3) fL RDW Coeff of [place] (11.5-14.5) % Plt Count (130-400) K/uL MPV (7.4-10.4) fL Immature Gran % (Auto) % Neut % (Auto) % Lymph % (Auto) % [place] % (Auto) % Eos % (Auto) % Baso % (Auto) % Neut # (Auto) (1.4-6.5) K/uL Lymph # (Auto) (1.2-3.4) K/uL [place] # (Auto) (0.11-0.59) K/uL Eos # (Auto) (0-0.5) K/uL Baso # (Auto) (0-0.2) K/uL Immature Gran # (Auto) (0.00-0.02) K/uL PT INR APTT PTT Ratio Sodium (136-145) mmol/L Potassium (3.5-5.1) mmol/L Chloride (98-107) mmol/L Carbon Dioxide (21-32) mmol/L Anion Gap (3-11) BUN (7-18) mg/dl Creatinine (0.6-1.2) mg/dl Est Cr Clr Drug Dosing ml/min Est GFR ( Amer) Est GFR (Non-Af Amer) BUN/Creatinine Ratio (10-20) Glucose (70-99) mg/dl Calcium (8.5-10.1) mg/dl Total Bilirubin (0.2-1) mg/dl AST (15-37) U/L ALT (12-78) U/L Alkaline Phosphatase (45-117) U/L Total Protein (6.4-8.2) gm/dl Albumin (3.4-5.0) gm/dl Globulin (2.5-4.0) gm/dl Albumin/Globulin Ratio (0.9-2) Specimen Hemolysis Urine Color Dark Yellow Urine Appearance Cloudy A (Clear) Urine pH 6.5 (4.5-7.5) Ur Specific [place] 1.019 (1.000-1.030) Urine Protein 1+ H (Negative) Urine Glucose (UA) Negative (Negative) Urine Ketones Trace H (Negative) Urine Blood 1+ H (Negative) Urine Nitrite Negative (Negative) Urine Bilirubin Negative (Negative) Urine Urobilinogen Negative (Negative) Ur Leukocyte Esterase 2+ H (Negative) Urine WBC (Auto) >30 H (0-5) /hpf Urine RBC (Auto) 0-4 (0-4) /hpf U Hyaline Cast (Auto) 5-10 H (0-5) /lpf U Epithel Cells (Auto) 0-5 (0-5) /lpf Urine Bacteria (Auto) 4+ H (Negative) Urine Yeast Not Reportable COVID-19 Eval Order SARS-CoV-2 (PCR) (Negative) Influenza Type A (PCR) (Neg) Influenza Type B (PCR) (Neg) RSV (RT-PCR) (Neg) Blood Type Antibody Screen Diagnostic Findings I reviewed the AP and lateral left hip which showed a displaced left femoral neck fracture. (1) Closed left hip fracture Encounter type: initial encounter Qualified Code(s): S72.002A - Fracture of unspecified part of neck of left femur, initial encounter for closed fracture
[2020-12-07] MEDS ORDERED: ceFAZolin 1000MG 1,000 MG/7.5 ML SYR IV SCH ×2 (08:59→20:00)
--- NOTE | 2020-12-07 09:28 | Anesthesiology Consultation ---
Date of Service December 07, 2020 Assessment & Plan (1) Encounter for pre-operative examination: Chart Review Chart Review: Acceptable Risk for Surgery History Surgery Operation Date: 12/07/20 10:30 Proposed Procedures p Bipolar Hip Prosthesis(Left) - Gallito Vale MD Height/Weight Height: 5 ft 4 in Weight: 71.4 kg Allergies Allergy/AdvReac Type Severity Reaction Status Date / Time oxycodone Allergy Mild RASH Verified 12/06/20 20:08 alendronate sodium Allergy Unknown [facility] LIST Verified 12/06/20 20:08 Bactrim Allergy Unknown [facility] LIST Verified 02/07/18 04:16 cefuroxime Allergy Unknown UNKNOWN ON Verified 12/06/20 20:08 LIST Cipro Allergy Unknown Unknown Verified 02/07/18 21:42 ciprofloxacin Allergy Unknown UNKNOWN ON Verified 12/06/20 20:08 LIST codeine Allergy Unknown UNKNOWN ON Verified 12/06/20 20:08 LIST gabapentin Allergy Unknown UNKNOWN ON Verified 12/06/20 20:08 LIST meperidine Allergy Unknown UNKNOWN ON Verified 12/06/20 20:08 LIST piperacillin [From Zosyn] Allergy Unknown Unknown Unverified 12/06/20 20:08 propoxyphene Allergy Unknown UNKNOWN ON Verified 12/06/20 20:09 LIST Sulfa (Sulfonamide Allergy Unknown UNKNOWN ON Verified 12/06/20 20:09 Antibiotics) LIST sulfamethoxazole Allergy Unknown [facility] LIST Verified 12/06/20 20:09 tazobactam [From Zosyn] Allergy Unknown Unknown Unverified 12/06/20 20:09 trimethoprim Allergy Unknown [facility] LIST Verified 12/06/20 20:09 acetaminophen [From Percocet] Allergy Unknown Verified 12/06/20 22:59 amphetamine AdvReac Severe UNKNOWN ON Verified 12/06/20 20:09 LIST dextroamphetamine AdvReac Severe UNKNOWN ON Verified 12/06/20 20:09 LIST hydrochlorothiazide AdvReac Intermediate GI DISTRESS Verified 12/06/20 20:09 methyldopa AdvReac Intermediate GI DISTRESS Verified 12/06/20 20:09 fluoxetine [From Prozac] AdvReac Unknown Hallucinati Unverified 12/06/20 20:09 ng Medications Home Medications Medication Instructions Recorded Confirmed Last Taken multivitamin 1 tab PO QAM 12/26/18 12/06/20 10/01/19 nystatin 100,000 unit/gram topical 1 applic TOPICAL DAILY PRN gm 06/05/19 12/06/20 Unknown powder diclofenac sodium 1 % topical gel 2 gm TOPICAL BID gm 08/03/19 12/06/20 10/01/19 lactobacillus combination no.8 3 3,000 mmu cells PO QAM 08/09/19 12/06/20 10/01/19 billion cell capsule acetaminophen [Tylenol] 325 mg PO QID PRN 10/02/19 12/06/20 10/01/19 325 mg magnesium oxide 400 mg PO QAM 10/02/19 12/06/20 10/01/19 potassium chloride 10 meq PO DAILY PRN 10/02/19 12/06/20 09/22/19 albuterol sulfate 90 mcg/actuation 1 - 2 puff INHALATION QID PRN #18 g 04/03/20 12/06/20 Unknown aerosol inhaler fluoxetine 20 mg capsule 20 mg PO DAILY #90 cap 04/17/20 12/06/20 Unknown fluoxetine 10 mg capsule 10 mg PO DAILY #90 cap 07/22/20 12/06/20 Unknown fluticasone furoate 100 1 inh INH QAM #28 ea 07/22/20 12/06/20 Unknown mcg-vilanterol 25 mcg/dose inhalation powder clopidogrel 75 mg tablet 75 mg PO QAM #90 tab 07/29/20 12/06/20 Unknown docusate sodium 100 mg capsule 100 mg PO BID cap 08/04/20 12/06/20 Unknown ferrous sulfate 325 mg (65 mg 325 mg PO DAILY tab 08/04/20 12/06/20 Unknown iron) tablet atorvastatin 20 mg tablet 20 mg PO QPM #90 tab 09/10/20 12/06/20 Unknown amlodipine 10 mg tablet 10 mg PO QAM #90 tab 09/24/20 12/06/20 Unknown levothyroxine 75 mcg capsule 75 mcg PO DAILY #90 cap 09/24/20 12/06/20 Unknown furosemide 20 mg tablet 40 mg PO DAILY PRN tab 11/10/20 12/06/20 Unknown omeprazole 20 mg tablet,delayed 20 mg PO QAM #90 tab 11/10/20 12/06/20 Unknown release amiodarone 200 mg PO QAM 12/06/20 12/06/20 Unknown metoprolol succinate 25 mg PO DAILY 12/06/20 12/06/20 Unknown Active Medications Generic Name Dose Route Start Last Admin Trade Name Sybil PRN Reason Stop Dose Admin Amiodarone HCl 200 mg 12/07/20 09:00 12/07/20 08:38 Amiodarone 200 Mg Tab PO 01/06/21 08:59 200 mg QAM ROD Administration Amlodipine Besylate 10 mg 12/07/20 09:00 12/07/20 08:39 Amlodipine Besylate 5 Mg Tab PO 01/06/21 08:59 10 mg QAM ROD Administration Atorvastatin Calcium 20 mg 12/06/20 23:07 12/07/20 00:04 Atorvastatin 20 Mg Tab PO 01/05/21 23:06 20 mg QPM ROD Administration Docusate Sodium 100 mg 12/06/20 23:07 12/07/20 08:39 Docusate Sodium 100 Mg Cap PO 01/05/21 23:06 Not Given BID ROD Fluoxetine HCl 10 mg 12/07/20 09:00 12/07/20 08:38 Fluoxetine Hcl 10 Mg Cap PO 01/06/21 08:59 10 mg DAILY ROD Administration Fluoxetine HCl 20 mg 12/07/20 09:00 12/07/20 08:38 Fluoxetine Hcl 20 Mg Cap PO 01/06/21 08:59 20 mg DAILY ROD Administration Fluticasone/Vilanterol 1 puffs 12/07/20 09:00 12/07/20 08:39 Fluticasone/Vilanterol 100/25mcg 14 Puffs/Inhaler INH 01/06/21 08:59 1 puff s QAM ROD Administration Lactated Ringer's 1,000 mls @ 75 mls/hr 12/06/20 23:07 12/07/20 00:09 Lr IV 12/07/20 12:26 75 mls/hr .[id number] ROD Administration Levothyroxine Sodium 75 mcg 12/07/20 06:30 12/07/20 05:37 Levothyroxine Sodium 75 Mcg Tablet PO 01/06/21 06:29 75 mcg DAILYBB ROD Administration Magnesium Oxide 400 mg 12/07/20 09:00 12/07/20 08:39 Magnesium Oxide 400 Mg Tab PO 01/06/21 08:59 400 mg QAM ROD Administration Metoprolol Succinate 25 mg 12/07/20 09:00 12/07/20 08:39 Metoprolol Succ 25mg Ext Rel Tab PO 01/06/21 08:59 25 mg DAILY ROD Administration Oxycodone HCl 5 mg 12/06/20 23:07 12/06/20 23:49 Oxycodone Hcl Ir 5 Mg Tab (Immediate Release) PO 12/20/20 23:06 5 mg Q4H PRN Administration MODERATE Pain (4,5,6) & Pre PT Pantoprazole Sodium 40 mg 12/07/20 09:00 12/07/20 08:38 Pantoprazole 40 Mg Tab PO 01/06/21 08:59 40 mg DAILY ROD Administration NPO Date Last Intake of Fluids: 12/06/20 Time Last Intake of Fluids: 22:55 Date Last Intake of Solids: 12/06/20 Time Last Intake of Solids: 22:55 Past Medical History Medical History A-fib Abscess of abdominal wall Arthritis of right shoulder region Asthma CAD (coronary artery disease) Chronic asthmatic bronchitis Chronic cerebral ischemia Chronic kidney disease, stage 3a Constipation Degenerative arthritis of knee, bilateral Depression with anxiety HTN (hypertension) Hyperlipidemia Hypokalemia Hypothyroidism Infected prosthetic mesh of abdominal wall Metabolic encephalopathy Obstructive sleep apnea, adult Renal mass Stress fracture of sacrococcygeal region Transient ischemic attack Tremor Vertigo Past Family History Family History Mother , age 86 of an [place]. She also had COPD. Myocardial infarction COPD (chronic obstructive pulmonary disease) Father , age 47 of an HI. Myocardial infarction Denies family history of Stroke Past Surgical History Surgical History History of cataract surgery S/P cholecystectomy S/P hernia repair ventral hernia repair S/P hysterectomy Status post fracture of tibia Open treatment of Tibial shaft fracture with plate and screws Social History Smoking Status: Never smoker Hx Alcohol Use: No Hx Substance Use: No substance use type: does not use Last Used Substance: Unknown Last Used Substance Other:: Tramadol in hospital with last admission at [facility]. Uses Tylenol. Physical Exam Vital Signs Last Vital Signs Temp 36.9 C 12/07/20 07:22 Pulse 66 12/07/20 07:22 Resp 16 12/07/20 07:22 BP 158/83 H 12/07/20 07:22 Pulse Ox 96 12/07/20 11:00 Testing Laboratory Results 12/07/20 05:49 12/07/20 05:49 PT 10.5 Seconds (9.0-12.0) 12/06/20 21:54 INR 1.0 (0.9-1.1) 12/06/20 21:54 APTT 22.8 Seconds (21.0-31.0) 12/06/20 21:54 Urine Color Dark Yellow 12/06/20 19:13 Urine Appearance Cloudy (Clear) A 12/06/20 19:13 Urine pH 6.5 (4.5-7.5) 12/06/20 19:13 Ur Specific [place] 1.019 (1.000-1.030) 12/06/20 19:13 Urine Protein 1+ (Negative) H 12/06/20 19:13 Urine Glucose (UA) Negative (Negative) 12/06/20 19:13 Urine Ketones Trace (Negative) H 12/06/20 19:13 Urine Nitrite Negative (Negative) 12/06/20 19:13 Ur Leukocyte Esterase 2+ (Negative) H 12/06/20 19:13 Urine WBC (Auto) >30 /hpf (0-5) H 12/06/20 19:13 Urine RBC (Auto) 0-4 /hpf (0-4) 12/06/20 19:13 U Hyaline Cast (Auto) 5-10 /lpf (0-5) H 12/06/20 19:13 U Epithel Cells (Auto) 0-5 /lpf (0-5) 12/06/20 19:13 Urine Bacteria (Auto) 4+ (Negative) H 12/06/20 19:13 Blood Type O Positive 12/06/20 19:47 Antibody Screen NEGATIVE 12/06/20 19:47 12/06/20 19:13 Urine Culture - Preliminary Urine,Straight Cath Gram negative bacilli Electrocardiogram Date: 12/06/20 Findings: + NSR @ (63) and + NSST changes no significant change versus prior Chest X-Ray Date: 12/06/20 Findings: + NAD and + cardiomegaly Echocardiogram Date: 07/19/19 LV Function: normal Valvular Disease: + AI (mild) and + MR (mod)
[2020-12-07] MEDS ORDERED: LIDOCAINE HCL 2% 2 ML VIAL/AMP(20MG/ML) INFIL ONE (09:47)
[2020-12-07] MEDS ORDERED: PROPOFOL IV EMULSION 10 MG/ML 20 ML VIAL IV ONE (09:47)
[2020-12-07] MEDS ORDERED: NEOSTIGMINE METHYLSULFATE 5 MG/5 ML SYR ONE (09:47)
[2020-12-07] MEDS ORDERED: DEXAMETHASONE SOD INJ 4 MG/ML VIAL ONE (09:47)
[2020-12-07] MEDS ORDERED: ONDANSETRON INJ 2 MG/ML 2 ML VIAL ONE (09:47)
[2020-12-07] MEDS ORDERED: GLYCOPYRROLATE 0.2 MG/ML VIAL ONE (09:47)
[2020-12-07] MEDS ORDERED: fentaNYL citrate 100 MCG/2 ML VIAL ONE (09:48)
[2020-12-07] MEDS ORDERED: SODIUM CHLORIDE 0.9% 250 ML IV PRN (10:01)
[2020-12-07] MEDS ORDERED: LIDOCAINE/EPINEPHRINE 1% 20 ML VIAL ONE (11:37)
[2020-12-07] MEDS ORDERED: BUPIVACAINE 0.5 % 5 MG/1 ML MPF 30ML VIAL ONE (11:37)
[2020-12-07] MEDS ORDERED: HYDROmorphone INJ 1 MG/ML SYRINGE IV PRN (11:50)
[2020-12-07] MEDS ORDERED: ePHEDrine sulfate 50 MG/ML AMP IV PRN (11:50)
[2020-12-07] MEDS ORDERED: ATROPINE SULFATE 0.1 MG/ML 10ML SYR IV PRN (11:50)
[2020-12-07] MEDS ORDERED: TRANEXAMIC ACID / 0.7% NACL 1,000 MG/100 ML BAG IV ONE (11:57)
[2020-12-07] MEDS ORDERED: TRANEXAMIC ACID / 0.7% NACL 1,000 MG/100 ML BAG IV STA (12:00)
[2020-12-07] MEDS ORDERED: TRANEXAMIC ACID / 0.7% NACL 1000MG/100ML BAG IV ONE (12:02)
--- NOTE | 2020-12-07 13:14 | Hospitalist Progress Note ---
Date of Service December 07, 2020 Assessment & Plan (1) Closed left hip fracture: 89yo female with PMHx that includes CAD, COPD (no home oxygen requirement), paroxysmal atrial fibrillation (on Amiodarone/Metoprolol) and chronic HFpEF (last TTE 08/02: EF 50-55%) who was admitted to [facility] on 12/06 for displaced fracture through left femoral neck, s/p mechanical fall. Closed Left Hip Fracture Plavix held before surgery. S/p Left Trey-Arthroplasty on 12/07. Doing well post- operatively; A+Ox3 and hemodynamically stable - PRN Tylenol/Oxycodone/Morphine for pain - PT/OT ordered - started 1/2 maintenance IVFs with LR @60cc/hr - trend CBC daily Asymptomatic Bacteriuria No urinary symptoms prior to hospitalization. Dirty UA and Urine cx positive for GNB - speciation/sensitivities pending. Received prabhu-operative Ancef today for surgery. - follow urine cx for speciation/sensitivities, consider treatment at that point Paroxysmal Atrial Fibrillation Chronic. Patient presently in NSR. - Continue Amiodarone 200mg po daily - Continue Metoprolol 25mg po daily CAD/HFpEF Chronic, well-compensated, appears euvolemic on exam. - Cautious IVFs as mentioned above - monitor clinically for volume overload, stop IVFs +/- PRN Lasix if appears hypervolemic - continue home Atorvastatin, Metoprolol - Plavix held before surgery, will plan to resume tomorrow vs Tuesday pending Ortho recs COPD Chronic, stable. - continue Breo Ellipta - Albuterol PRN Depression with anxiety Chronic, stable. - Continue Fluoxetine 30mg po daily GERD Chronic. Stable - Continue Protonix 40mg po daily Hypothyroidism Chronic, stable. - Continue Synthroid 75mcg po daily Hyperlipidemia Chronic, stable. - Continue Atorvastatin 20mg po qPM HTN Stable. - Continue Metoprolol - Continue Amlodipine FEN/GI - regular diet, LR @60cc/hr for now (d/c once taking in PO) Ppx - SCDs Code - Full code Dispo - med/surg (2) PAF (paroxysmal atrial fibrillation): (3) Depression with anxiety: (4) COPD (chronic obstructive pulmonary disease): (5) GERD (gastroesophageal reflux disease): (6) Hypothyroidism: (7) Hyperlipidemia: (8) CAD (coronary artery disease): (9) CHF (congestive heart failure): (10) HTN (hypertension): Admission and Anticipated Discharge Date Admission Date: December 06, 2020 Supervising Physician Co-Signing Physician Notes I also saw the patient concurrent the resident physician and agree with the impression and plan as noted in the resident documentation. The patient is seen in the postoperative recovery area. She is appropriately somewhat confused as she is coming out of the sedation. She is hemodynamically stable. She denies pain at current. Exam 126/69, 62, 18, 36.8, 99% on nasal cannula 1 L/min Data WBC 13.05, hemoglobin 10.9. Sodium 137, potassium 4.9, BUN 33, creatinine 1.09 AST 40, ALT 46, alkaline phosphatase 104. PCR for COVID-19, influenza type A/type B, and RSV are all negative. Imaging showed an impacted and displaced fracture through the left femoral neck. Chest x-ray demonstrated cardiomegaly and chronic parenchymal changes. Urine culture from 12/06 showing growth of gram-negative bacilli, sensitivities are pending. Impression and plan Left hip fracture, postoperative day 0 status post left hemiarthroplasty Paroxysmal atrial fibrillation, in normal sinus upon admission Urinary tract infection, speciation and sensitivities pending CHF COPD, stable upon admission Coronary artery disease, quiescent Repeat CBC and BMP in AM Patient received Ancef pre and postoperative today Will await urine culture speciation and sensitivities She has multiple medical comorbidities but all stable upon presentation additional medical diagnoses/plan as noted in the resident documentation Subjective Patient reports that pain is controlled with medications. Denies urinary symptoms prior to hospitalization. Denies fever/chills, chest pain, palpitations, SOB, N/V, abdominal pain. Review of Systems Review of Systems: Pertinent positives and negatives mentioned in HPI. Physical Exam Physical Exam: General: A&Ox3. NAD. Cooperative. HEENT: Atraumatic, normocephalic. Pulm: Decreased air entry bilaterally. -wheezes, -rales, -rhonchi. Symmetrical chest rise. No increase work of breathing. No respiratory distress. Cardiac: RRR, -mrg. Radial pulses intact and symmetrical. Abdominal: soft, non-tender, non-distended, BS x 4 Skin: warm, dry Results & Data Results & Data ([facility]) Vital Signs (Past 12 Hours) Vital Signs Temp Pulse Pulse Resp BP Pulse Ox Pulse Ox 12/07/20 11:00 96 12/07/20 07:22 36.9 C 66 16 158/83 H 98 12/07/20 03:23 64 20 94 Resident Activity Tracking Resident Involvement: Resident Care Provided Care Provided: Adult Hospital Medicine (1) CAD (coronary artery disease) Associated angina: without angina Coronary Disease-Associated Artery/Lesion type: [place] artery [place] vs. transplanted heart: [place] heart Qualified Code(s): I25.10 - Atherosclerotic heart disease of [place] coronary artery without angina pectoris (2) CHF (congestive heart failure) Heart failure chronicity: acute Heart failure type: unspecified Qualified Code(s): I50.9 - Heart failure, unspecified (3) Hyperlipidemia Hyperlipidemia type: mixed hyperlipidemia Qualified Code(s): E78.2 - Mixed hyperlipidemia (4) Hypothyroidism Hypothyroidism type: acquired Qualified Code(s): E03.9 - Hypothyroidism, unspecified (5) COPD (chronic obstructive pulmonary disease) COPD type: COPD with acute exacerbation Qualified Code(s): J44.1 - Chronic obstructive pulmonary disease with (acute) exacerbation (6) GERD (gastroesophageal reflux disease) Esophagitis presence: esophagitis presence not specified Qualified Code(s): K 21.9 - Gastro-esophageal reflux disease without esophagitis (7) HTN (hypertension) Hypertension type: essential hypertension Qualified Code(s): I10 - Essential (primary) hypertension (8) Closed left hip fracture Encounter type: initial encounter Qualified Code(s): S72.002A - Fracture of unspecified part of neck of left femur, initial encounter for closed fracture
--- NOTE | 2020-12-07 15:24 | Post Operative Brief Note ---
Immediate Post Op Note v1 Date of Surgery December 07, 2020 Pre & Post Diagnosis Operation Date: 12/07/20 10:30 Pre-Op Diagnosis: Left hip fracture Post-Op Diagnosis: Left hip fracture I identified the patient and participated in the time-out.: Yes Procedure Operation Date: 12/07/20 10:30 Actual Procedures p Left Hip Trey-Arthroplasty(Left) - Gallito Vale MD Surgeon Gallito Vale MD Sheriff Deputy Niyah Hdz MD Estimated Blood Loss 150 Findings See Below Comminuted, displaced, 4 part femoral neck fracture Fluids 1700 cc Specimens Left hip contents Drains Marie Catheter Anesthesia Type General Complications none
--- NOTE | 2020-12-07 15:24 | Operative Report ---
Post Operative Report Pre & Post Diagnosis Operation Date: 12/07/20 10:30 Pre-Op Diagnosis: Left hip fracture Post-Op Diagnosis: Left hip fracture I identified the patient and participated in the time-out.: Yes Procedure Operation Date: 12/07/20 10:30 Actual Procedures p Left Hip Trey-Arthroplasty(Left) - Gallito Vale MD Surgeon Gallito Vale MD Leaf Conditioner Niyah Hdz MD Estimated Blood Loss 150 Findings See Below Comminuted, displaced, 4 part femoral neck fracture Fluids 1750 cc Specimens Left hip contents Drains Marie & Prevena incisional wound vac. 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 After orthopedic consult discussing the patients treatment options of conservative versus surgical intervention, she agreed for a planned hemiarthroplasty. Since the patient was ambulatory prior to the injury and to avoid the risks of bed sores, pulmonary complications, and to give the patient the best chance for ambulation, I recommended surgery. The patient understands the risks of surgery, which incl ude but are not limited to: bleeding, infection, re-operation, damage to nerves and arteries, continued pain, failure of the hardware, dislocation, DVT, and . In addition the patient is aware of the 20-30% morbidity associated with hip fracture for up to 1 year following a hip fracture. The patient understands all of these instructions and explanations, all of their questions have been satisfactorily addressed. The patient has elected to proceed with surgery and the informed consent was signed. Description of Procedure IMPLANTS: 1) CRC, Size 13 x 210 with 10 mm Calcar augment, Cemented (Biomet). 2) Femoral Head 28mm Diameter, - 3.5 mm Neck Length. 3) 44 mm Multipolar Bipolar Cup. 4) 28 mm ID Liner, Multipolar Bipolar Cup. 5) Distal Centralizer 12 mm. 6) Simplex cement 2 (Styker). 7) Cables x 2 (Kalia/Biomet) PROCEDURE: The patient was taken to the Operating Room and placed in the lateral position with a amezcua bag following general anesthesia administration. A multidisciplinary time-out was performed identifying my initials on the left lower limb as the correct and operative limb. Prior to the incision being made, 1 gram of intravenous Ancef were given. The left lower extremity was prepped in the standard fashion. The trochanter was marked as was the planned incision 1/3 proximal and 2/3 distal to the tip of the greater trochanter. The incisions were injected with a 50:50 mixture of 1% Lidocaine epi and 0.5% Bupivacaine plain for a total of 10cc. A standard posterior approach was made. The planned incision was carried down through the Tensor Fascia Monica, which was then split in-line with its fibers. The Gluteus Yogesh was bluntly dissected. The Piriformis and short external rotators were dissected off the capsule and femur and tagged for later repair. The fracture was easily identified as it had impaled the posterior capsule quadratus muscle. The capsule was incised and freed off the fracture fragments. The Neck cut was made to allow removal of the femoral head and comminuted fragments. The Trochanter was split longitudinally to the calcar and the calcar was comminuted. A Cable was placed inferior to calcar. Another Cable was placed around fragment of the calcar and Trochanter split under the vastus lateralis. The femoral canal was prepared with sequentially broached and distal reamers in the standard fashion, and trial heads were placed. Due to the lack of the calcar a longer stem was chosen, with 10 mm calcar augment. Fluoroscopy was brought in to ensure adequate proper alignment, fill of the canal, head size, and leg length. The trial components were removed and the wound and femoral canal were copiously irrigated and dried. The femur was cemented using 3rd generation technique and using #2 FiberWire, the Trochanter split was further secured to the prothesis through drill hole in the Trochanter and holes in the prothesis. The remaining components were placed in the standard fashion and the hip reduced. There was excellent stability with no sense of dislocation with 30 degrees adduction, flexion 90 degrees, and internal rotation to 40 degrees. The wounds were copiously irrigated. The External rotators and capsule were closed over bon bridges with #2 FiberWire. The Tensor Fascia Monica was closed with #1 Vicryl. The subcutaneous fat had a few stay sutures placed using 0 Vicryl. The subcutaneous tissue was closed with 3-0 Vicryl. The skin was closed with Zipline and shield. The incisions were covered with Prevena. The patient was transfer to her hospital bed and taken to the PACU in stable condition. The sponge and needle counts were correct. Post-op Instructions: The patient was admitted to back to the Med/Surg floor. Final x-rays will be obtained in the PACU showed the cemented components in good position and located hip. The patient will be WBAT with a walker. The patient will be seen by PT/OT. The patient's labs will be checked in the am. DVT prophylaxis will be with TEDs, mechanical devices and will ASA in the AM. I attest to the content of the Intraoperative Record and any orders documented therein. Any exceptions are noted below.
--- NOTE | 2020-12-07 15:34 | XRay Report ---
XR hip LT 1V CLINICAL HISTORY: hip hemiarthroplasty. COMPARISON: Left hip radiographs December 06, 2020. FINDINGS: Left hip arthroplasty is noted with cerclage wires within the left femur. Expected postsur gical findings are noted. IMPRESSION: Intraoperative radiographs performed during left hip arthroplasty. ACT 112: Negative or not required by law. Electronically signed by: Guilherme Martinez M.D. 12/07/2020 3:33 PM
[2020-12-07] MEDS ORDERED: NALOXONE HCL 0.4 MG/1 ML VIAL/CARP IV PRN (16:22)
[2020-12-07] MEDS: LACTATED RINGER'S 1,000 ML IV SCH (16:58)
--- NOTE | 2020-12-07 17:49 | XRay Report ---
XR hip LT min 2V CLINICAL HISTORY: Post-Operative long implant, long cassette COMPARISON: Left hip radiographs December 06, 2020. FINDINGS: Alignment of the long stem left hip hemiarthroplasty is anatomic. Cerclage wires of the pr oximal left femur are noted. There are no unexpected radiopaque foreign bodies. Expected postoperativ e findings are noted. IMPRESSION: Postoperative findings consistent with long stem left hip hemiarthroplasty. ACT 112: Negative or not required by law. Electronically signed by: Guilherme Martinez M.D. 12/07/2020 5:48 PM
[2020-12-07] MEDS ORDERED: ceFAZolin 1000MG 1,000 MG/7.5 ML SYR IV ONE (18:00)
--- NOTE | 2020-12-07 18:21 | Anesthesiology Progress Note ---
Date of Service December 07, 2020 Anesthesia Post Procedure Vital Signs Vital Signs: Temp Pulse Pulse Pulse Resp BP BP 12/07/20 17:31 36.6 C 64 16 12/07/20 17:00 62 18 12/07/20 16:30 36.8 C 68 18 12/07/20 16:10 36.9 C 64 16 12/07/20 16:00 67 22 12/07/20 15:50 69 18 12/07/20 15:40 70 24 12/07/20 15:31 36.3 C L 66 20 12/07/20 11:00 12/07/20 07:22 36.9 C 66 16 158/83 H 12/07/20 03:23 64 20 12/07/20 00:03 72 18 12/06/20 23:12 36.6 C 67 18 169/85 H 12/06/20 21:31 66 24 181/89 H 12/06/20 21:30 66 24 12/06/20 21:15 66 24 181/84 H 12/06/20 21:01 66 25 H 171/83 H 12/06/20 21:00 66 23 12/06/20 20:46 64 22 12/06/20 20:45 65 24 178/80 H 12/06/20 20:30 62 21 177/78 H 12/06/20 20:15 63 25 H 178/76 H 12/06/20 20:00 62 24 171/80 H 12/06/20 19:52 62 24 177/83 H 12/06/20 19:45 62 24 12/06/20 19:31 63 24 12/06/20 19:30 63 25 H 204/97 H 12/06/20 19:16 63 25 H 191/84 H 12/06/20 19:15 65 22 12/06/20 19:07 65 20 12/06/20 19:05 65 21 191/100 H 12/06/20 19:02 36.9 C 66 191/100 H BP Pulse Ox Pulse Ox 12/07/20 17:31 112/63 98 12/07/20 17:00 126/69 99 12/07/20 16:30 115/63 99 12/07/20 16:10 129/58 L 99 12/07/20 16:00 125/65 98 12/07/20 15:50 127/73 97 04/25/21 15:40 142/69 H 98 12/07/20 15:31 164/74 H 100 12/07/20 11:00 96 12/07/20 07:22 98 12/07/20 03:23 94 12/07/20 00:03 96 12/06/20 23:12 96 12/06/20 21:31 97 12/06/20 21:30 98 12/06/20 21:15 98 12/06/20 21:01 97 12/06/20 21:00 98 12/06/20 20:46 97 12/06/20 20:45 98 12/06/20 20:30 98 12/06/20 20:15 98 12/06/20 20:00 95 12/06/20 19:52 98 12/06/20 19:45 97 12/06/20 19:31 98 12/06/20 19:30 98 12/06/20 19:16 97 12/06/20 19:15 96 12/06/20 19:07 98 12/06/20 19:05 97 12/06/20 19:02 Pain Intensity Left Hip: Pain Intensity: 3 Transfer of Care Handoff Completed per policy Notes Mental Status: alert / awake / arousable Patient Amnestic to Procedure: Yes Nausea / Vomiting: adequately controlled Pain: adequately controlled Airway Patency, RR, SpO2: stable & adequate BP & HR: stable & adequate Hydration State: stable & adequate Anesthetic Complications: no major complications apparent
[2020-12-07] MEDS: DOCUSATE SODIUM/SENNA 50/8.6MG TAB PO SCH (20:17)
[2020-12-08] MEDS: ACETAMINOPHEN 325 MG TAB PO PRN (00:04)
[2020-12-08] MEDS: oxyCODONE HCL IR 5 MG TAB (IMMEDIATE RELEASE) PO PRN ×2 (00:04→08:30)
[2020-12-08] MEDS: ceFAZolin 1000MG 1,000 MG/7.5 ML SYR IV SCH ×4 (00:04→23:03)
[2020-12-08] MEDS: LEVOTHYROXINE SODIUM 75 MCG TABLET PO SCH (06:06)
[2020-12-08 06:29] LABS: Hematocrit (blood only) 21.7 % (37-47); Hemoglobin 7.4 g/dL (12.0-16.0); Mean Corpuscular Hemoglobin 32.2 pg (25-34); Mean Corpuscular Hgb Conc 34.1 g/dL (32-36); Mean Corpuscular Volume 94.3 fL (80-100); Mean Platelet Volume 8.6 fL (7.4-10.4); Platelet Count 162 K/uL (130-400); RDW Coefficient of Variation 15.2 % (11.5-14.5); RDW Standard Deviation 52.2 fL (36.4-46.3)
[2020-12-08 07:11] LABS: BUN Creatinine Ratio 24.5 (10-20); Basophils # (auto) 0.01 K/uL (0-0.2); Basophils % (auto) 0.1 %; Calcium 8.3 mg/dl (8.5-10.1); Creatinine Clr Calc Pharmacy 22.5 ml/min; Est GFR (African American) 31.8; Est GFR (Non-African American) 27.4; Immature Granulocytes # (auto) 0.07 K/uL (0.00-0.02); Immature Granulocytes % (auto) 0.5 %; Lymphocytes # (auto) 0.62 K/uL (1.2-3.4); Lymphocytes % (auto) 4.7 %; Magnesium 2.6 mg/dl (1.8-2.4); Monocytes # (auto) 1.29 K/uL (0.11-0.59); Monocytes % (auto) 9.8 %; Neutrophils # (auto) 11.21 K/uL (1.4-6.5); Neutrophils % (auto) 84.9 %; Phosphorus 5.6 mg/dl (2.5-4.9); Potassium 5.4 mmol/L (3.5-5.1); RBC Morphology Unremarkable
--- NOTE | 2020-12-08 07:23 | Operative Report ---
Post Operative Report Pre & Post Diagnosis Operation Date: 12/07/20 10:30 Pre-Op Diagnosis: Left hip fracture Post-Op Diagnosis: Left hip fracture I identified the patient and participated in the time-out.: Yes Procedure Operation Date: 12/07/20 10:30 Actual Procedures p Left Hip Trey-Arthroplasty(Left) - Gallito Vale MD Surgeon Gallito Vale MD Incubator Machine Operator Niyah Hdz MD Estimated Blood Loss 150 Findings Consistent with Post-Op Diagnosis Specimens femoral head Anesthesia Type General Complications none Disposition Accompanied Patient To Recovery: Yes Disposition: Recovery Room Description of Procedure as per 's note, I assisted in prepping and draping, instruments handling, certain parts of the procedure and wound closure, I attest to the content of the Intraoperative Record and any orders documented therein. Any exceptions are noted below.
--- NOTE | 2020-12-08 07:51 | Hospitalist Progress Note ---
Date of Service December 08, 2020 Assessment & Plan (1) Closed left hip fracture: 89yo female with PMHx that includes CAD, COPD (no home oxygen requirement), paroxysmal atrial fibrillation (on Amiodarone/Metoprolol) and chronic HFpEF (last TTE 08/02: EF 50-55%) who was admitted to [facility] on 12/06 for displaced fracture through left femoral neck, s/p mechanical fall. Acute Blood Loss Anemia -Hemoglobin down to 7.4 this morning -Likely secondary to hip fracture and some surgical losses -Patient with new onset ROXANNA possibly secondary to blood loss -Plan to transfuse with 2 units PRBCs today -Trend CBC Acute Kidney Injury -Continue LR at 60 cc/h -Monitor for signs of fluid overload in the setting of HFpEF -Encourage p.o. intake -Daily BMP Closed Left Hip Fracture Plavix held before surgery. S/p Left Trey-Arthroplasty on 12/07. Doing well post- operatively - PRN Tylenol/Oxycodone/Morphine for pain - PT/OT ordered - 1/2 maintenance IVFs with LR @60cc/hr - trend CBC daily Asymptomatic Bacteriuria - No urinary symptoms prior to hospitalization - Dirty UA and Urine cx positive for pansensitive Klebsiella - Received prabhu-operative Ancef today for surgery - follow urine cx for speciation/sensitivities, consider treatment at that point Paroxysmal Atrial Fibrillation Chronic. Patient presently in NSR. - Continue Amiodarone 200mg po daily - Continue Metoprolol 25mg po daily CAD/HFpEF Chronic, well-compensated, appears euvolemic on exam. - Cautious IVFs as mentioned above - monitor clinically for volume overload, stop IVFs +/- PRN Lasix if appears hypervolemic - continue home Atorvastatin, Metoprolol - Plavix held before surgery, will plan to resume tomorrow vs Tuesday pending Ortho recs COPD Chronic, stable. - continue Breo Ellipta - Albuterol PRN Depression with anxiety Chronic, stable. - Continue Fluoxetine 30mg po daily GERD Chronic. Stable - Continue Protonix 40mg po daily Hypothyroidism Chronic, stable. - Continue Synthroid 75mcg po daily Hyperlipidemia Chronic, stable. - Continue Atorvastatin 20mg po qPM HTN Stable. - Continue Metoprolol - Continue Amlodipine FEN/GI - regular diet, LR @60cc/hr for now Ppx - SCDs Code - Full code Dispo - med/surg (2) PAF (paroxysmal atrial fibrillation): (3) Depression with anxiety: (4) COPD (chronic obstructive pulmonary disease): (5) GERD (gastroesophageal reflux disease): (6) Hypothyroidism: (7) Hyperlipidemia: (8) CAD (coronary artery disease): (9) CHF (congestive heart failure): (10) HTN (hypertension): Admission and Anticipated Discharge Date Admission Date: December 06, 2020 Supervising Physician Co-Signing Physician Notes I personally examined the patient and verified all logan points of history and exam, discussed case, and agree with decision making with Dr Dowd. Seems to be somewhat confused. Notes her hip hurts. No other new complaints. Vitals noted, in general she is awake and alert but does seem to be easily confused. HEENT normocephalic atraumatic mucous membranes moist. Breathing unlabored no accessory muscle use good effort. Skin shows no rashes no pallor or icterus. No focal neuro deficits. Hip fracturepresumed osteoporoticnow postop. PT/OT. Outpatient bone health evaluation and treatment. Deliriumreassurance/supportive care Acute blood loss anemiarelated to hip fracturegiven this and ROXANNA/ARF will transfuse. Follow closely. ROXANNA/ARFlikely due to blood loss related to the hip fracturetransfuse and foll ow. Otherwise as above. Subjective Patient seen at bedside this morning, sitting up comfortably. Reports she is not yet had anything to eat but will have breakfast, which is in front of her as some talking to her. She also says she did not drink anything overnight, but is drinking water while I am in the room. Mentions that she was a little sore yesterday but is in no pain today. Denies chest pain, palpitations, shortness of breath, lightheadedness, fatigue, dizziness, urinary symptoms, fever, nausea, vomiting. Review of Systems Review of Systems: All systems reviewed & are unremarkable except as noted in Subjective Physical Exam Physical Exam: General: A&Ox3. NAD. Cooperative. HEENT: Atraumatic, normocephalic. Pulm: Decreased air entry bilaterally. -wheezes, -rales, -rhonchi. Symmetrical chest rise. No increase work of breathing. No respiratory distress. Cardiac: RRR, -mrg. Radial pulses intact and symmetrical. Abdominal: soft, non-tender, non-distended, BS x 4 Skin: warm, dry, left hip dressing is clean, dry and intact Results & Data Results & Data ([facility]) Vital Signs (Past 12 Hours) Vital Signs Temp Pulse Pulse Resp BP Pulse Ox 12/08/20 07:01 36.7 C 78 18 117/64 99 12/08/20 03:45 36.5 C 77 16 103/68 97 12/08/20 02:22 81 18 96 12/07/20 22:59 36.5 C 72 16 114/68 94 12/07/20 21:34 68 18 97 Resident Activity Tracking Resident Involvement: Resident Care Provided Care Provided: Adult [facility] Medicine (1) CAD (coronary artery disease) Associated angina: without angina Coronary Disease-Associated Artery/Lesion type: [place] artery [place] vs. transplanted heart: [place] heart Qualified Code(s): I25.10 - Atherosclerotic heart disease of [place] coronary artery without angina pectoris (2) CHF (congestive heart failure) Heart failure chronicity: acute Heart failure type: unspecified Qualified Code(s): I50.9 - Heart failure, unspecified (3) Hyperlipidemia Hyperlipidemia type: mixed hyperlipidemia Qualified Code(s): E78.2 - Mixed hyperlipidemia (4) Hypothyroidism Hypothyroidism type: acquired Qualified Code(s): E03.9 - Hypothyroidism, unspecified (5) COPD (chronic obstructive pulmonary disease) COPD type: COPD with acute exacerbation Qualified Code(s): J44.1 - Chronic obstructive pulmonary disease with (acute) exacerbation (6) GERD (gastroesophageal reflux disease) Esophagitis presence: esophagitis presence not specified Qualified Code(s): K21.9 - Gastro-esophageal reflux disease without esophagitis (7) HTN (hypertension) Hypertension type: essential hypertension Qualified Code(s): I10 - Essential (primary) hypertension (8) Closed left hip fracture Encounter type: initial encounter Qualified Code(s): S72.002A - Fracture of unspecified part of neck of left femur, initial encounter for closed fracture
--- NOTE | 2020-12-08 08:12 | Orthopedic Progress Note ---
Date of Service December 08, 2020 Assessment & Plan (1) Closed left hip fracture: POD #1 s/p Left hip hemiarthroplasty, doing as well as expected. Resume diet. WBAT with walker, likely need assistance as well. OOB to chair. Continue pain control. Continue Prevena drressing. Continue care per primary service. Acute anemia blood loss, Hgb 7.4, will discuss possible transfusion with primary service. DVT prophylaxis: TEDs 3 weeks, foot pumps while in hospital, ASA 81 mg BID for 6 weeks. PT/OT. D/C planning. Admission and Anticipated Discharge Date Admission Date: December 06, 2020 Subjective Left hip pain Review of Systems Review of Systems: All systems reviewed & are unremarkable except as noted in HPI & below Physical Exam Physical Exam: LLE: Wiggling toes and ankle. Sensation to light touch intact. BCR < 2sec. calf soft and non-tender. + TTP left hip/groinDressing clean, dry, intact. Abduction pillow in place Results & Data ([facility]) Vital Signs (Past 12 Hours) Vital Signs Temp Pulse Pulse Resp BP Pulse Ox 12/08/20 07:01 36.7 C 78 18 117/64 99 12/08/20 03:45 36.5 C 77 16 103/68 97 12/08/20 02:22 81 18 96 12/07/20 22:59 36.5 C 72 16 114/68 94 12/07/20 21:34 68 18 97 Laboratory Results 12/08/20 12/08/20 12/06/20 Range/Units 05:55 05:55 19:47 WBC 13.20 H (4.8-10.8) K/uL RBC 2.30 L (4.2-5.4) M/uL Hgb 7.4 L D (12.0-16.0) g/dL Hct 21.7 L (37-47) % MCV 94.3 (80-100) fL MCH 32.2 (25-34) pg MCHC 34.1 (32-36) g/dL RDW Std Deviation 52.2 H (36.4-46.3) fL RDW Coeff of Elliot 15.2 H (11.5-14.5) % Plt Count 162 (130-400) K/uL MPV 8.6 (7.4-10.4) fL Immature Gran % (Auto) 0.5 % Neut % (Auto) 84.9 % Lymph % (Auto) 4.7 % [place] % (Auto) 9.8 % Eos % (Auto) 0.0 % Baso % (Auto) 0.1 % Neut # (Auto) 11.21 H (1.4-6.5) K/uL Lymph # (Auto) 0.62 L (1.2-3.4) K/uL [place] # (Auto) 1.29 H (0.11-0.59) K/uL Eos # (Auto) 0.00 (0-0.5) K/uL Baso # (Auto) 0.01 (0-0.2) K/uL Immature Gran # (Auto) 0.07 H (0.00-0.02) K/uL RBC Morphology Unremarkable Sodium 138 (136-145) mmol/L Potassium 5.4 H (3.5-5.1) mmol/L Chloride 108 H (98-107) mmol/L Carbon Dioxide 25 (21-32) mmol/L Anion Gap 5.0 (3-11) BUN 40 H (7-18) mg/dl Creatinine 1.64 H D (0.6-1.2) mg/dl Est Cr Clr Drug Dosing 22.5 ml/min Est GFR ( Amer) 31.8 Est GFR (Non-Af Amer) 27.4 BUN/Creatinine Ratio 24.5 H (10-20) Glucose 128 H (70-99) mg/dl Calcium 8.3 L D (8.5-10.1) mg/dl Phosphorus 5.6 H (2.5-4.9) mg/dl Magnesium 2.6 H (1.8-2.4) mg/dl Blood Type O Positive Antibody Screen NEGATIVE Crossmatch See Detail (1) Closed left hip fracture Encounter type: initial encounter Qualified Code(s): S72.002A - Fracture of unspecified part of neck of left femur, initial encounter for closed fracture
[2020-12-08] MEDS: LACTATED RINGER'S 1,000 ML IV SCH (08:21)
[2020-12-08] MEDS: FLUTICASONE/VILANTEROL 100/25MCG 14 PUFFS/INHALER INH SCH (08:23)
[2020-12-08] MEDS: METOPROLOL SUCC 25MG EXT REL TAB PO SCH (08:25)
[2020-12-08] MEDS: amLODIPine BESYLATE 5 MG TAB PO SCH (08:25)
[2020-12-08] MEDS: PANTOprazole 40 MG TAB PO SCH (08:25)
[2020-12-08] MEDS: AMIODARONE 200 MG TAB PO SCH (08:26)
[2020-12-08] MEDS: ASPIRIN 81 MG ECTAB PO SCH (08:26)
[2020-12-08] MEDS: MAGNESIUM OXIDE 400 MG TAB PO SCH (08:26)
[2020-12-08] MEDS: FLUoxetine HCL 20 MG CAP PO SCH (08:26)
[2020-12-08] MEDS: CLOPIDOGREL BISULFATE 75 MG TAB PO SCH (08:26)
[2020-12-08] MEDS: DOCUSATE SODIUM 100 MG CAP PO SCH ×2 (08:26→20:52)
[2020-12-08] MEDS: FLUoxetine HCL 10 MG CAP PO SCH (08:26)
[2020-12-08] MEDS ORDERED: SODIUM CHLORIDE 0.9% 250 ML IV PRN (11:32)
--- NOTE | 2020-12-08 18:07 | Billing Data ---
Date of Service December 08, 2020 Coding Level of Care Code 14906 Subseq Hosp Care Lvl 3
[2020-12-08] MEDS: DOCUSATE SODIUM/SENNA 50/8.6MG TAB PO SCH (20:53)
[2020-12-08] MEDS: ATORVASTATIN 20 MG TAB PO SCH (20:53)
[2020-12-09] MEDS: LEVOTHYROXINE SODIUM 75 MCG TABLET PO SCH (05:21)
[2020-12-09 07:15] LABS: Hematocrit (blood only) 26.7 % (37-47); Hemoglobin 9.1 g/dL (12.0-16.0); Mean Corpuscular Hemoglobin 30.6 pg (25-34); Mean Corpuscular Hgb Conc 34.1 g/dL (32-36); Mean Corpuscular Volume 89.9 fL (80-100); Mean Platelet Volume 8.8 fL (7.4-10.4); Platelet Count 131 K/uL (130-400); RDW Coefficient of Variation 16.4 % (11.5-14.5); RDW Standard Deviation 53.7 fL (36.4-46.3); Red Blood Count 2.97 M/uL (4.2-5.4); White Blood Count 10.88 K/uL (4.8-10.8)
[2020-12-09 07:16] LABS: Basophils # (auto) 0.02 K/uL (0-0.2); Basophils % (auto) 0.2 %; Eosinophils # (auto) 0.04 K/uL (0-0.5); Eosinophils % (auto) 0.4 %; Immature Granulocytes # (auto) 0.13 K/uL (0.00-0.02); Immature Granulocytes % (auto) 1.2 %; Lymphocytes # (auto) 0.71 K/uL (1.2-3.4); Lymphocytes % (auto) 6.5 %; Monocytes # (auto) 0.93 K/uL (0.11-0.59); Monocytes % (auto) 8.5 %; Neutrophils # (auto) 9.05 K/uL (1.4-6.5); Neutrophils % (auto) 83.2 %
[2020-12-09 07:17] LABS: BUN Creatinine Ratio 34.2 (10-20); Calcium 8.4 mg/dl (8.5-10.1); Creatinine Clr Calc Pharmacy 29.1 ml/min; Est GFR (African American) 43.3; Est GFR (Non-African American) 37.4; Potassium 4.6 mmol/L (3.5-5.1)
--- NOTE | 2020-12-09 07:37 | Hospitalist Progress Note ---
Date of Service December 09, 2020 Assessment & Plan (1) Closed left hip fracture: 89yo female with PMHx that includes CAD, COPD (no home oxygen requirement), paroxysmal atrial fibrillation (on Amiodarone/Metoprolol) and chronic HFpEF (last TTE 08/02: EF 50-55%) who was admitted to [facility] on 12/06 for displaced fracture through left femoral neck, s/p mechanical fall. Acute Blood Loss Anemia -Secondary to hip fracture and some surgical losses -Transfused with 2 units PRBCs yesterday -Hemoglobin back up to 9.1 today from 7.4 yesterday -Continues to be hemodynamically stable -Trend CBC Acute Kidney Injury -Creatinine trending down this morning, likely that ROXANNA was related to acute blood loss anemia and is now resolving after transfusion -Discontinue IV fluids -Continue to encourage p.o. intake -Daily BMP Closed Left Hip Fracture Plavix held before surgery. S/p Left Trey-Arthroplasty on 12/07. Doing well post- operatively - PRN Tylenol/Oxycodone/Morphine for pain - PT/OT follow recommendations regarding discharge dispo - trend CBC daily Asymptomatic Bacteriuria - Dirty UA and Urine cx positive for pansensitive Klebsiella - Received prabhu-operative Ancef prior to surgery -Patient remains asymptomatic from urinary standpoint so no treatment indicated Paroxysmal Atrial Fibrillation Chronic. Patient presently in NSR. - Continue Amiodarone 200mg po daily - Continue Metoprolol 25mg po daily CAD/HFpEF Chronic, well-compensated, appears euvolemic on exam. - IV fluids discontinued today - PRN Lasix if appears hypervolemic - continue home Atorvastatin, Metoprolol - Plavix on hold prior to surgery, continue to hold in the setting of her acute blood loss anemia COPD Chronic, stable. - continue Breo Ellipta - Albuterol PRN Depression with anxiety Chronic, stable. - Continue Fluoxetine 30mg po daily GERD Chronic. Stable - Continue Protonix 40mg po daily Hypothyroidism Chronic, stable. - Continue Synthroid 75mcg po daily Hyperlipidemia Chronic, stable. - Continue Atorvastatin 20mg po qPM HTN Stable. - Continue Metoprolol - Continue Amlodipine FEN/GI - regular diet Ppx - SCDs Code - Full code Dispo - med/surg, discharge disposition pending PT eval and case management referrals (2) PAF (paroxysmal atrial fibrillation): (3) Depression with anxiety: (4) COPD (chronic obstructive pulmonary disease): (5) GERD (gastroesophageal reflux disease): (6) Hypothyroidism: (7) Hyperlipidemia: (8) CAD (coronary artery disease): (9) CHF (congestive heart failure): (10) HTN (hypertension): Admission and Anticipated Discharge Date Admission Date: December 06, 2020 Supervising Physician Co-Signing Physician Notes I personally examined the patient and verified all logan points of history and exam, discussed case, and agree with decision making with Dr Dowd. Feeling better, brighter today. No significant complaints whenever I see her. Had not yet worked with therapy. Later worked with PT, which confirmed need for ongoing rehab type care. Vitals noted, in general she is awake and alert and in no distress. HEENT normocephalic atraumatic mucous membranes moist. Breathing unlabored no accessory muscle use good effort. Skin shows no rashes no pallor or icterus. No focal neuro deficits. Hip fracturepresumed osteoporoticnow postop. PT/OT. Outpatient bone health evaluation and treatment. Stable for SNF once approved/bed available Deliriumreassurance/supportive care, appears better in this regard today Acute blood loss anemiarelated to hip fracturegiven this and ROXANNA/ARF was given transfusion of 2 units PRBCshemoglobin juaquin appropriately ROXANNA/ARFlikely due to blood loss related to the hip fracturehas improved with transfusion Otherwise as above. Subjective Patient doing well this morning. She is alert and answers orientation questions appropriately except for year, however she does seem to be somewhat confused. Reports mild hip tenderness. Otherwise feeling well, denies other symptoms. Review of Systems Review of Systems: All systems reviewed & are unremarkable except as noted in Subjective Physical Exam Physical Exam: General: A&Ox2. NAD. Cooperative. HEENT: Atraumatic, normocephalic. Pulm: Decreased air entry bilaterally. -wheezes, -rales, -rhonchi. Symmetrical chest rise. No increase work of breathing. No respiratory distress. Cardiac: RRR, -mrg. Radial pulses intact and symmetrical. Abdominal: soft, non-tender, non-distended, BS x 4 Skin: warm, dry, left hip dressing is clean, dry and intact Results & Data Results & Data ([facility]) Vital Signs (Past 12 Hours) Vital Signs Temp Pulse Pulse Resp BP BP Pulse Ox 12/09/20 07:14 36.5 C 74 16 151/70 H 90 12/09/20 03:08 66 20 95 12/08/20 23:35 61 21 93 12/08/20 22:33 36.4 C L 76 16 126/71 94 Resident Activity Tracking Resident Involvement: Resident Care Provided Care Provided: Adult Hospital Medicine (1) CAD (coronary artery disease) Associated angina: without angina Coronary Disease-Associated Artery/Lesion type: [place] artery [place] vs. transplanted heart: [place] heart Qualified Code(s): I25.10 - Atherosclerotic heart disease of [place] coronary artery without angina pectoris (2) CHF (congestive heart failure) Heart failure chronicity: acute Heart failure type: unspecified Qualified Code(s): I50.9 - Heart failure, unspecified (3) Hyperlipidemia Hyperlipidemia type: mixed hyperlipidemia Qualified Code(s): E78.2 - Mixed hyperlipidemia (4) Hypothyroidism Hypothyroidism type: acquired Qualified Code(s): E03.9 - Hypothyroidism, unspecified (5) COPD (chronic obstructive pulmonary disease) COPD type: COPD with acute exacerbation Qualified Code(s): J44.1 - Chronic obstructive pulmonary disease with (acute) exacerbation (6) GERD (gastroesophageal reflux disease) Esophagitis presence: esophagitis presence not specified Qualified Code(s): K21.9 - Gastro-esophageal reflux disease without esophagitis (7) HTN (hypertension) Hypertension type: essential hypertension Qualified Code(s): I10 - Essential (primary) hypertension (8) Closed left hip fracture Encounter type: initial encounter Qualified Code(s): S72.002A - Fracture of unspecified part of neck of left femur, initial encounter for closed fracture
[2020-12-09] MEDS: LACTATED RINGER'S 1,000 ML IV SCH (07:44)
[2020-12-09] MEDS: oxyCODONE HCL IR 5 MG TAB (IMMEDIATE RELEASE) PO PRN (09:18)
[2020-12-09] MEDS: FLUoxetine HCL 10 MG CAP PO SCH (09:19)
[2020-12-09] MEDS: DOCUSATE SODIUM 100 MG CAP PO SCH ×2 (09:19→20:53)
[2020-12-09] MEDS: FLUTICASONE/VILANTEROL 100/25MCG 14 PUFFS/INHALER INH SCH (09:19)
[2020-12-09] MEDS: AMIODARONE 200 MG TAB PO SCH (09:20)
[2020-12-09] MEDS: PANTOprazole 40 MG TAB PO SCH (09:20)
[2020-12-09] MEDS: MAGNESIUM OXIDE 400 MG TAB PO SCH (09:20)
[2020-12-09] MEDS: FLUoxetine HCL 20 MG CAP PO SCH (09:21)
[2020-12-09] MEDS: ASPIRIN 81 MG ECTAB PO SCH (09:21)
[2020-12-09] MEDS: CLOPIDOGREL BISULFATE 75 MG TAB PO SCH (09:21)
[2020-12-09] MEDS: METOPROLOL SUCC 25MG EXT REL TAB PO SCH (09:21)
[2020-12-09] MEDS: amLODIPine BESYLATE 5 MG TAB PO SCH (09:21)
[2020-12-09] MEDS: ACETAMINOPHEN 325 MG TAB PO PRN ×2 (09:26→15:56)
--- NOTE | 2020-12-09 11:08 | Orthopedic Progress Note ---
Date of Service December 09, 2020 Assessment & Plan (1) Closed left hip fracture: POD #2 s/p Left hip hemiarthroplasty, doing as well as expected. Resume diet. WBAT with walker, likely need assistance as well. OOB to chair. Continue pain control. Continue Prevena dressing. Continue care per primary service. Acute anemia blood loss, Hgb 9.1, will continue to monitor. DVT prophylaxis: TEDs 3 weeks, foot pumps while in hospital, ASA 81 mg BID for 6 weeks. PT/OT. D/C planning. - ok for discharge when medically stable. Possible discharge to [facility] today or tomorrow depending on insurance authorization and bed availability. I, Dr. Vale, saw and examined the patient and discussed the management with my PA. I reviewed my PAs note and agree with the documented findings and the plan of care I developed. Admission and Anticipated Discharge Date Admission Date: December 06, 2020 Subjective States that she's feeling much better today, has more energy. Got a bath with OT and feels a lot better. She's ready to go to [facility], she's had a great experience there in the past. She's tolerating regular diet. Alert and oriented today. Physical Exam Physical Exam: Left hip dressing - Prevena - in place. Functioning. Mild distal thigh edema to left knee, able to active flex left knee to 90 degrees. Knee mildly tender. Able to actively straighten knee but causes pain in her left thigh. No distal edema, no calf tenderness, distal pulses 1+, distal sensation normal. Results & Data ([facility]) Vital Signs (Past 12 Hours) Vital Signs Temp Pulse Pulse Resp BP Pulse Ox 12/09/20 07:14 36.5 C 74 16 151/70 H 90 12/09/20 03:08 66 20 95 12/08/20 23:35 61 21 93 Laboratory Results 12/09/20 12/09/20 12/06/20 Range/Units 06:25 06:25 19:47 WBC 10.88 H (4.8-10.8) K/uL RBC 2.97 L (4.2-5.4) M/uL Hgb 9.1 L (12.0-16.0) g/dL Hct 26.7 L (37-47) % MCV 89.9 (80-100) fL MCH 30.6 (25-34) pg MCHC 34.1 (32-36) g/dL RDW Std Deviation 53.7 H (36.4-46.3) fL RDW Coeff of [place] 16.4 H (11.5-14.5) % Plt Count 131 (130-400) K/uL MPV 8.8 (7.4-10.4) fL Immature Gran % (Auto) 1.2 % Neut % (Auto) 83.2 % Lymph % (Auto) 6.5 % [place] % (Auto) 8.5 % Eos % (Auto) 0.4 % Baso % (Auto) 0.2 % Neut # (Auto) 9.05 H (1.4-6.5) K/uL Lymph # (Auto) 0.71 L (1.2-3.4) K/uL [place] # (Auto) 0.93 H (0.11-0.59) K/uL Eos # (Auto) 0.04 (0-0.5) K/uL Baso # (Auto) 0.02 (0-0.2) K/uL Immature Gran # (Auto) 0.13 H (0.00-0.02) K/uL Sodium 140 (136-145) mmol/L Potassium 4.6 (3.5-5.1) mmol/L Chloride 110 H (98-107) mmol/L Carbon Dioxide 26 (21-32) mmol/L Anion Gap 4.0 (3-11) BUN 43 H (7-18) mg/dl Creatinine 1.27 H D (0.6-1.2) mg/dl Est Cr Clr Drug Dosing 29.1 ml/min Est GFR ( Amer) 43.3 Est GFR (Non-Af Amer) 37.4 BUN/Creatinine Ratio 34.2 H (10-20) Glucose 103 H (70-99) mg/dl Calcium 8.4 L (8.5-10.1) mg/dl Blood Type O Positive Antibody Screen NEGATIVE Crossmatch See Detail (1) Closed left hip fracture Encounter type: initial encounter Qualified Code(s): S72.002A - Fracture of unspecified part of neck of left femur, initial encounter for closed fracture
--- NOTE | 2020-12-09 16:02 | Billing Data ---
Date of Service December 09, 2020 Coding Level of Care Code 67287 Subseq Hosp Care Lvl 2
[2020-12-09] MEDS ORDERED: ACETAMINOPHEN 325 MG TAB PO PRN (18:54)
[2020-12-09] MEDS: ACETAMINOPHEN 325 MG TAB PO SCH ×2 (20:53→23:04)
[2020-12-09] MEDS: ATORVASTATIN 20 MG TAB PO SCH (20:54)
[2020-12-09] MEDS: DOCUSATE SODIUM/SENNA 50/8.6MG TAB PO SCH (20:54)
[2020-12-10] MEDS: ACETAMINOPHEN 325 MG TAB PO SCH ×3 (05:40→18:06)
[2020-12-10] MEDS: LEVOTHYROXINE SODIUM 75 MCG TABLET PO SCH (05:40)
[2020-12-10 06:05] LABS: Basophils # (auto) 0.01 K/uL (0-0.2); Basophils % (auto) 0.1 %; Eosinophils # (auto) 0.11 K/uL (0-0.5); Eosinophils % (auto) 1.2 %; Hematocrit (blood only) 23.8 % (37-47); Hemoglobin 8.1 g/dL (12.0-16.0); Immature Granulocytes # (auto) 0.09 K/uL (0.00-0.02); Lymphocytes # (auto) 0.71 K/uL (1.2-3.4); Mean Corpuscular Hemoglobin 30.5 pg (25-34); Mean Corpuscular Volume 89.5 fL (80-100); Mean Platelet Volume 8.8 fL (7.4-10.4); Monocytes # (auto) 0.68 K/uL (0.11-0.59); Monocytes % (auto) 7.7 %; Neutrophils # (auto) 7.24 K/uL (1.4-6.5); Platelet Count 161 K/uL (130-400); RDW Standard Deviation 52.1 fL (36.4-46.3); Red Blood Count 2.66 M/uL (4.2-5.4); White Blood Count 8.84 K/uL (4.8-10.8)
[2020-12-10 08:00] LABS: BUN Creatinine Ratio 40.3 (10-20); Calcium 8.6 mg/dl (8.5-10.1); Creatinine Clr Calc Pharmacy 42.5 ml/min; Est GFR (African American) 68.5; Est GFR (Non-African American) 59.1; Potassium 4.1 mmol/L (3.5-5.1)
[2020-12-10] MEDS: amLODIPine BESYLATE 5 MG TAB PO SCH (08:52)
[2020-12-10] MEDS: AMIODARONE 200 MG TAB PO SCH (08:52)
[2020-12-10] MEDS: CLOPIDOGREL BISULFATE 75 MG TAB PO SCH (08:53)
[2020-12-10] MEDS: DOCUSATE SODIUM 100 MG CAP PO SCH ×2 (08:53→21:15)
[2020-12-10] MEDS: FLUoxetine HCL 10 MG CAP PO SCH (08:53)
[2020-12-10] MEDS: PANTOprazole 40 MG TAB PO SCH (08:54)
[2020-12-10] MEDS: MAGNESIUM OXIDE 400 MG TAB PO SCH (08:54)
[2020-12-10] MEDS: FLUoxetine HCL 20 MG CAP PO SCH (08:54)
[2020-12-10] MEDS: METOPROLOL SUCC 25MG EXT REL TAB PO SCH (09:00)
[2020-12-10] MEDS: FLUTICASONE/VILANTEROL 100/25MCG 14 PUFFS/INHALER INH SCH (09:06)
--- NOTE | 2020-12-10 09:14 | Orthopedic Progress Note ---
Date of Service December 10, 2020 Assessment & Plan (1) Closed left hip fracture: POD #3 s/p Left hip hemiarthroplasty, doing as well as expected. Resume diet. WBAT with walker, likely need assistance as well. OOB to chair. Continue pain control. Continue Prevena dressing. Continue care per primary service. Acute anemia blood loss, Hgb 8.1, will continue to monitor. DVT prophylaxis: TEDs 3 weeks, foot pumps while in hospital, ASA 81 mg BID for 6 weeks. PT/OT. D/C Marie from ortho stand point. D/C planning. - ok for discharge to SNF when medically stable and bed available. Awaiting insurance authorization and bed availability. Follow-up in Dr. Vale's office for dressing exchange for Silverlon dressing early next week. Once Prevena battery runs out switch to dry sterile dressing. Admission and Anticipated Discharge Date Admission Date: December 06, 2020 Subjective "Left hip, but I expect that". Review of Systems Review of Systems: All systems reviewed & are unremarkable except as noted in HPI & below Physical Exam Physical Exam: LLE: Wiggling toes and ankle. Sensation to light touch intact. BCR < 2sec. calf soft and non-tender. Prevena intact. Sitting comfortably bedside, working with PT attempting to stand, requiring significant assit. Marie still in place Results & Data ([facility]) Vital Signs (Past 12 Hours) Vital Signs Temp Pulse Pulse Pulse Resp BP BP 12/10/20 08:59 73 156/73 H 12/10/20 07:11 36.9 C 73 16 147/73 H 12/09/20 23:02 36.7 C 73 18 127/73 12/09/20 21:57 75 24 Pulse Ox 12/10/20 08:59 12/10/20 07:11 94 12/09/20 23:02 91 12/09/20 21:57 88 L Laboratory Results 12/10/20 12/10/20 12/06/20 Range/Units 05:49 05:45 19:47 WBC 8.84 (4.8-10.8) K/uL RBC 2.66 L (4.2-5.4) M/uL Hgb 8.1 L (12.0-16.0) g/dL Hct 23.8 L (37-47) % MCV 89.5 (80-100) fL MCH 30.5 (25-34) pg MCHC 34.0 (32-36) g/dL RDW Std Deviation 52.1 H (36.4-46.3) fL RDW Coeff of [place] 16.0 H (11.5-14.5) % Plt Count 161 (130-400) K/uL MPV 8.8 (7.4-10.4) fL Immature Gran % (Auto) 1.0 % Neut % (Auto) 82.0 % Lymph % (Auto) 8.0 % [place] % (Auto) 7.7 % Eos % (Auto) 1.2 % Baso % (Auto) 0.1 % Neut # (Auto) 7.24 H (1.4-6.5) K/uL Lymph # (Auto) 0.71 L (1.2-3.4) K/uL [place] # (Auto) 0.68 H (0.11-0.59) K/uL Eos # (Auto) 0.11 (0-0.5) K/uL Baso # (Auto) 0.01 (0-0.2) K/uL Immature Gran # (Auto) 0.09 H (0.00-0.02) K/uL Sodium 138 (136-145) mmol/L Potassium 4.1 (3.5-5.1) mmol/L Chloride 109 H (98-107) mmol/L Carbon Dioxide 26 (21-32) mmol/L Anion Gap 3.0 (3-11) BUN 35 H (7-18) mg/dl Creatinine 0.87 D (0.6-1.2) mg/dl Est Cr Clr Drug Dosing 42.5 ml/min Est GFR ( Amer) 68.5 Est GFR (Non-Af Amer) 59.1 BUN/Creatinine Ratio 40.3 H (10-20) Glucose 88 (70-99) mg/dl Calcium 8.6 (8.5-10.1) mg/dl Blood Type O Positive Antibody Screen NEGATIVE Crossmatch See Detail (1) Closed left hip fracture Encounter type: initial encounter Qualified Code(s): S72.002A - Fracture of unspecified part of neck of left femur, initial encounter for closed fracture
[2020-12-10] MEDS: ASPIRIN 81 MG ECTAB PO SCH (10:19)
--- NOTE | 2020-12-10 17:01 | Hospitalist Progress Note ---
Date of Service December 10, 2020 Assessment & Plan (1) Closed left hip fracture: 89yo female with PMHx that includes CAD, COPD (no home oxygen requirement), paroxysmal atrial fibrillation (on Amiodarone/Metoprolol) and chronic HFpEF (last TTE 08/02: EF 50-55%) who was admitted to [facility] on 12/06 for displaced fracture through left femoral neck, s/p mechanical fall. Acute Blood Loss Anemia -Secondary to hip fracture and some surgical losses -Transfused with 2 units PRBCs yesterday -Hemoglobin at 8.1 today from 9.1 yesterday -Continues to be hemodynamically stable -Likely this change is of limited clinical significance as patient is very stable and has had no symptoms moreover, this could be explained as normal lab variation -Abdominal CT ordered as patient's daughter was concerned her drop in hemoglobin could be related to abdominal hematoma, which she has had in the past - CT A/P showing "Mild thickening of the left iliopsoas muscle which has progressed in the interval. This favors a small intramuscular hematoma" - The above would likely not cause a significant hemoglobin drop and is most likely to represent an incidental finding -Trend CBC Acute Kidney Injury, resolved -Creatinine now normalized, likely that ROXANNA was related to acute blood loss anemia and is now resolving after transfusion -Continue to encourage p.o. intake -Daily BMP Closed Left Hip Fracture Plavix held before surgery. S/p Left Trey-Arthroplasty on 12/07. Doing well post- operatively - PRN Tylenol/Oxycodone/Morphine for pain - PT/OT follow recommendations regarding discharge dispo - trend CBC daily Asymptomatic Bacteriuria - Dirty UA and Urine cx positive for pansensitive Klebsiella - Received prabhu-operative Ancef prior to surgery -Patient remains asymptomatic from urinary standpoint so no treatment indicated Paroxysmal Atrial Fibrillation Chronic. Patient presently in NSR. - Continue Amiodarone 200mg po daily - Continue Metoprolol 25mg po daily CAD/HFpEF Chronic, well-compensated, appears euvolemic on exam. - IV fluids discontinued today - PRN Lasix if appears hypervolemic - continue home Atorvastatin, Metoprolol - Plavix on hold prior to surgery, continue to hold in the setting of her acute blood loss anemia COPD Chronic, stable. - continue Breo Ellipta - Albuterol PRN Depression with anxiety Chronic, stable. - Continue Fluoxetine 30mg po daily GERD Chronic. Stable - Continue Protonix 40mg po daily Hypothyroidism Chronic, stable. - Continue Synthroid 75mcg po daily Hyperlipidemia Chronic, stable. - Continue Atorvastatin 20mg po qPM HTN Stable. - Continue Metoprolol - Continue Amlodipine FEN/GI - regular diet Ppx - SCDs Code - Full code Dispo - med/surg, patient essentially stable for discharge and is awaiting placement at [facility] facility (2) PAF (paroxysmal atrial fibrillation): (3) Depression with anxiety: (4) COPD (chronic obstructive pulmonary disease): (5) GERD (gastroesophageal reflux disease): (6) Hypothyroidism: (7) Hyperlipidemia: (8) CAD (coronary artery disease): (9) CHF (congestive heart failure): (10) HTN (hypertension): Admission and Anticipated Discharge Date Admission Date: December 06, 2020 Supervising Physician Co-Signing Physician Notes I personally examined the patient and verified all logan points of history and exam, discussed case, and agree with decision making with Dr Dowd. Feeling better overall. Still weak, still hip pain. No new complaints. No abdominal pain. No urinary symptoms. Wants to get to rehab. Called daughter who was beside herself with anxiety about the patient having a possible recurrent abdominal wall hematoma, as she has been following her mother's progress on the portal, and was extremely anxious that the drop in hemoglobin related to recurrent abdominal wall hematoma. Offered reassurance, but given the exceeding level of anxiety, as well as the apparent subtle initial presentation of her abdominal wall hematoma before, as well as the fact that her abdominal wall has now had significant amount of surgery on it, repeated CT. Patient denies any shortness of breath. updated dtr on CT results Vitals noted, in general she is awake and alert and in no distress. HEENT normocephalic atraumatic mucous membranes moist. Breathing unlabored no accessory muscle use good effort, lungs clear to auscultation bilaterally no rales rhonchi or wheeze with good effort.. Skin shows no rashes no pallor or icterus. No focal neuro deficits. Hip incision site is dressed, no significant tracking of bruising etc. Abdomen soft nondistended nontender no masses organomegaly. Hip fracturepresumed osteoporoticnow postop. PT/OT. Outpatient bone health evaluation and treatment. Stable for SNF once approved/bed availablehopefully today/tomorrow Deliriumreassurance/supportive care, has improved significantly Acute blood loss anemiarelated to hip fracturegiven this and ROXANNA/ARF was given transfusion of 2 units PRBCshemoglobin juaquin appropriately, today's downward trend either could be simply lab wobble, or a little bit of ongoing bleeding and oozing into the hip area. Clinically she does not appear to be bleeding heavily, continue to follow. CT abdomen checked to evaluate this further as well. ROXANNA/ARFlikely due to blood loss related to the hip fracturehas improved with transfusion, and basically resolved Otherwise as above. Subjective Patient doing well complaining only of mild tenderness at surgical site. Eating well. No other complaints. Review of Systems Review of Systems: All systems reviewed & are unremarkable except as noted in Subjective Physical Exam Physical Exam: General: A&Ox2. NAD. Cooperative. HEENT: Atraumatic, normocephalic. Pulm: Decreased air entry bilaterally. -wheezes, -rales, -rhonchi. Symmetrical chest rise. No increase work of breathing. No respiratory distress. Cardiac: RRR, -mrg. Radial pulses intact and symmetrical. Abdominal: soft, non-tender, non-distended, BS x 4 Skin: warm, dry, left hip dressing is clean, dry and intact Results & Data Results & Data ([facility]) Vital Signs (Past 12 Hours) Vital Signs Temp Pulse Pulse Resp BP BP Pulse Ox 12/10/20 14:40 36.7 C 74 16 118/73 93 12/10/20 08:59 73 156/73 H 12/10/20 07:11 36.9 C 73 16 147/73 H 94 Resident Activity Tracking Resident Involvement: Resident Care Provided Care Provided: Adult Hospital Medicine (1) CAD (coronary artery disease) Associated angina: without angina Coronary Disease-Associated Artery/Lesion type: [place] artery [place] vs. transplanted heart: [place] heart Qualified Code(s): I25.10 - Atherosclerotic heart disease of [place] coronary artery without angina pectoris (2) CHF (congestive heart failure) Heart failure chronicity: acute Heart failure type: unspecified Qualified Code(s): I50.9 - Heart failure, unspecified (3) Hyperlipidemia Hyperlipidemia type: mixed hyperlipidemia Qualified Code(s): E78.2 - Mixed hyperlipidemia (4) Hypothyroidism Hypothyroidism type: acquired Qualified Code(s): E03.9 - Hypothyroidism, unspecified (5) COPD (chronic obstructive pulmonary disease) COPD type: COPD with acute exacerbation Qualified Code(s): J44.1 - Chronic obstructive pulmonary disease with (acute) exacerbation (6) GERD (gastroesophageal reflux disease) Esophagitis presence: esophagitis presence not specified Qualified Code(s): K21.9 - Gastro-esophageal reflux disease without esophagitis (7) HTN (hypertension) Hypertension type: essential hypertension Qualified Code(s): I10 - Essential (primary) hypertension (8) Closed left hip fracture Encounter type: initial encounter Qualified Code(s): S72.002A - Fracture of unspecified part of neck of left femur, initial encounter for closed fracture
--- NOTE | 2020-12-10 17:05 | CT Scan Report ---
ABDOMEN AND PELVIS CT WITHOUT CONTRAST CT DOSE: 1093.51 mGycm HISTORY: anemia concern for abdominal wall hematoma TECHNIQUE: Multiaxial CT images of the abdomen and pelvis were performed without contrast. A dose lo wering technique was utilized adhering to the principles of ALARA. COMPARISON STUDY: Abdomen and pelvis CT 10/02/2019. FINDINGS: Bibasilar interstitial thickening with groundglass densities at the lower lobes. This is li teodora chronic. An atypical pneumonitis could also have a similar appearance in the appropriate clinica l setting. No pneumoperitoneum. No pneumatosis. Interval left total hip arthroplasty. Subcutaneous ed mauro and soft tissue gas within the left lateral hip is likely due to the recent postoperative change. Mild thickening of the left iliopsoas muscle compared to the prior study. This favors a small intram uscular hematoma. The heart remains mildly enlarged. Progressive diastases and thinning of the anteri or abdominal wall with protrusion of the bowel contents. There is a possible large lower abdominal wa ll midline hernia containing multiple loops of small bowel. Cholecystectomy. The unenhanced liver, sp beth, adrenal glands, and pancreas are unremarkable. The bladder is decompressed by Marie catheter. P rior hysterectomy. Colonic diverticulosis. Mild thickening at the mid sigmoid colon. There may be a s lightly inflamed diverticulum with minimal adjacent fat stranding. This is best seen on image 341. Th is may represent a developing acute diverticulitis. No dilated loops of bowel to suggest an obstructi on. Right-sided nephrolithiasis including a staghorn calculus within the upper pole remains unchanged . There are also a few punctate left renal calculi. Focal scarring within the upper pole the right ki dney is stable. Decrease in size in the irregular exophytic lesion at the lower pole the left kidney. This currently measures 2.1 cm. This may represent a resolving collapsing cyst. The abdominal aorta is normal in caliber. No retroperitoneal lymphadenopathy. IMPRESSION: 1. Status post recent left hip arthroplasty. Small amount of subcutaneous gas and edema within the le ft hip is likely due to the recent postoperative change. 2. Mild thickening of the left iliopsoas muscle which has progressed in the interval. This favors a s mall intramuscular hematoma. 3. There is questionable mild thickening and pericolonic fat stranding at the mid sigmoid colon. This may represent an early acute diverticulitis. 4. Progressive diastases and thinning at the anterior abdominal wall with a possible large lower abdo neo wall hernia containing multiple loops of small bowel. No evidence for bowel obstruction.. 5. Bibasilar interstitial thickening with groundglass densities at the lower lobes. This is likely ch ronic. An atypical pneumonitis could also have a similar appearance in the appropriate clinical setti ng. ACT 112: Negative or not required by law. Electronically signed by: Junior Starr M.D. 12/10/2020 5:03 PM
--- NOTE | 2020-12-10 19:17 | Billing Data ---
Date of Service December 10, 2020 Coding Level of Care Code 48417 Subseq Hosp Care Lvl 3
[2020-12-10] MEDS: ATORVASTATIN 20 MG TAB PO SCH (21:15)
[2020-12-10] MEDS: DOCUSATE SODIUM/SENNA 50/8.6MG TAB PO SCH (21:16)
[2020-12-11] MEDS: ACETAMINOPHEN 325 MG TAB PO SCH ×3 (00:15→11:28)
[2020-12-11] MEDS: LEVOTHYROXINE SODIUM 75 MCG TABLET PO SCH (06:11)
[2020-12-11 06:31] LABS: Basophils # (auto) 0.02 K/uL (0-0.2); Basophils % (auto) 0.3 %; Eosinophils % (auto) 2.8 %; Hematocrit (blood only) 23.4 % (37-47); Hemoglobin 7.9 g/dL (12.0-16.0); Immature Granulocytes # (auto) 0.15 K/uL (0.00-0.02); Immature Granulocytes % (auto) 2.1 %; Lymphocytes # (auto) 0.66 K/uL (1.2-3.4); Lymphocytes % (auto) 9.3 %; Mean Corpuscular Hemoglobin 30.3 pg (25-34); Mean Corpuscular Hgb Conc 33.8 g/dL (32-36); Mean Corpuscular Volume 89.7 fL (80-100); Mean Platelet Volume 8.5 fL (7.4-10.4); Monocytes # (auto) 0.59 K/uL (0.11-0.59); Monocytes % (auto) 8.3 %; Neutrophils # (auto) 5.46 K/uL (1.4-6.5); Neutrophils % (auto) 77.2 %; Platelet Count 185 K/uL (130-400); RDW Coefficient of Variation 15.4 % (11.5-14.5); RDW Standard Deviation 50.2 fL (36.4-46.3); Red Blood Count 2.61 M/uL (4.2-5.4); White Blood Count 7.08 K/uL (4.8-10.8)
[2020-12-11 07:22] LABS: Polychromasia 1+
--- NOTE | 2020-12-11 07:27 | Orthopedic Progress Note ---
Date of Service December 11, 2020 Assessment & Plan (1) Closed left hip fracture: POD #4 s/p Left hip hemiarthroplasty, doing as well as expected. Resume diet. WBAT with walker, needing assistance as well. OOB to chair. Continue pain control. Continue Prevena dressing. Continue care per primary service. Acute anemia blood loss, Hgb 7.9, will continue to monitor. DVT prophylaxis: TEDs 3 weeks, foot pumps while in hospital, ASA 81 mg BID for 6 weeks. PT/OT. D/C Marie from ortho stand point. D/C planning. - ok for discharge to SNF when medically stable and bed available. Awaiting insurance authorization and bed availability. Follow-up in Dr. Vale's office for dressing exchange for Silverlon dressing early next week. Once Prevena battery runs out switch to dry sterile dressing. Admission and Anticipated Discharge Date Admission Date: December 06, 2020 Subjective Doing fine Physical Exam Physical Exam: LLE: Wiggling toes and ankle. Sensation to light touch intact. BCR < 2sec. calf soft and non-tender. Prevena intact. Results & Data ([facility]) Vital Signs (Past 12 Hours) Vital Signs Temp Pulse Pulse Resp BP Pulse Ox 12/11/20 04:13 62 18 93 12/10/20 22:44 37.0 C 66 16 147/78 H 99 12/10/20 22:26 67 18 98 Laboratory Results 12/11/20 12/10/20 Range/Units 05:44 05:49 WBC 7.08 (4.8-10.8) K/uL RBC 2.61 L (4.2-5.4) M/uL Hgb 7.9 L (12.0-16.0) g/dL Hct 23.4 L (37-47) % MCV 89.7 (80-100) fL MCH 30.3 (25-34) pg MCHC 33.8 (32-36) g/dL RDW Std Deviation 50.2 H (36.4-46.3) fL RDW Coeff of Elliot 15.4 H (11.5-14.5) % Plt Count 185 (130-400) K/uL MPV 8.5 (7.4-10.4) fL Immature Gran % (Auto) 2.1 % Neut % (Auto) 77.2 % Lymph % (Auto) 9.3 % Loíza % (Auto) 8.3 % Eos % (Auto) 2.8 % Baso % (Auto) 0.3 % Neut # (Auto) 5.46 (1.4-6.5) K/uL Lymph # (Auto) 0.66 L (1.2-3.4) K/uL Loíza # (Auto) 0.59 (0.11-0.59) K/uL Eos # (Auto) 0.20 (0-0.5) K/uL Baso # (Auto) 0.02 (0-0.2) K/uL Immature Gran # (Auto) 0.15 H (0.00-0.02) K/uL Polychromasia 1+ Sodium 138 (136-145) mmol/L Potassium 4.1 (3.5-5.1) mmol/L Chloride 109 H (98-107) mmol/L Carbon Dioxide 26 (21-32) mmol/L Anion Gap 3.0 (3-11) BUN 35 H (7-18) mg/dl Creatinine 0.87 D (0.6-1.2) mg/dl Est Cr Clr Drug Dosing 42.5 ml/min Est GFR ( Amer) 68.5 Est GFR (Non-Af Amer) 59.1 BUN/Creatinine Ratio 40.3 H (10-20) Glucose 88 (70-99) mg/dl Calcium 8.6 (8.5-10.1) mg/dl (1) Closed left hip fracture Encounter type: initial encounter Qualified Code(s): S72.002A - Fracture of unspecified part of neck of left femur, initial encounter for closed fracture
[2020-12-11] MEDS ORDERED: FERROUS SULFATE 325 MG TAB PO SCH (09:00)
[2020-12-11] MEDS: FLUoxetine HCL 20 MG CAP PO SCH (09:17)
[2020-12-11] MEDS: AMIODARONE 200 MG TAB PO SCH (09:17)
[2020-12-11] MEDS: PANTOprazole 40 MG TAB PO SCH (09:17)
[2020-12-11] MEDS: amLODIPine BESYLATE 5 MG TAB PO SCH (09:18)
[2020-12-11] MEDS: ASPIRIN 81 MG ECTAB PO SCH (09:18)
[2020-12-11] MEDS: CLOPIDOGREL BISULFATE 75 MG TAB PO SCH (09:18)
[2020-12-11] MEDS: DOCUSATE SODIUM 100 MG CAP PO SCH (09:18)
[2020-12-11] MEDS: FLUoxetine HCL 10 MG CAP PO SCH (09:18)
[2020-12-11] MEDS: MAGNESIUM OXIDE 400 MG TAB PO SCH (09:18)
[2020-12-11] MEDS: METOPROLOL SUCC 25MG EXT REL TAB PO SCH (09:18)
[2020-12-11] MEDS: FLUTICASONE/VILANTEROL 100/25MCG 14 PUFFS/INHALER INH SCH (09:19)
--- NOTE | 2020-12-11 10:37 | Discharge Summary ---
Date of Service December 11, 2020 Admission HPI Per Admitting Provider Dorie Parra is a pleasant 89yo female with multiple medical problems. She was at home this evening ambulating with her walker when she lost her balance and fell onto her left hip. She had immediate pain and was unable to stand up. She denies LOC or head trauma. No chest pain/palpitations/SOB/dizziness/numbness or weakness preceding or following the fall. Patient has full sensation. Pain is tolerable if she remains still. No additional complaints at this time. ER Course: NSS Principal Diagnosis Left hip fracture Discharge Exam General: A&Ox3. NAD. Cooperative. HEENT: Atraumatic, normocephalic. Pulm: Decreased air entry bilaterally. -wheezes, -rales, -rhonchi. Symmetrical chest rise. No increase work of breathing. No respiratory distress. Cardiac: RRR, -mrg. Radial pulses intact and symmetrical. Abdominal: soft, non-tender, non-distended, BS x 4 Skin: warm, dry, left hip dressing is clean, dry and intact Discharge Data Allergies Allergy/AdvReac Type Severity Reaction Status Date / Time oxycodone Allergy Mild RASH Verified 12/06/20 20:08 alendronate sodium Allergy Unknown [facility] LIST Verified 12/06/20 20:08 Bactrim [facility] Verified 02/07/18 04:16 cefuroxime Allergy Unknown UNKNOWN ON Verified 12/06/20 20:08 LIST Cipro Allergy Unknown Unknown Verified 02/07/18 21:42 ciprofloxacin Allergy Unknown UNKNOWN ON Verified 12/06/20 20:08 LIST codeine Allergy Unknown UNKNOWN ON Verified 12/06/20 20:08 LIST gabapentin Allergy Unknown UNKNOWN ON Verified 12/06/20 20:08 LIST meperidine Allergy Unknown UNKNOWN ON Verified 12/06/20 20:08 LIST piperacillin [From Zosyn] Allergy Unknown Unknown Unverified 12/06/20 20:08 propoxyphene Allergy Unknown UNKNOWN ON Verified 12/06/20 20:09 LIST Sulfa (Sulfonamide Allergy Unknown UNKNOWN ON Verified 12/06/20 20:09 Antibiotics) LIST sulfamethoxazole Allergy Unknown [facility] LIST Verified 12/06/20 20:09 tazobactam [From Zosyn] Allergy Unknown Unknown Unverified 12/06/20 20:09 trimethoprim Allergy Unknown [facility] LIST Verified 12/06/20 20:09 acetaminophen [From Percocet] Allergy Unknown Verified 12/06/20 22:59 amphetamine AdvReac Severe UNKNOWN ON Verified 12/06/20 20:09 LIST dextroamphetamine AdvReac Severe UNKNOWN ON Verified 12/06/20 20:09 LIST hydrochlorothiazide AdvReac Intermediate GI DISTRESS Verified 12/06/20 20:09 methyldopa AdvReac Intermediate GI DISTRESS Verified 12/06/20 20:09 fluoxetine [From Prozac] AdvReac Unknown Hallucinati Unverified 12/06/20 20:09 ng Consultations 12/06/20 19:09 Consult Orthopedic Surgery Routine 12/06/20 19:49 ED Decision to Admit Stat 12/06/20 23:07 Consult Orthopedic Surgery Routine Procedures Performed Operation Date: 12/07/20 10:30 Actual Procedures p Left Hip Trey-Arthroplasty(Left) - Gallito Vale MD Ordered Studies 12/10/20 15:38 CT abd pelvis wo con Routine Hospital Course (1) Closed left hip fracture: 89yo female with PMHx that includes CAD, COPD (no home oxygen requirement), paroxysmal atrial fibrillation (on Amiodarone/Metoprolol) and chronic HFpEF (last TTE 08/02: EF 50-55%) who was admitted to [facility] on 12/06 for displaced fracture through left femoral neck, s/p mechanical fall. Acute Blood Loss Anemia -Secondary to hip fracture and some surgical losses -Transfused with 2 units PRBCs -Hemoglobin stable after transfusion, patient asymptomatic -Continues to be hemodynamically stable at DC -Abdominal CT ordered as patient's daughter was concerned her drop in hemoglobin could be related to abdominal hematoma, which she has had in the past - CT A/P showing "Mild thickening of the left iliopsoas muscle which has progressed in the interval. This favors a small intramuscular hematoma" - The above would likely not cause a significant hemoglobin drop and is most likely to represent an incidental finding Acute Kidney Injury, resolved -Creatinine normalized, likely that ROXANNA was related to acute blood loss anemia and is now resolving after transfusion -Continue to encourage p.o. intake Closed Left Hip Fracture - S/p Left Trey-Arthroplasty on 12/07. Doing well post-operatively - PRN Tylenol/Oxycodone - F/U as outpatient with Orthopedic surgery - Discharge to SNF for continued PT/OT Asymptomatic Bacteriuria - Dirty UA and Urine cx positive for pansensitive Klebsiella - Received prabhu-operative Ancef prior to surgery - Patient remained asymptomatic from urinary standpoint so no treatment indicated Paroxysmal Atrial Fibrillation - Chronic. Patient in NSR throughout admission. - Continue Amiodarone 200mg po daily - Continue Metoprolol 25mg po daily CAD/HFpEF - Chronic, well-compensated, appears euvolemic on exam. - IV fluids discontinued today - PRN Lasix if she appears hypervolemic - continue Atorvastatin, Metoprolol - Continue home Plavix at DC COPD - Chronic, stable. - Continue Breo Ellipta - Albuterol PRN Depression with anxiety - Chronic, stable. - Continue Fluoxetine 30mg po daily GERD - Chronic. Stable - Continue Protonix 40mg po daily Hypothyroidism - Chronic, stable. - Continue Synthroid 75mcg po daily Hyperlipidemia - Chronic, stable. - Continue Atorvastatin 20mg po qPM HTN - Stable. - Continue Metoprolol - Continue Amlodipine FEN/GI - regular diet Dispo - SNF (2) PAF (paroxysmal atrial fibrillation): (3) Depression with anxiety: (4) COPD (chronic obstructive pulmonary disease): (5) GERD (gastroesophageal reflux disease): (6) Hypothyroidism: (7) Hyperlipidemia: (8) CAD (coronary artery disease): (9) CHF (congestive heart failure): (10) HTN (hypertension): Total Time Total Time Spent Total Time Spent (In Minutes): <30 Discharge Plan Discharge Items Patient Disposition: Transfer Group Home Fac Reason For Visit: LEFT HIP FRACTURE Discharge Diagnosis: femoral neck fracture left hip Activity: Per Instructions section Weightbearing: Left weightbearing Weightbearing Comment: with assistance of a walker Non-emergency contact: Surgeon Call non-emergency contact if: your symptoms worsen, your pain is not controlled, your pain is concerning for you, your temperature is above 101, your wound has increased redness, your wound has increased drainage and your wound pain has increased Follow-up/Referrals: Madyson Rodríguez MD [Primary Care Provider] - Gallito Vale MD [Physician] - 12/23/20 9:30 am Rianna Ramirez P.A.-CmAerica [Physician Price Analyst] - 12/17/20 10:15 am Diet: Regular Addtl Attending Provider Instructions: You were admitted to [facility] due to a left hip fracture after you had a fall at home. He subsequently had surgery to fix the left hip fracture. After this, you were found to have acute anemia due to blood loss and received transfusion with 2 units of red blood cells. This stabilized your hemoglobin and you had no further issues. You will be discharged to a [facility] facility where you will continue to work with physical therapy to regain your strength, with plans to eventually return home. Please follow-up with your orthopedic surgeon and follow instructions as below. Additionally, we recommend that you follow-up with your primary care provider for continued management of your chronic conditions and discussion of your hospitalization. If you have any concerning symptoms such as chest pain, palpitations, shortness of breath, loss of consciousness, fevers, increased pain at the surgical site, increased bleeding at the surgical site, or any other concerning symptoms please contact your healthcare provider or seek emergency care. Addtl Filter Screen Cleaner Provider Instructions: New Medicine: * You will likely be taking one or more of these medicines: 1. oxycodone - Take, as directed, when you need it, every four to six hours to control your pain. 2. Iron Sulfate - Take three times each day for the month after surgery to help you replace the blood lost during surgery. Over the counter. 3. Vitamin C- take twice daily while on Iron - over the counter 4. Colace - take twice daily while on pain medication - over the counter 5. Aspirin - take twice daily x 6 weeks to prevent blood clots. Take with food. Over the counter. * The most common side effects of pain medicine and iron are nausea and constipation. If nausea or constipation is too much of a problem or if you have any questions about your new medicines or doses, call [facility] at . We will try to help you manage these issues. "VERY IMPORTANT TO READ AND REVIEW" Blood Clots and Blood Thinning Medicine: * You are given Lovenox 30mg twice daily during the immediate post-operative period to lessen the risk of blood clots forming in your legs and/or lungs. Lovenox is usually given for three weeks after surgery. Once Lovenox is completed, you will take Aspirin 81 mg twice daily x 3 weeks. Pain: * The immediate post-operative period after hip replacement surgery is often quite painful. * You are given a prescription for pain medicine. You should take it, as directed, when you need it, especially before physical therapy and before going to bed. Pain that interferes with sleep is very common and can last several months. * You will likely need pain medicine for the first two to four weeks. It will not stop all of the pain. The pain will lessen and as you feel better, you may change to milder pain medicine such as Tylenol. * The most common side effects of pain medicine are nausea and constipation, so don't take more than you need. Dressings: * Keep Prevena incisional vac on left hip at all times. This will come off at one week appointment. Battery life is for 8 days. Do not remove or redress left hip wound. Do not remove, you may shower with this dressing in place. Follow up as scheduled in our office for removal of incisional wound vac. Physical Therapy: * Follow the "Hip Precautions Instructions." * In some cases, the social services designee at the hospital will arrange to have a ther apist come to your house for the first couple of weeks to help you learn these skills. * You need to practice on your own or with the help of a family member as needed. * When you learn these skills, most of the therapy can be done on your own. Home Exercise: * You were shown a series of exercises in the hospital. Do these exercises three to four times each day including the exercises you were shown in physical therapy. Walking: * Get up and walk several times each day. For the first four weeks, try not to stand or walk for more than one hour at a time. If you do stand or walk for more than one hour, you will not hurt anything, but your leg will likely swell. * As you feel comfortable, you may change from the walker or crutches to a cane and then to independent walking. SELF CARE INSTRUCTIONS AFTER TOTAL HIP REPLACEMENT Until the incision and soft tissues around your hip have healed, there is a possibility that the hip prosthesis could dislocate. A. Observe the following precautions to prevent dislocation: 1. Don't bend your hip greater than 90 degrees. 2. Avoid crossing your legs or ankles while standing or lying. 3. Sit with your feet placed 6 inches apart. 4. When sitting, keep your knees below your hips. Sit on a firm surface, avoid deep, soft chairs and couches. Use an elevated toilet seat in the bathroom. 5. Don't bend over at the waist. Use a long handled shoehorn and a sock aid to help you put on your shoes and socks. A vending machine coin collector can help you order picker objects that are too high or too low to reach. 6. Keep car riding to a minimum for at least one month after surgery. B. Your balance may be shaky for a while. Use crutches or a walker until directed by your doctor. C. Use hand rails when walking on stairs. D. Wear low heeled shoes with non-slip soles. E. Be sure that your floors are free of things that could trip you - throw rugs , electrical cords, small objects. Avoid wet and waxed floors, especially with crutches and canes. F. Try to walk several times a day with rest periods between. G. Continue with all the exercises taught to you in the hospital. Again, make walking a part of your daily routine. VERY IMPORTANT TO READ AND REVIEW A. Take Lovenox (blood thinning medications) as directed by your doctor. B. There are a few signs you need to watch for after you are home. If you notice any of the followin. Increased severe hip pain. Some pain is expected especially when you exercise. 2. Increased swelling in your leg or knee; pain or swelling of the calf muscle in either lower leg. 3. Any fluid drainage from the incision. 4. Shortness of breath or chest pain. TEDs/Elastic Stockings: * The white elastic stockings help limit swelling and prevent blood clots from forming in your legs. The more you wear them, the more they work. * Wear them for six weeks. Prevention of Infection: * Take antibiotics one hour before any dental cleaning, dental work, urological procedure, gastrointestinal procedure or any invasive surgery in order to prevent your new joint from getting infected. * You may get the antibiotics from the doctor performing the procedure or we will call in a prescription to the pharmacy of your choice. Call the office for a prescription at least 2 days prior to your appoin tment. Things to Watch For: * Drainage from the incision site that occurs more than one week after your surgery. * Severely increased leg pain or swelling. * Increased redness at the incision site. * Fever above 101 degrees Fahrenheit. * Unusual chest pain or shortness of breath. * Unusual pain or burning with urination. Pending Studies at Discharge: No Stand-Alone Forms: My [facility] Skilled Items Patient informed of condition?: Yes DNR: No Discharge Level of Care: Skilled Communicable Disease: No Discharge Prognosis: Stable Lines: None Urinary Catheter: No Medications and DC Order Prescriptions: New acetaminophen 325 mg Tablet 650 mg PO Q6 PRN (Reason: fever or pain) 14 Days Qty: 56 RF: 0 aspirin 81 mg Tablet,Delayed Release (Dr/Ec) 81 mg PO QAM 30 Days Qty: 30 RF: 0 Continued docusate sodium 100 mg capsule 100 mg PO BID RF: 0 albuterol sulfate [Ventolin HFA] 90 mcg/actuation HFA aerosol inhaler 1 - 2 puff INHALATION QID PRN (Reason: Shortness Of Breath Or Wheezing) Qty: 18 RF: 5 Breo Ellipta 100-25 mcg/dose blister with device 1 inh INH QAM Qty: 28 RF: 4 clopidogrel [Plavix] 75 mg tablet 75 mg PO QAM Qty: 90 RF: 1 atorvastatin 20 mg tablet 20 mg PO QPM Qty: 90 RF: 0 amlodipine 10 mg tablet 10 mg PO QAM Qty: 90 RF: 3 levothyroxine 75 mcg capsule 75 mcg PO DAILY Qty: 90 RF: 3 nystatin [Nystop] 100,000 unit/gram powder 1 applic topical DAILY PRN (Reason: Unknown) RF: 0 Adult Probiotic 3 billion cell capsule 3,000 mmu cells PO QAM RF: 0 ferrous sulfate [Iron (ferrous sulfate)] 325 mg (65 mg iron) tablet 325 mg PO DAILY RF: 0 fluoxetine 10 mg capsule 10 mg PO DAILY Qty: 90 RF: 0 fluoxetine 20 mg capsule 20 mg PO DAILY Qty: 90 RF: 3 furosemide 20 mg tablet 40 mg PO DAILY PRN (Reason: Edema) RF: 0 omeprazole 20 mg tablet,delayed release (DR/EC) 20 mg PO QAM Qty: 90 RF: 3 diclofenac sodium [Voltaren] 1 % gel 2 gm topical BID RF: 0 multivitamin Tablet 1 tab PO QAM RF: 0 potassium chloride 10 mEq tablet,ER particles/crystals 10 meq PO DAILY PRN (Reason: .) RF: 0 magnesium oxide 400 mg (241.3 mg magnesium) tablet 400 mg PO QAM RF: 0 amiodarone 200 mg tablet 200 mg PO QAM RF: 0 metoprolol succinate 25 mg tablet extended release 24 hr 25 mg PO DAILY RF: 0 Discontinued acetaminophen [Tylenol] 325 mg Tablet 325 mg PO QID PRN (Reason: Pain) RF: 0 Discharge Orders: Discharge Order (Routine); Ordered 12/11/20 Ordered By: Kodak Chavez Admission Data Admit Date/Time: 12/06/20 21:10 Attending Provider: Sulaiman Hernandez Admit Provider: Maria T Collins Primary Care Provider: Madyson Rodríguez Other Providers: Alfie Collins ; Maria T Collins ; Teri Garcia at [facility] Other Interventions: Discharge Summary Assessment (RN) Last Done: 12/11/20 10:49 Supervising Physician Co-Signing Physician Notes I personally examined the patient and verified all logan points of history and exam, discussed case, and agree with decision making with Dr Dowd. Generally feeling good. Hip pain a bit better than before. Breathing is fine. Up to going to rehab. Vitals noted, in general she is awake and alert and in no distress. HEENT normocephalic atraumatic mucous membranes moist. Breathing unlabored no accessory muscle use good effort, lungs clear to auscultation bilaterally no rales rhonchi or wheeze with good effort. Skin shows no rashes no pallor or icterus. No focal neuro deficits. Mentally much more clear overall. Hip fracturepresumed osteoporoticnow postop. PT/OT. Outpatient bone health evaluation and treatment. Stable for SNF with rehab emphasis Deliriumreassurance/supportive care, has improved significantly overall Acute blood loss anemiarelated to hip fracturegiven this and ROXANNA/ARF was given transfusion of 2 units PRBCshemoglobin juaquin appropriately, still has had a little bit of a slow trickle down, I suspect it is stopped, but would request clinical follow-up as well as a CBC in a few days at SNF. ROXANNA/ARFlikely due to blood loss related to the hip fracturehas improved with transfusion, and resolved Otherwise as above. Resident Activity Tracking Resident Involvement: Resident Care Provided Care Provided: Adult Hospital Medicine
--- NOTE | 2020-12-11 16:56 | Billing Data ---
Date of Service December 11, 2020 Coding Level of Care Code D/C Day Management <30 mins
== END 2020-12-11 13:25 | DRG 522 ==
LOC: ED 18:56 → 3E 21:10 → SUATTDRO 21:10 → 3E 21:46